=== PATIENT | female | born 1940 | race Caucasian/White ===

== ENCOUNTER 2018-08-28 11:13 | Outpatient (CLI) | payer MEDICARE, OTHER, SELFPAY ==
--- NOTE | 2018-08-28 12:55 | DI.RAD_ITS ---
SYMPTOM/DIAGNOSIS: SOB, R06.02 PA AND LATERAL CHEST: Heart size and pulmonary vasculature are within normal limits. The lungs show no evidence of congestive heart failure or pneumonia. No effusions or pneumothoraces are identified. Stable degenerative changes are seen in the spine. IMPRESSION: No acute pulmonary process.
== END 2018-08-28 11:33 ==
PROVIDERS: PCP Family Medicine; Visit Provider Physician Assistant Medical
DX: R05 Cough (principal); R06.02 Shortness of breath
CPT/HCPCS: 71046

== ENCOUNTER 2018-08-28 13:58 | Outpatient (REF) | payer MEDICARE, OTHER, SELFPAY ==
[2018-08-28 19:28] LABS: Absolute Basophil Count 0.01 k/cumm (0.0-0.2); Absolute Eosinophil Count 0.16 k/cumm (0.0-0.7); Absolute Lymphocyte Count 1.49 k/cumm (1.2-3.4); Absolute Monocyte Count 0.63 k/cumm (0.11-0.7); Absolute Neutrophil Count 3.44 k/cumm (1.2-6.7); Basophils % 0.2; Eosinophils % 2.8; HCT 35.8 % (36.0-46.0); HGB 11.4 g/dL (12.0-15.5); Mean Corp. HGB Concentration 31.8 g/dL (32.0-36.0); Mean Corpuscular Hemoglobin 30.3 pg (27.0-33.0); Mean Corpuscular Volume 95.2 fL (80-95); Mean Platelet Volume 10.3 fL (8.0-11.0); Platelet Count 285 x1000/uL (130-400); RBC 3.76 m/cumm (4.00-5.20); RBC Distribution Width 13.3 % (11.7-14.6); White Blood Cell Count 5.73 k/cumm (4.4-10.8)
[2018-08-28 19:35] LABS: INR 1.1 (1.0-3.5); Prothrombin Time 10.3 sec (9.3-10.8)
[2018-08-28 19:38] LABS: ALT 20 U/L (12-78); AST 28 U/L (15-37); Albumin 3.7 g/dL (3.4-5.0); Alkaline Phosphatase 97 U/L (46-116); Anion Gap 9.8 mmol/L (3-11); BUN 26 mg/dL (7-18); Bilirubin, Total 0.5 mg/dL (0.2-1.0); CO2 28.2 mmol/L (21.0-32.0); Chloride 102 mmol/L (98-107); Cholesterol 216 mg/dL (50-200); Estimated GFR 36.46 (mL/min/1.73m2); Glucose 92 mg/dL (70-100); HDL Cholesterol 67 mg/dL (40-60); LDL CHOLESTEROL 136 mg/dL (<100); Potassium 4.9 mmol/L (3.5-5.1); Sodium 140 mmol/L (136-145); Total Protein 6.7 g/dL (6.4-8.2); Triglyceride 117 mg/dL (30-150)
== END 2018-08-28 14:18 ==
LOC: NCHCN 13:58
PROVIDERS: PCP Family Medicine; Visit Provider Physician Assistant Medical
DX: I48.91 Unspecified atrial fibrillation (principal); R60.0 Localized edema; R06.02 Shortness of breath; E78.5 Hyperlipidemia, unspecified; I10 Essential (primary) hypertension
CPT/HCPCS: 80053; 80061; 83721; 85025; 85610

== ENCOUNTER 2018-08-30 07:38 | Outpatient (CLI) | payer MEDICARE, OTHER, SELFPAY ==
[2018-08-30 08:12] LABS: Prothrombin Time 9.9 sec (9.3-10.8)
== END 2018-08-30 07:58 ==
PROVIDERS: PCP Family Medicine; Visit Provider Physician Assistant Medical
DX: I48.91 Unspecified atrial fibrillation (principal); Z79.01 Long term (current) use of anticoagulants
CPT/HCPCS: 36415; 85610

== ENCOUNTER 2018-09-02 08:35 | Outpatient (CLI) | payer MEDICARE, OTHER, SELFPAY ==
[2018-09-02 09:28] LABS: INR 1.1 (1.0-3.5); Prothrombin Time 10.9 sec (9.3-10.8)
== END 2018-09-02 08:55 ==
PROVIDERS: PCP Family Medicine; Visit Provider Physician Assistant Medical
DX: I48.91 Unspecified atrial fibrillation (principal); Z79.01 Long term (current) use of anticoagulants
CPT/HCPCS: 36415; 85610

== ENCOUNTER 2018-10-01 10:42 | Outpatient (CLI) | payer MEDICARE, OTHER, SELFPAY ==
[2018-10-01 11:29] LABS: Abs Immature Grans 0.01 k/cumm (0.0-0.09); Absolute Basophil Count 0.01 k/cumm (0.0-0.2); Absolute Eosinophil Count 0.07 k/cumm (0.0-0.7); Absolute Lymphocyte Count 1.13 k/cumm (1.2-3.4); Absolute Monocyte Count 0.75 k/cumm (0.11-0.7); Absolute Neutrophil Count 5.19 k/cumm (1.2-6.7); Basophils % 0.1; HCT 33.3 % (36.0-46.0); HGB 10.5 g/dL (12.0-15.5); Immature Grans % 0.1; Lymphocytes % 15.8; Mean Corp. HGB Concentration 31.5 g/dL (32.0-36.0); Mean Corpuscular Hemoglobin 29.7 pg (27.0-33.0); Mean Corpuscular Volume 94.1 fL (80-95); Mean Platelet Volume 9.9 fL (8.0-11.0); Monocytes % 10.5; Neutrophils % 72.5; Platelet Count 228 x1000/uL (130-400); RBC 3.54 m/cumm (4.00-5.20); RBC Distribution Width 13.5 % (11.7-14.6); White Blood Cell Count 7.16 k/cumm (4.4-10.8)
[2018-10-01 12:56] LABS: ALT 24 U/L (12-78); AST 29 U/L (15-37); Albumin 3.5 g/dL (3.4-5.0); Alkaline Phosphatase 87 U/L (46-116); Anion Gap 10.4 mmol/L (3-11); BUN 21 mg/dL (7-18); Bilirubin, Total 0.9 mg/dL (0.2-1.0); CO2 28.6 mmol/L (21.0-32.0); CREATININE 1.14 mg/dL (0.55-1.02); Calcium 8.6 mg/dL (8.5-10.1); Chloride 101 mmol/L (98-107); Estimated GFR 46.22 (mL/min/1.73m2); Glucose 124 mg/dL (70-100); NT-proBNP 1918 pg/mL; Potassium 3.9 mmol/L (3.5-5.1); Sodium 140 mmol/L (136-145); Total Protein 6.6 g/dL (6.4-8.2)
== END 2018-10-01 11:02 ==
PROVIDERS: PCP Family Medicine; Visit Provider Specialist/Technologist Athletic Trainer
DX: I50.9 Heart failure, unspecified (principal); R06.02 Shortness of breath; I48.91 Unspecified atrial fibrillation
CPT/HCPCS: 36415; 80053; 83880; 85025

== ENCOUNTER 2018-10-19 19:37 | Outpatient (REF) | payer MEDICARE, OTHER, SELFPAY ==
[2018-10-19 22:17] LABS: HCT 37.5 % (36.0-46.0); HGB 12.1 g/dL (12.0-15.5)
[2018-10-19 22:30] LABS: ALT 27 U/L (12-78); AST 28 U/L (15-37); Albumin 3.5 g/dL (3.4-5.0); Alkaline Phosphatase 100 U/L (46-116); Anion Gap 8.3 mmol/L (3-11); BUN 37 mg/dL (7-18); Bilirubin, Total 0.3 mg/dL (0.2-1.0); CO2 30.7 mmol/L (21.0-32.0); CREATININE 1.81 mg/dL (0.55-1.02); Calcium 9.4 mg/dL (8.5-10.1); Chloride 100 mmol/L (98-107); Estimated GFR 27.11 (mL/min/1.73m2); Glucose 104 mg/dL (70-100); Magnesium 2.1 mg/dL (1.8-2.4); NT-proBNP 1969 pg/mL; Potassium 4.5 mmol/L (3.5-5.1); Sodium 139 mmol/L (136-145); Total Protein 6.8 g/dL (6.4-8.2)
== END 2018-10-19 19:57 ==
LOC: NCHCN 19:37
PROVIDERS: PCP Family Medicine; Visit Provider Specialist/Technologist Athletic Trainer
DX: R42 Dizziness and giddiness (principal); I50.9 Heart failure, unspecified; R27.9 Unspecified lack of coordination
CPT/HCPCS: 80053; 83735; 83880; 85014; 85018

== ENCOUNTER 2018-10-23 12:39 | Outpatient (REF) | payer MEDICARE, OTHER, SELFPAY ==
[2018-10-23 19:08] LABS: Anion Gap 5.5 mmol/L (3-11); BUN 29 mg/dL (7-18); CO2 32.5 mmol/L (21.0-32.0); CREATININE 1.52 mg/dL (0.55-1.02); Chloride 103 mmol/L (98-107); Estimated GFR 33.16 (mL/min/1.73m2); Glucose 97 mg/dL (70-100); Potassium 4.5 mmol/L (3.5-5.1); Sodium 141 mmol/L (136-145)
== END 2018-10-23 12:59 ==
LOC: NCHCN 12:39
PROVIDERS: PCP Family Medicine; Visit Provider Family Medicine
DX: I50.9 Heart failure, unspecified (principal)
CPT/HCPCS: 80048

== ENCOUNTER 2018-11-02 01:32 | Outpatient (CLI) | payer MEDICARE, OTHER, SELFPAY ==
--- NOTE | 2018-11-02 14:45 | DI.US_ITS ---
SYMPTOM/DIAGNOSIS: DIZZY SPELLS, R42 CAROTID ULTRASOUND: There is a mild amount of calcified and non calcified plaque in the proximal right internal carotid artery. The right common carotid artery is tortuous. There is mild systolic velocity of elevation in the distal right internal carotid artery consistent with a 50-60% stenosis. No significant plaque or velocity elevations are seen in the left internal carotid artery. Both vertebral arteries show antegrade flow. IMPRESSION: Mild amount of plaque in the proximal right internal carotid artery. Mild velocity elevation corresponding to 50-60% stenosis. No significant left internal carotid artery stenosis.
== END 2018-11-02 01:52 ==
PROVIDERS: PCP Family Medicine; Visit Provider Specialist/Technologist Athletic Trainer
DX: R42 Dizziness and giddiness (principal); I65.21 Occlusion and stenosis of right carotid artery
CPT/HCPCS: 93880

== ENCOUNTER 2018-12-01 03:03 | Outpatient (CLI) | payer MEDICARE, OTHER, SELFPAY ==
--- NOTE | 2018-12-01 | PFT_ITS ---
PULMONARY FUNCTION TEST REPORT Patient identification Lyubov Lopez DATE OF 1940 DATE OF SERVICE 12/01/18 REQUESTING PROVIDER - Lyubov Tee M.D. INTERPRETATION OF STUDY Spirometry shows no evidence of obstructive airways disease, but there is significant bronchodilator response. LUNG VOLUMES - Lung volumes show no evidence of restriction. DIFFUSION CAPACITY- Moderately reduced, which is normal when corrected to alveolar volume. AIRWAY RESISTANCE - Normal. IMPRESSION While there is no evidence of obstructive airways disease, there is significant bronchodilator response and this is associated with moderate diffusion defect. This may still go along with underlying hyper reactive airway, therefore if the diagnosis of asthma is in question, proceeding with methacholine challenge could prove to be useful. Maria De Jesus Reece M.D. PEACE/doreen T 12/02/18
[2018-12-01] MEDS: Inhaler, Assist Device 1 EACH MC (11:13)
[2018-12-01] MEDS: Albuterol HFA 18 GM 200 PUFF INH IH (11:13)
== END 2018-12-01 03:23 ==
PROVIDERS: PCP Family Medicine; Visit Provider Family Medicine
DX: R06.02 Shortness of breath (principal); Z87.891 Personal history of nicotine dependence
CPT/HCPCS: 94060; 94150; 94726; 94729

== ENCOUNTER 2018-12-11 18:27 | Outpatient (REF) | payer MEDICARE, OTHER, SELFPAY | END 2018-12-11 18:47 | LOC: NCHCN 18:27 | PROVIDERS: PCP Family Medicine; Visit Provider Family Medicine | DX: R30.0 Dysuria (principal) | CPT/HCPCS: 87077; 87086; 87186 ==

== ENCOUNTER 2018-12-25 14:33 | Outpatient (CLI) | payer MEDICARE, OTHER, SELFPAY ==
[2018-12-25 15:03] LABS: Creatine Kinase 146 U/L (26-192); Troponin I 0.02 ng/mL (0.00-0.06)
[2018-12-25 15:23] LABS: Cholesterol 274 mg/dL (50-200); HDL Cholesterol 70 mg/dL (40-60); LDL CHOLESTEROL 180 mg/dL (<100); Triglyceride 118 mg/dL (30-150)
== END 2018-12-25 14:53 ==
PROVIDERS: PCP Family Medicine; Visit Provider Family Medicine
DX: E78.5 Hyperlipidemia, unspecified (principal); I25.10 Atherosclerotic heart disease of native coronary artery without angina pectoris; K21.9 Gastro-esophageal reflux disease without esophagitis; I48.91 Unspecified atrial fibrillation
CPT/HCPCS: 36415; 80061; 82550; 83721; 84484

== ENCOUNTER 2019-01-15 03:01 | Outpatient (CLI) | payer MEDICARE, OTHER, SELFPAY ==
--- NOTE | 2019-01-15 09:43 | PFT_ITS ---
PULMONARY FUNCTION TEST REPORT DATE OF SERVICE: January 15, 2019 REQUESTING PROVIDER: Lyubov Tee M.D. Spirometry shows no evidence of obstructive airways disease, no bronchodilator response. IMPRESSION: Normal spirometry. Clinical correlation recommended. PEACE/patric D/
--- NOTE | 2019-01-15 09:52 | PFT_ITS ---
METHACHOLINE CHALLENGE TEST DATE OF SERVICE: January 15, 2019 Good patient effort. After normal spirometry, methacholine challenge testing was carried out up to a methacholine concentration of 1 mg/mL. At that point the patient had a 20% drop in FEV1. IMPRESSION: Strongly positive methacholine challenge test. Clinical correlation recommended. PEACE/patric D/
[2019-01-15] MEDS: Methacholine 100 MG VIAL IH (13:42)
[2019-01-15] MEDS: Albuterol HFA 18 GM 200 PUFF INH IH (13:43)
[2019-01-15] MEDS: Inhaler, Assist Device 1 EACH MC (13:43)
== END 2019-01-15 03:21 ==
PROVIDERS: PCP Family Medicine; Visit Provider Family Medicine
DX: R06.02 Shortness of breath (principal)
CPT/HCPCS: 94060; 95070; J7674

== ENCOUNTER 2019-05-17 12:22 | Emergency (ER) | payer MEDICARE, OTHER, SELFPAY ==
--- NOTE | 2019-05-17 12:29 | DI.CT_ITS ---
SYMPTOMS/DIAGNOSIS: FRONTAL TRAUMA, LOW NECK PAIN, ON COUMADIN CT BRAIN: Noncontrast examination was performed. Age-appropriate cerebral atrophy and small vessel ischemic disease is present. No acute intracranial hemorrhage, midline shift or mass effect is identified. The ventricles are intact. The basilar cisterns are patent. The visualize paranasal sinuses are clear, as are the mastoid air cells. The calvarium is intact. IMPRESSION: No acute intracranial process. CT SCAN OF THE CERVICAL SPINE: Multiple contiguous axial images of the cervical spine were obtained. Sagittal and coronal reformatted images were evaluated on the Siemens workstation. No acute fractures or subluxations in the cervical spine are obtained. Moderate degenerative changes are present throughout the cervical spine. The soft tissues are unremarkable. IMPRESSION: No acute fractures or subluxations in the cervical spine. The findings were discussed with the Emergency Department on the date of the examination.
[2019-05-17 12:30] VITALS: PULSE 80; RESP 18; TEMP 36.8; O2SAT 98
[2019-05-17 12:34] VITALS: BP 190/80
--- NOTE | 2019-05-17 12:39 | ED.GENADUL_ITS ---
Discharge Plan Disposition Patient Disposition: HOME Condition: Improving Discharge Details Chief Complaint: HeadInjury Clinical Impression: Contusion of face Primary Care Provider: Tony Tatum ED Provider: Josué Kidd Home Meds and New Rx's Prescriptions: Continued tramadol [Ultram] 50 MG tablet 50 mg PO BID RF: 0 amitriptyline 50 MG tablet 50 mg PO HS PRN PRNRF: 0 pantoprazole 40 MG tablet,delayed release (DR/EC) 40 mg PO DAILY RF: 0 hydroxychloroquine 200 MG tablet 200 mg PO DAILY RF: 0 Savella 50 MG tablet 50 mg PO BID RF: 0 furosemide 40 mg Tablet 40 mg DAILY RF: 0 hydralazine 10 mg Tablet 10 mg DAILY RF: 0 atorvastatin 20 mg Tablet 20 mg DAILY RF: 0 albuterol sulfate 2.5 mg /3 mL (0.083 %) Solution For Nebulization 2.5 mg PRNRF: 0 amiodarone 200 mg Tablet 200 mg DAILY RF: 0 amitriptyline 50 mg Tablet 50 mg DAILY RF: 0 warfarin 5 mg Tablet 5 - 25 mg DAILY RF: 0 metoprolol tartrate 50 mg Tablet 50 mg DAILY RF: 0 loratadine 10 mg Tablet 10 mg RF: 0 Discharge Instructions Instructions: Contusion in Adults (ED) Additional Instructions: Your INR was 1.[address] scan of the head, cervical spine, and x-rays of the chest and ribs did not show an acute finding. You have a contusion and bruising which will progress and you may develop bruising around both eyes and cheeks. May apply ice to the area to reduce discomfort. Warm compress will aid in healing. Continue your regular medications. Return for any acute concerns Medical Decision Making 78-year-old female was anticoagulated on warfarin. She was leaving her family's house last night when she tripped and stumbled down 2 stairs, striking the edge of a door with her forehead and was knocked to the ground. She did not have loss of consciousness. She slept well last night. Today she has mild left chest discomfort along the rib wall, and mild headache. Labs are unremarkable given her age. CT scan of the head and cervical spine without acute findings. Chest and rib x-rays without acute finding. Consistent with frontal contusion. Discussed with her anticipated course of resolution of the ecchymosis. She is stable for discharge to home with family Lab Data Lab results reviewed: Yes I reviewed the patient's lab results. Laboratory Results - last 24 hr 05/17/19 05/17/19 05/17/19 12:41 12:41 12:41 WBC 7.93 RBC 3.93 L Hgb 12.0 Hct 37.0 MCV 94.1 MCH 30.5 MCHC 32.4 RDW 13.6 Plt Count 268 MPV 10.0 PT 18.1 H INR 1.8 H Sodium 140 Potassium 4.1 Chloride 103 Carbon Dioxide 27.8 Anion Gap 9.2 BUN 28 H Creatinine 1.50 H Estimated GFR/1.73 m2 33.67 Glucose 104 H Calcium 9.1 HPI General Mode of arrival: ambulatory . Date/Time Provider Initiated Documentation: 05/17/19 12:29 . Limitations to Documentation: no limitations . Information obtained by: patient . History of Present Illness 78 year old F presents to the emergency department with the chief complaint of Frontal trauma last night after falling, described as moderate, Quality is described as dull, and is localized to the head. Patient reports no radiation. Patient started experiencing this hour(s) and it has been constant. No relieving factors improve symptom(s), No exacerbating factors reported . Patient notes other (Mild left chest discomfort); denies fever/chills, headaches, syncope and weakness. Patient did receive the following treatments prior to arrival, none Related Data Home Medications Medication Instructions Recorded Confirmed Savella 50 mg PO BID 11/24/17 05/17/19 amitriptyline 50 mg PO HS PRN PRN 11/24/17 05/17/19 hydroxychloroquine 200 mg PO DAILY 11/24/17 05/17/19 pantoprazole 40 mg PO DAILY 11/24/17 05/17/19 tramadol [Ultram] 50 mg PO BID 11/24/17 05/17/19 albuterol sulfate 2.5 mg PRN 05/17/19 amiodarone 200 mg DAILY 05/17/19 05/17/19 amitriptyline 50 mg DAILY 05/17/19 05/17/19 atorvastatin 20 mg DAILY 05/17/19 05/17/19 furosemide 40 mg DAILY 05/17/19 05/17/19 hydralazine 10 mg DAILY 05/17/19 05/17/19 loratadine 10 mg 05/17/19 metoprolol tartrate 50 mg DAILY 05/17/19 05/17/19 warfarin 5 - 25 mg DAILY 05/17/19 05/17/19 Allergies Allergy/AdvReac Type Severity Reaction Status Date / Time Sulfa (Sulfonamide Allergy Unverified 05/17/19 12:30 Antibiotics) cat scan dye AdvReac Uncoded 05/17/19 12:30 General Stated Complaint: HeadInjury COURT: 2 Review of Systems Review of Systems 6 systems reviewed and otherwise negative. No loss of consciousness. No weakness or tingling of the upper extremities. No shortness of breath. Mild left chest discomfort. Tetanus up to date [facility] Social History Smoking/Tobacco Use Status: Former Tobacco Use Alcohol Intake: current Alcohol Intake frequency: holidays/special occasions only Drug use: Never Substance use type: does not use Do you feel safe at home: Yes Do you feel safe in your relationship?: Yes Exam Narrative Exam Narrative: GEN: awake, alert, oriented 3. Pleasant, well groomed, interactive. HEAD: Frontal ecchymosis and swelling with bilateral periorbital bruising. Abrasion to forehead. The neck is nontender ENT: Mucous membranes moist, oropharynx unremarkable, External ear exam unremarkable EYES: PERRL, EOMI NECK: Full ROM, no REFUIGO, no menigismus. Nontender CHEST/RESP: Minimal left lateral chest wall tenderness, clear to auscultation bilateral, no wheeze/rhonchi/rales CARDIOVASCULAR: RRR, no murmur, rub froylan. 2+ Rad pulse bilateral ABDOMEN: Soft, nontender, no mass. +Bowel sounds EXT: Full ROM, no edema, no rash Neuro: Grossly normal neurologic exam, conversant, interactive. Psych: Speech fluent, thoughts congruent, affect normal Course Vital Signs Temperature 36.8 C 05/17/19 12:30 Pulse 80 05/17/19 12:30 Respiratory Rate 18 05/17/19 12:30 Pulse Oximetry 98 05/17/19 12:30 Temperature 36.8 C 05/17/19 12:30 Temperature Source Skin 05/17/19 12:30 Pulse 80 05/17/19 12:30 Respiratory Rate 18 05/17/19 12:30 Blood Pressure 190/80 H 05/17/19 12:34 Pulse Oximetry 98 05/17/19 12:30 Oxygen Delivery Method Room Air 05/17/19 12:30 Oxygen Flow Rate 0 05/17/19 12:30 Pain Level 5 05/17/19 12:30
--- NOTE | 2019-05-17 12:39 | DI.RAD_ITS ---
SYMPTOMS/DIAGNOSIS: S/P FALL LAST NIGHT RIGHT RIBS WITH PA AND LATERAL CHEST: Comparison is 08/28/18. The heart is upper limits of normal to mildly enlarged but stable. Pulmonary vasculature is within normal limits. No focal consolidating infiltrates or effusions are seen. No pneumothorax is identified. There is no evidence of a left rib fracture. Degenerative changes are seen in the spine. IMPRESSION: No acute abnormality. No evidence of a left rib fracture.
[2019-05-17 13:02] LABS: Mean Corp. HGB Concentration 32.4 g/dL (32.0-36.0); Mean Corpuscular Hemoglobin 30.5 pg (27.0-33.0); Mean Corpuscular Volume 94.1 fL (80-95); Platelet Count 268 x1000/uL (130-400); RBC 3.93 m/cumm (4.00-5.20); RBC Distribution Width 13.6 % (11.7-14.6); White Blood Cell Count 7.93 k/cumm (4.4-10.8)
[2019-05-17 13:23] LABS: Anion Gap 9.2 mmol/L (3-11); BUN 28 mg/dL (7-18); CO2 27.8 mmol/L (21.0-32.0); Calcium 9.1 mg/dL (8.5-10.1); Chloride 103 mmol/L (98-107); Estimated GFR 33.67 (mL/min/1.73m2); Glucose 104 mg/dL (70-100); Potassium 4.1 mmol/L (3.5-5.1); Sodium 140 mmol/L (136-145)
[2019-05-17 13:29] LABS: INR 1.8 (0.9-1.1); Prothrombin Time 18.1 sec (9.3-11.0)
[2019-05-17 13:40] VITALS: BP 110/56; PULSE 61; RESP 16; TEMP 37.4; O2SAT 100
[2019-05-17 14:41] VITALS: BP 185/85; PULSE 66; RESP 14; TEMP 36.6; O2SAT 100
== END 2019-05-17 14:47 | disposition home or self-care (01) ==
PROVIDERS: Emergency Provider Emergency Medicine; PCP Family Medicine
DX: S00.83XA Contusion of other part of head, initial encounter (principal); R07.81 Pleurodynia; W10.8XXA Fall (on) (from) other stairs and steps, initial encounter; W22.09XA Striking against other stationary object, initial encounter; Z79.01 Long term (current) use of anticoagulants
CPT/HCPCS: 36415; 80048; 85027; 99284; 70450; 71046; 71100; 72125; 85610

== ENCOUNTER 2019-07-27 12:20 | Outpatient (REF) | payer MEDICARE, OTHER, SELFPAY ==
[2019-07-27 21:27] LABS: ALT 23 U/L (14-59); AST 24 U/L (15-37); Albumin 3.4 g/dL (3.4-5.0); Alkaline Phosphatase 92 U/L (46-116); Anion Gap 4.2 mmol/L (3-11); BUN 23 mg/dL (7-18); Bilirubin, Total 0.5 mg/dL (0.2-1.0); CO2 31.8 mmol/L (21.0-32.0); CREATININE 1.65 mg/dL (0.55-1.02); Calcium 8.5 mg/dL (8.5-10.1); Calculated LDL 48 mg/dL; Chloride 104 mmol/L (98-107); Cholesterol 144 mg/dL (50-200); Estimated GFR 30.09 (mL/min/1.73m2); Glucose 111 mg/dL (70-100); HDL Cholesterol 62 mg/dL (40-60); Potassium 4.2 mmol/L (3.5-5.1); Sodium 140 mmol/L (136-145); TSH (W/Ref FT4) 1.88 uIU/mL (0.36-3.74); Total Protein 6.4 g/dL (6.4-8.2); Triglyceride 170 mg/dL (30-150)
[2019-07-27 21:39] LABS: HCT 34.2 % (36.0-46.0); HGB 10.7 g/dL (12.0-15.5); Mean Corp. HGB Concentration 31.3 g/dL (32.0-36.0); Mean Corpuscular Hemoglobin 30.1 pg (27.0-33.0); Mean Corpuscular Volume 96.1 fL (80-95); Mean Platelet Volume 10.1 fL (8.0-11.0); Platelet Count 310 x1000/uL (130-400); RBC 3.56 m/cumm (4.00-5.20); RBC Distribution Width 13.7 % (11.7-14.6); White Blood Cell Count 5.65 k/cumm (4.4-10.8)
== END 2019-07-27 12:40 ==
LOC: NCHCN 12:20
PROVIDERS: PCP Family Medicine; Visit Provider Family Medicine
DX: I10 Essential (primary) hypertension (principal); E78.5 Hyperlipidemia, unspecified; N18.9 Chronic kidney disease, unspecified; M32.9 Systemic lupus erythematosus, unspecified
CPT/HCPCS: 80053; 80061; 85027; 83735; 84443

== ENCOUNTER 2019-08-27 09:29 | Day surgery (SDC) | payer MEDICARE, OTHER, SELFPAY ==
[2019-08-27 10:01] VITALS: BP 144/56; PULSE 59; RESP 16; TEMP 36.4; O2SAT 96
[2019-08-27] MEDS: Lactated Ringers 1,000 ML 80 ML IV (10:48)
[2019-08-27] MEDS: ceFAZolin 1 GM/50 ML BAG IVPB (10:50)
[2019-08-27] MEDS: Dexamethasone 4 MG/ML VIAL (11:15)
[2019-08-27] MEDS: Bupivacaine 0.5% Pres-Free 30 ML VIAL (11:15)
--- NOTE | 2019-08-27 11:21 | PDOC.DSDIS_ITS ---
Discharge Plan Disposition Patient Disposition: HOME Condition: Good Discharge Details Reason For Visit: correction left 2nd hammertoe Attending Provider: Radames Trammell Primary Care Provider: Lyubov Tee V Home Meds and New Rx's Prescriptions: New hydrocodone-acetaminophen [[place]] 5-325 mg tablet 1 tab PO Q6H PRN (Reason: post op pain) Qty: 7 RF: 0 Continued tramadol [Ultram] 50 MG tablet 50 mg PO BID RF: 0 amitriptyline 50 MG tablet 50 mg PO HS PRN PRNRF: 0 pantoprazole [Protonix] 40 MG tablet,delayed release (DR/EC) 40 mg PO DAILY RF: 0 hydroxychloroquine 200 MG tablet 200 mg PO DAILY RF: 0 Savella 50 MG tablet 50 mg PO BID RF: 0 furosemide 40 mg Tablet 40 mg DAILY RF: 0 hydralazine 10 mg Tablet 10 mg DAILY RF: 0 atorvastatin [Lipitor] 20 mg Tablet 20 mg DAILY RF: 0 albuterol sulfate 2.5 mg /3 mL (0.083 %) Solution For Nebulization 2.5 mg PRNRF: 0 amiodarone [[place]] 200 mg Tablet 200 mg DAILY RF: 0 amitriptyline 50 mg Tablet 50 mg DAILY RF: 0 warfarin 5 mg Tablet 5 - 25 mg DAILY RF: 0 metoprolol tartrate 50 mg Tablet 50 mg DAILY RF: 0 loratadine 10 mg Tablet 10 mg RF: 0 cholecalciferol (vitamin D3) [Vitamin D3] 1,000 unit Capsule 1,000 unit PO DAILY RF: 0 polyethylene glycol 3350 [Miralax] 17 gram Powder In Packet 17 g PO DAILY RF: 0 esomeprazole magnesium 40 mg Capsule,Delayed Release(Dr/Ec) 40 mg PO DAILY RF: 0 multivitamin with minerals [Multiple Vitamin-Minerals] Tablet 1 tab PO DAILY RF: 0 albuterol sulfate 90 mcg/actuation Hfa Aerosol Inhaler INHALATION RF: 0 Discharge Instructions Activity:: Activity as Tolerated Shower/Bathe:: Cover Diet:: Normal Diet Discharge Orders Discharge Orders: Discharge Order (Routine); Ordered 08/27/19 Ordered By: Radames Trammell DS: Diagnosis Discharge Diagnosis (1) Hammertoe of second toe of left foot: Status: Acute
--- NOTE | 2019-08-27 11:39 | ROE_ITS ---
DATE OF PROCEDURE: August 27, 2019 PREOPERATIVE DIAGNOSIS: Dorsally dislocated, rigidly contracted left second hammertoe deformity. POSTOPERATIVE DIAGNOSIS: Same. PROCEDURE: Amputation of the left second toe at the MPJ level. SURGEON: Radames Trammell D.P.M. ANESTHESIA: Local anesthesia utilizing 10 cc's of a 50:50 mixture Lidocaine with epinephrine 1:200,0 00 and 0.5% Marcaine plain. OPERATIVE INDICATIONS: 79-year-old white female with chronic and increasing pain associated with a d orsally dislocated left second, rigidly contracted hammertoe interfering with shoe gear and ambulatio n. She understands the permanency of the procedure. She understands risks and complications pertain ing to pain, scarring, infection, wound dehiscence. She understands that the bunion deformity will e nlarge and the great toe will touch the third toe. Informed consent has been obtained. All question s answered. REPORT OF OPERATION: Lyubov was brought to the operative suite, placed in the supine position where t he left foot is prepped and draped in the usual sterile podiatric fashion. A time-out was performed. Anesthesia was obtained by a digital block just proximal to the second MPJ consisting of 10 cc's of a 50:50 mixture 1% Lidocaine with epinephrine 1:200,000 and 0.5% Marcaine plain. Attention was directed to the second toe where two converging semi-elliptical incisions were placed a t the base of the second toe. The skin wedges were brought up. The extensor tendon was severed. Di ssection was carried down with a #15 scalpel to the base of the proximal phalanx. The scalpel was th en advanced proximally to the metatarsophalangeal joint, where the joint capsule was released. The s kin incision was then completed plantar medially and plantar laterally. The wedge was raised; the fl exor tendon was severed; the scalpel was brought down to the base of the proximal phalanx; it was bro ught proximally and the joint capsule plantarly was released and the second digit was removed from th e surgical wound. Inspection of the base of the wound appeared healthy. No pathology was noted. He mostasis was well-controlled. The space was closed with simple interrupted suture #3-0 Vicryl a nd the skin was coapted with #4-0 nylon simple interrupted technique. Four milligrams of dexamethaso ne phosphate was infused. Xeroform, gauze fluff compression dressings were applied. Sharp and spong es counts were correct. Chandni left the OR with vital signs stable, vascular status intact. She will be followed by me in the office next week. cc: Lyubov Tee M.D.
== END 2019-08-27 12:10 | disposition home or self-care (01) ==
PROVIDERS: PCP Family Medicine; Visit Provider Podiatrist
PROC: (CPT 28820; principal; 2019-08-27 10:30)
DX: M20.42 Other hammer toe(s) (acquired), left foot (principal); I10 Essential (primary) hypertension
CPT/HCPCS: 28820; 96365; J0690; J1100

== ENCOUNTER 2019-09-14 11:07 | Outpatient (REF) | payer MEDICARE, OTHER, SELFPAY ==
[2019-09-14 19:26] LABS: HCT 36.3 % (36.0-46.0); HGB 11.2 g/dL (12.0-15.5); Mean Corp. HGB Concentration 30.9 g/dL (32.0-36.0); Mean Corpuscular Hemoglobin 29.7 pg (27.0-33.0); Mean Corpuscular Volume 96.3 fL (80-95); Mean Platelet Volume 10.1 fL (8.0-11.0); Platelet Count 310 x1000/uL (130-400); RBC 3.77 m/cumm (4.00-5.20); RBC Distribution Width 13.9 % (11.7-14.6); White Blood Cell Count 6.22 k/cumm (4.4-10.8)
[2019-09-14 20:16] LABS: Ferritin 66 ng/mL (8-252); Folate 14.6 ng/mL (8.6-20.0); Vitamin B12 844 pg/mL (193-986)
== END 2019-09-14 11:27 ==
LOC: NCHCN 11:07
PROVIDERS: PCP Family Medicine; Visit Provider Physician Assistant Medical
DX: D64.9 Anemia, unspecified (principal); R42 Dizziness and giddiness; M79.7 Fibromyalgia
CPT/HCPCS: 85027; 82607; 82728; 82746

== ENCOUNTER 2019-09-29 16:13 | Outpatient (CLI) | payer MEDICARE, OTHER, SELFPAY ==
[2019-10-01 15:43] LABS: Albumin 60.7 % (55.8-66.1); Comment (See Note); Total Protein 6.5 g/dL (6.3-8.2)
[2019-10-05 12:54] LABS: Immunotyping, Serum (See Note)
[2019-10-07 09:38] LABS: SS-A Antibody 1.2 Units (<20.0)
[2019-10-07 16:06] LABS: Sm (Smith) Ab, IgG 1.1 Units (<20.0)
[2019-10-07 16:16] LABS: RNP Ab, IgG 1.4 Units (<20.0); SS-B (La) Ab, IgG 9.1 Units (<20.0)
== END 2019-09-29 16:33 ==
PROVIDERS: PCP Family Medicine; Visit Provider Internal Medicine Rheumatology
DX: M32.9 Systemic lupus erythematosus, unspecified (principal)
CPT/HCPCS: 36415; 84165; 86235; 86320

== ENCOUNTER 2019-11-10 13:07 | Inpatient (IN) | payer MEDICARE, OTHER, SELFPAY ==
[2019-11-10] VITALS (102 sets, daily range): BP systolic 116–187; BP diastolic 56–134; PULSE 68–157; RESP 11–32; TEMP 36.4–36.8; O2SAT 86–97
[2019-11-10] MEDS: Normal Saline 250 ML IV (13:48)
[2019-11-10 14:00] LABS: Abs Immature Grans 0.01 k/cumm (0.0-0.09); Absolute Basophil Count 0.01 k/cumm (0.0-0.2); Absolute Eosinophil Count 0.03 k/cumm (0.0-0.7); Absolute Lymphocyte Count 0.93 k/cumm (1.2-3.4); Absolute Monocyte Count 0.87 k/cumm (0.11-0.7); Absolute Neutrophil Count 7.12 k/cumm (1.2-6.7); Basophils % 0.1; Eosinophils % 0.3; HCT 34.4 % (36.0-46.0); Immature Grans % 0.1 %; Lymphocytes % 10.4; Mean Corpuscular Hemoglobin 30.1 pg (27.0-33.0); Mean Platelet Volume 9.8 fL (8.0-11.0); Monocytes % 9.7; Neutrophils % 79.4; Platelet Count 268 x1000/uL (130-400); RBC 3.66 m/cumm (4.00-5.20); RBC Distribution Width 13.6 % (11.7-14.6); White Blood Cell Count 8.97 k/cumm (4.4-10.8)
[2019-11-10 14:08] LABS: Lactate 1.2 mmol/L (0.6-1.4)
[2019-11-10 14:15] LABS: ALT 24 U/L (14-59); AST 37 U/L (15-37); Albumin 3.4 g/dL (3.4-5.0); Alkaline Phosphatase 80 U/L (46-116); Anion Gap 9.5 mmol/L (3-11); BUN 23 mg/dL (7-18); Bilirubin, Total 1.5 mg/dL (0.2-1.0); CO2 26.5 mmol/L (21.0-32.0); CREATININE 1.25 mg/dL (0.55-1.02); Chloride 103 mmol/L (98-107); Estimated GFR 41.45 (mL/min/1.73m2); Glucose 98 mg/dL (74-106); Sodium 139 mmol/L (136-145)
[2019-11-10 14:17] LABS: Troponin I 0.61 ng/Ml (<0.06)
[2019-11-10 14:18] LABS: NT-proBNP 4428 pg/mL (<300)
--- NOTE | 2019-11-10 14:21 | ED.GENADUL_ITS ---
Discharge Plan Disposition Condition: Improving Discharge Details Chief Complaint: GenMedical Admit Date/Time: 11/10/19 18:07 Admit Provider: Matheus Melo Attending Provider: Heber Vaz Primary Care Provider: Lyubov Tee V ED Provider: Aretha East Discharge Instructions Activity:: Activity as Tolerated Equipment/Supplies:: No Equipment Needed Diet:: Low Sodium Discharge Orders Discharge Orders: Discharge Order (Routine); Ordered 11/14/19 Ordered By: Heber Vaz Discharge Data Discharge Date/Time-TO BE ENTERED AT DEPARTURE: 11/10/19 19:15 Medical Decision Making Chandni Lopez is a 79-year-old woman with a history of GERD, lupus, hyperlipidemia, A. fib on Coumadin who presented to the emergency department with 3 days of fatigue, dyspnea on exertion, also with vomiting yesterday. On exam patient is well and nontoxic appearing. Heart rate is borderline tachycardic and irregularly irregular. Lungs are clear to auscultation bilaterally. Abdominal exam is benign. +1 edema bilateral lower legs that patient reports is at baseline. Concern for CHF versus pneumonia versus ACS versus influenza versus other. Do not suspect pulmonary embolism at this time. Exam/history is not consistent with sepsis, acute aortic pathology. Plan for EKG, chest x-ray, screening labs, telemetry, IV. EKG with unclear rhythm, irregular wide complex tachycardia at 101 with 1 narrow complex present. No prior for comparison. Unclear accelerated idioventricular rhythm versus intermittent left bundle branch block. Patient is known to [facility] cardiology. I discussed patient presentation with cardiology team, who reviewed EKG which was faxed to them. They state the patient has known incomplete left bundle branch block, rhythm likely rate related incomplete left bundle/atrial fibrillation. Labs reviewed, troponin 0 0.61, BNP 4400, lactate 1.2, no leukocytosis. Plan for repeat troponin. Low suspicion for NSTEMI at this point given no acute ischemic EKG changes, no chest pain. Chest x-ray shows pulmonary edema, right-sided infiltrates of unclear etiology. Given patient is immunosuppressed, appearance of infiltrates, plan to treat for pneumonia with IV ceftriaxone, p.o. doxycycline.. 40 mg IV Lasix given. Repeat troponin decreased, 0.52. Plan for admission. Clinical impression: CHF, pulmonary infiltrate Disposition: [facility] inpatient Medical Records Medical records reviewed: Yes I reviewed the patient's medical records. Imaging Data Radiologic Study: Attestation: I personally reviewed and interpreted this imaging study as follows: Radiologist's impression: EXAM: XR PORTABLE CHEST AP INDICATION: SOB. COMPARISON: XR ribs LT w PA lat chest from 05/17/2019 TECHNIQUE: 2D digital imaging was performed. FINDINGS: The heart appears enlarged. There is prominence of the pulmonary vasculature. There is atherosclerosis of the thoracic aorta. Indistinct interstitial infiltrates are seen predominantly on the right. No focal consolidating infiltrate is present. No gross effusions or pneumothoraces are identified. IMPRESSION: 1. Mild cardiomegaly and indistinct pulmonary vasculature suspicious for pulmonary edema. 2. Ill-defined interstitial infiltrates predominantly on the right. Lab Data Lab results reviewed: Yes I reviewed the patient's lab results. Labs: 11/10/19 17:00 Blood Blood Culture - Pending 11/10/19 16:50 Blood Blood Culture - Pending 11/10/19 15:12 Urine - Reflex from Ua Urine Culture - Pending 11/10/19 13:30 Nasopharynx Influenza Types A,B Antigen - Final Laboratory Tests Range/Units 11/10/19 11/10/19 11/10/19 13:26 13:26 13:26 WBC (4.4-10.8) k/cumm 8.97 RBC (4.00-5.20) m/cumm 3.66 L Hgb (12.0-15.5) g/dL 11.0 L Hct (36.0-46.0) % 34.4 L MCV (80-95) fL 94.0 MCH (27.0-33.0) pg 30.1 MCHC (32.0-36.0) g/dL 32.0 RDW (11.7-14.6) % 13.6 Plt Count (130-400) x1000/uL 268 MPV (8.0-11.0) fL 9.8 Immature Gran % % 0.1 Neutrophils % 79.4 Lymphocytes % 10.4 Monocytes % 9.7 Eosinophils % 0.3 Basophils % 0.1 Absolute Neutrophils (1.2-6.7) k/cumm 7.12 H Absolute Lymphocytes (1.2-3.4) k/cumm 0.93 L Absolute Monocytes (0.11-0.7) k/cumm 0.87 H Absolute Eosinophils (0.0-0.7) k/cumm 0.03 Absolute Basophils (0.0-0.2) k/cumm 0.01 PT (9.3-11.0) sec INR (0.9-1.1) Sodium (136-145) mmol/L 139 Potassium (3.5-5.1) mmol/L 4.0 Chloride (98-107) mmol/L 103 Carbon Dioxide (21.0-32.0) mmol/L 26.5 Anion Gap (3-11) mmol/L 9.5 BUN (7-18) mg/dL 23 H Creatinine (0.55-1.02) mg/dL 1.25 H Estimated GFR/1.73 m2 (mL/min/1.73m2) 41.45 Glucose (74-106) mg/dL 98 Lactate (0.6-1.4) mmol/L Calcium (8.5-10.1) mg/dL 9.0 Total Bilirubin (0.2-1.0) mg/dL 1.5 H AST (15-37) U/L 37 ALT (14-59) U/L 24 Alkaline Phosphatase (46-116) U/L 80 Troponin I (<0.06) ng/Ml 0.61 H* NT-Pro-B Natriuret Pep (<300) pg/mL 4428 H Total Protein (6.4-8.2) g/dL 7.0 Albumin (3.4-5.0) g/dL 3.4 TSH (0.36-3.74) uIU/mL Urine Color (Yellow) Urine Clarity (Clear) Urine pH (5-8) Ur Specific [place] (1.005-1.025) Urine Protein (Negative) mg/dL Urine Ketones (Negative) mg/dL Urine Blood (Negative) Urine Nitrite (Negative) Urine Bilirubin (Negative) Urine Urobilinogen (Up TO 0.2) EU/dL Ur Leukocyte Esterase (Negative) Urine RBC (0-2) HPF Urine WBC (0-5) HPF Ur Epithelial Cells (Negative) HPF Urine Crystals (Negative) HPF Urine Bacteria (Negative) HPF Urine Casts (Negative) LPF Urine Mucus (Negative) Urine Other (Negative) Ur Culture Indicated? Urine Glucose (Negative) mg/dL Range/Units 11/10/19 11/10/19 11/10/19 13:26 13:26 13:54 WBC (4.4-10.8) k/cumm RBC (4.00-5.20) m/cumm Hgb (12.0-15.5) g/dL Hct (36.0-46.0) % MCV (80-95) fL MCH (27.0-33.0) pg MCHC (32.0-36.0) g/dL RDW (11.7-14.6) % Plt Count (130-400) x1000/uL MPV (8.0-11.0) fL Immature Gran % % Neutrophils % Lymphocytes % Monocytes % Eosinophils % Basophils % Absolute Neutrophils (1.2-6.7) k/cumm Absolute Lymphocytes (1.2-3.4) k/cumm Absolute Monocytes (0.11-0.7) k/cumm Absolute Eosinophils (0.0-0.7) k/cumm Absolute Basophils (0.0-0.2) k/cumm PT (9.3-11.0) sec 23.8 H INR (0.9-1.1) 2.4 H Sodium (136-145) mmol/L Potassium (3.5-5.1) mmol/L Chloride (98-107) mmol/L Carbon Dioxide (21.0-32.0) mmol/L Anion Gap (3-11) mmol/L BUN (7-18) mg/dL Creatinine (0.55-1.02) mg/dL Estimated GFR/1.73 m2 (mL/min/1.73m2) Glucose (74-106) mg/dL Lactate (0.6-1.4) mmol/L 1.2 Calcium (8.5-10.1) mg/dL Total Bilirubin (0.2-1.0) mg/dL AST (15-37) U/L ALT (14-59) U/L Alkaline Phosphatase (46-116) U/L Troponin I (<0.06) ng/Ml NT-Pro-B Natriuret Pep (<300) pg/mL Total Protein (6.4-8.2) g/dL Albumin (3.4-5.0) g/dL TSH (0.36-3.74) uIU/mL 1.07 Urine Color (Yellow) Urine Clarity (Clear) Urine pH (5-8) Ur Specific [place] (1.005-1.025) Urine Protein (Negative) mg/dL Urine Ketones (Negative) mg/dL Urine Blood (Negative) Urine Nitrite (Negative) Urine Bilirubin (Negative) Urine Urobilinogen (Up TO 0.2) EU/dL Ur Leukocyte Esterase (Negative) Urine RBC (0-2) HPF Urine WBC (0-5) HPF Ur Epithelial Cells (Negative) HPF Urine Crystals (Negative) HPF Urine Bacteria (Negative) HPF Urine Casts (Negative) LPF Urine Mucus (Negative) Urine Other (Negative) Ur Culture Indicated? Urine Glucose (Negative) mg/dL Range/Units 11/10/19 11/10/19 15:12 16:15 WBC (4.4-10.8) k/cumm RBC (4.00-5.20) m/cumm Hgb (12.0-15.5) g/dL Hct (36.0-46.0) % MCV (80-95) fL MCH (27.0-33.0) pg MCHC (32.0-36.0) g/dL RDW (11.7-14.6) % Plt Count (130-400) x1000/uL MPV (8.0-11.0) fL Immature Gran % % Neutrophils % Lymphocytes % Monocytes % Eosinophils % Basophils % Absolute Neutrophils (1.2-6.7) k/cumm Absolute Lymphocytes (1.2-3.4) k/cumm Absolute Monocytes (0.11-0.7) k/cumm Absolute Eosinophils (0.0-0.7) k/cumm Absolute Basophils (0.0-0.2) k/cumm PT (9.3-11.0) sec INR (0.9-1.1) Sodium (136-145) mmol/L Potassium (3.5-5.1) mmol/L Chloride (98-107) mmol/L Carbon Dioxide (21.0-32.0) mmol/L Anion Gap (3-11) mmol/L BUN (7-18) mg/dL Creatinine (0.55-1.02) mg/dL Estimated GFR/1.73 m2 (mL/min/1.73m2) Glucose (74-106) mg/dL Lactate (0.6-1.4) mmol/L Calcium (8.5-10.1) mg/dL Total Bilirubin (0.2-1.0) mg/dL AST (15-37) U/L ALT (14-59) U/L Alkaline Phosphatase (46-116) U/L Troponin I (<0.06) ng/Ml 0.52 H* NT-Pro-B Natriuret Pep (<300) pg/mL Total Protein (6.4-8.2) g/dL Albumin (3.4-5.0) g/dL TSH (0.36-3.74) uIU/mL Urine Color (Yellow) Yellow Urine Clarity (Clear) Clear Urine pH (5-8) 6.0 Ur Specific [place] (1.005-1.025) 1.015 Urine Protein (Negative) mg/dL Trace H Urine Ketones (Negative) mg/dL Negative Urine Blood (Negative) Trace-intact H Urine Nitrite (Negative) Negative Urine Bilirubin (Negative) Negative Urine Urobilinogen (Up TO 0.2) EU/dL 0.2 Ur Leukocyte Esterase (Negative) Trace H Urine RBC (0-2) HPF Negative Urine WBC (0-5) HPF 5-10 Ur Epithelial Cells (Negative) HPF Rare Urine Crystals (Negative) HPF Negative Urine Bacteria (Negative) HPF Negative Urine Casts (Negative) LPF Negative Urine Mucus (Negative) Negative Urine Other (Negative) Negative Ur Culture Indicated? Yes Urine Glucose (Negative) mg/dL Negative ECG Data Attestation: I personally reviewed and interpreted this ECG (s) as follows: Interpretation: EKG shows atrial fibrillation at 101, incomplete left bundle branch block, normal axis, no STEMI, nondiagnostic EKG HPI General Mode of arrival: ambulatory . Date/Time Provider Initiated Documentation: 11/10/19 13:20 . Limitations to Documentation: no limitations . Information obtained by: patient, RN notes reviewed and old records reviewed . HPI Narrative: Chandni Lopez is a 79-year-old woman with a history of GERD, lupus, atrial fibrillation on Coumadin, hyperlipidemia, hypertension presenting to the emergency department with fatigue, shortness of breath. Patient reports that 2 days ago she began feeling much more tired than usual. She also began feeling short of breath when walking in her home. Symptoms have persisted through today, patient also had several episodes of vomiting yesterday. No vomiting today. Patient reports that she has never had shortness of breath while at rest. She denies swelling of her lower extremities beyond baseline. Patient denies chest pain or any other pain, fevers, diarrhea, rash, numbness, weakness. She reports mild nonproductive cough upon review of systems. Has been eating and drinking as usual. No other recent illness, no recent travel. Related Data Home Medications Medication Instructions Recorded Confirmed Savella 50 mg PO BID 11/24/17 11/10/19 hydroxychloroquine 200 mg PO DAILY 11/24/17 11/10/19 pantoprazole [Protonix] 40 mg PO DAILY 11/24/17 11/10/19 tramadol [Ultram] 50 mg PO BID 11/24/17 11/10/19 atorvastatin [Lipitor] 20 mg DAILY 05/17/19 11/10/19 cholecalciferol (vitamin D3) 1,000 unit PO DAILY 08/26/19 11/10/19 [Vitamin D3] multivitamin with minerals 1 tab PO DAILY 08/26/19 08/27/19 [Multiple Vitamin-Minerals] polyethylene glycol 3350 [Miralax] 17 g PO DAILY 08/26/19 11/10/19 amiodarone [Pacerone] 200 mg PO DAILY #0 tab 11/14/19 11/10/19 amitriptyline 50 mg PO DAILY #0 tab 11/14/19 11/10/19 aspirin 81 mg PO DAILY #30 tab 11/14/19 furosemide 40 mg PO BID #0 tab 11/14/19 11/10/19 hydralazine 10 mg PO TID #0 tab 11/14/19 11/10/19 loratadine 10 mg PO DAILY PRN PRN #0 tab 11/14/19 metoprolol tartrate 50 mg PO DAILY #0 tab 11/14/19 11/10/19 nitroglycerin 0.4 mg SL Q5-15M PRN #20 tab 11/14/19 warfarin 5 - 25 mg PO DAILY #0 tab 11/14/19 11/10/19 Previous Rx's Medication Instructions Recorded amiodarone [Pacerone] 200 mg PO DAILY #0 tab 11/14/19 amitriptyline 50 mg PO DAILY #0 tab 11/14/19 aspirin 81 mg PO DAILY #30 tab 11/14/19 furosemide 40 mg PO BID #0 tab 11/14/19 hydralazine 10 mg PO TID #0 tab 11/14/19 loratadine 10 mg PO DAILY PRN PRN #0 tab 11/14/19 metoprolol tartrate 50 mg PO DAILY #0 tab 11/14/19 nitroglycerin 0.4 mg SL Q5-15M PRN #20 tab 11/14/19 warfarin 5 - 25 mg PO DAILY #0 tab 11/14/19 Allergies Allergy/AdvReac Type Severity Reaction Status Date / Time Sulfa (Sulfonamide Allergy Unverified 11/10/19 13:51 Antibiotics) cat scan dye AdvReac Uncoded 11/10/19 13:51 General Stated Complaint: GenMedical COURT: 3 Review of Systems Narrative: Constitutional: denies fevers Eyes: denies eye pain ENT: denies ear pain, dental pain, sore throat Cardiovascular: denies chest pain, reports lower extremity edema at baseline Respiratory: Reports dyspnea on exertion, mild cough GI: denies abdominal pain, diarrhea, reports vomiting yesterday : denies flank pain MSK: denies back pain, neck pain, arthralgias, myalgias Skin: denies rash Neuro: denies headaches, numbness, weakness PFSH Medical History Atrial fibrillation (Chronic) Depression (Chronic) Diverticulosis of colon (Acute) Fibromyalgia (Acute) Gastroesophageal reflux (Chronic) History of tobacco use (Acute) Hydronephrosis (Acute) Hyperlipidemia (Acute) Hypertension (Chronic) Intestinal adhesions (Acute) Respiratory infection (Acute) Systemic lupus erythematosus (Chronic) Surgical History History of hysterectomy (Chronic) History of partial colectomy (Acute) partial bowel resection-colectomy with colosotmy ad reversal, abdominal adhesions History of surgical removal of ganglion cyst (Acute) both wrists History of tonsillectomy and adenoidectomy (Acute) Hx of bilateral cataract extraction (Acute) Hx of section (Chronic) Hx of knee surgery (Acute) S/p bilateral carpal tunnel release (Acute) Social History Smoking/Tobacco Use Status: Former Tobacco Use Alcohol Intake: current Alcohol Intake frequency: holidays/special occasions only Drug use: Never Substance use type: does not use Details: quit smoking in 2006 for second time Do you feel safe at home: Yes Do you feel safe in your relationship?: Yes Exam Narrative Exam Narrative: Constitutional: well and [id number], pleasant, conversing normally HENT: head atraumatic/normocephalic/normal inspection, mucous membranes moist Eyes: conjunctiva normal, sclera normal, pupils 3mm b/l Neck: no stridor, normal ROM, trachea midline Chest: normal inspection Resp: normal work of breathing, LCTAB Cardio: Rate 90-105, irregularly irregular rhythm, no murmur appreciated GI: abdomen soft, non-tender, non-distended Back: normal inspection, no rash Skin: warm, dry, normal color, no rash Neuro: alert, not altered, grossly non-focal, normal tone Ext: +1 edema bilateral lower legs, no posterior calf tenderness to palpation Psych: normal mood, normal affect, normal behavior Course Vital Signs Vital signs: Vital Signs Temperature 36.4 C L 11/10/19 13:09 Pulse 84 11/10/19 13:09 Respiratory Rate 20 11/10/19 13:09 Blood Pressure 162/89 H 11/10/19 13:09 Pulse Oximetry 97 11/10/19 13:09 Temperature 36.4 C L 11/10/19 13:09 Temperature Source Skin 11/10/19 13:09 Pulse 109 H 11/10/19 14:05 Pulse 95 H 11/10/19 14:10 Respiratory Rate 24 11/10/19 14:10 Respiratory Effort 11/10/19 13:34 Blood Pressure 148/87 H 11/10/19 14:05 Blood Pressure Mean 100 11/10/19 14:05 Pulse Oximetry 96 11/10/19 14:10 Oxygen Delivery Method Room Air 11/10/19 13:09 Oxygen Flow Rate 0 11/10/19 13:09 Pain Level 0 11/10/19 13:09 Lab/Test Results Lab/Test Results: 11/10/19 13:30 Nasopharynx Influenza Types A,B Antigen - Final Laboratory Tests Range/Units 11/10/19 11/10/19 11/10/19 13:26 13:26 13:54 Sodium (136-145) mmol/L 139 Potassium (3.5-5.1) mmol/L 4.0 Chloride (98-107) mmol/L 103 Carbon Dioxide (21.0-32.0) mmol/L 26.5 Anion Gap (3-11) mmol/L 9.5 BUN (7-18) mg/dL 23 H Creatinine (0.55-1.02) mg/dL 1.25 H Estimated GFR/1.73 m2 (mL/min/1.73m2) 41.45 Glucose (74-106) mg/dL 98 Lactate (0.6-1.4) mmol/L 1.2 Calcium (8.5-10.1) mg/dL 9.0 Total Bilirubin (0.2-1.0) mg/dL 1.5 H AST (15-37) U/L 37 ALT (14-59) U/L 24 Alkaline Phosphatase (46-116) U/L 80 Troponin I (<0.06) ng/Ml 0.61 H* NT-Pro-B Natriuret Pep (<300) pg/mL 4428 H Total Protein (6.4-8.2) g/dL 7.0 Albumin (3.4-5.0) g/dL 3.4
--- NOTE | 2019-11-10 14:48 | DI.RAD_ITS ---
EXAM: XR PORTABLE CHEST AP INDICATION: SOB. COMPARISON: XR ribs LT w PA lat chest from 05/17/2019 TECHNIQUE: 2D digital imaging was performed. FINDINGS: The heart appears enlarged. There is prominence of the pulmonary vasculature. There is atherosclero sis of the thoracic aorta. Indistinct interstitial infiltrates are seen predominantly on the right. No focal consolidating infiltrate is present. No gross effusions or pneumothoraces are identified. IMPRESSION: 1. Mild cardiomegaly and indistinct pulmonary vasculature suspicious for pulmonary edema. 2. Ill-defined interstitial infiltrates predominantly on the right.
[2019-11-10 15:17] LABS: TSH (W/Ref FT4) 1.07 uIU/mL (0.36-3.74)
[2019-11-10] MEDS: Furosemide 40 MG/4 ML VIAL IVP (15:18)
[2019-11-10 15:27] LABS: Bilirubin Negative (Negative); Blood Trace-intact (Negative); Clarity Clear (Clear); Glucose Negative (Negative); Ketones Negative (Negative); Leukocyte Esterase Trace (Negative); Nitrite Negative (Negative); Specific Gravity 1.015 (1.005-1.025); Urobilinogen 0.2 EU/dL (Up TO 0.2)
[2019-11-10 15:36] LABS: Bacteria Negative HPF (Negative); C & S Indicated? Yes; Casts Negative LPF (Negative); Crystals Negative HPF (Negative); Epithelial Cells Rare HPF (Negative); Mucus Negative (Negative); Other Cells Negative (Negative); RBC Negative HPF (0-2)
[2019-11-10 16:38] LABS: Troponin I 0.52 ng/Ml (<0.06)
[2019-11-10] MEDS: cefTRIAXone 1 GM/50 ML BAG IVPB (17:09)
[2019-11-10] MEDS: Doxycycline Hyclate 100 MG CAP PO (17:09)
[2019-11-10 17:37] LABS: INR 2.4 (0.9-1.1); Prothrombin Time 23.8 sec (9.3-11.0)
--- NOTE | 2019-11-10 17:53 | HPE_ITS ---
Date of service: 11/10/19 Time of Service: 17:53 Assessment and Plan Assessment and plan (1) Shortness of breath: Status: Acute Assessment and plan: SOB. Based on film, increased BNP, slight elevation Troponin, and absence of fever or leukocytosis -- I think think this is more exacerbation of CHF, though could be an element of pneumonia. I wonder if the troponin might represent the tail end off ACS event few days ago? At any rate has received antibiotic coverage and Lasix. Will hold on further antibiotics for now and monitor respnse to diuresis. Will trend troponins and get ECHO. As to AF will resume beta shiv and Amiodarone. Otherwise resume usual meds as is. History of Present Illness History of Present Illness Chief Complaint: SOB Narrative: 79 female with h/o AF, CHF, reports 2-3 days of increasing SOB. No CP. Has baseline orthopnea which is unchanged. Has baseline slight non-specific cough, which is unchanged. In ER findings of note for CXR CHF vs pneumonia, BNP >4000 and troponin x 2 borderline 0.6 (with baseline negative). Given Roceephin, Doxy and Lasix, admitted for further management. Note that monitor lucila been frequently alarrming for V-tach. but this is AF with aberrancy. Note that she has not taken any of her meds for two days, which could certainly be playing a role in the elevated BP (and relatively increased pulse). Review of Systems All systems reviewed & are unremarkable except as noted in HPI and below PFSH Medical History Atrial fibrillation (Chronic) Depression (Chronic) Diverticulosis of colon (Acute) Fibromyalgia (Acute) Gastroesophageal reflux (Chronic) History of tobacco use (Acute) Hydronephrosis (Acute) Hyperlipidemia (Acute) Hypertension (Chronic) Intestinal adhesions (Acute) Respiratory infection (Acute) Systemic lupus erythematosus (Chronic) Surgical History History of hysterectomy (Chronic) History of partial colectomy (Acute) partial bowel resection-colectomy with colosotmy ad reversal, abdominal adhesions History of surgical removal of ganglion cyst (Acute) both wrists History of tonsillectomy and adenoidectomy (Acute) Hx of bilateral cataract extraction (Acute) Hx of section (Chronic) Hx of knee surgery (Acute) S/p bilateral carpal tunnel release (Acute) Social History Smoking/Tobacco Use Status: Former Tobacco Use Alcohol Intake: current Alcohol Intake frequency: holidays/special occasions only Drug use: Never Substance use type: does not use Details: quit smoking in 2006 for second time Do you feel safe at home: Yes Do you feel safe in your relationship?: Yes Meds Home Medications and Allergies Home Medications Medication Instructions Recorded Confirmed Type Savella 50 mg PO BID 11/24/17 11/10/19 History amitriptyline 50 mg PO HS PRN PRN 11/24/17 08/27/19 History hydroxychloroquine 200 mg PO DAILY 11/24/17 11/10/19 History pantoprazole [Protonix] 40 mg PO DAILY 11/24/17 11/10/19 History tramadol [Ultram] 50 mg PO BID 11/24/17 11/10/19 History albuterol sulfate 2.5 mg PRN 05/17/19 History amiodarone [Pacerone] 200 mg DAILY 05/17/19 11/10/19 History amitriptyline 50 mg DAILY 05/17/19 11/10/19 History atorvastatin [Lipitor] 20 mg DAILY 05/17/19 11/10/19 History furosemide 40 mg DAILY 05/17/19 11/10/19 History hydralazine 10 mg DAILY 05/17/19 11/10/19 History loratadine 10 mg 05/17/19 History metoprolol tartrate 50 mg DAILY 05/17/19 11/10/19 History warfarin 5 - 25 mg DAILY 05/17/19 11/10/19 History albuterol sulfate INHALATION 08/26/19 History cholecalciferol (vitamin D3) 1,000 unit PO DAILY 08/26/19 11/10/19 History [Vitamin D3] esomeprazole magnesium 40 mg PO DAILY 08/26/19 11/10/19 History multivitamin with minerals 1 tab PO DAILY 08/26/19 08/27/19 History [Multiple Vitamin-Minerals] polyethylene glycol 3350 [Miralax] 17 g PO DAILY 08/26/19 11/10/19 History Allergies Allergy/AdvReac Type Severity Reaction Status Date / Time Sulfa (Sulfonamide Allergy Unverified 11/10/19 13:51 Antibiotics) cat scan dye AdvReac Uncoded 11/10/19 13:51 Exam Narrative Exam Narrative: 167/112, 94, 19, 36.4, 95%. HEENT AT/NC; neck JVP approximately 10 cm; lungs diminished but clear; heart somewhat distant but irr/irr; abdomen soft and NT; extremities 1+ pedal edema; neuro Ox3, non-focal Results Labs Result diagrams: 11/10/19 13:26 11/10/19 13:26 Labs: Laboratory Results - last 24 hr 11/10/19 11/10/19 11/10/19 13:26 13:26 13:26 WBC 8.97 RBC 3.66 L Hgb 11.0 L Hct 34.4 L MCV 94.0 MCH 30.1 MCHC 32.0 RDW 13.6 Plt Count 268 MPV 9.8 Immature Gran % 0.1 Neutrophils % 79.4 Lymphocytes % 10.4 Monocytes % 9.7 Eosinophils % 0.3 Basophils % 0.1 Absolute Neutrophils 7.12 H Absolute Lymphocytes 0.93 L Absolute Monocytes 0.87 H Absolute Eosinophils 0.03 Absolute Basophils 0.01 PT INR Sodium 139 Potassium 4.0 Chloride 103 Carbon Dioxide 26.5 Anion Gap 9.5 BUN 23 H Creatinine 1.25 H Estimated GFR/1.73 m2 41.45 Glucose 98 Lactate Calcium 9.0 Total Bilirubin 1.5 H AST 37 ALT 24 Alkaline Phosphatase 80 Troponin I 0.61 H* NT-Pro-B Natriuret Pep 4428 H Total Protein 7.0 Albumin 3.4 TSH Urine Color Urine Clarity Urine pH Ur Specific [place] Urine Protein Urine Ketones Urine Blood Urine Nitrite Urine Bilirubin Urine Urobilinogen Ur Leukocyte Esterase Urine RBC Urine WBC Ur Epithelial Cells Urine Crystals Urine Bacteria Urine Casts Urine Mucus Urine Other Ur Culture Indicated? Urine Glucose 11/10/19 11/10/19 11/10/19 13:26 13:26 13:54 WBC RBC Hgb Hct MCV MCH MCHC RDW Plt Count MPV Immature Gran % Neutrophils % Lymphocytes % Monocytes % Eosinophils % Basophils % Absolute Neutrophils Absolute Lymphocytes Absolute Monocytes Absolute Eosinophils Absolute Basophils PT 23.8 H INR 2.4 H Sodium Potassium Chloride Carbon Dioxide Anion Gap BUN Creatinine Estimated GFR/1.73 m2 Glucose Lactate 1.2 Calcium Total Bilirubin AST ALT Alkaline Phosphatase Troponin I NT-Pro-B Natriuret Pep Total Protein Albumin TSH 1.07 Urine Color Urine Clarity Urine pH Ur Specific [place] Urine Protein Urine Ketones Urine Blood Urine Nitrite Urine Bilirubin Urine Urobilinogen Ur Leukocyte Esterase Urine RBC Urine WBC Ur Epithelial Cells Urine Crystals Urine Bacteria Urine Casts Urine Mucus Urine Other Ur Culture Indicated? Urine Glucose 11/10/19 11/10/19 15:12 16:15 WBC RBC Hgb Hct MCV MCH MCHC RDW Plt Count MPV Immature Gran % Neutrophils % Lymphocytes % Monocytes % Eosinophils % Basophils % Absolute Neutrophils Absolute Lymphocytes Absolute Monocytes Absolute Eosinophils Absolute Basophils PT INR Sodium Potassium Chloride Carbon Dioxide Anion Gap BUN Creatinine Estimated GFR/1.73 m2 Glucose Lactate Calcium Total Bilirubin AST ALT Alkaline Phosphatase Troponin I 0.52 H* NT-Pro-B Natriuret Pep Total Protein Albumin TSH Urine Color Yellow Urine Clarity Clear Urine pH 6.0 Ur Specific [place] 1.015 Urine Protein Trace H Urine Ketones Negative Urine Blood Trace-intact H Urine Nitrite Negative Urine Bilirubin Negative Urine Urobilinogen 0.2 Ur Leukocyte Esterase Trace H Urine RBC Negative Urine WBC 5-10 Ur Epithelial Cells Rare Urine Crystals Negative Urine Bacteria Negative Urine Casts Negative Urine Mucus Negative Urine Other Negative Ur Culture Indicated? Yes Urine Glucose Negative Last Vital Signs Temp 36.4 C L 11/10/19 13:09 Pulse 94 H 11/10/19 17:46 Resp 19 11/10/19 17:46 BP 167/112 H 11/10/19 17:46 Pulse Ox 95 11/10/19 15:46
[2019-11-10] MEDS: Metoprolol 25 MG TAB PO ×2 (18:23→20:19)
[2019-11-10] MEDS: traMADol 50 MG TAB PO (20:19)
[2019-11-10] MEDS: Amitriptyline 50 MG TAB PO (21:06)
[2019-11-10] MEDS: Atorvastatin 20 MG TAB PO (21:07)
[2019-11-10] MEDS: Melatonin 3 MG TAB PO (21:07)
[2019-11-10 22:34] LABS: Troponin I 0.37 ng/Ml (<0.06)
[2019-11-11] VITALS (44 sets, daily range): BP systolic 87–151; BP diastolic 36–97; PULSE 51–74; RESP 11–23; TEMP 36.2–37.1; O2SAT 89–99
[2019-11-11 06:50] LABS: INR 2.4 (0.9-1.1); Prothrombin Time 23.4 sec (9.3-11.0)
[2019-11-11] MEDS: Aspirin 325 MG TAB PO (06:51)
--- NOTE | 2019-11-11 08:42 | W.PM.PROGNOT ---
Date of Service Date of service: 11/11/19 Time of Service: 15:31 Assessment and Plan Assessment and plan (1) NSTEMI (non-ST elevated myocardial infarction): Status: Acute Assessment and plan: Likely the precipitant of heart failure rather than the other way around. Appreciate cardiology assistance. Will continue asa, statin, check lipids, diurese. Parodoxycal wall motion seen on echo - could be due to intermittent LBBB. Will need ischemic workup - anticipate that this would be a stress test as outpatient. Continue to monitor in ICU overnight. (2) Acute diastolic CHF (congestive heart failure): Status: Acute Assessment and plan: As above - diuresing gently. Monitor on tele to ensure that the reason that the patient went into CHF is not rapid Afib. Monitor I/O's and daily weights. (3) Paroxysmal atrial fibrillation: Status: Acute Assessment and plan: Presently in NSR. Continue amiodarone, coumadin. Monitor daily INR. Could be potential reason why the patient went into CHF - continue cardiac monitoring. (4) Hyperlipidemia: Status: Acute Assessment and plan: Continue statin. Check fasting lipid panel. (5) DVT prophylaxis: Status: Acute Assessment and plan: Thearpeutic on coumadin (6) Discharge planning issues: Status: Acute Assessment and plan: DNR/DNI. Anticipate being able to transfer out of ICU tomorrow Subjective Subjective Interval history since last seen: Feels dizzy when she tries to get up. Still feels very SANCHEZ. States she cannot lay flat - gets short of breath. Denies chest pain, nausea. Remains in sinus rhythm. RA - 93%. Afebrile. Seen by cardiology: it is felt that the patient likely had an NSTEMI that resulted in CHF rather than CHF causing type-II NSTEMI. The patient is recommended to undergo stress testing when euvolemic - the plan is to do this as outpatient. Exam Narrative Exam Narrative: General: Very pleasant elderly female, laying in bed at about 45 degree angle, no dyspnea observed HEENT: EOMI, MMM Heart: RRR, no m/r/g Lungs: coarse breath sounds B, but no obvious crackles Abdomen: soft, nontender, nondistended Extremities: +1 BLE edema Objective Objective Clinical Data: Abnormal lab results 11/10/19 11/10/19 11/10/19 Range/Units 13:26 13:26 13:26 RBC 3.66 L (4.00-5.20) m/cumm Hgb 11.0 L (12.0-15.5) g/dL Hct 34.4 L (36.0-46.0) % Absolute Neutrophils 7.12 H (1.2-6.7) k/cumm Absolute Lymphocytes 0.93 L (1.2-3.4) k/cumm Absolute Monocytes 0.87 H (0.11-0.7) k/cumm PT (9.3-11.0) sec INR (0.9-1.1) BUN 23 H (7-18) mg/dL Creatinine 1.25 H (0.55-1.02) mg/dL Total Bilirubin 1.5 H (0.2-1.0) mg/dL Troponin I 0.61 H* (<0.06) ng/Ml NT-Pro-B Natriuret Pep 4428 H (<300) pg/mL Urine Protein (Negative) mg/dL Urine Blood (Negative) Ur Leukocyte Esterase (Negative) 11/10/19 11/10/19 11/10/19 Range/Units 13:26 15:12 16:15 RBC (4.00-5.20) m/cumm Hgb (12.0-15.5) g/dL Hct (36.0-46.0) % Absolute Neutrophils (1.2-6.7) k/cumm Absolute Lymphocytes (1.2-3.4) k/cumm Absolute Monocytes (0.11-0.7) k/cumm PT 23.8 H (9.3-11.0) sec INR 2.4 H (0.9-1.1) BUN (7-18) mg/dL Creatinine (0.55-1.02) mg/dL Total Bilirubin (0.2-1.0) mg/dL Troponin I 0.52 H* (<0.06) ng/Ml NT-Pro-B Natriuret Pep (<300) pg/mL Urine Protein Trace H (Negative) mg/dL Urine Blood Trace-intact H (Negative) Ur Leukocyte Esterase Trace H (Negative) 11/10/19 11/11/19 11/11/19 Range/Units 22:10 06:20 06:20 RBC (4.00-5.20) m/cumm Hgb (12.0-15.5) g/dL Hct (36.0-46.0) % Absolute Neutrophils (1.2-6.7) k/cumm Absolute Lymphocytes (1.2-3.4) k/cumm Absolute Monocytes (0.11-0.7) k/cumm PT 23.4 H (9.3-11.0) sec INR 2.4 H (0.9-1.1) BUN (7-18) mg/dL Creatinine (0.55-1.02) mg/dL Total Bilirubin (0.2-1.0) mg/dL Troponin I 0.37 H* 0.20 H* (<0.06) ng/Ml NT-Pro-B Natriuret Pep (<300) pg/mL Urine Protein (Negative) mg/dL Urine Blood (Negative) Ur Leukocyte Esterase (Negative) Vital Signs Temperature 36.6 C 11/11/19 08:21 Temperature Source Temporal Artery Scan 11/11/19 08:21 Pulse 64 11/11/19 08:24 Pulse 55 L 11/11/19 06:01 Respiratory Rate 12 11/11/19 08:24 Respiratory Effort Non-Labored 11/11/19 03:05 Respiratory Depth Normal 11/11/19 03:05 Respiratory Pattern Normal 11/11/19 03:05 Blood Pressure 137/48 L 11/11/19 08:21 Blood Pressure Mean 71 11/11/19 06:01 Blood Pressure Position Supine 11/11/19 03:05 Pulse Oximetry 96 11/11/19 08:24 Oxygen Delivery Method Room Air 11/11/19 08:24 Oxygen Flow Rate 0 11/11/19 08:24 Pain Level 0 11/11/19 08:21 Intake & Output 11/10/19 11/10/19 11/11/19 11:59 23:59 11:59 Intake Total 520 / 520 Output Total 900 / 900 Balance -380 / -380 Weight 100.8 kg Intake: IV 320 / 320 Oral 200 / 200 Output: Urine 900 / 900 Other: Urine Color Pale Yellow Urine Appearance Clear Urine Odor Normal Voiding Methods Bedside Commode Laboratory Results WBC 8.97 k/cumm (4.4-10.8) 11/10/19 13:26 RBC 3.66 m/cumm (4.00-5.20) L 11/10/19 13:26 Hgb 11.0 g/dL (12.0-15.5) L 11/10/19 13:26 Hct 34.4 % (36.0-46.0) L 11/10/19 13:26 MCV 94.0 fL (80-95) 11/10/19 13:26 MCH 30.1 pg (27.0-33.0) 11/10/19 13:26 MCHC 32.0 g/dL (32.0-36.0) 11/10/19 13:26 RDW 13.6 % (11.7-14.6) 11/10/19 13:26 Plt Count 268 x1000/uL (130-400) 11/10/19 13:26 MPV 9.8 fL (8.0-11.0) 11/10/19 13:26 Immature Gran % 0.1 % 11/10/19 13:26 Neutrophils % 79.4 11/10/19 13:26 Lymphocytes % 10.4 11/10/19 13:26 Monocytes % 9.7 11/10/19 13:26 Eosinophils % 0.3 11/10/19 13:26 Basophils % 0.1 11/10/19 13:26 Absolute Neutrophils 7.12 k/cumm (1.2-6.7) H 11/10/19 13:26 Absolute Lymphocytes 0.93 k/cumm (1.2-3.4) L 11/10/19 13:26 Absolute Monocytes 0.87 k/cumm (0.11-0.7) H 11/10/19 13:26 Absolute Eosinophils 0.03 k/cumm (0.0-0.7) 11/10/19 13:26 Absolute Basophils 0.01 k/cumm (0.0-0.2) 11/10/19 13:26 PT 23.4 sec (9.3-11.0) H 11/11/19 06:20 INR 2.4 (0.9-1.1) H 11/11/19 06:20 Sodium 139 mmol/L (136-145) 11/10/19 13:26 Potassium 4.0 mmol/L (3.5-5.1) 11/10/19 13:26 Chloride 103 mmol/L (98-107) 11/10/19 13:26 Carbon Dioxide 26.5 mmol/L (21.0-32.0) 11/10/19 13:26 Anion Gap 9.5 mmol/L (3-11) 11/10/19 13:26 BUN 23 mg/dL (7-18) H 11/10/19 13:26 Creatinine 1.25 mg/dL (0.55-1.02) H 11/10/19 13:26 Estimated GFR/1.73 m2 41.45 (mL/min/1.73m2) 11/10/19 13:26 Glucose 98 mg/dL (74-106) 11/10/19 13:26 Lactate 1.2 mmol/L (0.6-1.4) 11/10/19 13:54 Calcium 9.0 mg/dL (8.5-10.1) 11/10/19 13:26 Total Bilirubin 1.5 mg/dL (0.2-1.0) H 11/10/19 13:26 AST 37 U/L (15-37) 11/10/19 13:26 ALT 24 U/L (14-59) 11/10/19 13:26 Alkaline Phosphatase 80 U/L (46-116) 11/10/19 13:26 Troponin I 0.20 ng/Ml (<0.06) H* 11/11/19 06:20 NT-Pro-B Natriuret Pep 4428 pg/mL (<300) H 11/10/19 13:26 Total Protein 7.0 g/dL (6.4-8.2) 11/10/19 13:26 Albumin 3.4 g/dL (3.4-5.0) 11/10/19 13:26 TSH 1.07 uIU/mL (0.36-3.74) 11/10/19 13:26 Urine Color Yellow (Yellow) 11/10/19 15:12 Urine Clarity Clear (Clear) 11/10/19 15:12 Urine pH 6.0 (5-8) 11/10/19 15:12 Ur Specific [place] 1.015 (1.005-1.025) 11/10/19 15:12 Urine Protein Trace mg/dL (Negative) H 11/10/19 15:12 Urine Ketones Negative mg/dL (Negative) 11/10/19 15:12 Urine Blood Trace-intact (Negative) H 11/10/19 15:12 Urine Nitrite Negative (Negative) 11/10/19 15:12 Urine Bilirubin Negative (Negative) 11/10/19 15:12 Urine Urobilinogen 0.2 EU/dL (Up TO 0.2) 11/10/19 15:12 Ur Leukocyte Esterase Trace (Negative) H 11/10/19 15:12 Urine RBC Negative HPF (0-2) 11/10/19 15:12 Urine WBC 5-10 HPF (0-5) 11/10/19 15:12 Ur Epithelial Cells Rare HPF (Negative) 11/10/19 15:12 Urine Crystals Negative HPF (Negative) 11/10/19 15:12 Urine Bacteria Negative HPF (Negative) 11/10/19 15:12 Urine Casts Negative LPF (Negative) 11/10/19 15:12 Urine Mucus Negative (Negative) 11/10/19 15:12 Urine Other Negative (Negative) 11/10/19 15:12 Ur Culture Indicated? Yes 11/10/19 15:12 Urine Glucose Negative mg/dL (Negative) 11/10/19 15:12 Echo: Left Ventricle : The left ventricle is normal size. The left ventricular ejection fraction is within the normal range. Mild left ventricular hypertrophy. There is normal LV segmental wall motion but there is paradoxical septal motion. Diastolic function is indeterminate but there is evidence of elevated filling pressures. LVEF is estimated to be 55-60%. Right Ventricle : Right ventricle is mildly dilated. The right ventricular systolic function appears normal. Atria : Left atrium is mild to moderately dilated. Right atrium is mildly dilated. Aortic Valve : Aortic valve is thickened but has adequate excursion. There is no hemodynamically significant aortic stenosis. Trace aortic regurgitation. Mitral Valve : The mitral valve is mildly thickened. Moderate mitral regurgitation. No evidence of mitral valve stenosis. Great Vessels : The IVC is dilated, but collapses >50% with inspiration. Estimated RVSP is 33-41 mmHg. Compared to echocardiogram dated 09/29/2018: There is no significant change.
[2019-11-11] MEDS: Amiodarone 200 MG TAB PO (08:55)
[2019-11-11] MEDS: Cholecalciferol (Vitamin D3) 1,000 UNIT TAB 1000 UNITS PO (08:55)
[2019-11-11] MEDS: Esomeprazole 40 MG CAPCR PO (08:55)
[2019-11-11] MEDS: Furosemide 40 MG TAB PO ×2 (08:55→16:16)
[2019-11-11] MEDS: hydrALAZINE 10 MG TAB PO ×3 (08:55→20:01)
[2019-11-11] MEDS: Metoprolol 25 MG TAB PO ×2 (08:56→20:01)
[2019-11-11] MEDS: Polyethylene Glycol 3350 17 GM PACKET PO (08:56)
[2019-11-11] MEDS: traMADol 50 MG TAB PO ×2 (08:56→20:01)
[2019-11-11] MEDS: Hydroxychloroquine 200 MG TAB PO (08:56)
[2019-11-11 09:46] LABS: Magnesium 2.1 mg/dL (1.8-2.4)
--- NOTE | 2019-11-11 10:21 | W.CARDCONSUL ---
Date of service: 11/11/19 Time of Service: 10:21 Assessment and Plan Assessment and plan (1) Shortness of breath: Status: Acute Assessment and plan: 1. Shortness of breath: The patient is clearly in a heart failure exacerbation but it is hard to determine whether or not this is secondary to an ACS event or her elevation in troponin is secondary to her heart failure. It certainly is possible that she had an event a few days ago and were just catching the tail end of her decreasing troponin. Her ACS event could have been what led her to have an exacerbation of heart failure. She could have also had an episode of atrial fibrillation with RVR that tipped her over into heart failure. It seems as though that her symptoms predated to her stopping her medication entirely which would favor this as a type I non-STEMI as opposed to a type II non-STEMI. She is likely fluid overloaded due to not taking her medications. In looking back at her records at [facility], her creatinine is often in the 1.3-1.5 range. A creatinine of 1.25 here today does not support that she has been in heart failure for a long period of time. The patient has also had 2 stress tests in the past few years. The most recent was in November 2018 which was a nuclear stress test. This did not show any ischemia. She states that she had a heart catheterization many years ago without intervention but unfortunately we do not have the records the go back that far at [facility]. Her last echocardiogram was done in 2018 which showed normal filling pressures and normal ejection fraction. ?Continue gentle diuresis. Patient thinks that her baseline weight is somewhere around 220 pounds and she is pretty close to that at this point. ?We discussed whether or not she would like to go down to [facility] to have a catheterization and she would prefer to stay up here at this point if possible. ?I think it is reasonable to watch her and treat her for her heart failure symptoms with a plan of an ischemic evaluation as outpatient in the next few weeks. ?If patient should develop chest pain or worsening of symptoms I would consider a more emergent transfer down to [facility] for catheterization. ?Echocardiogram during this admission ?At this point I would not load with aspirin and Plavix the patient should be on a baby aspirin unless there is a contraindication. ?Repeat lipid panel to determine whether or not she needs to increase her statin dose. 2. Paroxysmal atrial fibrillation, patient is in normal sinus rhythm currently. ?Continue amiodarone and warfarin. Please contact cardiology with any future questions or concerns. History of Present Illness History of Present Illness Chief Complaint: SOB Narrative: Ms. Lopez is a very pleasant 79-year-old female with past medical history significant for paroxysmal atrial fibrillation (on amiodarone and warfarin), combined systolic and diastolic heart failure as well as hypertension who was admitted for shortness of breath. The patient states that her late last week she went out shopping and came home very very tired from that. She said she then got into bed 3 days ago and did not leave bed except to go to the bathroom due to profound fatigue and shortness of breath. She says she did not take any of her medications at that time because it did not occur to her. She denies chest pain or any significant chest discomfort. She has baseline shortness of breath and her shortness of breath gradually worsened over this time. She said that even thinking back a few days ago she was noticing increased shortness of breath. She says despite not eating and just laying in bed she gained 5 or 6 pounds. She was evaluated in the emergency room where she was found to have an elevated troponin as well as an elevated BNP and signs of congestive heart failure. She was brought into the hospital where her troponins trended down and she began diuresis. She says she feels a little bit better since starting that but clearly still has a ways to go. She currently denies lightheadedness or dizziness. She still has shortness of breath which is getting closer to her baseline. She has a small amount of lower extremity edema which is baseline for her. She is followed by cardiology at [facility] by Dr. Suero. Review of Systems All systems reviewed & are unremarkable except as noted in HPI and below FOR[facility]LY [facility] Medical History Atrial fibrillation (Chronic) Depression (Chronic) Diverticulosis of colon (Acute) Fibromyalgia (Acute) Gastroesophageal reflux (Chronic) History of tobacco use (Acute) Hydronephrosis (Acute) Hyperlipidemia (Acute) Hypertension (Chronic) Intestinal adhesions (Acute) Respiratory infection (Acute) Systemic lupus erythematosus (Chronic) Surgical History History of hysterectomy (Chronic) History of partial colectomy (Acute) partial bowel resection-colectomy with colosotmy ad reversal, abdominal adhesions History of surgical removal of ganglion cyst (Acute) both wrists History of tonsillectomy and adenoidectomy (Acute) Hx of bilateral cataract extraction (Acute) Hx of section (Chronic) Hx of knee surgery (Acute) S/p bilateral carpal tunnel release (Acute) Social History Smoking/Tobacco Use Status: Former Tobacco Use Alcohol Intake: current Alcohol Intake frequency: holidays/special occasions only Drug use: Never Substance use type: does not use Details: quit smoking in 2006 for second time Do you feel safe at home: Yes Do you feel safe in your relationship?: Yes Results Last Vital Signs Temp 36.6 C 11/11/19 08:56 Pulse 64 11/11/19 08:24 Resp 12 11/11/19 08:24 BP 137/48 L 11/11/19 08:21 Pulse Ox 96 11/11/19 08:24 Labs Result diagrams: 11/10/19 13:26 11/10/19 13:26 Labs: Laboratory Results - last 24 hr 11/10/19 11/10/19 11/10/19 13:26 13:26 13:26 WBC 8.97 RBC 3.66 L Hgb 11.0 L Hct 34.4 L MCV 94.0 MCH 30.1 MCHC 32.0 RDW 13.6 Plt Count 268 MPV 9.8 Immature Gran % 0.1 Neutrophils % 79.4 Lymphocytes % 10.4 Monocytes % 9.7 Eosinophils % 0.3 Basophils % 0.1 Absolute Neutrophils 7.12 H Absolute Lymphocytes 0.93 L Absolute Monocytes 0.87 H Absolute Eosinophils 0.03 Absolute Basophils 0.01 PT INR Sodium 139 Potassium 4.0 Chloride 103 Carbon Dioxide 26.5 Anion Gap 9.5 BUN 23 H Creatinine 1.25 H Estimated GFR/1.73 m2 41.45 Glucose 98 Lactate Calcium 9.0 Magnesium Total Bilirubin 1.5 H AST 37 ALT 24 Alkaline Phosphatase 80 Troponin I 0.61 H* NT-Pro-B Natriuret Pep 4428 H Total Protein 7.0 Albumin 3.4 TSH Urine Color Urine Clarity Urine pH Ur Specific [place] Urine Protein Urine Ketones Urine Blood Urine Nitrite Urine Bilirubin Urine Urobilinogen Ur Leukocyte Esterase Urine RBC Urine WBC Ur Epithelial Cells Urine Crystals Urine Bacteria Urine Casts Urine Mucus Urine Other Ur Culture Indicated? Urine Glucose 11/10/19 11/10/19 11/10/19 13:26 13:26 13:54 WBC RBC Hgb Hct MCV MCH MCHC RDW Plt Count MPV Immature Gran % Neutrophils % Lymphocytes % Monocytes % Eosinophils % Basophils % Absolute Neutrophils Absolute Lymphocytes Absolute Monocytes Absolute Eosinophils Absolute Basophils PT 23.8 H INR 2.4 H Sodium Potassium Chloride Carbon Dioxide Anion Gap BUN Creatinine Estimated GFR/1.73 m2 Glucose Lactate 1.2 Calcium Magnesium Total Bilirubin AST ALT Alkaline Phosphatase Troponin I NT-Pro-B Natriuret Pep Total Protein Albumin TSH 1.07 Urine Color Urine Clarity Urine pH Ur Specific [place] Urine Protein Urine Ketones Urine Blood Urine Nitrite Urine Bilirubin Urine Urobilinogen Ur Leukocyte Esterase Urine RBC Urine WBC Ur Epithelial Cells Urine Crystals Urine Bacteria Urine Casts Urine Mucus Urine Other Ur Culture Indicated? Urine Glucose 11/10/19 11/10/19 11/10/19 15:12 16:15 22:10 WBC RBC Hgb Hct MCV MCH MCHC RDW Plt Count MPV Immature Gran % Neutrophils % Lymphocytes % Monocytes % Eosinophils % Basophils % Absolute Neutrophils Absolute Lymphocytes Absolute Monocytes Absolute Eosinophils Absolute Basophils PT INR Sodium Potassium Chloride Carbon Dioxide Anion Gap BUN Creatinine Estimated GFR/1.73 m2 Glucose Lactate Calcium Magnesium Total Bilirubin AST ALT Alkaline Phosphatase Troponin I 0.52 H* 0.37 H* NT-Pro-B Natriuret Pep Total Protein Albumin TSH Urine Color Yellow Urine Clarity Clear Urine pH 6.0 Ur Specific [place] 1.015 Urine Protein Trace H Urine Ketones Negative Urine Blood Trace-intact H Urine Nitrite Negative Urine Bilirubin Negative Urine Urobilinogen 0.2 Ur Leukocyte Esterase Trace H Urine RBC Negative Urine WBC 5-10 Ur Epithelial Cells Rare Urine Crystals Negative Urine Bacteria Negative Urine Casts Negative Urine Mucus Negative Urine Other Negative Ur Culture Indicated? Yes Urine Glucose Negative 11/11/19 11/11/19 06:20 06:20 WBC RBC Hgb Hct MCV MCH MCHC RDW Plt Count MPV Immature Gran % Neutrophils % Lymphocytes % Monocytes % Eosinophils % Basophils % Absolute Neutrophils Absolute Lymphocytes Absolute Monocytes Absolute Eosinophils Absolute Basophils PT 23.4 H INR 2.4 H Sodium Potassium Chloride Carbon Dioxide Anion Gap BUN Creatinine Estimated GFR/1.73 m2 Glucose Lactate Calcium Magnesium 2.1 Total Bilirubin AST ALT Alkaline Phosphatase Troponin I 0.20 H* NT-Pro-B Natriuret Pep Total Protein Albumin TSH Urine Color Urine Clarity Urine pH Ur Specific [place] Urine Protein Urine Ketones Urine Blood Urine Nitrite Urine Bilirubin Urine Urobilinogen Ur Leukocyte Esterase Urine RBC Urine WBC Ur Epithelial Cells Urine Crystals Urine Bacteria Urine Casts Urine Mucus Urine Other Ur Culture Indicated? Urine Glucose
[2019-11-11 10:27] LABS: Troponin I 0.19 ng/Ml (<0.06)
--- NOTE | 2019-11-11 10:35 | PHARADMIT ---
Admission Pharmacy Clinical Review CHF, ?? PNEUMONIA Code Status DNR/DNI Current Weight Wgt-100.8 kg Renally Cleared and Narrow Therapeutic Index Meds CrCl~ 34.7mL/min Meds-OK QTc Value / Action Taken QTc-468 (Elavil,Nexium, Cardarone,Plaquenil, Lasix) BP Control, Fever BP-106/60 Tmax- 36.9C Electrolytes reviewed Na-139 K+4.0 Mag-2.1 DVT Prophylaxis Warfarin Opiate Usage / Scheduled Bowel Regimen Ordered Yes (Tramadol) Yes Plt/SCr for Heparin / Enoxaparin Plts-268 SCr-1.25 INR for Warfarin INR-2.4 H/H stable, WBC/Bands H&H- 11.0/34.4 WBC-8.97 Antibiotic appropriateness Doxycycline/Rocephin x 1 in ER Cultures and Sensitivities Blood, Urine-pending Flu-neg Surgical ABX d/c within 24 hr na DM control / Insulin Dosing BG-98 Heart Failure (Check EF%) (NANDO's, B-Block, Diuretics) Amiodarone, Lasix, Hydralazine, Lopressor IV to PO Switch No Home Meds Reviewed Yes Home Meds Not Ordered Claritin, M-vites, Protonix Comments Samantha Shah (for Fibromyalgia)
--- NOTE | 2019-11-11 11:40 | PDOC.CMIN ---
- If Service Date Differs Date of service: 11/11/19 Time of Service: 11:40 Care Management Initial Assess REASON FOR HOSPITALIZATION:: Acute congestive heart failure PAST MEDICAL HISTORY/PAST SURGICAL HISTORY:: Atrial fib, depression, diverticulosis, fibromyalgia, hyperlipidemia, hypertension, intestinal adhesions, lupus. Surgical history includes hysterectomy, colectomy, ganglion cyst removal, tonsillectomy and adenoidectomy, bilateral cataract, , knee surgery, bilateral carpal tunnel release. PREVIOUS FUNCTIONAL STATUS/SOCIAL/FAMILY SUPPORTS:: Chandni is a x2 she lives in her own home in [place], [place] she has two children that live local. Chandni is planning on moving into a mother in law apartment with her son and his , and sell her home. She states she drives and is able to take care of herself indepedently. CURRENT FUNCTIONAL STATUS:: Chandni is alert and engaged with CM during visit she talks about her diet, and history of congestive heart failure, she also talked about daily weights. She states that the Lasix has not been working for her for a while and feels that her shortness of breath and her weakness has been increasing over time. Chandni would like more resources and information regarding her congestive heart failure and how to manage the chronic condition. ADVANCE DIRECTIVES:: On file Has patient been provided with information about the portal?: Yes Did the patient sign up for the portal?: No CODE STATUS:: DNR/DNI INSURANCE COVERAGE / FINANCIAL ISSUES:: [employer], Medicare, patient financial assistance CURRENT HOME/COMMUNITY SERVICES/EQUIPMENT:: None PRIMARY CARE PHYSICIAN:: Lyubov Burnett, [facility] POTENTIAL DISCHARGE NEEDS:: Follow-up appointment with primary care scheduled prior to discharge PATIENT/FAMILY EDUCATION NEEDS:: Discharge education, limitations, medications, follow-up plan of care, self-management and asked me 3. CM provided congestive heart failure resources and materials for weight monitoring, and activity tolerance. ANTICIPATED BARRIERS TO DISCHARGE:: None TRANSPORTATION:: Via private car with family at time of discharge PLAN:: Chandni will be discharged when medically ready. She will follow-up with her primary care as directed. No additional services at time of discharge. CM provided resources related to congestive heart failure and management. CM to continue to provide support discharge planning.
--- NOTE | 2019-11-11 12:30 | DI.US_ITS ---
APPROVED REPORT EXAM: Comprehensive 2D, Doppler, and color-flow Echocardiogram Patient Location: In-Patient ICU [employer] Material: Manuela Hyman RDCS (AE) Rhythm: Bradycardia Indications: CHF Conclusion Left Ventricle : The left ventricle is normal size. The left ventricular ejection fraction is within the normal range. Mild left ventricular hypertrophy. There is normal LV segmental wall motion but th ere is paradoxical septal motion. Diastolic function is indeterminate but there is evidence of eleva andrzej filling pressures. LVEF is estimated to be 55-60%. Right Ventricle : Right ventricle is mildly dilated. The right ventricular systolic function appears normal. Atria : Left atrium is mild to moderately dilated. Right atrium is mildly dilated. Aortic Valve : Aortic valve is thickened but has adequate excursion. There is no hemodynamically sign ificant aortic stenosis. Trace aortic regurgitation. Mitral Valve : The mitral valve is mildly thickened. Moderate mitral regurgitation. No evidence of mi tral valve stenosis. Great Vessels : The IVC is dilated, but collapses >50% with inspiration. Estimated RVSP is 33-41 mmH g. Compared to echocardiogram dated 09/29/2018: There is no significant change. Wall motion Left Ventricle The left ventricle is normal size. The left ventricular ejection fraction is within the normal range. Mild left ventricular hypertrophy. There is normal LV segmental wall motion but there is paradoxical septal motion. Diastolic function is indeterminate but there is evidence of elevated filling pressur es. LVEF is estimated to be 55-60%. Right Ventricle Right ventricle is mildly dilated. The right ventricular systolic function appears normal. Atria Left atrium is mild to moderately dilated. Right atrium is mildly dilated. Aortic Valve Aortic valve is thickened but has adequate excursion. There is no hemodynamically significant aortic stenosis Trace aortic regurgitation. Mitral Valve The mitral valve is mildly thickened. No evidence of mitral valve stenosis. Moderate mitral regurgita tion. Tricuspid Valve Tricuspid valve is not well visualized. Mild to moderate tricuspid regurgitation. Pulmonic Valve The pulmonary valve is normal in structure. Mild pulmonic regurgitation. Great Vessels The aortic root is normal in size. The ascending aorta is normal in size. The IVC is dilated, but col lapses >50% with inspiration. Estimated RVSP is 33-41 mmHg. Pericardium There is no pericardial effusion. 2D Dimensions IVSd 1.30 cm F: 0.6-1.0 LV EDV A2C 60.0 mL PWd 1.25 cm F: 0.6 - 1.0 LV EDV A4C 68.9 mL LVDd 4.75 cm F: 3.8 - 5.2 LA Volume Index Biplane 31.1 mL/m2 LVDs 3.30 cm F: 2.2 - 3.5 LA Area A4C 24.08 cm2 Aortic Root 2.80 cm F: 2.7 - 3.3 LA Area A2C 17.26 cm2 RVID Base (AP4) 4.30 cm (M/F) 2.5-4.1 EF AP4 62.1 % RA Area A4C 21.70 cm2 EF AP2 57.7 % LVOT 1.95 cm (M/F) 1.5-2.5 EF BP 59.3 % Ascending Aorta 3.08 cm F: 2.3 - 3.1 IVC 2.30 cm LVEF (Teich) 57.9 % TAPSE 1.76 cm (M/F) <1.7 LVEF (Welch's) 59.32 % F: 54 - 74 LV Volume 47.90 mL F: 46 - 106 LV Volume Index 22.91 mL/m2 F: 29 - 61 FS 30.50 % LV Diastology MV E' medial 0.070 (>0.07 m/s) E/A Ratio 3.5 LV E/e MED 14.95 (<14) PV S/D Ratio 0.60 MV E' lateral 0.090 (>0.1 m/s) TR Peak Velocity 2.90 m/s LV E/e LAT 11.50 (<14) Pulm Vein s 0.35 m/s Pulm Vein d 0.59 m/s LA vol/ BSA A2C s A-L 22.3 mL/m2 LA vol/ BSA A4C s A-L 41.1 mL/m2 Aortic Valve LVOT Area 3.09 cm2 AoV Area Vmax 2.03 cm2 LVOT Vmax 1.14 m/s AoV Area/ BSA (Vmax) 0.97 cm2/m2 LVOT Mean Toño. 0.79 m/s RADHA Mean Toño. 1.97 cm2 LVOT Peak Gr. 5.2 mmHg RADHA Mean Toño. Index 0.94 cm2/m2 LVOT Mean Gr. 2.9 mmHg LVOT VTI 0.248 m AoV Vmax 1.74 (0.5-1.3 m/s) AoV Mean Toño. 1.24 m/s AoV Peak Grad 12.0 mmHg LVOT SV 76.54 mL AoV Mean Grad 6.8 (<5 mmHg) AoV VTI 0.423 (0.18-0.25 m) AoV Area VTI 1.81 (2.5-4.5 cm2) AoV Area/ BSA (VTI) 0.87 cm/m2 Mitral Valve MV E Max Toño. 1.04 (0.4-1.3 m/s) MVA VTI 4.00 (4.0-6.0 cm2) MV A Velocity 0.30 (0.4-1.3 m/s) MV Regurg Volume 84.88 mL E/A Ratio 3.04 MV RF 52.58 % PV Peak Velocity 1.09 (0.5-1.5 m/s) RVOT Peak Gr. 3.86 mmHg RVOT Peak Toño. 0.98 m/s RVOT Mean Gr. 2.35 mmHg RVOT VTI 0.233 m Tricuspid Valve TR P. Gradient 33.6 mmHg TV Regurg Vmax 2.90 m/s RAP Estimate 8.00 mmHg RVSP 41.6 mmHg
--- NOTE | 2019-11-11 12:57 | NUR.NOTE ---
Echocardiogram is completed. Nursing Note:
--- NOTE | 2019-11-11 13:41 | CHAPLAIN ---
Chandni was reading in bed when I visited. She told me about being transported from her appointment at [facility] to [facility] ER when she went to the [facility] for an appointment after feeling tired and short of breath a few days. Chandni also told me about her previous stomach surgeries. She believes her son may be in to visit today or tomorrow. She seems to be comfortable being here, but is surprised how short of breath she still feels. I will continue to visit.
[2019-11-11] MEDS: Docusate Sodium 100 MG CAP PO (15:38)
[2019-11-11] MEDS: Atorvastatin 20 MG TAB PO (21:40)
[2019-11-11] MEDS: Amitriptyline 50 MG TAB PO (21:41)
[2019-11-12] VITALS (20 sets, daily range): BP systolic 115–168; BP diastolic 50–93; PULSE 49–70; RESP 4–20; TEMP 36.2–36.7; O2SAT 92–99
[2019-11-12 07:13] LABS: Anion Gap 8.8 mmol/L (3-11); BUN 30 mg/dL (7-18); CO2 27.2 mmol/L (21.0-32.0); CREATININE 1.56 mg/dL (0.55-1.02); Chloride 104 mmol/L (98-107); Glucose 109 mg/dL (74-106); Magnesium 1.9 mg/dL (1.8-2.4); Potassium 4.2 mmol/L (3.5-5.1); Sodium 140 mmol/L (136-145)
[2019-11-12 07:18] LABS: INR 1.9 (0.9-1.1)
--- NOTE | 2019-11-12 08:35 | PGE_ITS ---
Date of Service Date of service: 11/12/19 Time of Service: 16:21 Assessment and Plan Assessment and plan (1) NSTEMI (non-ST elevated myocardial infarction): Status: Acute Assessment and plan: Likely the precipitant of heart failure rather than the other way around. Transferred out of ICU. Continue asa, statin, check lipids, intensify diuresis. Parodoxycal wall motion seen on echo - could be due to intermittent LBBB. Will need ischemic workup - stress test as outpatient. (2) Acute diastolic CHF (congestive heart failure): Status: Acute Assessment and plan: As above - intensify diuresis. Monitor on tele to ensure that the reason that the patient went into CHF is not rapid Afib. Monitor I/O's and daily weights. (3) Bronchospasm: Status: Acute Assessment and plan: Could be cardiac wheezing - but will obtain procalcitonin as well. For now, no role for abx. Intensify diuresis. (4) Paroxysmal atrial fibrillation: Status: Acute Assessment and plan: Presently in NSR. Continue amiodarone, coumadin. Continue monitoring on tele. (5) Hyperlipidemia: Status: Acute Assessment and plan: Continue statin. Check fasting lipid panel. (6) DVT prophylaxis: Status: Acute Assessment and plan: on coumadin (7) Discharge planning issues: Status: Acute Assessment and plan: DNR/DNI. Transferred out of ICU. Continues to require hospitalization. Subjective Subjective Interval history since last seen: Complains of worsening leg swelling, wheezing, nonproductive cough. Endorses dizziness if she tries to get up. Denies chest pain/tightness/jaw pain. 96% on RA, afebrile. No CP, no arrhythmias. 1st degree AV block overnight, SR now. LBBB. Low of HR 49 overnight, 61 today. Heme -. Exam Narrative Exam Narrative: General: Very pleasant elderly female, sitting in a chair, audibly wheezing HEENT: EOMI, MMM Heart: RRR, no m/r/g Lungs: expiratory wheezing B Abdomen: soft, nontender, nondistended Extremities: +1 BLE edema, worse today Objective Objective Clinical Data: Abnormal lab results 11/11/19 11/12/19 11/12/19 Range/Units 09:55 06:45 06:45 PT 19.0 H (9.3-11.0) sec INR 1.9 H (0.9-1.1) BUN 30 H (7-18) mg/dL Creatinine 1.56 H (0.55-1.02) mg/dL Glucose 109 H (74-106) mg/dL Troponin I 0.19 H* (<0.06) ng/Ml Vital Signs Temperature 36.2 C L 11/11/19 15:02 Temperature Source Temporal Artery Scan 11/12/19 04:57 Pulse 60 11/12/19 04:57 Pulse 51 L 11/12/19 04:00 Respiratory Rate 14 11/12/19 04:57 Respiratory Effort 11/12/19 04:57 Respiratory Depth Normal 11/12/19 04:57 Respiratory Pattern Normal 11/12/19 04:57 Blood Pressure 167/50 H 11/12/19 04:57 Blood Pressure Mean 89 11/12/19 04:57 Blood Pressure Position Supine 11/12/19 04:57 Pulse Oximetry 95 11/12/19 04:57 Oxygen Delivery Method Room Air 11/11/19 18:07 Oxygen Flow Rate 0 11/11/19 18:07 Pain Level 0 11/12/19 04:57 Intake & Output 11/11/19 11/11/19 11/12/19 11:59 23:59 11:59 Intake Total 240 / 1200 960 / 1200 10 Output Total 250 / 800 550 / 800 700 / 700 Balance -10 / 400 410 / 400 -690 / -690 Intake: IV Oral 240 / 1200 960 / 1200 Output: Urine 250 / 600 350 / 600 700 / 700 Stool 200 / 200 Other: Urine Color Light Baylee Yellow Yellow Urine Appearance Clear Clear Clear Urine Odor Normal Normal None Stool Occult Blood Negative Stool Size Moderate Stool Characteristics Soft Formed Voiding Methods Bedside Commode Bedside Commode Bedside Commode Laboratory Results WBC 8.97 k/cumm (4.4-10.8) 11/10/19 13:26 RBC 3.66 m/cumm (4.00-5.20) L 11/10/19 13:26 Hgb 11.0 g/dL (12.0-15.5) L 11/10/19 13:26 Hct 34.4 % (36.0-46.0) L 11/10/19 13:26 MCV 94.0 fL (80-95) 11/10/19 13:26 MCH 30.1 pg (27.0-33.0) 11/10/19 13:26 MCHC 32.0 g/dL (32.0-36.0) 11/10/19 13:26 RDW 13.6 % (11.7-14.6) 11/10/19 13:26 Plt Count 268 x1000/uL (130-400) 11/10/19 13:26 MPV 9.8 fL (8.0-11.0) 11/10/19 13:26 Immature Gran % 0.1 % 11/10/19 13: Neutrophils % 79.4 11/10/19 13:26 Lymphocytes % 10.4 11/10/19 13: Monocytes % 9.7 11/10/19 13: Eosinophils % 0.3 11/10/19 13: Basophils % 0.1 11/10/19 13: Absolute Neutrophils 7.12 k/cumm (1.2-6.7) H 11/10/19 13:26 Absolute Lymphocytes 0.93 k/cumm (1.2-3.4) L 11/10/19 13: Absolute Monocytes 0.87 k/cumm (0.11-0.7) H 11/10/19 13: Absolute Eosinophils 0.03 k/cumm (0.0-0.7) 11/10/19 13: Absolute Basophils 0.01 k/cumm (0.0-0.2) 11/10/19 13:26 PT 19.0 sec (9.3-11.0) H 11/12/19 06:45 INR 1.9 (0.9-1.1) H 11/12/19 06:45 Sodium 140 mmol/L (136-145) 11/12/19 06:45 Potassium 4.2 mmol/L (3.5-5.1) 11/12/19 06:45 Chloride 104 mmol/L (98-107) 11/12/19 06:45 Carbon Dioxide 27.2 mmol/L (21.0-32.0) 11/12/19 06:45 Anion Gap 8.8 mmol/L (3-11) 11/12/19 06:45 BUN 30 mg/dL (7-18) H 11/12/19 06:45 Creatinine 1.56 mg/dL (0.55-1.02) H 11/12/19 06:45 Estimated GFR/1.73 m2 32.10 (mL/min/1.73m2) 11/12/19 06:45 Glucose 109 mg/dL (74-106) H 11/12/19 06:45 Lactate 1.2 mmol/L (0.6-1.4) 11/10/19 13:54 Calcium 9.0 mg/dL (8.5-10.1) 11/12/19 06:45 Magnesium 1.9 mg/dL (1.8-2.4) 11/12/19 06:45 Total Bilirubin 1.5 mg/dL (0.2-1.0) H 11/10/19 13:26 AST 37 U/L (15-37) 11/10/19 13:26 ALT 24 U/L (14-59) 11/10/19 13:26 Alkaline Phosphatase 80 U/L (46-116) 11/10/19 13:26 Troponin I 0.19 ng/Ml (<0.06) H* 11/11/19 09:55 NT-Pro-B Natriuret Pep 4428 pg/mL (<300) H 11/10/19 13:26 Total Protein 7.0 g/dL (6.4-8.2) 11/10/19 13:26 Albumin 3.4 g/dL (3.4-5.0) 11/10/19 13:26 TSH 1.07 uIU/mL (0.36-3.74) 11/10/19 13:26 Urine Color Yellow (Yellow) 11/10/19 15:12 Urine Clarity Clear (Clear) 11/10/19 15:12 Urine pH 6.0 (5-8) 11/10/19 15:12 Ur Specific [place] 1.015 (1.005-1.025) 11/10/19 15:12 Urine Protein Trace mg/dL (Negative) H 11/10/19 15:12 Urine Ketones Negative mg/dL (Negative) 11/10/19 15:12 Urine Blood Trace-intact (Negative) H 11/10/19 15:12 Urine Nitrite Negative (Negative) 11/10/19 15:12 Urine Bilirubin Negative (Negative) 11/10/19 15:12 Urine Urobilinogen 0.2 EU/dL (Up TO 0.2) 11/10/19 15:12 Ur Leukocyte Esterase Trace (Negative) H 11/10/19 15:12 Urine RBC Negative HPF (0-2) 11/10/19 15:12 Urine WBC 5-10 HPF (0-5) 11/10/19 15:12 Ur Epithelial Cells Rare HPF (Negative) 11/10/19 15:12 Urine Crystals Negative HPF (Negative) 11/10/19 15:12 Urine Bacteria Negative HPF (Negative) 11/10/19 15:12 Urine Casts Negative LPF (Negative) 11/10/19 15:12 Urine Mucus Negative (Negative) 11/10/19 15:12 Urine Other Negative (Negative) 11/10/19 15:12 Ur Culture Indicated? Yes 11/10/19 15:12 Urine Glucose Negative mg/dL (Negative) 11/10/19 15:12
[2019-11-12] MEDS: Cholecalciferol (Vitamin D3) 1,000 UNIT TAB 1000 UNITS PO (08:58)
[2019-11-12] MEDS: hydrALAZINE 10 MG TAB PO ×3 (08:58→20:28)
[2019-11-12] MEDS: Esomeprazole 40 MG CAPCR PO (08:58)
[2019-11-12] MEDS: Amiodarone 200 MG TAB PO (08:58)
[2019-11-12] MEDS: Aspirin E.C. 81 MG TABEC PO (08:58)
[2019-11-12] MEDS: Furosemide 40 MG TAB PO ×2 (08:58→15:50)
[2019-11-12] MEDS: Hydroxychloroquine 200 MG TAB PO (08:58)
[2019-11-12] MEDS: traMADol 50 MG TAB PO ×2 (08:58→20:28)
[2019-11-12] MEDS: Metoprolol 25 MG TAB PO ×2 (08:58→20:28)
[2019-11-12] MEDS: Polyethylene Glycol 3350 17 GM PACKET PO (08:59)
--- NOTE | 2019-11-12 13:28 | W.NUTCONSULT ---
Date of service: 11/12/19 Time of Service: 13:28 Nutritional Consult ASSESSMENT: 79 year old female admitted with CHF exacerbation. BMI indicates class 2 obesity. Following Low Sodium Diet with excellent intake. Met with Chandni today to review principles of Low Sodium Diet in relation to her CHF. Chandni reports she eats out 7-10 times per week, reviewed need to order low salt items/speak to chef de cuisine/cook. Provided education material. Reviewed weight management principles as well. Chandni seems aggreeable to this. Provided her with my contact information if needs out patient counseling. NUTRITIONAL DIAGNOSIS: obesity INTERVENTION: educated on low sodium, weight management diet for discharge, provided outpatient contact information MONITORING AND EVALUATION: weight, po intake, labs Time Spent in Nutritional Counseling and Treatment: 15 min spent face to face
--- NOTE | 2019-11-12 13:29 | PDOC.CMPRO ---
- If Service Date Differs Date of service: 11/12/19 Time of Service: 13:29 Care Management Progress Note S/O: Chandni status was changed to acute from ICU level of care today. She received CHF educational material and the ICU nurse was going to review the information with her. No other changes at this time, CM to continue to provide support, discharge planning. A:Chandni is a 79 year old female admitted with acute CHF P:Chandni will be discharged home when medically ready. She will need to follow up with primary care and cardiology as directed. Family will transport her home at time of discharge.
[2019-11-12] MEDS: Albuterol/Ipratropium 3 ML UPD VIAL UPD (16:39)
[2019-11-12] MEDS: Furosemide 40 MG/4 ML VIAL IVP (16:39)
[2019-11-12 17:26] LABS: Procalcitonin < 0.1 ng/mL
[2019-11-12] MEDS: Warfarin 5 MG TAB PO (20:28)
[2019-11-12] MEDS: Amitriptyline 50 MG TAB PO (22:09)
[2019-11-12] MEDS: Atorvastatin 20 MG TAB PO (22:09)
[2019-11-13] VITALS (9 sets, daily range): BP systolic 120–175; BP diastolic 50–89; PULSE 50–65; RESP 17–18; TEMP 36.5–37.1; O2SAT 94–96
[2019-11-13 07:35] LABS: Abs Immature Grans 0.02 k/cumm (0.0-0.09); Absolute Basophil Count 0.01 k/cumm (0.0-0.2); Absolute Eosinophil Count 0.18 k/cumm (0.0-0.7); Absolute Lymphocyte Count 1.07 k/cumm (1.2-3.4); Absolute Monocyte Count 0.82 k/cumm (0.11-0.7); Absolute Neutrophil Count 4.17 k/cumm (1.2-6.7); Basophils % 0.2; Eosinophils % 2.9; HCT 31.5 % (36.0-46.0); Immature Grans % 0.3 %; Lymphocytes % 17.1; Mean Corp. HGB Concentration 31.7 g/dL (32.0-36.0); Mean Corpuscular Hemoglobin 29.9 pg (27.0-33.0); Mean Corpuscular Volume 94.3 fL (80-95); Mean Platelet Volume 9.8 fL (8.0-11.0); Monocytes % 13.1; Neutrophils % 66.4; Platelet Count 322 x1000/uL (130-400); RBC 3.34 m/cumm (4.00-5.20); RBC Distribution Width 13.5 % (11.7-14.6); White Blood Cell Count 6.27 k/cumm (4.4-10.8)
[2019-11-13 07:39] LABS: Anion Gap 5.4 mmol/L (3-11); BUN 31 mg/dL (7-18); CO2 31.6 mmol/L (21.0-32.0); Calcium 8.7 mg/dL (8.5-10.1); Chloride 102 mmol/L (98-107); Estimated GFR 29.07 (mL/min/1.73m2); Glucose 110 mg/dL (74-106); Potassium 4.1 mmol/L (3.5-5.1); Sodium 139 mmol/L (136-145)
[2019-11-13 07:44] LABS: Calculated LDL 68 mg/dL; Cholesterol 138 mg/dL (<200); HDL Cholesterol 56 mg/dL (40-60); Magnesium 1.9 mg/dL (1.8-2.4); Triglyceride 71 mg/dL (<150)
[2019-11-13 07:50] LABS: INR 1.7 (0.9-1.1); Prothrombin Time 16.8 sec (9.3-11.0)
[2019-11-13] MEDS: Furosemide 40 MG/4 ML VIAL IVP (09:18)
[2019-11-13] MEDS: Hydroxychloroquine 200 MG TAB PO (09:18)
[2019-11-13] MEDS: traMADol 50 MG TAB PO ×2 (09:19→20:30)
[2019-11-13] MEDS: Cholecalciferol (Vitamin D3) 1,000 UNIT TAB 1000 UNITS PO (09:19)
[2019-11-13] MEDS: Amiodarone 200 MG TAB PO (09:19)
[2019-11-13] MEDS: Aspirin E.C. 81 MG TABEC PO (09:19)
[2019-11-13] MEDS: Multivitamin w/Minerals TAB 1 TAB PO (09:19)
[2019-11-13] MEDS: Esomeprazole 40 MG CAPCR PO (09:19)
[2019-11-13] MEDS: Metoprolol 25 MG TAB PO ×2 (09:19→20:30)
[2019-11-13] MEDS: hydrALAZINE 10 MG TAB PO ×3 (09:19→20:29)
[2019-11-13 10:46] LABS: NT-proBNP 498 pg/mL (<300)
[2019-11-13] MEDS: Furosemide 40 MG TAB PO (15:03)
--- NOTE | 2019-11-13 17:01 | PGE_ITS ---
Date of Service Date of service: 11/13/19 Time of Service: 17:02 Assessment and Plan Assessment and plan (1) NSTEMI (non-ST elevated myocardial infarction): Status: Acute Assessment and plan: Patient has had no further episodes of chest pain. 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 I am thinking she actually had acute on chronic diastolic heart failure the cause of troponin leak. She only went up to a troponin of 0.19 and quickly came back down to 0.01 with resolution of her CHF. Her echocardiogram showed normal left ventricular ejection fraction of 55 to 60% she does have paradoxical septal wall motion but this is related to her bundle branch block. She has a dilated RV but normal RV systolic function. Plan is for her to have an outpatient stress MPI on Friday. This will have to be Lexiscan. (2) Paroxysmal atrial fibrillation: Status: Acute Assessment and plan: I am not convinced that her atrial fibrillation is paroxysmal I think this is more of a persistent chronic atrial fibrillation with well-controlled rate. She very well may have had some runs of rapid ventricular rate that put her in a CHF as her heart rate was not well controlled when she first presented to the hospital. She was having heart rates in the high 90s and low 100s upwards of 157 bpm. INR is subtherapeutic at 1.7 this is continued to decline from her admission INR 2.4. I have increased her warfarin dose from 5 mg nightly to 10 mg nightly. We will recheck her INR tomorrow and I will discuss with her close follow-up as an outpatient. (3) Acute diastolic CHF (congestive heart failure): Status: Acute Assessment and plan: She has shown significant improvement in her CHF with a market drop in her proBNP from a peak of 4400 on admission down to current level 498. Goal here is to keep her euvolemic and keep her blood pressure controlled and keep her atrial fibrillation under rate control. I will discuss with her further about use of NANDO inhibitors and angiotensin receptor blockers to try to find out whether she had been on this before and was intolerant she has chronic renal insufficiency and it may be a case that her renal function worsened on ANNDO inhibitor's or ARB medications. Subjective Subjective Interval history since last seen: No further chest pain. Dyspnea has improved. Weight has declined nearly 3 kg since admission. She has been receiving IV Lasix which I have switched over to oral Lasix today. Her BUN and creatinine have climbed slightly with her creatinine now 1.7 it was 1.25 on admission but her baseline level seems to vary between 1.5 and 1.8. Her BUN appears to be close to her baseline which varies between 23 and 30. Overall she is feeling better and is looking forward to discharge. I explained her that I just changed over to oral Lasix 40 mg twice a day would like to repeat her BMP in the morning. It is encouraging that her weight is gone down and her proBNP has declined to 498 from a peak level 4400. I think now that she is reached euvolemia she should be started on a low-dose NANDO inhibitor or angiotensin receptor shiv. And amiodarone although her rhythm remains atrial fibrill ation at a controlled ventricular rate. Her INR is subtherapeutic at 1.7 and therefore increased her warfarin dose to 10 mg nightly. She was getting 5 mg nightly. We will recheck her [facility]R in the [facility] and adjust her home-going discharge dose accordingly. She apparently was on hydralazine at home and Dr. Melo increased to 10 mg 3 times daily. I have to discuss with her as to why she is not taking an NANDO inhibitor nor an ARB. Exam Narrative Exam Narrative: Elderly female who sitting up talking with her family in no respiratory distress. She is talking in full sentences not wearing any oxygen. Neck is without JVD. Lungs are clear to auscultation without wheezes rales or rhonchi. Heart is irregularly irregular at a controlled rate. No thrill or heave. Lower extremities show trace of edema Objective Objective Clinical Data: Abnormal lab results 11/13/19 11/13/19 11/13/19 Range/Units 07:10 07:10 07:10 RBC (4.00-5.20) m/cumm Hgb (12.0-15.5) g/dL Hct (36.0-46.0) % MCHC (32.0-36.0) g/dL Absolute Lymphocytes (1.2-3.4) k/cumm Absolute Monocytes (0.11-0.7) k/cumm PT 16.8 H (9.3-11.0) sec INR 1.7 H (0.9-1.1) BUN 31 H (7-18) mg/dL Creatinine 1.70 H (0.55-1.02) mg/dL Glucose 110 H (74-106) mg/dL NT-Pro-B Natriuret Pep 498 H (<300) pg/mL 11/13/19 Range/Units 07:10 RBC 3.34 L (4.00-5.20) m/cumm Hgb 10.0 L (12.0-15.5) g/dL Hct 31.5 L (36.0-46.0) % MCHC 31.7 L (32.0-36.0) g/dL Absolute Lymphocytes 1.07 L (1.2-3.4) k/cumm Absolute Monocytes 0.82 H (0.11-0.7) k/cumm PT (9.3-11.0) sec INR (0.9-1.1) BUN (7-18) mg/dL Creatinine (0.55-1.02) mg/dL Glucose (74-106) mg/dL NT-Pro-B Natriuret Pep (<300) pg/mL Vital Signs Temperature 36.6 C 11/13/19 15:05 Temperature Source Tympanic 11/13/19 15:05 Pulse 51 L 11/13/19 15:05 Pulse Rhythm Regular 11/13/19 15:59 Pulse 61 11/12/19 08:21 Respiratory Rate 18 11/13/19 15:05 Respiratory Effort Non-Labored 11/13/19 15:59 Respiratory Depth Normal 11/13/19 15:59 Respiratory Pattern Normal 11/13/19 15:59 Blood Pressure 120/53 L 11/13/19 15:05 Blood Pressure Mean 78 11/12/19 08:21 Blood Pressure Position Sitting 11/12/19 08:20 Pulse Oximetry 96 11/13/19 15:05 Oxygen Delivery Method Room Air 11/13/19 15:05 Oxygen Flow Rate 0 11/13/19 15:05 Pain Level 0 11/13/19 11:50 Intake & Output 11/12/19 11/13/19 11/13/19 23:59 11:59 23:59 Intake Total 120 / 120 Balance 120 / 120 Weight 100.2 kg Intake: Oral 120 / 120 Other: Urine Color Yellow Urine Appearance Clear Clear Clear Urine Odor Normal Comment unmeasured Stool Size Moderate Stool Characteristics Soft Liquid Brown Voiding Methods Toilet Toilet Laboratory Results WBC 6.27 k/cumm (4.4-10.8) 11/13/19 07:10 RBC 3.34 m/cumm (4.00-5.20) L 11/13/19 07:10 Hgb 10.0 g/dL (12.0-15.5) L 11/13/19 07:10 Hct 31.5 % (36.0-46.0) L 11/13/19 07:10 MCV 94.3 fL (80-95) 11/13/19 07:10 MCH 29.9 pg (27.0-33.0) 11/13/19 07:10 MCHC 31.7 g/dL (32.0-36.0) L 11/13/19 07:10 RDW 13.5 % (11.7-14.6) 11/13/19 07:10 Plt Count 322 x1000/uL (130-400) 11/13/19 07:10 MPV 9.8 fL (8.0-11.0) 11/13/19 07:10 Immature Gran % 0.3 % 11/13/19 07:10 Neutrophils % 66.4 11/13/19 07:10 Lymphocytes % 17.1 11/13/19 07:10 Monocytes % 13.1 11/13/19 07:10 Eosinophils % 2.9 11/13/19 07:10 Basophils % 0.2 11/13/19 07:10 Absolute Neutrophils 4.17 k/cumm (1.2-6.7) 11/13/19 07:10 Absolute Lymphocytes 1.07 k/cumm (1.2-3.4) L 11/13/19 07:10 Absolute Monocytes 0.82 k/cumm (0.11-0.7) H 11/13/19 07:10 Absolute Eosinophils 0.18 k/cumm (0.0-0.7) 11/13/19 07:10 Absolute Basophils 0.01 k/cumm (0.0-0.2) 11/13/19 07:10 PT 16.8 sec (9.3-11.0) H 11/13/19 07:10 INR 1.7 (0.9-1.1) H 11/13/19 07:10 Sodium 139 mmol/L (136-145) 11/13/19 07:10 Potassium 4.1 mmol/L (3.5-5.1) 11/13/19 07:10 Chloride 102 mmol/L (98-107) 11/13/19 07:10 Carbon Dioxide 31.6 mmol/L (21.0-32.0) 11/13/19 07:10 Anion Gap 5.4 mmol/L (3-11) 11/13/19 07:10 BUN 31 mg/dL (7-18) H 11/13/19 07:10 Creatinine 1.70 mg/dL (0.55-1.02) H 11/13/19 07:10 Estimated GFR/1.73 m2 29.07 (mL/min/1.73m2) 11/13/19 07:10 Glucose 110 mg/dL (74-106) H 11/13/19 07:10 Lactate 1.2 mmol/L (0.6-1.4) 11/10/19 13:54 Calcium 8.7 mg/dL (8.5-10.1) 11/13/19 07:10 Magnesium 1.9 mg/dL (1.8-2.4) 11/13/19 07:10 Total Bilirubin 1.5 mg/dL (0.2-1.0) H 11/10/19 13:26 AST 37 U/L (15-37) 11/10/19 13:26 ALT 24 U/L (14-59) 11/10/19 13:26 Alkaline Phosphatase 80 U/L (46-116) 11/10/19 13:26 Troponin I 0.19 ng/Ml (<0.06) H* 11/11/19 09:55 Total Protein 7.0 g/dL (6.4-8.2) 11/10/19 13:26 Albumin 3.4 g/dL (3.4-5.0) 11/10/19 13:26 NT-Pro-B Natriuret Pep 498 pg/mL (<300) H 11/13/19 07:10 Triglycerides 71 mg/dL (<150) 11/13/19 07:10 Total Cholesterol 138 mg/dL (<200) 11/13/19 07:10 LDL Cholesterol, Calc 68 mg/dL 11/13/19 07:10 HDL Cholesterol 56 mg/dL (40-60) 11/13/19 07:10 TSH 1.07 uIU/mL (0.36-3.74) 11/10/19 13:26 Procalcitonin < 0.1 ng/mL 11/12/19 16:50 Urine Color Yellow (Yellow) 11/10/19 15:12 Urine Clarity Clear (Clear) 11/10/19 15:12 Urine pH 6.0 (5-8) 11/10/19 15:12 Ur Specific [place] 1.015 (1.005-1.025) 11/10/19 15:12 Urine Protein Trace mg/dL (Negative) H 11/10/19 15:12 Urine Ketones Negative mg/dL (Negative) 11/10/19 15:12 Urine Blood Trace-intact (Negative) H 11/10/19 15:12 Urine Nitrite Negative (Negative) 11/10/19 15:12 Urine Bilirubin Negative (Negative) 11/10/19 15:12 Urine Urobilinogen 0.2 EU/dL (Up TO 0.2) 11/10/19 15:12 Ur Leukocyte Esterase Trace (Negative) H 11/10/19 15:12 Urine RBC Negative HPF (0-2) 11/10/19 15:12 Urine WBC 5-10 HPF (0-5) 11/10/19 15:12 Ur Epithelial Cells Rare HPF (Negative) 11/10/19 15:12 Urine Crystals Negative HPF (Negative) 11/10/19 15:12 Urine Bacteria Negative HPF (Negative) 11/10/19 15:12 Urine Casts Negative LPF (Negative) 11/10/19 15:12 Urine Mucus Negative (Negative) 11/10/19 15:12 Urine Other Negative (Negative) 11/10/19 15:12 Ur Culture Indicated? Yes 11/10/19 15:12 Urine Glucose Negative mg/dL (Negative) 11/10/19 15:12
--- NOTE | 2019-11-13 18:52 | PDOC.CMPRO ---
- If Service Date Differs Date of service: 11/13/19 Time of Service: 18:52 Care Management Progress Note S/O: Chandni was sitting up in a chair when CM met with her. She was very pleasant and engaged readily in conversation. Chandni talked at length about her current residence which has 12 rooms and the challenges it's upkeep poses. She states that her son and his have invited her to move into an in-law apartment in their home. She feels that the time is coming where she should not be totally alone anymore and plans to move soon. She also talked about her who in 2012 and the course of his illness. Chandni states that she is feeling better and hopes to go home soon. Her INR has not stabilized yet and her warfarin dosing is being adjusted. A:Chandni is a 79 year old female admitted with acute CHF P:Chandni will be discharged home when medically ready. She will need to follow up with primary care and cardiology as directed. Family will transport her home at time of discharge. CM will continue to support patient, family and discharge planning needs.
[2019-11-13] MEDS: Amitriptyline 50 MG TAB PO (20:30)
[2019-11-13] MEDS: Warfarin 5 MG TAB 10 MG PO (20:31)
[2019-11-13] MEDS: Atorvastatin 20 MG TAB PO (20:31)
[2019-11-14] VITALS (7 sets, daily range): BP systolic 121–134; BP diastolic 58–77; PULSE 49–61; RESP 17–18; TEMP 36.5–36.7; O2SAT 95–96
[2019-11-14 07:28] LABS: INR 1.5 (0.9-1.1); Prothrombin Time 15.1 sec (9.3-11.0)
[2019-11-14] MEDS: Esomeprazole 40 MG CAPCR PO (09:17)
[2019-11-14] MEDS: Multivitamin w/Minerals TAB 1 TAB PO (09:17)
[2019-11-14] MEDS: Polyethylene Glycol 3350 17 GM PACKET PO (09:17)
[2019-11-14] MEDS: Furosemide 40 MG TAB PO ×2 (09:18→15:19)
[2019-11-14] MEDS: Amiodarone 200 MG TAB PO (09:18)
[2019-11-14] MEDS: hydrALAZINE 10 MG TAB PO ×2 (09:18→15:19)
[2019-11-14] MEDS: Metoprolol 25 MG TAB PO (09:18)
[2019-11-14] MEDS: Hydroxychloroquine 200 MG TAB PO (09:18)
[2019-11-14] MEDS: traMADol 50 MG TAB PO (09:18)
[2019-11-14] MEDS: Aspirin E.C. 81 MG TABEC PO (09:18)
[2019-11-14] MEDS: Cholecalciferol (Vitamin D3) 1,000 UNIT TAB 1000 UNITS PO (09:18)
--- NOTE | 2019-11-14 09:19 | W.PM.PROGNOT ---
Date of Service Date of service: 11/14/19 Time of Service: 09:19 Assessment and Plan Assessment and plan (1) NSTEMI (non-ST elevated myocardial infarction): Status: Acute Assessment and plan: Plan is for discharge today with a follow-up outpatient stress MPI tomorrow using Lexiscan. (2) Paroxysmal atrial fibrillation: Status: Acute Assessment and plan: Per her rhythm strip she is in sinus bradycardia with first-degree AV block this morning. She remains on amiodarone 200 mg daily. She says at home her last prescription had indicated she was to take 2 tablets of 200 mg daily. This is a rather high dose for maintenance. Her rate is very well controlled on her current regimen of metoprolol and amiodarone. She is currently under anticoagulated. INR is only 1.5 today despite the increased dose of her warfarin. (3) Acute diastolic CHF (congestive heart failure): Status: Acute Assessment and plan: She has shown significant improvement in her CHF with a market drop in her proBNP from a peak of 4400 on admission down to current level 345. Goal here is to keep her euvolemic and keep her blood pressure controlled and keep her atrial fibrillation under rate control. She does not recall ever being tried on any NANDO inhibitors nor any ARB. I specifically metioned several names none of which she recognized. Furthermore, I accessed her [facility] records and per Dr. Suero, her carbide die maker, she is suppose to be on hydralazine 20 mg tid; not 10 mg once a day. He did not note in his records as to why she is not taking an NANDO inhibitor nor an ARB. We have her on hydralazine 10 mg TID. I will keep her on this dose and have her follow up w/ her carbide die maker. Subjective Subjective Interval history since last seen: No further chest pain or chest pressure. No dyspnea. Rhythm is sinus bradycardia in the 50s to 60s with first-degree AV block. INR dropped down to 1.5 this morning despite my raising her warfarin dose to 10 mg nightly. Her BMP did not get done this morning. I like to recheck that before I discharge her today as I may need to adjust her Lasix dose. Otherwise I plan to discharge her with further monitoring of her INR as an outpatient. She will follow-up with Dr. Tee Exam Narrative Exam Narrative: Elderly female who sitting up talking with her family in no respiratory distress. She is talking in full sentences not wearing any oxygen. Neck is without JVD. Lungs are clear to auscultation without wheezes rales or rhonchi. Heart is irregularly irregular at a controlled rate. No thrill or heave. Lower extremities show trace of edema Objective Objective Clinical Data: Abnormal lab results 11/13/19 11/14/19 Range/Units 07:10 06:59 PT 15.1 H (9.3-11.0) sec INR 1.5 H (0.9-1.1) NT-Pro-B Natriuret Pep 498 H (<300) pg/mL Vital Signs Temperature 36.5 C 11/14/19 07:20 Temperature Source Tympanic 11/14/19 07:20 Pulse 53 L 11/14/19 07:20 Pulse Rhythm Regular 11/14/19 01:27 Pulse 61 11/12/19 08:21 Respiratory Rate 18 11/14/19 07:20 Respiratory Effort Non-Labored 11/14/19 01:27 Respiratory Depth Normal 11/14/19 01:27 Respiratory Pattern Normal 11/14/19 01:27 Blood Pressure 121/77 11/14/19 07:20 Blood Pressure Mean 78 11/12/19 08:21 Blood Pressure Position Sitting 11/12/19 08:20 Pulse Oximetry 96 11/14/19 07:20 Oxygen Delivery Method Room Air 11/14/19 07:20 Oxygen Flow Rate 0 11/14/19 07:20 Pain Level 0 11/14/19 07:20 Intake & Output 11/13/19 11/13/19 11/14/19 11:59 23:59 11:59 Intake Total 360 / 360 Balance 360 / 360 Weight 100.2 kg 100.2 kg Intake: Oral 360 / 360 Other: Urine Color Yellow Urine Appearance Clear Clear Clear Urine Odor Normal Voiding Methods Toilet Laboratory Results WBC 6.27 k/cumm (4.4-10.8) 11/13/19 07:10 RBC 3.34 m/cumm (4.00-5.20) L 11/13/19 07:10 Hgb 10.0 g/dL (12.0-15.5) L 11/13/19 07:10 Hct 31.5 % (36.0-46.0) L 11/13/19 07:10 MCV 94.3 fL (80-95) 11/13/19 07:10 MCH 29.9 pg (27.0-33.0) 11/13/19 07:10 MCHC 31.7 g/dL (32.0-36.0) L 11/13/19 07:10 RDW 13.5 % (11.7-14.6) 11/13/19 07:10 Plt Count 322 x1000/uL (130-400) 11/13/19 07:10 MPV 9.8 fL (8.0-11.0) 11/13/19 07:10 Immature Gran % 0.3 % 11/13/19 07:10 Neutrophils % 66.4 11/13/19 07:10 Lymphocytes % 17.1 11/13/19 07:10 Monocytes % 13.1 11/13/19 07:10 Eosinophils % 2.9 11/13/19 07:10 Basophils % 0.2 11/13/19 07:10 Absolute Neutrophils 4.17 k/cumm (1.2-6.7) 11/13/19 07:10 Absolute Lymphocytes 1.07 k/cumm (1.2-3.4) L 11/13/19 07:10 Absolute Monocytes 0.82 k/cumm (0.11-0.7) H 11/13/19 07:10 Absolute Eosinophils 0.18 k/cumm (0.0-0.7) 11/13/19 07:10 Absolute Basophils 0.01 k/cumm (0.0-0.2) 11/13/19 07:10 PT 15.1 sec (9.3-11.0) H 11/14/19 06:59 INR 1.5 (0.9-1.1) H 11/14/19 06:59 Sodium 139 mmol/L (136-145) 11/13/19 07:10 Potassium 4.1 mmol/L (3.5-5.1) 11/13/19 07:10 Chloride 102 mmol/L (98-107) 11/13/19 07:10 Carbon Dioxide 31.6 mmol/L (21.0-32.0) 11/13/19 07:10 Anion Gap 5.4 mmol/L (3-11) 11/13/19 07:10 BUN 31 mg/dL (7-18) H 11/13/19 07:10 Creatinine 1.70 mg/dL (0.55-1.02) H 11/13/19 07:10 Estimated GFR/1.73 m2 29.07 (mL/min/1.73m2) 11/13/19 07:10 Glucose 110 mg/dL (74-106) H 11/13/19 07:10 Lactate 1.2 mmol/L (0.6-1.4) 11/10/19 13:54 Calcium 8.7 mg/dL (8.5-10.1) 11/13/19 07:10 Magnesium 1.9 mg/dL (1.8-2.4) 11/13/19 07:10 Total Bilirubin 1.5 mg/dL (0.2-1.0) H 11/10/19 13:26 AST 37 U/L (15-37) 11/10/19 13:26 ALT 24 U/L (14-59) 11/10/19 13:26 Alkaline Phosphatase 80 U/L (46-116) 11/10/19 13:26 Troponin I 0.19 ng/Ml (<0.06) H* 11/11/19 09:55 Total Protein 7.0 g/dL (6.4-8.2) 11/10/19 13:26 Albumin 3.4 g/dL (3.4-5.0) 11/10/19 13:26 NT-Pro-B Natriuret Pep 498 pg/mL (<300) H 11/13/19 07:10 Triglycerides 71 mg/dL (<150) 11/13/19 07:10 Total Cholesterol 138 mg/dL (<200) 11/13/19 07:10 LDL Cholesterol, Calc 68 mg/dL 11/13/19 07:10 HDL Cholesterol 56 mg/dL (40-60) 11/13/19 07:10 TSH 1.07 uIU/mL (0.36-3.74) 11/10/19 13:26 Procalcitonin < 0.1 ng/mL 11/12/19 16:50 Urine Color Yellow (Yellow) 11/10/19 15:12 Urine Clarity Clear (Clear) 11/10/19 15:12 Urine pH 6.0 (5-8) 11/10/19 15:12 Ur Specific [place] 1.015 (1.005-1.025) 11/10/19 15:12 Urine Protein Trace mg/dL (Negative) H 11/10/19 15:12 Urine Ketones Negative mg/dL (Negative) 11/10/19 15:12 Urine Blood Trace-intact (Negative) H 11/10/19 15:12 Urine Nitrite Negative (Negative) 11/10/19 15:12 Urine Bilirubin Negative (Negative) 11/10/19 15:12 Urine Urobilinogen 0.2 EU/dL (Up TO 0.2) 11/10/19 15:12 Ur Leukocyte Esterase Trace (Negative) H 11/10/19 15:12 Urine RBC Negative HPF (0-2) 11/10/19 15:12 Urine WBC 5-10 HPF (0-5) 11/10/19 15:12 Ur Epithelial Cells Rare HPF (Negative) 11/10/19 15:12 Urine Crystals Negative HPF (Negative) 11/10/19 15:12 Urine Bacteria Negative HPF (Negative) 11/10/19 15:12 Urine Casts Negative LPF (Negative) 11/10/19 15:12 Urine Mucus Negative (Negative) 11/10/19 15:12 Urine Other Negative (Negative) 11/10/19 15:12 Ur Culture Indicated? Yes 11/10/19 15:12 Urine Glucose Negative mg/dL (Negative) 11/10/19 15:12
[2019-11-14 09:38] LABS: Anion Gap 7.2 mmol/L (3-11); BUN 30 mg/dL (7-18); CO2 32.8 mmol/L (21.0-32.0); CREATININE 1.67 mg/dL (0.55-1.02); Calcium 8.6 mg/dL (8.5-10.1); Chloride 103 mmol/L (98-107); Estimated GFR 29.67 (mL/min/1.73m2); Glucose 103 mg/dL (74-106); Potassium 4.3 mmol/L (3.5-5.1); Sodium 143 mmol/L (136-145)
[2019-11-14 10:32] LABS: NT-proBNP 345 pg/mL (<300)
--- NOTE | 2019-11-14 14:18 | W.PM.DS.N ---
Date of service: 11/14/19 Time of Service: 14:19 DS: Diagnosis Discharge Diagnosis (1) NSTEMI (non-ST elevated myocardial infarction): Status: Acute Asessment and Plan: Patient will remain on aspirin 81 mg daily along with her warfarin. We will schedule her for an outpatient Lexiscan stress MPI in the next 1 to 2 weeks. She is to follow-up with her decorating machine operator. She will continue on her Toprol-XL as previously prescribed (2) Paroxysmal atrial fibrillation: Status: Acute Asessment and Plan: Patient will be discharged on 10 mg of warfarin tonight then 5 mg nightly thereafter. She is instructed to check her INR daily. Apparently she has her own pro time meter at home. She is to call Dr. Tee with her readings to have her warfarin dose adjusted. (3) Acute diastolic CHF (congestive heart failure): Status: Acute Asessment and Plan: Patient is to have a follow-up stress MPI study to rule out ischemic cause for her CHF. She is to remain on the increased dose of hydralazine 10 mg 3 times a day along with the furosemide 40 mg twice a day. She should weigh herself daily and report any significant weight gain. She should get a follow-up BMP next week and see her primary care provider. Further discussion should be held between the patient and her PCP and her decorating machine operator about whether or not she should be on an NANDO inhibitor or angiotensin receptor shiv rather than hydralazine Discharge Plan Disposition Patient Disposition: HOME Condition: Improving Discharge Details Chief Complaint: GenMedical Reason For Visit: CHF Admit Date/Time: 11/10/19 18:07 Admit Provider: Matheus Melo Attending Provider: Matheus Melo Primary Care Provider: Lyubov Tee [facility] Course: , 79-year-old female with past medical history of paroxysmal atrial fibrillation, combined systolic and diastolic heart failure, essential hypertension, fibromyalgia chronic renal insufficiency, hyperlipidemia, GLADYS, who presented to the emergency department with 2 to 3 days of increasing dyspnea. She said the week prior to admission she had gone out shopping came home very fatigued and went to bed for 3 days and did not get up except to go the bathroom. She abruptly stopped taking her medications. She had no chest pain or pressure at the time. She has baseline dyspnea with prolonged physical activity but that her dyspnea had worsened since her shopping trip last week is progressed over the last 2 or 3 days to the point where she could just not catch her breath. She has had no fever or chills and no sputum production. She thinks she gained 5 or 6 pounds. Evaluation on admission included routine labs including CBC, coagulation studies, chemistries, serial troponins. Her admission CBC showed a stable chronic anemia with a hemoglobin of 11 g. Normal white cell count of 8900. Normal platelet count 268,000. Her INR on admission was therapeutic at 2.4. Her CMP on admission showed demonstrated BUN of 23 and a creatinine 1.25 with normal electrolytes. Blood lactate was normal at 1.2. Her troponin I level was elevated at 0.61 on admission and dropped overnight to 0.19. Her proBNP was elevated at 4400. Chest x-ray on admission demonstrated mild cardiomegaly and prominent pulmonary vasculature with indistinct interstitial infiltrates predominantly on the right with no effusions. This was read as being suspicious for pulmonary edema. Her EKG on admission showed a wide-complex tachycardia at a rate of 101 bpm but was reviewed by [facility] cardiology. Patient has a known incomplete left bundle branch block and was felt that the patient had paroxysmal rapid atrial fibrillation with aberrancy. Patient was initially treated with ceftriaxone and doxycycline and given 40 mg of IV Lasix in the emergency room for presumptive treatment of pneumonia and CHF. Subsequent CBCs failed to show a leukocytosis and her procalcitonin was less than 0.1. Her antibiotics were not continued upon admission as it was felt that she did not have an acute infectious process as there was an absence of fever and a normal procalcitonin level and no leukocytosis. Because of the elevated troponin levels cardiology was consulted and the patient was seen on November 11, [address] Matheus Mckeon. See his consult note for details. In summary he felt that her symptoms predated her discontinuing her medications and therefore he favored a type I non-STEMI infarct as opposed to a type II non-STEMI infarct. He felt she was fluid overloaded due to not taking her medications. He noted that the patient has had 2 stress tests in the past few years. Her last one performed at [facility] was from November 26, 2018 and was a nuclear MPI study that actually showed a small inferoapical perfusion defect suggestive of a small area of ischemia. At that time her left ventricular ejection fraction was 64%. Dr. Mckeon recommended that we continue to diurese her and get her back on her medications for her atrial fibrillation rate control. He did recommend a follow-up outpatient stress test once she is out of acute congestive heart failure. He recommended repeating her lipid panel and getting an echocardiogram during this admission. Echocardiogram was performed on November 11, 2019 and demonstrated preserved left ventricular function. She has mild LVH with normal LV segmental motion except for paradoxical septal motion which is probably from her bundle branch block. She had evidence of elevated filling pressures of her LV but her left ventricular ejection fraction was normal at 55 to 60%. RV is mildly dilated but appears to have normal RV systolic function. She has moderate mitral regurgitation and has thickened aortic valves but no significant aortic stenosis. She has biatrial enlargement. Treatment the hospital included resumption of her amiodarone and her metoprolol. There is some question about how she was taking her amiodarone. She indicated to me that she was taking 2 amiodarone tablets daily but her dose is supposed to be 200 mg once a day not 400 mg daily. We resume amiodarone at 200 mg daily. Her home dose of metoprolol tartrate is listed as 50 mg daily when in fact according to her decorating machine operator notes which is Dr. Raul Suero she supposed to be taking metoprolol succinate 50 mg daily. There is also some confusion about what her actual dose of warfarin is. According to Dr. Suero's note she is on warfarin 5 mg every other day alternating with warfarin 2.5 mg every other day. According the patient this changes from week to week and she was last on 5 mg 3 days a week and 2.5 mg 4 days a week. Serial INRs were performed throughout her hospital stay and she came in therapeutic at 2.4 but the time of discharge it dropped to as low as 1.5. During hospital stay she apparently was eating salads every day. Furthermore if she was taking higher dose of amiodarone then prescribed this also could have affected her INRs since we now have her on 200 mg daily. Throughout her hospital stay her rate has been well controlled since her first hospital day. When she first presented her heart rate was less than optimally controlled with a ventricular rate in the low 100s and up to as high as 157. Since resumption of amiodarone and Toprol-XL her heart rates have been in the 50s and 60s and her rhythm has been sinus with first-degree AV block and a bundle branch block. With respect to her heart failure she responded to the IV Lasix and then was switched back to her prescribed dose of furosemide 40 mg daily but had a setback in which she became more dyspneic and was exhibiting wheezes. She was put back on IV Lasix at 40 mg twice a day and has since diuresed. Her admission weight was 102.9 kg and she is dropped down to 100.2 kg. Her proBNP that was elevated at 4400 on admission dropped down to 345 on the day of discharge. She did demonstrate a slight rise in her chronic renal insufficiency. Her admission creatinine was 1.25 and patt to as high as 1.7 but on the day of discharge was 1.67. From looking at her prior creatinine levels as an outpatient her creatinine is varied between 1.2 and 1.8 with most of her readings being around 1.4-1.5. Her BUN as an outpatient is varied from the low 20s to the high 30s. At the time of discharge her BUN was 30. The night prior to discharge she was given warfarin 10 mg. I will have the patient take another 10 mg tonight but then check her INR tomorrow and call her PCP for further dosage adjustments. As far as rate control she will be discharged on amiodarone 200 mg daily. Here in the hospital she is been getting Lopressor 25 mg p.o. twice daily. I will resume her previous dose of Toprol-XL 50 mg once a day. Patient will be set up for an outpatient Lexiscan MPI study in the next 1 to 2 weeks. Home Meds and New Rx's Prescriptions: New nitroglycerin 0.4 mg tablet, sublingual 0.4 mg SL Q5-15M PRN (Reason: chest pain) Qty: 20 RF: 0 aspirin 81 mg tablet,delayed release (DR/EC) 81 mg PO DAILY Qty: 30 RF: 0 Continued tramadol [Ultram] 50 MG tablet 50 mg PO BID RF: 0 pantoprazole [Protonix] 40 MG tablet,delayed release (DR/EC) 40 mg PO DAILY RF: 0 hydroxychloroquine 200 MG tablet 200 mg PO DAILY RF: 0 Savella 50 MG tablet 50 mg PO BID RF: 0 atorvastatin [Lipitor] 20 mg Tablet 20 mg DAILY RF: 0 cholecalciferol (vitamin D3) [Vitamin D3] 1,000 unit Capsule 1,000 unit PO DAILY RF: 0 polyethylene glycol 3350 [Miralax] 17 gram Powder In Packet 17 g PO DAILY RF: 0 multivitamin with minerals [Multiple Vitamin-Minerals] Tablet 1 tab PO DAILY RF: 0 Changed furosemide 40 mg Tablet 40 mg PO BID Qty: 0 RF: 0 hydralazine 10 mg Tablet 10 mg PO TID Qty: 0 RF: 0 amiodarone [Pacerone] 200 mg Tablet 200 mg PO DAILY Qty: 0 RF: 0 amitriptyline 50 mg Tablet 50 mg PO DAILY Qty: 0 RF: 0 warfarin 5 mg Tablet 5 - 25 mg PO DAILY Qty: 0 RF: 0 metoprolol tartrate 50 mg Tablet 50 mg PO DAILY Qty: 0 RF: 0 loratadine 10 mg Tablet 10 mg PO DAILY PRN PRNQty: 0 RF: 0 Discontinued amitriptyline 50 MG tablet 50 mg PO HS PRN PRNRF: 0 albuterol sulfate 2.5 mg /3 mL (0.083 %) Solution For Nebulization 2.5 mg PRNRF: 0 esomeprazole magnesium 40 mg Capsule,Delayed Release(Dr/Ec) 40 mg PO DAILY RF: 0 albuterol sulfate 90 mcg/actuation Hfa Aerosol Inhaler INHALATION RF: 0 Discharge Instructions Additional Instructions: Call [facility] diagnostic imaging to obtain date and time of appointed stress test. Check your INR/prothrombin time daily for the next week. Call your primary care provider with the results for further instructions on adjustment of your warfarin dose. For tonight take 10 mg of warfarin then beginning tomorrow take 5 mg nightly with further adjustments based on your INR and your primary care provider's recommendations. Stand Alone Forms: Nursing Discharge Form Referrals: Lyubov Tee MD [Primary Care Provider] - (Please call Friday to make a follow up appointment. ) Activity:: Activity as Tolerated Equipment/Supplies:: No Equipment Needed Diet:: Low Sodium Discharge Orders Discharge Orders: Discharge Order (Routine); Ordered 11/14/19 Ordered By: Heber Vaz Other Ambulatory Orders: NM MPI rest & stress grp (Routine) Timeframe: 2 Weeks Facility: [facility] - Location: DIAGNOSTIC IMAGING Ordered By: Heber Vaz Discharge Data Discharge Date/Time-TO BE ENTERED AT DEPARTURE: 11/14/19 15:41 DS: Summary Status at Discharge Functional status at discharge: independent ambulation Overall status at discharge: patient is back to baseline Mental Status: mental status grossly normal Speech and Movement: speech and movement normal Mood: congruent mood Affect: normal affect Exam Narrative Exam Narrative: Elderly female who sitting up talking with her family in no respiratory distress. She is talking in full sentences not wearing any oxygen. Neck is without JVD. Lungs are clear to auscultation without wheezes rales or rhonchi. Heart is irregularly irregular at a controlled rate. No thrill or heave. Lower extremities show trace of edema Psych Mental Status: mental status grossly normal Speech and Movement: speech and movement normal Mood: congruent mood Affect: normal affect DS: Data Vitals/I&O Vitals and I&O: Vital Signs Temperature 36.5 C 11/14/19 07:20 Temperature Source Tympanic 11/14/19 07:20 Pulse 51 L 11/14/19 07:25 Pulse Rhythm Regular 11/14/19 09:05 Pulse 61 11/12/19 08:21 Respiratory Rate 18 11/14/19 07:20 Respiratory Effort Non-Labored 11/14/19 09:05 Respiratory Depth Normal 11/14/19 09:05 Respiratory Pattern Normal 11/14/19 09:05 Blood Pressure 121/77 11/14/19 07:20 Blood Pressure Mean 78 11/12/19 08:21 Blood Pressure Position Sitting 11/12/19 08:20 Pulse Oximetry 96 11/14/19 07:20 Oxygen Delivery Method Room Air 11/14/19 07:20 Oxygen Flow Rate 0 11/14/19 07:20 Pain Level 0 11/14/19 09:18 Intake & Output 11/13/19 11/14/19 11/14/19 23:59 11:59 23:59 Intake Total 360 / 360 Balance 360 / 360 Weight 100.2 kg Intake: Oral 360 / 360 Other: Urine Appearance Clear Clear Comment per patient Data Completed and Pending Labs on day of discharge: Labs from last 24 hours 11/14/19 11/14/19 09:24 06:59 PT 15.1 H INR 1.5 H Sodium 143 Potassium 4.3 Chloride 103 Carbon Dioxide 32.8 H Anion Gap 7.2 BUN 30 H Creatinine 1.67 H Estimated GFR/1.73 m2 29.67 Glucose 103 Calcium 8.6 NT-Pro-B Natriuret Pep 345 H Preliminary micro results at discharge 11/10/19 17:00 Blood Culture - Preliminary Blood NO GROWTH 72 HOURS 11/10/19 16:50 Blood Culture - Preliminary Blood NO GROWTH 72 HOURS [facility] Medical History Atrial fibrillation (Chronic) Depression (Chronic) Diverticulosis of colon (Acute) Fibromyalgia (Acute) Gastroesophageal reflux (Chronic) History of tobacco use (Acute) Hydronephrosis (Acute) Hyperlipidemia (Acute) Hypertension (Chronic) Intestinal adhesions (Acute) Respiratory infection (Acute) Systemic lupus erythematosus (Chronic) Surgical History History of hysterectomy (Chronic) History of partial colectomy (Acute) partial bowel resection-colectomy with colosotmy ad reversal, abdominal adhesions History of surgical removal of ganglion cyst (Acute) both wrists History of tonsillectomy and adenoidectomy (Acute) Hx of bilateral cataract extraction (Acute) Hx of section (Chronic) Hx of knee surgery (Acute) S/p bilateral carpal tunnel release (Acute) Social History Smoking/Tobacco Use Status: Former Tobacco Use Alcohol Intake: current Alcohol Intake frequency: holidays/special occasions only Drug use: Never Substance use type: does not use Details: quit smoking in 2006 for second time Do you feel safe at home: Yes Do you feel safe in your relationship?: Yes
--- NOTE | 2019-11-14 16:50 | PDOC.CMDIS ---
- If Service Date Differs Date of service: 11/14/19 Time of Service: 16:51 LACE Index Scoring Tool - Questions: Length of Stay (in days): 4 - 6 Acuity (Admit via E.D.?): Yes Comorbidities: Congestive Heart Failure, Connective Tissue Disease E.D. Visits: 2 - Answers: Total Score: 14 Risk of Readmission: High Risk Care Management Discharge Reason for Hospitalization: Acute congestive heart failure Discharge Plan: Chandni will be discharged home with no new services. She will follow-up with her PCP and discharge plan of care. She will transport via private vehicle with her son. Patient/Family Education Needs: Discharge education, limitations, medications, follow-up plan of care, self-management and asked me 3.
== END 2019-11-14 15:41 | disposition home or self-care (01) | DRG 280 ==
LOC: ER 18:28 → ICU 19:18 → MS 11-12 09:31 → ICU 11-17 11:16
PROVIDERS: Internal Medicine; Admitting Provider General Practice; Emergency Provider Student in an Organized Health Care Education/Training Program; PCP Family Medicine; Visit Provider Internal Medicine
DX: I21.4 Non-ST elevation (NSTEMI) myocardial infarction (principal); I50.33 Acute on chronic diastolic (congestive) heart failure; I13.0 Hypertensive heart and chronic kidney disease with heart failure and stage 1 through stage 4 chronic kidney disease, or unspecified chronic kidney disease; I50.22 Chronic systolic (congestive) heart failure; I44.7 Left bundle-branch block, unspecified; I44.0 Atrioventricular block, first degree; I48.0 Paroxysmal atrial fibrillation; E87.70 Fluid overload, unspecified; Z91.128 Patient's intentional underdosing of medication regimen for other reason; J98.01 Acute bronchospasm; N18.9 Chronic kidney disease, unspecified; E78.5 Hyperlipidemia, unspecified; G47.33 Obstructive sleep apnea (adult) (pediatric); D53.9 Nutritional anemia, unspecified; I34.0 Nonrheumatic mitral (valve) insufficiency; Z66 Do not resuscitate; K21.9 Gastro-esophageal reflux disease without esophagitis; L93.0 Discoid lupus erythematosus
CPT/HCPCS: 36415; 80048; 80053; 80061; 84145; 87040; 87449; 93005; 93306; 96361; 96365; 96375; 99222; 99232; 99233; 99239; 99254; 99285; 71045; 81003; 81015; 83605; 83735; 83880; 84443; 84484; 85025; 85610; 87086; 93010; 94640; J0696; J1940; J7620

== ENCOUNTER → 2019-11-11 07:55 | Outpatient (BNVA) | payer MEDICARE, OTHER, SELFPAY | PROVIDERS: PCP Family Medicine; Referring Provider Family Medicine; Visit Provider Internal Medicine Cardiovascular Disease | DX: R69 Illness, unspecified (principal) ==

== ENCOUNTER 2019-11-30 12:58 | Outpatient (REF) | payer MEDICARE, OTHER, SELFPAY ==
[2019-11-30 21:38] LABS: HCT 34.5 % (36.0-46.0); HGB 10.5 g/dL (12.0-15.5)
[2019-11-30 21:43] LABS: Anion Gap 8.2 mmol/L (3-11); BUN 22 mg/dL (7-18); CO2 31.8 mmol/L (21.0-32.0); CREATININE 1.62 mg/dL (0.55-1.02); Calcium 8.9 mg/dL (8.5-10.1); Chloride 104 mmol/L (98-107); Estimated GFR 30.73 (mL/min/1.73m2); Glucose 94 mg/dL (74-106); NT-proBNP 373 pg/mL (<300); Potassium 4.3 mmol/L (3.5-5.1); Sodium 144 mmol/L (136-145)
== END 2019-11-30 13:18 ==
LOC: NCHCN 12:58
PROVIDERS: PCP Family Medicine; Visit Provider Family Medicine
DX: D64.9 Anemia, unspecified (principal); I50.9 Heart failure, unspecified; R09.02 Hypoxemia
CPT/HCPCS: 80048; 83880; 85014; 85018

== ENCOUNTER 2019-12-06 01:15 | Outpatient (CLI) | payer MEDICARE, OTHER, SELFPAY ==
--- NOTE | 2019-12-06 06:30 | DI.NM_ITS ---
APPROVED REPORT Exam: Pharmacologic Patient Location: Out-Patient Room/Bed: Stress Nurse: Janell Francis RN BMI: 36.95 Baseline Rhythm: LBBB. 1st degree AVB. Medical History Medical History: Angina, Atrial Fibrillation, CAD s/p PA, CHF, COPD, HTN, Hyperlipidemia, Obstructive sleep apnea Cardiac Medications: Warfarin. Nitroglycerin. Metoprolol tartrate. Hydralzine. Furosemide. Aspirin. A torvastatin. Amiodarone. Allergies: Sulfa Cardiac Risk Factors: HTN, Hyperlipidemia, COPD Pretest Chest Pain Characteristics: Non-exertional Chest pain Exercise History: physical therapy 2 times a week Lung Sounds: Clear to auscultation Heart Sounds: Murmur Stress Test Details Test: Pharmacologic stress testing performed using 0.4 mg of regadenoson per 5 mL given IV over 10 s econds. Nuclear Acquisition: Rest Tc-99m/Stress Tc-99m 1 day Rest Isotope: Tc-99m Sestamibi. Dose: 11.0 Date: 12/06/2019 Injection Time: 0845 Stress Isotope: Tc-99m Sestamibi. Dose: 36.0 Date: 12/06/2019 Injection Time: 0950 HR Resting HR Supine: 55 bpm Max Heart Rate (APMHR): 142 bpm Target HR (85% APMHR): 120 bpm Max HR Achieved: 66 bpm % of APMHR: 46 Recovery HR: 63 bpm HR response to stress: Normal HR response to stress BP Resting BP Supine: 180/72 mmHg Max BP: 180/72 mmHg Recovery BP: 150/70 mmHg BP response to stress: Normal blood pressure response to stress. ECG Resting ECG: LBBB, 1st degree AV block Stress ECG: LBBB, 1st degree AV block ST Change: Nondiagnostic - LBBB Recovery ECG: LBBB, 1st degree AV block Recovery ST Change: Nondiagnostic - LBBB Clinical Stress Symptoms: Chest heaviness 1 minute post lexiscan injection. Stress ECG Conclusion 1. Electrocardiographically nondiagnostic due to resting EKG abnormalities (LBBB) and an adequate hea rt rate achieved Protocol Used: Regadenoson Stress Test Summary STAGE Time (mins) Speed (mph) Grade (%) HR BP SYMPTOMS METS Supine 55 180/72 1 min post Lexiscan injection 66 156/68 chest heaviness 3 min post Lexiscan injection 64 156/68 6 min post Lexiscan injection 63 150/70 chest heaviness subsided MPI Conclusion Myocardial perfusion is negative for significant ischemia. There is apical thinning
[2019-12-06] MEDS: Regadenoson 0.4 MG/5 ML SYR IVP (10:28)
== END 2019-12-06 01:35 ==
PROVIDERS: PCP Family Medicine; Visit Provider Family Medicine
DX: I25.10 Atherosclerotic heart disease of native coronary artery without angina pectoris (principal); I44.7 Left bundle-branch block, unspecified; I25.2 Old myocardial infarction; I48.91 Unspecified atrial fibrillation; R06.02 Shortness of breath; I50.9 Heart failure, unspecified; I10 Essential (primary) hypertension; E78.5 Hyperlipidemia, unspecified; J44.9 Chronic obstructive pulmonary disease, unspecified
CPT/HCPCS: 78452; 93016; 93018; 93017; J2785

== ENCOUNTER 2020-02-13 06:27 | Inpatient (IN) | payer MEDICARE, OTHER, SELFPAY ==
[2020-02-13] VITALS (21 sets, daily range): BP systolic 83–157; BP diastolic 36–72; PULSE 77–103; RESP 11–25; TEMP 37.2–37.7; O2SAT 88–100
--- NOTE | 2020-02-13 06:51 | ED.GENADUL_ITS ---
Discharge Plan Disposition Patient Disposition: [facility] INPATIENT Condition: Stable Discharge Details Chief Complaint: SOB Clinical Impression: Acute diastolic CHF (congestive heart failure), Shortness of breath Primary Care Provider: Lyubov Tee V ED Provider: Mirza Yanes Home Meds and New Rx's Prescriptions: No Action tramadol [Ultram] 50 MG tablet 50 mg PO BID RF: 0 pantoprazole [Protonix] 40 MG tablet,delayed release (DR/EC) 40 mg PO DAILY RF: 0 hydroxychloroquine 200 MG tablet 200 mg PO DAILY RF: 0 Savella 50 MG tablet 50 mg PO BID RF: 0 atorvastatin [Lipitor] 20 mg Tablet 20 mg DAILY RF: 0 nitroglycerin 0.4 mg tablet, sublingual 0.4 mg SL Q5-15M PRN (Reason: chest pain) Qty: 20 RF: 0 aspirin 81 mg tablet,delayed release (DR/EC) 81 mg PO DAILY Qty: 30 RF: 0 furosemide 40 mg Tablet 40 mg PO BID Qty: 0 RF: 0 hydralazine 10 mg Tablet 10 mg PO TID Qty: 0 RF: 0 amiodarone [Pacerone] 200 mg Tablet 200 mg PO DAILY Qty: 0 RF: 0 amitriptyline 50 mg Tablet 50 mg PO DAILY Qty: 0 RF: 0 warfarin 5 mg Tablet 5 - 25 mg PO DAILY Qty: 0 RF: 0 metoprolol tartrate 50 mg Tablet 50 mg PO DAILY Qty: 0 RF: 0 loratadine 10 mg Tablet 10 mg PO DAILY PRN PRNQty: 0 RF: 0 cholecalciferol (vitamin D3) [Vitamin D3] 1,000 unit Capsule 1,000 unit PO DAILY RF: 0 polyethylene glycol 3350 [Miralax] 17 gram Powder In Packet 17 g PO DAILY RF: 0 multivitamin with minerals [Multiple Vitamin-Minerals] Tablet 1 tab PO DAILY RF: 0 Medical Decision Making 79-year-old female with past medical history of paroxysmal atrial fibrillation, combined systolic and diastolic heart failure, essential hypertension, fibromyalgia chronic renal insufficiency, hyperlipidemia, GLADYS, who comes in with chief complaints of shortness of breath for a few days. Denies any chest pain, pressure, no known fevers at home but does have a temp here to 99.8. She denies any cough as well. She is in no distress HD stable on exam and has diminished breath sounds at the bases bilaterally with pitting edema of both legs to the mid tibia. Suspect part of her symptoms are due to chf and will give a dose of lasix. Her low grade temp is concerning for possible pna vs influenza vs covid 19 and on room air is in the mid 80's. Will obtain lab work and cxr and monitor. labs show elevated probnp and troponin 0.08 which is down from when she was here in October. She remains stable and xray shows continued right lung base airspace disease and given this finding and her temperature will treat as CAP and also test for influenza and covid19 and given her age, need for o2 admit to the hospitlist Differential Diagnosis Differential Diagnosis: chf, pna, influenza, covid 19 Medical Records Medical records reviewed: Yes I reviewed the patient's medical records. Imaging Data Radiologic Study: Attestation: I personally reviewed and interpreted this imaging study as follows: Imaging: X-Ray My impression: chf, right lower lobe infiltrate Lab Data Lab results reviewed: Yes I reviewed the patient's lab results. ECG Data Attestation: I personally reviewed and interpreted this ECG (s) as follows: Prior ECG tracings: not available for review Interpretation: sinus rhythm, rate of 84, qtc [address] t wave ischemic findings HPI General Mode of arrival: EMS . Date/Time Provider Initiated Documentation: 02/13/20 06:30 . Limitations to Documentation: no limitations . Information obtained by: patient . History of Present Illness 79 year old F presents to the emergency department with the chief complaint of shortness of breath, described as moderate, and it has been constant. No relieving factors improve symptom(s), No exacerbating factors reported . Patient did receive the following treatments prior to arrival, none Related Data Home Medications Medication Instructions Recorded Confirmed Savella 50 mg PO BID 11/24/17 11/10/19 hydroxychloroquine 200 mg PO DAILY 11/24/17 11/10/19 pantoprazole [Protonix] 40 mg PO DAILY 11/24/17 11/10/19 tramadol [Ultram] 50 mg PO BID 11/24/17 11/10/19 atorvastatin [Lipitor] 20 mg DAILY 05/17/19 11/10/19 cholecalciferol (vitamin D3) 1,000 unit PO DAILY 08/26/19 11/10/19 [Vitamin D3] multivitamin with minerals 1 tab PO DAILY 08/26/19 08/27/19 [Multiple Vitamin-Minerals] polyethylene glycol 3350 [Miralax] 17 g PO DAILY 08/26/19 11/10/19 amiodarone [Pacerone] 200 mg PO DAILY #0 tab 11/14/19 11/10/19 amitriptyline 50 mg PO DAILY #0 tab 11/14/19 11/10/19 aspirin 81 mg PO DAILY #30 tab 11/14/19 furosemide 40 mg PO BID #0 tab 11/14/19 11/10/19 hydralazine 10 mg PO TID #0 tab 11/14/19 11/10/19 loratadine 10 mg PO DAILY PRN PRN #0 tab 11/14/19 metoprolol tartrate 50 mg PO DAILY #0 tab 11/14/19 11/10/19 nitroglycerin 0.4 mg SL Q5-15M PRN #20 tab 11/14/19 warfarin 5 - 25 mg PO DAILY #0 tab 11/14/19 11/10/19 Previous Rx's Medication Instructions Recorded amiodarone [Pacerone] 200 mg PO DAILY #0 tab 11/14/19 amitriptyline 50 mg PO DAILY #0 tab 11/14/19 aspirin 81 mg PO DAILY #30 tab 11/14/19 furosemide 40 mg PO BID #0 tab 11/14/19 hydralazine 10 mg PO TID #0 tab 11/14/19 loratadine 10 mg PO DAILY PRN PRN #0 tab 11/14/19 metoprolol tartrate 50 mg PO DAILY #0 tab 11/14/19 nitroglycerin 0.4 mg SL Q5-15M PRN #20 tab 11/14/19 warfarin 5 - 25 mg PO DAILY #0 tab 11/14/19 Allergies Allergy/AdvReac Type Severity Reaction Status Date / Time Sulfa (Sulfonamide Allergy Unverified 02/13/20 07:10 Antibiotics) cat scan dye AdvReac Uncoded 02/13/20 07:[address]: 3 Review of Systems All systems reviewed & are unremarkable except as noted in HPI and below Constitutional Constitutional: Denies chills and Denies fever(s) Cardiovascular Cardiovascular: Denies chest pain Respiratory Respiratory: Denies cough Gastrointestinal Gastrointestinal: Denies abdominal pain, Denies nausea and Denies vomiting Musculoskeletal Musculoskeletal: Denies joint swelling PFSH Social History Smoking/Tobacco Use Status: Former Tobacco Use Alcohol Intake: current Alcohol Intake frequency: holidays/special occasions only Drug use: Never Substance use type: does not use Details: quit smoking in 2006 for second time Do you feel safe at home: Yes Do you feel safe in your relationship?: Yes Exam Const General: no acute distress Orientation: alert HENMT Head: normal to inspection Ears: external ears normal General nose exam: external nose normal Mouth: moist mucous membranes Eyes General: appearance normal, both eyes and all related structures Neck Neck: normal visual inspection Resp Effort & Inspection: normal respiratory effort and able to speak in complete sentences Cardio Rate: regular rate Skin General skin exam: no rashes or lesions noted Neuro General: patient alert and patient oriented x3 Extrem General: normal to inspection Psych Mental Status: mental status grossly normal Course Lab/Test Results Lab/Test Results: 02/13/20 06:25 Blood Blood Culture - Pending 02/13/20 06:25 Blood Blood Culture - Pending
[2020-02-13 06:58] LABS: Abs Immature Grans 0.02 k/cumm (0.0-0.09); Absolute Basophil Count 0.01 k/cumm (0.0-0.2); Absolute Eosinophil Count 0.01 k/cumm (0.0-0.7); Absolute Lymphocyte Count 0.61 k/cumm (1.2-3.4); Absolute Monocyte Count 1.12 k/cumm (0.11-0.7); Absolute Neutrophil Count 8.27 k/cumm (1.2-6.7); BE (Venous) 4.6 mmol/L (-3-3); Basophils % 0.1; Eosinophils % 0.1; HCO3 (Venous) 29 mmol/L (22-28); HCT 31.8 % (36.0-46.0); HGB 10.1 g/dL (12.0-15.5); Immature Grans % 0.2 %; Lymphocytes % 6.1; Mean Corp. HGB Concentration 31.8 g/dL (32.0-36.0); Mean Corpuscular Hemoglobin 30.1 pg (27.0-33.0); Mean Corpuscular Volume 94.6 fL (80-95); Mean Platelet Volume 9.6 fL (8.0-11.0); Monocytes % 11.2; Neutrophils % 82.3; O2 Sat (Venous) 82 % (70-80); Platelet Count 225 x1000/uL (130-400); RBC 3.36 m/cumm (4.00-5.20); RBC Distribution Width 14.1 % (11.7-14.6); TCO2 (Venous) 27 mmol/L (22-29); White Blood Cell Count 10.04 k/cumm (4.4-10.8); pCO2 (Venous) 43 mm/Hg (34-47); pH (Venous) 7.43 (7.35-7.45); pO2 (Venous) 43 mm/Hg (28-44)
--- NOTE | 2020-02-13 07:10 | DI.RAD_ITS ---
EXAM: XR PORTABLE CHEST AP CLINICAL HISTORY: shortness of breath TECHNIQUE: 2D digital imaging was performed. COMPARISON: XR PORTABLE CHEST AP from 11/10/2019 FINDINGS: MEDIASTINUM: Normal. HEART: Normal. PULMONARY VASCULATURE: Normal. LUNGS: Increased lung markings in the right base. No focal consolidating infiltrate. PLEURAL SPACE: No pleural effusion or pneumothorax. BONE:Degenerative changes. OTHER FINDINGS:Normal. IMPRESSION: Increased lung markings in the right base. This may represent atelectasis, scarring or pneumonia. DATA REPOSITORY: RADIATION DOSE DELIVERED:
[2020-02-13 07:14] LABS: PTT Activated 45.9 sec (21.0-31.4); Prothrombin Time 40.7 sec (9.3-11.0)
[2020-02-13 07:17] LABS: INR 4.2 (0.9-1.1)
[2020-02-13 07:21] LABS: ALT 39 U/L (14-59); AST 27 U/L (15-37); Albumin 3.3 g/dL (3.4-5.0); Alkaline Phosphatase 84 U/L (46-116); BUN 27 mg/dL (7-18); Bilirubin, Total 0.8 mg/dL (0.2-1.0); CREATININE 1.46 mg/dL (0.55-1.02); Calcium 8.5 mg/dL (8.5-10.1); Chloride 103 mmol/L (98-107); Estimated GFR 34.65 (mL/min/1.73m2); Glucose 134 mg/dL (74-106); NT-proBNP 1270 pg/mL (<300); Potassium 4.1 mmol/L (3.5-5.1); Sodium 137 mmol/L (136-145); Total Protein 6.6 g/dL (6.4-8.2)
[2020-02-13 07:23] LABS: Troponin I 0.08 ng/Ml (<0.06)
[2020-02-13] MEDS: Furosemide 40 MG/4 ML VIAL 80 MG IVP (07:30)
--- NOTE | 2020-02-13 07:35 | DI.VRAD_ITS ---
PROCEDURE INFORMATION: Exam: XR Chest, 1 View Exam date and time: 02/13/2020 7:05 AM Age: 79 years old Clinical indication: Shortness of breath; Patient HX: SOB, pui for covid-19. TECHNIQUE: Imaging protocol: XR of the chest Views: 1 view. COMPARISON: CR XR PORTABLE CHEST AP 11/10/2019 2:44 PM FINDINGS: Lungs: . No consolidation. Subtle residual airspace disease right lung base Pleural space: Unremarkable. No pleural effusion. No pneumothorax. Heart/Mediastinum: Unremarkable. No cardiomegaly. Bones/joints: Unremarkable. IMPRESSION: Improved aeration within the right lower lobe versus middle lobe. Dictated and Authenticated by: Topher Degroot MD. Ordering:SINTIA Blue MD
[2020-02-13] MEDS: Aspirin 81 MG CHEW 324 MG CH (07:49)
[2020-02-13] MEDS: cefTRIAXone 2 GM/50 ML BAG IVPB (07:50)
[2020-02-13 08:09] LABS: C-Reactive Protein 10.84 mg/dL (0.0-0.3)
[2020-02-13] MEDS: DOXYCYCLINE 100 MG in Normal Saline 100 ML IVPB ×2 (08:11→21:23)
--- NOTE | 2020-02-13 08:16 | NUR.NOTE ---
patient's son, Bin notified that mother is being admitted.
[2020-02-13 08:31] LABS: D-Dimer 1191 ng/mlFEU (<500)
[2020-02-13 08:49] LABS: Procalcitonin < 0.1 ng/mL
[2020-02-13] MEDS: Ipratropium/Albuterol 4 GM 120 PUFF INH IH ×3 (12:09→21:39)
--- NOTE | 2020-02-13 14:55 | W.PM.HP.N ---
Date of service: 02/13/20 Time of Service: 14:55 Assessment and Plan Assessment and plan (1) Acute on chronic diastolic CHF (congestive heart failure), NYHA class 1: Status: Acute Assessment and plan: My impression is that Ms Lopez is not very compliant with her dietary restrictions, admitting to both having fish rangel recently as well as a pepperoni sandwich and drinking lots of water. Consult nutrition. Meanwhile, continue to diurese - writing for lasix 60 mg IV BID. (2) CAP (community acquired pneumonia): Status: Suspected Assessment and plan: Looking at patient's CXR, R lung infiltrate was previously present. The patient likely does not truly have PNA. However, will treat her with abx x 48 hrs for now - tx may be extended if spikes a fever/clinically worsens. Continue empiric doxycycline/ceftriaxone started in ED. (3) Elevated troponin: Status: Acute Assessment and plan: I do not think this represents a true ACS and likely has to do with fluid status. (4) Suspected COVID-19 virus infection: Status: Acute Assessment and plan: The patient is a PUI given possible exposure, but clinically does not appear to be behavior as COVID-19. Await COVID-19 testing (5) Paroxysmal atrial fibrillation: Status: Chronic Assessment and plan: Monitor on tele. Hold coumadin given supratherapeutic INR. Continue amiodarone. (6) Chronic respiratory failure with hypoxia: Status: Acute Assessment and plan: It sounds like the patient does not wear oxygen 24/7 - only using it as needed. We will have to reevaluate this prior to discharge as I have a suspicion that the patient might also have nocturnal hypoxia and may not be aware of hypoxia. (7) Pulmonary hypertension: Status: Acute Assessment and plan: Diurese. If has not had a sleep study as outpatient, this is advised. (8) Normocytic anemia: Status: Inactive Assessment and plan: Stable. Check hemoccult, iron studies given that ferritin was previously on the lower side and she is on anticoagulation (9) Supratherapeutic INR: Status: Acute Assessment and plan: hold coumadin and recheck in am. No active bleeding, but will monitor for signs. (10) Fall: Status: Acute Assessment and plan: Especially concerning given the fact that the patient states this happens to her quite a bit - and that she is on anticoagulation. Will need PT eval. (11) Ambulatory dysfunction: Status: Acute Assessment and plan: As above - consult PT (12) Discharge planning issues: Status: Acute Assessment and plan: Patient changed her code status to DNI and is interested in having chest compressions. Will also consult palliative care. (13) DVT prophylaxis: Status: Acute Assessment and plan: On coumadin - INR supratherapeutic History of Present Illness History of Present Illness Chief Complaint: shortness of breath Narrative: Ms Lopez is a 79 year old female with PMHx of chronic diastolic CHF, paroxysmal Afib on coumadin, chronic hypoxic respiratory failure on 2 L of O2 prn, pulmonary hypertension, SLE, who was brought in to [facility] ED by ambulance this morning for shortness of breath. The patient states that she felt kind of dizzy all day yesterday. She states she has felt that her mouth was dry from wearing oxygen and so she had been drinking lots of water, also admitting to recently indulging in a pepperoni sandwich, which was salty. Last night she started to feel short of breath, especially so when she tried to go back to bed, noting that she felt more short of breath than normal sleeping on her usual one pillow, now requiring 2 pillows and a wedge. She called an ambulance once, received a nebulizer treatment, felt better, and did not proceed to the hospital. Later, she felt dizzy and fell to the ground, landing on her buttocks on a carpeted surface, but not hitting her head or losing consciousness, which was followed by an episode of nausea and nonbloody vomiting, without abdominal pain or diarrhea. EMS were called again and took the patient to the ED. She states that she measures here oxygen saturations at home - she does note that it sometimes drops to mid 80's, not clearly associated with whether or not she is on the oxygen at the time. She states her heart rates at home have not been higher than 100. Denies fevers, chills, states her nose is always runny because of home oxygen, denies sore throat, loss of sense of smell or taste, endorses a feeling of squeezing around the bottom of her chest - mostly when she sits in her recliner, not now; denies nausea currently, ever having abdominal pain, blood in emesis or stool. She did not take her coumadin last night. In the ED, she was found to be in CHF, requiring IV lasix 80 mg, with significant clinical improvement. There was an infiltrate reported at [facility], for which the patient was initiated on doxycycline and ceftriaxone. We were asked to admit the patient for further care. 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 Her son, who visited her yesterday, is the father of her granddaughter, whose groupmate in daycare has a COVID positive parent. Review of Systems Narrative: 12 systems reviewed. Pertinet positives and negatives are as per HPI. Additionally, she reports that her RLE gets more swollen than the left, which is chronic for her. [facility] Medical History Atrial fibrillation (Chronic) Depression (Chronic) Diverticulosis of colon (Acute) Fibromyalgia (Acute) Gastroesophageal reflux (Chronic) History of tobacco use (Acute) Hydronephrosis (Acute) Hyperlipidemia (Acute) Hypertension (Chronic) Intestinal adhesions (Acute) Respiratory infection (Acute) Systemic lupus erythematosus (Chronic) Surgical History History of hysterectomy (Chronic) History of partial colectomy (Acute) partial bowel resection-colectomy with colosotmy ad reversal, abdominal adhesions History of surgical removal of ganglion cyst (Acute) both wrists History of tonsillectomy and adenoidectomy (Acute) Hx of bilateral cataract extraction (Acute) Hx of section (Chronic) Hx of knee surgery (Acute) S/p bilateral carpal tunnel release (Acute) Family History Father Heart disease Diabetes Mother Heart disease Hypertension Social History Smoking/Tobacco Use Status: Former Tobacco Use Alcohol Intake: current Alcohol Intake frequency: holidays/special occasions only Drug use: Never Substance use type: does not use Details: quit smoking in 2006 for second time Do you feel safe at home: Yes Do you feel safe in your relationship?: Yes Meds Home Medications and Allergies Home Medications Medication Instructions Recorded Confirmed Type Savella 50 mg PO BID 11/24/17 02/13/20 History hydroxychloroquine 200 mg PO DAILY 11/24/17 02/13/20 History pantoprazole [Protonix] 40 mg PO DAILY 11/24/17 02/13/20 History tramadol [Ultram] 50 mg PO BID 11/24/17 02/13/20 History atorvastatin [Lipitor] 20 mg DAILY 05/17/19 02/13/20 History cholecalciferol (vitamin D3) 1,000 unit PO DAILY 08/26/19 02/13/20 History [Vitamin D3] multivitamin with minerals 1 tab PO DAILY 08/26/19 02/13/20 History [Multiple Vitamin-Minerals] polyethylene glycol 3350 [Miralax] 17 g PO DAILY 08/26/19 02/13/20 History amiodarone [Pacerone] 200 mg PO DAILY #0 tab 11/14/19 02/13/20 Rx aspirin 81 mg PO DAILY #30 tab 11/14/19 02/13/20 Rx hydralazine 10 mg PO TID #0 tab 11/14/19 02/13/20 Rx loratadine 10 mg PO DAILY PRN PRN #0 tab 11/14/19 02/13/20 Rx metoprolol tartrate 50 mg PO DAILY #0 tab 11/14/19 02/13/20 Rx nitroglycerin 0.4 mg SL Q5-15M PRN #20 tab 11/14/19 02/13/20 Rx warfarin 5 - 25 mg PO DAILY #0 tab 11/14/19 02/13/20 Rx albuterol sulfate 2.5 mg CONTINUOUS NEBULIZATION 02/13/20 History albuterol sulfate [ProAir HFA] 90 mcg INHALATION 02/13/20 History amitriptyline 50 mg PO HS 02/13/20 02/13/20 History docusate calcium 240 mg PO BID 02/13/20 02/13/20 History furosemide 80 mg PO BID 02/13/20 02/13/20 History meclizine 12.5 mg PO BID PRN 02/13/20 02/13/20 History pramipexole [Mirapex] 0.125 mg PO DAILY 02/13/20 02/13/20 History vitamin [id number] acid 1,000 laine SUBLINGUAL DAILY 02/13/20 02/13/20 History Allergies Allergy/AdvReac Type Severity Reaction Status Date / Time Sulfa (Sulfonamide Allergy Unverified 02/13/20 07:10 Antibiotics) cat scan dye AdvReac Uncoded 02/13/20 07:10 Exam Narrative Exam Narrative: General: Pleasant, talkative elderly female, who appears to have no difficulty talking in multiple lenghty sentences in a row while wearing a mask and laying nearly flat in bed, A&OX3, Atraumatic Neurological: A&Ox3, no focal deficits Psychiatric: appropriate speech pattern/content Skin: visible skin intact, no bruising noted HEENT: Atraumatic, normocephalic, EOMI, patient is wearing a mask - cannot examine mucuous membranes, coughs occasionally/clears throat, +goiter, no JVD/sumbandibular/cervical lymphadenopathy Cardiovascular: irregularly irregular rhythm, no m/r/g Lungs: crackles/coarse breath sounds at B bases Gastrointestinal: soft, nontender, nondistended Genitourinary: dferred Extremities: +1 BLE edema, appears symmetric, no c/c. 1+ pedal pulses B; L TKR incision is well healed. Results Imaging Additional studies: EKG: NSR, HR 84, no acute ischemia, nonspecific ST-T changes especially in inferiorlateral leads Labs Result diagrams: 02/13/20 06:45 02/13/20 06:45 Labs: Laboratory Results - last 24 hr 02/13/20 02/13/20 02/13/20 06:25 06:25 06:45 WBC RBC Hgb Hct MCV MCH MCHC RDW Plt Count MPV Immature Gran % Neutrophils % Lymphocytes % Monocytes % Eosinophils % Basophils % Absolute Neutrophils Absolute Lymphocytes Absolute Monocytes Absolute Eosinophils Absolute Basophils PT INR APTT D-Dimer 1191 H VBG pH VBG pCO2 VBG pO2 VBG HCO3 VBG Total CO2 VBG O2 Saturation VBG Base Excess Sodium 137 Potassium 4.1 Chloride 103 Carbon Dioxide 28.0 Anion Gap 6.0 BUN 27 H Creatinine 1.46 H Estimated GFR/1.73 m2 34.65 Glucose 134 H Calcium 8.5 Magnesium 2.0 Total Bilirubin 0.8 AST 27 ALT 39 Alkaline Phosphatase 84 Troponin I 0.08 H* C-Reactive Protein 10.84 H NT-Pro-B Natriuret Pep 1270 H Total Protein 6.6 Albumin 3.3 L Procalcitonin 04/26/20 04/26/20 04/26/20 06:45 06:45 06:45 WBC 10.04 RBC 3.36 L Hgb 10.1 L Hct 31.8 L MCV 94.6 MCH 30.1 MCHC 31.8 L RDW 14.1 Plt Count 225 MPV 9.6 Immature Gran % 0.2 Neutrophils % 82.3 Lymphocytes % 6.1 Monocytes % 11.2 Eosinophils % 0.1 Basophils % 0.1 Absolute Neutrophils 8.27 H Absolute Lymphocytes 0.61 L Absolute Monocytes 1.12 H Absolute Eosinophils 0.01 Absolute Basophils 0.01 PT 40.7 H INR 4.2 H* APTT 45.9 H D-Dimer VBG pH 7.43 VBG pCO2 43 VBG pO2 43 VBG HCO3 29 H VBG Total CO2 27 VBG O2 Saturation 82 H VBG Base Excess 4.6 H Sodium Potassium Chloride Carbon Dioxide Anion Gap BUN Creatinine Estimated GFR/1.73 m2 Glucose Calcium Magnesium Total Bilirubin AST ALT Alkaline Phosphatase Troponin I C-Reactive Protein NT-Pro-B Natriuret Pep Total Protein Albumin Procalcitonin 02/13/20 02/13/20 02/13/20 07:48 07:50 09:40 WBC RBC Hgb Hct MCV MCH MCHC RDW Plt Count MPV Immature Gran % Neutrophils % Lymphocytes % Monocytes % Eosinophils % Basophils % Absolute Neutrophils Absolute Lymphocytes Absolute Monocytes Absolute Eosinophils Absolute Basophils PT INR APTT D-Dimer VBG pH VBG pCO2 VBG pO2 VBG HCO3 VBG Total CO2 VBG O2 Saturation VBG Base Excess Sodium Potassium Chloride Carbon Dioxide Anion Gap BUN Creatinine Estimated GFR/1.73 m2 Glucose Calcium Magnesium Total Bilirubin AST ALT Alkaline Phosphatase Troponin I Cancelled 0.10 H* C-Reactive Protein NT-Pro-B Natriuret Pep Total Protein Albumin Procalcitonin < 0.1 Last Vital Signs Temp 37.2 C 02/13/20 09:30 Pulse 78 02/13/20 09:30 Resp 22 02/13/20 09:30 BP 134/63 02/13/20 09:30 Pulse Ox 98 02/13/20 12:15 COVID-19 Screening Traveled to [place] from one of the affected countries or regions?: NO Recent travel in the [place] within the last 14 days?: No Recent out of the country travel within the last 14 days?: No Exposure or possible exposure to illness during travel?: No Had IN PERSON contact w/suspected or confirmed C-19 person: No Have you had the following symptoms in the past few days?: Yes Symptoms noted since travel?: Fever Medical treatment received for symptoms/illness related to travel?: pt admits to going to the pet and grocery store.
[2020-02-13] MEDS: Furosemide 100 MG/10 ML VIAL 60 MG IVP (16:34)
[2020-02-13] MEDS: Normal Saline Flush 10 ML SYR IVP ×2 (16:36→23:13)
[2020-02-13 17:36] LABS: Troponin I 0.07 ng/Ml (<0.06)
[2020-02-13] MEDS: Amiodarone 200 MG TAB PO (17:50)
[2020-02-13] MEDS: hydrALAZINE 10 MG TAB PO (21:20)
[2020-02-13] MEDS: Pramipexole 0.25 MG TAB 0.125 MG PO (21:20)
[2020-02-13] MEDS: Amitriptyline 50 MG TAB PO (21:20)
[2020-02-13] MEDS: traMADol 50 MG TAB PO (21:20)
[2020-02-13] MEDS: Docusate Sodium 100 MG CAP PO (21:20)
[2020-02-14] VITALS (10 sets, daily range): BP systolic 113–145; BP diastolic 52–77; PULSE 61–96; RESP 17–20; TEMP 36.6–37.3; O2SAT 91–100
[2020-02-14 06:42] LABS: Abs Immature Grans 0.01 k/cumm (0.0-0.09); Absolute Basophil Count 0.01 k/cumm (0.0-0.2); Absolute Monocyte Count 0.83 k/cumm (0.11-0.7); Basophils % 0.2; Eosinophils % 1.6; HCT 31.7 % (36.0-46.0); Immature Grans % 0.2 %; Mean Corp. HGB Concentration 31.5 g/dL (32.0-36.0); Mean Corpuscular Volume 95.2 fL (80-95); Monocytes % 13.6; Neutrophils % 66.4; Platelet Count 215 x1000/uL (130-400); RBC 3.33 m/cumm (4.00-5.20); RBC Distribution Width 14.3 % (11.7-14.6); White Blood Cell Count 6.12 k/cumm (4.4-10.8)
[2020-02-14 06:46] LABS: Absolute Neutrophil Count 4.06 k/cumm (1.2-6.7)
[2020-02-14 06:48] LABS: Prothrombin Time 29.6 sec (9.3-11.0)
[2020-02-14 06:58] LABS: ALT 21 U/L (14-59); AST 28 U/L (15-37); Alkaline Phosphatase 72 U/L (46-116); Anion Gap 5.8 mmol/L (3-11); BUN 26 mg/dL (7-18); Bilirubin, Direct 0.24 mg/dL (0.00-0.20); Bilirubin, Total 1.1 mg/dL (0.2-1.0); C-Reactive Protein 9.67 mg/dL (0.0-0.3); CO2 32.2 mmol/L (21.0-32.0); CREATININE 1.71 mg/dL (0.55-1.02); Calcium 8.4 mg/dL (8.5-10.1); Chloride 101 mmol/L (98-107); Estimated GFR 28.87 (mL/min/1.73m2); Glucose 96 mg/dL (74-106); Potassium 3.8 mmol/L (3.5-5.1); Sodium 139 mmol/L (136-145); Total Protein 6.3 g/dL (6.4-8.2)
[2020-02-14 07:15] LABS: Iron 46 ug/dL (50-170); Total Iron Binding Capacity 212 ug/dL (250-450); Transferrin Sat 22 % (15-50)
[2020-02-14 07:33] LABS: Ferritin 126 ng/mL (8-252)
[2020-02-14 09:06] LABS: COVID-19 RT-PCR UVMMC Result Negative (Negative)
[2020-02-14] MEDS: Multivitamin w/Minerals TAB 1 TAB PO (09:50)
[2020-02-14] MEDS: Docusate Sodium 100 MG CAP PO ×2 (09:50→21:24)
[2020-02-14] MEDS: traMADol 50 MG TAB PO ×2 (09:50→21:24)
[2020-02-14] MEDS: Cyanocobalamin 500 MCG TAB 1000 MCG PO (09:50)
[2020-02-14] MEDS: Cholecalciferol (Vitamin D3) 1,000 UNIT TAB 1000 UNITS PO (09:51)
[2020-02-14] MEDS: Atorvastatin 20 MG TAB PO (09:51)
[2020-02-14] MEDS: Metoprolol 50 MG TAB PO (09:51)
[2020-02-14] MEDS: hydrALAZINE 10 MG TAB PO ×3 (09:51→21:24)
[2020-02-14] MEDS: Aspirin E.C. 81 MG TABEC PO (09:51)
[2020-02-14] MEDS: Normal Saline Flush 10 ML SYR IVP ×2 (09:51→15:29)
[2020-02-14] MEDS: Hydroxychloroquine 200 MG TAB PO (09:51)
[2020-02-14] MEDS: Amiodarone 200 MG TAB PO (09:51)
[2020-02-14] MEDS: Furosemide 100 MG/10 ML VIAL 60 MG IVP ×2 (10:07→15:27)
[2020-02-14] MEDS: cefTRIAXone 1 GM/50 ML BAG IVPB (10:08)
[2020-02-14] MEDS: DOXYCYCLINE 100 MG in Normal Saline 100 ML IVPB (10:08)
[2020-02-14] MEDS: Ipratropium/Albuterol 4 GM 120 PUFF INH IH ×4 (10:16→21:25)
[2020-02-14] MEDS: Polyethylene Glycol 3350 17 GM PACKET PO (10:25)
[2020-02-14] MEDS: Pantoprazole 40 MG TABCR PO ×2 (10:25→21:24)
--- NOTE | 2020-02-14 10:49 | PDOC.CMIN ---
- If Service Date Differs Date of service: 02/14/20 Time of Service: 10:49 Care Management Initial Assess REASON FOR HOSPITALIZATION:: CAP, Acute Exacerbation of combined CHF PAST MEDICAL HISTORY/PAST SURGICAL HISTORY:: Medical History. Atrial fibrillation (Chronic). Depression (Chronic). Diverticulosis of colon (Acute). Fibromyalgia (Acute). Gastroesophageal reflux (Chronic). History of tobacco use (Acute). Hydronephrosis (Acute). Hyperlipidemia (Acute). Hypertension (Chronic). Intestinal adhesions (Acute). Respiratory infection (Acute). Systemic lupus erythematosus (Chronic). Surgical History. History of hysterectomy (Chronic). History of partial colectomy (Acute). partial bowel resection-colectomy with colosotmy ad reversal, abdominal adhesions. History of surgical removal of ganglion cyst (Acute). both wrists. History of tonsillectomy and adenoidectomy (Acute). Hx of bilateral cataract extraction (Acute). Hx of section (Chronic). Hx of knee surgery (Acute). S/p bilateral carpal tunnel release (Acute) PREVIOUS FUNCTIONAL STATUS/SOCIAL/FAMILY SUPPORTS:: Chandni is a x2 she lives in her own home in [place], [place] she has two children that live local. Chandni is planning on moving into a mother in law apartment with her son and his , and sell her home. She states she drives and is able to take care of herself indepedently. CURRENT FUNCTIONAL STATUS:: Chandni was sitting up in her chair when CM met with her. She reported that she was feeling much better today than she had been the last two days. She stated that she doesn't have her hearing aids with her, which makes it difficult to hear when people are giving her instructions. CM asked if she received resources on CHF during her last admission, which she stated that she did. She reported to CM that she is hoping to move into her son's in law apartment soon, but she may not be able to sell her house given the current market and also due to a legal concern from her late 's estate. The provider entered the room to evaluate the pt. CM offered additional support/resources if needed, and let Chandni know that she can page/call a CM at any time. CM assisted Chandni with admission paperwork and faxed it to [facility]. CM will continue to follow. ADVANCE DIRECTIVES:: On file, Ton Cardona listed as agent. Has patient been provided with information about the portal?: Yes Did the patient sign up for the portal?: No CODE STATUS:: DNI INSURANCE COVERAGE / FINANCIAL ISSUES:: [employer], Medicare, patient financial assistance CURRENT HOME/COMMUNITY SERVICES/EQUIPMENT:: No community services or equipment at this time. PRIMARY CARE PHYSICIAN:: Lyubov Burnett, [facility] POTENTIAL DISCHARGE NEEDS:: Evaluations for further needs, follow-up appointment with primary care scheduled prior to discharge PATIENT/FAMILY EDUCATION NEEDS:: Discharge education, limitations, medications, follow-up plan of care, self-management and asked me 3. CM provided congestive heart failure resources and materials for weight monitoring, and activity tolerance. ANTICIPATED BARRIERS TO DISCHARGE:: None identified at this time. TRANSPORTATION:: Chandni will transport via private vehicle by family. PLAN:: Chandni will be discharged when medically ready. She will follow-up with her primary care as directed. No anticipated additional services at time of discharge. Her family will transport her via private vehicle when ready. CM to continue to provide support with discharge planning.
--- NOTE | 2020-02-14 11:20 | IN_ITS ---
Date of service: 02/14/20 Time of Service: 11:20 PT Notes Visit Reasons: CAP, ACUTE EXACERBATION OF COMBINED CHF, ?COVID-19 Physical Therapy Inpatient Initial Evaluation Date: 02/14/2020 Referring Doctor: Kathryn Bledsoe MD PT Orders: PT CONSULT: Limited ability Precautions: Fall. Standard. On 2 L/min continuous per RT. Activity as tolerated. Patient Profile/Admitting Diagnosis: Patient is a 79-year-old female who presented to the ED with progressive shortness of breath and pitting edema to bilateral legs. Patient tested negative to COVID-19 as of 02/14/2020. She is diagnosed with acute on chronic congestive heart failure, suspected community-acquired pneumonia, increased troponin, chronic respiratory failure with hypoxia, pulmonary hypertension, supratherapeutic INR, fall, and ambulatory dysfunction. PMHX: Medical History Atrial fibrillation (Chronic) Depression (Chronic) Diverticulosis of colon (Acute) Fibromyalgia (Acute) Gastroesophageal reflux (Chronic) History of tobacco use (Acute) Hydronephrosis (Acute) Hyperlipidemia (Acute) Hypertension (Chronic) Intestinal adhesions (Acute) Respiratory infection (Acute) Systemic lupus erythematosus (Chronic) Surgical History History of hysterectomy (Chronic) History of partial colectomy (Acute) partial bowel resection-colectomy with colosotmy ad reversal, abdominal adhesions History of surgical removal of ganglion cyst (Acute) both wrists History of tonsillectomy and adenoidectomy (Acute) Hx of bilateral cataract extraction (Acute) Hx of section (Chronic) Hx of knee surgery (Acute) S/p bilateral carpal tunnel release (Acute) Social History/Home Situation: Patient lives alone in a 12 room house with 1 step to enter in [place], [place]. She has another 13 steps to the downstairs with bilateral rails which she reports she has been recently using as she has been preparing to sell this house. She is independent with everything without the need for assistive ambulatory device nor adaptive equipment. She loves gardening. She states that she is planning on eventually living with her son and her son's family in an in-law apartment that her son has prepared for her. Equipment Owned/DME: None Subjective: Patient is pleasant and cooperative. She voices discomfort on her throat area as well as her left armpit. She reports some discomfort on her IV site. She states that these can be a manifestation of her congestive heart failure as she has had same symptoms previously. She reports numbness on her bilateral hands and legs that she states she has had for quite a while now. She further reports that her oxygen levels fluctuate specially if she participates in exercises. She states that she used to go to the [facility] physical therapy for strengthening and balance progression. She claims that she can no longer maintain her big house alone. Objective: General Observation: Patient appears mildly anxious and a bit fidgety. Oxygen supplementation via NC seen. IV in the left brachium. Mental Status: Alert and oriented x4. Pain: Some discomfort on her IV site, her left armpit area and her throat Vital Signs: Oxygen saturation ranged from 83% through 98% on 2 L via NC throughout ambulation activity ROM: Right Upper Extremity: Shoulder Flexion WFL. Shoulder abduction WFL. Elbow flexion WFL. Wrist flexion WFL. Opening and closing of hand WFL. Left Upper Extremity: Shoulder Flexion WFL. Shoulder abduction WFL. Elbow flexion WFL. Wrist flexion WFL. Opening and closing of hand WFL. Right Lower Extremity: Hip flexion WFL. Hip abduction WFL. Knee flexion WFL. Ankle dorsiflexion WFL. Ankle plantarflexion WFL. Left Lower Extremity: Hip flexion WFL. Hip abduction WFL. Knee flexion WFL. Ankl e dorsiflexion WFL. Ankle plantarflexion WFL. Strength: Right Upper Extremity: Shoulder flexors 5/5. Shoulder abductors 5/5. Elbow flexors 5/5. Elbow extensors 5/5. 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 Left Upper Extremity: NT as patient was anxious about providing resistance to her left upper extremity. Grossly 3-/5. Right Lower Extremity: Hip flexors 4-/5. Hip abductors 4-/5. Knee flexors 4-/5. Knee extensors 4-/5. Ankle dorsiflexors 4/5. Ankle plantarflexors 4/5. Left Lower Extremity: Hip flexors 4-/5. Hip abductors 4-/5. Knee flexors 4-/5. Knee extensors 4-/5. Ankle dorsiflexors 4/5. Ankle plantarflexors 4/5. Sensation: Decreased as to pain and pressure on bilateral lower extremities. Bed Mobility/Transfers: Sit to stand SBA without assistive device Stand to sit SBA without assistive device Bed to chair SBA without assistive device Chair to bed SBA without assistive device Gait: Patient was able to tolerate 140 feet x 2 without an assistive device but with wheelchair follow and IV pole management of this PT. Oxygens saturation was significantly fluctuating between 83% to 90% on 2 L of oxygen. Patient required 2 seated rests due to poor oxygen saturation control. Reciprocal gait pattern. Kelin decreased. Balance: Static Sitting: Normal Dynamic Sitting: Normal Static Standing: Normal Dynamic Standing: Good Special Tests: Mobility Limitations Standardized Measure [facility] AM-PAC 6 clicks Basic Mobility Inpatient Short Form: Raw Score: 20 CMS Score: 36% deficit 4 stage balance test: Patient was able to maintain feet together and semi-tandem on the right and left side for 10 seconds but was unable to maintain full tandem stance as well as 1 legged stance indicating a risk for falls. Informed Consent/Education: Patient instructed in purpose of PT consult and plan of care. Assessment: Decreased activity tolerance, functional mobility decline, balance impairment, and generalized weakness resulting from current diagnoses. Patient is a 79-year-old female who presented to the ED with progressive shortness of breath and pitting edema to bilateral legs. Patient tested negative to COVID-19 as of 02/14/2020. She is diagnosed with acute on chronic congestive heart failure, suspected community-acquired pneumonia, increased troponin, chronic respiratory failure with hypoxia, pulmonary hypertension, supratherapeutic INR, fall, and ambulatory dysfunction. Patient presents with clinical signs and symptoms consistent with current/admitting diagnoses that have resulted to mobility limitations, gait instability, generalized weakness, and impairment of motor control as demonstrated by the following impairment level findings: 1. Decreased strength to B UE/LE major muscle groups 2. Impaired sitting/standing balance 3. Impaired activity tolerance Impairments are contributing to the following functional limitations: 1. Inability to safely ambulate without assistive device and physical assistance 2. Increase completion time for mobility ADL performance 3. Increased fall risk 4. Inability to negotiate steps alone safely Patient is assessed as a 76327 moderate complexity based on the following: History: Patient is a 79-year-old female with impairment level findings, functional limitations, and past medical history as indicated above Examination: Demonstrable impairment in strength, balance, and activity tolerance with underlying impairments and functional limitations as documented above Presentation: Evolving Decision Makin moderate complexity Goals: Goals X1 week 1. Supine-Sit independent 2. Sit-Supine independent 3. Sit-Stand independent 4. Stand-Sit independent 5. Bed-Chair independent 6. Chair-Bed independent 7. Independent gait on level surface without an assistive device for at least 300 feet at above 90% on 2 L of oxygen supplementation per minute without report of pain nor dyspnea 8. Independent stair negotiation while holding onto bilateral rails for at least 10 steps at above 90% on 2 L of oxygen supplementation per minute without report of pain nor dyspnea 9. Independent with home exercise program 10. Good static and dynamic standing balance/tolerance Plan of Care/Treatment Plan: 1-2x/day, 7 days/week x 1 week. Initiate Physical Therapy intervention for strengthening, bed mobility, transfers, gait, stairs, balance training, use of assistive device. DISCHARGE RECOMMENDATIONS: Patient will benefit from home health PT services in order to progress mobility level using no assistive ambulatory device, assess home safety, identify additional equipment needs, and establish a functional maintenance program that will increase ability of patient to remain at home. No equipment needs at this time. TREATMENT CODE/TIME: 86752 x 30 minutes, 26576 x 39 minutes beginning at 11:20 AM. Thank you very much for this referral. Milana Byrd PT, DPT, CLT [facility] [place], [place]
--- NOTE | 2020-02-14 13:39 | PHA.REVIEW ---
Pharmacy Admission Review - Admission Clinical Review (Last Updated 02/13/20 @ 15:40 by Kathryn Bledsoe MD) Suspected COVID-19 virus infection (Acute) Ambulatory dysfunction (Acute) Fall (Acute) Supratherapeutic INR (Acute) Pulmonary hypertension (Acute) Chronic respiratory failure with hypoxia (Acute) Elevated troponin (Acute) Acute on chronic diastolic CHF (congestive heart failure), NYHA class 1 (Acute) Discharge planning issues (Acute) DVT prophylaxis (Acute) Shortness of breath (Acute) Sulfa (Sulfonamide Antibiotics) Allergy (Unverified 02/13/20 07:10) cat scan dye Adverse Reaction (Uncoded 02/13/20 07:10) Height 5 ft 4 in Weight 104.4 kg - Renal Dosing Renal Dosing: BUN 26 mg/dL (7-18) H 02/14/20 06:15 Creatinine 1.71 mg/dL (0.55-1.02) H 02/14/20 06:15 Medications needing adjustments: Reviewed (Crcl ~31.9 mL/min using adjusted body weight. Amitriptyline, hydroxychloroquine, meclizine, use with caution. Other med orders okay right now.) - Anticoagulation Anticoagulation: Hgb 10.0 g/dL (12.0-15.5) L 02/14/20 06:15 Hct 31.7 % (36.0-46.0) L 02/14/20 06:15 Plt Count 215 x1000/uL (130-400) 02/14/20 06:15 INR 3.0 (0.9-1.1) H D 02/14/20 06:15 Creatinine 1.71 mg/dL (0.55-1.02) H 02/14/20 06:15 DVT Prohphylaxis: N/A Therapeutic Anticoagulation: Reviewed Medications: Warfarin (on hold due to supratherapeutic INR yesterday) - Opiate Usage Evaluate Pain Scale/Pains Meds: Reviewed Scheduled Bowel Reg ordered if on Opiates?: Yes - Relevant Labs Sodium 139 mmol/L (136-145) 02/14/20 06:15 Potassium 3.8 mmol/L (3.5-5.1) 02/14/20 06:15 Chloride 101 mmol/L (98-107) 02/14/20 06:15 Magnesium 2.0 mg/dL (1.8-2.4) 02/14/20 06:15 C-Reactive Protein 9.67 mg/dL (0.0-0.3) H 02/14/20 06:15 - DM Control DM Control: Glucose 96 mg/dL (74-106) 02/14/20 06:15 Insulin Dosing: N/A - Heart Failure/FL Heart Failure/FL: Troponin I 0.07 ng/Ml (<0.06) 02/13/20 16:50 NT-Pro-B Natriuret Pep 1270 pg/mL (<300) H 02/13/20 06:45 EF%, NANDO's, B-Blockers, Diuretics: Reviewed (furosemide, metoprolol) - BP Control BP Control: Blood Pressure 145/74 Blood Pressure 128/57 Blood Pressure 126/52 If elevated: Reviewed - Qtc Review If Elevated: Intervened List meds needing interventions: QTc 498 has amiodarone, amitriptyline, hydroxychloroquine and albuterol ordered. Discussed with MD. Baseline meds for this patient. Loratadine to be held due to interaction with amiodarone. 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 Multiple QT prolonging meds: amiodarone, albuterol, hydroxychloroquine, amitriptyline. Amiodarone may enahance the anticoagant effect of warfarin, monitor for increased effects when dosing changes made. Aspirin may enhance the anticoagulant effect of warfarin; avoid high doses of aspirin, low doses okay with increased monitoring. Concurrent use of amiodarone and loratadine may increase the risk of QT prolongation and torsade de pointes.) Relevent Home Meds Not ordered & why?: loratadine (order d/c'd due to interaction with amiodarone/increased QTc); warfarin (supratherapeutic INR) - Current meds Current Medication Order Review: Intervened (Discontinued duplicate orders. Fixed timing of pantoprazole. Talked to MD about 2 docusate orders.) - Comments Comments/Follow Ups: Watch INR and for restart of warfarin. Pt's own milnacipran ordered, nursing checking to see if pt can get own med brought in. Watch for the addition of any QT prolonging meds. Antibiotic Activity - Pharmacy Antibiotic Review Pharmacy Antibiotic Activity: D/C antibiotic (abx discontinued)
--- NOTE | 2020-02-14 14:39 | W.NUTCONSULT ---
Date of service: 02/14/20 Time of Service: 14:40 Nutritional Consult ASSESSMENT: 79 year old female admitted with CAP, chronic repiratory failure with hypoxia and CHF. Diet recall indicates heavy reliance on take out/restaurant foods, chips, dips and other salty snack items. Chandni also reports drinking > 10 cups water daily. Educated pt on importance of following a low salt diet, and to hydrate with only 6-8 cups daily. Provided Low Sodium education material from Nutrition Care Manual. Reviewed optimal meal choices if does go out or get take out and encouraged more home cooking using non salt seasoning. Following Low Salt/HH diet with adequate intake. Weight indicates class 2 obesity, bordering on morbid obesity. Encouraged increased exercise when discharge and follow up with PCP Reviewed reliance of weighing herself daily to assess fluid shifts. Very receptive to education provided. NUTRITIONAL DIAGNOSIS: Excessive intake of sodium as evidenced by reliance on takeout/restaurant foods daily INTERVENTION: Low Sodium Diet Education MONITORING AND EVALUATION: weight, po intake, labs Time Spent in Nutritional Counseling and Treatment: 15 min spent face to face
--- NOTE | 2020-02-14 15:29 | W.PM.PROGNOT ---
Date of Service Date of service: 02/14/20 Time of Service: 15:29 Assessment and Plan Assessment and plan (1) Acute on chronic diastolic CHF (congestive heart failure), NYHA class 1: Start date: 02/14/20 Start time: 15:39 Status: Acute Assessment and plan: Symptoms improving, continue diuresis. (2) CAP (community acquired pneumonia): Start date: 02/14/20 Start time: 15:39 Status: Ruled-out Assessment and plan: Procalcitonin undetectable, no signs of PNA, d/c antibotics (3) Elevated troponin: Start date: 02/14/20 Start time: 15:40 Status: Acute Assessment and plan: likely has to do with fluid status. No CP, see above (4) Suspected COVID-19 virus infection: Start date: 02/14/20 Start time: 15:41 Status: Ruled-out Assessment and plan: COVID-19 test negative. Patient moved out of negative pressure room (5) Paroxysmal atrial fibrillation: Start date: 02/14/20 Start time: 15:43 Status: Chronic Assessment and plan: Monitor on tele. INR 3.0 give 2.5 mg. Continue amiodarone. (6) Chronic respiratory failure with hypoxia: Start date: 02/14/20 Start time: 15:49 Status: Acute Assessment and plan: It sounds like the patient does not wear oxygen 12/05 - only using it as needed. We will have to reevaluate this prior to discharge At this time she is also requiring 1-2 L oxygen when ambulating, likely she will need to follow these recommendations on discharge as well. (7) Pulmonary hypertension: Start date: 02/14/20 Start time: 15:50 Status: Acute Assessment and plan: Diurese. Sleep study advised. (8) Normocytic anemia: Start date: 02/14/20 Start time: 15:50 Status: Inactive Assessment and plan: Stable. (9) Supratherapeutic INR: Start date: 02/14/20 Start time: 15:52 Status: Acute Assessment and plan: INR 3.0 will give 2.5 mg dose and continue to monitor while in hospital, she does use a protime meter at home. (10) Fall: Start date: 02/14/20 Start time: 15:52 Status: Acute Assessment and plan: Especially concerning given the fact that the patient states this happens to her quite a bit - and that she is on anticoagulation. PT to work with patient. (11) Ambulatory dysfunction: Start date: 02/14/20 Start time: 15:53 Status: Acute Assessment and plan: As above - consult PT (12) Discharge planning issues: Start date: 02/14/20 Start time: 15:53 Status: Acute Assessment and plan: Patient changed her code status to DNI and is interested in having chest compressions. Will also consult palliative care. (13) DVT prophylaxis: Start date: 02/14/20 Start time: 15:53 Status: Acute Assessment and plan: On coumadin Above case discussed with Dr. Bledsoe who is in agreement. Subjective Subjective Patient reports: feels better Interval history since last seen: Denies SOB, swelling improved. She is not having any difficulty breathing, coughing or mucus production. Recommend oxygen at night, she likely has Sleep apnea, she states unless they make a machine that doesn't make you feel clausterphobic she will not wear a cpap. She is sitting up in chair on side of bed, no acute distress. Exam Narrative Exam Narrative: General: Pleasant, talkative elderly female, who appears to have no difficulty talking in multiple lenghty sentences in a row while sitting up in a chair, A&OX3, Atraumatic Neurological: A&Ox3, no focal deficits Psychiatric: appropriate speech pattern/content Skin: visible skin intact, no bruising noted HEENT: Atraumatic, normocephalic, EOMI, patient is wearing a mask - mmm, no cough at this time, +goiter, no JVD/sumbandibular/cervical lymphadenopathy Cardiovascular: irregularly irregular rhythm, no m/r/g Lungs: fine crackles RLL otherwise both lobes diminished Gastrointestinal: soft, nontender, nondistended Extremities: +2 LE edema to right pitting and +1 to LLE pitting, appears symmetric, no c/c. 1+ pedal pulses B; Objective Objective Clinical Data: Abnormal lab results 02/14/20 02/14/20 02/14/20 Range/Units 06:15 06:15 06:15 RBC 3.33 L (4.00-5.20) m/cumm Hgb 10.0 L (12.0-15.5) g/dL Hct 31.7 L (36.0-46.0) % MCV 95.2 H (80-95) fL MCHC 31.5 L (32.0-36.0) g/dL Absolute Lymphocytes 1.10 L (1.2-3.4) k/cumm Absolute Monocytes 0.83 H (0.11-0.7) k/cumm PT 29.6 H (9.3-11.0) sec INR 3.0 H D (0.9-1.1) Carbon Dioxide 32.2 H (21.0-32.0) mmol/L BUN 26 H (7-18) mg/dL Creatinine 1.71 H (0.55-1.02) mg/dL Calcium 8.4 L (8.5-10.1) mg/dL Iron (50-170) ug/dL TIBC (250-450) ug/dL Total Bilirubin 1.1 H (0.2-1.0) mg/dL Conjugated Bilirubin 0.24 H (0.00-0.20) mg/dL C-Reactive Protein 9.67 H (0.0-0.3) mg/dL Total Protein 6.3 L (6.4-8.2) g/dL Albumin 3.0 L (3.4-5.0) g/dL 02/14/20 Range/Units 06:15 RBC (4.00-5.20) m/cumm Hgb (12.0-15.5) g/dL Hct (36.0-46.0) % MCV (80-95) fL MCHC (32.0-36.0) g/dL Absolute Lymphocytes (1.2-3.4) k/cumm Absolute Monocytes (0.11-0.7) k/cumm PT (9.3-11.0) sec INR (0.9-1.1) Carbon Dioxide (21.0-32.0) mmol/L BUN (7-18) mg/dL Creatinine (0.55-1.02) mg/dL Calcium (8.5-10.1) mg/dL Iron 46 L (50-170) ug/dL TIBC 212 L (250-450) ug/dL Total Bilirubin (0.2-1.0) mg/dL Conjugated Bilirubin (0.00-0.20) mg/dL C-Reactive Protein (0.0-0.3) mg/dL Total Protein (6.4-8.2) g/dL Albumin (3.4-5.0) g/dL Vital Signs Temperature 36.6 C 02/14/20 11:25 Temperature Source Tympanic 02/14/20 11:25 Pulse 65 02/14/20 11:25 Pulse Rhythm Irregular 02/14/20 13:38 Pulse 78 02/13/20 07:53 Respiratory Rate 18 02/14/20 11:25 Respiratory Effort Non-Labored 02/14/20 13:38 Respiratory Depth Normal 02/14/20 13:38 Respiratory Pattern Normal 02/14/20 13:38 Blood Pressure 145/74 H 02/14/20 11:25 Blood Pressure Mean 68 02/13/20 07:53 Pulse Oximetry 100 02/14/20 11:25 Oxygen Delivery Method Cpap 02/14/20 11:25 Oxygen Flow Rate 2 02/14/20 11:25 Pain Level 0 02/14/20 11:25 Comment 02/14/20 01:35 Intake & Output 02/13/20 02/14/20 02/14/20 23:59 11:59 23:59 Intake Total 210 / 260 100 / 340 240 / 340 Output Total 2400 / 2825 500 / 500 Balance -2190 / -2565 -400 / -160 240 / -160 Intake: IV 110 / 160 100 / 100 Oral 100 / 100 240 / 240 Output: Urine 2400 / 2825 500 / 500 Other: Urine Color Yellow Urine Appearance Clear Clear Clear Urine Odor None Comment frequency due to lasix Voiding Methods Toilet Toilet Laboratory Results WBC 6.12 k/cumm (4.4-10.8) D 02/14/20 06:15 RBC 3.33 m/cumm (4.00-5.20) L 02/14/20 06:15 Hgb 10.0 g/dL (12.0-15.5) L 02/14/20 06:15 Hct 31.7 % (36.0-46.0) L 02/14/20 06:15 MCV 95.2 fL (80-95) H 02/14/20 06:15 MCH 30.0 pg (27.0-33.0) 02/14/20 06:15 MCHC 31.5 g/dL (32.0-36.0) L 02/14/20 06:15 RDW 14.3 % (11.7-14.6) 02/14/20 06:15 Plt Count 215 x1000/uL (130-400) 02/14/20 06:15 MPV 10.0 fL (8.0-11.0) 02/14/20 06:15 Immature Gran % 0.2 % 02/14/20 06:15 Neutrophils % 66.4 02/14/20 06:15 Lymphocytes % 18.0 02/14/20 06:15 Monocytes % 13.6 02/14/20 06:15 Eosinophils % 1.6 02/14/20 06:15 Basophils % 0.2 02/14/20 06:15 Absolute Neutrophils 4.06 k/cumm (1.2-6.7) 02/14/20 06:15 Absolute Lymphocytes 1.10 k/cumm (1.2-3.4) L 02/14/20 06:15 Absolute Monocytes 0.83 k/cumm (0.11-0.7) H 02/14/20 06:15 Absolute Eosinophils 0.10 k/cumm (0.0-0.7) 02/14/20 06:15 Absolute Basophils 0.01 k/cumm (0.0-0.2) 02/14/20 06:15 PT 29.6 sec (9.3-11.0) H 02/14/20 06:15 INR 3.0 (0.9-1.1) H D 02/14/20 06:15 APTT 45.9 sec (21.0-31.4) H 02/13/20 06:45 D-Dimer 1191 ng/mlFEU (<500) H 02/13/20 06:25 VBG pH 7.43 (7.35-7.45) 02/13/20 06:45 VBG pCO2 43 mm/Hg (34-47) 02/13/20 06:45 VBG pO2 43 mm/Hg (28-44) 02/13/20 06:45 VBG HCO3 29 mmol/L (22-28) H 02/13/20 06:45 VBG Total CO2 27 mmol/L (22-29) 02/13/20 06:45 VBG O2 Saturation 82 % (70-80) H 02/13/20 06:45 VBG Base Excess 4.6 mmol/L (-3-3) H 02/13/20 06:45 Sodium 139 mmol/L (136-145) 02/14/20 06:15 Potassium 3.8 mmol/L (3.5-5.1) 02/14/20 06:15 Chloride 101 mmol/L (98-107) 02/14/20 06:15 Carbon Dioxide 32.2 mmol/L (21.0-32.0) H 02/14/20 06:15 Anion Gap 5.8 mmol/L (3-11) 02/14/20 06:15 BUN 26 mg/dL (7-18) H 02/14/20 06:15 Creatinine 1.71 mg/dL (0.55-1.02) H 02/14/20 06:15 Estimated GFR/1.73 m2 28.87 (mL/min/1.73m2) 02/14/20 06:15 Glucose 96 mg/dL (74-106) 02/14/20 06:15 Calcium 8.4 mg/dL (8.5-10.1) L 02/14/20 06:15 Magnesium 2.0 mg/dL (1.8-2.4) 02/14/20 06:15 Iron 46 ug/dL (50-170) L 02/14/20 06:15 TIBC 212 ug/dL (250-450) L 02/14/20 06:15 Transferrin % Sat 22 % (15-50) 02/14/20 06:15 Ferritin 126 ng/mL (8-252) 02/14/20 06:15 Total Bilirubin 1.1 mg/dL (0.2-1.0) H 02/14/20 06:15 Conjugated Bilirubin 0.24 mg/dL (0.00-0.20) H 02/14/20 06:15 AST 28 U/L (15-37) 02/14/20 06:15 ALT 21 U/L (14-59) 02/14/20 06:15 Alkaline Phosphatase 72 U/L (46-116) 02/14/20 06:15 Troponin I 0.07 ng/Ml (<0.06) 02/13/20 16:50 C-Reactive Protein 9.67 mg/dL (0.0-0.3) H 02/14/20 06:15 NT-Pro-B Natriuret Pep 1270 pg/mL (<300) H 02/13/20 06:45 Total Protein 6.3 g/dL (6.4-8.2) L 02/14/20 06:15 Albumin 3.0 g/dL (3.4-5.0) L 02/14/20 06:15 Procalcitonin < 0.1 ng/mL 02/13/20 07:50 COVID-19 PCR Negative (Negative) 02/13/20 08:00 Nasopharyn COVID-19 PCR Not Applicable 02/13/20 08:00 Ref Test Perform Site [facility] hospital lab 02/13/20 08:00
--- NOTE | 2020-02-14 16:04 | CHAPLAIN ---
Chandni was sitting up in bed when I visited. She said she doesn't have her hearing aids with her, so understanding everyone has been difficult. She was making an effort to keep her arm straight and the IV needle in place, as there was some trouble with it earlier. I explained my role and offered support. Chandni said her son dropped off some things she asked for but not her phone. She was waiting for staff to find a hospital phone for her room so she could call her son.
--- NOTE | 2020-02-14 16:05 | PTTR_ITS ---
Date of service: 02/14/20 Time of Service: 16:05 PT Notes Visit Reasons: CAP, ACUTE EXACERBATION OF COMBINED CHF, ?COVID-19 Inpatient Physical Therapy Treatment Note [facility] Date: 02/14/2020 PRECAUTIONS: Fall. Standard. Activity as tolerated. On 2 L of oxygen per minute during physical therapy sessions. SUBJECTIVE: Denies headache, chest pain, and dizziness throughout session. OBJECTIVE: On telemetry. Patient performing toileting task upon arrival of PT. IV on left brachium unhooked. PAIN: None reported. BED MOBILITY/TRANSFERS Sit-stand: Supervision, no AD needed Stand-sit: Supervision, no AD needed Bed-Chair: Supervision, no AD needed Chair-bed: Supervision, no AD needed GAIT Assistive Device: No AD Weight bearing: Full weight bearing Assist: SBA Distance: 165 feet x 2 Deviation: Slowed araceli. VITALS: Desaturated to 83% on 2 L/min requiring 2 standing rests with re- saturation back within 1 minute to above 90% on 2 L THEREX: Patient tolerated standing level exercises consisting of bilateral heel raises x10, partial knee bends x10, alternate hip extension exercises x10 with education and training on pursed lip breathing x 3 reps after each exercise with good response. Oxygen saturation remained above 95% during exercise activity on 2 L/min. Assessment: Patient demonstrates decreased activity tolerance, functional mobility decline, balance impairment, and generalized weakness resulting from current diagnoses. Patient is a 79-year-old female who presented to the ED with progressive shortness of breath and pitting edema to bilateral legs. Patient tested negative to COVID-19 as of 02/14/2020. She is diagnosed with acute on chronic congestive heart failure, suspected community-acquired pneumonia, increased troponin, chronic respiratory failure with hypoxia, pulmonary hypertension, supratherapeutic INR, fall, and ambulatory dysfunction. Plan of Care/Treatment Plan: 1-2x/day, 7 days/week x 1 week. Initiate Physical Therapy intervention for strengthening, bed mobility, transfers, gait, stairs, balance training, use of assistive device. DISCHARGE RECOMMENDATIONS: Patient will benefit from home health PT services in order to progress mobility level using no assistive ambulatory device, assess home safety, identify additional equipment needs, and establish a functional maintenance program that will increase ability of patient to remain at home. No equipment needs at this time. TREATMENT CODE/TIME: 28897 x 16 minutes, 00239 x 15 minutes beginning at 16:05 PM.
[2020-02-14] MEDS: Pramipexole 0.25 MG TAB 0.125 MG PO (21:23)
[2020-02-14] MEDS: Amitriptyline 50 MG TAB PO (21:25)
[2020-02-15] VITALS (8 sets, daily range): BP systolic 110–167; BP diastolic 58–88; PULSE 62–68; RESP 12–20; TEMP 36.5–37; O2SAT 91–99
[2020-02-15 06:49] LABS: Abs Immature Grans 0.01 k/cumm (0.0-0.09); Absolute Basophil Count 0.01 k/cumm (0.0-0.2); Absolute Eosinophil Count 0.17 k/cumm (0.0-0.7); Absolute Lymphocyte Count 1.09 k/cumm (1.2-3.4); Absolute Monocyte Count 0.79 k/cumm (0.11-0.7); Absolute Neutrophil Count 4.21 k/cumm (1.2-6.7); Basophils % 0.2; Eosinophils % 2.7; HCT 30.6 % (36.0-46.0); HGB 9.4 g/dL (12.0-15.5); Immature Grans % 0.2 %; Lymphocytes % 17.4; Mean Corp. HGB Concentration 30.7 g/dL (32.0-36.0); Mean Corpuscular Hemoglobin 29.3 pg (27.0-33.0); Mean Corpuscular Volume 95.3 fL (80-95); Mean Platelet Volume 10.1 fL (8.0-11.0); Monocytes % 12.6; Neutrophils % 66.9; Platelet Count 221 x1000/uL (130-400); RBC 3.21 m/cumm (4.00-5.20); RBC Distribution Width 14.4 % (11.7-14.6); White Blood Cell Count 6.28 k/cumm (4.4-10.8)
[2020-02-15 07:08] LABS: BUN 37 mg/dL (7-18); Calcium 8.8 mg/dL (8.5-10.1); Chloride 101 mmol/L (98-107); Glucose 102 mg/dL (74-106); Potassium 3.7 mmol/L (3.5-5.1); Sodium 138 mmol/L (136-145)
[2020-02-15 07:16] LABS: INR 1.9 (0.9-1.1); Prothrombin Time 18.7 sec (9.3-11.0)
[2020-02-15] MEDS: Polyethylene Glycol 3350 17 GM PACKET PO (08:40)
[2020-02-15] MEDS: Furosemide 100 MG/10 ML VIAL 60 MG IVP (08:40)
[2020-02-15] MEDS: Hydroxychloroquine 200 MG TAB PO (08:41)
[2020-02-15] MEDS: Atorvastatin 20 MG TAB PO (08:41)
[2020-02-15] MEDS: Multivitamin w/Minerals TAB 1 TAB PO (08:41)
[2020-02-15] MEDS: Metoprolol 50 MG TAB PO (08:41)
[2020-02-15] MEDS: Docusate Sodium 100 MG CAP PO (08:41)
[2020-02-15] MEDS: traMADol 50 MG TAB PO ×2 (08:42→20:05)
[2020-02-15] MEDS: Cholecalciferol (Vitamin D3) 1,000 UNIT TAB 1000 UNITS PO (08:42)
[2020-02-15] MEDS: Pantoprazole 40 MG TABCR PO ×2 (08:42→20:05)
[2020-02-15] MEDS: hydrALAZINE 10 MG TAB PO ×3 (08:42→20:05)
[2020-02-15] MEDS: Aspirin E.C. 81 MG TABEC PO (08:42)
[2020-02-15] MEDS: Cyanocobalamin 500 MCG TAB 1000 MCG PO (08:42)
[2020-02-15] MEDS: Amiodarone 200 MG TAB PO (08:42)
[2020-02-15] MEDS: Normal Saline Flush 10 ML SYR IVP (08:43)
[2020-02-15] MEDS: Ipratropium/Albuterol 4 GM 120 PUFF INH IH (10:08)
[2020-02-15] MEDS: Furosemide 80 MG TAB PO ×2 (11:43→16:09)
--- NOTE | 2020-02-15 12:10 | PT.INTREAT ---
Date of service: 02/15/20 Time of Service: 12:10 PT Notes Visit Reasons: CAP, ACUTE EXACERBATION OF COMBINED CHF, ?COVID-19 Inpatient Physical Therapy Treatment Note [facility] Date: 02/15/2020 PRECAUTIONS: Fall. Standard. Activity as tolerated. On 1-2 L of oxygen per minute during physical therapy sessions. SUBJECTIVE: Denies chest pain, however notes that she has a small headache and mild dizziness after taking her inhaler and questions if this could be caused by this. OBJECTIVE: On telemetry. Patient up in room washing herself up upon arrival of PT. Patient notes that she has been up and about her room all morning. PAIN: None reported. BED MOBILITY/TRANSFERS Sit-stand: Supervision, no AD needed, Independent Stand-sit: Supervision, no AD needed, Independent Bed-Chair: Supervision, no AD needed, Independent Chair-bed: Supervision, no AD needed, Independent GAIT Assistive Device: No AD Weight bearing: Full weight bearing Assist: S Distance: 200 feet in AM, 300 feet session 2 Deviation: Slowed araceli. Wore her slippers which cause her to scuff her feet. Required cueing to pick her feet up for ground clearance adis upon fatigue VITALS: Desaturated to 83% on 1 L/min requiring increase to 2 L along with 2 standing rests with re-saturation back within 1 minute to above 90% on 2 L. O2 stauration on 2L ranged from 93-99%. Session 2 started on room air desaturated to 85% utilized 1L/min with saturations ranging from 91-97%. THEREX: Patient tolerated standing level exercises consisting of bilateral heel raises x10, partial knee bends x10, alternate hip extension exercises x10 with education and training on pursed lip breathing x 3 reps after each exercise with good response. Oxygen saturation on room air desaturated down to 80%. Utilized 2L/min to recover. In session 2 on room air was able to stay above 90% with seated LAQ, seated hip flexion, and seated hip abduction. Assessment: Patient continues to demonstrate impairment with activity tolerance and will probably require O2 at home with ADL's. She is currently independent with all her functional transfers. Plan: Continue with skilled PT to promote functional endurance for patient to be able to return home once medically cleared. TREATMENT CODE/TIME: Session 1 [id number] 30 minutes 9:20 AM, Session 2 [id number], [id number] 30 minutes 11:35 AM MENA [place]
--- NOTE | 2020-02-15 13:33 | PDOC.CMPRO ---
- If Service Date Differs Date of service: 02/15/20 Time of Service: 13:33 Care Management Progress Note S/O: CM met with Chandni in her room she will be discharged home when she is medically ready. She does have a palliative consult will meet with her today to discuss goals of care. PT recommends home health PT, she will also have new nursing related to medications and management of CHF. CM will continue to assess for discharge needs and coordination of services as identified. Jairon Tariq is a 79 year old female admitted with, CAP, Acute Exacerbation of CHF, with a history of chronic CHF. P: Discharge home when medically ready, new home health nursing and PT, CM faxed referral. She will transport home with family at time of discharge. CM to continue to assess for ongoing discharge needs.
[2020-02-15 14:03] LABS: HCT 31.4 % (36.0-46.0); HGB 9.8 g/dL (12.0-15.5)
--- NOTE | 2020-02-15 14:43 | RESPIRATORY ---
RT was told by patient she uses 2L of O2 throughout the day as needed and the O2 provider is Edward. Most of the day she's on RA uses oxygen more when she's up and moving around.
--- NOTE | 2020-02-15 16:08 | W.PM.PROGNOT ---
Date of Service Date of service: 02/15/20 Time of Service: 16:08 Assessment and Plan Assessment and plan (1) Acute on chronic diastolic CHF (congestive heart failure), NYHA class 1: Status: Acute Assessment and plan: Near euvolemic for her. Resume outpatient dose of lasix. Plan to discharge home tomorrow. (2) CAP (community acquired pneumonia): Status: Ruled-out Assessment and plan: No further antibiotics. (3) Elevated troponin: Status: Acute Assessment and plan: Represents mild demand ischemia in setting of acute CHF exacerbation and hypoxia. Follow up as outpatient - but for now, no further workup. Continue to monitor on tele. (4) Suspected COVID-19 virus infection: Status: Ruled-out Assessment and plan: Precautions d/c'ed. (5) Paroxysmal atrial fibrillation: Status: Chronic Assessment and plan: Monitor on tele. Continue coumadin Continue amiodarone. (6) Chronic respiratory failure with hypoxia: Status: Acute Assessment and plan: Will need to wear O2 with any activity and at night on discharge. (7) Pulmonary hypertension: Status: Acute Assessment and plan: Will need sleep study. Diuresis switched to PO. (8) Normocytic anemia: Status: Chronic Assessment and plan: Stable. Check hemoccult, iron studies given that ferritin was previously on the lower side and she is on anticoagulation (9) Supratherapeutic INR: Status: Acute Assessment and plan: Heme +, but H/H stable despite being on anticoagulation. Would continue anticoagulation and follow up with general surgery/GI as outpatient for GI workup. (10) Fall: Status: Acute Assessment and plan: Evaluated by PT - will need home health PT. (11) Ambulatory dysfunction: Status: Acute Assessment and plan: As above (12) Discharge planning issues: Status: Acute Assessment and plan: palliative care consulted. DNI at this time. Anticipate discharge home tomorrow (13) DVT prophylaxis: Status: Acute Assessment and plan: On coumadin Subjective Subjective Interval history since last seen: Feels much better now. Denies dizziness, chest pain, shortness of breath, nausea, vomiting. Needed 3L on ambulation with PT; on room air at rest saturating 94-95%. She feels she will be ready to go home tomorrow. Exam Narrative Exam Narrative: General: Talkative obese female, A&Ox3, looks comfortable, mildly tachypneic after talking HEENT: EOMI, MMM Heart: RRR Lungs: quiet crackles at B bases Abdomen: soft, nontender, nondistended Extremities: trace edema BLE's, no c/c Objective Objective Clinical Data: Abnormal lab results 02/15/20 02/15/20 02/15/20 Range/Units 06:15 06:15 06:15 RBC 3.21 L (4.00-5.20) m/cumm Hgb 9.4 L (12.0-15.5) g/dL Hct 30.6 L (36.0-46.0) % MCV 95.3 H (80-95) fL MCHC 30.7 L (32.0-36.0) g/dL Absolute Lymphocytes 1.09 L (1.2-3.4) k/cumm Absolute Monocytes 0.79 H (0.11-0.7) k/cumm PT 18.7 H D (9.3-11.0) sec INR 1.9 H D (0.9-1.1) BUN 37 H D (7-18) mg/dL Creatinine 2.00 H (0.55-1.02) mg/dL 02/15/20 Range/Units 13:50 RBC (4.00-5.20) m/cumm Hgb 9.8 L (12.0-15.5) g/dL Hct 31.4 L (36.0-46.0) % MCV (80-95) fL MCHC (32.0-36.0) g/dL Absolute Lymphocytes (1.2-3.4) k/cumm Absolute Monocytes (0.11-0.7) k/cumm PT (9.3-11.0) sec INR (0.9-1.1) BUN (7-18) mg/dL Creatinine (0.55-1.02) mg/dL Vital Signs Temperature 36.8 C 02/15/20 15:59 Temperature Source Tympanic 02/15/20 15:59 Pulse 62 02/15/20 15:59 Pulse Rhythm Regular 02/15/20 08:45 Pulse 78 02/13/20 07:53 Respiratory Rate 18 02/15/20 15:59 Respiratory Effort 02/15/20 10:26 Respiratory Depth Normal 02/15/20 10:26 Respiratory Pattern Normal 02/15/20 10:26 Blood Pressure 120/58 L 02/15/20 15:59 Blood Pressure Mean 68 02/13/20 07:53 Pulse Oximetry 94 L 02/15/20 15:59 Oxygen Delivery Method Room Air 02/15/20 15:59 Oxygen Flow Rate 0 02/15/20 15:59 Pain Level 0 02/15/20 11:46 Comment 02/14/20 01:35 Intake & Output 02/14/20 02/15/20 02/15/20 23:59 11:59 23:59 Intake Total 240 / 340 370 / 610 240 / 610 Output Total 300 / 800 Balance -60 / -460 370 / 610 240 / 610 Weight 101.3 kg Intake: Oral 240 / 240 370 / 610 240 / 610 Output: Urine 300 / 800 Other: Urine Color Yellow Yellow Urine Appearance Clear Clear Urine Odor None Comment patient voids independently in the bathroom Stool Occult Blood Positive Stool Size Small Stool Characteristics Formed Brown Black Voiding Methods Toilet Laboratory Results WBC 6.28 k/cumm (4.4-10.8) 02/15/20 06:15 RBC 3.21 m/cumm (4.00-5.20) L 02/15/20 06:15 Hgb 9.8 g/dL (12.0-15.5) L 02/15/20 13:50 Hct 31.4 % (36.0-46.0) L 02/15/20 13:50 MCV 95.3 fL (80-95) H 02/15/20 06:15 MCH 29.3 pg (27.0-33.0) 02/15/20 06:15 MCHC 30.7 g/dL (32.0-36.0) L 02/15/20 06:15 RDW 14.4 % (11.7-14.6) 02/15/20 06:15 Plt Count 221 x1000/uL (130-400) 02/15/20 06:15 MPV 10.1 fL (8.0-11.0) 02/15/20 06:15 Immature Gran % 0.2 % 02/15/20 06:15 Neutrophils % 66.9 02/15/20 06:15 Lymphocytes % 17.4 02/15/20 06:15 Monocytes % 12.6 02/15/20 06:15 Eosinophils % 2.7 02/15/20 06:15 Basophils % 0.2 02/15/20 06:15 Absolute Neutrophils 4.21 k/cumm (1.2-6.7) 02/15/20 06:15 Absolute Lymphocytes 1.09 k/cumm (1.2-3.4) L 02/15/20 06:15 Absolute Monocytes 0.79 k/cumm (0.11-0.7) H 02/15/20 06:15 Absolute Eosinophils 0.17 k/cumm (0.0-0.7) 02/15/20 06:15 Absolute Basophils 0.01 k/cumm (0.0-0.2) 02/15/20 06:15 PT 18.7 sec (9.3-11.0) H D 02/15/20 06:15 INR 1.9 (0.9-1.1) H D 02/15/20 06:15 APTT 45.9 sec (21.0-31.4) H 02/13/20 06:45 D-Dimer 1191 ng/mlFEU (<500) H 02/13/20 06:25 VBG pH 7.43 (7.35-7.45) 02/13/20 06:45 VBG pCO2 43 mm/Hg (34-47) 02/13/20 06:45 VBG pO2 43 mm/Hg (28-44) 02/13/20 06:45 VBG HCO3 29 mmol/L (22-28) H 02/13/20 06:45 VBG Total CO2 27 mmol/L (22-29) 02/13/20 06:45 VBG O2 Saturation 82 % (70-80) H 02/13/20 06:45 VBG Base Excess 4.6 mmol/L (-3-3) H 02/13/20 06:45 Sodium 138 mmol/L (136-145) 02/15/20 06:15 Potassium 3.7 mmol/L (3.5-5.1) 02/15/20 06:15 Chloride 101 mmol/L (98-107) 02/15/20 06:15 Carbon Dioxide 32.0 mmol/L (21.0-32.0) 02/15/20 06:15 Anion Gap 5.0 mmol/L (3-11) 02/15/20 06:15 BUN 37 mg/dL (7-18) H D 02/15/20 06:15 Creatinine 2.00 mg/dL (0.55-1.02) H 02/15/20 06:15 Estimated GFR/1.73 m2 24.10 (mL/min/1.73m2) 02/15/20 06:15 Glucose 102 mg/dL (74-106) 02/15/20 06:15 Calcium 8.8 mg/dL (8.5-10.1) 02/15/20 06:15 Magnesium 2.0 mg/dL (1.8-2.4) 02/15/20 06:15 Iron 46 ug/dL (50-170) L 02/14/20 06:15 TIBC 212 ug/dL (250-450) L 02/14/20 06:15 Transferrin % Sat 22 % (15-50) 02/14/20 06:15 Ferritin 126 ng/mL (8-252) 02/14/20 06:15 Total Bilirubin 1.1 mg/dL (0.2-1.0) H 02/14/20 06:15 Conjugated Bilirubin 0.24 mg/dL (0.00-0.20) H 02/14/20 06:15 AST 28 U/L (15-37) 02/14/20 06:15 ALT 21 U/L (14-59) 02/14/20 06:15 Alkaline Phosphatase 72 U/L (46-116) 02/14/20 06:15 Troponin I 0.07 ng/Ml (<0.06) 02/13/20 16:50 C-Reactive Protein 9.67 mg/dL (0.0-0.3) H 02/14/20 06:15 NT-Pro-B Natriuret Pep 1270 pg/mL (<300) H 02/13/20 06:45 Total Protein 6.3 g/dL (6.4-8.2) L 02/14/20 06:15 Albumin 3.0 g/dL (3.4-5.0) L 02/14/20 06:15 Procalcitonin < 0.1 ng/mL 02/13/20 07:50 COVID-19 PCR Negative (Negative) 02/13/20 08:00 Nasopharyn COVID-19 PCR Not Applicable 02/13/20 08:00 Ref Test Perform Site [facility] lab 02/13/20 08:00
[2020-02-15] MEDS: Warfarin 5 MG TAB PO (20:04)
--- NOTE | 2020-02-15 20:44 | W.PALLCONSUL ---
Date of service: 02/15/20 Time of Service: 14:50 History of Present Illness History of Present Illness Chief Complaint: goals of care; CHF Narrative: I was asked to see Mrs Lopez due to confusion about her goals of care. She filled out Advance Directives 3 years ago that indicated a minimalist approach to health care interventions. She paperwork indicated that she did not want CPR or intubation. She doesn't want a feeding tube or transfer to a tertiary care center. She is interested in going home as soon as she can; she is planning on moving in with her son and daughter in law and granddaughter shortly. They have a [id number] apartment at their home. She recognizes that she is not doing well living on her own. When I asked if she had discussed her wishes for medical interventions, she said she had. She said she did not want CPR and did not want to be on a breathing machine. She seemed to understand what CPR entailed. I don't want someone pushing on my chest or putting a tube down my throat. She said she had discussed with with her PCP and felt at peace wit her decisions. She wants them to be in place and for her medical team to follow them. Consults Consult date: 02/15/20 Requesting physician: Kathryn Bledsoe Assessment and Plan Assessment and plan (1) Goals of care, counseling/discussion: Status: Acute Assessment and plan: She is looking forward to moving into her son's apartment, but worries about downsizing from a 12 room house to a 3 room apartment. Seems overwhelming to decide what to give away, what to keep, etc. Son and daughter in law will help her. (2) POLST (Physician Orders for Life-Sustaining Treatment): Status: Acute Assessment and plan: She has Advance Directives, but no COLST. Explained the shorter form might be easier for doctors and brand marketing intern to follow. To be sent home with COLST tomorrow. (3) Chronic respiratory failure with hypoxia: Status: Acute Assessment and plan: Encouraged her to wear her oxygen at home. Once she can, she would benefit from cardiac/pulmonary rehab. Review of Systems Constitutional Constitutional: Reports daytime sleepiness, Reports fatigue, Reports lethargy, Reports snoring and Reports weakness Eyes Eyes: Reports dry eyes and Reports requires corrective lenses ENT Ears, Nose, Mouth, and Throat: Reports dizziness Cardiovascular Cardiovascular: Reports lightheadedness, Reports dyspnea on exertion and Reports orthopnea (always sleeps propped up) Respiratory Respiratory: Reports dyspnea on exertion and Reports snoring Gastrointestinal Gastrointestinal: Reports constipation Genitourinary Genitourinary: Reports urinary incontinence Musculoskeletal Musculoskeletal: Reports muscle weakness Integumentary/Breasts Skin/Breast: Reports dry skin Neurologic Neurologic: Reports dizziness and Reports weakness Psychiatric Psychiatric: Reports difficulty concentrating Endocrine Endocrine: Reports fatigue [facility] Medical History (Updated 02/15/20 @ 21:00 by Keshia Calderon MD) Atrial fibrillation (Chronic) Chronic diastolic CHF (congestive heart failure) (Acute) CKD (chronic kidney disease), stage III (Acute) Depression (Chronic) Diverticulosis of colon (Acute) DNI (do not intubate) (Acute) DNR (do not resuscitate) (Acute) Fibromyalgia (Acute) Gastroesophageal reflux (Chronic) Goals of care, counseling/discussion (Acute) History of tobacco use (Acute) Hydronephrosis (Acute) Hyperlipidemia (Acute) Hypertension (Chronic) Intestinal adhesions (Acute) Normocytic anemia (Chronic) NSTEMI (non-ST elevated myocardial infarction) (Inactive) Palliative care patient (Acute) POLST (Physician Orders for Life-Sustaining Treatment) (Acute) done 02/16/20 Pulmonary hypertension (Acute) Respiratory infection (Acute) Systemic lupus erythematosus (Chronic) Surgical History History of hysterectomy (Chronic) History of partial colectomy (Acute) partial bowel resection-colectomy with colosotmy ad reversal, abdominal adhesions History of surgical removal of ganglion cyst (Acute) both wrists History of tonsillectomy and adenoidectomy (Acute) Hx of bilateral cataract extraction (Acute) Hx of section (Chronic) Hx of knee surgery (Acute) S/p bilateral carpal tunnel release (Acute) Family History (Updated 02/15/20 @ 21:01 by Keshia Calderon MD) Father Heart disease Diabetes Mother Heart disease Hypertension Son Diabetes Granddaughter No problems noted. Granddaughter No problems noted. Social History (Updated 02/15/20 @ 21:04 by Keshia Calderon MD) Smoking/Tobacco Use Status: Former Tobacco Use Alcohol Intake: current Alcohol Intake frequency: holidays/special occasions only Drug use: Never Substance use type: does not use Details: quit smoking in 2006 for second time Caregiver/Support person: No Household members: none Housing: house Communication Needs: Hard of Hearing and Corrective Lenses Education Level: high school Do you need help understanding health information?: Always How often do you talk on the phone with friends or family?: three or more times per week How often do you get together with friends or relatives?: three or more times per week Panel score (0-1 are the most socially isolated patients): 1 What type of physical activity do you participate in: walking and sedentary lifestyle Duration: < 15 minutes/day Special marci needs: No Seatbelt use: always Do you feel safe at home: Yes Do you feel safe in your relationship?: Yes Additional Social history: Planning on moving into attached apartment to her son's home. He lives there with his second and their 8 yo daughter. She also has grandchild from his first marriage; that granddaughter has children of her own. Family very important to her. Realizing she is needing more help. Feels fortunate to have it available to her. Exam Narrative Exam Narrative: General: Obese elderly female, A&Ox3, looks comfortable, mildly tachypneic after talking HEENT: EOMI, MMM, no rhinnorhea Eyes: anicteric, non injected Heart: RRR, borderline tachy, no obvious murmur Lungs: quiet crackles at B bases,no increased WOB Abdomen: soft, nontender, nondistended, obese Extremities: trace edema BLE's, no c/c Neuro: A and O x 3, able to give a decent history, no evidence of any cognitive impairment Psych: a bit anxious; eager to be discharged, planned for tomorrow skin: flushed cheeks, no rashes Results Last Vital Signs Temp 98.1 F 02/15/20 18:50 Pulse 66 02/15/20 18:50 Resp 20 02/15/20 18:50 BP 146/88 H 02/15/20 18:50 Pulse Ox 96 02/15/20 18:50 Labs Result diagrams: 02/15/20 13:50 02/15/20 06:15 Labs: Laboratory Results - last 24 hr 02/15/20 02/15/20 02/15/20 06:15 06:15 06:15 WBC 6.28 RBC 3.21 L Hgb 9.4 L Hct 30.6 L MCV 95.3 H MCH 29.3 MCHC 30.7 L RDW 14.4 Plt Count 221 MPV 10.1 Immature Gran % 0.2 Neutrophils % 66.9 Lymphocytes % 17.4 Monocytes % 12.6 Eosinophils % 2.7 Basophils % 0.2 Absolute Neutrophils 4.21 Absolute Lymphocytes 1.09 L Absolute Monocytes 0.79 H Absolute Eosinophils 0.17 Absolute Basophils 0.01 PT 18.7 H D INR 1.9 H D Sodium 138 Potassium 3.7 Chloride 101 Carbon Dioxide 32.0 Anion Gap 5.0 BUN 37 H D Creatinine 2.00 H Estimated GFR/1.73 m2 24.10 Glucose 102 Calcium 8.8 Magnesium 2.0 02/15/20 13:50 WBC RBC Hgb 9.8 L Hct 31.4 L MCV MCH MCHC RDW Plt Count MPV Immature Gran % Neutrophils % Lymphocytes % Monocytes % Eosinophils % Basophils % Absolute Neutrophils Absolute Lymphocytes Absolute Monocytes Absolute Eosinophils Absolute Basophils PT INR Sodium Potassium Chloride Carbon Dioxide Anion Gap BUN Creatinine Estimated GFR/1.73 m2 Glucose Calcium Magnesium
[2020-02-15] MEDS: Pramipexole 0.25 MG TAB 0.125 MG PO (21:57)
[2020-02-15] MEDS: Amitriptyline 50 MG TAB PO (21:58)
[2020-02-16 02:54] VITALS: BP 118/61; PULSE 61; RESP 18; TEMP 37; O2SAT 98
[2020-02-16 07:07] LABS: Anion Gap 6.8 mmol/L (3-11); BUN 34 mg/dL (7-18); C-Reactive Protein 6.15 mg/dL (0.0-0.3); CO2 32.2 mmol/L (21.0-32.0); CREATININE 1.81 mg/dL (0.55-1.02); Calcium 8.9 mg/dL (8.5-10.1); Chloride 100 mmol/L (98-107); Estimated GFR 27.04 (mL/min/1.73m2); Glucose 98 mg/dL (74-106); Magnesium 1.9 mg/dL (1.8-2.4); Potassium 3.3 mmol/L (3.5-5.1); Sodium 139 mmol/L (136-145)
[2020-02-16 07:11] LABS: INR 1.5 (0.9-1.1); Prothrombin Time 14.9 sec (9.3-11.0)
[2020-02-16 08:12] VITALS: BP 138/62; PULSE 65; RESP 17; TEMP 36.6; O2SAT 95
[2020-02-16] MEDS: Aspirin E.C. 81 MG TABEC PO (08:13)
[2020-02-16] MEDS: Amiodarone 200 MG TAB PO (08:13)
[2020-02-16] MEDS: Multivitamin w/Minerals TAB 1 TAB PO (08:13)
[2020-02-16] MEDS: Atorvastatin 20 MG TAB PO (08:14)
[2020-02-16] MEDS: Metoprolol 50 MG TAB PO (08:14)
[2020-02-16] MEDS: Cholecalciferol (Vitamin D3) 1,000 UNIT TAB 1000 UNITS PO (08:14)
[2020-02-16] MEDS: hydrALAZINE 10 MG TAB PO ×2 (08:14→14:51)
[2020-02-16] MEDS: Cyanocobalamin 500 MCG TAB 1000 MCG PO (08:14)
[2020-02-16] MEDS: Hydroxychloroquine 200 MG TAB PO (08:14)
[2020-02-16] MEDS: Pantoprazole 40 MG TABCR PO (08:14)
[2020-02-16] MEDS: Furosemide 80 MG TAB PO ×2 (08:14→16:48)
[2020-02-16] MEDS: traMADol 50 MG TAB PO (08:14)
[2020-02-16 09:24] LABS: Procalcitonin < 0.1 ng/mL
--- NOTE | 2020-02-16 10:40 | PT.INDS ---
Date of service: 02/16/20 Time of Service: 08:45 PT Notes Visit Reasons: CAP, ACUTE EXACERBATION OF COMBINED CHF, ?COVID-19 Inpatient Physical Therapy Discharge Summary Dates: February 16, 2020 Dates of Service: 02/14/2020-02/16/2020 SUBJECTIVE: Chandni notes that she is feeling well. She reports that she will be going home today. She has been up with diarrhea due to the miralax that she utilized yesterday. OBJECTIVE: General Observation:Patient up getting her self washed up preparing to go home upon entering room Mental Status: Alert and oriented x4. Pain: Declines any pain Vital Signs: Oxygen saturation ranged from 90% through 94% on room air throughout ambulation activity ROM: Right Upper Extremity: Shoulder Flexion WFL. Shoulder abduction WFL. Elbow flexion WFL. Wrist flexion WFL. Opening and closing of hand WFL. Left Upper Extremity: Shoulder Flexion WFL. Shoulder abduction WFL. Elbow flexion WFL. Wrist flexion WFL. Opening and closing of hand WFL. Right Lower Extremity: Hip flexion WFL. Hip abduction WFL. Knee flexion WFL. Ankle dorsiflexion WFL. Ankle plantarflexion WFL. Left Lower Extremity: Hip flexion WFL. Hip abduction WFL. Knee flexion WFL. Ankle dorsiflexion WFL. Ankle plantarflexion WFL. Strength: Right Upper Extremity: Shoulder flexors 5/5. Shoulder abductors 5/5. Elbow flexors 5/5. Elbow extensors 5/5. [employer]der strong. Left Upper Extremity: Shoulder flexion 4/5, abductors 4/5, elbow flexors 4/5, elbow extensors 4/5. Arc [employer]der strong Right Lower Extremity: Hip flexors 4/5. Hip abductors 4/5. Knee flexors 4/5. Knee extensors 4/5. Ankle dorsiflexors 4/5. Ankle plantarflexors 4/5. Left Lower Extremity: Hip flexors 4/5. Hip abductors 4/5. Knee flexors 4/5. Knee extensors 4/5. Ankle dorsiflexors 4/5. Ankle plantarflexors 4/5. Sensation: N/A Bed Mobility/Transfers: Sit to stand Independent Stand to sit Independent Bed to chair Independent Chair to bed Independent Gait: Patient was able to tolerate 300 feet without an assistive device with supervision. Oxygens saturation fluctuating between 90% to 94% on room air. Demonstrated good araceli with good reciprocal arm swing. Balance: Static Sitting: Normal Dynamic Sitting: Normal Static Standing: Normal Dynamic Standing: Good Therex: Patient completed LAQ 10x R/L, seated hip flexion and abduction 10x R/L, standing hip flexion, abduction and extension 10x R/L followed by SS for 10x R/L and standing heel raise x15. Patient then sat for brief rest completing shoulder flexion, elbow flexion 10x R/L. Assessment: Patient demonstrated I with all functional transfers and mobility. Improved endurance tolerating ambulation on room air with good saturation levels. Emphasized continued pacing techniques at home. Goals: Goals X1 week 1. Supine-Sit independent (MET) 2. Sit-Supine independent (MET) 3. Sit-Stand independent (MET) 4. Stand-Sit independent (MET) 5. Bed-Chair independent (MET) 6. Chair-Bed independent (MET) 7. Independent gait on level surface without an assistive device for at least 300 feet at above 90% on 2 L of oxygen supplementation per minute without report of pain nor dyspnea (MET) 8. Independent stair negotiation while holding onto bilateral rails for at least 10 steps at above 90% on 2 L of oxygen supplementation per minute without report of pain nor dyspnea (MET) 9. Independent with home exercise program (MET) 10. Good static and dynamic standing balance/tolerance (MET) Plan of Care/Treatment Plan: Patient to be discharged from skilled PT at this time. DISCHARGE RECOMMENDATIONS: Patient will benefit from home health PT services in order to progress mobility level using no assistive ambulatory device, assess home safety, identify additional equipment needs, and establish a functional maintenance program that will increase ability of patient to remain at home. No equipment needs at this time. TREATMENT CODE/TIME: [id number] 30 minutes 8:45 AM MENA Ashton
[2020-02-16] MEDS: Potassium Chloride 10 MEQ CAPCR 40 MEQ PO (11:13)
[2020-02-16 11:46] VITALS: PULSE 69; PULSE 82; PULSE 86; RESP 16; RESP 18; RESP 25; O2SAT 90; O2SAT 97
[2020-02-16 11:47] VITALS: BP 154/70; PULSE 73; RESP 18; TEMP 36.5; O2SAT 95
--- NOTE | 2020-02-16 14:35 | DSE_ITS ---
Date of service: 02/16/20 Time of Service: 14:35 DS: Diagnosis Discharge Diagnosis (1) Acute on chronic diastolic CHF (congestive heart failure), NYHA class 1: Status: Acute (2) Elevated troponin: Status: Acute (3) Chronic respiratory failure with hypoxia: Status: Chronic (4) Paroxysmal atrial fibrillation: Status: Chronic (5) Pulmonary hypertension: Status: Acute (6) Normocytic anemia: Status: Chronic (7) Supratherapeutic INR: Status: Resolved (8) Fall: Status: Acute (9) Ambulatory dysfunction: Status: Chronic (10) CAP (community acquired pneumonia): Status: Ruled-out (11) COVID-19 ruled out: Status: Acute Discharge Plan Disposition Patient Disposition: HOME W/HOME HEALTH SERVICE Condition: Stable Discharge Details Chief Complaint: SOB Clinical Impression: Acute diastolic CHF (congestive heart failure), Shortness of breath Reason For Visit: CAP, ACUTE EXACERBATION OF COMBINED CHF, ?COVID-19 Admit Date/Time: 02/13/20 07:49 Admit Provider: Kathryn Bledsoe Attending Provider: Kathryn Bledsoe Primary Care Provider: Lyubov Tee V ED Provider: Mirza Yanes [facility] Course Hospital Course: Ms Lopez is a 79 year old female with PMHx of chronic hypoxic respiratory failure on 2L of O2 at home prn, as well as chronic diastolic CHF, paroxysmal Afib, pulmonary hypertension, who was admitted to [facility] hospitalist service on 02/13/2020 with acute on chronic hypoxic respiratory failure. Infectious etiology, including COVID-19 and bacterial pneumonia, was ruled out. She had a very mildly elevated troponin, which was actually lower than on her prior visit and is felt to represent mild cardiac strain rather than an ACS. The patient improved markedly with diuresis, was switched to PO lasix, which she is tolerating, and is stable for discharge home today. She was educated by our leach tank tender on salt-restriction, with which there was noncompliance. The patient requires O2 only as needed and at night; her ambulatory pulse ox was >90% on room air on discharge. The patient is on anticoagulation and has heme+ stools. Her hemoglobins have remained stable, but she will need outpatient GI workup. She is maintained on anticoagulation on discharge. INR is 1.5 on discharge, next INR is due on 02/18/2020 - to be done by home health nursing. The patient met with palliative care and firmly decided on DNR/DNI. She should have a sleep study as outpatient. Patient is asked to weigh herself daily and record her weights. She is asked to contact her PCP with any weight changes of >3 Lbs in 3 days. She is getting discharge home with home health nursing and PT. Care for patient as well as completion of her discharge summary took 45 minutes. Home Meds and New Rx's Prescriptions: Continued tramadol [Ultram] 50 MG tablet 50 mg PO BID RF: 0 pantoprazole [Protonix] 40 MG tablet,delayed release (DR/EC) 40 mg PO DAILY RF: 0 hydroxychloroquine 200 MG tablet 200 mg PO DAILY RF: 0 Savella 50 MG tablet 50 mg PO BID RF: 0 atorvastatin [Lipitor] 20 mg Tablet 20 mg DAILY RF: 0 nitroglycerin 0.4 mg tablet, sublingual 0.4 mg SL Q5-15M PRN (Reason: chest pain) Qty: 20 RF: 0 aspirin 81 mg tablet,delayed release (DR/EC) 81 mg PO DAILY Qty: 30 RF: 0 hydralazine 10 mg Tablet 10 mg PO TID Qty: 0 RF: 0 amiodarone [Pacerone] 200 mg Tablet 200 mg PO DAILY Qty: 0 RF: 0 metoprolol tartrate 50 mg Tablet 50 mg PO DAILY Qty: 0 RF: 0 loratadine 10 mg Tablet 10 mg PO DAILY PRN PRNQty: 0 RF: 0 cholecalciferol (vitamin D3) [Vitamin D3] 1,000 unit Capsule 1,000 unit PO DAILY RF: 0 polyethylene glycol 3350 [Miralax] 17 gram Powder In Packet 17 g PO DAILY RF: 0 multivitamin with minerals [Multiple Vitamin-Minerals] Tablet 1 tab PO DAILY RF: 0 albuterol sulfate 2.5 mg /3 mL (0.083 %) Solution For Nebulization 2.5 mg continuous nebulization RF: 0 docusate calcium 240 mg Capsule 240 mg PO BID RF: 0 meclizine 12.5 mg Tablet 12.5 mg PO BID PRNRF: 0 pramipexole [Mirapex] 0.125 mg Tablet 0.125 mg PO DAILY RF: 0 albuterol sulfate [ProAir HFA] 90 mcg/actuation Hfa Aerosol Inhaler 90 mcg INHALATION RF: 0 vitamin [id number] acid 1,000-400 mcg Lozenge 1,000 laine SUBLINGUAL DAILY RF: 0 furosemide 40 mg tablet 80 mg PO BID RF: 0 amitriptyline 50 mg tablet 50 mg PO HS RF: 0 warfarin 5 mg Tablet 5 - 25 mg PO DAILY Qty: 0 RF: 0 Discharge Instructions Instructions: Heart Failure (DC), DASH Eating Plan (DC), Low-Sodium Diet (ED) Additional Instructions: Wear a mask when going outside and in vicinity of other people inside or outside. Return to the hospital with any fever, bleeding, chest pain, or shortness of breath. Weigh yourself daily - call PCP if gaining >3 lbs in 3 days. Take your time when changing positions - give your body 1-2 minutes to adjust when going from laying to sitting or sitting to standing; you will feel less dizzy. Do not wear slippers at home - they increase your risk of falls. Care Plan Goals: Home with home health nursing and PT. INR 02/18/2020. Stand Alone Forms: Nursing Discharge Form Referrals: [facility] [OTHER] - Lyubov Tee MD [Primary Care Provider] - Keshia Calderon MD [ [facility] STAFF PHYSICIAN] - (1-2 month follow up) Activity:: Activity as Tolerated Equipment/Supplies:: No Equipment Needed Diet:: Low Sodium Discharge Orders Discharge Orders: Discharge Order (Routine); Ordered 02/16/20 Ordered By: Kathryn Bledsoe DS: Summary Status at Discharge Functional status at discharge: independent ambulation Overall status at discharge: patient is back to baseline Mental Status: mental status grossly normal Speech and Movement: speech and movement normal Mood: congruent mood Affect: normal affect Exam Narrative Exam Narrative: General: Talkative obese female, A&Ox3, looks mildly anxious, but well HEENT: EOMI, MMM Heart: RRR Lungs: CTAB Abdomen: soft, nontender, nondistended Extremities: no edema BLE's, no c/c Psych Mental Status: mental status grossly normal Speech and Movement: speech and movement normal Mood: congruent mood Affect: normal affect DS: Data Vitals/I&O Vitals and I&O: Vital Signs Temperature 36.5 C 02/16/20 11:47 Temperature Source Temporal Artery Scan 02/16/20 11:47 Pulse 73 02/16/20 11:47 Pulse Rhythm Regular 02/16/20 08:15 Pulse 78 02/13/20 07:53 Respiratory Rate 18 02/16/20 11:47 Respiratory Effort 02/16/20 08:15 Respiratory Depth Normal 02/16/20 08:15 Respiratory Pattern Normal 02/16/20 08:15 Blood Pressure 154/70 H 02/16/20 11:47 Blood Pressure Mean 68 02/13/20 07:53 Pulse Oximetry 95 02/16/20 11:47 Oxygen Delivery Method Room Air 02/16/20 11:47 Oxygen Flow Rate 0 02/16/20 11:47 Pain Level 0 02/16/20 11:47 Comment 02/14/20 01:35 Intake & Output 02/15/20 02/16/20 02/16/20 23:59 11:59 23:59 Intake Total 240 / 610 360 / 850 490 / 850 Balance 240 / 610 360 / 850 490 / 850 Weight 98.9 kg Intake: Oral 240 / 610 360 / 850 490 / 850 Other: Urine Color Yellow Urine Appearance Clear Clear Comment voiding in toilet pt voids independently. Stool Occult Blood Positive Stool Size Moderate Stool Characteristics Liquid Voiding Methods Toilet Toilet Data Completed and Pending Completed studies during hospitalization [Text1]: CXR 02/13/2020: Increased lung markings in the right base. This may represent atelectasis, scarring or pneumonia. Labs on day of discharge: Labs from last 24 hours 02/16/20 02/16/20 02/16/20 06:17 06:17 06:17 PT 14.9 H INR 1.5 H Sodium 139 Potassium 3.3 L Chloride 100 Carbon Dioxide 32.2 H Anion Gap 6.8 BUN 34 H Creatinine 1.81 H Estimated GFR/1.73 m2 27.04 Glucose 98 Calcium 8.9 Magnesium 1.9 C-Reactive Protein 6.15 H Procalcitonin < 0.1 Preliminary micro results at discharge 02/13/20 06:25 Blood Culture - Preliminary Blood NO GROWTH 72 HOURS 02/13/20 07:50 Blood Culture - Preliminary Blood NO GROWTH 72 HOURS [facility] Medical History (Updated 02/16/20 @ 15:29 by Kathryn Bledsoe MD) Atrial fibrillation (Chronic) Chronic diastolic CHF (congestive heart failure) (Acute) CKD (chronic kidney disease), stage III (Acute) Depression (Chronic) Diverticulosis of colon (Acute) DNI (do not intubate) (Acute) DNR (do not resuscitate) (Acute) Fibromyalgia (Acute) Gastroesophageal reflux (Chronic) Goals of care, counseling/discussion (Acute) History of tobacco use (Acute) Hydronephrosis (Acute) Hyperlipidemia (Acute) Hypertension (Chronic) Intestinal adhesions (Acute) Normocytic anemia (Chronic) NSTEMI (non-ST elevated myocardial infarction) (Inactive) Palliative care patient (Acute) POLST (Physician Orders for Life-Sustaining Treatment) (Acute) done 02/16/20 Pulmonary hypertension (Acute) Respiratory infection (Acute) Systemic lupus erythematosus (Chronic) Surgical History History of hysterectomy (Chronic) History of partial colectomy (Acute) partial bowel resection-colectomy with colosotmy ad reversal, abdominal adhesions History of surgical removal of ganglion cyst (Acute) both wrists History of tonsillectomy and adenoidectomy (Acute) Hx of bilateral cataract extraction (Acute) Hx of section (Chronic) Hx of knee surgery (Acute) S/p bilateral carpal tunnel release (Acute) Family History (Updated 02/15/20 @ 21:01 by Keshia Calderon MD) Father Heart disease Diabetes Mother Heart disease Hypertension Son Diabetes Granddaughter No problems noted. Granddaughter No problems noted. Social History (Updated 02/15/20 @ 21:04 by Keshia Calderon MD) Smoking/Tobacco Use Status: Former Tobacco Use Alcohol Intake: current Alcohol Intake frequency: holidays/special occasions only Drug use: Never Substance use type: does not use Details: quit smoking in 2006 for second time Caregiver/Support person: No Household members: none Housing: house Communication Needs: Hard of Hearing and Corrective Lenses Education Level: high school Do you need help understanding health information?: Always How often do you talk on the phone with friends or family?: three or more times per week How often do you get together with friends or relatives?: three or more times per week Panel score (0-1 are the most socially isolated patients): 1 What type of physical activity do you participate in: walking and sedentary lifestyle Duration: < 15 minutes/day Special marci needs: No Seatbelt use: always Do you feel safe at home: Yes Do you feel safe in your relationship?: Yes Additional Social history: Planning on moving into attached apartment to her son's home. He lives there with his second and their 8 yo daughter. She also has grandchild from his first marriage; that granddaughter has children of her own. Family very important to her. Realizing she is needing more help. Feels fortunate to have it available to her.
--- NOTE | 2020-02-16 15:30 | PDOC.CMDIS ---
- If Service Date Differs Date of service: 02/16/20 Time of Service: 15:30 LACE Index Scoring Tool - Questions: Length of Stay (in days): 4 - 6 Acuity (Admit via E.D.?): Yes Comorbidities: Congestive Heart Failure E.D. Visits: 3 - Answers: Total Score: 12 Risk of Readmission: High Risk Care Management Discharge Reason for Hospitalization: CAP, Acute Exacerbation of combined CHF Discharge Plan: Chandni will return home with new RN, PT. CM contacted regarding the referral. She has current home O2, which she will resume, as needed with ambulation. Her daughter in law will drive her home via private vehicle. She will follow up with her PCP and discharge plan of care. She states that she is happy to be going home. Patient/Family Education Needs: Review discharge instructions regarding activity levels and medications, discussion of self care needs including ask me three and goals of care.
--- NOTE | 2020-02-16 15:51 | PDOC.HHF2F_ITS ---
Home Health Certification Home Health Certification: 1. Encounter Date and Reason I certify that NICOLE ATKINS was seen by Kathryn Bledsoe on 02/16/20 and that I had a [id number] encounter with this patient that meets the physician face to face encounter requirements. 2. Clinical Findings Supporting Skilled Need and Homebound Status I certify that home health services are medically necessary, include either intermittent [place] [facility] and/or physical/speech therapy, and that this patient is homebound in that absences from the home require considerable and taxing effort and are infrequent or of short duration, or are attributable to the need to receive medical care. [X] (a) Attached documentation from encounter provides clinical findings supporting skilled need and homebound status (including what assistance patient requires to leave the home). The encounter with the patient was in whole, or in part, for the following medical condition, which is the primary reason for home health care: CAP, ACUTE EXACERBATION OF COMBINED CHF, ?COVID-19 Jail: CHF, subtherapeutic INR. Needs medication teaching, assessment of weights, vitals. INR to be drawn on 02/18/2020 - results to PCP Physical Therapy: eval and treat Homebound: unable to leave home without assistance 3. Certification and Authentication I certify that I composed the above information based on my clinical judgement relating to this patient's medical condition and, if applicable, clinical findings communicated to me by the NPP or inpatient physician who performed the Home Health Referral. All further orders will be obtained through __Dr Tee (Community Based Physician - PCP)
== END 2020-02-16 16:57 | disposition home health service (06) | DRG 291 ==
LOC: ER 08:25 → MS 09:19
PROVIDERS: Admitting Provider Internal Medicine; Emergency Provider Emergency Medicine; PCP Family Medicine; Visit Provider Internal Medicine
DX: I50.33 Acute on chronic diastolic (congestive) heart failure (principal); J96.21 Acute and chronic respiratory failure with hypoxia; I24.8 Other forms of acute ischemic heart disease; I11.0 Hypertensive heart disease with heart failure; I48.0 Paroxysmal atrial fibrillation; I27.20 Pulmonary hypertension, unspecified; R19.5 Other fecal abnormalities; D64.9 Anemia, unspecified; Z03.818 Encounter for observation for suspected exposure to other biological agents ruled out; R79.1 Abnormal coagulation profile; Z79.01 Long term (current) use of anticoagulants; T45.515A Adverse effect of anticoagulants, initial encounter; R29.6 Repeated falls; Z99.81 Dependence on supplemental oxygen; Z91.11 Patient's noncompliance with dietary regimen; Z51.5 Encounter for palliative care; Z66 Do not resuscitate; E78.5 Hyperlipidemia, unspecified; K21.9 Gastro-esophageal reflux disease without esophagitis; Z71.89 Other specified counseling
CPT/HCPCS: 36415; 80048; 80053; 80076; 82805; 84145; 87040; 87449; 93005; 94640; 96374; 97110; 97162; 97530; 99223; 99232; 99233; 99239; 99254; 99285; U0003; 71045; 82728; 83540; 83550; 83735; 83880; 84484; 85014; 85018; 85025; 85379; 85610; 85730; 86140; 93010; J0696; J1940; J3490

== ENCOUNTER 2020-02-28 02:17 | Outpatient (CLI) | payer MEDICARE, OTHER, SELFPAY ==
[2020-02-28 14:27] LABS: Prothrombin Time 38.8 sec (9.3-11.0)
[2020-02-28 15:06] LABS: Anion Gap 5.9 mmol/L (3-11); BUN 36 mg/dL (7-18); CO2 33.1 mmol/L (21.0-32.0); CREATININE 2.37 mg/dL (0.55-1.02); Calcium 8.7 mg/dL (8.5-10.1); Chloride 100 mmol/L (98-107); Estimated GFR 19.81 (mL/min/1.73m2); Glucose 118 mg/dL (74-106); NT-proBNP 453 pg/mL (<300); Potassium 3.8 mmol/L (3.5-5.1); Sodium 139 mmol/L (136-145)
== END 2020-02-28 02:37 ==
PROVIDERS: PCP Family Medicine; Visit Provider Family Medicine
DX: I50.9 Heart failure, unspecified (principal); Z79.01 Long term (current) use of anticoagulants
CPT/HCPCS: 80048; 83735; 83880; 85610

== ENCOUNTER 2020-03-14 16:40 | Outpatient (REF) | payer MEDICARE, OTHER, SELFPAY ==
[2020-03-14 19:53] LABS: Anion Gap 4.3 mmol/L (3-11); CO2 34.7 mmol/L (21.0-32.0); Chloride 100 mmol/L (98-107); Potassium 3.6 mmol/L (3.5-5.1); Sodium 139 mmol/L (136-145)
[2020-03-14 20:15] LABS: ALT 32 U/L (14-59); AST 35 U/L (15-37); Albumin 3.8 g/dL (3.4-5.0); Alkaline Phosphatase 92 U/L (46-116); BUN 28 mg/dL (7-18); Bilirubin, Total 0.5 mg/dL (0.2-1.0); C-Reactive Protein 0.26 mg/dL (0.0-0.3); CREATININE 2.13 mg/dL (0.55-1.02); Calcium 8.6 mg/dL (8.5-10.1); Estimated GFR 22.41 (mL/min/1.73m2); Glucose 85 mg/dL (74-106); Magnesium 2.1 mg/dL (1.8-2.4); Total Protein 6.9 g/dL (6.4-8.2)
== END 2020-03-14 17:00 ==
LOC: NCHCN 16:40
PROVIDERS: PCP Family Medicine; Visit Provider Family Medicine
DX: I48.91 Unspecified atrial fibrillation (principal); I50.9 Heart failure, unspecified; R60.0 Localized edema; N18.9 Chronic kidney disease, unspecified
CPT/HCPCS: 80053; 83735; 86140

== ENCOUNTER 2020-05-12 02:30 | Outpatient (CLI) | payer MEDICARE, OTHER, SELFPAY ==
[2020-05-12 12:54] LABS: Abs Immature Grans 0.01 k/cumm (0.0-0.09); Absolute Basophil Count 0.01 k/cumm (0.0-0.2); Absolute Eosinophil Count 0.14 k/cumm (0.0-0.7); Absolute Lymphocyte Count 1.43 k/cumm (1.2-3.4); Absolute Monocyte Count 0.67 k/cumm (0.11-0.7); Absolute Neutrophil Count 4.71 k/cumm (1.2-6.7); Basophils % 0.1; HCT 33.8 % (36.0-46.0); HGB 10.7 g/dL (12.0-15.5); Immature Grans % 0.1 %; Lymphocytes % 20.5; Mean Corp. HGB Concentration 31.7 g/dL (32.0-36.0); Mean Corpuscular Hemoglobin 30.5 pg (27.0-33.0); Mean Corpuscular Volume 96.3 fL (80-95); Mean Platelet Volume 9.5 fL (8.0-11.0); Monocytes % 9.6; Neutrophils % 67.7; Platelet Count 274 x1000/uL (130-400); RBC 3.51 m/cumm (4.00-5.20); RBC Distribution Width 13.9 % (11.7-14.6); White Blood Cell Count 6.97 k/cumm (4.4-10.8)
[2020-05-12 13:12] LABS: INR 1.5 (0.9-1.1); Prothrombin Time 14.8 sec (9.3-11.0)
[2020-05-12 13:51] LABS: Anion Gap 9.4 mmol/L (3-11); BUN 39 mg/dL (7-18); CO2 30.6 mmol/L (21.0-32.0); CREATININE 2.29 mg/dL (0.55-1.02); Chloride 99 mmol/L (98-107); Estimated GFR 20.61 (mL/min/1.73m2); Glucose 113 mg/dL (74-106); NT-proBNP 485 pg/mL (<300); Sodium 139 mmol/L (136-145)
== END 2020-05-12 02:50 ==
PROVIDERS: PCP Family Medicine; Visit Provider Internal Medicine Cardiovascular Disease
DX: R06.00 Dyspnea, unspecified (principal); R07.9 Chest pain, unspecified; I50.9 Heart failure, unspecified; I48.0 Paroxysmal atrial fibrillation; Z79.01 Long term (current) use of anticoagulants
CPT/HCPCS: 36415; 80048; 83880; 85025; 85610

== ENCOUNTER 2020-05-30 04:39 | Outpatient (CLI) | payer MEDICARE, OTHER, SELFPAY ==
[2020-05-30 12:42] LABS: Anion Gap 6.7 mmol/L (3-11); BUN 29 mg/dL (7-18); CO2 33.3 mmol/L (21.0-32.0); CREATININE 2.07 mg/dL (0.55-1.02); Calcium 8.8 mg/dL (8.5-10.1); Chloride 103 mmol/L (98-107); Estimated GFR 23.16 (mL/min/1.73m2); Glucose 113 mg/dL (74-106); Sodium 143 mmol/L (136-145)
== END 2020-05-30 04:59 ==
PROVIDERS: PCP Family Medicine; Visit Provider Internal Medicine Cardiovascular Disease
DX: I48.0 Paroxysmal atrial fibrillation (principal); E78.5 Hyperlipidemia, unspecified
CPT/HCPCS: 36415; 80048

== ENCOUNTER 2020-07-18 11:49 | Outpatient (REF) | payer MEDICARE, OTHER, SELFPAY ==
[2020-07-18 12:53] LABS: Anion Gap 8.2 mmol/L (3-11); BUN 29 mg/dL (7-18); C-Reactive Protein 0.64 mg/dL (0.0-0.3); CO2 30.8 mmol/L (21.0-32.0); CREATININE 2.19 mg/dL (0.55-1.02); Calcium 8.8 mg/dL (8.5-10.1); Chloride 103 mmol/L (98-107); Estimated GFR 21.64 (mL/min/1.73m2); Glucose 106 mg/dL (74-106); Potassium 4.1 mmol/L (3.5-5.1); Sodium 142 mmol/L (136-145)
[2020-07-18 13:06] LABS: Abs Immature Grans 0.02 10^3/uL (0.0-0.06); Absolute Basophil Count 0.02 10^3/uL (0.0-0.2); Absolute Eosinophil Count 0.15 10^3/uL (0.0-0.7); Absolute Lymphocyte Count 0.93 10^3/uL (1.2-3.4); Absolute Monocyte Count 0.68 10^3/uL (0.1-0.8); Absolute Neutrophil Count 4.76 10^3/uL (1.2-6.7); Basophils % 0.3; Eosinophils % 2.3; HCT 32.4 % (36.0-46.0); HGB 10.3 g/dL (11.2-15.7); Immature Grans % 0.3; Lymphocytes % 14.2; MCH 30.8 pg (27.0-33.0); MCHC 31.8 % (32.0-36.0); MPV 10.5 fL (8.0-11.0); Monocytes % 10.4; Neutrophils % 72.5; Nucleated RBC 0 %; Platelet Count 288 10^3/uL (130-400); RBC 3.34 10^6/uL (3.93-5.22); RDW 12.9 % (11.7-14.6); RDW-SD 46.3 fL; WBC 6.56 10^3/uL (4.4-10.8)
[2020-07-18 14:20] LABS: ESR 52 mm/hr (0-30)
== END 2020-07-18 12:09 ==
LOC: NCHCN 11:49
PROVIDERS: PCP Family Medicine; Visit Provider Nurse Practitioner Family
DX: M25.562 Pain in left knee (principal)
CPT/HCPCS: 80048; 85652; 84550; 85025; 86140

== ENCOUNTER 2020-07-18 14:43 | Outpatient (CLI) | payer MEDICARE, OTHER, SELFPAY ==
--- NOTE | 2020-07-18 11:32 | DI.RAD_ITS ---
EXAM: XR KNEE LT 3V AP,LAT,ROBERTH CLINICAL HISTORY: LT KNEE PAIN, M25.562 TECHNIQUE: 2D digital imaging was performed. COMPARISON: No exams were available for comparison FINDINGS: No fracture or joint effusion is seen. A total knee prosthesis is seen. IMPRESSION: No acute abnormality.
== END 2020-07-18 15:03 ==
PROVIDERS: PCP Family Medicine; Visit Provider Nurse Practitioner Family
DX: M25.562 Pain in left knee (principal); Z96.652 Presence of left artificial knee joint
CPT/HCPCS: 73562

== ENCOUNTER 2020-07-20 09:49 | Outpatient (CLI) | payer MEDICARE, OTHER, SELFPAY | END 2020-07-20 10:09 | PROVIDERS: PCP Family Medicine; Visit Provider Orthopaedic Surgery | DX: M25.562 Pain in left knee (principal); Z96.652 Presence of left artificial knee joint; I13.0 Hypertensive heart and chronic kidney disease with heart failure and stage 1 through stage 4 chronic kidney disease, or unspecified chronic kidney disease; N18.30 Chronic kidney disease, stage 3 unspecified; I50.32 Chronic diastolic (congestive) heart failure; W19.XXXA Unspecified fall, initial encounter | CPT/HCPCS: 20610; 99214; J1040 ==

== ENCOUNTER 2020-07-25 14:44 | Outpatient (REF) | payer MEDICARE, OTHER, SELFPAY | END 2020-07-25 15:04 | LOC: NCHCN 14:44 | PROVIDERS: PCP Family Medicine; Visit Provider Nurse Practitioner Family | DX: N39.0 Urinary tract infection, site not specified (principal) | CPT/HCPCS: 87077; 87086; 87186 ==

== ENCOUNTER 2020-08-17 11:54 | Outpatient (REF) | payer MEDICARE, OTHER, SELFPAY ==
[2020-08-17 18:58] LABS: HGB 11.2 g/dL (11.2-15.7)
[2020-08-17 19:15] LABS: Anion Gap 7.8 mmol/L (3-11); BUN 41 mg/dL (7-18); CO2 31.2 mmol/L (21.0-32.0); CREATININE 2.67 mg/dL (0.55-1.02); Calcium 8.9 mg/dL (8.5-10.1); Chloride 101 mmol/L (98-107); Estimated GFR 17.22 (mL/min/1.73m2); Glucose 100 mg/dL (74-106); Potassium 3.8 mmol/L (3.5-5.1); Sodium 140 mmol/L (136-145)
== END 2020-08-17 12:14 ==
LOC: NCHCN 11:54
PROVIDERS: PCP Family Medicine; Visit Provider Family Medicine
DX: I48.91 Unspecified atrial fibrillation (principal); I50.9 Heart failure, unspecified; D64.9 Anemia, unspecified; N18.9 Chronic kidney disease, unspecified; R10.9 Unspecified abdominal pain
CPT/HCPCS: 80048; 85014; 85018

== ENCOUNTER → 2020-08-31 09:57 | Outpatient (BNVA) | payer MEDICARE, OTHER, SELFPAY | PROVIDERS: PCP Family Medicine; Referring Provider Family Medicine; Visit Provider Student in an Organized Health Care Education/Training Program | DX: M25.562 Pain in left knee (principal); R20.8 Other disturbances of skin sensation; Z98.890 Other specified postprocedural states; Z96.653 Presence of artificial knee joint, bilateral; I12.9 Hypertensive chronic kidney disease with stage 1 through stage 4 chronic kidney disease, or unspecified chronic kidney disease; N18.9 Chronic kidney disease, unspecified | CPT/HCPCS: 99212; 99213 ==

== ENCOUNTER 2020-09-20 04:07 | Outpatient (CLI) | payer MEDICARE, OTHER, SELFPAY ==
[2020-09-20 13:21] LABS: HCT 31.6 % (36.0-46.0); MCH 30.5 pg (27.0-33.0); MCHC 31.6 % (32.0-36.0); MCV 96.3 fL (80-95); MPV 9.7 fL (8.0-11.0); Platelet Count 289 10^3/uL (130-400); RBC 3.28 10^6/uL (3.93-5.22); RDW-SD 46.5 fL
[2020-09-20 13:48] LABS: Hemoglobin A1C 5.6 % (<5.7)
[2020-09-20 14:10] LABS: ESR 86 mm/hr (0-30)
[2020-09-20 14:14] LABS: Anion Gap 7.3 mmol/L (3-11); BUN 33 mg/dL (7-18); CO2 31.7 mmol/L (21.0-32.0); CREATININE 1.86 mg/dL (0.55-1.02); Calcium 8.7 mg/dL (8.5-10.1); Chloride 104 mmol/L (98-107); Estimated GFR 26.13 (mL/min/1.73m2); Glucose 95 mg/dL (74-106); Potassium 3.4 mmol/L (3.5-5.1); Sodium 143 mmol/L (136-145); TSH 1.11 uIU/mL (0.36-3.74); Vitamin B12 653 pg/mL (193-986)
[2020-09-20 15:55] LABS: FREE T4 1.43 ng/dL (0.76-1.46)
== END 2020-09-20 04:27 ==
PROVIDERS: PCP Family Medicine; Visit Provider Family Medicine
DX: D64.9 Anemia, unspecified (principal); I12.9 Hypertensive chronic kidney disease with stage 1 through stage 4 chronic kidney disease, or unspecified chronic kidney disease; M25.562 Pain in left knee; Z79.899 Other long term (current) drug therapy
CPT/HCPCS: 36415; 80048; 85027; 85652; 82607; 83036; 84439; 84443

== ENCOUNTER 2021-01-02 17:01 | Emergency (ER) | payer MEDICARE, OTHER, SELFPAY ==
[2021-01-02 17:10] VITALS: BP 213/72; PULSE 86; RESP 22; TEMP 36.5; O2SAT 99
--- NOTE | 2021-01-02 17:15 | RT.EKG_ITS ---
APPROVED REPORT Exam: Resting ECG Patient Location: E HR:74 bpm ECG Measurements Heart Rate 74 AXIS MS 238 P 10 QRSd 127 QRS -26 QT 451 T 69 QTc 502 Conclusion Sinus rhythm...normal P axis, V-rate 60- 99 Prolonged MS interval...MS >220, V-rate 50- 90 Left bundle branch block...QRSd>120, broad/notched R Physician: No STEMI, negative SCARBOSSA
[2021-01-02 17:31] LABS: Abs Immature Grans 0.02 10^3/uL (0.0-0.06); Absolute Basophil Count 0.03 10^3/uL (0.0-0.2); Absolute Eosinophil Count 0.18 10^3/uL (0.0-0.7); Absolute Lymphocyte Count 1.74 10^3/uL (1.2-3.4); Absolute Monocyte Count 0.83 10^3/uL (0.1-0.8); Absolute Neutrophil Count 4.67 10^3/uL (1.2-6.7); Basophils % 0.4; Eosinophils % 2.4; HCT 39.3 % (36.0-46.0); HGB 12.9 g/dL (11.2-15.7); Immature Grans % 0.3; Lymphocytes % 23.3; MCHC 32.8 % (32.0-36.0); MCV 94.5 fL (80-95); Monocytes % 11.1; Neutrophils % 62.5; Nucleated RBC 0 %; Platelet Count 300 10^3/uL (130-400); RBC 4.16 10^6/uL (3.93-5.22); RDW 12.8 % (11.7-14.6); RDW-SD 44.5 fL; WBC 7.47 10^3/uL (4.4-10.8)
[2021-01-02] MEDS: Normal Saline 1,000 ML 150 ML IV (17:32)
[2021-01-02 17:46] LABS: INR 1.8 (0.9-1.1); PTT Activated 29.6 sec (21.0-27.5); Prothrombin Time 17.8 sec (9.3-11.0)
[2021-01-02 17:49] LABS: ALT 29 U/L (14-59); AST 33 U/L (15-37); Alkaline Phosphatase 104 U/L (46-116); Anion Gap 9.8 mmol/L (3-11); BUN 24 mg/dL (7-18); Bilirubin, Total 0.6 mg/dL (0.2-1.0); CO2 30.2 mmol/L (21.0-32.0); CREATININE 2.3 mg/dL (0.55-1.02); Calcium 9.9 mg/dL (8.5-10.1); Chloride 101 mmol/L (98-107); Estimated GFR 20.45 (mL/min/1.73m2); Glucose 145 mg/dL (74-106); Magnesium 2.6 mg/dL (1.8-2.4); Potassium 3.7 mmol/L (3.5-5.1); Sodium 141 mmol/L (136-145); Total Protein 7.8 g/dL (6.4-8.2); Troponin I 0.06 ng/mL (<0.06)
--- NOTE | 2021-01-02 17:57 | W.ED.GENAD ---
Discharge Plan Disposition Patient Disposition: HOME Condition: Stable Discharge Details Clinical Impression: UTI (urinary tract infection), Hernia, Cyst of left kidney Primary Care Provider: Lyubov Tee V ED Provider: Kerline Garcia Home Meds and New Rx's Prescriptions: New cephalexin 250 mg capsule 250 mg PO TID 5 Days Qty: 15 RF: 0 Continued furosemide 40 mg tablet See Rx Instructions PO BID RF: 0 warfarin 5 mg tablet 5 mg PO DAILY Qty: 0 RF: 0 ferrous gluconate 324 mg (37.5 mg iron) tablet 324 mg PO DAILY RF: 0 tramadol [Ultram] 50 MG tablet 50 mg PO BID RF: 0 pantoprazole [Protonix] 40 MG tablet,delayed release (DR/EC) 40 mg PO DAILY RF: 0 hydroxychloroquine 200 MG tablet 200 mg PO DAILY RF: 0 Savella 50 MG tablet 50 mg PO BID RF: 0 atorvastatin [Lipitor] 20 mg Tablet 20 mg DAILY RF: 0 nitroglycerin 0.4 mg tablet, sublingual 0.4 mg SL Q5-15M PRN (Reason: chest pain) Qty: 20 RF: 0 hydralazine 10 mg Tablet 10 mg PO TID Qty: 0 RF: 0 amiodarone [Pacerone] 200 mg Tablet 200 mg PO DAILY Qty: 0 RF: 0 metoprolol tartrate 50 mg Tablet 50 mg PO DAILY Qty: 0 RF: 0 polyethylene glycol 3350 [Miralax] 17 gram Powder In Packet 17 g PO DAILY RF: 0 albuterol sulfate 2.5 mg /3 mL (0.083 %) Solution For Nebulization 2.5 mg continuous nebulization RF: 0 meclizine 12.5 mg Tablet 12.5 mg PO BID PRNRF: 0 albuterol sulfate [ProAir HFA] 90 mcg/actuation Hfa Aerosol Inhaler 90 mcg INHALATION RF: 0 amitriptyline 50 mg tablet 50 mg PO HS RF: 0 Discharge Instructions Instructions: Cephalexin (By mouth), Urinary Tract Infection in Women (ED) Additional Instructions: Encourage water intake. Please take the antibiotics as prescribed. Even if symptoms improve, please take the entire course. As we discussed, there is a hernia that is noted on your imaging as well as a cyst on your kidney. Please discuss this further with your primary care. Your blood pressure was also noted to be elevated here today and should be reevaluated by primary care. Please try to relax and reduce your stress with this also is likely contributing to some of your symptoms. If you develop fever/chills, inability stay hydrated, abdominal pain or other new/worsening symptom please seek care urgently once again. Referrals: Lyubov Tee MD [Primary Care Provider] - Discharge Data Discharge Date/Time-TO BE ENTERED AT DEPARTURE: 01/02/21 21:00 Medical Decision Making Patient is a pleasant 80-year-old female presented with chief complaint of nausea, dry heaving and 30 pound weight loss. She reports this began approximately 1 month ago. States that she is often having new onset headache and she is been having a frontal headache nearly daily. States this began with this point time she began having the nausea. Reports the weight loss was unintentional. Denies any visual changes. No neck pain. No recent travel. No cough. No fever/chills. She denies any chest pain or shortness of breath. Past medical history is pertinent for normocytic anemia, ambulatory dysfunction, hypertension, CHF, hyperlipidemia, paroxysmal atrial fibrillation. Patient is anticoagulated on warfarin. On exam, patient appears nontoxic. She does appear anxious. Lungs are clear. Normal cardiac exam. Abdomen is benign. She does have a palpable hernia that is nontender for the patient. She reports that she has known hernia this is unchanged. No CVA tenderness. No abnormality in the lower extremities. 2+ distal pulses. Patient's initial blood pressure was 213/72. However, after talking to patient her systolic and in the 160s which appears more consistent with her baseline. With the patient significant weight loss she reports is unintentional, and primarily concern for neoplastic source. She does report that she is been having new onset headaches, I did consider intracranial abnormality. She also reports that she has been having nausea and dry heaves and can occasionally get some midline discomfort with this. Patient does have known history of kidney dysfunction. Plan to obtain CT head and abdomen noncontrast. Her history and exam is not consistent with ACS, PE, acute surgical abdomen, ICH. Labs reviewed. No leukocytosis. Stable H&H. Creatinine is elevated 2.48, this is baseline for patient. Urine is concerning for a full infection. Elevated specific gravity, trace blood, small leukocyte esterase, over 50 WBCs and many bacteria. I discussed the findings with the patient, she is now reporting that she has been experiencing some dysuria. FINDINGS: Brain: There is mild age related parenchymal atrophy with prominence of the cortical sulci similar to prior. Periventricular and deep white matter hypodensities are consistent with sequela of chronic microvascular ischemic disease. No midline shift or herniation. No acute intracranial hemorrhage. Cerebral ventricles: Mild ex vacuo dilation of the ventricles similar to prior, likely secondary to age related volume loss. Bones/joints: Unremarkable. No acute osseous finding. Paranasal sinuses: Visualized sinuses are unremarkable. No fluid levels. Mastoid air cells: No mastoid effusion. Orbital cavity: Status post bilateral lens replacement. Soft tissues: No focal soft tissue abnormality. IMPRESSION: No acute intracranial finding. FINDINGS: Heart: There is diminished attenuation of the cardiac chambers in comparison to the myocardium which can be seen with anemia. Correlate clinically. Mediastinal space: Hiatal hernia. Liver: Normal. No mass. Gallbladder and bile ducts: Normal. No calcified stones. No ductal dilation. Pancreas: Normal. No ductal dilation. Spleen: Normal. No splenomegaly. Adrenal glands: Normal. No mass. Kidneys and ureters: 1.2 cm hyperattenuating lesion extends exophytically from upper pole of left kidney. No hydronephrosis. Stomach and bowel: No dilated loops of small bowel or colonic dilatation. Administered oral contrast is seen to have passed to transverse colon at the time of scan. Prior distal colonic surgery. Appendix: Normal appendix. Intraperitoneal space: Unremarkable. No free air. No significant fluid collection. Vasculature: Infrarenal aorta top normal in caliber. Atherosclerotic calcifications. Lymph nodes: Unremarkable. No enlarged lymph nodes. Urinary bladder: Unremarkable as visualized. Reproductive: Prior hysterectomy. Bones/joints: The spine demonstrates moderate degenerative changes at multiple levels. Soft tissues: Right lower quadrant ventral hernia containing fat and nondilated contrast-enhanced segment of small bowel. Bowel appears compressed passing through the hernia defect. There is an uncomplicated fat-containing umbilical hernia. IMPRESSION: 1. Incarcerated small bowel in right lower quadrant ventral hernia 2. Hiatal hernia. 3. Anemia suspected. 4. Complex cyst suspected left kidney. Correlate with renal ultrasound. I discussed the findings with the patient. She was aware of the hernia as well as renal cyst. She reports that she is followed by nephrology for her chronic kidney dysfunction. She will discuss the cyst and recommendation of ultrasound further with him. We will begin treating the patient for UTI with Keflex. Encourage hydration. Strict return precautions were discussed. Advise follow-up with primary care to discuss her elevated blood pressure and persistent symptoms. Patient also tells me having a lot of stress and anxiety. She and I discussed this at length and she will try including anxiety lytic techniques and stress reduction. All of her questions and concerns were addressed and she is agreement this plan. HPI General Mode of arrival: ambulatory. Date/Time Provider Initiated Documentation: 01/02/21 17:20. Limitations to Documentation: no limitations. Information obtained by: patient and RN notes reviewed. History of Present Illness 80 year old F presents to the emergency department with the chief complaint of nausea and 30lb weight loss, described as moderate, Quality is described as other (denies any pain), and is localized to the abdomen. Patient reports no radiation. Patient started experiencing this month(s) (1+) and it has been intermittent. No relieving factors improve symptom(s), No exacerbating factors reported . Patient notes no other symptoms., loss of appetite and nausea/vomiting (nausea and dry heaves); denies chest pain, cough, diaphoresis, fever/chills and shortness of breath. Patient did receive the following treatments prior to arrival, none Related Data Home Medications Medication Instructions Recorded Confirmed Savella 50 mg PO BID 11/24/17 01/02/21 hydroxychloroquine 200 mg PO DAILY 11/24/17 01/02/21 pantoprazole [Protonix] 40 mg PO DAILY 11/24/17 01/02/21 tramadol [Ultram] 50 mg PO BID 11/24/17 01/02/21 atorvastatin [Lipitor] 20 mg DAILY 05/17/19 01/02/21 polyethylene glycol 3350 [Miralax] 17 g PO DAILY 08/26/19 01/02/21 amiodarone [Pacerone] 200 mg PO DAILY #0 tab 11/14/19 01/02/21 hydralazine 10 mg PO TID #0 tab 11/14/19 01/02/21 metoprolol tartrate 50 mg PO DAILY #0 tab 11/14/19 01/02/21 nitroglycerin 0.4 mg SL Q5-15M PRN #20 tab 11/14/19 01/02/21 albuterol sulfate 2.5 mg CONTINUOUS NEBULIZATION 02/13/20 08/31/20 albuterol sulfate [ProAir HFA] 90 mcg INHALATION 02/13/20 08/31/20 amitriptyline 50 mg PO HS 02/13/20 01/02/21 meclizine 12.5 mg PO BID PRN 02/13/20 01/02/21 ferrous gluconate 324 mg (37.5 mg 324 mg PO DAILY 07/20/20 01/02/21 iron) tablet warfarin 5 mg tablet 5 mg PO DAILY #0 tab 07/20/20 01/02/21 furosemide 40 mg tablet See Rx Instructions PO BID tab 08/31/20 01/02/21 cephalexin 250 mg PO TID 5 Days #15 cap 01/02/21 Previous Rx's Medication Instructions Recorded amiodarone [Pacerone] 200 mg PO DAILY #0 tab 11/14/19 hydralazine 10 mg PO TID #0 tab 11/14/19 metoprolol tartrate 50 mg PO DAILY #0 tab 11/14/19 nitroglycerin 0.4 mg SL Q5-15M PRN #20 tab 11/14/19 warfarin 5 mg tablet 5 mg PO DAILY #0 tab 07/20/20 cephalexin 250 mg PO TID 5 Days #15 cap 01/02/21 Allergies Allergy/AdvReac Type Severity Reaction Status Date / Time Sulfa (Sulfonamide Allergy Unverified 01/02/21 17:15 Antibiotics) cat scan dye AdvReac Uncoded 01/02/21 17:15 General Stated Complaint: GenMedical COURT: 3 Review of Systems Constitutional Constitutional: Reports as per HPI, Denies chills, Denies fatigue, Denies fever(s), Reports headache(s) and Reports weight loss ENT Ears, Nose, Mouth, and Throat: Reports headache(s) Cardiovascular Cardiovascular: Reports as per HPI, Denies chest pain and Denies dyspnea Respiratory Respiratory: Reports as per HPI, Denies cough and Denies dyspnea Gastrointestinal Gastrointestinal: Reports as per HPI Musculoskeletal Musculoskeletal: Reports as per HPI and Denies back pain Integumentary/Breasts Skin/Breast: Reports as per HPI and Denies rash Neurologic Neurologic: Reports as per HPI and Reports headache(s) Endocrine Endocrine: Denies fatigue [facility] Medical History (Updated 01/02/21 @ 20:59 by KANCHAN Xiao) Atrial fibrillation Chronic diastolic CHF (congestive heart failure) CKD (chronic kidney disease), stage III Depression Diverticulosis of colon DNI (do not intubate) DNR (do not resuscitate) Fibromyalgia Gastroesophageal reflux Goals of care, counseling/discussion History of tobacco use Hydronephrosis Hyperlipidemia Hypertension Intestinal adhesions Normocytic anemia NSTEMI (non-ST elevated myocardial infarction) Palliative care patient POLST (Physician Orders for Life-Sustaining Treatment) done 02/16/20 Pulmonary hypertension Respiratory infection Systemic lupus erythematosus Surgical History History of hysterectomy History of partial colectomy partial bowel resection-colectomy with colosotmy ad reversal, abdominal adhesions History of surgical removal of ganglion cyst both wrists History of tonsillectomy and adenoidectomy Hx of bilateral cataract extraction Hx of section Hx of knee surgery S/p bilateral carpal tunnel release Status post total left knee replacement (~1999) Family History (Updated 02/15/20 @ 21:01 by Keshia Calderon MD) Father Heart disease Diabetes Mother Heart disease Hypertension Son Diabetes Granddaughter No problems noted. Granddaughter No problems noted. Social History Smoking/Tobacco Use Status: Former Tobacco Use Smoking risk assessment performed?: Yes Alcohol Intake: current Alcohol Intake frequency: holidays/special occasions only Drug use: Never Substance use type: does not use Details: quit smoking in 2006 for second time Caregiver/Support person: No Household members: none Housing: house Communication Needs: Hard of Hearing and Corrective Lenses Education Level: high school Do you need help understanding health information?: Always How often do you talk on the phone with friends or family?: three or more times per week How often do you get together with friends or relatives?: three or more times per week Panel score (0-1 are the most socially isolated patients): 1 What type of physical activity do you participate in: walking and sedentary lifestyle Duration: < 15 minutes/day Special marci needs: No Seatbelt use: always Do you feel safe at home: Yes Do you feel safe in your relationship?: Yes Additional Social history: Planning on moving into attached apartment to her son's home. He lives there with his second and their 8 yo daughter. She also has grandchild from his first marriage; that granddaughter has children of her own. Family very important to her. Realizing she is needing more help. Feels fortunate to have it available to her. Exam Const General: cooperative, healthy appearing, comfortable, no acute distress, well developed and anxious Nutritional Appearance: well nourished and overweight Orientation: alert and awake [facility] Head: normal to inspection Mouth: moist mucous membranes Resp Effort & Inspection: normal respiratory effort, able to speak in complete sentences and no respiratory distress Auscultation: clear to auscultation bilaterally, no rales, no rhonchi and no wheezes Cardio Rate: regular rate Rhythm: regular rhythm Heart Sounds: S1 normal and S2 normal GI Inspection: normal to inspection, no edema, non-distended, no visible herniation and no visible pulsation Palpation: soft, no hepatosplenomegaly, no guarding, hernia, no pulsatile masses, not rigid and nontender Percussion: normal to percussion Auscultation: normal bowel sounds Back/Spine/Pelvis Back: no CVA tenderness Skin General skin exam: no rashes or lesions noted Trauma: no lacerations or abrasions Neuro General: patient alert and patient awake Cognition: normal cognition Speech: speech normal Gait: normal gait Extrem General: normal to inspection, no pedal edema, no calf tenderness and normal gait Psych Appearance: grossly normal and well kempt Mental Status: mental status grossly normal Speech and Movement: speech and movement normal Course Vital Signs Vital signs: Vital Signs Temperature 36.5 C 01/02/21 17:10 Pulse 86 01/02/21 17:10 Respiratory Rate 22 01/02/21 17:10 Blood Pressure 213/72 H 01/02/21 17:10 Pulse Oximetry 99 01/02/21 17:10 Temperature 36.5 C 01/02/21 17:10 Temperature Source Temporal Artery Scan 01/02/21 17:10 Pulse 86 01/02/21 17:10 Respiratory Rate 22 01/02/21 17:10 Respiratory Effort Non-Labored 01/02/21 17:14 Blood Pressure 213/72 H 01/02/21 17:10 Blood Pressure Position Supine 01/02/21 17:10 Pulse Oximetry 99 01/02/21 17:10 Oxygen Delivery Method Room Air 01/02/21 17:10 Oxygen Flow Rate 0 01/02/21 17:10 Pain Level 0 01/02/21 17:10 Lab/Test Results Lab/Test Results: Laboratory Tests Range/Units 01/02/21 01/02/21 01/02/21 17:20 17:20 17:20 WBC (4.4-10.8) 10^3/uL 7.47 RBC (3.93-5.22) 10^6/uL 4.16 Hgb (11.2-15.7) g/dL 12.9 Hct (36.0-46.0) % 39.3 MCV (80-95) fL 94.5 MCH (27.0-33.0) pg 31.0 MCHC (32.0-36.0) % 32.8 RDW (11.7-14.6) % 12.8 Plt Count (130-400) 10^3/uL 300 MPV (8.0-11.0) fL 10.0 Immature Gran % 0.3 Neutrophils % 62.5 Lymphocytes % 23.3 Monocytes % 11.1 Eosinophils % 2.4 Basophils % 0.4 Nucleated RBC % % 0 Absolute Neutrophils (1.2-6.7) 10^3/uL 4.67 Absolute Lymphocytes (1.2-3.4) 10^3/uL 1.74 Absolute Monocytes (0.1-0.8) 10^3/uL 0.83 H Absolute Eosinophils (0.0-0.7) 10^3/uL 0.18 Absolute Basophils (0.0-0.2) 10^3/uL 0.03 PT (9.3-11.0) sec 17.8 H INR (0.9-1.1) 1.8 H APTT (21.0-27.5) sec 29.6 H Sodium (136-145) mmol/L 141 Potassium (3.5-5.1) mmol/L 3.7 Chloride (98-107) mmol/L 101 Carbon Dioxide (21.0-32.0) mmol/L 30.2 Anion Gap (3-11) mmol/L 9.8 BUN (7-18) mg/dL 24 H Creatinine (0.55-1.02) mg/dL 2.3 H Estimated GFR/1.73 m2 (mL/min/1.73m2) 20.45 Glucose (74-106) mg/dL 145 H Calcium (8.5-10.1) mg/dL 9.9 Magnesium (1.8-2.4) mg/dL 2.6 H Total Bilirubin (0.2-1.0) mg/dL 0.6 AST (15-37) U/L 33 ALT (14-59) U/L 29 Alkaline Phosphatase (46-116) U/L 104 Troponin I (<0.06) ng/mL 0.06 Total Protein (6.4-8.2) g/dL 7.8 Albumin (3.4-5.0) g/dL 4.0
--- NOTE | 2021-01-02 18:00 | DI.CT_ITS ---
EXAM: CT ABDOMEN PELVIS WO CLINICAL HISTORY: new onset nausea, midline abd pain, 30lb wt loss. TECHNIQUE: Imaging Protocol: Axial computed tomography images with coronal and sagittal reformatted images were created and reviewed CONTRAST MATERIAL: Intravenous: none Oral: Yes COMPARISON: No exams were available for comparison FINDINGS: VISUALIZED LUNG BASES: No nodules nor pleural effusions evident. ABDOMEN: There is no ascites. There is a right anterior abdominal wall hernia located approximately 6 centime katherin lateral to the umbilicus. This contains a loop of small bowel which does not appear obviously o bstructed given that bowel loops proximal to this level are not diet related and there is oral contra st distal to this level within the colon. LIVER: There are no obvious focal hepatic lesions evident of this noninfused study. GALLBLADDER/BILIARY: No obvious gallbladder pathology. CBD is not dilated. PANCREAS: No evidence of pancreatic mass nor dilatation of the pancreatic duct. SPLEEN: Spleen is not enlarged. No obvious intrasplenic lesions. ADRENALS: There are no significant adrenal masses. KIDNEYS:There is a 1.3 by 1.0 centimeter exophytic nodule off the superior pole of the left kidney wh ich is too dense to be a simple cyst. Requires ultrasound to determine hemorrhagic cyst versus solid nodule. No other focal findings in the left kidney. There is a subtle hypodense area in the medial aspect the opposite-right kidney measuring 12 x 10 millimeters which is also difficult to qualify wi thout IV contrast may be a cyst. Ultrasound recommended. There are no calculi in the kidneys. No h ydronephrosis nor hydroureter nor obvious abnormality in the nondistended urinary bladder.. ABDOMINAL AORTA: Infrarenal abdominal aorta is upper normal diameter for this advanced age group. LYMPH NODES: There is no retroperitoneal nor paraaortic adenopathy. ABDOMINAL WALL/GI: There has been partial sigmoid resection. No abnormality nor obstruction at this level. PELVIS: LYMPH NODES: There is no intrapelvic nor inguinal adenopathy. GI: No evidence of appendicitis.No evidence of sigmoid diverticulitis. URINARY BLADDER: No calculi nor obvious masses evident REPRODUCTIVE: Uterus is surgically absent. No abnormal adnexal masses. OSSEOUS: No significant osseous lesions. IMPRESSION: 1. There is a right anterior abdominal wall hernia which contains a somewhat incarcerated small bowel loop although there does not appear to be an obvious bowel obstruction. Surgical consultation recom mended. 2. There is a 13 x 10 millimeter exophytic nodule off the superior pole of the left kidney which is t oo dense to be a simple cyst and difficult to assess without IV contrast. Recommend follow-up ultras ound. In addition, there is a probable cyst also evident in the opposite-right kidney measuring 12 x 10 millimeters. Should also be studied with ultrasound. No renal calculi nor hydronephrosis. 3. The uterus is surgically absent. There are no abnormal adnexal masses nor free fluid in the pelvi s. RADIATION DOSE DELIVERED: 934.68mGy.cm Total DLP DATA REPOSITORY: All CT scans at this facility are submitted to the National Radiology Data Registry (NRDR) Dose Index Registry (DIR) with the [employer] (A[employer]). RADIATION OPTIMIZATION: All CT scans at this facility use at least one of these dose optimization te chniques: automated exposure control; mA and/or kV adjustment per patient size (includes targeted exa ms where dose is matched to clinical indication); or iterative reconstruction.
--- NOTE | 2021-01-02 18:00 | DI.CT_ITS ---
EXAM: CT HEAD WO CLINICAL HISTORY: new onset frontal COOK, weight loss. TECHNIQUE: Imaging Protocol: Axial computed tomography images with coronal and sagittal reformatted images were created and reviewed COMPARISON: CT CT HEAD CERVICAL SPINE WO from 05/17/2019 FINDINGS: There are no skull fractures nor fluid in the visualized paranasal sinuses. There is no evidence of intracranial hemorrhage, mass effect, or shift of midline structures. There are no extra-axial fluid collections. The ventricles are not enlarged or shifted and there is no blo od within the ventricular system nor within the basal cisterns. There is periventricular hypodensity consistent with chronic small vessel disease. No obvious acute infarcts. Some calcification is noted in the left vertebral artery at the skull base as well as with in the internal carotid arteries. Amount of involutional changes consistent with this patient's age IMPRESSION: No acute intracranial findings on this noninfused CT scan of the brain. Chronic small vie matter ischemic changes but no obvious acute infarct. If clinically indicated foll ow-up MRI can be performed. RADIATION DOSE DELIVERED: 797.54mGy.cm Total DLP DATA REPOSITORY: All CT scans at this facility are submitted to the National Radiology Data Registry (NRDR) Dose Index Registry (DIR) with the [employer] [place] [employer] ([employer]). RADIATION OPTIMIZATION: All CT scans at this facility use at least one of these dose optimization te chniques: automated exposure control; mA and/or kV adjustment per patient size (includes targeted exa ms where dose is matched to clinical indication); or iterative reconstruction.
[2021-01-02 18:43] LABS: Bilirubin Negative (Negative); Blood Trace-intact (Negative); Clarity Cloudy (Clear); Glucose Negative (Negative); Ketones Negative (Negative); Leukocyte Esterase Small (Negative); Nitrite Negative (Negative); Specific Gravity >= 1.030 (1.005-1.025); Urobilinogen 0.2 EU/dL (Up TO 0.2); pH 5.5 (5-8)
[2021-01-02 18:49] LABS: Bacteria Many HPF (Negative); C & S Indicated? Yes; WBC >50 HPF (0-5)
[2021-01-02] MEDS: Omnipaque 350 MG/ML 50 ML BTL PO (19:19)
--- NOTE | 2021-01-02 20:15 | DI.VRAD_ITS ---
PROCEDURE INFORMATION: Exam: CT Head Without Contrast Exam date and time: 01/02/2021 8:01 PM Age: 80 years old Clinical indication: Pain; Headache not specified; Patient HX: New onset frontal COOK, weight loss TECHNIQUE: Imaging protocol: Computed tomography of the head without contrast. Radiation optimization: All CT scans at this facility use at least one of these dose optimization techniques: automated exposure control; mA and/or kV adjustment per patient size (includes targeted exams where dose is matched to clinical indication); or iterative reconstruction. COMPARISON: CT HEAD CERVICAL SPINE WO 05/17/2019 1:00 PM FINDINGS: Brain: There is mild age related parenchymal atrophy with prominence of the cortical sulci similar to prior. Periventricular and deep white matter hypodensities are consistent with sequela of chronic microvascular ischemic disease. No midline shift or herniation. No acute intracranial hemorrhage. Cerebral ventricles: Mild ex vacuo dilation of the ventricles similar to prior, likely secondary to age related volume loss. Bones/joints: Unremarkable. No acute osseous finding. Paranasal sinuses: Visualized sinuses are unremarkable. No fluid levels. Mastoid air cells: No mastoid effusion. Orbital cavity: Status post bilateral lens replacement. Soft tissues: No focal soft tissue abnormality. IMPRESSION: No acute intracranial finding. Dictated and Authenticated by: Candido Salmeron MD. Ordering:YISSEL Churchill MD
--- NOTE | 2021-01-02 20:33 | DI.VRAD_ITS ---
PROCEDURE INFORMATION: Exam: CT Abdomen And Pelvis Without Contrast Exam date and time: 01/02/2021 8:06 PM Age: 80 years old Clinical indication: Abdominal pain; Localized; Prior surgery; Surgery date: 6+ months; Surgery type: Hysterectomy, partial colectomy, ; Patient HX: New onset nausea, midline abd pain, 30lb wt loss TECHNIQUE: Imaging protocol: Computed tomography of the abdomen and pelvis without contrast. Radiation optimization: All CT scans at this facility use at least one of these dose optimization techniques: automated exposure control; mA and/or kV adjustment per patient size (includes targeted exams where dose is matched to clinical indication); or iterative reconstruction. Other contrast: Oral, omnipaque 350, 50; COMPARISON: No relevant prior studies available. FINDINGS: Heart: There is diminished attenuation of the cardiac chambers in comparison to the myocardium which can be seen with anemia. Correlate clinically. Mediastinal space: Hiatal hernia. Liver: Normal. No mass. Gallbladder and bile ducts: Normal. No calcified stones. No ductal dilation. Pancreas: Normal. No ductal dilation. Spleen: Normal. No splenomegaly. Adrenal glands: Normal. No mass. Kidneys and ureters: 1.2 cm hyperattenuating lesion extends exophytically from upper pole of left kidney. No hydronephrosis. Stomach and bowel: No dilated loops of small bowel or colonic dilatation. Administered oral contrast is seen to have passed to transverse colon at the time of scan. Prior distal colonic surgery. Appendix: Normal appendix. Intraperitoneal space: Unremarkable. No free air. No significant fluid collection. Vasculature: Infrarenal aorta top normal in caliber. Atherosclerotic calcifications. Lymph nodes: Unremarkable. No enlarged lymph nodes. Urinary bladder: Unremarkable as visualized. Reproductive: Prior hysterectomy. Bones/joints: The spine demonstrates moderate degenerative changes at multiple levels. Soft tissues: Right lower quadrant ventral hernia containing fat and nondilated contrast-enhanced segment of small bowel. Bowel appears compressed passing through the hernia defect. There is an uncomplicated fat-containing umbilical hernia. IMPRESSION: 1. Incarcerated small bowel in right lower quadrant ventral hernia 2. Hiatal hernia. 3. Anemia suspected. 4. Complex cyst suspected left kidney. Correlate with renal ultrasound. Dictated and Authenticated by: Jesus Barker MD. Ordering:YISSEL Churchill MD
[2021-01-02] MEDS: Cephalexin 250 MG CAP 500 MG PO (21:04)
== END 2021-01-02 21:00 | disposition home or self-care (01) ==
PROVIDERS: Emergency Provider Physician Assistant; PCP Family Medicine
DX: N39.0 Urinary tract infection, site not specified (principal); B96.20 Unspecified Escherichia coli [E. coli] as the cause of diseases classified elsewhere; R63.4 Abnormal weight loss; K43.6 Other and unspecified ventral hernia with obstruction, without gangrene; N28.1 Cyst of kidney, acquired; F43.0 Acute stress reaction
CPT/HCPCS: 36415; 80053; 87077; 93005; 96360; 96361; 99285; 70450; 74176; 81003; 81015; 83735; 84484; 85025; 85610; 85730; 87086; 87186; 93010; Q9967

== ENCOUNTER 2021-01-03 02:29 | Outpatient (CLI) | payer MEDICARE, OTHER, SELFPAY ==
[2021-01-03 13:48] LABS: Ferritin 132 ng/mL (8-252)
== END 2021-01-03 02:30 | disposition home or self-care (01) ==
LOC: LBO 02:29
PROVIDERS: PCP Family Medicine; Visit Provider Nurse Practitioner
DX: M25.561 Pain in right knee (principal)
CPT/HCPCS: 36415; 82728

== ENCOUNTER 2021-01-11 22:37 | Outpatient (REF) | payer MEDICARE, OTHER, SELFPAY ==
[2021-01-11 16:10] LABS: ALT 27 U/L (14-59); AST 29 U/L (15-37); Albumin 3.8 g/dL (3.4-5.0); Alkaline Phosphatase 83 U/L (46-116); Anion Gap 9.4 mmol/L (3-11); BUN 26 mg/dL (7-18); Bilirubin, Total 0.5 mg/dL (0.2-1.0); CO2 29.6 mmol/L (21.0-32.0); CREATININE 1.8 mg/dL (0.55-1.02); Calcium 9.4 mg/dL (8.5-10.1); Chloride 103 mmol/L (98-107); Estimated GFR 27.14 (mL/min/1.73m2); Glucose 100 mg/dL (74-106); Potassium 4.8 mmol/L (3.5-5.1); Sodium 142 mmol/L (136-145); Total Protein 6.8 g/dL (6.4-8.2)
== END 2021-01-11 22:38 | disposition home or self-care (01) ==
LOC: NCHCN 22:37
PROVIDERS: PCP Family Medicine; Visit Provider Nurse Practitioner Family
DX: R10.9 Unspecified abdominal pain (principal); R11.2 Nausea with vomiting, unspecified
CPT/HCPCS: 80053; 87086

== ENCOUNTER 2021-01-26 17:11 | Outpatient (REF) | payer MEDICARE, OTHER, SELFPAY ==
[2021-01-26 15:06] LABS: Bilirubin Negative (Negative); Blood Negative (Negative); Clarity Clear (Clear); Glucose Negative (Negative); Ketones Negative (Negative); Leukocyte Esterase Negative (Negative); Nitrite Negative (Negative); Specific Gravity 1.025 (1.005-1.025); Urobilinogen 0.2 EU/dL (Up TO 0.2); pH 5.5 (5-8)
== END 2021-01-26 17:12 | disposition home or self-care (01) ==
LOC: NCHCN 17:11
PROVIDERS: PCP Family Medicine; Visit Provider Family Medicine
DX: R39.15 Urgency of urination (principal)
CPT/HCPCS: 81003

== ENCOUNTER 2021-04-10 14:14 | Outpatient (REF) | payer MEDICARE, OTHER, SELFPAY ==
[2021-04-18 09:24] LABS: O-desmethyltramadol 22902 ng/mL (Cutoff:25); Tramadol 20436 ng/mL (Cutoff:25)
== END 2021-04-10 14:15 | disposition home or self-care (01) ==
LOC: NCHCN 14:14
PROVIDERS: PCP Family Medicine; Visit Provider Family Medicine
DX: Z51.81 Encounter for therapeutic drug level monitoring (principal)
CPT/HCPCS: 80373

== ENCOUNTER 2021-05-18 11:14 | Outpatient (CLI) | payer MEDICARE, OTHER, SELFPAY ==
--- NOTE | 2021-05-18 10:45 | DI.RAD_ITS ---
Exam(s) XR KNEE RT 3V AP,LAT,ROBERTH EXAM: XR KNEE RT 3V AP,LAT,ROBERTH CLINICAL HISTORY: eval R TKA pain. TECHNIQUE: 2D digital imaging was performed. COMPARISON: CR XR KNEE LT 3V AP,LAT,ROBERTH from 07/18/2020 FINDINGS: BONES: There are stable post operative changes present. No fracture or dislocation. JOINTS: The joint spaces are well maintained. Small joint effusion. SOFT TISSUE: Atherosclerosis. IMPRESSION: Stable postoperative changes. DATA REPOSITORY: RADIATION DOSE DELIVERED:
== END 2021-05-18 11:15 | disposition home or self-care (01) ==
LOC: DIORS 11:14
PROVIDERS: PCP Family Medicine; Referring Provider Family Medicine; Visit Provider Student in an Organized Health Care Education/Training Program
DX: Z96.651 Presence of right artificial knee joint (principal); M25.561 Pain in right knee; M25.562 Pain in left knee; Z96.652 Presence of left artificial knee joint; I50.30 Unspecified diastolic (congestive) heart failure; T84.84XA Pain due to internal orthopedic prosthetic devices, implants and grafts, initial encounter
CPT/HCPCS: 73562; 99214

== ENCOUNTER 2021-05-25 04:07 | Outpatient (CLI) | payer MEDICARE, OTHER, SELFPAY ==
--- NOTE | 2021-05-25 07:43 | DI.NM_ITS ---
Exam(s) NM BONE SCAN 3 PHASE EXAM: NM BONE SCAN 3 PHASE CLINICAL HISTORY: ?LOOSENING OF KNEE REPLACEMENT, LT KNEE PAIN, T84.84XA,Z96.652. TECHNIQUE: Injected Dose: 24.5 mCi Tc-99m MDP COMPARISON: CT CT ABDOMEN PELVIS WO from 01/02/[address] ABDOMEN PELVIS WO from 01/02/2021 CR XR KNEE RT 3V AP,LAT,ROBERTH from 05/18/2021 CR XR KNEE RT 3V AP,LAT,ROBERTH from 05/18/2021 FINDINGS: Perfusion and blood pool images as well as delayed images were performed of the knees. Whole body de layed images were also performed. Perfusion: Symmetric. Blood Pool: Slightly increased activity in the soft tissues around the left knee. Delayed: Bilateral photopenic areas in the knees related to bilateral total knee prostheses. Minimal ly increased activity beneath the area of the left tibial tray, compared to the right. Increased act ivity in in the left heel. Increased activity in both wrists and feet, likely indicating degenerativ e changes.. No focal area of intense suspicious uptake is seen. IMPRESSION: 1. Minimally increased activity in the proximal left tibia beneath the tibial tray. DATA REPOSITORY:
== END 2021-05-25 04:27 ==
PROVIDERS: PCP Family Medicine; Visit Provider Student in an Organized Health Care Education/Training Program
DX: M25.562 Pain in left knee (principal); T84.84XA Pain due to internal orthopedic prosthetic devices, implants and grafts, initial encounter; Z96.653 Presence of artificial knee joint, bilateral
CPT/HCPCS: 78315

== ENCOUNTER 2021-06-28 18:25 | Outpatient (REF) | payer MEDICARE, OTHER, SELFPAY ==
[2021-06-28 19:46] LABS: HGB 11.6 g/dL (11.2-15.7); MCH 30.6 pg (27.0-33.0); MCHC 32.2 % (32.0-36.0); MPV 10.6 fL (8.0-11.0); Platelet Count 283 10^3/uL (130-400); RBC 3.79 10^6/uL (3.93-5.22); RDW 12.6 % (11.7-14.6); RDW-SD 43.5 fL; WBC 6.81 10^3/uL (4.4-10.8)
[2021-06-28 20:49] LABS: Anion Gap 8.1 mmol/L (3-11); BUN 26 mg/dL (7-18); CO2 30.9 mmol/L (21.0-32.0); Calculated LDL 90 mg/dL (<100); Chloride 103 mmol/L (98-107); Cholesterol 197 mg/dL (<200); Estimated GFR 24.03 (mL/min/1.73m2); Glucose 89 mg/dL (74-106); HDL Cholesterol 80 mg/dL (40-60); Potassium 4.2 mmol/L (3.5-5.1); Sodium 142 mmol/L (136-145); Triglyceride 138 mg/dL (<150)
== END 2021-06-28 18:26 | disposition home or self-care (01) ==
LOC: NCHCN 18:25
PROVIDERS: PCP Family Medicine; Visit Provider Nurse Practitioner Family
DX: E78.5 Hyperlipidemia, unspecified (principal); Z00.00 Encounter for general adult medical examination without abnormal findings
CPT/HCPCS: 80048; 80061; 85027

== ENCOUNTER → 2021-06-29 09:22 | Outpatient (BNVA) | payer MEDICARE, OTHER, SELFPAY | PROVIDERS: PCP Family Medicine; Referring Provider Family Medicine | DX: Z01.818 Encounter for other preprocedural examination (principal); T84.84XA Pain due to internal orthopedic prosthetic devices, implants and grafts, initial encounter; Z96.652 Presence of left artificial knee joint; J44.9 Chronic obstructive pulmonary disease, unspecified ==

== ENCOUNTER 2021-07-02 03:41 | Outpatient (CLI) | payer MEDICARE, OTHER, SELFPAY ==
[2021-07-02 12:26] LABS: Source Nasal/Nares
[2021-07-02 15:51] LABS: COVID-19 PCR Negative (Negative)
== END 2021-07-02 03:42 | disposition home or self-care (01) ==
LOC: LBO 03:42
PROVIDERS: PCP Family Medicine; Visit Provider Student in an Organized Health Care Education/Training Program
DX: Z20.822 Contact with and (suspected) exposure to COVID-19 (principal); Z01.818 Encounter for other preprocedural examination
CPT/HCPCS: 87635

== ENCOUNTER 2021-07-04 08:23 | Inpatient (IN) | payer MEDICARE, OTHER, SELFPAY ==
[2021-07-04] VITALS (11 sets, daily range): BP systolic 90–155; BP diastolic 41–68; PULSE 53–65; RESP 12–25; TEMP 35.8–37.2; O2SAT 93–97; BMI 34.3
[2021-07-04 08:58] LABS: INR 1.1 (0.9-1.1); Prothrombin Time 10.7 sec (9.3-11.0)
--- NOTE | 2021-07-04 09:20 | W.ANESPRE ---
General Info Date of Service Date Performed: 07/04/21 Height: 5 ft 6 in Weight: 96.5 kg Body Mass Index (BMI): 34.3 Surgical Procedure: Operation Date: 07/04/21 11:25 Proposed Procedures Side Surgeon p Knee Total Revision Attune Left Cordell Gipson MD Meds Allergies and Home Medications Allergies Allergy/AdvReac Type Severity Reaction Status Date / Time Sulfa (Sulfonamide Allergy Verified 07/04/21 08:58 Antibiotics) cat scan dye AdvReac Uncoded 07/04/21 08:58 Home Medication Medication Instructions Recorded Savella 50 mg PO BID 11/24/17 atorvastatin [Lipitor] 20 mg PO DAILY 05/17/19 polyethylene glycol 3350 [Miralax] 17 g PO DAILY 08/26/19 amiodarone [Pacerone] 200 mg PO DAILY #0 tab 11/14/19 hydralazine 10 mg PO TID #0 tab 11/14/19 nitroglycerin 0.4 mg SL Q5-15M PRN #20 tab 11/14/19 albuterol sulfate [ProAir HFA] 90 mcg INHALATION DAILY 02/13/20 warfarin 5 mg tablet 5 mg PO DAILY #0 tab 07/20/20 hydroxychloroquine 200 mg tablet 400 mg PO DAILY tab 05/31/21 metoprolol succinate 50 mg 50 mg PO DAILY 05/31/21 tablet,extended release 24 hr famotidine 20 mg tablet 20 mg PO .COMPLEX 06/29/21 furosemide 20 mg tablet 80 mg PO DAILY AM 06/29/21 pramipexole 0.25 mg tablet 0.5 mg PO QHS tab 06/29/21 tramadol 50 mg tablet 50 mg PO HS tab 06/29/21 acetaminophen [Tylenol Extra 500 mg PO Q6H PRN #90 tab 07/04/21 Strength] celecoxib [Celebrex] 200 mg PO BID #60 cap 07/04/21 enoxaparin 100 SUBCUT 07/04/21 furosemide 40 mg PO HS 07/04/21 gabapentin 300 mg PO QHS #14 cap 07/04/21 oxycodone 5 mg PO Q4H PRN #18 tab 07/04/21 pantoprazole [Protonix] 40 mg PO DAILY #30 tab 07/04/21 Current Visit Medications: Current Medications Generic Name Dose Route Start Last Admin Trade Name Freq PRN Reason Stop Dose Admin Acetaminophen 1,000 mg 07/04/21 06:00 Acetaminophen 500 Mg Tab PO 07/04/21 16:00 PREOP [facility] Celecoxib 400 mg 07/04/21 06:00 Celecoxib 200 Mg Cap PO 07/04/21 16:00 PREOP [facility] Ephedrine Sulfate 0 mg 07/04/21 08:30 Ephedrine 50 Mg/Ml Vial IVP DIRECTED PRN Fentanyl 0 mcg 07/04/21 08:30 Fentanyl 100 Mcg/2 Ml Vial IVP DIRECTED PRN Gabapentin 300 mg 07/04/21 06:00 Gabapentin 300 Mg Cap PO 07/04/21 16:00 PREOP [facility] Hydromorphone HCl 0 mg 07/04/21 08:30 Hydromorphone 2 Mg/Ml Vial IVP DIRECTED PRN Tranexamic Acid 1,000 mg/ 60 mls @ 360 mls/hr 07/04/21 06:00 Sodium Chloride IVPB 07/04/21 16:00 PREOP [facility] Tranexamic Acid 1,000 mg/ 60 mls @ 360 mls/hr 07/04/21 06:00 Sodium Chloride IVPB 07/04/21 16:00 DIRECTED [facility] Ringer's Solution 1,000 mls @ 80 mls/hr 07/04/21 06:00 IV 08/02/21 23:59 INFUSION [facility] IV Miscellaneous Supplies 1 each 07/04/21 06:00 Iv Access IV 08/02/21 23:59 DIRECTED [facility] Naloxone HCl 0 mg 07/04/21 08:30 Naloxone 0.4 Mg/Ml Vial IVP PRN PRN Sodium Chloride 0 ml 07/04/21 06:00 Normal Saline Flush 10 Ml Syr IV 08/02/21 23:59 PRN PRN Sodium Chloride 0 ml 07/04/21 06:00 Normal Saline 10 Ml Vial IJ 08/02/21 23:59 DIRECTED PRN Sterile Water 0 ml 07/04/21 06:00 Water,Injection,Sterile 10 Ml Vial IJ 08/02/21 23:59 DIRECTED PRN PFSH Active Problems Active Problems: Problem Status Onset Code Hammertoe of second toe of left foot M20.42 Shortness of breath R06.02 Paroxysmal atrial fibrillation I48.0 Hyperlipidemia E78.5 DVT prophylaxis Z29.9 Discharge planning issues Z02.9 Acute on chronic diastolic CHF (congestive heart failure), NYHA class 1 I50.33 Elevated troponin R79.89 Chronic respiratory failure with hypoxia J96.11 Supratherapeutic INR R79.1 Fall W19.XXXA Ambulatory dysfunction R26.2 COVID-19 ruled out Z03.818 Acute and chronic respiratory failure with hypoxia J96.21 Status post total right knee replacement ~1997 Z96.651 UTI (urinary tract infection) N39.0 Hernia K46.9 Cyst of left kidney N28.1 Painful total knee replacement, left T84.84XA, Z96.652 Sensorineural hearing loss, bilateral H90.3 Status post total left knee replacement ~1999 Z96.652 Goals of care, counseling/discussion Z71.89 DNI (do not intubate) Z78.9 DNR (do not resuscitate) Z66 POLST (Physician Orders for Life-Sustaining Treatment) Z78.9 Palliative care patient Z51.5 Normocytic anemia D64.9 Pulmonary hypertension I27.20 Medical History Medical History Atrial fibrillation Chronic diastolic CHF (congestive heart failure) CKD (chronic kidney disease), stage III Depression Diverticulosis of colon DNI (do not intubate) DNR (do not resuscitate) Fibromyalgia Gastroesophageal reflux Goals of care, counseling/discussion History of tobacco use Hydronephrosis Hyperlipidemia Hypertension Intestinal adhesions Normocytic anemia NSTEMI (non-ST elevated myocardial infarction) pt. 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 POLST (Physician Orders for Life-Sustaining Treatment) done 02/16/20 Pulmonary hypertension Respiratory infection Systemic lupus erythematosus F/U with / Ramona @ [facility] – [place] Surgical History Surgical History (Updated 07/04/21 @ 10:00 by Gregor Mclean) History of hysterectomy History of partial colectomy partial bowel resection-colectomy with colosotmy ad reversal, abdominal adhesions History of surgical removal of ganglion cyst both wrists History of tonsillectomy and adenoidectomy History of total right knee replacement (TKR) Hx of bilateral cataract extraction Hx of section Hx of knee surgery S/p bilateral carpal tunnel release Status post total left knee replacement (~1999) Tobacco Smoking/Tobacco Use Status: Former Tobacco Use Alcohol Alcohol Intake: current Alcohol intake frequency: holidays/special occasions only Substance Use Substance use: Never Substance use type: does not use Vital Signs and Lab Results Vital Signs Most Recent Vital Signs in EMR: Most Recent Vital Signs Temp Pulse Resp BP Pulse Ox 37.2 C 53 L 16 155/60 H 97 07/04/21 08:29 07/04/21 08:29 07/04/21 08:29 07/04/21 08:29 07/04/21 08:29 Lab Results Blood Type / Crossmatch: No Data to Display Complete Blood Count: White Blood Count 6.81 10^3/uL (4.4-10.8) 06/28/21 13:50 06/28/21 Red Blood Count 3.79 10^6/uL (3.93-5.22) L 06/28/21 13:50 06/28/21 Hemoglobin 11.6 g/dL (11.2-15.7) 06/28/21 13:50 06/28/21 Hematocrit 36.0 % (36.0-46.0) 06/28/21 13:50 06/28/21 Platelet Count 283 10^3/uL (130-400) 06/28/21 13:50 06/28/21 Complete Metabolic Panel: Sodium Level 142 mmol/L (136-145) 06/28/21 13:50 06/28/21 Potassium Level 4.2 mmol/L (3.5-5.1) 06/28/21 13:50 06/28/21 Chloride Level 103 mmol/L (98-107) 06/28/21 13:50 06/28/21 Carbon Dioxide Level 30.9 mmol/L (21.0-32.0) 06/28/21 13:50 06/28/21 Blood Urea Nitrogen 26 mg/dL (7-18) H 06/28/21 13:50 06/28/21 Creatinine 2.0 mg/dL (0.55-1.02) H 06/28/21 13:50 06/28/21 Estimated GFR/1.73 m2 24.03 (mL/min/1.73m2) 06/28/21 13:50 06/28/21 Calcium Level 9.0 mg/dL (8.5-10.1) 06/28/21 13:50 06/28/21 Glucose Level 89 mg/dL (74-106) 06/28/21 13:50 06/28/21 Liver Function Panel: No Data to Display Coagulation Panel: INR International Normalized Ratio 1.1 (0.9-1.1) 07/04/21 08:35 07/04/21 Prothrombin Time 10.7 sec (9.3-11.0) 07/04/21 08:35 07/04/21 Cardiac Panel: No Data to Display Arterial Blood Gas: No Data to Display Venous Blood Gas: No Data to Display Pancreas Panel: No Data to Display Thyroid Panel: No Data to Display Infectious Disease: Coronavirus (COVID-19)(PCR) Negative (Negative) 07/02/21 10:34 07/02/21 Coronavirus 2019 Source Nasal/Nares 07/02/21 10:34 07/02/21 Blood Cultures: No Data to Display Toxicology Panel: No Data to Display Imaging and Studies Imaging and Studies EKG Summary: 01/02/2021 Conclusion Sinus rhythm...normal P axis, V-rate 60- 99 Prolonged TX interval...TX >220, V-rate 50- 90 Left bundle branch block...QRSd>120, broad/notched R Stress Test Summary: 12/06/2019 Stress ECG Conclusion 1. Electrocardiographically nondiagnostic due to resting EKG abnormalities (LBBB) and an adequate heart rate achieved Echocardiogram Summary: 11/11/2019 Indications: CHF Conclusion Left Ventricle : The left ventricle is normal size. The left ventricular ejection fraction is within the normal range. Mild left ventricular hypertrophy. There is normal LV segmental wall motion but there is paradoxical septal motion. Diastolic function is indeterminate but there is evidence of elevated filling pressures. LVEF is estimated to be 55-60%. Right Ventricle : Right ventricle is mildly dilated. The right ventricular systolic function appears normal. Atria : Left atrium is mild to moderately dilated. Right atrium is mildly dilated. Aortic Valve : Aortic valve is thickened but has adequate excursion. There is no hemodynamically significant aortic stenosis. Trace aortic regurgitation. Mitral Valve : The mitral valve is mildly thickened. Moderate mitral regurgitation. No evidence of mitral valve stenosis. Great Vessels : The IVC is dilated, but collapses >50% with inspiration. Estimated RVSP is 33-41 mmHg. Compared to echocardiogram dated 09/29/2018: There is no significant change. Carotid Artery Summary:: 11/02/2018 IMPRESSION: Mild amount of plaque in the proximal right internal carotid artery. Mild velocity elevation corresponding to 50-60% stenosis. No significant left internal carotid artery stenosis. 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 Clinical correlation recommended. Anesthesia Assessment and Plan Anesthesia History Personal History: No History of Anesthesia Complications Family History: No Family History of Anesthesia Complications Exercise Tolerance Exercise Tolerance: Metabolic Equivalents>4 Pertinent Negatives Pertinent Negatives: No Symptoms of GERD, No Major Cardiovascular Symptoms or Complaints, No Major Pulmonary Symptoms or Complaints and No History of CVA/TIA Cardiac & Pulmonary Exam Cardiac Exam: Normal S1/S2 Heart Sounds Pulmonary Exam: Clear Bilateral Breath Sounds Airway Exam Known Difficult Airway: No Mallampati Class: 2 Mouth Opening: Normal (> 3cm) Thyromental Distance: Greater than 3 cm Neck Range of Motion: Full ROM Neck Circumference: Normal Teeth Condition: Normal Dentition, Removable Dentures/Plates Upper and Removable Dentures/Plates Lower ASA Classification ASA Score: ASA 3 Emergency Case?: No NPO Status NPO Status: NPO Clears >2 hours, Solids >8 hours (Sips woth ) Anesthesia Plan Resuscitation Status: DNR/DNI Suspended During Perioperative Period Anesthesia Technique: Spinal Anesthesia Airway Planned: Natural Airway Pain Management: Surgeon and patient request nerve block Monitors Used: Standard Monitors
[2021-07-04] MEDS: Celecoxib 200 MG CAP 400 MG PO (09:31)
[2021-07-04] MEDS: Lactated Ringers 1,000 ML 80 ML IV ×3 (09:31→23:43)
[2021-07-04] MEDS: Acetaminophen 500 MG TAB 1000 MG PO ×2 (09:31→20:24)
[2021-07-04] MEDS: Gabapentin 300 MG CAP PO ×2 (09:31→23:01)
--- NOTE | 2021-07-04 09:45 | W.PM.DSUDISC ---
Discharge Plan Disposition Patient Disposition: HOME Condition: Stable Discharge Details Reason For Visit: REVISION Admit Date/Time: 07/04/21 08:23 Admit Provider: Cordell Gipson Attending Provider: Cordell Gipson Primary Care Provider: Lyubov Tee V Home Meds and New Rx's Prescriptions: New celecoxib [Celebrex] 200 mg capsule 200 mg PO BID Qty: 60 RF: 0 acetaminophen [Tylenol Extra Strength] 500 mg tablet 500 mg PO Q6H PRNQty: 90 RF: 0 pantoprazole [Protonix] 40 mg tablet,delayed release (DR/EC) 40 mg PO DAILY Qty: 30 RF: 0 gabapentin 300 mg capsule 300 mg PO QHS Qty: 14 RF: 0 oxycodone 5 mg tablet 5 mg PO Q4H PRNQty: 18 RF: 0 Continued hydroxychloroquine 200 mg tablet 400 mg PO DAILY RF: 0 metoprolol succinate 50 mg tablet extended release 24 hr 50 mg PO DAILY RF: 0 furosemide 20 mg tablet 80 mg PO DAILY AM RF: 0 pramipexole 0.25 mg tablet 0.5 mg PO QHS RF: 0 famotidine 20 mg tablet 20 mg PO .COMPLEX RF: 0 warfarin 5 mg tablet 5 mg PO DAILY Qty: 0 RF: 0 Savella 50 MG tablet 50 mg PO BID RF: 0 tramadol [Ultram] 50 mg tablet 50 mg PO HS RF: 0 atorvastatin [Lipitor] 20 mg Tablet 20 mg PO DAILY RF: 0 nitroglycerin 0.4 mg tablet, sublingual 0.4 mg SL Q5-15M PRN (Reason: chest pain) Qty: 20 RF: 0 hydralazine 10 mg Tablet 10 mg PO TID Qty: 0 RF: 0 amiodarone [Pacerone] 200 mg Tablet 200 mg PO DAILY Qty: 0 RF: 0 polyethylene glycol 3350 [Miralax] 17 gram Powder In Packet 17 g PO DAILY RF: 0 albuterol sulfate [ProAir HFA] 90 mcg/actuation Hfa Aerosol Inhaler 90 mcg INHALATION DAILY RF: 0 furosemide 40 mg Tablet 40 mg PO HS RF: 0 enoxaparin 100 mg/mL syringe 100 subcut RF: 0 DS: Diagnosis Discharge Diagnosis (1) Painful total knee replacement, left: Status: Acute (2) Status post total left knee replacement: Status: Acute
[2021-07-04] MEDS: ceFAZolin 2,000 MG in Normal Saline 100 ML 200 MG IVPB (10:26)
[2021-07-04] MEDS: Bupivacaine 0.25% Pres-Free 30 ML VIAL (10:59)
[2021-07-04] MEDS: Normal Saline 20 ML VIAL (11:00)
[2021-07-04] MEDS: Ketorolac 30 MG/ML VIAL (11:00)
--- NOTE | 2021-07-04 12:32 | W.ANESNERVE ---
Nerve Block Single Injection Procedure Date and Time Date Performed: 07/04/21 Procedure Start: 10:10 Location Where Procedure Performed Procedure Location: PACU Reason Performed: Postoperative Analgesia Requesting Provider: Cordell Gipson Timeout Performed Timeout Performed: Yes Monitoring Used ECG, Blood Pressure and SpO2 Sterility Sterility: Hand Hygiene, Surgical Cap, Surgical Mask, Sterile Gloves and Chlorhexidine Sedation Given During Procedure Sedation Given (Indicate Dose Given): Versed IV Dose:: 2 mg Patient Mental Status Patient Mental Status: Sedate with meaningful communication Nerve Block 1st Nerve Block: Laterality: Left Block Type: Adductor Canal Needle / Catheter Used: 100mm SonoPlex II Local Anesthetic Bolus (Indicate Dose Given): Lidocaine used for local infiltration of skin, Injected in 3-5ml increments after negative blood aspiration and Bupivacaine 0.25% Dose:: 15 ml Additives (Indicate Dose Given): None Ultrasound: Sterile probe cover and gel used Ultrasound Image Saved?: No Nerve Stimulator: Not Used Paresthesia: None Procedure Tolerated: No Complications and Patient tolerated well Procedure Outcome: Successful Performed By: Davide Mcgill Supervised By: Anaya Wyatt
--- NOTE | 2021-07-04 14:45 | DI.RAD_ITS ---
Exam(s) XR KNEE LT 2V AP,LAT EXAM: XR KNEE LT 2V AP,LAT CLINICAL HISTORY: s/p revision LTK. TECHNIQUE: 2D digital imaging was performed. COMPARISON: CR XR KNEE LT 3V AP,LAT,ROBERTH from 07/18/2020 FINDINGS: BONES: Since the prior examination the patient has undergone a revision of the left total knee replac [facility]. The orthopedic hardware appears in good position. No evidence of hardware failure. No acute fracture is identified. JOINTS: The joint spaces are well maintained. No joint effusion is present. No dislocation. SOFT TISSUE: Normal. IMPRESSION: Left total knee replacement. DATA REPOSITORY: RADIATION DOSE DELIVERED:
--- NOTE | 2021-07-04 14:49 | W.ANESPOSTOP ---
Postoperative Evaluation Date, Time and Location Date Performed: 07/04/21 Time Performed: 14:40 Patient Location: PACU Vital Signs Most Recent Imported Vital Signs: Most Recent Vital Signs Temp Pulse Resp BP Pulse Ox 36 C L 61 12 135/68 97 07/04/21 14:36 07/04/21 14:36 07/04/21 14:36 07/04/21 14:36 07/04/21 14:36 Pain Score Most Recent Pain Score: Most Recent Pain Score Pain Level 0 07/04/21 08:29 Assessment Mental Status: Awake (Alert & Oriented to Patient Baseline) Airway and Respiratory Function: Patent airway with normal (patient baseline) respiratory exam Cardiovascular Function: Hemodynamically Stable Hydration Status: Adequately Hydrated Nausea & Vomiting: No Nausea or Vomiting Pain: Pt. Denies Any Pain Peripheral Nerve Block: Regional nerve block not resolved at time of post operative discharge
[2021-07-04] MEDS: oxyCODONE 5 MG TAB PO ×2 (15:11→23:44)
--- NOTE | 2021-07-04 16:41 | PT.INIE ---
Date of service: 07/04/21 Time of Service: 16:41 PT Notes Visit Reasons: REVISION Physical Therapy Inpatient Initial Evaluation Date: 07/04/2021 Referring Doctor: KANCHAN Shi PT Orders: PT CONSULT: Status post Ortho surgery Precautions: Fall. Standard. WBAT on the left LE with AD. Patient Profile/Admitting Diagnosis: Lyubov is a 80-year-old female with left total knee arthroplasty prosthesis loosening status post left total knee arthroplasty revision on postoperative day 0. PMHX: Medical History Atrial fibrillation Chronic diastolic CHF (congestive heart failure) CKD (chronic kidney disease), stage III Depression Diverticulosis of colon DNI (do not intubate) DNR (do not resuscitate) Fibromyalgia Gastroesophageal reflux Goals of care, counseling/discussion History of tobacco use Hydronephrosis Hyperlipidemia Hypertension Intestinal adhesions Normocytic anemia NSTEMI (non-ST elevated myocardial infarction) Palliative care patient POLST (Physician Orders for Life-Sustaining Treatment) done 02/16/20 Pulmonary hypertension Respiratory infection Systemic lupus erythematosus Surgical History History of hysterectomy History of partial colectomy partial bowel resection-colectomy with colosotmy ad reversal, abdominal adhesions History of surgical removal of ganglion cyst both wrists History of tonsillectomy and adenoidectomy Hx of bilateral cataract extraction Hx of section Hx of knee surgery S/p bilateral carpal tunnel release Status post total left knee replacement (~1999) Social History/Home Situation: Lives with son and [id number]-zhy in a private home with 2 steps to enter with 1 rail. Independent with all mobility ADL performance without AD prior to surgery although she states that she had increasing difficulty with ambulation performance leading up to surgery. 8 falls in the past year, with patient having tendency to fall forward. Equipment Owned/DME: None Subjective: Agreeable to PT consult. Reports 4/10 pain in the left knee with weight bearing. Objective: General Observation: Supine in bed. NANDO wraps to left LE. Cryocuff on the right knee. IV in the right LE. Mental Status: Alert and oriented as to person, place, time, and purpose. Able to pay attention, focus, and respond appropriately. Pain: 4/10 in right knee ROM: Right Lower Extremity: Hip flexion WFL. Hip abduction WFL. Knee flexion 10 degrees to 100 degrees. Knee extension -10 degrees ankle dorsiflexion WFL. Ankle plantarflexion WFL. Left Lower Extremity: Hip flexion WFL. Hip abduction WFL. Knee flexion WFL. Ankle dorsiflexion WFL. Ankle plantarflexion WFL. Strength: Right Lower Extremity: Hip flexors 5/5. Hip abductors 5/5. Knee flexors 3-/5. Knee extensors 3-/5. Ankle dorsiflexors 5/5. Ankle plantarflexors 5/5. Left Lower Extremity: Hip flexors 5/5. Hip abductors 5/5. Knee flexors 4-/5. Knee extensors 4-/5. Ankle dorsiflexors 5/5. Ankle plantarflexors 5/5. Bed Mobility/Transfers: Supine to sit supervision with HOB at 30 degrees Sit to stand contact-guard assist Stand to sit contact-guard assist Bed to reclining chair contact-guard assist Gait: Instructed patient with level surface ambulation of about 30 feet requiring contact-guard assist. Kelin decreased. Step height on the left decreased. Step length on the left decreased. Denies headache, chest pain, and dizziness. Step to gait pattern. Balance: Static Sitting: Normal Dynamic Sitting: Normal Static Standing: Fair Dynamic Standing: Fair Special Tests: Mobility Limitations Standardized Measure [facility] AM-PAC 6 clicks Basic Mobility Inpatient Short Form: Raw Score: 18 CMS Score: 47% deficit Informed Consent/Education: Patient was instructed in purpose of PT consult and plan of care. Agreeable to proceed with established PT POC to achieve personal goals. Assessment: Lyubov is a 80-year-old female with left total knee arthroplasty prosthesis loosening status post left total knee arthroplasty revision on postoperative day 0. Requires contact-guard assist and the use of a walker to reduce fall risk for transfer and ambulation task performance. Patient presents with clinical signs and symptoms consistent with current/admitting diagnoses that have resulted to mobility limitations, gait instability, generalized weakness, and overall ADL decline as demonstrated by the following impairment level findings: 1. Decreased strength to left knee major muscle groups 2. Impaired sitting/standing balance 3. Impaired activity tolerance 4. Limitation of joint range of motion in left knee Impairments are contributing to the following functional limitations: 1. Decline in bed mobility skills 2. Decline in transfer skills 3. Difficulty with ambulation without assistive device and physical assistance 4. Increased completion time for mobility ADL performance 5. Increased risk for falls 6. Difficulty with managing steps alone safely Patient is assessed as a [id number] complexity based on the following: History: 80-year-old female with past medical history as indicated above Examination: Demonstrable impairment in strength, balance, and mobility level with underlying impairments and functional limitations as exhibited above as well as deficit score of a fall 1947 % utilizing the [facility] Mobility Inpatient Short Form Presentation: Evolving Decision Makin moderate complexity Goals: Goals X1 week 1. Supine-Sit independent 2. Sit-Supine independent 3. Sit-Stand independent 4. Stand-Sit independent with FWW 5. Bed-Chair independent with FWW 6. Chair-Bed independent with FWW 7. Independent gait on level surface with use of FWW for at least 100 feet without report of pain nor dyspnea 8. Independent stair negotiation while holding onto 1 rail for at least 2 steps without report of pain nor dyspnea 9. Independent with home exercise program 10. Good static and dynamic standing balance/tolerance Plan of Care/Treatment Plan: 1-2x/day, 7 days/week x 1 week. Plan of care has been reviewed with the [employer] providing the service under Physical Therapy direction. Initiate Physical Therapy intervention for pain management as needed, strengthening, bed mobility, transfers, gait, stairs, balance training, and use of assistive device. DISCHARGE RECOMMENDATIONS: Home when medically cleared by her surgeon. Outpatient PT services to facilitate return to independent community ambulation without an assistive device. TREATMENT CODE/TIME: 80712 x 20 minutes, 9753 0 x 24 minutes at 16:41 PM. Thank you for the opportunity to participate in the care of this patient. Milana Byrd PT, DPT, CLT [facility] [place], [place]
[2021-07-04 17:52] LABS: HCT 30.1 % (36.0-46.0); HGB 9.8 g/dL (11.2-15.7); MCH 31.4 pg (27.0-33.0); MCHC 32.6 % (32.0-36.0); MCV 96.5 fL (80-95); MPV 9.8 fL (8.0-11.0); Platelet Count 229 10^3/uL (130-400); RBC 3.12 10^6/uL (3.93-5.22); RDW 12.6 % (11.7-14.6); RDW-SD 44.9 fL; WBC 11.46 10^3/uL (4.4-10.8)
[2021-07-04] MEDS: ceFAZolin 1 GM/50 ML BAG IVPB (18:22)
[2021-07-04] MEDS: Enoxaparin 100 MG/ML SYR SC (20:20)
[2021-07-04] MEDS: Warfarin 5 MG TAB PO (20:21)
[2021-07-04] MEDS: Celecoxib 100 MG CAP PO (20:21)
[2021-07-04] MEDS: hydrALAZINE 10 MG TAB PO (20:22)
[2021-07-04] MEDS: HYDROmorphone 2 MG/ML VIAL 0.5 MG IVP (22:59)
[2021-07-04] MEDS: Pramipexole 0.25 MG TAB 0.5 MG PO (23:01)
[2021-07-04] MEDS: Normal Saline Flush 10 ML SYR IV (23:02)
[2021-07-05] MEDS: ceFAZolin 1 GM/50 ML BAG IVPB ×2 (01:30→09:58)
[2021-07-05 03:36] VITALS: BP 114/60; PULSE 56; RESP 17; TEMP 37; O2SAT 96
[2021-07-05] MEDS: Furosemide 20 MG TAB 80 MG PO (06:01)
--- NOTE | 2021-07-05 07:02 | ROE_ITS ---
Date of service: 07/04/21 Time of Service: 14:02 Operative Note Operative Note DATE OF PROCEDURE: 07/05/21 PRE-OP DIAGNOSIS: Loose Left Knee Arthroplasty POST-OP DIAGNOSIS: same PROCEDURE: Revision Left Total Knee Replacement with patellar resurfacing SURGEON: Cordell Gipson [employer] CREWMEMBER: Lyubov Fonseca Refer to Anesthesia Record ESTIMATED BLOOD LOSS: 250 PATHOLOGY: none sent TOURNIQUET TIME: 0 COMPLICATIONS: None Patient was transported to: PACU Patient's condition: stable Implants: TIBIA: 1. Depuy Sigma Rotating Platform Revision Tibial Component, Size 3 2. Depuy Sigma [id number] Cementless stem 3. Depuy Sigma 29mm Cementless Sleeve FEMUR: 1. Depuy Sigma TC3 Revision Femoral Component, Size 4 2. Depuy Sigma Augments: - 4mm Posterior-Medial - 4mm Posterior-Lateral - 8mm Distal-Medial - 12mm Distal-Lateral 3. Depuy Sigma [id number] Cementless Stem 4. Depuy Sigma 40mm Cementless Sleeve 5. Depuy 4x15mm TC3 Rotating Platform Poly PATELLA 1. Depuy Attune Patellar Component, Size 35 Indications: I have seen Chandni in clinic for symptoms of LEFT knee pain from a loose left knee arthroplasty, confirmed with radiographic findings. Chandni has exhausted nonoperative methods and was having significant limitations in daily function and desired better function and less pain. I discussed the technical details of a revision knee replacement. I explained the risks of the procedure to include, but not limited to, bleeding, infection, pain, stiffness, fracture, damage to nerves and vessels, damage to muscles and tendons, loosening, need for repeat procedure, blood clot and cardiopulmonary demise. Despite these risks, Chandni elected to proceed. Findings: There was gross loosening of both femoral and tibial components. Areas of osteolysis were prevalent throughout but worst over the distal and posterior femur. Procedure Description: Chandni was greeted in the preoperative holding area where the correct side was identified and marked. The consent was reviewed with the patient and signed. The history and physical was updated. All questions were answered. Preoperative mediacations were administered: Acetaminophen 1000mg, Celebrex 400mg, and Gabapentin 300mg. An adductor canal block was then administered by the anesthesia team in the PACU. Chandni was taken back to the operating room. A spinal anesthestic was then administered. The patient was placed into the supine position on the operating room table. A nonsterile tourniquet was placed high onto the leg but only used for cementing. Posts were placed for positioning during the procedure. All bony prominences were well padded. Prophylactic antibiotics in the form of Cefazolin were administered. 1g of Tranxemic Acid was given intravenously within 30 minutes of incision. The left leg was then prepped with Chloraprep and draped in a standard fashion with impervious stockinette. A second prep with Chloraprep was performed prior to application of Iodine impregnated skin protection. A timeout to confirm correct identity, side and site, procedure, allergies, anesthesia, and medical concerns was performed. With the knee in some flexion, a midline incision was made overlying the knee utilizing a portion of the old incision. Full thickness skin flaps were raised once the extensor mechanism was encountered. These were raised medially and laterally. Any bleeding was controlled with electrocautery. Once the extensor mechanism was fully exposed, a medial parapatellar arthrotomy was performed in a flexed position. All bleeding from the arthrotomy and the geniculate arteries was coagulated. A medial subperiosteal peel was performed with electrocautery to the midcoronal plane so that the entire periphery of the tibial component to be visualized. The entire medial tibial plateau was exposed. The fat pad was removed while keeping the patellar tendon protected. The previous patella was then resurfaced and showed signs of chondromalacia throughout the central and lateral aspects. A synovectomy was performed focused within the gutters and in the anterior synovium. Remnants of the PCL were resected. The knee was then flexed with the patella everted. There is significant synovitis seen throughout the knee. In flexing the knee is apparent that the tibial component was loose as there was fluid seen extravasating from under the implant itself. There is also notable osteolysis seen on the femoral component. Using a thin flexible osteotome I was able to easily slide this underneath the implant of the femur. It was noticeably loose due to the osteolysis and its appearance and therefore we continue with a complete knee revision. Using the stem flexible osteotomes I worked around both medial lateral aspects of the femoral component to make sure I would free of any adherent cement to minimize bone loss. Once was completed a few gentle taps with a bone tamp release the femoral component. The majority of the cement was still on the implant. There is no notable bone loss from removing the implant. However, there was significant soft tissue seen on the bone surface. This was cleaned and removed with a curette and a rongeur. Unfortunately, there was notable osteolysis in this area. There were central defects seen within the distal and the posterior aspect of the femur. The majority these were contained with a rim of cortical bone. Most of these defects did not involve more than 50% of that surface area. These were cleaned and all soft tissue was removed. Any excess cement from the femur was also. Attention was then turned to the tibia. In a similar fashion I used thin flexible osteotomes to free up any remaining interface between the cement and the implant. With a few light taps against the tibial component I was able to remove this without difficulty. The majority the cement this time was on the tibia itself. Using osteotomes I created cruciate lopez within the cement to freed up from its underlying bone. This was fully removed. Once all the cement was removed the tibia was inspected and while there is some areas of osteolysis seen around the central keel and posteriorly, there is no significant bone loss appreciated except some possible subsidence posteriorly as the anterior tibia was much higher than the posterior tibia. The wounds and thoroughly irrigated for better visualization. Once again the entire tibial plateau was able to be visualized and any soft tissue and cement was removed. Likewise, the entire femur was visualized and inspected. Any scar tissue posteriorly and synovitis was recessed off of the posterior femur for better visualization. The tibia was then prepared. This was first done by sounding the tibial canal. Afterwards I reamed the tibial canal by hand until there is good cortical contact, size 16 mm. This was plan for 75 mm stem. Given her age and bone quality I did prefer to proceed with a sleeve for better fixation. The path of the sleeve was first prepared with a reamer and then prepared with the broach. A 29 mm sleeve broach obtained excellent rotational control. The broach was seated to the proposed tibial cut surface. This primarily removed bone anteriorly with really no resection posteriorly. With the soft tissues protected and using a small oscillating saw I removed bone in plane with the top of the broach. Once again, this primarily moved bone anteriorly and just barely cut bone posteriorly removing as little as possible. Then the trial component was placed into the tibia with a 29 mm sleeve and a 16 x 75 mm stem.. Rotation was set and the flange was punched. This tibial component remained intact for later trialing. Attention was now turned to the femur. The canal of the femur was then sounded. I began prepping the femur using reamers on hand. The plan was to resect very little bone of the distal femur and use this as our joint line reference. The reamer was taken down to his appropriate depth and a size 20 mm stem provided cortical contact. Once again, given the osteolysis and her soft bone quality I proceeded with a sleeve. I broached up to a size 34 mm broach. This was inserted at the appropriate depth to match up to the proposed joint line surface. I then prepared the distal femur taking a 1 mm cut off of the medial side. This was using a 5 degree valgus angle. There was no bone of the lateral side so therefore I cut for a 4 mm augment over the distal lateral aspect of the femur. The 4-in-1 cutting guide was then placed and rotation was set using a gap balancing technique with a flexion gap block sitting on the tibial tray at 90 degrees of flexion. All 4 cuts were prepared. There is still some bone posteriorly although there was cavitary lesions within the posterior condyles it was contained with at least 50% bone remaining so therefore I did not perform any augments posteriorly. After this cuts were made the notch cutter was placed for the TC 3 component. Using a reciprocating saw the notch cut was prepared. After this preparation a trial component was placed. A size 20 mm polyethylene trial was placed and the knee was taken through range of motion. It had excellent extension with good balance between varus and valgus stress without significant gapping. Likewise in flexion the knee had good stability to varus valgus stress. However, it was noticed that the patella was quite low. In assessment it seemed that the inferior edge of the patella was at best at the level of the joint line. At this point I realized that the initial surgeon had likely raise the joint line more than I appreciated based on the preoperative x-rays and I did not take this into account with initial preparation of the femur. Given the low position of the patella I was concerned about her ability to flex and potential patellar wear and therefore I went back to the femur for repreparation. My goal was to distalize the femur so I went back to the beginning inserting the reamer to his appropriate depth with the plan of distalizing 8 mm on the medial side which correspond to 12 mm in the lateral side. I repeated the broach steps and now was able to fit a 40 mm broach into the distal femur with good control. I went up in size of the femur to a size 4 and also posterior rise to 2 mm to make up for the difference would be losing in the flexion gap by distalizing the femur. There is just about 4 mm of gap in the posterior condyles so I selected 4 mm augments posteriorly. I did not want resect any more posterior bone. The trial component was then prepared with 8 mm augment medially and 12 mm augments laterally distal and 4 mm bilateral posterior augments. This was then inserted along with a 15 mm polyethylene which had excellent stability in both extension and flexion. It now appeared that the patella was about 1 fingerbreadths above the joint line, while not perfect, was much better than before and the patella was tracking within the trochlear groove. The trial components were then removed making sure not to disrupt their orientation for reference on preparation of the back table. The necessary components were opened on the back table while the knee was fully prepared with aggressive irrigation and soft tissue resection. Any remnant soft tissue seen around the femur the tibia was removed. Any remnant synovitis was also removed. The patella was prepared using a patellar clamp. It measured 22 mm in its thickness and was resected down to 13 mm. A size 35 mm patella was the correct size. Lug holes for this patella were then drilled. On the back table the tibial and femoral components were assembled based on the trial implants with appropriate rotation and offset. The periosteal and capsular tissues, especially posteriorly, around the knee were then systematically injected with a periarticular cocktail consisting of 50cc 0.25% Marcaine, 30mg Ketorolac, 20cc of Exparal and 50cc of injectable saline. The knee was thoroughly irrigated with a pulse lavage and dried. Once the components were assembled we then proceeded with mixing cement. Two batches of medium viscosity cement were prepared with vacuum assistance. After the cement was ready a small amount was placed on to the back side of the tibial component at the keel making sure no cement was on the stem or sleeve. A small amount was placed onto the posterior flange of the femur. Cement was manual pressurized and impregnated into the cut surface of the tibia only ensuring that no cement made it down the canal. The tibial component was then inserted into the cut surface and impacted into position. Excess cement was removed and the component was reimpacted. Again, excess cement was removed and our attention was then turned to the femur. The femoral cut surface was once again dried and cement was manually impacted into the cut surface. This was especially true at the defects to make sure that the cement filled in the irregularities of the femoral surface. The femoral component was then impacted. Excess cement was removed by cutting it away from the implant to make sure the cement was not removed from underneath the flange of the femur. It was ensured to be down against the cut surface distally. The trial polyethylene was then inserted and the leg was brought out into full extension for the duration of the cement curing process, approximately 18min. Cement was lastly manually impacted into the cut surface of the patella and the patellar button was clamped into position and held. During this process attention was turned to the gutters of the knee and for all interfaces for any excess cement. While the cement was hardening, the knee was irrigated with Irrisept chlorhexadine solution. This was allowed to sit in the knee for 3 minutes. After the cement had finally cured, approximately 18min, the clamp was removed from the patella and the knee was taken through range of motion. A size 15 mm polyethylene component provided the best range of motion and stability with less than 2mm gapping with medial and lateral stress and full extension without significant hyperextension. The patella was wanting to track slightly lateral with no medial retinacular closure. I therefore performed a lengthening of the lateral retinaculum by partially incising the retinaculum from its deep surface as well as the superficial service in different locations creating a Z- lengthening such that I was able to move the lateral border of the patella slightly medial to the trochlea. Tracking improved at this point. The trial poly was removed and once again the knee was checked for any loose, excess, or errant cement. The poly component was then inserted after cleaning and drying the tibial tray. The capsule was then reapproximated with a No. 1 Vicryl at multiple locations. The capsule was finally closed with a No. 2 Stratafix, barbed suture. The second dose of 1g TXA was started. Deep tissues were then reapproximated with 0 Vicryl and 2-0 Vicryl. The skin was closed with a running 3-0 Monocryl in a subcuticular fashion. This was reinforced with skin glue. A Mepilex silver dressing was applied along with a [id number] NANDO wrap. A CryoCuff was applied. Chandni was transferred to the hospital bed without difficulty an suffering no apparent complication. Chandni has a good prognosis. Physical therapy will start today and without restrictions, weight-bearing as tolerated. She will return to her usual Coumadin dose for DVT prophylaxis.
[2021-07-05 07:59] VITALS: BP 130/66; PULSE 60; RESP 16; TEMP 37; O2SAT 97
[2021-07-05] MEDS: Atorvastatin 20 MG TAB PO (08:11)
[2021-07-05] MEDS: Polyethylene Glycol 3350 17 GM PACKET PO (08:11)
[2021-07-05] MEDS: Celecoxib 100 MG CAP PO (08:11)
[2021-07-05] MEDS: Enoxaparin 100 MG/ML SYR SC (08:11)
[2021-07-05] MEDS: Pantoprazole 40 MG TABCR PO (08:12)
[2021-07-05] MEDS: Amiodarone 200 MG TAB PO (08:12)
[2021-07-05] MEDS: Famotidine 20 MG TAB PO (08:12)
[2021-07-05] MEDS: Metoprolol CR 50 MG TABCR PO (08:12)
[2021-07-05] MEDS: oxyCODONE 5 MG TAB PO (08:13)
[2021-07-05] MEDS: Acetaminophen 500 MG TAB 1000 MG PO (08:14)
--- NOTE | 2021-07-05 08:15 | W.PM.DS.N ---
Documented by User: KANCHAN Shi 07/04/21 09:54 Date of service: 07/04/21 DS: Diagnosis Discharge Diagnosis (1) Painful total knee replacement, left: Status: Acute (2) Status post total left knee replacement: Status: Acute Discharge Plan Disposition Patient Disposition: HOME W/HOME HEALTH SERVICE Condition: Stable Discharge Details Reason For Visit: REVISION LEFT KNEE REPLACEMENT Admit Date/Time: 07/04/21 08:23 Admit Provider: Cordell Gipson Attending Provider: Cordell Gipson Primary Care Provider: Lyubov Tee V Hospital Course Hospital Course: Patient was admitted to the medical/surgical floor following the procedure. The surgery was tolerated well without any notable medical, surgical, or anesthetic complications. Mobilization began postoperatively. She was voiding spontaneously. Vitals were stable. Physical therapy worked with the patient and was cleared for discharge home. No acute medical issues. Pain was controlled on oral regimen. Home Meds and New Rx's Prescriptions: New celecoxib [Celebrex] 200 mg capsule 200 mg PO BID Qty: 60 RF: 0 acetaminophen [Tylenol Extra Strength] 500 mg tablet 500 mg PO Q6H PRNQty: 90 RF: 0 pantoprazole [Protonix] 40 mg tablet,delayed release (DR/EC) 40 mg PO DAILY Qty: 30 RF: 0 gabapentin 300 mg capsule 300 mg PO QHS Qty: 14 RF: 0 oxycodone 5 mg tablet 5 mg PO Q4H PRNQty: 18 RF: 0 Continued hydroxychloroquine 200 mg tablet 400 mg PO DAILY RF: 0 metoprolol succinate 50 mg tablet extended release 24 hr 50 mg PO DAILY RF: 0 furosemide 20 mg tablet 80 mg PO DAILY AM RF: 0 pramipexole 0.25 mg tablet 0.5 mg PO QHS RF: 0 famotidine 20 mg tablet 20 mg PO .COMPLEX RF: 0 warfarin 5 mg tablet 5 mg PO DAILY Qty: 0 RF: 0 Savella 50 MG tablet 50 mg PO BID RF: 0 tramadol [Ultram] 50 mg tablet 50 mg PO HS RF: 0 atorvastatin [Lipitor] 20 mg Tablet 20 mg PO DAILY RF: 0 nitroglycerin 0.4 mg tablet, sublingual 0.4 mg SL Q5-15M PRN (Reason: chest pain) Qty: 20 RF: 0 hydralazine 10 mg Tablet 10 mg PO TID Qty: 0 RF: 0 amiodarone [Pacerone] 200 mg Tablet 200 mg PO DAILY Qty: 0 RF: 0 polyethylene glycol 3350 [Miralax] 17 gram Powder In Packet 17 g PO DAILY RF: 0 albuterol sulfate [ProAir HFA] 90 mcg/actuation Hfa Aerosol Inhaler 90 mcg INHALATION DAILY RF: 0 furosemide 40 mg Tablet 40 mg PO HS RF: 0 Changed enoxaparin 100 mg/mL syringe 100 mg subcut Q12H Qty: 6 RF: 0 Discharge Instructions Additional Instructions: Total Knee Discharge Instructions Activity: The most important activity is to walk. You should try to take short walks a few times a day. It is important that when resting you work on keeping the knee straight. Avoid putting a pillow behind the knee as this will encourage flexion. Work on range of motion exercises as provided by Physical Therapy. If you have the [employer] bike coming, this will be your primary tool for exercise after the knee replacement. You should use it and follow the directions for the knee. Utilize the other exercises sparingly based on your symptoms. - Start outpatient physical therapy within 2 weeks. - You should wear the YESI hose on both legs for 2 weeks. You may remove these at night. You may also use any compression sock in place of the YESI hose. - Utilize [employer] to review exercises, see videos on exercises and obtain basic information pertaining to your surgery and your recovery. Dressing: Keep the surgical dressing (underneath the NANDO wrap) in place for at least one week. After the first week it may be removed and replaced with light gauze and tape or nothing. The wound and dressing may get wet after 3 days but avoid soaking the dressing or otherwise it will need to be changed. Many people prefer covering the dressing with cling wrap (saran wrap) to minimize it from getting soaked. If it gets wet, just pat dry. If it starts to peel off then it will need to be changed. Medications: - You should take Tylenol and anti-inflammatory Celebrex as your primary pain control medications. If the Celebrex is too expensive or not covered, please call the office for another alternative (Advil/Ibuprofen or Naproxen/Aleve) - You have been prescribed a stronger pain medication Oxycodone for breakthrough pain, take as needed as prescribed. - You have also been prescribed a stomach acid reduction agent Pantoprozole to help reduce stomach acid and reflux. - You have been prescribed Gabapentin to take at night for restlessness and nerve pain. - You will be resuming your Warfarin for DVT prevention unless instructed otherwise. You will take Lovenox for 3 days (100mg twice a day). - If you have constipation you should take Colace or Miralax (both [id number]). It takes most people 3-4 days to have a bowel movement. Follow-up: 2 weeks If you have any acute concerns or questions, please do not hesitate to contact the office at [phone]. You may contact Dr. Gipson with any questions after hours through the hospital at [phone] or on his cell phone at [phone]. 1. Encounter Date and Reason I certify that Chandni Lopez was seen by Cordell Gipson MD on 07/05/21 and that I had a [id number] encounter with this patient that meets the physician face to face encounter requirements. 2. Clinical Findings Supporting Skilled Need and Homebound Status I certify that home health services are medically necessary, include either intermittent snf and/or physical/speech therapy, and that this patient is homebound in that absences from the home require considerable and taxing effort and are infrequent or of short duration, or are attributable to the need to receive medical care. [X] (a) Attached documentation from encounter provides clinical findings supporting skilled need and homebound status (including what assistance patient requires to leave the home). The encounter with the patient was in whole, or in part, for the following medical condition, which is the primary reason for home health care: REVISION Intermediate: senior living is requested to assist with multiple medications and the checking of INR with resumption of Coumadin. Lovenox will be administered for the next 3 days and INR should be checked until stable. Physical Therapy: Physical therapy can be utilized to assist with returning function, strength, and motion. Chandni will have a home bike to help guide her recovery. She is WBAT without restriction. Speech Therapy: Homebound: Chandni isunable to leave her home unassisted due to weakness and ambulatory dysfunction. 3. Certification and Authentication I certify that I composed the above information based on my clinical judgment relating to this patient's medical condition and, if applicable, clinical findings communicated to me by the NPP or inpatient physician who performed the Home Health Referral. All further orders will be obtained through Dr. Gipson and Dr. Tee Referrals: Cordell Gipson MD [ [facility]] - Activity:: Activity as Tolerated Equipment/Supplies:: Walker Diet:: As Tolerated Discharge Orders Discharge Orders: Discharge Order (Routine); Ordered 07/05/21 Ordered By: Cordell Gipson DS: Data Vitals/I&O Vitals and I&O: Vital Signs Temperature 99.0 F 07/04/21 08:29 Pulse 53 L 07/04/21 08:29 Pulse Rhythm Regular 07/04/21 08:29 Respiratory Rate 16 07/04/21 08:29 Respiratory Effort 07/04/21 08:29 Respiratory Depth Normal 07/04/21 08:29 Respiratory Pattern Normal 07/04/21 08:29 Blood Pressure 155/60 H 07/04/21 08:29 Pulse Oximetry 97 07/04/21 08:29 Oxygen Delivery Method Room Air 07/04/21 08:29 Oxygen Flow Rate 0 07/04/21 08:29 Pain Level 0 07/04/21 08:29 Intake & Output 07/03/21 07/03/21 07/04/21 11:59 23:59 11:59 Weight 209 lb 15.986 oz 212 lb 11.937 oz Data Completed and Pending Labs on day of discharge: Labs from last 24 hours 07/04/21 08:35 PT 10.7 INR 1.1 [facility] Medical History Atrial fibrillation Chronic diastolic CHF (congestive heart failure) CKD (chronic kidney disease), stage III Depression Diverticulosis of colon DNI (do not intubate) DNR (do not resuscitate) Fibromyalgia Gastroesophageal reflux Goals of care, counseling/discussion History of tobacco use Hydronephrosis Hyperlipidemia Hypertension Intestinal adhesions Normocytic anemia NSTEMI (non-ST elevated myocardial infarction) pt. 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 POLST (Physician Orders for Life-Sustaining Treatment) done 02/16/20 Pulmonary hypertension Respiratory infection Systemic lupus erythematosus F/U with / Ramona [place] [facility] [place] Surgical History History of hysterectomy History of partial colectomy partial bowel resection-colectomy with colosotmy ad reversal, abdominal adhesions History of surgical removal of ganglion cyst both wrists History of tonsillectomy and adenoidectomy History of total right knee replacement (TKR) Hx of bilateral cataract extraction Hx of section Hx of knee surgery S/p bilateral carpal tunnel release Status post total left knee replacement (~1999) Family History Father Heart disease Diabetes Mother Heart disease Hypertension Son Diabetes Granddaughter No problems noted. Granddaughter No problems noted. Daughter Hemochromatosis Social History Smoking/Tobacco Use Status: Former Tobacco Use Quit Date: 10/20/89 Smoking risk assessment performed?: Yes Alcohol Intake: current Alcohol Intake frequency: holidays/special occasions only Drug use: Never Substance use type: does not use Caregiver/Support person: No Household members: none Housing: house Communication Needs: Hard of Hearing and Corrective Lenses Education Level: high school Do you need help understanding health information?: Always How often do you talk on the phone with friends or family?: three or more times per week How often do you get together with friends or relatives?: three or more times per week Panel score (0-1 are the most socially isolated patients): 1 What type of physical activity do you participate in: walking and sedentary lifestyle Duration: < 15 minutes/day Special marci needs: No Seatbelt use: always Do you feel safe at home: Yes Do you feel safe in your relationship?: Yes Documented by User: Cordell Gipson MD 07/05/21 08:16 Date of service: 07/05/21 Time of Service: 08:07 Discharge Plan Disposition Patient Disposition: HOME W/HOME HEALTH SERVICE Condition: Stable Discharge Details Reason For Visit: REVISION LEFT KNEE REPLACEMENT Admit Date/Time: 07/04/21 08:23 Admit Provider: Cordell Gipson Attending Provider: Cordell Gpison Primary Care Provider: Lyubov Tee V Hospital Course Hospital Course: Patient was admitted to the medical/surgical floor following the procedure. The surgery was tolerated well without any notable medical, surgical, or anesthetic complications. Mobilization began postoperatively. She was voiding spontaneously. Vitals were stable. Physical therapy worked with the patient and was cleared for discharge home. No acute medical issues. Pain was controlled on oral regimen. Home Meds and New Rx's Prescriptions: New celecoxib [Celebrex] 200 mg capsule 200 mg PO BID Qty: 60 RF: 0 acetaminophen [Tylenol Extra Strength] 500 mg tablet 500 mg PO Q6H PRNQty: 90 RF: 0 pantoprazole [Protonix] 40 mg tablet,delayed release (DR/EC) 40 mg PO DAILY Qty: 30 RF: 0 gabapentin 300 mg capsule 300 mg PO QHS Qty: 14 RF: 0 oxycodone 5 mg tablet 5 mg PO Q4H PRNQty: 18 RF: 0 Continued hydroxychloroquine 200 mg tablet 400 mg PO DAILY RF: 0 metoprolol succinate 50 mg tablet extended release 24 hr 50 mg PO DAILY RF: 0 furosemide 20 mg tablet 80 mg PO DAILY AM RF: 0 pramipexole 0.25 mg tablet 0.5 mg PO QHS RF: 0 famotidine 20 mg tablet 20 mg PO .COMPLEX RF: 0 warfarin 5 mg tablet 5 mg PO DAILY Qty: 0 RF: 0 Savella 50 MG tablet 50 mg PO BID RF: 0 tramadol [Ultram] 50 mg tablet 50 mg PO HS RF: 0 atorvastatin [Lipitor] 20 mg Tablet 20 mg PO DAILY RF: 0 nitroglycerin 0.4 mg tablet, sublingual 0.4 mg SL Q5-15M PRN (Reason: chest pain) Qty: 20 RF: 0 hydralazine 10 mg Tablet 10 mg PO TID Qty: 0 RF: 0 amiodarone [Pacerone] 200 mg Tablet 200 mg PO DAILY Qty: 0 RF: 0 polyethylene glycol 3350 [Miralax] 17 gram Powder In Packet 17 g PO DAILY RF: 0 albuterol sulfate [ProAir HFA] 90 mcg/actuation Hfa Aerosol Inhaler 90 mcg INHALATION DAILY RF: 0 furosemide 40 mg Tablet 40 mg PO HS RF: 0 Changed enoxaparin 100 mg/mL syringe 100 mg subcut Q12H Qty: 6 RF: 0 Discharge Instructions Additional Instructions: Total Knee Discharge Instructions Activity: The most important activity is to walk. You should try to take short walks a few times a day. It is important that when resting you work on keeping the knee straight. Avoid putting a pillow behind the knee as this will encourage flexion. Work on range of motion exercises as provided by Physical Therapy. If you have the [employer] bike coming, this will be your primary tool for exercise after the knee replacement. You should use it and follow the directions for the knee. Utilize the other exercises sparingly based on your symptoms. - Start outpatient physical therapy within 2 weeks. - You should wear the YESI hose on both legs for 2 weeks. You may remove these at night. You may also use any compression sock in place of the YESI hose. - Utilize [employer] to review exercises, see videos on exercises and obtain basic information pertaining to your surgery and your recovery. Dressing: Keep the surgical dressing (underneath the NANDO wrap) in place for at least one week. After the first week it may be removed and replaced with light gauze and tape or nothing. The wound and dressing may get wet after 3 days but avoid soaking the dressing or otherwise it will need to be changed. Many people prefer covering the dressing with cling wrap (saran wrap) to minimize it from getting soaked. If it gets wet, just pat dry. If it starts to peel off then it will need to be changed. Medications: - You should take Tylenol and anti-inflammatory Celebrex as your primary pain control medications. If the Celebrex is too expensive or not covered, please call the office for another alternative (Advil/Ibuprofen or Naproxen/Aleve) - You have been prescribed a stronger pain medication Oxycodone for breakthrough pain, take as needed as prescribed. - You have also been prescribed a stomach acid reduction agent Pantoprozole to help reduce stomach acid and reflux. - You have been prescribed Gabapentin to take at night for restlessness and nerve pain. - You will be resuming your Warfarin for DVT prevention unless instructed otherwise. You will take Lovenox for 3 days (100mg twice a day). - If you have constipation you should take Colace or Miralax (both nkvu-[id number]). It takes most people 3-4 days to have a bowel movement. Follow-up: 2 weeks If you have any acute concerns or questions, please do not hesitate to contact the office at [phone]. You may contact Dr. Gipson with any questions after hours through the hospital at [phone] or on his cell phone at [phone]. 1. Encounter Date and Reason I certify that Chandni Lopez was seen by Cordell Gipson MD on 07/05/21 and that I had a [id number] encounter with this patient that meets the physician face to face encounter requirements. 2. Clinical Findings Supporting Skilled Need and Homebound Status I certify that home health services are medically necessary, include either intermittent snf and/or physical/speech therapy, and that this patient is homebound in that absences from the home require considerable and taxing effort and are infrequent or of short duration, or are attributable to the need to receive medical care. [X] (a) Attached documentation from encounter provides clinical findings supporting skilled need and homebound status (including what assistance patient requires to leave the home). The encounter with the patient was in whole, or in part, for the following medical condition, which is the primary reason for home health care: REVISION Intermediate: senior living is requested to assist with multiple medications and the checking of INR with resumption of Coumadin. Lovenox will be administered for the next 3 days and INR should be checked until stable. Physical Therapy: Physical therapy can be utilized to assist with returning function, strength, and motion. Chandni will have a home bike to help guide her recovery. She is WBAT without restriction. Speech Therapy: Homebound: Chandni isunable to leave her home unassisted due to weakness and ambulatory dysfunction. 3. Certification and Authentication I certify that I composed the above information based on my clinical judgment relating to this patient's medical condition and, if applicable, clinical findings communicated to me by the NPP or inpatient physician who performed the Home Health Referral. All further orders will be obtained through Dr. Gipson and Dr. Tee Referrals: Cordell Gipson MD [ [facility]] - Activity:: Activity as Tolerated Equipment/Supplies:: Walker Diet:: As Tolerated Discharge Orders Discharge Orders: Discharge Order (Routine); Ordered 07/05/21 Ordered By: Cordell Gipson DS: Summary Time Spent with Patient providing and/or coordinating discharge services: Less than 30 minutes Status at Discharge Functional status at discharge: uses cane/walker Overall status at discharge: patient is progressing back to baseline Mental Status: mental status grossly normal Speech and Movement: speech and movement normal Mood: congruent mood Affect: normal affect Exam Narrative Exam Narrative: Sitting comfortable in a chair. LLE dressing c/d/i. ROM 0-90. Able to actively extend the knee. Psych Mental Status: mental status grossly normal Speech and Movement: speech and movement normal Mood: congruent mood Affect: normal affect [facility] Medical History Atrial fibrillation Chronic diastolic CHF (congestive heart failure) CKD (chronic kidney disease), stage III Depression Diverticulosis of colon DNI (do not intubate) DNR (do not resuscitate) Fibromyalgia Gastroesophageal reflux Goals of care, counseling/discussion History of tobacco use Hydronephrosis Hyperlipidemia Hypertension Intestinal adhesions Normocytic anemia NSTEMI (non-ST elevated myocardial infarction) pt. 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 POLST (Physician Orders for Life-Sustaining Treatment) done 02/16/20 Pulmonary hypertension Respiratory infection Systemic lupus erythematosus F/U with / Ramona [place] [facility] [place] Surgical History History of hysterectomy History of partial colectomy partial bowel resection-colectomy with colosotmy ad reversal, abdominal adhesions History of surgical removal of ganglion cyst both wrists History of tonsillectomy and adenoidectomy History of total right knee replacement (TKR) Hx of bilateral cataract extraction Hx of section Hx of knee surgery S/p bilateral carpal tunnel release Status post total left knee replacement (~1999) Family History Father Heart disease Diabetes Mother Heart disease Hypertension Son Diabetes Granddaughter No problems noted. Granddaughter No problems noted. Daughter Hemochromatosis Social History Smoking/Tobacco Use Status: Former Tobacco Use Quit Date: 10/20/89 Smoking risk assessment performed?: Yes Alcohol Intake: current Alcohol Intake frequency: holidays/special occasions only Drug use: Never Substance use type: does not use Caregiver/Support person: No Household members: none Housing: house Communication Needs: Hard of Hearing and Corrective Lenses Education Level: high school Do you need help understanding health information?: Always How often do you talk on the phone with friends or family?: three or more times per week How often do you get together with friends or relatives?: three or more times per week Panel score (0-1 are the most socially isolated patients): 1 What type of physical activity do you participate in: walking and sedentary lifestyle Duration: < 15 minutes/day Special marci needs: No Seatbelt use: always Do you feel safe at home: Yes Do you feel safe in your relationship?: Yes
[2021-07-05 08:22] LABS: INR 1.1 (0.9-1.1); Prothrombin Time 10.6 sec (9.3-11.0)
[2021-07-05 08:59] LABS: Anion Gap 7.1 mmol/L (3-11); BUN 35 mg/dL (7-18); CO2 29.9 mmol/L (21.0-32.0); CREATININE 2.2 mg/dL (0.55-1.02); Calcium 8.5 mg/dL (8.5-10.1); Chloride 105 mmol/L (98-107); Estimated GFR 21.53 (mL/min/1.73m2); Glucose 108 mg/dL (74-106); Potassium 4.3 mmol/L (3.5-5.1); Sodium 142 mmol/L (136-145)
--- NOTE | 2021-07-05 09:53 | PT.INDS ---
Date of service: 07/05/21 Time of Service: 09:53 PT Notes Visit Reasons: Left TKA Revision Physical Therapy Inpatient Discharge Summary Date: 07/05/2021 Dates of service: 07/04/2021 through 07/05/2021 This is a clinical summary of care provided for the duration of dates listed above. No charge was made in the completion of this documentation. Referring Doctor: KANCHAN Shi PT Orders: PT CONSULT: Status post Ortho surgery Precautions: Fall. Standard. WBAT on the left LE with AD. Patient Profile/Admitting Diagnosis: Lyubov is a 80-year-old female with left total knee arthroplasty prosthesis loosening status post left total knee arthroplasty revision on postoperative day 0. PMHX: Medical History Atrial fibrillation Chronic diastolic CHF (congestive heart failure) CKD (chronic kidney disease), stage III Depression Diverticulosis of colon DNI (do not intubate) DNR (do not resuscitate) Fibromyalgia Gastroesophageal reflux Goals of care, counseling/discussion History of tobacco use Hydronephrosis Hyperlipidemia Hypertension Intestinal adhesions Normocytic anemia NSTEMI (non-ST elevated myocardial infarction) Palliative care patient POLST (Physician Orders for Life-Sustaining Treatment) done 02/16/20 Pulmonary hypertension Respiratory infection Systemic lupus erythematosus Surgical History History of hysterectomy History of partial colectomy partial bowel resection-colectomy with colosotmy ad reversal, abdominal adhesions History of surgical removal of ganglion cyst both wrists History of tonsillectomy and adenoidectomy Hx of bilateral cataract extraction Hx of section Hx of knee surgery S/p bilateral carpal tunnel release Status post total left knee replacement (~1999) Social History/Home Situation: Lives with son and [id number] in a private home with 2 steps to enter with 1 rail. Independent with all mobility ADL performance without AD prior to surgery although she states that she had increasing difficulty with ambulation performance leading up to surgery. 8 falls in the past year, with patient having tendency to fall forward. Equipment Owned/DME: None Subjective: Agreeable to PT consult. Reports 3/10 pain in the left knee with weight bearing. Objective: General Observation: Supine in bed. NANDO wraps to left LE. Cryocuff on the right knee. IV in the right LE. Mental Status: Alert and oriented as to person, place, time, and purpose. Able to pay attention, focus, and respond appropriately. Pain: 3/10 in right knee ROM: Right Lower Extremity: Hip flexion WFL. Hip abduction WFL. Knee flexion 10 degrees to 100 degrees. Knee extension -10 degrees ankle dorsiflexion WFL. Ankle plantarflexion WFL. Left Lower Extremity: Hip flexion WFL. Hip abduction WFL. Knee flexion WFL. Ankle dorsiflexion WFL. Ankle plantarflexion WFL. Strength: Right Lower Extremity: Hip flexors 5/5. Hip abductors 5/5. Knee flexors 3-/5. Knee extensors 3-/5. Ankle dorsiflexors 5/5. Ankle plantarflexors 5/5. Left Lower Extremity: Hip flexors 5/5. Hip abductors 5/5. Knee flexors 4-/5. Knee extensors 4-/5. Ankle dorsiflexors 5/5. Ankle plantarflexors 5/5. Bed Mobility/Transfers: Supine to sit independent Sit to stand supervision Stand to sit supervision Bed to reclining chair supervision Gait: Instructed patient with level surface ambulation of about 100 feet +200 feet requiring supervision assist with step through gait pattern reporting 3/10 pain on the left knee. Kelin decreased. Step height on the left decreased. Step length on the left decreased. Denies headache, chest pain, and dizziness. Balance: Static Sitting: Normal Dynamic Sitting: Normal Static Standing: Fair Dynamic Standing: Fair Assessment: Lyubov is a 80-year-old female with left total knee arthroplasty prosthesis loosening status post left total knee arthroplasty revision on postoperative day 1. Requires supervision assist and the use of a walker to reduce fall risk for transfer and ambulation task performance. Patient presents with clinical signs and symptoms consistent with current/admitting diagnoses that have resulted to mobility limitations, gait instability, generalized weakness, and overall ADL decline as demonstrated by the following impairment level findings: 1. Decreased strength to left knee major muscle groups 2. Impaired sitting/standing balance 3. Impaired activity tolerance 4. Limitation of joint range of motion in left knee Impairments are contributing to the following functional limitations: 1. Decline in bed mobility skills 2. Decline in transfer skills 3. Difficulty with ambulation without assistive device 4. Increased completion time for mobility ADL performance 5. Increased risk for falls Goals: Goals X1 week 1. Supine-Sit independent MET 2. Sit-Supine independent MET 3. Sit-Stand independent NOT MET 4. Stand-Sit independent with FWW NOT MET 5. Bed-Chair independent with FWWNOT MET 6. Chair-Bed independent with FWW NOT MET 7. Independent gait on level surface with use of FWW for at least 100 feet without report of pain nor dyspnea NOT MET 8. Independent stair negotiation while holding onto 1 rail for at least 2 steps without report of pain nor dyspnea NOT MET 9. Independent with home exercise program NOT MET 10. Good static and dynamic standing balance/tolerance NOT MET DISCHARGE RECOMMENDATIONS: Home when medically cleared by her surgeon. Outpatient PT services to facilitate return to independent community ambulation without an assistive device. TREATMENT CODE/TIME: 67383 x 25 minutes, 28220 x 19 minutes beginning at 9:53 AM. Thank you for the opportunity to participate in the care of this patient. Milana Byrd PT, DPT, CLT [facility] [place], [place]
[2021-07-05] MEDS: Hydroxychloroquine 200 MG TAB 400 MG PO (09:57)
[2021-07-05] MEDS: hydrALAZINE 10 MG TAB PO (09:58)
[2021-07-05 12:24] VITALS: BP 130/70; PULSE 60; RESP 15; TEMP 36; O2SAT 98
[2021-07-05] MEDS: Ondansetron O.D.T. 4 MG TABEF PO (13:47)
== END 2021-07-05 14:17 | disposition home health service (06) | DRG 467 ==
LOC: PDS 09:47 → MS 16:36
PROVIDERS: Student in an Organized Health Care Education/Training Program; Admitting Provider Student in an Organized Health Care Education/Training Program; PCP Family Medicine; Visit Provider Student in an Organized Health Care Education/Training Program
PROC: (CPT 27487; principal; 2021-07-04 11:15)
DX: T84.84XA Pain due to internal orthopedic prosthetic devices, implants and grafts, initial encounter (principal); I50.32 Chronic diastolic (congestive) heart failure; J96.11 Chronic respiratory failure with hypoxia; I13.0 Hypertensive heart and chronic kidney disease with heart failure and stage 1 through stage 4 chronic kidney disease, or unspecified chronic kidney disease; T84.023A Instability of internal left knee prosthesis, initial encounter; Z96.652 Presence of left artificial knee joint; M89.552 Osteolysis, left thigh; T84.053A Periprosthetic osteolysis of internal prosthetic left knee joint, initial encounter; Y83.8 Other surgical procedures as the cause of abnormal reaction of the patient, or of later complication, without mention of misadventure at the time of the procedure; M32.9 Systemic lupus erythematosus, unspecified; I48.0 Paroxysmal atrial fibrillation; E78.5 Hyperlipidemia, unspecified; Z66 Do not resuscitate; I27.20 Pulmonary hypertension, unspecified; D64.9 Anemia, unspecified; N18.30 Chronic kidney disease, stage 3 unspecified; F32.9 Major depressive disorder, single episode, unspecified; M79.7 Fibromyalgia; K21.9 Gastro-esophageal reflux disease without esophagitis; Z87.891 Personal history of nicotine dependence; I25.2 Old myocardial infarction
CPT/HCPCS: 27487; 80048; 85027; 97110; 97162; 97530; 73560; 85610; J0690; J1100; J1650; J1885; J2001; J2250; J2370; J2405

== ENCOUNTER 2021-07-13 15:38 | Emergency (ER) | payer MEDICARE, OTHER, SELFPAY ==
[2021-07-13 15:40] VITALS: BP 145/53; PULSE 70; TEMP 36.7; O2SAT 96
--- NOTE | 2021-07-13 16:05 | W.ED.GENAD ---
Discharge Plan Disposition Patient Disposition: HOME Condition: Improving Discharge Details Clinical Impression: Anemia Primary Care Provider: Lyubov Tee V ED Provider: Josué Kidd Home Meds and New Rx's Prescriptions: New ferrous sulfate [iron] 325 mg (65 mg iron) tablet 325 mg PO BID Qty: 20 RF: 0 Continued hydroxychloroquine 200 mg tablet 400 mg PO DAILY RF: 0 metoprolol succinate 50 mg tablet extended release 24 hr 50 mg PO DAILY RF: 0 furosemide 20 mg tablet 80 mg PO DAILY AM RF: 0 pramipexole 0.25 mg tablet 0.5 mg PO QHS RF: 0 famotidine 20 mg tablet 20 mg PO .COMPLEX RF: 0 warfarin 5 mg tablet 5 mg PO DAILY Qty: 0 RF: 0 Savella 50 MG tablet 50 mg PO BID RF: 0 tramadol [Ultram] 50 mg tablet 50 mg PO HS RF: 0 atorvastatin [Lipitor] 20 mg Tablet 20 mg PO DAILY RF: 0 nitroglycerin 0.4 mg tablet, sublingual 0.4 mg SL Q5-15M PRN (Reason: chest pain) Qty: 20 RF: 0 hydralazine 10 mg Tablet 10 mg PO TID Qty: 0 RF: 0 amiodarone [Pacerone] 200 mg Tablet 200 mg PO DAILY Qty: 0 RF: 0 polyethylene glycol 3350 [Miralax] 17 gram Powder In Packet 17 g PO DAILY RF: 0 albuterol sulfate [ProAir HFA] 90 mcg/actuation Hfa Aerosol Inhaler 90 mcg INHALATION DAILY RF: 0 furosemide 40 mg Tablet 40 mg PO HS RF: 0 celecoxib [Celebrex] 200 mg capsule 200 mg PO BID Qty: 60 RF: 0 acetaminophen [Tylenol Extra Strength] 500 mg tablet 500 mg PO Q6H PRNQty: 90 RF: 0 pantoprazole [Protonix] 40 mg tablet,delayed release (DR/EC) 40 mg PO DAILY Qty: 30 RF: 0 gabapentin 300 mg capsule 300 mg PO QHS Qty: 14 RF: 0 oxycodone 5 mg tablet 5 mg PO Q4H PRNQty: 18 RF: 0 enoxaparin 100 mg/mL syringe 100 mg subcut Q12H Qty: 6 RF: 0 ondansetron 4 mg tablet,disintegrating 4 mg PO Q6H PRNQty: 12 RF: 0 Discharge Instructions Instructions: Anemia (ED) Additional Instructions: Hold your warfarin dose x2 doses. We will ask technical healthcare consultant to arrange home health rechecks of your INR. Please begin iron 2x daily. Follow-up with Dr. Gipson in clinic as discussed with him. Return if you develop abdominal pain, vomiting, or any other acute concerns. Medical Decision Making This is an 81-year-old female who presents status post left total knee revision on July 04. Knee was noted to be warm and swollen today, home INR was drawn which is elevated at 5.3 and patient was referred to the ED. She states she earlier had some right lower quadrant abdominal pain at the site of former colostomy. Patient arrives to the ER alert, interactive, no acute distress. Blood pressure 145/53, pulse of 70. Patient evaluated at the bedside by the Dr. Gipson without concern for postoperative complication. Patient underwent repeat blood work with a white count 8, hematocrit of 22 with hemoglobin 6.9. Platelets 326. INR 4.5. BUN 49, creatinine 2.6. CT images obtained without evidence for free fluid. There is note of known right lower quadrant anterior abdominal hernia there is surrounding inflammatory changes. Patient reexamined, no overlying tenderness. Case discussed with on-call surgery, Dr. Jim, who feels this likely represents inflammatory changes from subcutaneous Lovenox administered during recent hospitalization. Also discussed patient's anemia with Dr. Gipson. He favors a conservative approach with iron supplementation at home and recheck. Patient given 5 mg of vitamin K given concern for persistent bleeding in the knee and I will have her hold the warfarin for 2 days. We will ask care management to arrange outpatient lab draw to home health for recheck of INR. HPI General Mode of arrival: ambulatory. Date/Time Provider Initiated Documentation: 07/13/21 15:48. Limitations to Documentation: no limitations. Information obtained by: patient. History of Present Illness 81 year old F presents to the emergency department with the chief complaint of Elevated INR, mild left knee pain, described as moderate, Quality is described as dull, and is localized to the left and lower extremity. Patient reports no radiation. Patient started experiencing this hour(s) and it has been constant. No relieving factors improve symptom(s), No exacerbating factors reported . Patient notes denies headaches and syncope. Patient did receive the following treatments prior to arrival, none Related Data Home Medications Medication Instructions Recorded Confirmed Savella 50 mg PO BID 11/24/17 07/04/21 atorvastatin [Lipitor] 20 mg PO DAILY 05/17/19 07/13/21 polyethylene glycol 3350 [Miralax] 17 g PO DAILY 08/26/19 07/04/21 amiodarone [Pacerone] 200 mg PO DAILY #0 tab 11/14/19 07/04/21 hydralazine 10 mg PO TID #0 tab 11/14/19 07/13/21 nitroglycerin 0.4 mg SL Q5-15M PRN #20 tab 11/14/19 07/03/21 albuterol sulfate [ProAir HFA] 90 mcg INHALATION DAILY 02/13/20 07/03/21 warfarin 5 mg tablet 5 mg PO DAILY #0 tab 07/20/20 07/13/21 hydroxychloroquine 200 mg tablet 400 mg PO DAILY tab 05/31/21 07/13/21 metoprolol succinate 50 mg 50 mg PO DAILY 05/31/21 07/13/21 tablet,extended release 24 hr famotidine 20 mg tablet 20 mg PO .COMPLEX 06/29/21 07/13/21 furosemide 20 mg tablet 80 mg PO DAILY AM 06/29/21 07/13/21 pramipexole 0.25 mg tablet 0.5 mg PO QHS tab 06/29/21 07/13/21 tramadol 50 mg tablet 50 mg PO HS tab 06/29/21 07/13/21 acetaminophen [Tylenol Extra 500 mg PO Q6H PRN #90 tab 07/04/21 Strength] celecoxib [Celebrex] 200 mg PO BID #60 cap 07/04/21 07/13/21 furosemide 40 mg PO HS 07/04/21 07/04/21 gabapentin 300 mg PO QHS #14 cap 07/04/21 07/13/21 oxycodone 5 mg PO Q4H PRN #18 tab 07/04/21 pantoprazole [Protonix] 40 mg PO DAILY #30 tab 07/04/21 07/13/21 enoxaparin 100 mg SUBCUT Q12H #6 syrg 07/05/21 07/13/21 ondansetron 4 mg PO Q6H PRN #12 tab 09/16/21 ferrous sulfate [iron] 325 mg PO BID #20 tab 07/13/21 Previous Rx's Medication Instructions Recorded amiodarone [Pacerone] 200 mg PO DAILY #0 tab 11/14/19 hydralazine 10 mg PO TID #0 tab 11/14/19 nitroglycerin 0.4 mg SL Q5-15M PRN #20 tab 11/14/19 warfarin 5 mg tablet 5 mg PO DAILY #0 tab 07/20/20 acetaminophen [Tylenol Extra 500 mg PO Q6H PRN #90 tab 07/04/21 Strength] celecoxib [Celebrex] 200 mg PO BID #60 cap 07/04/21 gabapentin 300 mg PO QHS #14 cap 07/04/21 oxycodone 5 mg PO Q4H PRN #18 tab 07/04/21 pantoprazole [Protonix] 40 mg PO DAILY #30 tab 07/04/21 enoxaparin 100 mg SUBCUT Q12H #6 syrg 07/05/21 ondansetron 4 mg PO Q6H PRN #12 tab 07/05/21 ferrous sulfate [iron] 325 mg PO BID #20 tab 07/13/21 Allergies Allergy/AdvReac Type Severity Reaction Status Date / Time Sulfa (Sulfonamide Allergy Verified 07/13/21 15:58 Antibiotics) cat scan dye AdvReac Uncoded 07/13/21 15:58 General Stated Complaint: GenMedical COURT: 2 Review of Systems Narrative: inr 5.3 today no headache, back or neck pain. Mild right lower quadrant abdominal pain. Mild constipation. No blood in the stool. No fever PFSH Medical History Atrial fibrillation Chronic diastolic CHF (congestive heart failure) CKD (chronic kidney disease), stage III Depression Diverticulosis of colon DNI (do not intubate) DNR (do not resuscitate) Fibromyalgia Gastroesophageal reflux Goals of care, counseling/discussion History of tobacco use Hydronephrosis Hyperlipidemia Hypertension Intestinal adhesions Normocytic anemia NSTEMI (non-ST elevated myocardial infarction) pt. 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 POLST (Physician Orders for Life-Sustaining Treatment) done 02/16/20 Pulmonary hypertension Respiratory infection Systemic lupus erythematosus [place] [facility] [place] History History of hysterectomy History of partial colectomy partial bowel resection-colectomy with colosotmy ad reversal, abdominal adhesions History of surgical removal of ganglion cyst both wrists History of tonsillectomy and adenoidectomy History of total right knee replacement (TKR) Hx of bilateral cataract extraction Hx of section Hx of knee surgery S/p bilateral carpal tunnel release Status post total left knee replacement (~1999) Family History Father Heart disease Diabetes Mother Heart disease Hypertension Son Diabetes Granddaughter No problems noted. Granddaughter No problems noted. Daughter Hemochromatosis Social History Smoking/Tobacco Use Status: Former Tobacco Use Quit Date: 10/20/89 Smoking risk assessment performed?: Yes Alcohol Intake: current Alcohol Intake frequency: holidays/special occasions only Drug use: Never Substance use type: does not use Caregiver/Support person: No Household members: none Housing: house Communication Needs: Hard of Hearing and Corrective Lenses Education Level: high school Do you need help understanding health information?: Always How often do you talk on the phone with friends or family?: three or more times per week How often do you get together with friends or relatives?: three or more times per week Panel score (0-1 are the most socially isolated patients): 1 What type of physical activity do you participate in: walking and sedentary lifestyle Duration: < 15 minutes/day Special marci needs: No Seatbelt use: always Do you feel safe at home: Yes Do you feel safe in your relationship?: Yes Exam Narrative Exam Narrative: GEN: awake, alert, oriented 3. Pleasant, well groomed, interactive. HEAD: Normocephalic, atraumatic ENT: Mucous membranes moist, oropharynx unremarkable, External ear exam unremarkable EYES: PERRL, EOMI NECK: Full ROM, no REFUGIO, no menigismus CHEST/RESP: Nontender, clear to auscultation bilateral, no wheeze/rhonchi/rales CARDIOVASCULAR: RRR, no murmur, rub froylan. 2+ Rad pulse bilateral ABDOMEN: Soft, discrete tenderness left lower quadrant, no mass. +Bowel sounds EXT: Full ROM,, left knee vertical incision with scant amount of blood expressed from the middle. Left knee edematous Neuro: Grossly normal neurologic exam, conversant, interactive. Psych: Speech fluent, thoughts congruent, affect normal Course Vital Signs Vital signs: Vital Signs Temperature 36.7 C 07/13/21 15:40 Pulse 70 07/13/21 15:40 Blood Pressure 145/53 H 07/13/21 15:40 Pulse Oximetry 96 07/13/21 15:40 Temperature 36.7 C 07/13/21 15:40 Temperature Source Tympanic 07/13/21 15:40 Pulse 70 07/13/21 15:40 Respiratory Effort 07/13/21 15:54 Blood Pressure 145/53 H 07/13/21 15:40 Blood Pressure Position Supine 07/13/21 15:40 Pulse Oximetry 96 07/13/21 15:40 Oxygen Delivery Method Room Air 07/13/21 15:40 Oxygen Flow Rate 0 07/13/21 15:40 Pain Level 6 07/13/21 15:40
--- NOTE | 2021-07-13 16:20 | W.ORTHOCONSU ---
Date of service: 07/13/21 Time of Service: 16:20 History of Present Illness History of Present Illness Chief Complaint: Left Knee Swelling and Bleeding Narrative: Chandni is an 81-year-old who is approximate 9 days status post revision left knee arthroplasty. She went home on postop day #1. Unfortunately, she did have a fall at home on that night but since then has not. She did have some bruising about the left knee after this happened but no significant other issues identified. She has been able to work with physical therapy. She has had some swelling about the left leg and there is concerned about continued bruising and bleeding about the left knee as well as some new bruising seen around the abdomen. Her home health nurse juan INR today which was reported at 5.3. She called her primary care provider who recommended she go to the emergency department. She was brought in by EMS. She denies significant pain left knee beyond what it has been. She does have swelling. She has had a slight bleeding from the knee enough to fill up the dressing throughout the day. She has been on the bike and has been ambulating without any significant increase in pain. No shortness of breath. No numbness or tingling. No giving way with the knee. No more recent falls except for the first night home. Consults Consult date: 07/13/21 Requesting physician: Josué Kidd Consult Reason Pain after revision left knee replacement Assessment and Plan Assessment and plan (1) Painful total knee replacement, left: Status: Acute Assessment and plan: Chandni is an 81-year-old who is status post revision left knee replacement. Unfortunately, her INR level is significantly high. She has had some bleeding and bruising which is to be expected given the level that it sat. However, I do not see any significant issues with the left knee. She did have a fall early on in the recovery but is otherwise progressing appropriately for revision knee replacement. I recommend that she keep the current pressure dressing, which I applied, on for 2 full days. After that she may remove it and she may start shower regularly. She may apply Mepilex dressing back on top of the wound after this. She may use the bike and ambulate as tolerated. She has an increase in bleeding or drainage she is to let me know. However, I see no signs of complications and no concerning features. Qualifiers: Encounter type: sequela Qualified Code(s): T84.84XS - Pain due to internal orthopedic prosthetic devices, implants and grafts, sequela; Z96.652 - Presence of left artificial knee joint Review of Systems All systems reviewed & are unremarkable except as noted in HPI and below PFSH Medical History Atrial fibrillation Chronic diastolic CHF (congestive heart failure) CKD (chronic kidney disease), stage III Depression Diverticulosis of colon DNI (do not intubate) DNR (do not resuscitate) Fibromyalgia Gastroesophageal reflux Goals of care, counseling/discussion History of tobacco use Hydronephrosis Hyperlipidemia Hypertension Intestinal adhesions Normocytic anemia NSTEMI (non-ST elevated myocardial infarction) pt. 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 POLST (Physician Orders for Life-Sustaining Treatment) done 02/16/20 Pulmonary hypertension Respiratory infection Systemic lupus erythematosus [place] with / Ram[place] [facility] [place] History History of hysterectomy History of partial colectomy partial bowel resection-colectomy with colosotmy ad reversal, abdominal adhesions History of surgical removal of ganglion cyst both wrists History of tonsillectomy and adenoidectomy History of total right knee replacement (TKR) Hx of bilateral cataract extraction Hx of section Hx of knee surgery S/p bilateral carpal tunnel release Status post total left knee replacement (~1999) Family History Father Heart disease Diabetes Mother Heart disease Hypertension Son Diabetes Granddaughter No problems noted. Granddaughter No problems noted. Daughter Hemochromatosis Social History Smoking/Tobacco Use Status: Former Tobacco Use Quit Date: 10/20/89 Smoking risk assessment performed?: Yes Alcohol Intake: current Alcohol Intake frequency: holidays/special occasions only Drug use: Never Substance use type: does not use Caregiver/Support person: No Household members: none Housing: house Communication Needs: Hard of Hearing and Corrective Lenses Education Level: high school Do you need help understanding health information?: Always How often do you talk on the phone with friends or family?: three or more times per week How often do you get together with friends or relatives?: three or more times per week Panel score (0-1 are the most socially isolated patients): 1 What type of physical activity do you participate in: walking and sedentary lifestyle Duration: < 15 minutes/day Special marci needs: No Seatbelt use: always Do you feel safe at home: Yes Do you feel safe in your relationship?: Yes Exam Narrative Exam Narrative: Sitting in the hospital stretcher. Evaluation left knee shows some global swelling from the thigh down towards the foot. There is some mild and resolving ecchymosis seen around the posterior medial posterior lateral aspect of the leg in the knee. A Mepilex dressings in place with some saturation over the very distal aspect. She is able straight leg raise with minimal lag and holding it some resistance. The knee is stable to varus and valgus stress. The dressing is removed and there are 2 areas where there is some mild diastases of the wound. There is no active exsanguination but there is a very mild ooze from 1 of these areas. I am unable to express any further bleeding. There is no significant area of fluctuance. The wound was then dressed with a new Xeroform with gauze followed by Mepilex and an Beni wrap. Results Last Vital Signs Temp 36.7 C 07/13/21 15:40 Pulse 70 07/13/21 15:40 BP 145/53 H 07/13/21 15:40 Pulse Ox 96 07/13/21 15:40 Labs Result diagrams: 07/13/21 15:44 07/13/21 15:44
--- NOTE | 2021-07-13 16:30 | DI.CT_ITS ---
Exam(s) CT CHEST/ABD/PEL WO EXAM: CT CHEST/ABD/PEL WO CLINICAL HISTORY: anticoaguated, elev inr, lo hgb, RLQ pain. TECHNIQUE: Imaging Protocol: Axial computed tomography images with coronal and sagittal reformatted images were created and reviewed CONTRAST MATERIAL: Intravenous: none Oral: None COMPARISON: CT CT ABDOMEN PELVIS WO from 01/02/2021 FINDINGS: CHEST: LUNGS: No infiltrates nor pleural effusions. No ominous pulmonary nodules. No focal findings in the trachea and mainstem bronchi.. MEDIASTINUM: No obvious hilar nor mediastinal adenopathy. Visualized thyroid unremarkable. CARDIAC: Heart size upper normal. No pericardial effusion.Caliber of the thoracic aorta is within no rmal limits. OSSEOUS: No significant osseous lesions.. ABDOMEN: There is no ascites. LIVER: There are no obvious focal hepatic lesions evident of this noninfused study. GALLBLADDER/BILIARY: No obvious gallbladder pathology. CBD is not dilated. PANCREAS: No evidence of obvious pancreatic mass nor dilatation of the pancreatic duct. SPLEEN: Spleen is not enlarged. No obvious intrasplenic lesions. ADRENALS: There are no significant adrenal masses. KIDNEYS: Exophytic hemorrhagic cyst off the posterior aspect superior pole left kidney again noted. Right kidney cyst measuring 1.2 x 1.2 cm in the superior pole. No hydronephrosis.. ABDOMINAL AORTA: Abdominal aorta is not enlarged. LYMPH NODES: There is no retroperitoneal nor para-aortic adenopathy. ABDOMINAL WALL/GI: There is anterior abdominal wall right of center hernia which contains bowel loops , similar to previous. This appears somewhat incarcerated although there does not appear to be an ob vious small bowel obstruction. No distinct transition point. PELVIS: LYMPH NODES: There is no intrapelvic nor inguinal adenopathy. GI: No evidence of appendicitis.Partial sigmoid resection with no evidence of abnormality at this lev el. Also partial right colectomy URINARY BLADDER: No calculi nor obvious masses evident REPRODUCTIVE: Uterus is again noted to be surgically absent.. There are no abnormal adnexal masses n or free fluid in the pelvis. OSSEOUS: No significant osseous lesions. IMPRESSION: 1. No significant intrathoracic findings. 2. Right-sided anterior abdominal wall hernia which is probably at this site of prior ostomy are port site in this patient who has had prior surgeries including partial colon resection and partial sigmo id resection. This right of center ventral hernia contains a bowel loop which appears to be incarcer ated. Surgical consultation is recommended. 3. There is a hyperdense nodule off the posterior left kidney which is probably a hemorrhagic cyst gi klaus its uniform appearance. This study was 1st read by [facility]. RADIATION DOSE DELIVERED: 1,400.08mGy.cm Total DLP DATA REPOSITORY: All CT scans at this facility are submitted to the National Radiology Data Registry (NRDR) Dose Index Registry (DIR) with the [employer] (ACR). RADIATION OPTIMIZATION: All CT scans at this facility use at least one of these dose optimization te chniques: automated exposure control; mA and/or kV adjustment per patient size (includes targeted exa ms where dose is matched to clinical indication); or iterative reconstruction.
[2021-07-13 16:31] LABS: Abs Immature Grans 0.14 10^3/uL (0.0-0.06); Absolute Eosinophil Count 0.12 10^3/uL (0.0-0.7); Absolute Lymphocyte Count 1.02 10^3/uL (1.2-3.4); Absolute Monocyte Count 0.98 10^3/uL (0.1-0.8); Absolute Neutrophil Count 6.22 10^3/uL (1.2-6.7); Eosinophils % 1.4; HCT 22.3 % (36.0-46.0); Immature Grans % 1.7; MCH 31.8 pg (27.0-33.0); MCHC 30.9 % (32.0-36.0); MCV 102.8 fL (80-95); MPV 9.5 fL (8.0-11.0); Monocytes % 11.6; Neutrophils % 73.3; Nucleated RBC 1 %; Platelet Count 326 10^3/uL (130-400); RBC 2.17 10^6/uL (3.93-5.22); RDW 15.1 % (11.7-14.6); RDW-SD 55.7 fL; WBC 8.48 10^3/uL (4.4-10.8)
[2021-07-13 16:34] LABS: HGB 6.9 g/dL (11.2-15.7)
[2021-07-13 16:42] LABS: ALT 24 U/L (14-59); AST 26 U/L (15-37); Albumin 2.8 g/dL (3.4-5.0); Alkaline Phosphatase 80 U/L (46-116); Anion Gap 6.1 mmol/L (3-11); BUN 49 mg/dL (7-18); Bilirubin, Total 0.5 mg/dL (0.2-1.0); CO2 28.9 mmol/L (21.0-32.0); CREATININE 2.6 mg/dL (0.55-1.02); Calcium 8.3 mg/dL (8.5-10.1); Chloride 107 mmol/L (98-107); Estimated GFR 17.71 (mL/min/1.73m2); Glucose 157 mg/dL (74-106); Potassium 4.7 mmol/L (3.5-5.1); Sodium 142 mmol/L (136-145); Total Protein 6.2 g/dL (6.4-8.2)
[2021-07-13 16:53] LABS: Bilirubin Negative (Negative); Blood Negative (Negative); Clarity Clear (Clear); Glucose Negative (Negative); Ketones Negative (Negative); Leukocyte Esterase Negative (Negative); Nitrite Negative (Negative); Specific Gravity 1.015 (1.005-1.025); Urobilinogen 0.2 EU/dL (Up TO 0.2)
[2021-07-13 16:57] LABS: Prothrombin Time 43.4 sec (9.3-11.0)
[2021-07-13 17:01] LABS: INR 4.5 (0.9-1.1)
--- NOTE | 2021-07-13 17:30 | DI.VRAD_ITS ---
PROCEDURE INFORMATION: Exam: CT Chest Without Contrast; Diagnostic Exam date and time: 07/13/2021 4:42 PM Age: 81 years old Clinical indication: Abdominal pain; Localized; Right lower quadrant (rlq); Other: Anticoagulated, rlq pain; Patient HX: Anticoaguated, elev inr, lo hgb, rlq pain TECHNIQUE: Imaging protocol: Diagnostic computed tomography of the chest without contrast. COMPARISON: CR XR PORTABLE CHEST AP 02/13/2020 7:00 AM FINDINGS: Lungs: Unremarkable. No consolidation. No masses. Pleural spaces: Unremarkable. No pneumothorax. No pleural effusion. Heart: Unremarkable. No cardiomegaly. No pericardial effusion. Aorta: Unremarkable. No aortic aneurysm. Lymph nodes: Unremarkable. No enlarged lymph nodes. Bones/joints: Unremarkable. No acute fracture. Soft tissues: Unremarkable. IMPRESSION: No acute findings. PROCEDURE INFORMATION: Exam: CT Abdomen And Pelvis Without Contrast Exam date and time: 07/13/2021 4:42 PM Age: 81 years old Clinical indication: Abdominal pain; Localized; Right lower quadrant (rlq); Other: Anticoagulated, rlq pain; Patient HX: Anticoaguated, elev inr, lo hgb, rlq pain TECHNIQUE: Imaging protocol: Computed tomography of the abdomen and pelvis without contrast. COMPARISON: CR XR PORTABLE CHEST AP 02/13/2020 7:00 AM FINDINGS: Liver: Normal. No mass. Gallbladder and bile ducts: Normal. No calcified stones. No ductal dilation. Pancreas: Normal. No ductal dilation. Spleen: Normal. No splenomegaly. Adrenal glands: Normal. No mass. Kidneys and ureters: 14 mm hyperdense nodule posterior left kidney 45 Hounsfield units.. 14 mm cystic structure posterior left kidney. . No follow-up imaging recommended . Stomach and bowel: Ventral hernia contains a loop of bowel. Series 3, image 92. This may be at the location of prior ostomy. There are surrounding inflammatory changes. It may be incarcerated. . Sutures in the distal rectosigmoid Appendix: Normal appendix Intraperitoneal space: Unremarkable. No free air. No significant fluid collection. Vasculature: Unremarkable. No abdominal aortic aneurysm. Lymph nodes: Unremarkable. No enlarged lymph nodes. Urinary bladder: Unremarkable as visualized. Reproductive: Surgical resection of the uterus Bones/joints: Unremarkable. No acute fracture. Soft tissues: Phlegm a gerardo changes in the fat anterior to the hernia IMPRESSION: 1. Ventral hernia contains a loop of bowel. Series 3, image 92. This may be at the location of prior ostomy. There are surrounding inflammatory changes. It may be incarcerated. 2. 14 mm hyperdense nodule posterior left kidney 45 Hounsfield units.. Dictated and Authenticated by: John Paul Davis MD. Ordering:FRANKY Moses MD
--- NOTE | 2021-07-13 18:33 | NUR.NOTE ---
Nursing Note: REFEERAL SENT TO [facility] TO GET INR FOR PATIENT WITHIN 24 HOURS AND AGIAN [facility]IA HOME [facility] WITHIN 48 HOURS FOR ANEMIA AND SUPRA THERAPUTIC INR 07/13/21
[2021-07-13] MEDS: Phytonadione 5 MG TABLET 2.5 MG PO (18:34)
== END 2021-07-13 18:45 | disposition home or self-care (01) ==
PROVIDERS: Emergency Provider Emergency Medicine; PCP Family Medicine
DX: D64.9 Anemia, unspecified (principal); R10.31 Right lower quadrant pain; M25.562 Pain in left knee; Z96.652 Presence of left artificial knee joint; R79.1 Abnormal coagulation profile
CPT/HCPCS: 36415; 71250; 80053; 86850; 86900; 86901; 99284; 74176; 81003; 85025; 85610

== ENCOUNTER 2021-07-16 15:22 | Inpatient (IN) | payer MEDICARE, OTHER, SELFPAY ==
[2021-07-16] VITALS (22 sets, daily range): BP systolic 115–155; BP diastolic 50–88; PULSE 49–74; RESP 14–18; TEMP 36.5–36.8; O2SAT 78–99
--- NOTE | 2021-07-16 15:45 | RT.EKG_ITS ---
APPROVED REPORT Exam: Resting ECG Reason for Exam: SOB Patient Location: E HR:51 bpm ECG Measurements Heart Rate 51 AXIS IN 247 P 39 QRSd 119 QRS -11 QT 503 T 28 QTc 462 Conclusion Sinus bradycardia...rate< 60 Prolonged IN interval...IN >220, V-rate 50- 90 Incomplete left bundle branch block...QRSd>110mS, terminal axis(-90,-1) Low voltage, precordial leads...precordial leads <1.0mV
--- NOTE | 2021-07-16 15:49 | ED.GENADUL_ITS ---
Discharge Plan Discharge Details Chief Complaint: GenMedical Primary Care Provider: Lyubov Tee V ED Provider: Kerline Garcia Home Meds and New Rx's Prescriptions: No Action hydroxychloroquine 200 mg tablet 200 mg PO DAILY RF: 0 metoprolol succinate 50 mg tablet extended release 24 hr 50 mg PO DAILY RF: 0 furosemide 20 mg tablet 80 mg PO DAILY AM RF: 0 pramipexole 0.25 mg tablet 0.125 - 0.5 mg PO QHS RF: 0 famotidine 20 mg tablet 20 mg PO .COMPLEX RF: 0 warfarin 5 mg tablet 5 mg PO DAILY Qty: 0 RF: 0 Savella 50 MG tablet 50 mg PO BID RF: 0 tramadol [Ultram] 50 mg tablet 50 mg PO HS PRNRF: 0 atorvastatin [Lipitor] 20 mg Tablet 20 mg PO HS RF: 0 nitroglycerin 0.4 mg tablet, sublingual 0.4 mg SL Q5-15M PRN (Reason: chest pain) Qty: 20 RF: 0 amiodarone [Pacerone] 200 mg Tablet 200 mg PO DAILY Qty: 0 RF: 0 polyethylene glycol 3350 [Miralax] 17 gram Powder In Packet 17 g PO DAILY RF: 0 albuterol sulfate [ProAir HFA] 90 mcg/actuation Hfa Aerosol Inhaler 90 mcg INHALATION DAILY RF: 0 furosemide 40 mg Tablet 40 - 80 mg PO DIRECTED RF: 0 celecoxib [Celebrex] 200 mg capsule 200 mg PO BID Qty: 60 RF: 0 acetaminophen [Tylenol Extra Strength] 500 mg tablet 500 mg PO Q6H PRNQty: 90 RF: 0 pantoprazole [Protonix] 40 mg tablet,delayed release (DR/EC) 40 mg PO DAILY Qty: 30 RF: 0 gabapentin 300 mg capsule 300 mg PO QHS Qty: 14 RF: 0 oxycodone 5 mg tablet 5 mg PO Q4H PRNQty: 18 RF: 0 enoxaparin 100 mg/mL syringe 100 mg subcut Q12H Qty: 6 RF: 0 ondansetron 4 mg tablet,disintegrating 4 mg PO Q6H PRNQty: 12 RF: 0 docusate calcium 240 mg Capsule 240 mg PO BID RF: 0 cephalexin 500 mg capsule 500 mg PO TID PRNRF: 0 meclizine 12.5 mg tablet 12.5 mg PO BID PRNRF: 0 hydralazine 10 mg tablet 10 mg PO BID RF: 0 albuterol sulfate 2.5 mg /3 mL (0.083 %) Solution For Nebulization 2.5 mg inhalation Q4H PRNRF: 0 ferrous sulfate [iron] 325 mg (65 mg iron) tablet 324 mg PO DAILY RF: 0 Medical Decision Making Patient is a pleasant 81-year-old female presenting today with chief complaint of lower abdominal pain. Patient reports that she has had this pain for of her mind but that it increases last night. States that last night she had approximately 10 watery bowel movements which were black. Patient is anticoagulated. She also began recent increased iron supplementation. She denies any chest pain. Patient is chronically short of breath. Uses oxygen at home. Has had increased lower extremity edema today. She denies any fevers or chills. No change in urinary habit. Patient was seen here 3 days ago with a multitude of symptoms. At that time, a CT of the patient's chest, abdomen and pelvis was obtained. CT at that time showed a ventral hernia containing bowel loops which appear to be incarcerated and surgical consultation recommended. Surgery was consulted and they believe this is associated with inflammation from the subcu Lovenox recent hospitalization. Hemorrhagic cyst is also noted in the left kidney. Patient did not have anyCVA pain.. The time patient was evaluated here, she was noted to be anemic with a hemoglobin 0.9. However, patient did present 2 weeks status post left total knee replacement. The anemia was attributed to the surgery. Patient was noted to have an INR of 4.5. Patient was given 5 mg of vitamin K as well as hold her warfarin x2 days. On exam, patient appears nontoxic. Vital signs are stable. Her pulse is low at 55 the patient is stable off. Her lungs are clear. However, she does have notable lower extremity edema which she states has increased recently. States her oxygen demand last time slightly higher than typical, will obtain a BNP to evaluate further. Patient does have a history of CHF. Exam the abdomen is concerning for tenderness over the right lower quadrant near previous surgical incision. Secondary to bed availability, unable to have the patient supine for this evaluation and palpation of the hernia was difficult secondary to body habitus. Will obtain repeat labs including CBC for further evaluation of the anemia, INR, BNP, CMP. As her pain has been increasing, will also consult with general surgery regarding the questionable incarcerated hernia. Consulted with Dr. Peace. As her pain has been increasing, she recommends repeat imaing. She reviewed the previous CT, feels that the inflammation is chronic scaring and likely not indicitive of incarceration. Dr. Peace evaluated the patient. Was able to manipulate hernia and reduce, immediate resolution of pain. Given the patient recent significant anemia and elevated INR, will repeat lab. She is also had increasing bilateral lower extremity edema with history of CHF. She has been taking 80 mg Lasix in the morning and 40 in the evening. States that her shortness of breath has been progressively increasing. EKG was obtained and reviewed by Dr. East. Patient had a first-degree block with a LA interval of 247. Patient has had prolonged LA historically but this did increase compared to baseline.Patient is b-blocked, on amiodarone. Labs reviewed, no leukocytosis. Hemoglobin is up slightly to 7.1 from 0.93 days ago. Her INR is now 1.9, down from 4.5. Her potassium is slightly elevated at 5.2. Creatinine is elevated at 3.2, baseline is typically around 2.5. BNP is elevated at 6500. I discussed these findings with the patient. Rectal exam heme negative. Consulted with Dr. Melo regarding admission for RHONDA, CHF exacerbation, and medication adjustment if needed. He will evaluate the patient. Patient agreeable to admission. HPI General Mode of arrival: ambulatory (with walker) . Date/Time Provider Initiated Documentation: 07/16/21 15:49 . Limitations to Documentation: no limitations . Information obtained by: patient, RN notes reviewed and old records reviewed . History of Present Illness 81 year old F presents to the emergency department with the chief complaint of RLQ pain, described as moderate and similar to prior episodes, with intensity rated at 5. Quality is described as aching, and is localized to the abdomen. Patient reports no radiation. Patient started experiencing this month(s) (increased over recent days) and it has been constant. No relieving factors improve symptom(s), No exacerbating factors reported . Patient notes loss of appetite, nausea/vomiting (nausea, no vomiting) and shortness of breath (acute on chronic); denies cough, diaphoresis, fever/chills, rash and weakness. Patient did receive the following treatments prior to arrival, none Related Data Home Medications Medication Instructions Recorded Confirmed Savella 50 mg PO BID 11/24/17 07/16/21 atorvastatin [Lipitor] 20 mg PO HS 05/17/19 07/16/21 polyethylene glycol 3350 [Miralax] 17 g PO DAILY 08/26/19 07/16/21 amiodarone [Pacerone] 200 mg PO DAILY #0 tab 11/14/19 07/16/21 nitroglycerin 0.4 mg SL Q5-15M PRN #20 tab 11/14/19 07/16/21 albuterol sulfate [ProAir HFA] 90 mcg INHALATION DAILY 02/13/20 07/16/21 warfarin 5 mg tablet 5 mg PO DAILY #0 tab 07/20/20 07/16/21 hydroxychloroquine 200 mg tablet 200 mg PO DAILY tab 05/31/21 07/16/21 metoprolol succinate 50 mg 50 mg PO DAILY 05/31/21 07/16/21 tablet,extended release 24 hr famotidine 20 mg tablet 20 mg PO .COMPLEX 06/29/21 07/16/21 furosemide 20 mg tablet 80 mg PO DAILY AM 06/29/21 07/13/21 pramipexole 0.25 mg tablet 0.125 - 0.5 mg PO QHS tab 06/29/21 07/16/21 tramadol 50 mg tablet 50 mg PO HS PRN tab 06/29/21 07/16/21 acetaminophen [Tylenol Extra 500 mg PO Q6H PRN #90 tab 07/04/21 Strength] celecoxib [Celebrex] 200 mg PO BID #60 cap 07/04/21 07/13/21 furosemide 40 - 80 mg PO DIRECTED 07/04/21 07/16/21 gabapentin 300 mg PO QHS #14 cap 07/04/21 07/13/21 oxycodone 5 mg PO Q4H PRN #18 tab 07/04/21 pantoprazole [Protonix] 40 mg PO DAILY #30 tab 07/04/21 07/13/21 enoxaparin 100 mg SUBCUT Q12H #6 syrg 07/05/21 07/13/21 ondansetron 4 mg PO Q6H PRN #12 tab 07/05/21 albuterol sulfate 2.5 mg INHALATION Q4H PRN 07/16/21 07/16/21 cephalexin 500 mg PO TID PRN 07/16/21 07/16/21 docusate calcium 240 mg PO BID 07/16/21 07/16/21 ferrous sulfate [iron] 324 mg PO DAILY 07/16/21 07/16/21 hydralazine 10 mg PO BID 07/16/21 07/16/21 meclizine 12.5 mg PO BID PRN 07/16/21 07/16/21 Previous Rx's Medication Instructions Recorded amiodarone [Pacerone] 200 mg PO DAILY #0 tab 11/14/19 nitroglycerin 0.4 mg SL Q5-15M PRN #20 tab 11/14/19 warfarin 5 mg tablet 5 mg PO DAILY #0 tab 07/20/20 acetaminophen [Tylenol Extra 500 mg PO Q6H PRN #90 tab 07/04/21 Strength] celecoxib [Celebrex] 200 mg PO BID #60 cap 07/04/21 gabapentin 300 mg PO QHS #14 cap 07/04/21 oxycodone 5 mg PO Q4H PRN #18 tab 07/04/21 pantoprazole [Protonix] 40 mg PO DAILY #30 tab 07/04/21 enoxaparin 100 mg SUBCUT Q12H #6 syrg 07/05/21 ondansetron 4 mg PO Q6H PRN #12 tab 07/05/21 Allergies Allergy/AdvReac Type Severity Reaction Status Date / Time Sulfa (Sulfonamide Allergy Verified 07/16/21 15:40 Antibiotics) cat scan dye AdvReac Uncoded 07/16/21 15:40 General Stated Complaint: GenMedical COURT: 3 Review of Systems Constitutional Constitutional: Reports as per HPI, Denies chills, Denies fatigue, Denies fever(s) and Denies headache(s) ENT Ears, Nose, Mouth, and Throat: Denies headache(s) Cardiovascular Cardiovascular: Reports as per HPI, Denies chest pain, Denies chest pain with activity, Denies syncope, Denies radiating jaw, neck or arm pain, Reports dyspnea and Reports dyspnea on exertion (chronic) Respiratory Respiratory: Reports as per HPI, Denies cough, Reports dyspnea and Reports dyspnea on exertion (chronic) Gastrointestinal Gastrointestinal: Reports as per HPI Musculoskeletal Musculoskeletal: Reports as per HPI and Denies back pain Integumentary/Breasts Skin/Breast: Reports as per HPI and Denies rash Neurologic Neurologic: Reports as per HPI, Denies syncope and Denies headache(s) Endocrine Endocrine: Denies fatigue [facility] Medical History Atrial fibrillation Chronic diastolic CHF (congestive heart failure) CKD (chronic kidney disease), stage III Depression Diverticulosis of colon DNI (do not intubate) DNR (do not resuscitate) Fibromyalgia Gastroesophageal reflux Goals of care, counseling/discussion History of tobacco use Hydronephrosis Hyperlipidemia Hypertension Intestinal adhesions Normocytic anemia NSTEMI (non-ST elevated myocardial infarction) pt. 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 POLST (Physician Orders for Life-Sustaining Treatment) done 02/16/20 Pulmonary hypertension Respiratory infection Systemic lupus erythematosus F/U with / Ramona @ [facility] Surgical History History of hysterectomy History of partial colectomy partial bowel resection-colectomy with colosotmy ad reversal, abdominal adhesions History of surgical removal of ganglion cyst both wrists History of tonsillectomy and adenoidectomy History of total right knee replacement (TKR) Hx of bilateral cataract extraction Hx of section Hx of knee surgery S/p bilateral carpal tunnel release Status post total left knee replacement (~1999) Family History Father Heart disease Diabetes Mother Heart disease Hypertension Son Diabetes Granddaughter No problems noted. Granddaughter No problems noted. Daughter Hemochromatosis Social History Smoking/Tobacco Use Status: Former Tobacco Use Quit Date: 10/20/89 Smoking risk assessment performed?: Yes Alcohol Intake: current Alcohol Intake frequency: holidays/special occasions only Drug use: Never Substance use type: does not use Caregiver/Support person: No Household members: none Housing: house Communication Needs: Hard of Hearing and Corrective Lenses Education Level: high school Do you need help understanding health information?: Always How often do you talk on the phone with friends or family?: three or more times per week How often do you get together with friends or relatives?: three or more times per week Panel score (0-1 are the most socially isolated patients): 1 What type of physical activity do you participate in: walking and sedentary lifestyle Duration: < 15 minutes/day Special marci needs: No Seatbelt use: always Do you feel safe at home: Yes Do you feel safe in your relationship?: Yes Exam Const General: cooperative, healthy appearing, comfortable, no acute distress and well developed Nutritional Appearance: well nourished and overweight Orientation: alert and awake Resp Effort & Inspection: normal respiratory effort, able to speak in complete sentences and no respiratory distress Auscultation: clear to auscultation bilaterally, no rales, no rhonchi and no wheezes Cardio Rate: bradycardic Rhythm: regular rhythm Heart Sounds: S1 normal and S2 normal GI Inspection: normal to inspection and other (ecchymosis, associates with Lovenox when admitted) Palpation: soft, not firm, no guarding, hernia ventral, no pulsatile masses, not rigid, tender in the RLQ and No ascites Percussion: normal to percussion Auscultation: normal bowel sounds Rectal Exam - female: visual inspection normal and heme negative stool Back/Spine/Pelvis Back: no CVA tenderness Skin General skin exam: no rashes or lesions noted Trauma: no lacerations or abrasions Neuro General: patient alert and patient awake Cognition: normal cognition Speech: speech normal Gait: normal gait Extrem General: capillary refill normal, no calf tenderness, normal gait (ambulates with walker) and edema Laterality: bilateral Psych Appearance: grossly normal and well kempt Mental Status: mental status grossly normal Speech and Movement: speech and movement normal Course Vital Signs Vital signs: Vital Signs Temperature 36.8 C 07/16/21 15:29 Pulse 55 L 07/16/21 15:29 Respiratory Rate 18 07/16/21 15:29 Blood Pressure 138/60 07/16/21 15:29 Pulse Oximetry 95 07/16/21 15:29 Temperature 36.8 C 07/16/21 15:29 Temperature Source Skin 07/16/21 15:29 Pulse 55 L 07/16/21 15:29 Respiratory Rate 18 07/16/21 15:29 Respiratory Effort 07/16/21 15:41 Blood Pressure 138/60 07/16/21 15:29 Blood Pressure Position Sitting 07/16/21 15:29 Pulse Oximetry 95 07/16/21 15:29 Oxygen Delivery Method Room Air 07/16/21 15:29 Oxygen Flow Rate 0 09/27/21 15:29 Pain Level 5 07/16/21 15:29 Comment 07/16/21 15:29
--- NOTE | 2021-07-16 17:05 | NUR.NOTE ---
med list from [facility] Nursing Note:
[2021-07-16 18:51] LABS: Absolute Basophil Count 0.02 10^3/uL (0.0-0.2); Absolute Eosinophil Count 0.18 10^3/uL (0.0-0.7); Absolute Lymphocyte Count 1.22 10^3/uL (1.2-3.4); Absolute Monocyte Count 0.86 10^3/uL (0.1-0.8); Absolute Neutrophil Count 8.37 10^3/uL (1.2-6.7); Basophils % 0.2; Eosinophils % 1.7; HCT 23.5 % (36.0-46.0); HGB 7.1 g/dL (11.2-15.7); Immature Grans % 0.9; Lymphocytes % 11.3; MCH 31.1 pg (27.0-33.0); MCHC 30.2 % (32.0-36.0); MCV 103.1 fL (80-95); MPV 9.5 fL (8.0-11.0); Neutrophils % 77.9; Nucleated RBC 0 %; Platelet Count 384 10^3/uL (130-400); RBC 2.28 10^6/uL (3.93-5.22); RDW 15.2 % (11.7-14.6); RDW-SD 55.7 fL; WBC 10.75 10^3/uL (4.4-10.8)
[2021-07-16 19:05] LABS: PTT Activated 35.7 sec (21.0-27.5); Prothrombin Time 19.3 sec (9.3-11.0)
[2021-07-16 19:12] LABS: ALT 24 U/L (14-59); AST 27 U/L (15-37); Alkaline Phosphatase 91 U/L (46-116); Anion Gap 4.4 mmol/L (3-11); BUN 49 mg/dL (7-18); Bilirubin, Total 0.7 mg/dL (0.2-1.0); CO2 30.6 mmol/L (21.0-32.0); CREATININE 3.2 mg/dL (0.55-1.02); Calcium 8.6 mg/dL (8.5-10.1); Chloride 104 mmol/L (98-107); Estimated GFR 13.94 (mL/min/1.73m2); Glucose 118 mg/dL (74-106); Magnesium 2.7 mg/dL (1.8-2.4); Potassium 5.2 mmol/L (3.5-5.1); Sodium 139 mmol/L (136-145); Total Protein 6.5 g/dL (6.4-8.2); Troponin I 0.06 ng/mL (<0.06)
[2021-07-16 19:15] LABS: NT-proBNP 6521 pg/mL (<300)
[2021-07-16 19:23] LABS: INR 1.9 (0.9-1.1)
--- NOTE | 2021-07-16 20:15 | DI.RAD_ITS ---
Exam(s) XR CHEST 2V PA LATERAL EXAM: XR CHEST 2V PA LATERAL CLINICAL HISTORY: increased SOB, hx CHF TECHNIQUE: 2D digital imaging was performed of the chest. To images were obtained. PA and lateral views were obtained. COMPARISON: CR XR CHEST 2V PA LATERAL from 08/28/2018 FINDINGS: MEDIASTINUM: Normal. HEART: Normal. PULMONARY VASCULATURE: Atherosclerosis of the thoracic aorta. Question of mild prominence of the pul monary vasculature. LUNGS: Mild bilateral interstitial prominence is seen. PLEURAL SPACE: No pleural effusion or pneumothorax. BONE:Within normal limits for the patient's age. OTHER FINDINGS:Normal. IMPRESSION: Mild bilateral interstitial prominence and prominence of the pulmonary vasculature which may represen t pulmonary edema. A nonspecific pneumonitis cannot be excluded. Please correlate clinically. DATA REPOSITORY: RADIATION DOSE DELIVERED:
--- NOTE | 2021-07-16 20:18 | W.PM.HP.N ---
Date of service: 07/16/21 Time of Service: 20:18 Assessment and Plan Assessment and plan (1) SOB (shortness of breath): Status: Acute Assessment and plan: SOB. At this point likely some combination of anemia and worsening CHF, though it must be noted that anemia may work to mitigate the effects of volume overload insofar as it may be due to bleeding. In this regard there is no documentation of GI bleeding and the only known source would be the surgical wound -- which does not appear to be an active issue at present. Patient is oxygenating well at present but I have asked for CXR to further characterize situation. All occurring in setting of decline in renal function, unclear if this is drug effect (viz, diuretic), progression of underlying disease or drug toxicity. Will be a delicate balance to address competing issues of volume overload, renal function and anemia. Will avoid transfusion and allow natural recovery of hematocrit as long as continues to progress. Will trial dose of IV Lasix but monitor renal function closely. 1. Anemia: track hematocrit, stool guiacs 2. CHF: await CXR, trial Lasix, 3. Azotemia: monitor BUN/Cr 4. AF: rate control, may resume Coumadin if no further bleeding identified. History of Present Illness History of Present Illness Chief Complaint: SOB Narrative: 81 female with multiple problems, including AF, CHF -- she is 10 days s/p left TKR, seen here 3 days [employer] with some bleeding from wound and elevated INR. Hct down to 22 at time, from priscilla-op level of 30. Coumadin held, started on iron. Returns today due to RLQ pain, found to have incarcerated hernia which was reduced in ER, pain now resolved. However, has ongoing issues with worsening SOB and LE swelling. In ER findings of note for hem neg stool, INR 1.9, HCT 23, BNP>6000, worsening azotemia, neg trop and no ischemic changes on EKG. I was asked to evaluate for admission. Patient denies CP. Not SOB at the moment but does endorse SANCHEZ and orthopnea. Stools are black, but only since starting the iron the other day. Review of Systems All systems reviewed & are unremarkable except as noted in HPI and below PFSH Medical History Atrial fibrillation Chronic diastolic CHF (congestive heart failure) CKD (chronic kidney disease), stage III Depression Diverticulosis of colon DNI (do not intubate) DNR (do not resuscitate) Fibromyalgia Gastroesophageal reflux Goals of care, counseling/discussion History of tobacco use Hydronephrosis Hyperlipidemia Hypertension Intestinal adhesions Normocytic anemia NSTEMI (non-ST elevated myocardial infarction) pt. 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 POLST (Physician Orders for Life-Sustaining Treatment) done 02/16/20 Pulmonary hypertension Respiratory infection Systemic lupus erythematosus F/U with / Ramona @ [facility] [place] Surgical History History of hysterectomy History of partial colectomy partial bowel resection-colectomy with colosotmy ad reversal, abdominal adhesions History of surgical removal of ganglion cyst both wrists History of tonsillectomy and adenoidectomy History of total right knee replacement (TKR) Hx of bilateral cataract extraction Hx of section Hx of knee surgery S/p bilateral carpal tunnel release Status post total left knee replacement (~1999) Family History Father Heart disease Diabetes Mother Heart disease Hypertension Son Diabetes Granddaughter No problems noted. Granddaughter No problems noted. Daughter Hemochromatosis Social History Smoking/Tobacco Use Status: Former Tobacco Use Quit Date: 10/20/89 Smoking risk assessment performed?: Yes Alcohol Intake: current Alcohol Intake frequency: holidays/special occasions only Drug use: Never Substance use type: does not use Caregiver/Support person: No Household members: none Housing: house Communication Needs: Hard of Hearing and Corrective Lenses Education Level: high school Do you need help understanding health information?: Always How often do you talk on the phone with friends or family?: three or more times per week How often do you get together with friends or relatives?: three or more times per week Panel score (0-1 are the most socially isolated patients): 1 What type of physical activity do you participate in: walking and sedentary lifestyle Duration: < 15 minutes/day Special marci needs: No Seatbelt use: always Do you feel safe at home: Yes Do you feel safe in your relationship?: Yes Meds Allergies and Home Medications Allergies Allergy/AdvReac Type Severity Reaction Status Date / Time Sulfa (Sulfonamide Allergy Verified 07/16/21 15:40 Antibiotics) cat scan dye AdvReac Uncoded 07/16/21 15:40 Home Medications Medication Instructions Recorded Confirmed Type Savella 50 mg PO BID 11/24/17 07/16/21 History atorvastatin [Lipitor] 20 mg PO HS 05/17/19 07/16/21 History polyethylene glycol 3350 [Miralax] 17 g PO DAILY 08/26/19 07/16/21 History amiodarone [Pacerone] 200 mg PO DAILY #0 tab 11/14/19 07/16/21 Rx nitroglycerin 0.4 mg SL Q5-15M PRN #20 tab 11/14/19 07/16/21 Rx albuterol sulfate [ProAir HFA] 90 mcg INHALATION DAILY 02/13/20 07/16/21 History warfarin 5 mg tablet 5 mg PO DAILY #0 tab 07/20/20 07/16/21 Rx hydroxychloroquine 200 mg tablet 200 mg PO DAILY tab 05/31/21 07/16/21 History metoprolol succinate 50 mg 50 mg PO DAILY 05/31/21 07/16/21 History tablet,extended release 24 hr famotidine 20 mg tablet 20 mg PO .COMPLEX 06/29/21 07/16/21 History furosemide 20 mg tablet 80 mg PO DAILY AM 06/29/21 07/13/21 History pramipexole 0.25 mg tablet 0.125 - 0.5 mg PO QHS tab 06/29/21 07/16/21 History tramadol 50 mg tablet 50 mg PO HS PRN tab 06/29/21 07/16/21 History acetaminophen [Tylenol Extra 500 mg PO Q6H PRN #90 tab 07/04/21 Rx Strength] celecoxib [Celebrex] 200 mg PO BID #60 cap 07/04/21 07/13/21 Rx furosemide 40 - 80 mg PO DIRECTED 07/04/21 07/16/21 History gabapentin 300 mg PO QHS #14 cap 07/04/21 07/13/21 Rx oxycodone 5 mg PO Q4H PRN #18 tab 07/04/21 Rx pantoprazole [Protonix] 40 mg PO DAILY #30 tab 07/04/21 07/13/21 Rx enoxaparin 100 mg SUBCUT Q12H #6 syrg 07/05/21 07/13/21 Rx ondansetron 4 mg PO Q6H PRN #12 tab 07/05/21 Rx albuterol sulfate 2.5 mg INHALATION Q4H PRN 07/16/21 07/16/21 History cephalexin 500 mg PO TID PRN 07/16/21 07/16/21 History docusate calcium 240 mg PO BID 07/16/21 07/16/21 History ferrous sulfate [iron] 324 mg PO DAILY 07/16/21 07/16/21 History hydralazine 10 mg PO BID 07/16/21 07/16/21 History meclizine 12.5 mg PO BID PRN 07/16/21 07/16/21 History Exam Narrative Exam Narrative: 155/50, 53, 36.8, 18, 96% RA. HEENT atraumatic; neck supple, unable to read JVP; lungs grossly clear but sounds obscured by ambient sound; heart irr/irr; abdomen soft and NT; rectal (per ER) heme neg; extremities 2+ pedal edema, left knee dressing appears dry; neuro Ox3, lucid, moves all 4s Results Labs Result diagrams: 07/16/21 18:20 07/16/21 18:20 Labs: Laboratory Results - last 24 hr 07/16/21 07/16/21 07/16/21 18:20 18:20 18:20 WBC 10.75 RBC 2.28 L Hgb 7.1 L Hct 23.5 L MCV 103.1 H MCH 31.1 MCHC 30.2 L RDW 15.2 H Plt Count 384 MPV 9.5 Immature Gran % 0.9 Neutrophils % 77.9 Lymphocytes % 11.3 Monocytes % 8.0 Eosinophils % 1.7 Basophils % 0.2 Nucleated RBC % 0 Absolute Neutrophils 8.37 H Absolute Lymphocytes 1.22 Absolute Monocytes 0.86 H Absolute Eosinophils 0.18 Absolute Basophils 0.02 PT 19.3 H INR 1.9 H APTT 35.7 H Sodium 139 Potassium 5.2 H Chloride 104 Carbon Dioxide 30.6 Anion Gap 4.4 BUN 49 H Creatinine 3.2 H Estimated GFR/1.73 m2 13.94 Glucose 118 H Calcium 8.6 Magnesium 2.7 H Total Bilirubin 0.7 AST 27 ALT 24 Alkaline Phosphatase 91 Troponin I 0.06 NT-Pro-B Natriuret Pep Total Protein 6.5 Albumin 3.0 L 07/16/21 18:20 WBC RBC Hgb Hct MCV MCH MCHC RDW Plt Count MPV Immature Gran % Neutrophils % Lymphocytes % Monocytes % Eosinophils % Basophils % Nucleated RBC % Absolute Neutrophils Absolute Lymphocytes Absolute Monocytes Absolute Eosinophils Absolute Basophils PT INR APTT Sodium Potassium Chloride Carbon Dioxide Anion Gap BUN Creatinine Estimated GFR/1.73 m2 Glucose Calcium Magnesium Total Bilirubin AST ALT Alkaline Phosphatase Troponin I NT-Pro-B Natriuret Pep 6521 H Total Protein Albumin Last Vital Signs Temp 36.8 C 07/16/21 15:29 Pulse 53 L 07/16/21 20:02 Resp 18 07/16/21 15:29 BP 155/50 H 07/16/21 20:02 Pulse Ox 96 07/16/21 20:11
[2021-07-16 21:23] LABS: Source Nasal/Nares
[2021-07-16 21:55] LABS: Troponin I 0.06 ng/mL (<0.06)
--- NOTE | 2021-07-16 22:03 | DI.VRAD_ITS ---
PROCEDURE INFORMATION: Exam: XR Chest Exam date and time: 07/16/2021 8:22 PM Age: 81 years old Clinical indication: Other: Increased SOB, HX chf TECHNIQUE: Imaging protocol: XR of the chest. Views: 2 views. COMPARISON: CT CHEST/ABD/PEL WO 07/13/2021 4:54 PM FINDINGS: Lungs: There is perihilar interstitial coarsening and mild cephalization of the pulmonary vasculature. Pleural spaces: No pleural effusion. No pneumothorax. Heart/Mediastinum: Normal in size. Bones/joints: No acute fracture is identified. IMPRESSION: Findings suggest mild cardiopulmonary congestion without pulmonary edema. The differential diagnosis is nonspecific pneumonitis. Clinical correlation is suggested. Dictated and Authenticated by: Charanjit Mendenhall MD. Ordering:YISSEL Churchill MD
[2021-07-17] MEDS: Furosemide 100 MG/10 ML VIAL 80 MG IVP (00:28)
[2021-07-17] MEDS: Normal Saline Flush 10 ML SYR IVP ×3 (00:28→16:55)
[2021-07-17] MEDS: Atorvastatin 20 MG TAB PO ×2 (00:28→21:34)
[2021-07-17 00:55] LABS: COVID-19 PCR Negative (Negative)
[2021-07-17] MEDS: Acetaminophen 325 MG TAB 650 MG PO ×2 (02:23→20:29)
--- NOTE | 2021-07-17 06:32 | W.SURGCON ---
Assessment and Plan Assessment and plan (1) Incisional hernia: Status: Acute Assessment and plan: Mrs Lopez is a pleasant 81-year-old female with multiple medical issues who has an incisional hernia at her old ostomy site. It has been tender on and off for a while but seemed more tender today which is why she came back to the emergency department. Her CT scan from the was reviewed. There is a small loop of bowel within the hernia defect but it is not abnormally dilated and there is no fluid around the bowel. There is some stranding noted but after doing an examination on the patient I feel that this is old scar tissue and not inflammation. With gentle pressure I was able to get the hernia to reduce without difficulty. The patient stated her pain got better once that was done. The patient also endorses that the hernia does get bigger and smaller throughout the day so I do not feel that it is at this time incarcerated. As she does seem to be having some issues with it I do recommend that she have this repaired. She does have a general surgeon that she is familiar will [facility] at [facility] so I have encouraged her to reach out to them to discuss repair. She has been asked to return to the emergency department if she develops worsening pain, nausea vomiting or stops passing flatus. Qualifiers: Obstruction and gangrene presence: without obstruction or gangrene Qualified Code(s): K43.2 - Incisional hernia without obstruction or gangrene History of Present Illness History of Present Illness Chief Complaint: Abdominal pain Narrative: Mrs Lopez is a pleasant 81-year-old female with a past medical history significant for a bowel resection requiring an ostomy. She was seen in the emergency department on Friday the for some abdominal pain. CT scan was done at that time which showed a hernia at the old ostomy site. There was question of inflammation and question of incarceration. The case was discussed with the on-call surgeon who did not feel that this was incarcerated. The patient felt better and went home. She came back again today because of abdominal pain, nausea and vomiting x1. She is passing gas and having bowel movements. The patient tells me that she feels quite bloated usually by late afternoon every day and has nausea. Her hernia seems to get larger at times and then shrink again. She does have some chronic pain in this area. She tells me that her prior surgery was quite difficult due to adhesions. She denies any fevers or chills at this time. Past medical history is otherwise significant for acute on chronic diastolic CHF shortness of breath, paroxysmal atrial fibrillation and pulmonary hypertension. She did just undergo a knee revision by Dr. Gipson. She has been anemic since that time. She was started on iron on Friday the . I reviewed the CT scan from 07/13. There is a bowel loop within the hernia defect. There is no fluid and no abnormal dilatation. There is scar tissue throughout the area. Consults Consult date: 07/16/21 Requesting physician: Kerline Garcia Review of Systems Constitutional Constitutional: Reports fatigue, Denies fever(s), Denies headache(s) and Denies weight loss Eyes Eyes: Denies change in vision ENT Ears, Nose, Mouth, and Throat: Denies dysphagia, Denies headache(s) and Denies hoarseness Cardiovascular Cardiovascular: Denies chest pain, Reports irregular heart rhythm, Denies dyspnea and Reports dyspnea on exertion Respiratory Respiratory: Denies cough, Denies dyspnea and Reports dyspnea on exertion Gastrointestinal Gastrointestinal: Reports as per HPI, Denies dysphagia, Denies dyspepsia and Denies heartburn Genitourinary Genitourinary: Reports system reviewed and no additional complaints, except as documented Musculoskeletal Musculoskeletal: Reports system reviewed and no additional complaints, except as documented Integumentary/Breasts Skin/Breast: Reports system reviewed and no additional complaints, except as documented Neurologic Neurologic: Reports system reviewed and no additional complaints, except as documented and Denies headache(s) Psychiatric Psychiatric: Reports system reviewed and no additional complaints, except as documented Endocrine Endocrine: Reports system reviewed and no additional complaints, except as documented and Reports fatigue Hematologic/Lymphatic Hematologic/Lymphatic: Reports system reviewed and no additional complaints, except as documented [facility] Medical History Atrial fibrillation Chronic diastolic CHF (congestive heart failure) CKD (chronic kidney disease), stage III Depression Diverticulosis of colon DNI (do not intubate) DNR (do not resuscitate) Fibromyalgia Gastroesophageal reflux Goals of care, counseling/discussion History of tobacco use Hydronephrosis Hyperlipidemia Hypertension Intestinal adhesions Normocytic anemia NSTEMI (non-ST elevated myocardial infarction) pt. 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 POLST (Physician Orders for Life-Sustaining Treatment) done 02/16/20 Pulmonary hypertension Respiratory infection Systemic lupus erythematosus [place] [facility] [place] History History of hysterectomy History of partial colectomy partial bowel resection-colectomy with colosotmy ad reversal, abdominal adhesions History of surgical removal of ganglion cyst both wrists History of tonsillectomy and adenoidectomy History of total right knee replacement (TKR) Hx of bilateral cataract extraction Hx of section Hx of knee surgery S/p bilateral carpal tunnel release Status post total left knee replacement (~1999) Family History Father Heart disease Diabetes Mother Heart disease Hypertension Son Diabetes Granddaughter No problems noted. Granddaughter No problems noted. Daughter Hemochromatosis Social History Smoking/Tobacco Use Status: Former Tobacco Use Quit Date: 10/20/89 Smoking risk assessment performed?: Yes Alcohol Intake: current Alcohol Intake frequency: holidays/special occasions only Drug use: Never Substance use type: does not use Caregiver/Support person: No Household members: none Housing: house Communication Needs: Hard of Hearing and Corrective Lenses Education Level: high school Do you need help understanding health information?: Always How often do you talk on the phone with friends or family?: three or more times per week How often do you get together with friends or relatives?: three or more times per week Panel score (0-1 are the most socially isolated patients): 1 What type of physical activity do you participate in: walking and sedentary lifestyle Duration: < 15 minutes/day Special marci needs: No Seatbelt use: always Do you feel safe at home: Yes Do you feel safe in your relationship?: Yes Exam Const General: cooperative, comfortable and no acute distress Orientation: alert and oriented x3 HENMT Head: normocephalic and atraumatic Resp Effort & Inspection: normal respiratory effort Auscultation: clear to auscultation bilaterally Cardio Rate: regular rate Rhythm: abnormal rhythm Heart Sounds: no gallops, no murmurs and no rubs GI Inspection: normal to inspection and scar (multiple scars noted. All are well healed) Palpation: soft, no hepatosplenomegaly and tender (over the old ostomy site) Other: Hernia is palpated at the old ostomy site. There is a lot of scar tissue palpated as well. With gentle pressure the hernia was reduced and the patients pain improved Results Last Vital Signs Temp 97.7 F 07/16/21 22:51 Pulse 74 07/16/21 22:51 Resp 16 07/16/21 22:51 BP 147/87 H 07/16/21 22:51 Pulse Ox 98 07/16/21 22:51 Labs Result diagrams: 07/16/21 18:20 07/16/21 18:20 Labs: Laboratory Results - last 24 hr 07/16/21 07/16/21 07/16/21 18:20 18:20 18:20 WBC 10.75 RBC 2.28 L Hgb 7.1 L Hct 23.5 L MCV 103.1 H MCH 31.1 MCHC 30.2 L RDW 15.2 H Plt Count 384 MPV 9.5 Immature Gran % 0.9 Neutrophils % 77.9 Lymphocytes % 11.3 Monocytes % 8.0 Eosinophils % 1.7 Basophils % 0.2 Nucleated RBC % 0 Absolute Neutrophils 8.37 H Absolute Lymphocytes 1.22 Absolute Monocytes 0.86 H Absolute Eosinophils 0.18 Absolute Basophils 0.02 PT 19.3 H INR 1.9 H APTT 35.7 H Sodium 139 Potassium 5.2 H Chloride 104 Carbon Dioxide 30.6 Anion Gap 4.4 BUN 49 H Creatinine 3.2 H Estimated GFR/1.73 m2 13.94 Glucose 118 H Calcium 8.6 Magnesium 2.7 H Total Bilirubin 0.7 AST 27 ALT 24 Alkaline Phosphatase 91 Troponin I 0.06 NT-Pro-B Natriuret Pep Total Protein 6.5 Albumin 3.0 L COVID-19 Source SARS-CoV-2 (PCR) 07/16/21 07/16/21 07/16/21 18:20 20:50 21:30 WBC RBC Hgb Hct MCV MCH MCHC RDW Plt Count MPV Immature Gran % Neutrophils % Lymphocytes % Monocytes % Eosinophils % Basophils % Nucleated RBC % Absolute Neutrophils Absolute Lymphocytes Absolute Monocytes Absolute Eosinophils Absolute Basophils PT INR APTT Sodium Potassium Chloride Carbon Dioxide Anion Gap BUN Creatinine Estimated GFR/1.73 m2 Glucose Calcium Magnesium Total Bilirubin AST ALT Alkaline Phosphatase Troponin I 0.06 NT-Pro-B Natriuret Pep 6521 H Total Protein Albumin COVID-19 Source Nasal/Nares SARS-CoV-2 (PCR) Negative
[2021-07-17 07:14] LABS: HCT 25.5 % (36.0-46.0)
[2021-07-17 07:22] LABS: Prothrombin Time 19.3 sec (9.3-11.0)
[2021-07-17 07:24] LABS: INR 1.9 (0.9-1.1)
[2021-07-17 07:26] LABS: Anion Gap 6.4 mmol/L (3-11); BUN 49 mg/dL (7-18); CO2 30.6 mmol/L (21.0-32.0); Calcium 8.8 mg/dL (8.5-10.1); Chloride 105 mmol/L (98-107); Estimated GFR 15.01 (mL/min/1.73m2); Glucose 106 mg/dL (74-106); Potassium 4.4 mmol/L (3.5-5.1); Sodium 142 mmol/L (136-145)
[2021-07-17 07:53] VITALS: BP 171/63; PULSE 68; RESP 18; TEMP 36.7; O2SAT 96
[2021-07-17] MEDS: Ferrous Sulfate 325 MG TAB PO (08:24)
[2021-07-17] MEDS: Amiodarone 200 MG TAB PO (08:25)
[2021-07-17] MEDS: Metoprolol CR 50 MG TABCR PO (08:25)
[2021-07-17] MEDS: Hydroxychloroquine 200 MG TAB PO (08:25)
[2021-07-17] MEDS: hydrALAZINE 10 MG TAB PO ×2 (08:39→20:29)
--- NOTE | 2021-07-17 14:12 | PGE_ITS ---
Date of Service Date of service: 07/17/21 Time of Service: 14:12 Assessment and Plan Assessment and plan (1) Chronic diastolic CHF (congestive heart failure): Status: Acute Assessment and plan: Presented with SOA. Likely exacerbation secondary to anemia. Given Lasix 80mg IV in the ED. Diuresing well. Lasix 20mg this afternoon and in the AM. Monitoring creatinine which has gone from 3.2 to 3.0 since admission. (2) Anemia: Status: Chronic Assessment and plan: Hgb 6.9 >7.1>8.0 Stool was heme neg in ED Cont to hold coumadin that has been held since prior to R knee revision. Monitor. (3) Paroxysmal atrial fibrillation: Status: Chronic Assessment and plan: Holding coumadin Cont amiodarone and metoprolol. Rate controlled. (4) Incisional hernia: Status: Acute Assessment and plan: Reduced in the ED by Dr Peace / gen surg. Qualifiers: Obstruction and gangrene presence: without obstruction or gangrene Qualified Code(s): K43.2 - Incisional hernia without obstruction or gangrene (5) History of arthroplasty of left knee: Status: Acute Assessment and plan: Likely some bleeding into the surgical site causing the anemia. Consult PT. Subjective Subjective Patient reports: tolerating a regular diet, shortness of breath (Improved) and a febrile; denies nausea and vomiting Exam Narrative Exam Narrative: 155/50, 53, 36.8, 18, 96% RA. HEENT atraumatic; neck supple, unable to read JVP; lungs grossly clear but sounds obscured by ambient sound; heart irr/irr; abdomen soft and NT; rectal (per ER) heme neg; extremities 2+ pedal edema, left knee dressing appears dry; neuro Ox3, lucid, moves all 4s Const General: cooperative and no acute distress Nutritional Appearance: obese Orientation: alert and oriented x3 Resp Effort & Inspection: normal respiratory effort Auscultation: clear to auscultation bilaterally Cardio Rate: regular rate Rhythm: regular rhythm Heart Sounds: S1 normal and S2 normal GI Inspection: other (Hernia at previous ostomy site; not incarcerated) Palpation: soft and nontender Skin General skin exam: ecchymosis Rashes: no rashes Extrem General: no calf tenderness and pedal edema bilaterally 2+ Knee images: 1. swelling and ecchymosis. Incision with 2 small areas of diastases. Objective Last Vital Signs Temp 36.7 C 07/17/21 07:53 Pulse 68 07/17/21 07:53 Resp 18 07/17/21 07:53 BP 171/63 H 07/17/21 07:53 Pulse Ox 96 07/17/21 07:53 Laboratory Results - last 24 hr 07/16/21 07/16/21 07/16/21 18:20 18:20 18:20 WBC 10.75 RBC 2.28 L Hgb 7.1 L Hct 23.5 L MCV 103.1 H MCH 31.1 MCHC 30.2 L RDW 15.2 H Plt Count 384 MPV 9.5 Immature Gran % 0.9 Neutrophils % 77.9 Lymphocytes % 11.3 Monocytes % 8.0 Eosinophils % 1.7 Basophils % 0.2 Nucleated RBC % 0 Absolute Neutrophils 8.37 H Absolute Lymphocytes 1.22 Absolute Monocytes 0.86 H Absolute Eosinophils 0.18 Absolute Basophils 0.02 PT 19.3 H INR 1.9 H APTT 35.7 H Sodium 139 Potassium 5.2 H Chloride 104 Carbon Dioxide 30.6 Anion Gap 4.4 BUN 49 H Creatinine 3.2 H Estimated GFR/1.73 m2 13.94 Glucose 118 H Calcium 8.6 Magnesium 2.7 H Total Bilirubin 0.7 AST 27 ALT 24 Alkaline Phosphatase 91 Troponin I 0.06 NT-Pro-B Natriuret Pep Total Protein 6.5 Albumin 3.0 L COVID-19 Source SARS-CoV-2 (PCR) 07/16/21 07/16/21 07/16/21 18:20 20:50 21:30 WBC RBC Hgb Hct MCV MCH MCHC RDW Plt Count MPV Immature Gran % Neutrophils % Lymphocytes % Monocytes % Eosinophils % Basophils % Nucleated RBC % Absolute Neutrophils Absolute Lymphocytes Absolute Monocytes Absolute Eosinophils Absolute Basophils PT INR APTT Sodium Potassium Chloride Carbon Dioxide Anion Gap BUN Creatinine Estimated GFR/1.73 m2 Glucose Calcium Magnesium Total Bilirubin AST ALT Alkaline Phosphatase Troponin I 0.06 NT-Pro-B Natriuret Pep 6521 H Total Protein Albumin COVID-19 Source Nasal/Nares SARS-CoV-2 (PCR) Negative 07/17/21 07/17/21 07/17/21 06:40 06:40 06:40 WBC RBC Hgb 8.0 L Hct 25.5 L MCV MCH MCHC RDW Plt Count MPV Immature Gran % Neutrophils % Lymphocytes % Monocytes % Eosinophils % Basophils % Nucleated RBC % Absolute Neutrophils Absolute Lymphocytes Absolute Monocytes Absolute Eosinophils Absolute Basophils PT 19.3 H INR 1.9 H APTT Sodium 142 Potassium 4.4 Chloride 105 Carbon Dioxide 30.6 Anion Gap 6.4 BUN 49 H Creatinine 3.0 H Estimated GFR/1.73 m2 15.01 Glucose 106 Calcium 8.8 Magnesium Total Bilirubin AST ALT Alkaline Phosphatase Troponin I NT-Pro-B Natriuret Pep Total Protein Albumin COVID-19 Source SARS-CoV-2 (PCR)
[2021-07-17 15:41] VITALS: BP 163/75; PULSE 70; RESP 18; TEMP 36.6; O2SAT 97
[2021-07-17] MEDS: Furosemide 20 MG/2 ML VIAL IVP (16:55)
--- NOTE | 2021-07-17 17:00 | CHAPLAIN ---
Chandni was in bed when I visited. She told me about the stomach pain, vomiting and dry heaving that brought her here. She said that earlier in the day the doctor pressed down on her stomach, it was very painful, I thought she was killing me, and was able to resituate a hernia and Chandni felt much better. Her son works long hours a automatic wheel line operator, but her daughter in law will be bringing some personal items in for Chandni, as she didn't expect to be admitted, and she will likely be going home tomorrow.
--- NOTE | 2021-07-17 19:39 | PDOC.CMIN ---
- If Service Date Differs Date of service: 07/17/21 Time of Service: 19:39 Care Management Initial Assess REASON FOR HOSPITALIZATION:: CHF, anemia PAST MEDICAL HISTORY/PAST SURGICAL HISTORY:: Medical History. Atrial fibrillation. Chronic diastolic CHF (congestive heart failure). CKD (chronic kidney disease), stage III. Depression. Diverticulosis of colon. DNI (do not intubate). DNR (do not resuscitate). Fibromyalgia. Gastroesophageal reflux. Goals of care, counseling/discussion. History of tobacco use. Hydronephrosis. Hyperlipidemia. Hypertension. Intestinal adhesions. Normocytic anemia. NSTEMI (non-ST elevated myocardial infarction). pt. denies this. Palliative care patient. POLST (Physician Orders for Life-Sustaining Treatment). done 02/16/20. Pulmonary hypertension. Respiratory infection. Systemic lupus erythematosus. [place] [facility] [place]. History of hysterectomy. History of partial colectomy. partial bowel resection-colectomy with colosotmy ad reversal, abdominal adhesions. History of surgical removal of ganglion cyst. both wrists. History of tonsillectomy and adenoidectomy. History of total right knee replacement (TKR). Hx of bilateral cataract extraction. Hx of section. Hx of knee surgery. S/p bilateral carpal tunnel release. Status post total left knee replacement (~1999) PREVIOUS FUNCTIONAL STATUS/SOCIAL/FAMILY SUPPORTS:: Chandni lives in [place] in an in law apartment at her son and daughter in law's home. She recently sold her large home, and is getting used to her new, much smaller home. She has two children, but has not had contact with her daughter for four years. Her son and daughter in law provide her with any support she is willing to ask for. She is very independent at baseline, and still drives. CURRENT FUNCTIONAL STATUS:: Chandni was walking about her room when CM met with her. She stated that she wants to be sure that she is moving/walking around, as she knows how important it is to remain active, even when in the hospital. She asked to work with PT, and CM confirmed that a consult has been placed. Chandni reported that she sometimes doesn't ask for help when she should, stating that she fell twice after a recent knee revision, and didn't call her son for help until she had been on the ground for a while after the second fall. She plans to have her second knee revised soon, and expressed the need to stay overnight after the surgery. Per report, she is receiving lasix and is diuresing well. Her BUN and creatnine remain elevated, and continue to be monitored. CM will continue to follow. ADVANCE DIRECTIVES:: COLST and AD on file, Ton Cardona listed as agent. Has patient been provided with info about the portal/API?: Yes Did the patient sign up for the portal?: No CODE STATUS:: DNR/DNI INSURANCE COVERAGE / FINANCIAL ISSUES:: [employer] CURRENT HOME/COMMUNITY SERVICES/EQUIPMENT:: Chandni has HH RN, PT, and MOW currently. She uses a FWW for ambulation. She is interested in light housekeeping, which CM informed HH of, but they are unable to fill new orders for moderate needs at this time due to staffing shortages. PRIMARY CARE PHYSICIAN:: Lyubov Tee POTENTIAL DISCHARGE NEEDS:: Resumption of HH, follow up appointments. PATIENT/FAMILY EDUCATION NEEDS:: Review discharge instructions regarding activity levels and medications, discussion of self care needs including ask me three. ANTICIPATED BARRIERS TO DISCHARGE:: None identified. TRANSPORTATION:: Via private vehicle by family. PLAN:: Anticipate Chandni will return home once medically cleared by MD. She will resume HH services, which CM will coordinate. Her family will drive her home via private vehicle when ready. She will follow up with her PCP and discharge plan of care. CM will continue to follow.
[2021-07-17 20:19] VITALS: BP 146/74; PULSE 67; RESP 18; TEMP 37.1; O2SAT 98
--- NOTE | 2021-07-17 21:02 | W.ORTHOCONSU ---
Date of service: 07/17/21 History of Present Illness History of Present Illness Chief Complaint: S/P L TKA Narrative: Chandni was admitted to the hospital with anemia and RHONDA, and she is also approximately 1 week status post a left revision total knee replacement (DOS: 07/05/2021). She states that the revision knee replacement actually feels quite good. She states that prior to her admission to the hospital she has been using her bike at home and felt good while using it. She is somewhat discouraged that she is not able to use a stationary bike while she is admitted to the hospital. She states that the pain is minimal and overall she feels as though she is doing well. She does ambulate with some help at this point. Assessment and Plan Assessment and plan (1) History of revision of total replacement of left knee joint: Status: Acute Assessment and plan: Chandni appears to be doing well only 1 week status post a revision left total knee replacement. Again she admits some frustration about not being able to work on her range of motion exercises with her bike at home. PT consultation is recommended at this time to work on range of motion exercises while she is here in the hospital. She does have a follow-up appointment planned for this week and orthopedics, and if she is discharged from the hospital at that time we will see her then. Routine PT consultation has been ordered today. [facility] Medical History (Updated 07/17/21 @ 21:08 by KANCHAN Wang) Atrial fibrillation Chronic diastolic CHF (congestive heart failure) CKD (chronic kidney disease), stage III Depression Diverticulosis of colon DNI (do not intubate) DNR (do not resuscitate) Fibromyalgia Gastroesophageal reflux Goals of care, counseling/discussion 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 POLST (Physician Orders for Life-Sustaining Treatment) done 02/16/20 Pulmonary hypertension Respiratory infection Systemic lupus erythematosus [place] [facility] [place] History (Updated 07/17/21 @ 14:36 by Darin Collins MD) History of hysterectomy History of partial colectomy partial bowel resection-colectomy with colosotmy ad reversal, abdominal adhesions History of surgical removal of ganglion cyst both wrists History of tonsillectomy and adenoidectomy History of total right knee replacement (TKR) Hx of bilateral cataract extraction Hx of section Hx of knee surgery S/p bilateral carpal tunnel release Status post total left knee replacement (~1999) Family History Father Heart disease Diabetes Mother Heart disease Hypertension Son Diabetes Granddaughter No problems noted. Granddaughter No problems noted. Daughter Hemochromatosis Social History Smoking/Tobacco Use Status: Former Tobacco Use Quit Date: 10/20/89 Smoking risk assessment performed?: Yes Alcohol Intake: current Alcohol Intake frequency: holidays/special occasions only Drug use: Never Substance use type: does not use Caregiver/Support person: No Household members: none Housing: house Communication Needs: Hard of Hearing and Corrective Lenses Education Level: high school Do you need help understanding health information?: Always How often do you talk on the phone with friends or family?: three or more times per week How often do you get together with friends or relatives?: three or more times per week Panel score (0-1 are the most socially isolated patients): 1 What type of physical activity do you participate in: walking and sedentary lifestyle Duration: < 15 minutes/day Special marci needs: No Seatbelt use: always Do you feel safe at home: Yes Do you feel safe in your relationship?: Yes Exam Extrem Other: Exam Left Knee: Inspection: Incision is well approximated with only 2 areas of mild diastases of the incision as previously described by Dr. Gipson. No active bleeding is noted. Mepilex dressing is discolored but not saturated with blood. This was removed/ ROM: 5-80 Varus stress: stable Valgus stress: stalbe Results Last Vital Signs Temp 98.8 F 07/17/21 20:19 Pulse 67 07/17/21 20:19 Resp 18 07/17/21 20:19 BP 146/74 H 07/17/21 20:19 Pulse Ox 98 07/17/21 20:19 Labs Result diagrams: 07/17/21 06:40 07/17/21 06:40 Labs: Laboratory Results - last 24 hr 07/16/21 07/16/21 07/17/21 20:50 21:30 06:40 Hgb Hct PT INR Sodium 142 Potassium 4.4 Chloride 105 Carbon Dioxide 30.6 Anion Gap 6.4 BUN 49 H Creatinine 3.0 H Estimated GFR/1.73 m2 15.01 Glucose 106 Calcium 8.8 Troponin I 0.06 COVID-19 Source Nasal/Nares SARS-CoV-2 (PCR) Negative 07/17/21 07/17/21 06:40 06:40 Hgb 8.0 L Hct 25.5 L PT 19.3 H INR 1.9 H Sodium Potassium Chloride Carbon Dioxide Anion Gap BUN Creatinine Estimated GFR/1.73 m2 Glucose Calcium Troponin I COVID-19 Source SARS-CoV-2 (PCR)
[2021-07-17] MEDS: traMADol 50 MG TAB PO (21:33)
[2021-07-18] VITALS (14 sets, daily range): BP systolic 118–146; BP diastolic 46–75; PULSE 59–68; RESP 17–20; TEMP 36.6–38.5; O2SAT 94–98
--- NOTE | 2021-07-18 | DI.US_ITS ---
Exam(s) US SOFT TISSUE EXTREMITY EXAM: US SOFT TISSUE EXTREMITY CLINICAL HISTORY: swelling / bleeding from incision.. TECHNIQUE: Ultrasound was performed using standard protocol. COMPARISON: US US ECHOCARDIOGRAM from 11/11/2019 FINDINGS: Images are submitted for interpretation from ultrasound examination of the anterior aspect of the kne e. Submitted images reveal an abnormal area measuring approximately 14 x 7 x 15 millimeters which appear s partially solid-partially cystic there is surrounding soft tissue edema IMPRESSION: As above. Nonspecific finding. Possibly abscess versus hematoma versus neoplastic pathology. Recom mend MRI study. DATA REPOSITORY:
[2021-07-18 06:43] LABS: Abs Immature Grans 0.13 10^3/uL (0.0-0.06); Absolute Basophil Count 0.02 10^3/uL (0.0-0.2); Absolute Monocyte Count 1.43 10^3/uL (0.1-0.8); Basophils % 0.1; Eosinophils % 0.6; HCT 23.8 % (36.0-46.0); HGB 7.4 g/dL (11.2-15.7); Immature Grans % 0.7; Lymphocytes % 5.7; MCH 30.8 pg (27.0-33.0); MCHC 31.1 % (32.0-36.0); MCV 99.2 fL (80-95); MPV 9.6 fL (8.0-11.0); Monocytes % 7.4; Neutrophils % 85.5; Nucleated RBC 0 %; Platelet Count 362 10^3/uL (130-400); RDW 15.5 % (11.7-14.6); RDW-SD 55.1 fL; WBC 19.36 10^3/uL (4.4-10.8)
[2021-07-18 06:50] LABS: Absolute Eosinophil Count 0.12 10^3/uL (0.0-0.7); Absolute Neutrophil Count 16.55 10^3/uL (1.2-6.7)
[2021-07-18 06:52] LABS: Anion Gap 5.9 mmol/L (3-11); BUN 40 mg/dL (7-18); CO2 30.1 mmol/L (21.0-32.0); CREATININE 2.6 mg/dL (0.55-1.02); Calcium 8.6 mg/dL (8.5-10.1); Chloride 105 mmol/L (98-107); Estimated GFR 17.71 (mL/min/1.73m2); Glucose 97 mg/dL (74-106); Potassium 4.5 mmol/L (3.5-5.1); Sodium 141 mmol/L (136-145)
[2021-07-18] MEDS: Polyethylene Glycol 3350 17 GM PACKET PO (08:24)
[2021-07-18] MEDS: Normal Saline Flush 10 ML SYR IVP ×2 (08:25→16:14)
[2021-07-18] MEDS: Furosemide 20 MG/2 ML VIAL IVP ×2 (08:25→16:14)
[2021-07-18] MEDS: Ferrous Sulfate 325 MG TAB PO (08:25)
[2021-07-18] MEDS: Hydroxychloroquine 200 MG TAB PO (08:25)
[2021-07-18] MEDS: Amiodarone 200 MG TAB PO (08:26)
[2021-07-18] MEDS: hydrALAZINE 10 MG TAB PO ×2 (08:26→21:01)
[2021-07-18] MEDS: Metoprolol CR 50 MG TABCR PO (08:26)
[2021-07-18 10:42] LABS: Procalcitonin 0.1 ng/mL
[2021-07-18 11:31] LABS: Bilirubin Negative (Negative); Blood Negative (Negative); Clarity Clear (Clear); Glucose Negative (Negative); Ketones Negative (Negative); Leukocyte Esterase Trace (Negative); Nitrite Negative (Negative); Specific Gravity 1.015 (1.005-1.025); Urobilinogen 0.2 EU/dL (Up TO 0.2)
[2021-07-18 11:45] LABS: Bacteria Many HPF (Negative); C & S Indicated? Yes; Casts Negative LPF (Negative); Crystals Negative HPF (Negative); Epithelial Cells Rare HPF (Negative); Mucus Negative (Negative); Other Cells Few Transitional (Negative); RBC 0-2 HPF (0-2); WBC 20-50 HPF (0-5)
[2021-07-18] MEDS: cefTRIAXone 2 GM/50 ML BAG IVPB (12:11)
--- NOTE | 2021-07-18 12:51 | PGE_ITS ---
Date of Service Date of service: 07/18/21 Time of Service: 12:00 Assessment and Plan Assessment and plan (1) History of revision of total replacement of left knee joint: Status: Acute Assessment and plan: Chandni continues to have very little pain in her left knee almost 2 weeks status post a revision left total knee replacement. Since her Mepilex dressings continue to become saturated within 24 hours, a bulky dressing with 4 x 4's, ABDs and an Beni wrap was applied today. If she continues to have seepage from the wound, john dressing may be considered at some point. Physical therapy has been asked to consult with her and work on gentle range of motion exercises if possible. Subjective Subjective Patient reports: no new complaints Interval history since last seen: Chandni continues to have some bloody seen from her incision, but it does not appear to have worsened overnight. The Mepilex dressing is somewhat saturated today, but not overwhelmingly so. She states that the knee still feels good and she is very happy she does not have pain in her left knee. She is somewhat frustrated that she is unable to perform some of her exercises because she feels as though she is falling behind. Exam Extrem Other: Exam Left Knee: Inspection: Incision is well approximated with only 2 areas of mild diastases of the incision as previously described by Dr. Gipson which are unchaged overnight. No active bleeding is noted. Mepilex dressing is discolored but not fully saturated with blood. This was removed ROM: 5-80 Varus stress: stable Valgus stress: stalbe Objective Last Vital Signs Temp 98.4 F 07/18/21 08:17 Pulse 68 07/18/21 08:17 Resp 17 07/18/21 08:17 BP 144/70 H 07/18/21 08:17 Pulse Ox 95 07/18/21 08:17 Laboratory Results - last 24 hr 07/18/21 07/18/21 07/18/21 06:12 06:12 06:12 WBC 19.36 H RBC 2.40 L Hgb 7.4 L Hct 23.8 L MCV 99.2 H MCH 30.8 MCHC 31.1 L RDW 15.5 H Plt Count 362 MPV 9.6 Immature Gran % 0.7 Neutrophils % 85.5 Lymphocytes % 5.7 Monocytes % 7.4 Eosinophils % 0.6 Basophils % 0.1 Nucleated RBC % 0 Absolute Neutrophils 16.55 H Absolute Lymphocytes 1.10 L Absolute Monocytes 1.43 H Absolute Eosinophils 0.12 Absolute Basophils 0.02 Sodium 141 Potassium 4.5 Chloride 105 Carbon Dioxide 30.1 Anion Gap 5.9 BUN 40 H D Creatinine 2.6 H Estimated GFR/1.73 m2 17.71 Glucose 97 Calcium 8.6 Procalcitonin 0.1 Urine Color Urine Clarity Urine pH Ur Specific [place] Urine Protein Urine Ketones Urine Blood Urine Nitrite Urine Bilirubin Urine Urobilinogen Ur Leukocyte Esterase Urine RBC Urine WBC Ur Epithelial Cells Urine Crystals Urine Bacteria Urine Casts Urine Mucus Urine Other Ur Culture Indicated? Urine Glucose Patient ABO/Rh Antibody Screen Crossmatch 07/18/21 07/18/21 10:43 11:05 WBC RBC Hgb Hct MCV MCH MCHC RDW Plt Count MPV Immature Gran % Neutrophils % Lymphocytes % Monocytes % Eosinophils % Basophils % Nucleated RBC % Absolute Neutrophils Absolute Lymphocytes Absolute Monocytes Absolute Eosinophils Absolute Basophils Sodium Potassium Chloride Carbon Dioxide Anion Gap BUN Creatinine Estimated GFR/1.73 m2 Glucose Calcium Procalcitonin Urine Color Yellow Urine Clarity Clear Urine pH 7.0 Ur Specific [place] 1.015 Urine Protein Negative Urine Ketones Negative Urine Blood Negative Urine Nitrite Negative Urine Bilirubin Negative Urine Urobilinogen 0.2 Ur Leukocyte Esterase Trace H Urine RBC 0-2 Urine WBC 20-50 H Ur Epithelial Cells Rare Urine Crystals Negative Urine Bacteria Many Urine Casts Negative Urine Mucus Negative Urine Other Few Transitional Ur Culture Indicated? Yes Urine Glucose Negative Patient ABO/Rh O Positive Antibody Screen NEGATIVE Crossmatch See Detail
--- NOTE | 2021-07-18 13:41 | PDOC.CMPRO ---
- If Service Date Differs Date of service: 07/18/21 Time of Service: 13:41 Care Management Progress Note S/O: Chandni was lying in bed when CM met with her. She was receiving a blood transfusion, which she hopes will resolve her anemia. She expressed frustration with not being able to walk around, as she is concerned about this being a set back with the progress she has made with her knee post surgically. Per report, she worked with PT today, who recommend out patient PT upon discharge. Chandni stated that she has updated her family, but that her son, Ton, may call her RN later for an update. CM will continue to follow. A: Chandni is an 81 year old female admitted to [facility] on 07/16/21 with CHF, anemia. P: Anticipate Chandni will return home once medically cleared by . She will resume services, which CM will coordinate. Her family will drive her home via private vehicle when ready. She will follow up with her PCP and discharge plan of care. CM will continue to follow.
[2021-07-18] MEDS: Acetaminophen 325 MG TAB 650 MG PO ×2 (13:45→21:03)
--- NOTE | 2021-07-18 15:40 | IN_ITS ---
Date of service: 07/18/21 Time of Service: 15:40 PT Notes Visit Reasons: CHF,Anemia Physical Therapy Inpatient Initial Evaluation Date: 07/18/2021 Referring Doctor: Darin Collins MD; KANCHAN Wang PT Orders: PT CONSULT: Eval/Treat Precautions: Fall. Standard. WBAT on the left LE with AD. Patient Profile/Admitting Diagnosis: Lyubov is a 81-year-old female with total knee arthroplasty prosthesis loosening status post left total knee arthroplasty revision on postoperative week 2 who presented to the ED on 07/16/20201921 lower abdominal pain, loose stools, and increased lower extremity edema. Patient is diagnosed with chronic diastolic congestive heart failure, anemia, paroxysmal atrial fibrillation, and incisional hernia. PMHX: Medical History Atrial fibrillation Chronic diastolic CHF (congestive heart failure) CKD (chronic kidney disease), stage III Depression Diverticulosis of colon DNI (do not intubate) DNR (do not resuscitate) Fibromyalgia Gastroesophageal reflux Goals of care, counseling/discussion History of tobacco use Hydronephrosis Hyperlipidemia Hypertension Intestinal adhesions Normocytic anemia NSTEMI (non-ST elevated myocardial infarction) pt. 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 POLST (Physician Orders for Life-Sustaining Treatment) done 02/16/20 Pulmonary hypertension Respiratory infection Systemic lupus erythematosus [place] [facility] [place] History History of hysterectomy History of partial colectomy partial bowel resection-colectomy with colosotmy ad reversal, abdominal adhesions History of surgical removal of ganglion cyst both wrists History of tonsillectomy and adenoidectomy History of total right knee replacement (TKR) Hx of bilateral cataract extraction Hx of section Hx of knee surgery S/p bilateral carpal tunnel release Status post total left knee replacement (~1999) Social History/Home Situation: Lives with son and [id number] in a private home with 2 steps to enter with 1 rail. Independent with all mobility ADL performance without AD prior to surgery although she states that she had increasing difficulty with ambulation performance leading up to surgery. 8 falls in the past year, with patient having tendency to fall forward. Equipment Owned/DME: FWW Subjective: Agreeable to PT consult. Feels a lot better. Denies headache, chest pain, and dizziness throughout session. Does report of no bowel movement for 2 days now. States that she has fallen twice since her discharge from this hospital on 07/04/2021. Objective: General Observation: Supine in bed. ABD pads with NANDO wraps to left LE. IV in the right UE. Mental Status: Alert and oriented as to person, place, time, and purpose. Able to pay attention, focus, and respond appropriately. Pain: Denies ROM: Right Lower Extremity: Hip flexion WFL. Hip abduction WFL. Knee flexion 20 degrees to 90 degrees. Knee extension - 20 degrees. Ankle dorsiflexion WFL. Ankle plantarflexion WFL. Left Lower Extremity: Hip flexion WFL. Hip abduction WFL. Knee flexion WFL. Ankle dorsiflexion WFL. Ankle plantarflexion WFL. Strength: Right Lower Extremity: Hip flexors 5/5. Hip abductors 5/5. Knee flexors 3-/5. Knee extensors 3-/5. Ankle dorsiflexors 5/5. Ankle plantarflexors 5/5. Left Lower Extremity: Hip flexors 5/5. Hip abductors 5/5. Knee flexors 4-/5. Knee extensors 4-/5. Ankle dorsiflexors 5/5. Ankle plantarflexors 5/5. Bed Mobility/Transfers: Supine to sit supervision with HOB at 30 degrees Sit to stand standby assist Stand to sit standby assist Bed to reclining chair standby assist Gait: Instructed patient with level surface ambulation of about 120 feet requiring standby assist with wheelchair follow. Kelin decreased. Step height on the left decreased. Step length on the left decreased. Denies headache, chest pain, and dizziness. Step through gait pattern. Denies headache, chest pain, and dizziness throughout ambulation activity. Denies pain in the left knee. Feels stable on the left knee. Denies abdominal pain. Verbalizes that she has gone back due to what has been happening. Hopes to go back home as soon as it is safe to do so. Balance: Static Sitting: Normal Dynamic Sitting: Normal Static Standing: Fair Dynamic Standing: Fair Special Tests: Mobility Limitations Standardized Measure [facility]-PAC 6 clicks Basic Mobility Inpatient Short Form: Raw Score: 23 CMS Score: 11% deficit Informed Consent/Education: Patient was instructed in purpose of PT consult and plan of care. Agreeable to proceed with established PT POC to achieve personal goals. Assessment: Repeated falls seems to be worrisome and may be contributory to increased bleeding in L knee. Will defer to orthopedic surgeon and hospitalist for further examination and testing. L knee active range of motion decreased since last seen. Lyubov is a 81-year-old female with total knee arthroplasty prosthesis loosening status post left total knee arthroplasty revision on postoperative week 2 who presented to the ED on 07/16/2020 1922 lower abdominal pain, loose stools, and increased lower extremity edema. Patient is diagnosed with chronic diastolic congestive heart failure, anemia, paroxysmal atrial fibrillation, and incisional hernia. Patient presents with clinical signs and symptoms consistent with current/admitting diagnoses that have resulted to mobility limitations, gait instability, generalized weakness, and overall ADL decline as demonstrated by the following impairment level findings: 1. Decreased strength to left knee major muscle groups 2. Impaired standing balance 3. Impaired activity tolerance 4. Limitation of joint range of motion in left knee Impairments are contributing to the following functional limitations: 1. Difficulty with ambulation without assistive device and physical assistance 2. Increased completion time for mobility ADL performance 3. Increased risk for falls 4. Difficulty with managing steps alone safely Patient is assessed as a 34795 complexity based on the following: History: 80-year-old female with past medical history as indicated above Examination: Demonstrable impairment in strength, balance, and mobility level with underlying impairments and functional limitations as exhibited above as well as deficit score of a fall 1947 % utilizing the [facility] Mobility Inpatient Short Form Presentation: Evolving Decision Makin moderate complexity Goals: Goals X1 week 1. Supine-Sit independent 2. Sit-Supine independent 3. Sit-Stand independent 4. Stand-Sit independent with FWW 5. Bed-Chair independent with FWW 6. Chair-Bed independent with FWW 7. Independent gait on level surface with use of FWW for at least 100 feet without report of pain nor dyspnea 8. Independent stair negotiation while holding onto 1 rail for at least 2 steps without report of pain nor dyspnea 9. Independent with home exercise program 10. Good static and dynamic standing balance/tolerance Plan of Care/Treatment Plan: 1-2x/day, 7 days/week x 1 week. Plan of care has been reviewed with the [employer] SAL[employer] MANAGER providing the service under Physical Therapy direction. Initiate Physical Therapy intervention for pain management as needed, strengthening, bed mobility, transfers, gait, stairs, balance training, and use of assistive device. DISCHARGE RECOMMENDATIONS: Home when medically cleared by her surgeon. Outpatient PT services to facilitate return to independent community ambulation without an assistive device. TREATMENT CODE/TIME: 16255 x 25 minutes beginning at 15:40 PM. Thank you for the opportunity to participate in the care of this patient. Milana Byrd PT, DPT, CLT [facility] [place], [place]
--- NOTE | 2021-07-18 18:30 | NUR.NOTE ---
Nursing Note: Prior to the start of the blood transfusion patient was noted to have a temp of 38.4. T max was 38.5 1 hour after the start of the infusion tylenol was given. temp was noted to be down 90 minutes later at 37.6
--- NOTE | 2021-07-18 18:32 | NUR.NOTE ---
Nursing Note: addendum to previous note .blood cultures ordered
--- NOTE | 2021-07-18 19:21 | W.PM.PROGNOT ---
Date of Service Date of service: 07/18/21 Time of Service: 12:11 Assessment and Plan Assessment and plan (1) Chronic diastolic CHF (congestive heart failure): Status: Acute Assessment and plan: Presented with SOA. Likely exacerbation secondary to anemia. Given Lasix 80mg IV in the ED. Diuresing well. Lasix 20mg given yesterday. Monitoring creatinine which has gone from 3.2 to 3.0 and now down to 2.6. (2) Anemia: Status: Chronic Assessment and plan: Hgb 6.9 >7.1>8.0>7.4 Stool was heme neg in ED Cont to hold coumadin that has been held since prior to R knee revision. Transfuse 1 unit RBCs. Monitor. Ortho following. Blood loss likely into the knee. (3) Paroxysmal atrial fibrillation: Status: Chronic Assessment and plan: Holding coumadin Cont amiodarone and metoprolol. Rate controlled. (4) Incisional hernia: Status: Acute Assessment and plan: Reduced in the ED by Dr Peace / gen surg. Qualifiers: Obstruction and gangrene presence: without obstruction or gangrene Qualified Code(s): K43.2 - Incisional hernia without obstruction or gangrene (5) History of arthroplasty of left knee: Status: Acute Assessment and plan: Ortho following. PT. (6) UTI (urinary tract infection): Status: Acute Assessment and plan: Fever and Procal of 0.1. W/u included UA that is positive. Blood cultures and urine cx obtained. Rocephin initiated. If urine culture is negative, infection of the knee joint would need to be considered further. Subjective Subjective Patient reports: tolerating a regular diet and fever (T of 38.5.); denies nausea, vomiting and shortness of breath Interval history since last seen: Ongoing swelling of left knee with increased bleeding from the surgical site. Exam Const General: cooperative and no acute distress Nutritional Appearance: obese Orientation: alert and oriented x3 Resp Effort & Inspection: normal respiratory effort Auscultation: clear to auscultation bilaterally Cardio Rate: regular rate Rhythm: regular rhythm Heart Sounds: S1 normal and S2 normal GI Inspection: other (Hernia at previous ostomy site; not incarcerated) Palpation: soft and nontender Skin General skin exam: ecchymosis Rashes: no rashes Extrem General: no calf tenderness and pedal edema bilaterally Knee images: 1. Swelling. Bandage in place. Objective Last Vital Signs Temp 37.6 C H 07/18/21 15:29 Pulse 60 07/18/21 15:29 Resp 18 07/18/21 15:29 BP 125/46 L 07/18/21 15:29 Pulse Ox 96 07/18/21 15:29 Laboratory Results - last 24 hr 07/18/21 07/18/21 07/18/21 06:12 06:12 06:12 WBC 19.36 H RBC 2.40 L Hgb 7.4 L Hct 23.8 L MCV 99.2 H MCH 30.8 MCHC 31.1 L RDW 15.5 H Plt Count 362 MPV 9.6 Immature Gran % 0.7 Neutrophils % 85.5 Lymphocytes % 5.7 Monocytes % 7.4 Eosinophils % 0.6 Basophils % 0.1 Nucleated RBC % 0 Absolute Neutrophils 16.55 H Absolute Lymphocytes 1.10 L Absolute Monocytes 1.43 H Absolute Eosinophils 0.12 Absolute Basophils 0.02 Sodium 141 Potassium 4.5 Chloride 105 Carbon Dioxide 30.1 Anion Gap 5.9 BUN 40 H D Creatinine 2.6 H Estimated GFR/1.73 m2 17.71 Glucose 97 Calcium 8.6 Procalcitonin 0.1 Urine Color Urine Clarity Urine pH Ur Specific Lequire Urine Protein Urine Ketones Urine Blood Urine Nitrite Urine Bilirubin Urine Urobilinogen Ur Leukocyte Esterase Urine RBC Urine WBC Ur Epithelial Cells Urine Crystals Urine Bacteria Urine Casts Urine Mucus Urine Other Ur Culture Indicated? Urine Glucose Patient ABO/Rh Antibody Screen Crossmatch 07/18/21 07/18/21 10:43 11:05 WBC RBC Hgb Hct MCV MCH MCHC RDW Plt Count MPV Immature Gran % Neutrophils % Lymphocytes % Monocytes % Eosinophils % Basophils % Nucleated RBC % Absolute Neutrophils Absolute Lymphocytes Absolute Monocytes Absolute Eosinophils Absolute Basophils Sodium Potassium Chloride Carbon Dioxide Anion Gap BUN Creatinine Estimated GFR/1.73 m2 Glucose Calcium Procalcitonin Urine Color Yellow Urine Clarity Clear Urine pH 7.0 Ur Specific Lequire 1.015 Urine Protein Negative Urine Ketones Negative Urine Blood Negative Urine Nitrite Negative Urine Bilirubin Negative Urine Urobilinogen 0.2 Ur Leukocyte Esterase Trace H Urine RBC 0-2 Urine WBC 20-50 H Ur Epithelial Cells Rare Urine Crystals Negative Urine Bacteria Many Urine Casts Negative Urine Mucus Negative Urine Other Few Transitional Ur Culture Indicated? Yes Urine Glucose Negative Patient ABO/Rh O Positive Antibody Screen NEGATIVE Crossmatch See Detail
[2021-07-18] MEDS: Atorvastatin 20 MG TAB PO (21:01)
[2021-07-18] MEDS: traMADol 50 MG TAB PO (21:04)
[2021-07-19 03:38] VITALS: BP 136/70; PULSE 63; RESP 19; TEMP 36.3; O2SAT 96
[2021-07-19 07:22] LABS: Abs Immature Grans 0.09 10^3/uL (0.0-0.06); Absolute Basophil Count 0.02 10^3/uL (0.0-0.2); Absolute Neutrophil Count 13.98 10^3/uL (1.2-6.7); Basophils % 0.1; Eosinophils % 1.4; HCT 24.4 % (36.0-46.0); HGB 7.7 g/dL (11.2-15.7); Immature Grans % 0.5; Lymphocytes % 7.4; MCH 31.4 pg (27.0-33.0); MCHC 31.6 % (32.0-36.0); MCV 99.6 fL (80-95); MPV 9.5 fL (8.0-11.0); Monocytes % 7.7; Neutrophils % 82.9; Nucleated RBC 0 %; Platelet Count 343 10^3/uL (130-400); RBC 2.45 10^6/uL (3.93-5.22); RDW 15.7 % (11.7-14.6); RDW-SD 56.7 fL; WBC 16.86 10^3/uL (4.4-10.8)
[2021-07-19 07:31] LABS: Anion Gap 9.2 mmol/L (3-11); BUN 34 mg/dL (7-18); CO2 27.8 mmol/L (21.0-32.0); CREATININE 2.2 mg/dL (0.55-1.02); Calcium 8.3 mg/dL (8.5-10.1); Chloride 104 mmol/L (98-107); Estimated GFR 21.48 (mL/min/1.73m2); Glucose 105 mg/dL (74-106); Potassium 4.2 mmol/L (3.5-5.1); Sodium 141 mmol/L (136-145)
[2021-07-19 07:39] LABS: Absolute Eosinophil Count 0.24 10^3/uL (0.0-0.7); Absolute Lymphocyte Count 1.25 10^3/uL (1.2-3.4)
[2021-07-19 07:52] VITALS: BP 151/72; PULSE 60; RESP 18; TEMP 37; O2SAT 94
[2021-07-19 08:05] LABS: Diff Comment Diff Reviewed; Polychromasia Present
[2021-07-19] MEDS: Polyethylene Glycol 3350 17 GM PACKET PO (08:45)
[2021-07-19] MEDS: Furosemide 20 MG/2 ML VIAL IVP (08:46)
[2021-07-19] MEDS: Amiodarone 200 MG TAB PO (08:46)
[2021-07-19] MEDS: Normal Saline Flush 10 ML SYR IVP (08:46)
[2021-07-19] MEDS: Ferrous Sulfate 325 MG TAB PO (08:47)
[2021-07-19] MEDS: hydrALAZINE 10 MG TAB PO (08:47)
[2021-07-19] MEDS: Metoprolol CR 50 MG TABCR PO (08:47)
[2021-07-19] MEDS: Hydroxychloroquine 200 MG TAB PO (08:47)
[2021-07-19] MEDS: Docusate Sodium 100 MG CAP 200 MG PO (10:34)
[2021-07-19] MEDS: cefTRIAXone 2 GM/50 ML BAG IVPB (12:15)
--- NOTE | 2021-07-19 14:20 | PT.INTREAT ---
Date of service: 07/19/21 Time of Service: 10:02 PT Notes Visit Reasons: CHF,Anemia Inpatient Physical Therapy Treatment Note [facility] Date: 07/19/2021 PRECAUTIONS: WBAT L, monitor Hgb SUBJECTIVE: Chandni is pleasant and agreeable to participating in PT. She states that she feels swollen today, and is hopeful that she can discharge to home soon. OBJECTIVE: PAIN: No c/o pain BED MOBILITY/TRANSFERS Sit-stand: I Stand-sit: I Bed-Chair: I Chair-bed: I GAIT Assistive Device: FWW Weight bearing: WBAT L Assist: S Distance: 250' THEREX: Patient was instructed in a LE strengthening and stabilization program, completed in both long-sitting and seated positions, as per flow sheet. STAIRS: Up/down 3x4 and 2x6 using B rails and a step-to pattern independently. ASSESSMENT: Patient tolerated session well without complaint. She demonstrates independence with transfers, short-distance ambulation with FWW, as well as with stair negotiation at this time. Following discussion with nursing, patient cleared to be independent with bed mobility, transfers, and short-distance ambulation in room at this time. PLAN: Continue with gait training and LE strengthening for improved mobility post TKA. TREATMENT CODE/TIME: 29 minutes; [id number], [id number] (10:02)
--- NOTE | 2021-07-19 14:40 | W.PM.DS.N ---
Date of service: 07/19/21 Time of Service: 14:40 DS: Diagnosis Discharge Diagnosis (1) Chronic diastolic CHF (congestive heart failure): Status: Acute (2) Anemia: Status: Chronic (3) Paroxysmal atrial fibrillation: Status: Chronic (4) Incisional hernia: Status: Acute (5) History of arthroplasty of left knee: Status: Acute (6) UTI (urinary tract infection): Status: Acute Discharge Plan Disposition Patient Disposition: HOME W/HOME HEALTH SERVICE Condition: Good Discharge Details Reason For Visit: CHF,Anemia, UTI Admit Date/Time: 07/16/21 20:44 Admit Provider: Matheus Melo Attending Provider: Matheus Melo Primary Care Provider: Lyubov Tee V Hospital Course Hospital Course: This is an 81 female with multiple problems, including AF, CHF -- she is 10 days s/p left TKR, seen here [address] MAG[address] with some bleeding from wound and elevated INR. Hct down to 22 at time, from priscilla-op level of 30. Coumadin held, started on iron. She returned to the ED due to RLQ pain, found to have incarcerated hernia which was reduced in ER, pain resolved. However, has ongoing issues with worsening SOB and LE swelling. In ER findings of note for hem neg stool, INR 1.9, HCT 23, Hgb 6.9. BNP>6000, worsening azotemia, neg trop and no ischemic changes on EKG. Patient denied CP. Not SOB at the moment but does endorse SANCHEZ and orthopnea. Stools were black, but only since starting the iron the other day. Her Hgb improved to 8 after diureses, then decreased to 7.1. She was transfused 1 unit RBCs and Hgb on day of discharge was 7.7. Dr. Gipson who performed her knee surgery evaluated the patient on the day of discharge and plans to f/u the following week in the office. She walked in the hallway with PT; unassisted. She was stable and had no significant pain with ambulation. Her urine was positive and growing E.Coli; final sensitivities pending. Her WBC count was improving on ceftriaxone. She will complete a 5 day course of Keflex 500mg TID as an outpt. Home Meds and New Rx's Prescriptions: New cephalexin 500 mg capsule 500 mg PO TID Qty: 15 RF: 0 Continued hydroxychloroquine 200 mg tablet 200 mg PO DAILY RF: 0 metoprolol succinate 50 mg tablet extended release 24 hr 50 mg PO DAILY RF: 0 pramipexole 0.25 mg tablet 0.125 - 0.5 mg PO QHS RF: 0 famotidine 20 mg tablet 20 mg PO .COMPLEX RF: 0 warfarin 5 mg tablet 5 mg PO DAILY Qty: 0 RF: 0 Savella 50 MG tablet 50 mg PO BID RF: 0 tramadol [Ultram] 50 mg tablet 50 mg PO HS PRNRF: 0 atorvastatin [Lipitor] 20 mg Tablet 20 mg PO HS RF: 0 amiodarone [Pacerone] 200 mg Tablet 200 mg PO DAILY Qty: 0 RF: 0 polyethylene glycol 3350 [Miralax] 17 gram Powder In Packet 17 g PO DAILY RF: 0 albuterol sulfate [ProAir HFA] 90 mcg/actuation Hfa Aerosol Inhaler 90 mcg INHALATION DAILY RF: 0 furosemide 40 mg Tablet 40 - 80 mg PO DIRECTED RF: 0 celecoxib [Celebrex] 200 mg capsule 200 mg PO BID Qty: 60 RF: 0 acetaminophen [Tylenol Extra Strength] 500 mg tablet 500 mg PO Q6H PRNQty: 90 RF: 0 pantoprazole [Protonix] 40 mg tablet,delayed release (DR/EC) 40 mg PO DAILY Qty: 30 RF: 0 gabapentin 300 mg capsule 300 mg PO QHS Qty: 14 RF: 0 docusate calcium 240 mg Capsule 240 mg PO BID RF: 0 meclizine 12.5 mg tablet 12.5 mg PO BID PRNRF: 0 hydralazine 10 mg tablet 10 mg PO BID RF: 0 albuterol sulfate 2.5 mg /3 mL (0.083 %) Solution For Nebulization 2.5 mg inhalation Q4H PRNRF: 0 ferrous sulfate [iron] 325 mg (65 mg iron) tablet 324 mg PO DAILY RF: 0 Discontinued cephalexin 500 mg capsule 500 mg PO TID PRNRF: 0 Discharge Instructions Instructions: Urinary Tract Infection in Women (DC) Additional Instructions: Resume home health services. Activity:: Activity as Tolerated Equipment/Supplies:: No Equipment Needed Diet:: Resume usual diet Discharge Orders Discharge Orders: Discharge Order (Routine); Ordered 07/19/21 Ordered By: Darin Collins DS: Summary Time Spent with Patient providing and/or coordinating discharge services: Greater than 30 minutes Status at Discharge Functional status at discharge: independent ambulation Overall status at discharge: patient is progressing back to baseline Mental Status: mental status grossly normal Speech and Movement: speech and movement normal Mood: congruent mood Affect: normal affect Exam Psych Mental Status: mental status grossly normal Speech and Movement: speech and movement normal Mood: congruent mood Affect: normal affect DS: Data Vitals/I&O Vitals and I&O: Vital Signs Temperature 37.0 C 07/19/21 07:52 Temperature Source Tympanic 07/19/21 07:52 Pulse 60 07/19/21 07:52 Pulse Rhythm Regular 07/19/21 11:07 Pulse 74 07/16/21 20:31 Respiratory Rate 18 07/19/21 07:52 Respiratory Effort Non-Labored 07/19/21 11:07 Respiratory Depth Normal 07/19/21 11:07 Respiratory Pattern Normal 07/19/21 11:07 Blood Pressure 151/72 H 07/19/21 07:52 Blood Pressure Mean 93 07/16/21 20:31 Blood Pressure Position Sitting 07/16/21 15:29 Pulse Oximetry 94 07/19/21 07:52 Oxygen Delivery Method Room Air 07/19/21 07:52 Oxygen Flow Rate 0 07/19/21 07:52 Pain Level 0 07/19/21 07:52 Comment 07/17/21 16:55 Intake & Output 07/18/21 07/19/21 07/19/21 23:59 11:59 23:59 Intake Total 1425 / 1425 Output Total 400 / 1250 1750 / 1750 Balance 1025 / 175 -1750 / -1750 Weight 100.7 kg Intake: IV 50 / 50 Oral 840 / 840 Blood Product 500 / 500 Rbc Leuko Reduced Unit 500 / 500 [id number] Other 35 / 35 Rbc Leuko Reduced Unit 35 / 35 [id number] Output: Urine 400 / 1250 1750 / 1750 Other: Urine Color Yellow Straw Urine Appearance Clear Clear Urine Odor Normal Voiding Methods Bedside Commode Toilet Data Completed and Pending Labs on day of discharge: Labs from last 24 hours 07/19/21 07/19/21 07/18/21 06:50 06:50 10:43 WBC 16.86 H RBC 2.45 L Hgb 7.7 L Hct 24.4 L MCV 99.6 H MCH 31.4 MCHC 31.6 L RDW 15.7 H Plt Count 343 MPV 9.5 Immature Gran % 0.5 Neutrophils % 82.9 Lymphocytes % 7.4 Monocytes % 7.7 Eosinophils % 1.4 Basophils % 0.1 Nucleated RBC % 0 Absolute Neutrophils 13.98 H Absolute Lymphocytes 1.25 Absolute Monocytes 1.30 H Absolute Eosinophils 0.24 Absolute Basophils 0.02 RBC Morphology See Below Polychromasia Present Sodium 141 Potassium 4.2 Chloride 104 Carbon Dioxide 27.8 Anion Gap 9.2 BUN 34 H Creatinine 2.2 H Estimated GFR/1.73 m2 21.48 Glucose 105 Calcium 8.3 L Crossmatch See Detail 07/18/21 22:20 Blood Blood Culture - Pending 07/18/21 18:15 Blood Blood Culture - Pending Preliminary micro results at discharge 07/18/21 11:05 Urine Culture - Preliminary Urine - Reflex from Ua Escherichia coli 07/18/21 22:20 Blood Culture - Pending Blood 07/18/21 18:15 Blood Culture - Pending Blood [facility] Medical History Atrial fibrillation Chronic diastolic CHF (congestive heart failure) CKD (chronic kidney disease), stage III Depression Diverticulosis of colon DNI (do not intubate) DNR (do not resuscitate) Fibromyalgia Gastroesophageal reflux Goals of care, counseling/discussion 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 POLST (Physician Orders for Life-Sustaining Treatment) done 02/16/20 Pulmonary hypertension Respiratory infection Systemic lupus erythematosus F/U with / Ramona @ [facility] Surgical History History of hysterectomy History of partial colectomy partial bowel resection-colectomy with colosotmy ad reversal, abdominal adhesions History of surgical removal of ganglion cyst both wrists History of tonsillectomy and adenoidectomy History of total right knee replacement (TKR) Hx of bilateral cataract extraction Hx of section Hx of knee surgery S/p bilateral carpal tunnel release Status post total left knee replacement (~1999) Family History Father Heart disease Diabetes Mother Heart disease Hypertension Son Diabetes Granddaughter No problems noted. Granddaughter No problems noted. Daughter Hemochromatosis Social History Smoking/Tobacco Use Status: Former Tobacco Use Quit Date: 10/20/89 Smoking risk assessment performed?: Yes Alcohol Intake: current Alcohol Intake frequency: holidays/special occasions only Drug use: Never Substance use type: does not use Caregiver/Support person: No Household members: none Housing: house Communication Needs: Hard of Hearing and Corrective Lenses Education Level: high school Do you need help understanding health information?: Always How often do you talk on the phone with friends or family?: three or more times per week How often do you get together with friends or relatives?: three or more times per week Panel score (0-1 are the most socially isolated patients): 1 What type of physical activity do you participate in: walking and sedentary lifestyle Duration: < 15 minutes/day Special marci needs: No Seatbelt use: always Do you feel safe at home: Yes Do you feel safe in your relationship?: Yes
[2021-07-19] MEDS: traMADol 50 MG TAB PO (15:00)
--- NOTE | 2021-07-19 16:42 | PDOC.CMDIS ---
- If Service Date Differs Date of service: 07/19/21 Time of Service: 16:42 LACE Index Scoring Tool - Questions: Length of Stay (in days): 3 Acuity (Admit via E.D.?): Yes Comorbidities: Congestive Heart Failure E.D. Visits: 3 - Answers: Total Score: 11 Risk of Readmission: High Risk Care Management Discharge Reason for Hospitalization: CHF, anemia Discharge Plan: Chandni will return home today with a resumption of [facility] RN, PT. She will be driven home via private vehicle by family. She will follow up with her PCP and discharge plan of care. She is happy to be going home. Patient/Family Education Needs: Review discharge instructions regarding activity levels and medications, discussion of self care needs including ask me three. Services Needed at Discharge: Home Health Care Services (resume HH RN, PT)
--- NOTE | 2021-07-19 19:00 | INDS_ITS ---
Date of service: 07/19/21 PT Notes Visit Reasons: CHF,Anemia, UTI Physical Therapy Inpatient Discharge Summary Date: 07/19/2021 Dates of service: 07/18/2021 through 07/19/2021 This is a clinical summary of care provided for the duration of dates listed above. No charge was made in the completion of this documentation. Referring Doctor: Darin Collins MD; KANCHAN Wang PT Orders: PT CONSULT: Eval/Treat Precautions: Fall. Standard. WBAT on the left LE with AD. Patient Profile/Admitting Diagnosis: Lyubov is a 81-year-old female with total knee arthroplasty prosthesis loosening status post left total knee arthroplasty revision on postoperative week 2 who presented to the ED on 07/16/20201921 lower abdominal pain, loose stools, and increased lower extremity edema. Patient is diagnosed with chronic diastolic congestive heart failure, anemia, paroxysmal atrial fibrillation, and incisional hernia. PMHX: Medical History Atrial fibrillation Chronic diastolic CHF (congestive heart failure) CKD (chronic kidney disease), stage III Depression Diverticulosis of colon DNI (do not intubate) DNR (do not resuscitate) Fibromyalgia Gastroesophageal reflux Goals of care, counseling/discussion History of tobacco use Hydronephrosis Hyperlipidemia Hypertension Intestinal adhesions Normocytic anemia NSTEMI (non-ST elevated myocardial infarction) pt. 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 POLST (Physician Orders for Life-Sustaining Treatment) done 02/16/20 Pulmonary hypertension Respiratory infection Systemic lupus erythematosus F/U with / Ramona @ [facility] [place] Surgical History History of hysterectomy History of partial colectomy partial bowel resection-colectomy with colosotmy ad reversal, abdominal adhesions History of surgical removal of ganglion cyst both wrists History of tonsillectomy and adenoidectomy History of total right knee replacement (TKR) Hx of bilateral cataract extraction Hx of section Hx of knee surgery S/p bilateral carpal tunnel release Status post total left knee replacement (~1999) Social History/Home Situation: Lives with son and [id number] in a private home with 2 steps to enter with 1 rail. Independent with all mobility ADL performance without AD prior to surgery although she states that she had increasing difficulty with ambulation performance leading up to surgery. 8 falls in the past year, with patient having tendency to fall forward. Equipment Owned/DME: FWW Subjective: NT. See most recent [employer] [employer] notes. Objective: General Observation: NT. See most recent [employer] [employer] notes. Mental Status: NT. See most recent [employer] [employer] notes. Pain: NT. See most recent [employer] [employer] notes. ROM: Right Lower Extremity: Hip flexion WFL. Hip abduction WFL. Knee flexion 20 degrees to 90 degrees. Knee extension - 20 degrees. Ankle dorsiflexion WFL. Ankle plantarflexion WFL. Left Lower Extremity: Hip flexion WFL. Hip abduction WFL. Knee flexion WFL. Ankle dorsiflexion WFL. Ankle plantarflexion WFL. Strength: Right Lower Extremity: Hip flexors 5/5. Hip abductors 5/5. Knee flexors 3-/5. Knee extensors 3-/5. Ankle dorsiflexors 5/5. Ankle plantarflexors 5/5. Left Lower Extremity: Hip flexors 5/5. Hip abductors 5/5. Knee flexors 4-/5. Knee extensors 4-/5. Ankle dorsiflexors 5/5. Ankle plantarflexors 5/5. Bed Mobility/Transfers: Supine to sit independent Sit to stand independent Stand to sit independent Bed to reclining chair independent Gait: 250 feet with supervision using the FWW. Balance: Static Sitting: Normal Dynamic Sitting: Normal Static Standing: Fair Dynamic Standing: Fair Assessment: Will defer to orthopedic surgeon and hospitalist for further examination and testing. L knee active range of motion decreased since last seen. Lyubov is a 81-year-old female with total knee arthroplasty prosthesis loosening status post left total knee arthroplasty revision on postoperative week 2 who presented to the ED on 07/16/20201921 lower abdominal pain, loose stools, and increased lower extremity edema. Patient is diagnosed with chronic diastolic congestive heart failure, anemia, paroxysmal atrial fibrillation, and incisional hernia. Patient presents with clinical signs and symptoms consistent with current/admitting diagnoses that have resulted to mobility limitations, gait instability, generalized weakness, and overall ADL decline as demonstrated by the following impairment level findings: 1. Decreased strength to left knee major muscle groups 2. Impaired standing balance 3. Impaired activity tolerance 4. Limitation of joint range of motion in left knee Impairments are contributing to the following functional limitations: 1. Difficulty with ambulation without assistive device 2. Increased risk for falls Goals: Goals X1 week 1. Supine-Sit independent MET 2. Sit-Supine independent MET 3. Sit-Stand independent MET 4. Stand-Sit independent with FWW MET 5. Bed-Chair independent with FWW MET 6. Chair-Bed independent with FWW MET 7. Independent gait on level surface with use of FWW for at least 100 feet w ithout report of pain nor dyspnea NOT MET 8. Independent stair negotiation while holding onto 1 rail for at least 2 steps without report of pain nor dyspnea NOT MET 9. Independent with home exercise program NOT MET 10. Good static and dynamic standing balance/tolerance NOT MET DISCHARGE RECOMMENDATIONS: Home when medically cleared by her surgeon. Outpatient PT services to facilitate return to independent community ambulation without an assistive device. TREATMENT CODE/TIME: NV Thank you for the opportunity to participate in the care of this patient. Milana Byrd PT, DPT, CLT [facility] [place], [place]
== END 2021-07-19 15:52 | disposition home health service (06) | DRG 291 ==
LOC: ER 20:52 → MS 22:25
PROVIDERS: Family Medicine; Student in an Organized Health Care Education/Training Program; Admitting Provider General Practice; Emergency Provider Physician Assistant; PCP Family Medicine; Visit Provider General Practice
DX: I13.0 Hypertensive heart and chronic kidney disease with heart failure and stage 1 through stage 4 chronic kidney disease, or unspecified chronic kidney disease (principal); I50.33 Acute on chronic diastolic (congestive) heart failure; N17.9 Acute kidney failure, unspecified; N39.0 Urinary tract infection, site not specified; D64.9 Anemia, unspecified; N18.30 Chronic kidney disease, stage 3 unspecified; F32.9 Major depressive disorder, single episode, unspecified; K57.30 Diverticulosis of large intestine without perforation or abscess without bleeding; Z66 Do not resuscitate; K21.9 Gastro-esophageal reflux disease without esophagitis; M79.7 Fibromyalgia; Z87.891 Personal history of nicotine dependence; E78.5 Hyperlipidemia, unspecified; I25.2 Old myocardial infarction; I27.20 Pulmonary hypertension, unspecified; M32.9 Systemic lupus erythematosus, unspecified; Z96.653 Presence of artificial knee joint, bilateral; K43.2 Incisional hernia without obstruction or gangrene; I48.0 Paroxysmal atrial fibrillation; Z20.822 Contact with and (suspected) exposure to COVID-19; B96.20 Unspecified Escherichia coli [E. coli] as the cause of diseases classified elsewhere
CPT/HCPCS: 36415; 76881; 80048; 80053; 84145; 86850; 86900; 86901; 86920; 87040; 87077; 87635; 90662; 93005; 97110; 97162; 97530; 99221; 99222; 99232; 99285; 71046; 81003; 81015; 83735; 83880; 84484; 85014; 85018; 85025; 85610; 85730; 87086; 87186; 93010; 99233; 99239; J1940; J1941; P9016

== ENCOUNTER → 2021-07-23 13:28 | Outpatient (BNVA) | payer MEDICARE, OTHER, SELFPAY | PROVIDERS: PCP Family Medicine; Referring Provider Family Medicine | DX: Z47.1 Aftercare following joint replacement surgery (principal); Z96.652 Presence of left artificial knee joint ==

== ENCOUNTER → 2021-07-26 13:19 | Outpatient (BNVA) | payer MEDICARE, OTHER, SELFPAY | PROVIDERS: PCP Family Medicine; Referring Provider Family Medicine | DX: Z47.1 Aftercare following joint replacement surgery (principal); Z96.652 Presence of left artificial knee joint ==

== ENCOUNTER → 2021-07-30 09:54 | Outpatient (BNVA) | payer MEDICARE, OTHER, SELFPAY | PROVIDERS: PCP Family Medicine; Referring Provider Family Medicine; Visit Provider Student in an Organized Health Care Education/Training Program | DX: Z47.1 Aftercare following joint replacement surgery (principal); Z96.652 Presence of left artificial knee joint; T81.89XD Other complications of procedures, not elsewhere classified, subsequent encounter ==

== ENCOUNTER 2021-07-30 11:13 | Outpatient (CLI) | payer MEDICARE, OTHER, SELFPAY ==
[2021-07-30 12:30] LABS: Source Nasal/Nares
[2021-07-30 18:07] LABS: COVID-19 PCR Negative (Negative)
== END 2021-07-30 11:14 | disposition home or self-care (01) ==
PROVIDERS: PCP Family Medicine; Visit Provider Student in an Organized Health Care Education/Training Program
DX: Z20.822 Contact with and (suspected) exposure to COVID-19 (principal); Z01.818 Encounter for other preprocedural examination
CPT/HCPCS: 87635

== ENCOUNTER 2021-08-01 12:56 | Day surgery (SDC) | payer MEDICARE, OTHER, SELFPAY ==
[2021-08-01] VITALS (7 sets, daily range): BP systolic 142–167; BP diastolic 51–61; PULSE 52–57; RESP 14–20; TEMP 36–36.4; O2SAT 94–97; BMI 35.8
--- NOTE | 2021-08-01 11:32 | ANES.PREOP_ITS ---
General Info Date of Service Date Performed: 08/01/21 Height: 5 ft 6 in Weight: 100.7 kg Body Mass Index (BMI): 35.8 Surgical Procedure: Operation Date: 08/01/21 15:10 Proposed Procedures Side Surgeon p KNEE WOUND I AND D WITH SECONDARY CLOSURE Left Cordell Gipson MD Meds Allergies and Home Medications Allergies Allergy/AdvReac Type Severity Reaction Status Date / Time Sulfa (Sulfonamide Allergy Verified 08/01/21 13:28 Antibiotics) cat scan dye AdvReac Uncoded 08/01/21 13:28 Home Medication Medication Instructions Recorded Savella 50 mg PO BID 11/24/17 atorvastatin [Lipitor] 20 mg PO HS 05/17/19 polyethylene glycol 3350 [Miralax] 17 g PO DAILY 08/26/19 amiodarone [Pacerone] 200 mg PO DAILY #0 tab 11/14/19 albuterol sulfate [ProAir HFA] 90 mcg INHALATION DAILY 02/13/20 warfarin 5 mg tablet 5 mg PO DAILY #0 tab 07/20/20 hydroxychloroquine 200 mg tablet 200 mg PO DAILY tab 05/31/21 metoprolol succinate 50 mg 50 mg PO DAILY 05/31/21 tablet,extended release 24 hr famotidine 20 mg tablet 20 mg PO .COMPLEX 06/29/21 pramipexole 0.25 mg tablet 0.125 - 0.5 mg PO QHS tab 06/29/21 tramadol 50 mg tablet 50 mg PO HS PRN tab 06/29/21 acetaminophen [Tylenol Extra 500 mg PO Q6H PRN #90 tab 07/04/21 Strength] celecoxib [Celebrex] 200 mg PO BID #60 cap 07/04/21 furosemide 40 - 80 mg PO DIRECTED 07/04/21 gabapentin 300 mg PO QHS #14 cap 07/04/21 pantoprazole [Protonix] 40 mg PO DAILY #30 tab 07/04/21 albuterol sulfate 2.5 mg INHALATION Q4H PRN 07/16/21 docusate calcium 240 mg PO BID 07/16/21 ferrous sulfate [iron] 324 mg PO DAILY 07/16/21 hydralazine 10 mg PO BID 07/16/21 meclizine 12.5 mg PO BID PRN 07/16/21 cephalexin 500 mg PO TID #15 cap 07/19/21 Current Visit Medications: Current Medications Generic Name Dose Route Start Last Admin Trade Name Anthony PRN Reason Stop Dose Admin Ringer's Solution 1,000 mls @ 80 mls/hr 08/01/21 06:00 IV 08/19/21 23:59 [facility] Cefazolin Sodium/Dextrose 2 gm in 50 mls @ 100 mls/hr 08/01/21 06:00 Ancef Duplex IVPB 08/01/21 23:59 PREOP TYE IV Miscellaneous Supplies 1 each 08/01/21 06:00 Iv Access IV 08/19/21 23:59 DIRECTED TYE Sodium Chloride 0 ml 08/01/21 06:00 Normal Saline Flush 10 Ml Syr IV 08/19/21 23:59 PRN PRN Sodium Chloride 0 ml 08/01/21 06:00 Normal Saline 10 Ml Vial IJ 08/19/21 23:59 DIRECTED PRN Sterile Water 0 ml 08/01/21 06:00 Water,Injection,Sterile 10 Ml Vial IJ 08/19/21 23:59 DIRECTED PRN PFSH Active Problems Active Problems: Problem Status Onset Code Draining postoperative wound T81.89XA History of revision of total replacement of left knee joint 07/05/21 Z96.652 History of arthroplasty of left knee Z96.652 Chronic diastolic CHF (congestive heart failure) I50.32 Incisional hernia K43.2 SOB (shortness of breath) R06.02 Anemia D64.9 Hammertoe of second toe of left foot M20.42 Shortness of breath R06.02 Paroxysmal atrial fibrillation I48.0 Hyperlipidemia E78.5 DVT prophylaxis Z29.9 Discharge planning issues Z02.9 Acute on chronic diastolic CHF (congestive heart failure), NYHA class 1 I50.33 Elevated troponin R79.89 Chronic respiratory failure with hypoxia J96.11 Supratherapeutic INR R79.1 Fall W19.XXXA Ambulatory dysfunction R26.2 COVID-19 ruled out Z03.818 Acute and chronic respiratory failure with hypoxia J96.21 Status post total right knee replacement ~1997 Z96.651 UTI (urinary tract infection) N39.0 Hernia K46.9 Cyst of left kidney N28.1 Painful total knee replacement, left T84.84XA, Z96.652 Sensorineural hearing loss, bilateral H90.3 Status post total left knee replacement ~1999 Z96.652 Goals of care, counseling/discussion Z71.89 DNI (do not intubate) Z78.9 DNR (do not resuscitate) Z66 POLST (Physician Orders for Life-Sustaining Treatment) Z78.9 Palliative care patient Z51.5 Normocytic anemia D64.9 Pulmonary hypertension I27.20 Medical History Medical History Atrial fibrillation Chronic diastolic CHF (congestive heart failure) CKD (chronic kidney disease), stage III Depression Diverticulosis of colon DNI (do not intubate) DNR (do not resuscitate) Fibromyalgia Gastroesophageal reflux Goals of care, counseling/discussion 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 POLST (Physician Orders for Life-Sustaining Treatment) done 02/16/20 Pulmonary hypertension Respiratory infection Systemic lupus erythematosus [place] / [place] [facility] [place] History Surgical History (Updated 08/01/21 @ 13:29 by KANCHAN Wang) Draining postoperative wound S/P I& History of hysterectomy History of partial colectomy partial bowel resection-colectomy with colosotmy ad reversal, abdominal adhesions History of surgical removal of ganglion cyst both wrists History of tonsillectomy and adenoidectomy History of total right knee replacement (TKR) Hx of bilateral cataract extraction Hx of section Hx of knee surgery S/p bilateral carpal tunnel release Status post total left knee replacement (~1999) Tobacco Smoking/Tobacco Use Status: Former Tobacco Use Alcohol Alcohol Intake: current Alcohol intake frequency: holidays/special occasions only Substance Use Substance use: Never Substance use type: does not use Vital Signs and Lab Results Lab Results Blood Type / Crossmatch: Patient ABO/Rh O Positive 07/18/21 10:43 07/18/21 Antibody Screen NEGATIVE 07/18/21 10:43 07/18/21 Crossmatch See Detail 07/18/21 10:43 07/18/21 Complete Blood Count: White Blood Count 16.86 10^3/uL (4.4-10.8) H 07/19/21 06:07/19/21 Red Blood Count 2.45 10^6/uL (3.93-5.22) L 07/19/21 06:07/19/21 Hemoglobin 7.7 g/dL (11.2-15.7) L 07/19/21 06:07/19/21 Hematocrit 24.4 % (36.0-46.0) L 07/19/21 06:07/19/21 Platelet Count 343 10^3/uL (130-400) 07/19/21 06:07/19/21 Complete Metabolic Panel: Sodium Level 141 mmol/L (136-145) 07/19/21 06:07/19/21 Potassium Level 4.2 mmol/L (3.5-5.1) 07/19/21 06:07/19/21 Chloride Level 104 mmol/L (98-107) 07/19/21 06:07/19/21 Carbon Dioxide Level 27.8 mmol/L (21.0-32.0) 07/19/21 06:07/19/21 Blood Urea Nitrogen 34 mg/dL (7-18) H 07/19/21 06:07/19/21 Creatinine 2.2 mg/dL (0.55-1.02) H 07/19/21 06:07/19/21 Estimated GFR/1.73 m2 21.48 (mL/min/1.73m2) 07/19/21 06:07/19/21 Magnesium Level 2.7 mg/dL (1.8-2.4) H 07/16/21 18:07/16/21 Calcium Level 8.3 mg/dL (8.5-10.1) L 07/19/21 06:07/19/21 Albumin 3.0 g/dL (3.4-5.0) L 07/16/21 18:07/16/21 Glucose Level 105 mg/dL (74-106) 07/19/21 06:50 07/19/21 Liver Function Panel: Alanine Aminotransferase (ALT/SGPT) 24 U/L (14-59) 07/16/21 18:20 07/16/21 Aspartate Amino Transf (AST/SGOT) 27 U/L (15-37) 07/16/21 18:20 07/16/21 Coagulation Panel: INR International Normalized Ratio 1.9 (0.9-1.1) H 07/17/21 06:40 07/17/21 Prothrombin Time 19.3 sec (9.3-11.0) H 07/17/21 06:40 07/17/21 Activated Partial Thromboplast Time 35.7 sec (21.0-27.5) H 07/16/21 18:20 07/16/21 Cardiac Panel: Troponin I 0.06 ng/mL (<0.06) 07/16/21 21:30 07/16/21 JE-Had-K-Type Natriuretic Peptide 6521 pg/mL (<300) H 07/16/21 18:20 07/16/21 Arterial Blood Gas: No Data to Display Venous Blood Gas: No Data to Display Pancreas Panel: No Data to Display Thyroid Panel: No Data to Display Infectious Disease: Coronavirus (COVID-19)(PCR) Negative (Negative) 07/30/21 12:14 07/30/21 Coronavirus 2019 Source Nasal/Nares 07/30/21 12:14 07/30/21 Blood Cultures: No Data to Display Toxicology Panel: No Data to Display Imaging and Studies Imaging and Studies EKG Summary: 01/02/2021 Conclusion Sinus rhythm...normal P axis, V-rate 60- 99 Prolonged KY interval...KY >220, V-rate 50- 90 Left bundle branch block...QRSd>120, broad/notched R Stress Test Summary: 12/06/2019 Stress ECG Conclusion 1. Electrocardiographically nondiagnostic due to resting EKG abnormalities (LBBB) and an adequate heart rate achieved Echocardiogram Summary: 11/11/2019 Indications: CHF Conclusion Left Ventricle : The left ventricle is normal size. The left ventricular ejection fraction is within the normal range. Mild left ventricular hypertrophy. There is normal LV segmental wall motion but there is paradoxical septal motion. Diastolic function is indeterminate but there is evidence of elevated filling pressures. LVEF is estimated to be 55-60%. Right Ventricle : Right ventricle is mildly dilated. The right ventricular systolic function appears normal. Atria : Left atrium is mild to moderately dilated. Right atrium is mildly dilated. Aortic Valve : Aortic valve is thickened but has adequate excursion. There is no hemodynamically significant aortic stenosis. Trace aortic regurgitation. Mitral Valve : The mitral valve is mildly thickened. Moderate mitral regurgitation. No evidence of mitral valve stenosis. Great Vessels : The IVC is dilated, but collapses >50% with inspiration. Estimated RVSP is 33-41 mmHg. Compared to echocardiogram dated 09/29/2018: There is no significant change. Carotid Artery Summary:: 11/02/2018 IMPRESSION: Mild amount of plaque in the proximal right internal carotid artery. Mild velocity elevation corresponding to 50-60% stenosis. No significant left internal carotid artery stenosis. 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 Clinical correlation recommended. Anesthesia Assessment and Plan Anesthesia History Personal History: No History of Anesthesia Complications Family History: No Family History of Anesthesia Complications Exercise Tolerance Exercise Tolerance: Metabolic Equivalents<4 Pertinent Negatives Pertinent Negatives: No Symptoms of GERD Cardiac & Pulmonary Exam Cardiac Exam: Heart Murmur Present Pulmonary Exam: Clear Bilateral Breath Sounds Airway Exam Known Difficult Airway: No Mallampati Class: 2 Mouth Opening: Normal (> 3cm) Thyromental Distance: Greater than 3 cm Neck Range of Motion: Full ROM Neck Circumference: Normal Teeth Condition: Normal Dentition, Removable Dentures/Plates Upper and Removable Dentures/Plates Lower ASA Classification ASA Score: ASA 3 Emergency Case?: No NPO Status NPO Status: NPO Clears >2 hours, Solids >8 hours Anesthesia Plan Resuscitation Status: DNR/DNI Suspended During Perioperative Period Anesthesia Technique: General Anesthesia Airway Planned: LMA Monitors Used: Standard Monitors
--- NOTE | 2021-08-01 13:28 | PDOC.DSDIS_ITS ---
Documented by User: KANCHAN Wang 08/01/21 13:51 Discharge Plan Disposition Patient Disposition: HOME Condition: Good Discharge Details Reason For Visit: I&D surgical wound left knee Attending Provider: Cordell Gipson Primary Care Provider: Lyubov Tee V Home Meds and New Rx's Prescriptions: New hydrocodone-acetaminophen 5-325 mg tablet 1 tab PO Q6H PRN (Reason: pain) Qty: 12 RF: 0 cefadroxil 500 mg capsule 500 mg PO BID Qty: 14 RF: 0 Continued hydroxychloroquine 200 mg tablet 200 mg PO DAILY RF: 0 metoprolol succinate 50 mg tablet extended release 24 hr 50 mg PO DAILY RF: 0 pramipexole 0.25 mg tablet 0.125 - 0.5 mg PO QHS RF: 0 famotidine 20 mg tablet 20 mg PO .COMPLEX RF: 0 warfarin 5 mg tablet 5 mg PO DAILY Qty: 0 RF: 0 Savella 50 MG tablet 50 mg PO BID RF: 0 tramadol [Ultram] 50 mg tablet 50 mg PO HS PRNRF: 0 atorvastatin [Lipitor] 20 mg Tablet 20 mg PO HS RF: 0 amiodarone [Pacerone] 200 mg Tablet 200 mg PO DAILY Qty: 0 RF: 0 polyethylene glycol 3350 [Miralax] 17 gram Powder In Packet 17 g PO DAILY RF: 0 albuterol sulfate [ProAir HFA] 90 mcg/actuation Hfa Aerosol Inhaler 90 mcg INHALATION DAILY RF: 0 furosemide 40 mg Tablet 40 - 80 mg PO DIRECTED RF: 0 celecoxib [Celebrex] 200 mg capsule 200 mg PO BID Qty: 60 RF: 0 acetaminophen [Tylenol Extra Strength] 500 mg tablet 500 mg PO Q6H PRNQty: 90 RF: 0 pantoprazole [Protonix] 40 mg tablet,delayed release (DR/EC) 40 mg PO DAILY Qty: 30 RF: 0 gabapentin 300 mg capsule 300 mg PO QHS Qty: 14 RF: 0 docusate calcium 240 mg Capsule 240 mg PO BID RF: 0 meclizine 12.5 mg tablet 12.5 mg PO BID PRNRF: 0 hydralazine 10 mg tablet 10 mg PO BID RF: 0 albuterol sulfate 2.5 mg /3 mL (0.083 %) Solution For Nebulization 2.5 mg inhalation Q4H PRNRF: 0 ferrous sulfate [iron] 325 mg (65 mg iron) tablet 324 mg PO DAILY RF: 0 cephalexin 500 mg capsule 500 mg PO TID Qty: 15 RF: 0 Discharge Instructions Additional Instructions: I&D Surgical Incision Discharge Instructions Activity: You may bear weight as tolerated on the leg as long as you wear the knee immobilizer and you are using crutches or your walker for support. You should keep the knee immobilizer on until your follow-up. You may remove it for short breaks. when not mobilizing. You should use walker to support the knee. You may discontinue crutches/walker as tolerated. You may move your ankle and toes as needed. Dressing: You should keep the knee dressing in place until your follow-up appointment. If it becomes soiled or it unravels, you should call and notify the office. You may rewrap or overwrap until the follow-up. There is a NATHALIE dressing under the NANDO wrap. If the indicator light turns red or orange please call the office to discuss next steps. Medications: - You should continue to take medications as directed at the time of your previous revision total knee replacement as you have been. Continue with Tylenol and Celebrex. Some Hydrocodone was also called in for breakthrough pain. If you need a refill, please call the office at [phone]. - You should take the antibiotic for the next week until your follow-up. Referrals: Cordell Gipson MD [ [facility] STAFF PHYSICIAN] - Equipment/Supplies: Walker Activity:: Elevate Remove Dressings/Wound Care:: Do Not Remove Diet:: As Tolerated Discharge Orders Discharge Orders: Discharge Order (Routine); Ordered 08/01/21 Ordered By: Ciro Holley DS: Diagnosis Discharge Diagnosis (1) Draining postoperative wound: Status: Acute Documented by User: Cordell Gipson MD 08/01/21 16:25 Discharge Plan Disposition Patient Disposition: HOME Condition: Good Discharge Details Reason For Visit: I&D surgical wound left knee Attending Provider: Cordell Gipson Primary Care Provider: Lyubov Tee V Home Meds and New Rx's Prescriptions: New hydrocodone-acetaminophen 5-325 mg tablet 1 tab PO Q6H PRN (Reason: pain) Qty: 12 RF: 0 cefadroxil 500 mg capsule 500 mg PO BID Qty: 14 RF: 0 Continued hydroxychloroquine 200 mg tablet 200 mg PO DAILY RF: 0 metoprolol succinate 50 mg tablet extended release 24 hr 50 mg PO DAILY RF: 0 pramipexole 0.25 mg tablet 0.125 - 0.5 mg PO QHS RF: 0 famotidine 20 mg tablet 20 mg PO .COMPLEX RF: 0 warfarin 5 mg tablet 5 mg PO DAILY Qty: 0 RF: 0 Savella 50 MG tablet 50 mg PO BID RF: 0 tramadol [Ultram] 50 mg tablet 50 mg PO HS PRNRF: 0 atorvastatin [Lipitor] 20 mg Tablet 20 mg PO HS RF: 0 amiodarone [Pacerone] 200 mg Tablet 200 mg PO DAILY Qty: 0 RF: 0 polyethylene glycol 3350 [Miralax] 17 gram Powder In Packet 17 g PO DAILY RF: 0 albuterol sulfate [ProAir HFA] 90 mcg/actuation Hfa Aerosol Inhaler 90 mcg INHALATION DAILY RF: 0 furosemide 40 mg Tablet 40 - 80 mg PO DIRECTED RF: 0 celecoxib [Celebrex] 200 mg capsule 200 mg PO BID Qty: 60 RF: 0 acetaminophen [Tylenol Extra Strength] 500 mg tablet 500 mg PO Q6H PRNQty: 90 RF: 0 pantoprazole [Protonix] 40 mg tablet,delayed release (DR/EC) 40 mg PO DAILY Qty: 30 RF: 0 gabapentin 300 mg capsule 300 mg PO QHS Qty: 14 RF: 0 docusate calcium 240 mg Capsule 240 mg PO BID RF: 0 meclizine 12.5 mg tablet 12.5 mg PO BID PRNRF: 0 hydralazine 10 mg tablet 10 mg PO BID RF: 0 albuterol sulfate 2.5 mg /3 mL (0.083 %) Solution For Nebulization 2.5 mg inhalation Q4H PRNRF: 0 ferrous sulfate [iron] 325 mg (65 mg iron) tablet 324 mg PO DAILY RF: 0 cephalexin 500 mg capsule 500 mg PO TID Qty: 15 RF: 0 Discharge Instructions Additional Instructions: I&D Surgical Incision Discharge Instructions Activity: You may bear weight as tolerated on the leg as long as you wear the knee immobilizer and you are using crutches or your walker for support. You sh ould keep the knee immobilizer on until your follow-up. You may remove it for short breaks. when not mobilizing. You should use walker to support the knee. You may discontinue crutches/walker as tolerated. You may move your ankle and toes as needed. Dressing: You should keep the knee dressing in place until your follow-up appointment. If it becomes soiled or it unravels, you should call and notify the office. You may rewrap or overwrap until the follow-up. There is a NATHALIE dressing under the NANDO wrap. If the indicator light turns red or orange please call the office to discuss next steps. Medications: - You should continue to take medications as directed at the time of your previous revision total knee replacement as you have been. Continue with Tylenol and Celebrex. Some Hydrocodone was also called in for breakthrough pain. If you need a refill, please call the office at [phone]. - You should take the antibiotic for the next week until your follow-up. Referrals: Cordell Gipson MD [ [facility] STAFF PHYSICIAN] - Equipment/Supplies: Walker Activity:: Elevate Remove Dressings/Wound Care:: Do Not Remove Diet:: As Tolerated Discharge Orders Discharge Orders: Discharge Order (Routine); Ordered 08/01/21 Ordered By: Ciro Holley
[2021-08-01] MEDS: Lactated Ringers 1,000 ML 80 ML IV (14:11)
[2021-08-01] MEDS: ceFAZolin 2 GM/50 ML BAG IVPB (14:37)
[2021-08-01] MEDS: Bupivacaine 0.25% Pres-Free 30 ML VIAL (15:27)
[2021-08-01] MEDS: fentaNYL 100 MCG/2 ML VIAL IVP ×2 (16:31→16:35)
--- NOTE | 2021-08-01 16:53 | W.ANESPOSTOP ---
Postoperative Evaluation Date, Time and Location Date Performed: 08/01/21 Time Performed: 16:53 Patient Location: Day Surgery Unit Vital Signs Most Recent Imported Vital Signs: Most Recent Vital Signs Temp Pulse Resp BP Pulse Ox 36.4 C L 53 L 14 154/59 H 95 08/01/21 16:45 08/01/21 16:45 08/01/21 16:45 08/01/21 16:45 08/01/21 16:45 Pain Score Most Recent Pain Score: Most Recent Pain Score Pain Level 5 08/01/21 16:45 Assessment Mental Status: Awake (Alert & Oriented to Patient Baseline) Airway and Respiratory Function: Patent airway with normal (patient baseline) respiratory exam Cardiovascular Function: Hemodynamically Stable Hydration Status: Adequately Hydrated Nausea & Vomiting: No Nausea or Vomiting Pain: Pain is tolerable per patient Peripheral Nerve Block: Patient did not receive a nerve block Teaching Patient Teaching: Discussed Safe Use of Pain Medication Given Likely or Known GLADYS
[2021-08-01] MEDS: Acetaminophen 325 MG TAB 650 MG PO (17:12)
--- NOTE | 2021-08-02 08:03 | W.PM.OP ---
Date of service: 08/01/21 Time of Service: 15:49 Operative Note Operative Note DATE OF PROCEDURE: 08/02/21 PRE-OP DIAGNOSIS: Draining Surgical Wound - Left Knee POST-OP DIAGNOSIS: same Ruptured Arthrotomy and Quadriceps Repair PROCEDURE: Irrigation and Debridement of Left Surgical Knee Wound with Arthrotomy and Quadriceps Repair, application of john vacuum assisted surgical dressing SURGEON: Cordell Gipson OCCUPATIONAL HEALTH AND SAFETY OFFICER: Virgie Berg ANESTHESIA TYPE: General LMA/ETT Refer to Anesthesia Record ESTIMATED BLOOD LOSS: 50 PATHOLOGY: other (3 aerobic and 1 anaerobic cultures were taken) TOURNIQUET TIME: 0 COMPLICATIONS: None Patient was transported to: PACU Patient's condition: stable Indications: Chandni is an 81-year-old who is status post left knee revision for a loose knee replacement. She did well initially in her recovery. I was feeling good about her knee. Unfortunately, somehow her INR jumped to 5.7 and she had some spontaneous bruising seen around her abdomen and also along the left knee. This led to some anemia which eventually also led to acute kidney injury and fluid overload with exacerbation of her CHF. She continue to do well in mobility about the left knee but had a chronic serous drainage to it. This initially was bloody and the became serous but continued to drain. She went through multiple dressing attempts with john dressing as well as pressure dressings were continue to drain. Her fluid improved and her kidney function improved but she still had a draining wound. It did not show any signs of infection as she was still able to move the knee and walk on it with minimal discomfort. She did have a fall early in the recovery period but none since. Given the persistence of the drainage from the wound greater than 3 weeks out from surgery and the risk this in part to the knee replacement, I recommended proceeding with irrigation debridement of the surgical wound. I discussed the technical features of the case. I discussed the potential risk to include bleeding, infection, pain, stiffness, failure of repair, continued skin healing difficulties and drainage, blood clot, need for repeat procedures. Despite these risk, she elected to proceed. Findings: The incision was opened up excising the old skin edges. There is notable necrotic fat and hemosiderin laden tissue in the space anterior and lateral to the knee retinaculum. The arthrotomy was noted to be open. However, there is no gross purulence. There is no obvious sign of infection. 3 aerobic and 1 anaerobic culture were taken from the knee and sent to the lab. Aggressive debridement of all necrotic. Tissue and remnant hematoma was removed. Skin edges were also freshened. 6 L normal saline as well as 900 cc of Irrisept solution were used in irrigation. The arthrotomy was closed along with the quadriceps using an antibiotic laden #1 PDS. The deeper tissues were closed with PDS and the skin was closed with a running subicular Monocryl. This was watertight without significant drainage at the end of the case. Procedure Description: Lyubov was greeted in the preoperative holding area. Her identity was confirmed the correct site was identified and marked. The consent was reviewed the patient and signed. History and physical was updated. She was taken to the operating room placed in the supine position. All bony prominences well-padded. The left leg was prepped with ChloraPrep and draped in a standard fashion. Prophylactic antibiotics in the form of cefazolin were administered. A timeout was performed for safe surgery. The inferior two thirds of the wound had 3 spots that had some chronic serous drainage. This portion of the incision was then excised, removing the old incision tissue and going around any draining areas to get the fresh skin. This skin was removed sharply. The deeper tissue was then incised and immediately we encountered hemosiderin laden fat and tissue which appeared to be unhealthy and either remnant clot or necrotic fat. Multiple cultures were then taken and sent. 3 aerobic and 1 anaerobic culture were taken. These are sent to the lab. A rongeur was utilized to remove all this tissue which was quite copious. This seemed to elevate the flap laterally over the knee as well as anteriorly. This was removed sharply. Further investigation showed that the arthrotomy was ruptured from the midpoint of patella through the majority of the quadriceps tendon. The medial soft tissues were relatively intact and so I did not elevate these tissues up much more than just to evaluate the arthrotomy. With this fully investigated I utilized a rongeur to remove and debride any of this tissue. I then irrigated the knee with approximately 3 L of normal saline using cystoscopy tubing. Further evaluation was then performed, removing any other tissue with a rongeur and sharp dissection. The incision was opened up more proximally for further evaluation of the arthrotomy and to make sure that all necrotic appearing tissue had been debrided. I then irrigated the wound with 450 cc of irrisept chlorhexidine solution and let it sit for 3 minutes. After this, an additional 3 L of normal saline were irrigated through the wound. At this point, it was deemed fully irrigate debrided for closure. Using a #1 antibiotic laden PDS I then began closing the arthrotomy and the quadriceps. The tissue was quite healthy and was able to be close with little tension and difficulty. This was closed with multiple interrupted [id number] sutures. Once this was completed I then irrigated the remainder of the soft tissues with irrisept chlorhexidine solution and allowed to sit for additional 3 minutes. A small amount of normal saline was used to rinse after this was completed. With the knee in 90 degrees of flexion the remainder of the knee was closed with 0 and 2-0 PDS. The skin was closed with a running 3-0 Monocryl suture. There is very minimal drainage at this time once the skin had been closed. However, to allow to drain some I applied a john dressing as a surgical dressing. This was allowed to sit for a few minutes to evaluate whether it would be competent to handle the drainage and there was very minimal drainage seen on the dressing and therefore was kept in place. The leg was wrapped from foot to thigh with an Beni wrap and a knee immobilizer was applied. She may weight-bear as tolerated with the knee immobilizer. The knee immobilizer simply an adjunct to minimize knee flexion in the first week. Should be evaluated in 1 week to evaluate the wound.
== END 2021-08-01 18:00 | disposition home or self-care (01) ==
PROVIDERS: PCP Family Medicine; Visit Provider Student in an Organized Health Care Education/Training Program
PROC: (CPT 13160; principal; 2021-08-01 15:00)
DX: T81.32XA Disruption of internal operation (surgical) wound, not elsewhere classified, initial encounter (principal); T81.89XA Other complications of procedures, not elsewhere classified, initial encounter
CPT/HCPCS: 13160; 87077; 87070; 87075; 87186; 87205; J0690; J2001; J2405; J3010

== ENCOUNTER → 2021-08-09 10:51 | Outpatient (BNVA) | payer MEDICARE, OTHER, SELFPAY | PROVIDERS: PCP Family Medicine; Referring Provider Family Medicine | DX: Z47.1 Aftercare following joint replacement surgery (principal); Z96.652 Presence of left artificial knee joint ==

== ENCOUNTER 2021-08-15 13:19 | Observation (INO) | payer MEDICARE, OTHER, SELFPAY ==
[2021-08-15] VITALS (27 sets, daily range): BP systolic 104–157; BP diastolic 42–98; PULSE 44–57; RESP 11–22; TEMP 36.1–37; O2SAT 93–100
--- NOTE | 2021-08-15 13:00 | RT.EKG_ITS ---
APPROVED REPORT Exam: Resting ECG Reason for Exam: bradycardia Patient Location: E HR:46 bpm ECG Measurements Heart Rate 46 AXIS VA 254 P -54 QRSd 127 QRS -25 QT 530 T 15 QTc 466 Conclusion Sinus or ectopic atrial bradycardia...P axis (-45,135), rate< 60 Prolonged VA interval...VA >230, V-rate 30- 49 Left bundle branch block...QRSd>120, broad/notched R. Sinus. No STEMI. I have reviewed and interpreted ECG and agree with software generated interpretation.
--- NOTE | 2021-08-15 13:25 | ED.GENADUL_ITS ---
Discharge Plan Disposition Patient Disposition: HOME Condition: Stable Discharge Details Clinical Impression: Bradycardia, Dizziness Primary Care Provider: Lyubov Tee V ED Provider: Monserrat Dash Home Meds and New Rx's Prescriptions: No Action hydroxychloroquine 200 mg tablet 200 mg PO DAILY RF: 0 metoprolol succinate 50 mg tablet extended release 24 hr 50 mg PO DAILY RF: 0 pramipexole 0.25 mg tablet 0.125 - 0.5 mg PO QHS RF: 0 famotidine 20 mg tablet 20 mg PO .COMPLEX RF: 0 hydrocodone-acetaminophen 5-325 mg tablet 1 tab PO Q4H MDD 30mg PRN (Reason: pain) Qty: 20 RF: 0 cefadroxil 500 mg capsule 500 mg PO BID Qty: 70 RF: 0 Savella 50 MG tablet 50 mg PO BID RF: 0 tramadol [Ultram] 50 mg tablet 50 mg PO HS PRNRF: 0 atorvastatin [Lipitor] 20 mg Tablet 20 mg PO HS RF: 0 amiodarone [Pacerone] 200 mg Tablet 200 mg PO DAILY Qty: 0 RF: 0 polyethylene glycol 3350 [Miralax] 17 gram Powder In Packet 17 g PO DAILY RF: 0 albuterol sulfate [ProAir HFA] 90 mcg/actuation Hfa Aerosol Inhaler 90 mcg INHALATION DAILY RF: 0 furosemide 40 mg Tablet 40 - 80 mg PO DIRECTED RF: 0 acetaminophen [Tylenol Extra Strength] 500 mg tablet 500 mg PO Q6H PRNQty: 90 RF: 0 gabapentin 300 mg capsule 300 mg PO QHS Qty: 14 RF: 0 docusate calcium 240 mg Capsule 240 mg PO BID RF: 0 meclizine 12.5 mg tablet 12.5 mg PO BID PRNRF: 0 hydralazine 10 mg tablet 10 mg PO BID RF: 0 albuterol sulfate 2.5 mg /3 mL (0.083 %) Solution For Nebulization 2.5 mg inhalation Q4H PRNRF: 0 nitroglycerin 0.4 mg Tablet, Sublingual 0.4 mg SUBLINGUAL Q5-15M PRNRF: 0 polyethylene glycol 3350 [Miralax] 17 gram/dose Powder 17 g PO DAILY PRNRF: 0 ferrous gluconate 324 mg (38 mg iron) Tablet 324 mg PO BID RF: 0 melatonin 5 mg Tablet 5 mg PO HS RF: 0 warfarin 5 mg tablet 2.5 mg PO DAILY RF: 0 Medical Decision Making 81-year-old female with a history of atrial fibrillation on Coumadin, CHF, CKD, fibromyalgia, GERD, lupus, pulmonary hypertension who is DNR/DNI presents for evaluation after noted to have a heart rate in the 40s for home health. Per EMS, patient is asymptomatic. Patient endorsed to me that she has intermittent dizziness for several weeks. Review of records note that patient's heart rate has been in the 50s in the past couple years. EKG notes a rate of 46, sinus, prolonged WI and left bundle branch block. Left bundle branch block noted in previous EKG. heart rate 40s to 50s on the monitor. Patient is on metoprolol and amiodarone. Will obtain screening labs, chest x- ray, give fluids and continue to monitor. Heart rate has remained in the low to mid 50s. Labs reviewed. White blood cell count normal at 8. Hemoglobin actually up trending to 8.3 from as low as 6.9 last month postop. Creatinine at baseline at 2. Troponin negative. Chest x- ray unchanged from baseline. Will admit patient for observation overnight with telemetry monitoring. Case discussed with hospitalist who accepts patient for admission. Medical Records Medical records reviewed: Yes I reviewed the patient's medical records. Imaging Data Radiologic Study: Radiologist's impression: XR PORTABLE CHEST AP CLINICAL HISTORY: bradycardia, r/o acute disease. TECHNIQUE: 2D digital imaging was performed. COMPARISON: CR,XR XR CHEST 2V PA LATERAL from 07/16/2021 FINDINGS: Heart size is again noted be prominent. The mediastinum is not widened.. The mediastinum is not widened. Mild pulmonary venous hypertension pattern but there is no airspace pulmonary edema. No pleural effusions. No pneumothorax. IMPRESSION: As above. No significant change compared to 07/16/2021. Lab Data Lab results reviewed: Yes I reviewed the patient's lab results. Labs: Laboratory Tests Range/Units 08/15/21 08/15/21 08/15/21 13:50 13:50 14:54 WBC (4.4-10.8) 10^3/uL 8.60 RBC (3.93-5.22) 10^6/uL 2.77 L Hgb (11.2-15.7) g/dL 8.3 L Hct (36.0-46.0) % 27.3 L MCV (80-95) fL 98.6 H MCH (27.0-33.0) pg 30.0 MCHC (32.0-36.0) % 30.4 L RDW (11.7-14.6) % 14.4 Plt Count (130-400) 10^3/uL 325 MPV (8.0-11.0) fL 9.1 Immature Gran % 0.5 Neutrophils % 76.9 Lymphocytes % 13.6 Monocytes % 6.7 Eosinophils % 2.0 Basophils % 0.3 Nucleated RBC % % 0 Absolute Neutrophils (1.2-6.7) 10^3/uL 6.61 Absolute Lymphocytes (1.2-3.4) 10^3/uL 1.17 L Absolute Monocytes (0.1-0.8) 10^3/uL 0.58 Absolute Eosinophils (0.0-0.7) 10^3/uL 0.17 Absolute Basophils (0.0-0.2) 10^3/uL 0.03 Sodium (136-145) mmol/L 144 Potassium (3.5-5.1) mmol/L 3.5 Chloride (98-107) mmol/L 103 Carbon Dioxide (21.0-32.0) mmol/L 32.9 H Anion Gap (3-11) mmol/L 8.1 BUN (7-18) mg/dL 23 H Creatinine (0.55-1.02) mg/dL 2.0 H Estimated GFR/1.73 m2 (mL/min/1.73m2) 23.97 Glucose (74-106) mg/dL 107 H Calcium (8.5-10.1) mg/dL 8.7 Magnesium (1.8-2.4) mg/dL 2.3 Total Bilirubin (0.2-1.0) mg/dL 0.5 AST (15-37) U/L 20 ALT (14-59) U/L 17 Alkaline Phosphatase (46-116) U/L 98 Troponin I (<0.06) ng/mL < 0.05 Total Protein (6.4-8.2) g/dL 6.8 Albumin (3.4-5.0) g/dL 3.2 L COVID-19 Source Nasal/Nares ECG Data Attestation: I personally reviewed and interpreted this ECG (s) as follows: Interpretation: Rate of 46, sinus, prolonged WI 254. Left bundle branch block. Left bundle branch block seen in previous EKGs HPI General Mode of arrival: EMS . Date/Time Provider Initiated Documentation: 08/15/21 13:25 . Limitations to Documentation: no limitations . Information obtained by: patient . HPI Narrative: Patient is an 81-year-old female with a history of atrial fibrillation on Coumadin, chronic CHF, CKD, fibromyalgia, GERD, lupus, pulmonary hypertension, who is almost 2 weeks status post left knee revision surgery presents for evaluation of bradycardia noted by home health today. Patient takes metoprolol but states her heart rate is usually in the 50s to 60s and states they noted in the 40s. Patient initially denied any complaints of chest pain, shortness of breath, dizziness, fever, recent illness, nausea, vomiting or diarrhea but then endorses that she has had intermittent dizziness over the past several weeks. Related Data Home Medications Medication Instructions Recorded Confirmed Savella 50 mg PO BID 11/24/17 08/15/21 atorvastatin [Lipitor] 20 mg PO HS 05/17/19 08/15/21 polyethylene glycol 3350 [Miralax] 17 g PO DAILY 08/26/19 08/15/21 amiodarone [Pacerone] 200 mg PO DAILY #0 tab 11/14/19 08/15/21 albuterol sulfate [ProAir HFA] 90 mcg INHALATION DAILY 02/13/20 08/15/21 hydroxychloroquine 200 mg tablet 200 mg PO DAILY tab 05/31/21 08/15/21 metoprolol succinate 50 mg 50 mg PO DAILY 05/31/21 08/15/21 tablet,extended release 24 hr famotidine 20 mg tablet 20 mg PO .COMPLEX 06/29/21 08/15/21 pramipexole 0.25 mg tablet 0.125 - 0.5 mg PO QHS tab 06/29/21 08/15/21 tramadol 50 mg tablet 50 mg PO HS PRN tab 06/29/21 08/15/21 acetaminophen [Tylenol Extra 500 mg PO Q6H PRN #90 tab 07/04/21 08/15/21 Strength] furosemide 40 - 80 mg PO DIRECTED 07/04/21 08/15/21 gabapentin 300 mg PO QHS #14 cap 07/04/21 08/15/21 albuterol sulfate 2.5 mg INHALATION Q4H PRN 07/16/21 08/15/21 docusate calcium 240 mg PO BID 07/16/21 08/15/21 hydralazine 10 mg PO BID 07/16/21 08/15/21 meclizine 12.5 mg PO BID PRN 07/16/21 08/15/21 hydrocodone 5 mg-acetaminophen 325 1 tab PO Q4H PRN #20 tab MDD 30mg 08/06/21 08/15/21 mg tablet cefadroxil 500 mg capsule 500 mg PO BID #70 cap 08/09/21 08/15/21 ferrous gluconate 324 mg PO BID 08/15/21 08/15/21 melatonin 5 mg PO HS 08/15/21 08/15/21 nitroglycerin 0.4 mg SUBLINGUAL Q5-15M PRN 08/15/21 08/15/21 polyethylene glycol 3350 [Miralax] 17 g PO DAILY PRN 08/15/21 08/15/21 warfarin 2.5 mg PO DAILY 08/15/21 08/15/21 Previous Rx's Medication Instructions Recorded amiodarone [Pacerone] 200 mg PO DAILY #0 tab 11/14/19 acetaminophen [Tylenol Extra 500 mg PO Q6H PRN #90 tab 07/04/21 Strength] gabapentin 300 mg PO QHS #14 cap 07/04/21 hydrocodone 5 mg-acetaminophen 325 1 tab PO Q4H PRN #20 tab MDD 30mg 08/06/21 mg tablet cefadroxil 500 mg capsule 500 mg PO BID #70 cap 08/09/21 Allergies Allergy/AdvReac Type Severity Reaction Status Date / Time Sulfa (Sulfonamide Allergy Verified 08/15/21 14:57 Antibiotics) cat scan dye AdvReac Uncoded 08/15/21 14:[address]: 3 Review of Systems All systems reviewed & are unremarkable except as noted in HPI and below Constitutional Constitutional: Reports as per HPI, Denies chills and Denies fever(s) Eyes Eyes: Denies blurry vision ENT Ears, Nose, Mouth, and Throat: Reports dizziness, Denies sore throat and Denies throat swelling Cardiovascular Cardiovascular: Denies chest pain and Denies dyspnea Respiratory Respiratory: Denies cough and Denies dyspnea Gastrointestinal Gastrointestinal: Denies abdominal pain, Denies diarrhea and Denies vomiting Genitourinary Genitourinary: Denies hematuria and Denies dysuria Musculoskeletal Musculoskeletal: Denies back pain and Denies numbness Integumentary/Breasts Skin/Breast: Denies lesions and Denies rash Neurologic Neurologic: Reports dizziness, Denies localized weakness and Denies numbness Allergic/Immunologic Allergic/Immunologic: Denies throat swelling [facility] Medical History (Updated 08/15/21 @ 15:12 by Monserrat Dash DO) Atrial fibrillation Chronic diastolic CHF (congestive heart failure) CKD (chronic kidney disease), stage III Depression Diverticulosis of colon DNI (do not intubate) DNR (do not resuscitate) Fibromyalgia Gastroesophageal reflux Goals of care, counseling/discussion 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 POLST (Physician Orders for Life-Sustaining Treatment) done 02/16/20 Pulmonary hypertension Respiratory infection Systemic lupus erythematosus F/U with / Ramona @ [facility] [place] Surgical History Draining postoperative wound S/P I& History of hysterectomy History of partial colectomy partial bowel resection-colectomy with colosotmy ad reversal, abdominal adhesions History of surgical removal of ganglion cyst both wrists History of tonsillectomy and adenoidectomy History of total right knee replacement (TKR) Hx of bilateral cataract extraction Hx of section Hx of knee surgery S/p bilateral carpal tunnel release Status post total left knee replacement (~1999) Family History Father Heart disease Diabetes Mother Heart disease Hypertension Son Diabetes Granddaughter No problems noted. Granddaughter No problems noted. Daughter Hemochromatosis Social History Smoking/Tobacco Use Status: Former Tobacco Use Quit Date: 10/20/89 Smoking risk assessment performed?: Yes Alcohol Intake: current Alcohol Intake frequency: a few times a month Drug use: Never Substance use type: does not use Caregiver/Support person: No Household members: none Housing: house Communication Needs: Hard of Hearing and Corrective Lenses Education Level: high school Do you need help understanding health information?: Always How often do you talk on the phone with friends or family?: three or more times per week How often do you get together with friends or relatives?: three or more times per week Panel score (0-1 are the most socially isolated patients): 1 What type of physical activity do you participate in: walking and sedentary lifestyle Duration: < 15 minutes/day Special marci needs: No Seatbelt use: always Do you feel safe at home: Yes Do you feel safe in your relationship?: Yes Exam Const General: cooperative and no acute distress HENMT Head: normal to inspection Face and sinus: normal facial exam Eyes General: appearance normal, both eyes and all related structures Pupils: PERRL EOM: EOM intact bilaterally Neck Neck: normal visual inspection and No submandibular swelling Lymphatic: no lymphadenopathy noted Chest Chest: normal inspection of the chest and no tenderness Resp Effort & Inspection: normal respiratory effort and able to speak in complete sentences Auscultation: clear to auscultation bilaterally Cardio Rate: bradycardic Rhythm: regular rhythm GI Inspection: normal to inspection Palpation: soft, not firm, not rigid and nontender Auscultation: normal bowel sounds Skin General skin exam: no rashes or lesions noted Neuro General: patient alert, patient awake and patient oriented x3 Cognition: normal cognition Speech: speech normal Motor: muscle tone normal throughout Sensory Exam: no sensory deficits noted Extrem General: normal to inspection, full ROM, capillary refill normal, no calf tenderness bilaterally and no edema Other: L knee immobilizer noted. Psych Appearance: grossly normal Mental Status: mental status grossly normal Speech and Movement: speech and movement normal Affect: normal affect
--- NOTE | 2021-08-15 13:45 | DI.RAD_ITS ---
Exam(s) XR PORTABLE CHEST AP EXAM: XR PORTABLE CHEST AP CLINICAL HISTORY: bradycardia, r/o acute disease. TECHNIQUE: 2D digital imaging was performed. COMPARISON: CR,XR XR CHEST 2V PA LATERAL from 07/16/2021 FINDINGS: Heart size is again noted be prominent. The mediastinum is not widened.. The mediastinum is not widened. Mild pulmonary venous hypertension pattern but there is no airspace pulmonary edema. No pleural effu sions. No pneumothorax. IMPRESSION: As above. No significant change compared to 07/16/2021. DATA REPOSITORY: RADIATION DOSE DELIVERED: All CT scans at this facility use at least one of these dose optimization techniques: automated exposure control; mA and/or kV adjustment per patient size (includes targeted e xams where dose is matched to clinical indication); or iterative reconstruction.
[2021-08-15 13:58] LABS: Abs Immature Grans 0.04 10^3/uL (0.0-0.06); Absolute Basophil Count 0.03 10^3/uL (0.0-0.2); Absolute Eosinophil Count 0.17 10^3/uL (0.0-0.7); Absolute Lymphocyte Count 1.17 10^3/uL (1.2-3.4); Absolute Monocyte Count 0.58 10^3/uL (0.1-0.8); Absolute Neutrophil Count 6.61 10^3/uL (1.2-6.7); Basophils % 0.3; HCT 27.3 % (36.0-46.0); HGB 8.3 g/dL (11.2-15.7); Immature Grans % 0.5; Lymphocytes % 13.6; MCHC 30.4 % (32.0-36.0); MCV 98.6 fL (80-95); MPV 9.1 fL (8.0-11.0); Monocytes % 6.7; Neutrophils % 76.9; Nucleated RBC 0 %; Platelet Count 325 10^3/uL (130-400); RBC 2.77 10^6/uL (3.93-5.22); RDW 14.4 % (11.7-14.6); RDW-SD 51.8 fL
[2021-08-15] MEDS: Normal Saline 500 ML IV (14:00)
[2021-08-15 14:16] LABS: ALT 17 U/L (14-59); AST 20 U/L (15-37); Albumin 3.2 g/dL (3.4-5.0); Alkaline Phosphatase 98 U/L (46-116); Anion Gap 8.1 mmol/L (3-11); BUN 23 mg/dL (7-18); Bilirubin, Total 0.5 mg/dL (0.2-1.0); CO2 32.9 mmol/L (21.0-32.0); Calcium 8.7 mg/dL (8.5-10.1); Chloride 103 mmol/L (98-107); Estimated GFR 23.97 (mL/min/1.73m2); Glucose 107 mg/dL (74-106); Magnesium 2.3 mg/dL (1.8-2.4); Potassium 3.5 mmol/L (3.5-5.1); Sodium 144 mmol/L (136-145); Total Protein 6.8 g/dL (6.4-8.2); Troponin I < 0.05 ng/mL (<0.06)
--- NOTE | 2021-08-15 14:46 | W.PM.HP.N ---
Date of service: 08/15/21 Time of Service: 14:46 Assessment and Plan Assessment and plan (1) Bradycardia: Status: Acute Assessment and plan: referred to observation on telemetry. will hold metoprolol. cycle troponins, echo (2) History of revision of total replacement of left knee joint: Status: Acute Assessment and plan: continue routine post operative care PT/OT (3) Paroxysmal atrial fibrillation: Status: Chronic Assessment and plan: rate in the 40's, continue amiodarone, stop lopressor anticoagulated on coumadin, follow INR (4) Chronic diastolic CHF (congestive heart failure): Status: Acute Assessment and plan: last echo in Oct 2019 Conclusion Left Ventricle : The left ventricle is normal size. The left ventricular ejection fraction is within the normal range. Mild left ventricular hypertrophy. There is normal LV segmental wall motion but there is paradoxical septal motion. Diastolic function is indeterminate but there is evidence of elevated filling pressures. LVEF is estimated to be 55-60%. Right Ventricle : Right ventricle is mildly dilated. The right ventricular systolic function appears normal. Atria : Left atrium is mild to moderately dilated. Right atrium is mildly dilated. Aortic Valve : Aortic valve is thickened but has adequate excursion. There is no hemodynamically significant aortic stenosis. Trace aortic regurgitation. Mitral Valve : The mitral valve is mildly thickened. Moderate mitral regurgitation. No evidence of mitral valve stenosis. Great Vessels : The IVC is dilated, but collapses >50% with inspiration. Estimated RVSP is 33-41 mmHg. Compared to echocardiogram dated 09/29/2018: There is no significant change. echo pending. discussed with Dr Bledsoe History of Present Illness History of Present Illness Chief Complaint: bradycardia Narrative: patient referred to ED by home health services for pulse in the 40's, patient denies chest pain, states she has felt dizzy for weeks intermittently. work up in the ED shows improved H&H, improved renal function and EKG with no acute changes. Her case is discussed with hospitalist services and she is accepted in obs on telemetry, will hold BB. otherwise has been doing well and in her usual state of health Review of Systems All systems reviewed & are unremarkable except as noted in HPI and below Constitutional Constitutional: Denies chills and Denies fever(s) Eyes Eyes: Denies blurry vision ENT Ears, Nose, Mouth, and Throat: Reports dizziness, Denies sore throat and Denies throat swelling Cardiovascular Cardiovascular: Denies chest pain and Denies dyspnea Respiratory Respiratory: Denies cough and Denies dyspnea Gastrointestinal Gastrointestinal: Denies abdominal pain, Denies diarrhea and Denies vomiting Genitourinary Genitourinary: Denies hematuria and Denies dysuria Musculoskeletal Musculoskeletal: Denies back pain and Denies numbness Integumentary/Breasts Skin/Breast: Denies lesions and Denies rash Neurologic Neurologic: Reports dizziness, Denies localized weakness and Denies numbness Allergic/Immunologic Allergic/Immunologic: Denies throat swelling [facility] Medical History (Updated 08/15/21 @ 15:12 by Monserrat aDsh DO) Atrial fibrillation Chronic diastolic CHF (congestive heart failure) CKD (chronic kidney disease), stage III Depression Diverticulosis of colon DNI (do not intubate) DNR (do not resuscitate) Fibromyalgia Gastroesophageal reflux Goals of care, counseling/discussion 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 POLST (Physician Orders for Life-Sustaining Treatment) done 02/16/20 Pulmonary hypertension Respiratory infection Systemic lupus erythematosus [place] [facility] [place] Draining postoperative wound S/P I& History of hysterectomy History of partial colectomy partial bowel resection-colectomy with colosotmy ad reversal, abdominal adhesions History of surgical removal of ganglion cyst both wrists History of tonsillectomy and adenoidectomy History of total right knee replacement (TKR) Hx of bilateral cataract extraction Hx of section Hx of knee surgery S/p bilateral carpal tunnel release Status post total left knee replacement (~1999) Family History Father Heart disease Diabetes Mother Heart disease Hypertension Son Diabetes Granddaughter No problems noted. Granddaughter No problems noted. Daughter Hemochromatosis Social History Smoking/Tobacco Use Status: Former Tobacco Use Quit Date: 10/20/89 Smoking risk assessment performed?: Yes Alcohol Intake: current Alcohol Intake frequency: a few times a month Drug use: Never Substance use type: does not use Caregiver/Support person: No Household members: none Housing: house Communication Needs: Hard of Hearing and Corrective Lenses Education Level: high school Do you need help understanding health information?: Always How often do you talk on the phone with friends or family?: three or more times per week How often do you get together with friends or relatives?: three or more times per week Panel score (0-1 are the most socially isolated patients): 1 What type of physical activity do you participate in: walking and sedentary lifestyle Duration: < 15 minutes/day Special marci needs: No Seatbelt use: always Do you feel safe at home: Yes Do you feel safe in your relationship?: Yes Meds Allergies and Home Medications Allergies Allergy/AdvReac Type Severity Reaction Status Date / Time Sulfa (Sulfonamide Allergy Verified 08/15/21 14:57 Antibiotics) cat scan dye AdvReac Uncoded 08/15/21 14:57 Home Medications Medication Instructions Recorded Confirmed Type Savella 50 mg PO BID 11/24/17 08/15/21 History atorvastatin [Lipitor] 20 mg PO HS 05/17/19 08/15/21 History polyethylene glycol 3350 [Miralax] 17 g PO DAILY 08/26/19 08/15/21 History amiodarone [Pacerone] 200 mg PO DAILY #0 tab 11/14/19 08/15/21 Rx albuterol sulfate [ProAir HFA] 90 mcg INHALATION DAILY 02/13/20 08/15/21 History hydroxychloroquine 200 mg tablet 200 mg PO DAILY tab 05/31/21 08/15/21 History metoprolol succinate 50 mg 50 mg PO DAILY 05/31/21 08/15/21 History tablet,extended release 24 hr famotidine 20 mg tablet 20 mg PO .COMPLEX 06/29/21 08/15/21 History pramipexole 0.25 mg tablet 0.125 - 0.5 mg PO QHS tab 06/29/21 08/15/21 History tramadol 50 mg tablet 50 mg PO HS PRN tab 06/29/21 08/15/21 History acetaminophen [Tylenol Extra 500 mg PO Q6H PRN #90 tab 07/04/21 08/15/21 Rx Strength] furosemide 40 - 80 mg PO DIRECTED 07/04/21 08/15/21 History gabapentin 300 mg PO QHS #14 cap 07/04/21 08/15/21 Rx albuterol sulfate 2.5 mg INHALATION Q4H PRN 07/16/21 08/15/21 History docusate calcium 240 mg PO BID 07/16/21 08/15/21 History hydralazine 10 mg PO BID 07/16/21 08/15/21 History meclizine 12.5 mg PO BID PRN 07/16/21 08/15/21 History hydrocodone 5 mg-acetaminophen 325 1 tab PO Q4H PRN #20 tab MDD 30mg 08/06/21 08/15/21 Rx mg tablet cefadroxil 500 mg capsule 500 mg PO BID #70 cap 08/09/21 08/15/21 Rx ferrous gluconate 324 mg PO BID 08/15/21 08/15/21 History melatonin 5 mg PO HS 08/15/21 08/15/21 History nitroglycerin 0.4 mg SUBLINGUAL Q5-15M PRN 08/15/21 08/15/21 History polyethylene glycol 3350 [Miralax] 17 g PO DAILY PRN 08/15/21 08/15/21 History warfarin 2.5 mg PO DAILY 08/15/21 08/15/21 History Exam Const General: cooperative and no acute distress [facility] Head: normal to inspection Face and sinus: normal facial exam Eyes General: appearance normal, both eyes and all related structures Pupils: PERRL EOM: EOM intact bilaterally Neck Neck: normal visual inspection and No submandibular swelling Lymphatic: no lymphadenopathy noted Chest Chest: normal inspection of the chest and no tenderness Resp Effort & Inspection: normal respiratory effort and able to speak in complete sentences Auscultation: clear to auscultation bilaterally Cardio Rate: bradycardic Rhythm: regular rhythm GI Inspection: normal to inspection Palpation: soft, not firm, not rigid and nontender Auscultation: normal bowel sounds Skin General skin exam: no rashes or lesions noted Neuro General: patient alert, patient awake and patient oriented x3 Cognition: normal cognition Speech: speech normal Motor: muscle tone normal throughout Sensory Exam: no sensory deficits noted Extrem General: normal to inspection, full ROM, no calf tenderness bilaterally and no edema Psych Appearance: grossly normal Mental Status: mental status grossly normal Speech and Movement: speech and movement normal Affect: normal affect Results Labs Result diagrams: 08/16/21 07:00 08/16/21 07:00 Labs: Laboratory Results - last 24 hr 08/15/21 08/15/21 13:50 13:50 WBC 8.60 RBC 2.77 L Hgb 8.3 L Hct 27.3 L MCV 98.6 H MCH 30.0 MCHC 30.4 L RDW 14.4 Plt Count 325 MPV 9.1 Immature Gran % 0.5 Neutrophils % 76.9 Lymphocytes % 13.6 Monocytes % 6.7 Eosinophils % 2.0 Basophils % 0.3 Nucleated RBC % 0 Absolute Neutrophils 6.61 Absolute Lymphocytes 1.17 L Absolute Monocytes 0.58 Absolute Eosinophils 0.17 Absolute Basophils 0.03 Sodium 144 Potassium 3.5 Chloride 103 Carbon Dioxide 32.9 H Anion Gap 8.1 BUN 23 H Creatinine 2.0 H Estimated GFR/1.73 m2 23.97 Glucose 107 H Calcium 8.7 Magnesium 2.3 Total Bilirubin 0.5 AST 20 ALT 17 Alkaline Phosphatase 98 Troponin I < 0.05 Total Protein 6.8 Albumin 3.2 L Last Vital Signs Temp 36.6 C 08/15/21 13:20 Pulse 46 L 08/15/21 14:00 Resp 19 08/15/21 14:01 BP 127/42 L 08/15/21 14:00 Pulse Ox 98 08/15/21 14:01 PAWSS Have you Been Recently Intoxicated or Drunk Within the Last 30 days?: No Have you Ever Experienced Previous Episodes of Alcohol Withdrawal?: No Have you ever Experienced Withdrawal Seizures?: No Have you ever Experienced Delirium Tremens(DT)s?: No Have you ever undergone Alcohol Rehabilitation Treatment (i.e, inpt ot outpatient treatment programs)?: No Have you ever Experienced Blackouts?: No Have you ever Combined Alcohol with other Downers within the last 90 days?: No Have you ever Combined Alcohol with any other Substance of Abuse during the last 90 days?: No Positive Blood Alcohol level on Presentation? [PCS.BAL]: No Evidence of Increased Autonomic Activity (i.e. HR>120, tremor, sweating, agitation, nausea)?: No Result: 0
[2021-08-15 15:07] LABS: Source Nasal/Nares
[2021-08-15 18:38] LABS: COVID-19 PCR Negative (Negative)
[2021-08-15 18:49] LABS: INR 2.4 (0.9-1.1); Prothrombin Time 23.6 sec (9.3-11.0)
[2021-08-15] MEDS: Atorvastatin 20 MG TAB PO (20:31)
[2021-08-15] MEDS: Gabapentin 300 MG CAP PO (20:31)
[2021-08-15] MEDS: traMADol 50 MG TAB PO (20:31)
[2021-08-15] MEDS: Pramipexole 0.25 MG TAB 0.125 MG PO (21:22)
[2021-08-15] MEDS: Melatonin 3 MG TAB 6 MG PO (21:23)
[2021-08-15 21:42] LABS: Troponin I < 0.05 ng/mL (<0.06)
[2021-08-16] VITALS (8 sets, daily range): BP systolic 123–157; BP diastolic 57–73; PULSE 57–65; RESP 16–18; TEMP 36.4–37.3; O2SAT 95–99
[2021-08-16 07:31] LABS: Abs Immature Grans 0.02 10^3/uL (0.0-0.06); Absolute Basophil Count 0.02 10^3/uL (0.0-0.2); Absolute Eosinophil Count 0.15 10^3/uL (0.0-0.7); Absolute Lymphocyte Count 1.45 10^3/uL (1.2-3.4); Absolute Monocyte Count 0.52 10^3/uL (0.1-0.8); Absolute Neutrophil Count 3.19 10^3/uL (1.2-6.7); Basophils % 0.4; Eosinophils % 2.8; HCT 25.4 % (36.0-46.0); HGB 7.8 g/dL (11.2-15.7); Immature Grans % 0.4; Lymphocytes % 27.1; MCH 29.7 pg (27.0-33.0); MCHC 30.7 % (32.0-36.0); MCV 96.6 fL (80-95); MPV 9.4 fL (8.0-11.0); Monocytes % 9.7; Neutrophils % 59.6; Nucleated RBC 0 %; Platelet Count 289 10^3/uL (130-400); RBC 2.63 10^6/uL (3.93-5.22); RDW 14.4 % (11.7-14.6); RDW-SD 50.2 fL; WBC 5.35 10^3/uL (4.4-10.8)
[2021-08-16 07:40] LABS: Anion Gap 4.2 mmol/L (3-11); BUN 23 mg/dL (7-18); CO2 34.8 mmol/L (21.0-32.0); CREATININE 1.8 mg/dL (0.55-1.02); Calcium 8.5 mg/dL (8.5-10.1); Chloride 105 mmol/L (98-107); Estimated GFR 27.07 (mL/min/1.73m2); Glucose 88 mg/dL (74-106); Potassium 3.9 mmol/L (3.5-5.1); Sodium 144 mmol/L (136-145)
[2021-08-16 07:44] LABS: Prothrombin Time 21.2 sec (9.3-11.0)
[2021-08-16 07:47] LABS: INR 2.1 (0.9-1.1)
--- NOTE | 2021-08-16 09:11 | INITIAL_ITS ---
- If Service Date Differs Date of service: 08/16/21 Time of Service: 09:12 Care Management Initial Assess REASON FOR HOSPITALIZATION:: Bradycardia PAST MEDICAL HISTORY/PAST SURGICAL HISTORY:: Medical History. Atrial fibrillation. Chronic diastolic CHF (congestive heart failure). CKD (chronic kidney disease), stage III. Depression. Diverticulosis of colon. DNI (do not intubate). DNR (do not resuscitate). Fibromyalgia. Gastroesophageal reflux. Goals of care, counseling/discussion. History of tobacco use. Hydronephrosis. Hyperlipidemia. Hypertension. Intestinal adhesions. Normocytic anemia. NSTEMI (non-ST elevated myocardial infarction). pt. denies this. Palliative care patient. POLST (Physician Orders for Life-Sustaining Treatment). done 02/16/20. Pulmonary hypertension. Respiratory infection. Systemic lupus erythematosus. F/U with / Ramona @ [facility] [place]. Surgical History. History of hysterectomy. History of partial colectomy. partial bowel resection-colectomy with colosotmy ad reversal, abdominal adhesions. History of surgical removal of ganglion cyst. both wrists. History of tonsillectomy and adenoidectomy. History of total right knee replacement (TKR). Hx of bilateral cataract extraction. Hx of section. Hx of knee surgery. S/p bilateral carpal tunnel release. Status post total left knee replacement (~1999) PREVIOUS FUNCTIONAL STATUS/SOCIAL/FAMILY SUPPORTS:: Chandni lives in [place] in an in law apartment at her son and daughter in law's home. She recently sold her large home, and is getting used to her new, much smaller home. She has two children, but has not had contact with her daughter for four years. Her son and daughter in law provide her with any support she is willing to ask for. She is very independent at baseline, and still drives. ADVANCE DIRECTIVES:: [employer] and AD on file, Ton Cardona listed as agent. Has patient been provided with info about the portal/API?: Yes Did the patient sign up for the portal?: No INSURANCE COVERAGE / FINANCIAL ISSUES:: [employer] CURRENT HOME/COMMUNITY SERVICES/EQUIPMENT:: Chandni has HH RN, PT, and MOW currently. She uses a FWW for ambulation. She is interested in light housekeeping, which CM informed HH of, but they are unable to fill new orders for moderate needs at this time due to staffing shortages. PRIMARY CARE PHYSICIAN:: Lyubov Tee POTENTIAL DISCHARGE NEEDS:: Resumption of HH, follow up appointments. PATIENT/FAMILY EDUCATION NEEDS:: Review discharge instructions regarding activity levels and medications, discussion of self care needs including ask me three. ANTICIPATED BARRIERS TO DISCHARGE:: None identified. TRANSPORTATION:: Via private vehicle with family. PLAN:: Chandni will have an ECHO completed today, she continues to be closely monitored and treated. She will return home with a resumption of HH services, which CM will coordinate. Her family will drive her home via private vehicle when ready. She will follow up with her PCP and discharge plan of care. CM will continue to follow.
[2021-08-16] MEDS: Ferrous Gluconate 324 MG TAB PO ×2 (09:54→19:55)
[2021-08-16] MEDS: Furosemide 80 MG TAB PO (09:55)
[2021-08-16] MEDS: Hydroxychloroquine 200 MG TAB PO (09:55)
[2021-08-16] MEDS: hydrALAZINE 10 MG TAB PO ×2 (09:55→19:56)
[2021-08-16] MEDS: Amiodarone 200 MG TAB PO (09:55)
[2021-08-16] MEDS: Famotidine 20 MG TAB PO (10:01)
--- NOTE | 2021-08-16 12:46 | PGE_ITS ---
Date of Service Date of service: 08/16/21 Time of Service: 12:46 Assessment and Plan Assessment and plan (1) Bradycardia: Status: Acute Assessment and plan: referred to observation on telemetry. will hold metoprolol. cycle troponins, echo (2) History of revision of total replacement of left knee joint: Status: Acute Assessment and plan: continue routine post operative care PT/OT (3) Paroxysmal atrial fibrillation: Status: Chronic Assessment and plan: rate in the 40's, continue amiodarone, stop lopressor anticoagulated on coumadin, follow INR (4) Chronic diastolic CHF (congestive heart failure): Status: Acute Assessment and plan: last echo in Oct 2019 Conclusion Left Ventricle : The left ventricle is normal size. The left ventricular ejection fraction is within the normal range. Mild left ventricular hypertrophy. There is normal LV segmental wall motion but there is paradoxical septal motion. Diastolic function is indeterminate but there is evidence of elevated filling pressures. LVEF is estimated to be 55-60%. Right Ventricle : Right ventricle is mildly dilated. The right ventricular systolic function appears normal. Atria : Left atrium is mild to moderately dilated. Right atrium is mildly dilated. Aortic Valve : Aortic valve is thickened but has adequate excursion. There is no hemodynamically significant aortic stenosis. Trace aortic regurgitation. Mitral Valve : The mitral valve is mildly thickened. Moderate mitral reg urgitation. No evidence of mitral valve stenosis. Great Vessels : The IVC is dilated, but collapses >50% with inspiration. Estimated RVSP is 33-41 mmHg. Compared to echocardiogram dated 09/29/2018: There is no significant change. echo pending. discussed with Dr Bledsoe Subjective Subjective Patient reports: no new complaints, feels better, tolerating liquids well, tolerating a regular diet and afebrile; denies shortness of breath Interval history since last seen: patient reports feeling better overnight. HR 50- low 60's now. Exam Const General: cooperative and no acute distress HENMT Head: normal to inspection Face and sinus: normal facial exam Eyes General: appearance normal, both eyes and all related structures Pupils: PERRL EOM: EOM intact bilaterally Neck Neck: normal visual inspection and No submandibular swelling Lymphatic: no lymphadenopathy noted Chest Chest: normal inspection of the chest and no tenderness Resp Effort & Inspection: normal respiratory effort and able to speak in complete sentences Auscultation: clear to auscultation bilaterally Cardio Rate: bradycardic Rhythm: regular rhythm GI Inspection: normal to inspection Palpation: soft, not firm, not rigid and nontender Auscultation: normal bowel sounds Skin General skin exam: no rashes or lesions noted Neuro General: patient alert, patient awake and patient oriented x3 Cognition: normal cognition Speech: speech normal Motor: muscle tone normal throughout Sensory Exam: no sensory deficits noted Extrem General: normal to inspection, full ROM, no calf tenderness bilaterally and no edema Psych Appearance: grossly normal Mental Status: mental status grossly normal Speech and Movement: speech and movement normal Affect: normal affect Objective Last Vital Signs Temp 36.7 C 08/16/21 07:45 Pulse 64 08/16/21 07:45 Resp 18 08/16/21 07:45 BP 146/69 H 08/16/21 07:45 Pulse Ox 95 08/16/21 07:45 Laboratory Results - last 24 hr 08/15/21 08/15/21 08/15/21 13:50 13:50 14:54 WBC 8.60 RBC 2.77 L Hgb 8.3 L Hct 27.3 L MCV 98.6 H MCH 30.0 MCHC 30.4 L RDW 14.4 Plt Count 325 MPV 9.1 Immature Gran % 0.5 Neutrophils % 76.9 Lymphocytes % 13.6 Monocytes % 6.7 Eosinophils % 2.0 Basophils % 0.3 Nucleated RBC % 0 Absolute Neutrophils 6.61 Absolute Lymphocytes 1.17 L Absolute Monocytes 0.58 Absolute Eosinophils 0.17 Absolute Basophils 0.03 PT INR Sodium 144 Potassium 3.5 Chloride 103 Carbon Dioxide 32.9 H Anion Gap 8.1 BUN 23 H Creatinine 2.0 H Estimated GFR/1.73 m2 23.97 Glucose 107 H Calcium 8.7 Magnesium 2.3 Total Bilirubin 0.5 AST 20 ALT 17 Alkaline Phosphatase 98 Troponin I < 0.05 Total Protein 6.8 Albumin 3.2 L COVID-19 Source Nasal/Nares SARS-CoV-2 (PCR) Negative 08/15/21 08/15/21 08/15/21 16:00 18:30 21:15 WBC RBC Hgb Hct MCV MCH MCHC RDW Plt Count MPV Immature Gran % Neutrophils % Lymphocytes % Monocytes % Eosinophils % Basophils % Nucleated RBC % Absolute Neutrophils Absolute Lymphocytes Absolute Monocytes Absolute Eosinophils Absolute Basophils PT 23.6 H INR 2.4 H Sodium Potassium Chloride Carbon Dioxide Anion Gap BUN Creatinine Estimated GFR/1.73 m2 Glucose Calcium Magnesium Total Bilirubin AST ALT Alkaline Phosphatase Troponin I Cancelled < 0.05 Total Protein Albumin COVID-19 Source SARS-CoV-2 (PCR) 08/16/21 08/16/21 08/16/21 07:00 07:00 07:00 WBC 5.35 D RBC 2.63 L Hgb 7.8 L Hct 25.4 L MCV 96.6 H MCH 29.7 MCHC 30.7 L RDW 14.4 Plt Count 289 MPV 9.4 Immature Gran % 0.4 Neutrophils % 59.6 Lymphocytes % 27.1 Monocytes % 9.7 Eosinophils % 2.8 Basophils % 0.4 Nucleated RBC % 0 Absolute Neutrophils 3.19 Absolute Lymphocytes 1.45 Absolute Monocytes 0.52 Absolute Eosinophils 0.15 Absolute Basophils 0.02 PT 21.2 H INR 2.1 H Sodium 144 Potassium 3.9 Chloride 105 Carbon Dioxide 34.8 H Anion Gap 4.2 BUN 23 H Creatinine 1.8 H Estimated GFR/1.73 m2 27.07 Glucose 88 Calcium 8.5 Magnesium Total Bilirubin AST ALT Alkaline Phosphatase Troponin I Total Protein Albumin COVID-19 Source SARS-CoV-2 (PCR) PAWSS Have you Been Recently Intoxicated or Drunk Within the Last 30 days?: No Have you Ever Experienced Previous Episodes of Alcohol Withdrawal?: No Have you ever Experienced Withdrawal Seizures?: No Have you ever Experienced Delirium Tremens(DT)s?: No Have you ever undergone Alcohol Rehabilitation Treatment (i.e, inpt ot outpatient treatment programs)?: No Have you ever Experienced Blackouts?: No Have you ever Combined Alcohol with other Downers within the last 90 days?: No Have you ever Combined Alcohol with any other Substance of Abuse during the last 90 days?: No Positive Blood Alcohol level on Presentation? [PCS.BAL]: No Evidence of Increased Autonomic Activity (i.e. HR>120, tremor, sweating, agitation, nausea)?: No Result: 0
--- NOTE | 2021-08-16 15:04 | CHAPLAIN ---
Chandni was here not too long ago and was readmitted yesterday when the home health nurse said her blood pressure and heart rate were low, although she said she doesn't feel different, she said. She is working to get in touch with her daughter in law to bring in some of Chandni's things, including her toothpaste, because said ours is really bad. Chandni hopes to be going home soon.
[2021-08-16] MEDS: Furosemide 40 MG TAB PO (16:40)
[2021-08-16] MEDS: Atorvastatin 20 MG TAB PO (19:56)
[2021-08-16] MEDS: Docusate Sodium 100 MG CAP PO (19:56)
[2021-08-16] MEDS: Warfarin 5 MG TAB PO (19:56)
[2021-08-16] MEDS: Normal Saline Flush 10 ML SYR IVP (19:58)
[2021-08-16] MEDS: Melatonin 3 MG TAB 6 MG PO (21:31)
[2021-08-16] MEDS: Pramipexole 0.25 MG TAB 0.125 MG PO (21:31)
[2021-08-17 03:26] VITALS: BP 150/62; PULSE 65; RESP 18; TEMP 36.8; O2SAT 96
[2021-08-17 07:00] VITALS: PULSE 110
[2021-08-17 07:09] LABS: Abs Immature Grans 0.03 10^3/uL (0.0-0.06); Absolute Basophil Count 0.02 10^3/uL (0.0-0.2); Absolute Eosinophil Count 0.16 10^3/uL (0.0-0.7); Absolute Lymphocyte Count 1.34 10^3/uL (1.2-3.4); Absolute Monocyte Count 0.66 10^3/uL (0.1-0.8); Absolute Neutrophil Count 4.36 10^3/uL (1.2-6.7); Basophils % 0.3; Eosinophils % 2.4; HCT 28.7 % (36.0-46.0); HGB 9.1 g/dL (11.2-15.7); Immature Grans % 0.5; Lymphocytes % 20.4; MCH 30.3 pg (27.0-33.0); MCHC 31.7 % (32.0-36.0); MCV 95.7 fL (80-95); MPV 9.4 fL (8.0-11.0); Neutrophils % 66.4; Nucleated RBC 0 %; Platelet Count 317 10^3/uL (130-400); RDW 14.1 % (11.7-14.6); WBC 6.57 10^3/uL (4.4-10.8)
[2021-08-17 07:18] LABS: Anion Gap 5.9 mmol/L (3-11); BUN 21 mg/dL (7-18); CO2 34.1 mmol/L (21.0-32.0); CREATININE 1.7 mg/dL (0.55-1.02); Calcium 8.6 mg/dL (8.5-10.1); Chloride 105 mmol/L (98-107); Estimated GFR 28.92 (mL/min/1.73m2); Glucose 110 mg/dL (74-106); Potassium 3.7 mmol/L (3.5-5.1); Sodium 145 mmol/L (136-145)
[2021-08-17 07:21] LABS: INR 1.8 (0.9-1.1); Prothrombin Time 17.4 sec (9.3-11.0)
[2021-08-17 08:58] VITALS: BP 163/60; PULSE 68; RESP 18; TEMP 36.5; O2SAT 97
--- NOTE | 2021-08-17 09:23 | PDOC.CMDIS ---
LACE Index Scoring Tool - Questions: Length of Stay (in days): 2 Acuity (Admit via E.D.?): Yes Comorbidities: Congestive Heart Failure, Liver or Renal Disease E.D. Visits: 4 - Answers: Total Score: 14 Risk of Readmission: High Risk Care Management Discharge Reason for Hospitalization: Bradycardia Discharge Plan: Chandni will return home with a resumption of services, CM notified [facility]. Her family will drive her home via private vehicle when ready. She will follow up with her PCP and discharge plan of care. Patient/Family Education Needs: Review discharge instructions, discuss Ask Me Three. Services Needed at Discharge: Home Health Care Services (Resumption)
[2021-08-17] MEDS: hydrALAZINE 10 MG TAB PO (09:38)
[2021-08-17] MEDS: Furosemide 80 MG TAB PO (09:39)
[2021-08-17] MEDS: Docusate Sodium 100 MG CAP PO (09:39)
[2021-08-17] MEDS: Hydroxychloroquine 200 MG TAB PO (09:40)
[2021-08-17] MEDS: Metoprolol CR 25 MG TABCR PO (09:40)
[2021-08-17] MEDS: Ferrous Gluconate 324 MG TAB PO (09:41)
[2021-08-17] MEDS: Amiodarone 200 MG TAB PO (09:43)
[2021-08-17] MEDS: Normal Saline Flush 10 ML SYR IVP (09:44)
--- NOTE | 2021-08-17 10:41 | DSE_ITS ---
Date of service: 08/17/21 Time of Service: 10:42 DS: Diagnosis Discharge Diagnosis (1) Bradycardia: Status: Acute (2) History of revision of total replacement of left knee joint: Status: Acute (3) Paroxysmal atrial fibrillation: Status: Chronic (4) Chronic diastolic CHF (congestive heart failure): Status: Acute Discharge Plan Disposition Patient Disposition: HOME W/HOME HEALTH SERVICE Condition: Stable Discharge Details Reason For Visit: Bradycardia Admit Date/Time: 08/15/21 14:42 Admit Provider: Kathryn Bledsoe Attending Provider: Kathryn Bledsoe Primary Care Provider: Lyubov Tee V Hospital Course Hospital Course: Patient referred to ED by home health services for pulse in the 40's, patient denies chest pain, states she has felt dizzy for weeks intermittently. She recently underwent recent knee surgery. Work up in the ED shows improved H&H, improved renal function and EKG with no acute changes. Her case is discussed with hospitalist services and she is accepted in obs on telemetry, will hold BB. otherwise has been doing well and in her usual state of health. Overnight she rested comfortable with improved heart rate with some burst of UCAF in the 110's, she was restarted on lopressor at 25 mg daily. she is asymptomatic with stable heart rate and blood pressure. she is discharged to home with resumption of home health services. she will f/u outpatient with cardiology. A cardiac event recorder was placed at discharge. discharge discussed with DR Bledsoe Home Meds and New Rx's Prescriptions: Continued hydroxychloroquine 200 mg tablet 200 mg PO DAILY RF: 0 pramipexole 0.25 mg tablet 0.125 - 0.5 mg PO QHS RF: 0 famotidine 20 mg tablet 20 mg PO .COMPLEX RF: 0 hydrocodone-acetaminophen 5-325 mg tablet 1 tab PO Q4H MDD 30mg PRN (Reason: pain) Qty: 20 RF: 0 cefadroxil 500 mg capsule 500 mg PO BID Qty: 70 RF: 0 Savella 50 MG tablet 50 mg PO BID RF: 0 tramadol [Ultram] 50 mg tablet 50 mg PO HS PRNRF: 0 atorvastatin [Lipitor] 20 mg Tablet 20 mg PO HS RF: 0 amiodarone [Pacerone] 200 mg Tablet 200 mg PO DAILY Qty: 0 RF: 0 polyethylene glycol 3350 [Miralax] 17 gram Powder In Packet 17 g PO DAILY RF: 0 albuterol sulfate [ProAir HFA] 90 mcg/actuation Hfa Aerosol Inhaler 90 mcg INHALATION DAILY RF: 0 furosemide 40 mg Tablet 40 - 80 mg PO DIRECTED RF: 0 acetaminophen [Tylenol Extra Strength] 500 mg tablet 500 mg PO Q6H PRNQty: 90 RF: 0 gabapentin 300 mg capsule 300 mg PO QHS Qty: 14 RF: 0 docusate calcium 240 mg Capsule 240 mg PO BID RF: 0 meclizine 12.5 mg tablet 12.5 mg PO BID PRNRF: 0 hydralazine 10 mg tablet 10 mg PO BID RF: 0 albuterol sulfate 2.5 mg /3 mL (0.083 %) Solution For Nebulization 2.5 mg inhalation Q4H PRNRF: 0 nitroglycerin 0.4 mg Tablet, Sublingual 0.4 mg SUBLINGUAL Q5-15M PRNRF: 0 polyethylene glycol 3350 [Miralax] 17 gram/dose Powder 17 g PO DAILY PRNRF: 0 ferrous gluconate 324 mg (38 mg iron) Tablet 324 mg PO BID RF: 0 melatonin 5 mg Tablet 5 mg PO HS RF: 0 warfarin 5 mg tablet 2.5 mg PO DAILY RF: 0 Changed metoprolol succinate 50 mg tablet extended release 24 hr 25 mg PO DAILY Qty: 0 RF: 0 Discharge Instructions Instructions: Bradycardia (DC) Additional Instructions: wear heart monitor as directed. check heart rate and blood pressure daily and with symptoms. continue routine post operative care per orthopedics. Stand Alone Forms: Nursing Discharge Form Referrals: Lyubov Tee MD [Primary Care Provider] - 08/28/21 10:30 am Keshia Martin MD [ [facility] STAFF PHYSICIAN] - Activity:: Activity as Tolerated Equipment/Supplies:: No Equipment Needed Diet:: As Tolerated Discharge Orders Discharge Orders: Discharge Order (Routine); Ordered 08/17/21 Ordered By: Bebe Cline Other Ambulatory Orders: Cardiac Event Recorder (Routine) Timeframe: [id number] Facility: [facility] - Location: Respiratory Therapy Ordered By: Bebe Cline Discharge Data Discharge Date/Time-TO BE ENTERED AT DEPARTURE: 08/17/21 14:50 DS: Summary Time Spent with Patient providing and/or coordinating discharge services: Less than 30 minutes Status at Discharge Functional status at discharge: uses cane/walker Overall status at discharge: patient is progressing back to baseline Mental Status: mental status grossly normal Speech and Movement: speech and movement normal Mood: congruent mood Affect: normal affect Exam Const General: cooperative and no acute distress HENMT Head: normal to inspection Face and sinus: normal facial exam Eyes General: appearance normal, both eyes and all related structures Pupils: PERRL EOM: EOM intact bilaterally Neck Neck: normal visual inspection and No submandibular swelling Lymphatic: no lymphadenopathy noted Chest Chest: normal inspection of the chest and no tenderness Resp Effort & Inspection: normal respiratory effort and able to speak in complete sentences Auscultation: clear to auscultation bilaterally Cardio Rate: bradycardic Rhythm: regular rhythm GI Inspection: normal to inspection Palpation: soft, not firm, not rigid and nontender Auscultation: normal bowel sounds Skin General skin exam: no rashes or lesions noted Neuro General: patient alert, patient awake and patient oriented x3 Cognition: normal cognition Speech: speech normal Motor: muscle tone normal throughout Sensory Exam: no sensory deficits noted Extrem General: normal to inspection, full ROM, no calf tenderness bilaterally and no edema Psych Appearance: grossly normal Mental Status: mental status grossly normal Speech and Movement: speech and movement normal Mood: congruent mood Affect: normal affect DS: Data Vitals/I&O Vitals and I&O: Vital Signs Temperature 36.5 C 08/17/21 08:58 Temperature Source Tympanic 08/17/21 08:58 Pulse 68 08/17/21 08:58 Pulse Rhythm Regular 08/17/21 00:00 Pulse 46 L 08/15/21 15:20 Respiratory Rate 18 08/17/21 08:58 Respiratory Effort Non-Labored 08/17/21 10:02 Respiratory Depth Normal 08/17/21 10:02 Respiratory Pattern Normal 08/17/21 10:02 Blood Pressure 163/60 H 08/17/21 08:58 Blood Pressure Mean 69 08/15/21 15:15 Blood Pressure Position Sitting 08/15/21 13:20 Pulse Oximetry 97 08/17/21 08:58 Oxygen Delivery Method Room Air 08/17/21 08:58 Oxygen Flow Rate 0 08/17/21 08:58 Pain Level 0 08/17/21 08:58 Comment 08/16/21 23:13 Intake & Output 08/16/21 08/16/21 08/17/21 11:59 23:59 11:59 Intake Total 370 / 380 Balance 370 / 380 Intake: IV Oral 370 / 370 Other: Urine Appearance Clear Clear Clear Comment per patient voided in toilet pt voids independenty. amount not measured. pt denies issues Per patient voiding all morning Voiding Methods Toilet Toilet Data Completed and Pending Labs on day of discharge: Labs from last 24 hours 08/17/21 08/17/21 08/17/21 06:40 06:40 06:40 WBC 6.57 RBC 3.00 L Hgb 9.1 L Hct 28.7 L MCV 95.7 H MCH 30.3 MCHC 31.7 L RDW 14.1 Plt Count 317 MPV 9.4 Immature Gran % 0.5 Neutrophils % 66.4 Lymphocytes % 20.4 Monocytes % 10.0 Eosinophils % 2.4 Basophils % 0.3 Nucleated RBC % 0 Absolute Neutrophils 4.36 Absolute Lymphocytes 1.34 Absolute Monocytes 0.66 Absolute Eosinophils 0.16 Absolute Basophils 0.02 PT 17.4 H INR 1.8 H Sodium 145 Potassium 3.7 Chloride 105 Carbon Dioxide 34.1 H Anion Gap 5.9 BUN 21 H Creatinine 1.7 H Estimated GFR/1.73 m2 28.92 Glucose 110 H Calcium 8.6 PFSH Medical History (Updated 08/15/21 @ 15:12 by Monserrat Dash DO) Atrial fibrillation Chronic diastolic CHF (congestive heart failure) CKD (chronic kidney disease), stage III Depression Diverticulosis of colon DNI (do not intubate) DNR (do not resuscitate) Fibromyalgia Gastroesophageal reflux Goals of care, counseling/discussion 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 POLST (Physician Orders for Life-Sustaining Treatment) done 02/16/20 Pulmonary hypertension Respiratory infection Systemic lupus erythematosus [place] [facility] [place] History Draining postoperative wound S/P I& History of hysterectomy History of partial colectomy partial bowel resection-colectomy with colosotmy ad reversal, abdominal adhesions History of surgical removal of ganglion cyst both wrists History of tonsillectomy and adenoidectomy History of total right knee replacement (TKR) Hx of bilateral cataract extraction Hx of section Hx of knee surgery S/p bilateral carpal tunnel release Status post total left knee replacement (~1999) Family History Father Heart disease Diabetes Mother Heart disease Hypertension Son Diabetes Granddaughter No problems noted. Granddaughter No problems noted. Daughter Hemochromatosis Social History Smoking/Tobacco Use Status: Former Tobacco Use Quit Date: 10/20/89 Smoking risk assessment performed?: Yes Alcohol Intake: current Alcohol Intake frequency: a few times a month Drug use: Never Substance use type: does not use Caregiver/Support person: No Household members: none Housing: house Communication Needs: Hard of Hearing and Corrective Lenses Education Level: high school Do you need help understanding health information?: Always How often do you talk on the phone with friends or family?: three or more times per week How often do you get together with friends or relatives?: three or more times per week Panel score (0-1 are the most socially isolated patients): 1 What type of physical activity do you participate in: walking and sedentary lifestyle Duration: < 15 minutes/day Special marci needs: No Seatbelt use: always Do you feel safe at home: Yes Do you feel safe in your relationship?: Yes
[2021-08-17 11:47] VITALS: BP 166/76; PULSE 57; RESP 18; TEMP 36.5; O2SAT 99
--- NOTE | 2021-08-17 13:03 | W.ORTHOCONSU ---
Date of service: 08/17/21 History of Present Illness History of Present Illness Chief Complaint: Status post revision left total knee replacement Narrative: Chandni is approximately 1 month status post a revision left total knee replacement performed on 07/05/2021 complicated by wound dehiscence which was debrided and revised approximately 2 weeks ago (08/01/2021). She had an appointment with orthopedics today, however she was unable to attend because she was an inpatient. She was examined in the hospital for a wound check in lieu of her outpatient visit today. She states that she is doing very well with the knee, but is frustrated with the knee immobilizer. She has changed her Mepilex dressing, but relates that there has been no drainage from the wound for the last few days. She denies fever or chills. Assessment and Plan Assessment and plan (1) History of revision of total replacement of left knee joint: Status: Acute (2) Draining postoperative wound: Status: Acute Assessment and plan: Chandni is doing well approximately 1 month status post a left revision total knee replacement with I&D and revision of her incision approximately 2 weeks ago. The incision appears to be well-healed without any drainage at this time. A Mepilex dressing was placed over the incision today, and she was instructed that she may take off the Mepilex dressing after 72 hours. She may also discontinue the use of her knee immobilizer and gently start to work on range of motion of her knee. We will give her a call on Friday to check on her status over the weekend and also to schedule a follow-up appointment with orthopedic. Qualifiers: Encounter type: sequela Qualified Code(s): T81.89XS - Other complications of procedures, not elsewhere classified, sequela [facility] Medical History (Updated 08/15/21 @ 15:12 by Monserrat Dash DO) Atrial fibrillation Chronic diastolic CHF (congestive heart failure) CKD (chronic kidney disease), stage III Depression Diverticulosis of colon DNI (do not intubate) DNR (do not resuscitate) Fibromyalgia Gastroesophageal reflux Goals of care, counseling/discussion 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 POLST (Physician Orders for Life-Sustaining Treatment) done 4/29/20 Pulmonary hypertension Respiratory infection Systemic lupus erythematosus [place] Ramona [place] [facility] [place] History Draining postoperative wound S/P I& History of hysterectomy History of partial colectomy partial bowel resection-colectomy with colosotmy ad reversal, abdominal adhesions History of surgical removal of ganglion cyst both wrists History of tonsillectomy and adenoidectomy History of total right knee replacement (TKR) Hx of bilateral cataract extraction Hx of section Hx of knee surgery S/p bilateral carpal tunnel release Status post total left knee replacement (~1999) Family History Father Heart disease Diabetes Mother Heart disease Hypertension Son Diabetes Granddaughter No problems noted. Granddaughter No problems noted. Daughter Hemochromatosis Social History Smoking/Tobacco Use Status: Former Tobacco Use Quit Date: 10/20/89 Smoking risk assessment performed?: Yes Alcohol Intake: current Alcohol Intake frequency: a few times a month Drug use: Never Substance use type: does not use Caregiver/Support person: No Household members: none Housing: house Communication Needs: Hard of Hearing and Corrective Lenses Education Level: high school Do you need help understanding health information?: Always How often do you talk on the phone with friends or family?: three or more times per week How often do you get together with friends or relatives?: three or more times per week Panel score (0-1 are the most socially isolated patients): 1 What type of physical activity do you participate in: walking and sedentary lifestyle Duration: < 15 minutes/day Special marci needs: No Seatbelt use: always Do you feel safe at home: Yes Do you feel safe in your relationship?: Yes Exam Const General: cooperative, healthy appearing and no acute distress Resp Effort & Inspection: normal respiratory effort and able to speak in complete sentences Neuro General: patient alert and patient awake Speech: speech normal Extrem Other: Exam of the left knee today shows that the Mepilex dressing was removed, and the incision appears to be clean, dry and intact with no open areas or drainage. It actually appears to be fairly well-healed at this time. There is scant evidence of clear drainage on the Mepilex itself. She is able to bend her knee to approximately 45 degrees to assist with reapplication of Mepilex dressing. No erythema around the incision or streaking of the leg. Psych Appearance: grossly normal Speech and Movement: speech and movement normal Affect: normal affect Attitude: cooperative Results Last Vital Signs Temp 97.7 F 08/17/21 11:47 Pulse 57 L 08/17/21 11:47 Resp 18 08/17/21 11:47 BP 166/76 H 08/17/21 11:47 Pulse Ox 99 08/17/21 11:47 Labs Result diagrams: 08/17/21 06:40 08/17/21 06:40 Labs: Laboratory Results - last 24 hr 08/17/21 08/17/21 08/17/21 06:40 06:40 06:40 WBC 6.57 RBC 3.00 L Hgb 9.1 L Hct 28.7 L MCV 95.7 H MCH 30.3 MCHC 31.7 L RDW 14.1 Plt Count 317 MPV 9.4 Immature Gran % 0.5 Neutrophils % 66.4 Lymphocytes % 20.4 Monocytes % 10.0 Eosinophils % 2.4 Basophils % 0.3 Nucleated RBC % 0 Absolute Neutrophils 4.36 Absolute Lymphocytes 1.34 Absolute Monocytes 0.66 Absolute Eosinophils 0.16 Absolute Basophils 0.02 PT 17.4 H INR 1.8 H Sodium 145 Potassium 3.7 Chloride 105 Carbon Dioxide 34.1 H Anion Gap 5.9 BUN 21 H Creatinine 1.7 H Estimated GFR/1.73 m2 28.92 Glucose 110 H Calcium 8.6
--- NOTE | 2021-09-20 08:48 | W.CARDEVENT ---
Date of service: 09/20/21 Time of Service: 08:48 Cardiac Event Recorder Referring Provider:: Kathryn Bledsoe Indications:: Bradycardia Cardiac Event Note: This is a 30-day event monitor reportedly ordered for bradycardia Predominant rhythm was sinus. Average heart rate was 66. Minimum was 44, maximum was 141 There were no significant ventricular dysrhythmias Atrial premature beats were noted. There were runs of atrial premature beats as well as what appeared to be self-limited atrial fibrillation (interpretation confounded by artifact). There was no high-grade AV block, no pauses greater than 3 seconds Rates in atrial fibrillation ranged from the 80s to a maximum of 144 No patient symptoms were reported
== END 2021-08-17 14:50 | disposition home health service (06) ==
LOC: ER 15:12 → MS 15:57
PROVIDERS: Nurse Practitioner Acute Care; Admitting Provider Internal Medicine; Emergency Provider Physician Assistant; PCP Family Medicine; Visit Provider Internal Medicine
DX: R00.1 Bradycardia, unspecified (principal); I48.0 Paroxysmal atrial fibrillation; I50.32 Chronic diastolic (congestive) heart failure; R42 Dizziness and giddiness; N18.30 Chronic kidney disease, stage 3 unspecified; F32.A Depression, unspecified; M79.7 Fibromyalgia; K21.9 Gastro-esophageal reflux disease without esophagitis; Z87.891 Personal history of nicotine dependence; E78.5 Hyperlipidemia, unspecified; I13.0 Hypertensive heart and chronic kidney disease with heart failure and stage 1 through stage 4 chronic kidney disease, or unspecified chronic kidney disease; I25.2 Old myocardial infarction; I27.20 Pulmonary hypertension, unspecified; M32.9 Systemic lupus erythematosus, unspecified; Z96.652 Presence of left artificial knee joint; Z79.01 Long term (current) use of anticoagulants; Z20.822 Contact with and (suspected) exposure to COVID-19
CPT/HCPCS: 36415; 80048; 80053; 87635; 93005; 96360; 96361; 99285; 71045; 83735; 84484; 85025; 85610; 93010; 99217; 99233; G0378

== ENCOUNTER → 2021-08-24 09:25 | Outpatient (BNVA) | payer MEDICARE, OTHER, SELFPAY | PROVIDERS: PCP Family Medicine; Referring Provider Family Medicine | DX: Z47.1 Aftercare following joint replacement surgery (principal); Z96.652 Presence of left artificial knee joint; T81.89XD Other complications of procedures, not elsewhere classified, subsequent encounter; R29.898 Other symptoms and signs involving the musculoskeletal system ==

== ENCOUNTER 2021-08-28 14:03 | Outpatient (REF) | payer MEDICARE, OTHER, SELFPAY | END 2021-08-28 14:04 | disposition home or self-care (01) | LOC: NCHCN 14:03 | PROVIDERS: PCP Family Medicine; Visit Provider Family Medicine | DX: N39.0 Urinary tract infection, site not specified (principal) | CPT/HCPCS: 87086 ==

== ENCOUNTER 2021-09-20 08:48 | Outpatient (CLI) | payer MEDICARE, OTHER, SELFPAY | END 2021-09-20 08:49 | LOC: CARDO 09-21 09:42 | PROVIDERS: PCP Family Medicine; Referring Provider Internal Medicine; Visit Provider Internal Medicine Cardiovascular Disease | DX: R00.1 Bradycardia, unspecified (principal); I49.1 Atrial premature depolarization; I48.91 Unspecified atrial fibrillation | CPT/HCPCS: 93272 ==

== ENCOUNTER → 2021-09-20 11:27 | Outpatient (BNVA) | payer MEDICARE, OTHER, SELFPAY | PROVIDERS: PCP Family Medicine; Referring Provider Family Medicine; Visit Provider Student in an Organized Health Care Education/Training Program | DX: Z47.1 Aftercare following joint replacement surgery (principal); Z96.652 Presence of left artificial knee joint ==

== ENCOUNTER 2021-10-08 16:08 | Outpatient (CLI) | payer MEDICARE, OTHER, SELFPAY | END 2021-10-08 16:09 | disposition home or self-care (01) | LOC: DIORS 16:08 | PROVIDERS: PCP Family Medicine; Referring Provider Family Medicine; Visit Provider Student in an Organized Health Care Education/Training Program | DX: Z47.1 Aftercare following joint replacement surgery (principal); Z96.652 Presence of left artificial knee joint ==

== ENCOUNTER 2021-11-19 15:45 | Outpatient (REF) | payer MEDICARE, SELFPAY ==
[2021-11-19 21:24] LABS: Abs Immature Grans 0.02 10^3/uL (0.0-0.06); Absolute Basophil Count 0.02 10^3/uL (0.0-0.2); Absolute Monocyte Count 0.64 10^3/uL (0.1-0.8); Absolute Neutrophil Count 4.24 10^3/uL (1.2-6.7); Basophils % 0.3; Eosinophils % 3.1; HCT 35.6 % (36.0-46.0); HGB 11.1 g/dL (11.2-15.7); Immature Grans % 0.3; Lymphocytes % 20.2; MCH 29.9 pg (27.0-33.0); MCHC 31.2 % (32.0-36.0); MPV 10.6 fL (8.0-11.0); Neutrophils % 66.1; Nucleated RBC 0 %; Platelet Count 316 10^3/uL (130-400); RBC 3.71 10^6/uL (3.93-5.22); RDW 13.8 % (11.7-14.6); RDW-SD 49.1 fL; WBC 6.42 10^3/uL (4.4-10.8)
[2021-11-19 21:40] LABS: ALT 23 U/L (14-59); AST 27 U/L (15-37); Albumin 3.9 g/dL (3.4-5.0); Alkaline Phosphatase 123 U/L (46-116); Anion Gap 9.1 mmol/L (3-11); BUN 44 mg/dL (7-18); Bilirubin, Total 0.4 mg/dL (0.2-1.0); CO2 28.9 mmol/L (21.0-32.0); CREATININE 2.6 mg/dL (0.55-1.02); Chloride 101 mmol/L (98-107); Estimated GFR 17.71 (mL/min/1.73m2); Glucose 130 mg/dL (74-106); Potassium 3.7 mmol/L (3.5-5.1); Sodium 139 mmol/L (136-145)
[2021-11-19 21:43] LABS: Bilirubin Negative (Negative); Blood Negative (Negative); Clarity Clear (Clear); Glucose Negative (Negative); Ketones Negative (Negative); Leukocyte Esterase Negative (Negative); Nitrite Negative (Negative); Specific Gravity 1.025 (1.005-1.025); Urobilinogen 0.2 EU/dL (Up TO 0.2); pH 5.5 (5-8)
== END 2021-11-19 15:46 | disposition home or self-care (01) ==
LOC: NCHCN 15:45
PROVIDERS: PCP Family Medicine; Visit Provider Family Medicine
DX: L02.214 Cutaneous abscess of groin (principal); N39.0 Urinary tract infection, site not specified
CPT/HCPCS: 80053; 81003; 85025

== ENCOUNTER 2021-11-30 13:41 | Outpatient (REF) | payer MEDICARE, SELFPAY ==
[2021-11-30 20:13] LABS: HCT 34.5 % (36.0-46.0); HGB 10.5 g/dL (11.2-15.7)
[2021-11-30 20:25] LABS: BUN 33 mg/dL (7-18); Chloride 105 mmol/L (98-107); Estimated GFR 23.97 (mL/min/1.73m2); Glucose 91 mg/dL (74-106); Magnesium 2.7 mg/dL (1.8-2.4); NT-proBNP 483 pg/mL (<300); Potassium 4.6 mmol/L (3.5-5.1); Sodium 144 mmol/L (136-145); TSH (W/Ref FT4) 1.33 uIU/mL (0.36-3.74)
[2021-11-30 20:27] LABS: Hemoglobin A1C 5.9 % (<5.7)
== END 2021-11-30 13:42 | disposition home or self-care (01) ==
LOC: NCHCN 13:41
PROVIDERS: PCP Family Medicine; Visit Provider Family Medicine
DX: R60.0 Localized edema (principal); R06.09 Other forms of dyspnea; I48.91 Unspecified atrial fibrillation; N18.9 Chronic kidney disease, unspecified; R79.89 Other specified abnormal findings of blood chemistry
CPT/HCPCS: 80048; 83036; 83735; 83880; 84443; 85014; 85018

== ENCOUNTER → 2022-01-14 14:14 | Outpatient (BNVA) | payer MEDICARE, SELFPAY | PROVIDERS: PCP Family Medicine; Visit Provider Student in an Organized Health Care Education/Training Program | DX: M65.9 Synovitis and tenosynovitis, unspecified (principal); Z96.652 Presence of left artificial knee joint ==

== ENCOUNTER 2022-02-12 16:19 | Outpatient (REF) | payer MEDICARE, SELFPAY ==
[2022-02-12 17:05] LABS: HCT 37.6 % (36.0-46.0); HGB 11.6 g/dL (11.2-15.7)
[2022-02-12 17:09] LABS: Anion Gap 5.7 mmol/L (3-11); BUN 25 mg/dL (7-18); CO2 29.3 mmol/L (21.0-32.0); CREATININE 1.8 mg/dL (0.55-1.02); Calculated LDL 127 mg/dL (<100); Chloride 106 mmol/L (98-107); Cholesterol 216 mg/dL (<200); Estimated GFR 27.07 (mL/min/1.73m2); Glucose 126 mg/dL (74-106); HDL Cholesterol 64 mg/dL (40-60); Potassium 4.5 mmol/L (3.5-5.1); Sodium 141 mmol/L (136-145); Triglyceride 125 mg/dL (<150)
[2022-02-19 10:28] LABS: O-desmethyltramadol 6345 ng/mL (Cutoff:25); Tramadol 4645 ng/mL (Cutoff:25)
== END 2022-02-12 16:20 | disposition home or self-care (01) ==
LOC: NCHCN 16:19
PROVIDERS: PCP Family Medicine; Visit Provider Family Medicine
DX: I10 Essential (primary) hypertension (principal); E78.5 Hyperlipidemia, unspecified; D64.9 Anemia, unspecified; R60.0 Localized edema; N18.9 Chronic kidney disease, unspecified; Z51.81 Encounter for therapeutic drug level monitoring
CPT/HCPCS: 80048; 80061; 80373; 85014; 85018

== ENCOUNTER 2022-03-06 11:08 | Outpatient (REF) | payer MEDICARE, SELFPAY ==
[2022-03-06 16:07] LABS: Anion Gap 11.1 mmol/L (3-11); BUN 30 mg/dL (7-18); CO2 28.9 mmol/L (21.0-32.0); CREATININE 1.9 mg/dL (0.55-1.02); Calculated LDL 108 mg/dL (<100); Chloride 104 mmol/L (98-107); Cholesterol 203 mg/dL (<200); Estimated GFR 25.44 (mL/min/1.73m2); Glucose 111 mg/dL (74-106); HDL Cholesterol 70 mg/dL (40-60); Potassium 4.3 mmol/L (3.5-5.1); Sodium 144 mmol/L (136-145); Triglyceride 127 mg/dL (<150)
[2022-03-06 16:19] LABS: Creatine Kinase 103 U/L (26-192)
== END 2022-03-06 11:09 | disposition home or self-care (01) ==
LOC: NCHCN 11:08
PROVIDERS: PCP Family Medicine; Visit Provider Family Medicine
DX: I10 Essential (primary) hypertension (principal); E78.5 Hyperlipidemia, unspecified; N18.9 Chronic kidney disease, unspecified; I50.9 Heart failure, unspecified; I25.2 Old myocardial infarction
CPT/HCPCS: 80048; 80061; 82550

== ENCOUNTER → 2022-03-22 09:27 | Outpatient (BNVA) | payer MEDICARE, SELFPAY | PROVIDERS: PCP Family Medicine; Referring Provider Family Medicine; Visit Provider Physician Assistant Surgical | DX: Z01.818 Encounter for other preprocedural examination (principal); Z96.652 Presence of left artificial knee joint; T84.82XA Fibrosis due to internal orthopedic prosthetic devices, implants and grafts, initial encounter ==

== ENCOUNTER 2022-03-27 03:44 | Outpatient (CLI) | payer MEDICARE, SELFPAY ==
[2022-03-27 12:22] LABS: C-Reactive Protein 0.16 mg/dL (0.0-0.3)
== END 2022-03-27 03:45 | disposition home or self-care (01) ==
LOC: LBO 03:44
PROVIDERS: PCP Family Medicine; Visit Provider Student in an Organized Health Care Education/Training Program
DX: T84.82XA Fibrosis due to internal orthopedic prosthetic devices, implants and grafts, initial encounter (principal); Z01.818 Encounter for other preprocedural examination; Z96.652 Presence of left artificial knee joint
CPT/HCPCS: 36415; 86140

== ENCOUNTER 2022-04-01 03:53 | Outpatient (CLI) | payer MEDICARE, SELFPAY ==
[2022-04-01 11:58] LABS: Source Nasal/Nares
[2022-04-01 16:19] LABS: COVID-19 PCR Negative (Negative)
== END 2022-04-01 03:54 | disposition home or self-care (01) ==
PROVIDERS: PCP Family Medicine; Visit Provider Student in an Organized Health Care Education/Training Program
DX: Z20.822 Contact with and (suspected) exposure to COVID-19 (principal); Z01.818 Encounter for other preprocedural examination
CPT/HCPCS: 87635; U0005

== ENCOUNTER 2022-04-03 12:33 | Day surgery (SDC) | payer MEDICARE, SELFPAY ==
[2022-04-03] VITALS (8 sets, daily range): BP systolic 117–185; BP diastolic 39–77; PULSE 53–63; RESP 10–18; TEMP 36.2–36.4; O2SAT 93–99; BMI 33.9
--- NOTE | 2022-04-03 12:26 | ANES.PREOP_ITS ---
General Info Date of Service Date Performed: 04/03/22 Height: 5 ft 6 in Weight: 95.254 kg Body Mass Index (BMI): 33.9 Surgical Procedure: Operation Date: 04/03/22 14:40 Proposed Procedure Side Surgeon p Knee Arthroscopy Synovectomy Left Cordell Gipson MD Meds Allergies and Home Medications Allergies Allergy/AdvReac Type Severity Reaction Status Date / Time Sulfa (Sulfonamide AdvReac vomiting Verified 04/02/22 10:45 Antibiotics) cat scan dye AdvReac Hives Uncoded 04/02/22 10:45 Home Medication Medication Instructions Recorded milnacipran 50 mg tablet (Savella) 50 mg PO BID 11/24/17 amiodarone 200 mg tablet (Pacerone) 200 mg PO DAILY #0 tabs 11/14/19 albuterol sulfate 90 mcg/actuation 90 mcg inhalation DAILY 02/13/20 aerosol inhaler (ProAir HFA) hydroxychloroquine 200 mg tablet 200 mg PO DAILY 05/31/21 famotidine 20 mg tablet 20 mg PO .COMPLEX 06/29/21 pramipexole 0.25 mg tablet 0.125 - 0.5 mg PO QHS 06/29/21 tramadol 50 mg tablet (Ultram) 50 mg PO HS PRN 06/29/21 acetaminophen 500 mg tablet 500 mg PO Q6H PRN #90 tabs 07/04/21 (Tylenol Extra Strength) albuterol sulfate 2.5 mg/3 mL 2.5 mg inhalation Q4H PRN 07/16/21 (0.083 %) solution for nebulization melatonin 5 mg tablet 5 mg PO HS 08/15/21 nitroglycerin 0.4 mg sublingual 0.4 mg sublingual Q5-15M PRN 08/15/21 tablet polyethylene glycol 3350 17 17 g PO DAILY PRN 08/15/21 gram/dose oral powder (Miralax) metoprolol succinate 50 mg 25 mg PO DAILY #0 tabs 08/17/21 tablet,extended release 24 hr apixaban 2.5 mg tablet (Eliquis) 2.5 mg PO BID 10/08/21 atorvastatin 20 mg tablet (Lipitor) 10 mg PO HS 03/22/22 buspirone 7.5 mg tablet 7.5 mg PO BID 03/22/22 ferrous sulfate 27 mg iron tablet 27 mg PO DAILY 03/22/22 furosemide 40 mg tablet 40 mg PO BID 03/22/22 losartan 25 mg tablet 25 mg PO DAILY 03/22/22 tramadol 50 mg tablet 50 mg PO Q6H PRN #5 tabs 04/03/22 Current Visit Medications: Current Medications Generic Name Dose Route Start Last Admin Trade Name Anthony PRN Reason Stop Dose Admin Ringer's Solution 1,000 mls @ 80 mls/hr 04/03/22 06:00 IV 05/02/22 23:59 INFUSION TYE Cefazolin Sodium/Dextrose 2 gm in 50 mls @ 100 mls/hr 04/03/22 06:00 Ancef Duplex IVPB 05/02/22 23:59 PREOP TYE Ringer's Solution 1,000 mls @ 30 mls/hr 04/03/22 06:00 IV INFUSION TYE IV Miscellaneous Supplies 1 each 04/03/22 06:00 Iv Access IV 05/02/22 23:59 DIRECTED TYE Sodium Chloride 0 ml 04/03/22 06:00 Normal Saline Flush 10 Ml Syr IV 05/02/22 23:59 PRN PRN Sodium Chloride 0 ml 04/03/22 06:00 Normal Saline 10 Ml Vial IJ 05/02/22 23:59 DIRECTED PRN Sterile Water 0 ml 04/03/22 06:00 Water,Injection,Sterile 10 Ml Vial IJ 05/02/22 23:59 DIRECTED PRN PFSH Active Problems Active Problems: Problem Status Onset Code Hammertoe of second toe of left foot M20.42 Shortness of breath R06.02 Paroxysmal atrial fibrillation I48.0 Hyperlipidemia E78.5 DVT prophylaxis Z29.9 Discharge planning issues Z02.9 Acute on chronic diastolic CHF (congestive heart failure), NYHA class 1 I50.33 Elevated troponin R79.89 Chronic diastolic CHF (congestive heart failure) I50.32 Chronic respiratory failure with hypoxia J96.11 Pulmonary hypertension I27.20 Normocytic anemia D64.9 Supratherapeutic INR R79.1 Fall W19.XXXA Ambulatory dysfunction R26.2 POLST (Physician Orders for Life-Sustaining Treatment) Z78.9 DNR (do not resuscitate) Z66 DNI (do not intubate) Z78.9 Goals of care, counseling/discussion Z71.89 COVID-19 ruled out Z03.818 Acute and chronic respiratory failure with hypoxia J96.21 Status post total left knee replacement ~1999 Z96.652 Status post total right knee replacement ~1997 Z96.651 UTI (urinary tract infection) N39.0 Hernia K46.9 Cyst of left kidney N28.1 Painful total knee replacement, left T84.84XA, Z96.652 Sensorineural hearing loss, bilateral H90.3 Anemia D64.9 SOB (shortness of breath) R06.02 Incisional hernia K43.2 History of arthroplasty of left knee Z96.652 History of revision of total replacement of left knee joint 07/05/21 Z96.652 Draining postoperative wound T81.89XA Bradycardia R00.1 Bradycardia R00.1 Dizziness R42 Furuncle of groin L02.224 Synovitis M65.9 Arthrofibrosis of total knee arthroplasty 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 denies this Diverticulosis of colon Fibromyalgia Gastroesophageal reflux History of tobacco use Hydronephrosis Hyperlipidemia Hypertension Intestinal adhesions NSTEMI (non-ST elevated myocardial infarction) pt. 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 Respiratory infection Systemic lupus erythematosus [place] [facility] [place] History Surgical History History of hysterectomy History of partial colectomy partial bowel resection-colectomy with colosotmy ad reversal, abdominal adhesions History of surgical removal of ganglion cyst both wrists History of tonsillectomy and adenoidectomy History of total right knee replacement (TKR) Hx of bilateral cataract extraction Hx of section Hx of knee surgery S/p bilateral carpal tunnel release Tobacco Smoking/Tobacco Use Status: Former Tobacco Use Alcohol Alcohol Intake: current Alcohol intake frequency: a few times a month Substance Use Substance use: Never Substance use type: does not use Vital Signs and Lab Results Lab Results Blood Type / Crossmatch: No Data to Display Complete Blood Count: No Data to Display Complete Metabolic Panel: Sodium Level 144 mmol/L (136-145) 03/06/22 10:45 Potassium Level 4.3 mmol/L (3.5-5.1) 03/06/22 10:45 Chloride Level 104 mmol/L (98-107) 03/06/22 10:45 Carbon Dioxide Level 28.9 mmol/L (21.0-32.0) 03/06/22 10:45 Blood Urea Nitrogen 30 mg/dL (7-18) H 03/06/22 10:45 Creatinine 1.9 mg/dL (0.55-1.02) H 03/06/22 10:45 Estimated GFR/1.73 m2 25.44 (mL/min/1.73m2) 03/06/22 10:45 Calcium Level 9.0 mg/dL (8.5-10.1) 03/06/22 10:45 Glucose Level 111 mg/dL (74-106) H 03/06/22 10:45 C-Reactive Protein 0.16 mg/dL (0.0-0.3) 03/27/22 11:45 Liver Function Panel: No Data to Display Coagulation Panel: No Data to Display Cardiac Panel: Creatine Kinase 103 U/L (26-192) 03/06/22 Arterial Blood Gas: No Data to Display Venous Blood Gas: No Data to Display Pancreas Panel: No Data to Display Thyroid Panel: No Data to Display Infectious Disease: Coronavirus (COVID-19)(PCR) Negative (Negative) 04/01/22 09:35 Coronavirus 2019 Source Nasal/Nares 04/01/22 09:35 Blood Cultures: No Data to Display Toxicology Panel: No Data to Display Imaging and Studies Imaging and Studies Study information below may be from another EMR and interpreted by another provider. Please see original notes in EMR for more complete details. EKG Summary: 01/02/2021 Conclusion Sinus rhythm...normal P axis, V-rate 60- 99 Prolonged LA interval...LA >220, V-rate 50- 90 Left bundle branch block...QRSd>120, broad/notched R Stress Test Summary: 12/06/2019 Stress ECG Conclusion 1. Electrocardiographically nondiagnostic due to resting EKG abnormalities (LBBB) and an adequate heart rate achieved Echocardiogram Summary: 11/11/2019 Indications: CHF Conclusion Left Ventricle : The left ventricle is normal size. The left ventricular ejection fraction is within the normal range. Mild left ventricular hypertrophy. There is normal LV segmental wall motion but there is paradoxical septal motion. Diastolic function is indeterminate but there is evidence of elevated filling pressures. LVEF is estimated to be 55-60%. Right Ventricle : Right ventricle is mildly dilated. The right ventricular systolic function appears normal. Atria : Left atrium is mild to moderately dilated. Right atrium is mildly dilated. Aortic Valve : Aortic valve is thickened but has adequate excursion. There is no hemodynamically significant aortic stenosis. Trace aortic regurgitation. Mitral Valve : The mitral valve is mildly thickened. Moderate mitral regurgitation. No evidence of mitral valve stenosis. Great Vessels : The IVC is dilated, but collapses >50% with inspiration. Estimated RVSP is 33-41 mmHg. Compared to echocardiogram dated 09/29/2018: There is no significant change. Carotid Artery Summary:: 11/02/2018 IMPRESSION: Mild amount of plaque in the proximal right internal carotid artery. Mild velocity elevation corresponding to 50-60% stenosis. No significant left internal carotid artery stenosis. 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 Clinical correlation recommended. Anesthesia Assessment and Plan Anesthesia History Personal History: No History of Anesthesia Complications Family History: No Family History of Anesthesia Complications Exercise Tolerance Exercise Tolerance: Metabolic Equivalents<4 Pertinent Negatives Pertinent Negatives: No Symptoms of GERD, No Major Cardiovascular Symptoms or Complaints, No Major Pulmonary Symptoms or Complaints and No History of CVA/TIA Cardiac & Pulmonary Exam Cardiac Exam: Normal S1/S2 Heart Sounds Pulmonary Exam: Clear Bilateral Breath Sounds Implantable Cardiac Device Does patient have a Pacemaker or an ICD?: No Airway Exam Known Difficult Airway: No Mallampati Class: 2 Mouth Opening: Normal (> 3cm) Thyromental Distance: Greater than 3 cm Neck Range of Motion: Full ROM Neck Circumference: Normal Teeth Condition: Normal Dentition, Removable Dentures/Plates Upper and Removable Dentures/Plates Lower ASA Classification ASA Score: ASA 2 Emergency Case?: No NPO Status NPO Status: NPO Clears >2 hours, Solids >8 hours Anesthesia Plan Resuscitation Status: Full Code Anesthesia Technique: General Anesthesia Airway Planned: LMA Monitors Used: Standard Monitors
--- NOTE | 2022-04-03 12:40 | W.PM.DSUDISC ---
Discharge Plan Disposition Patient Disposition: HOME Condition: Stable Discharge Details Reason For Visit: Arthroscopic synovectomy Attending Provider: Cordell Gipson Primary Care Provider: Lyubov Tee V Home Meds and New Rx's Prescriptions: Continued hydroxychloroquine 200 mg tablet 200 mg PO DAILY pramipexole 0.25 mg tablet 0.125 - 0.5 mg PO QHS famotidine 20 mg tablet 20 mg PO .COMPLEX Rx Instructions: 20 mg PO twice per week; tuesdays and . Eliquis 2.5 mg tablet 2.5 mg PO BID atorvastatin [Lipitor] 20 mg tablet 10 mg PO HS ferrous sulfate 27 mg iron tablet 27 mg PO DAILY furosemide 40 mg tablet 40 mg PO BID losartan 25 mg tablet 25 mg PO DAILY buspirone 7.5 mg tablet 7.5 mg PO BID Savella 50 MG tablet 50 mg PO BID tramadol [Ultram] 50 mg tablet 50 mg PO HS PRN amiodarone [Pacerone] 200 mg Tablet 200 mg PO DAILY Qty: 0 0RF albuterol sulfate [ProAir HFA] 90 mcg/actuation Hfa Aerosol Inhaler 90 mcg INHALATION DAILY acetaminophen [Tylenol Extra Strength] 500 mg tablet 500 mg PO Q6H PRNQty: 90 0RF albuterol sulfate 2.5 mg /3 mL (0.083 %) Solution For Nebulization 2.5 mg inhalation Q4H PRN nitroglycerin 0.4 mg Tablet, Sublingual 0.4 mg SUBLINGUAL Q5-15M PRN polyethylene glycol 3350 [Miralax] 17 gram/dose Powder 17 g PO DAILY PRN melatonin 5 mg Tablet 5 mg PO HS metoprolol succinate 50 mg tablet extended release 24 hr 25 mg PO DAILY Qty: 0 0RF Discharge Instructions Stand Alone Forms: Brandan Knee Arthroscopy Equipment/Supplies: Partial Weight Bearing Crutches Activity:: Activity as Tolerated Remove Dressings/Wound Care:: 72 hours Shower/Bathe:: 72 hours Diet:: As Tolerated Discharge Orders Discharge Orders: Discharge Order (Routine); Ordered 04/03/22 Ordered By: Lyubov Fonseca DS: Diagnosis Discharge Diagnosis (1) History of revision of total replacement of left knee joint: Status: Acute
--- NOTE | 2022-04-03 13:23 | ANES.PREOP_ITS ---
General Info Date of Service Date Performed: 04/03/22 Height: 5 ft 6 in Weight: 95.254 kg Body Mass Index (BMI): 33.9 Surgical Procedure: Operation Date: 04/03/22 14:40 Proposed Procedure Side Surgeon p Knee Arthroscopy Synovectomy Left Cordell Gipson MD Meds Allergies and Home Medications Allergies Allergy/AdvReac Type Severity Reaction Status Date / Time Sulfa (Sulfonamide AdvReac vomiting Verified 04/02/22 10:45 Antibiotics) cat scan dye AdvReac Hives Uncoded 04/02/22 10:45 Home Medication Medication Instructions Recorded milnacipran 50 mg tablet (Savella) 50 mg PO BID 11/24/17 amiodarone 200 mg tablet (Pacerone) 200 mg PO DAILY #0 tabs 11/14/19 albuterol sulfate 90 mcg/actuation 90 mcg inhalation DAILY 02/13/20 aerosol inhaler (ProAir HFA) hydroxychloroquine 200 mg tablet 200 mg PO DAILY 05/31/21 famotidine 20 mg tablet 20 mg PO .COMPLEX 06/29/21 pramipexole 0.25 mg tablet 0.125 - 0.5 mg PO QHS 06/29/21 tramadol 50 mg tablet (Ultram) 50 mg PO HS PRN 06/29/21 acetaminophen 500 mg tablet 500 mg PO Q6H PRN #90 tabs 07/04/21 (Tylenol Extra Strength) albuterol sulfate 2.5 mg/3 mL 2.5 mg inhalation Q4H PRN 07/16/21 (0.083 %) solution for nebulization melatonin 5 mg tablet 5 mg PO HS 08/15/21 nitroglycerin 0.4 mg sublingual 0.4 mg sublingual Q5-15M PRN 08/15/21 tablet polyethylene glycol 3350 17 17 g PO DAILY PRN 08/15/21 gram/dose oral powder (Miralax) metoprolol succinate 50 mg 25 mg PO DAILY #0 tabs 08/17/21 tablet,extended release 24 hr apixaban 2.5 mg tablet (Eliquis) 2.5 mg PO BID 10/08/21 atorvastatin 20 mg tablet (Lipitor) 10 mg PO HS 03/22/22 buspirone 7.5 mg tablet 7.5 mg PO BID 03/22/22 ferrous sulfate 27 mg iron tablet 27 mg PO DAILY 03/22/22 furosemide 40 mg tablet 40 mg PO BID 03/22/22 losartan 25 mg tablet 25 mg PO DAILY 03/22/22 tramadol 50 mg tablet 50 mg PO Q6H PRN #5 tabs 04/03/22 Current Visit Medications: Current Medications Generic Name Dose Route Start Last Admin Trade Name Lewisq PRN Reason Stop Dose Admin Acetaminophen 650 mg 04/03/22 12:38 Acetaminophen 325 Mg Tab PO Q4H PRN PRN Ringer's Solution 1,000 mls @ 80 mls/hr 04/03/22 06:00 IV 05/02/22 23:59 INFUSION TYE Cefazolin Sodium/Dextrose 2 gm in 50 mls @ 100 mls/hr 04/03/22 06:00 Ancef Duplex IVPB 05/02/22 23:59 PREOP TYE Ringer's Solution 1,000 mls @ 30 mls/hr 04/03/22 06:00 IV INFUSION TYE Ondansetron HCl 4 mg/ Sodium 52 mls @ 200 mls/hr 04/03/22 12:38 Chloride IVPB Q6H PRN PRN IV Miscellaneous Supplies 1 each 04/03/22 06:00 Iv Access IV 05/02/22 23:59 DIRECTED TYE Oxycodone HCl 5 mg 04/03/22 12:38 Oxycodone 5 Mg Tab PO Q3H PRN PRN Pain Sodium Chloride 0 ml 04/03/22 06:00 Normal Saline Flush 10 Ml Syr IV 05/02/22 23:59 PRN PRN Sodium Chloride 0 ml 04/03/22 06:00 Normal Saline 10 Ml Vial IJ 05/02/22 23:59 DIRECTED PRN Sterile Water 0 ml 04/03/22 06:00 Water,Injection,Sterile 10 Ml Vial IJ 05/02/22 23:59 DIRECTED PRN PFSH Active Problems Active Problems: Problem Status Onset Code Hammertoe of second toe of left foot M20.42 Shortness of breath R06.02 Paroxysmal atrial fibrillation I48.0 Hyperlipidemia E78.5 DVT prophylaxis Z29.9 Discharge planning issues Z02.9 Acute on chronic diastolic CHF (congestive heart failure), NYHA class 1 I50.33 Elevated troponin R79.89 Chronic diastolic CHF (congestive heart failure) I50.32 Chronic respiratory failure with hypoxia J96.11 Pulmonary hypertension I27.20 Normocytic anemia D64.9 Supratherapeutic INR R79.1 Fall W19.XXXA Ambulatory dysfunction R26.2 POLST (Physician Orders for Life-Sustaining Treatment) Z78.9 DNR (do not resuscitate) Z66 DNI (do not intubate) Z78.9 Goals of care, counseling/discussion Z71.89 COVID-19 ruled out Z03.818 Acute and chronic respiratory failure with hypoxia J96.21 Status post total left knee replacement ~1999 Z96.652 Status post total right knee replacement ~1997 Z96.651 UTI (urinary tract infection) N39.0 Hernia K46.9 Cyst of left kidney N28.1 Painful total knee replacement, left T84.84XA, Z96.652 Sensorineural hearing loss, bilateral H90.3 Anemia D64.9 SOB (shortness of breath) R06.02 Incisional hernia K43.2 History of arthroplasty of left knee Z96.652 History of revision of total replacement of left knee joint 07/05/21 Z96.652 Draining postoperative wound T81.89XA Bradycardia R00.1 Bradycardia R00.1 Dizziness R42 Furuncle of groin L02.224 Synovitis M65.9 Arthrofibrosis of total knee arthroplasty 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 denies this Diverticulosis of colon Fibromyalgia Gastroesophageal reflux History of tobacco use Hydronephrosis Hyperlipidemia Hypertension Intestinal adhesions NSTEMI (non-ST elevated myocardial infarction) pt. 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 Respiratory infection Systemic lupus erythematosus F/U with / Ramona @ [facility] [place] Surgical History Surgical History History of hysterectomy History of partial colectomy partial bowel resection-colectomy with colosotmy ad reversal, abdominal adhesions History of surgical removal of ganglion cyst both wrists History of tonsillectomy and adenoidectomy History of total right knee replacement (TKR) Hx of bilateral cataract extraction Hx of section Hx of knee surgery S/p bilateral carpal tunnel release Tobacco Smoking/Tobacco Use Status: Former Tobacco Use Alcohol Alcohol Intake: current Alcohol intake frequency: a few times a month Substance Use Substance use: Never Substance use type: does not use Vital Signs and Lab Results Lab Results Blood Type / Crossmatch: No Data to Display Complete Blood Count: No Data to Display Complete Metabolic Panel: Sodium Level 144 mmol/L (136-145) 03/06/22 10:45 Potassium Level 4.3 mmol/L (3.5-5.1) 03/06/22 10:45 Chloride Level 104 mmol/L (98-107) 03/06/22 10:45 Carbon Dioxide Level 28.9 mmol/L (21.0-32.0) 03/06/22 10:45 Blood Urea Nitrogen 30 mg/dL (7-18) H 03/06/22 10:45 Creatinine 1.9 mg/dL (0.55-1.02) H 03/06/22 10:45 Estimated GFR/1.73 m2 25.44 (mL/min/1.73m2) 03/06/22 10:45 Calcium Level 9.0 mg/dL (8.5-10.1) 03/06/22 10:45 Glucose Level 111 mg/dL (74-106) H 03/06/22 10:45 C-Reactive Protein 0.16 mg/dL (0.0-0.3) 03/27/22 11:45 Liver Function Panel: No Data to Display Coagulation Panel: No Data to Display Cardiac Panel: Creatine Kinase 103 U/L (26-192) 03/06/22 Arterial Blood Gas: No Data to Display Venous Blood Gas: No Data to Display Pancreas Panel: No Data to Display Thyroid Panel: No Data to Display Infectious Disease: Coronavirus (COVID-19)(PCR) Negative (Negative) 04/01/22 09:35 Coronavirus 2019 Source Nasal/Nares 04/01/22 09:35 Blood Cultures: No Data to Display Toxicology Panel: No Data to Display Imaging and Studies Imaging and Studies Study information below may be from another EMR and interpreted by another provider. Please see original notes in EMR for more complete details. EKG Summary: 01/02/2021 Conclusion Sinus rhythm...normal P axis, V-rate 60- 99 Prolonged MA interval...MA >220, V-rate 50- 90 Left bundle branch block...QRSd>120, broad/notched R Stress Test Summary: 12/06/2019 Stress ECG Conclusion 1. Electrocardiographically nondiagnostic due to resting EKG abnormalities (LBBB) and an adequate heart rate achieved Echocardiogram Summary: 11/11/2019 Indications: CHF Conclusion Left Ventricle : The left ventricle is normal size. The left ventricular ejection fraction is within the normal range. Mild left ventricular hypertrophy. There is normal LV segmental wall motion but there is paradoxical septal motion. Diastolic function is indeterminate but there is evidence of elevated filling pressures. LVEF is estimated to be 55-60%. Right Ventricle : Right ventricle is mildly dilated. The right ventricular systolic function appears normal. Atria : Left atrium is mild to moderately dilated. Right atrium is mildly dilated. Aortic Valve : Aortic valve is thickened but has adequate excursion. There is no hemodynamically significant aortic stenosis. Trace aortic regurgitation. Mitral Valve : The mitral valve is mildly thickened. Moderate mitral regurgitation. No evidence of mitral valve stenosis. Great Vessels : The IVC is dilated, but collapses >50% with inspiration. Estimated RVSP is 33-41 mmHg. Compared to echocardiogram dated 09/29/2018: There is no significant change. Carotid Artery Summary:: 11/02/2018 IMPRESSION: Mild amount of plaque in the proximal right internal carotid artery. Mild velocity elevation corresponding to 50-60% stenosis. No significant left internal carotid artery stenosis. 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 Clinical steffen elation recommended. Anesthesia Assessment and Plan Anesthesia History Personal History: No History of Anesthesia Complications Family History: No Family History of Anesthesia Complications Exercise Tolerance Exercise Tolerance: Metabolic Equivalents<4 Cardiac & Pulmonary Exam Cardiac Exam: Normal S1/S2 Heart Sounds Pulmonary Exam: Clear Bilateral Breath Sounds Implantable Cardiac Device Does patient have a Pacemaker or an ICD?: No Airway Exam Known Difficult Airway: No Mallampati Class: 2 Mouth Opening: Normal (> 3cm) Thyromental Distance: Greater than 3 cm Neck Range of Motion: Full ROM Neck Circumference: Normal Teeth Condition: Normal Dentition, Removable Dentures/Plates Upper and Removable Dentures/Plates Lower ASA Classification ASA Score: ASA 3 Emergency Case?: No NPO Status NPO Status: NPO Clears >2 hours, Solids >8 hours Anesthesia Plan Resuscitation Status: Full Code Anesthesia Technique: General Anesthesia Airway Planned: LMA Monitors Used: Standard Monitors
[2022-04-03] MEDS: Lactated Ringers 1,000 ML 30 ML IV (13:31)
[2022-04-03] MEDS: ceFAZolin 2 GM/50 ML BAG IVPB (13:49)
[2022-04-03] MEDS: Bupivacaine 0.5% Pres-Free 30 ML VIAL (14:22)
--- NOTE | 2022-04-03 14:52 | ROE_ITS ---
Date of service: 04/03/22 Time of Service: 14:52 Operative Note Operative Note DATE OF PROCEDURE: 04/03/22 PRE-OP DIAGNOSIS: Arthrofibrosis of Left Knee Replacement, Patella Clunk - POST-OP DIAGNOSIS: same PROCEDURE: Arthroscopic Synovectomy of 3 Compartments with Manipulation - Left Knee SURGEON: Cordell Gipson ANESTHESIA TYPE: General LMA/ETT Refer to Anesthesia Record ESTIMATED BLOOD LOSS: 0 PATHOLOGY: none sent TOURNIQUET TIME: 0 COMPLICATIONS: None Patient was transported to: PACU Patient's condition: stable Indications: I have seen Chandni in clinic for symptoms of arthrofibrosis of the knee following knee replacement surgery. Nonoperative measures were exhausted but disability due to lack of motion persisted. I discussed knee arthroscopy with synovectomy with maniuplation with the patient. I reviewed the risks of the procedure to include, but not limited to, bleeding, infection, pain, continued stiffness, recurrence, blood clot. Despite these risks, the patient elected to proceed. Findings: There is noted synovitis seen around the patella. Additionally, within the notch there is a large spherical synovitis impinging against the post of the polyethylene. Procedure Description: Chandni was greeted in the preoperative holding area where the correct side was identified and marked. The consent was reviewed with the patient and signed. The history and physical was updated. All questions were answered. She was taken back to the operating room. The patient was placed into the supine position on the operating room table. All bony prominences were well padded. Prophylactic antibiotics in the form of Cefazolin were administered. The left leg was then prepped with Chloraprep and draped in a standard fashion with stockinette and extremity drape. A timeout to confirm correct identity, si de and site, procedure, allergies, anesthesia, and medical concerns was performed. The leg was placed into a pneumatic leg barry, [id number]. A standard lateral portal was made at the lateral border of the patella tendon in line with the inferior pole of the patella, soft spot. The skin and deep tissue was incised sharply and the blunt trochar was inserted atraumatically. At this point had visualization of the femoral component. A superolateral portal was then established with spinal needle localization just superior and lateral to the patella. A knife was taken down through the skin and soft tissue to enter the knee joint. There is notable synovitis seen around the patella with large pedunculated piece of tissue surrounding the patella, mostly lateral and distal. There is also some scarring of the suprapatellar pouch and notable loose scar tissue seen in the lateral compartment. Starting in the superior compartment above the femoral component and anterior to the femur I released all scarring between the anterior femoral synovium and the overlying extensor mechanism. This was taken through all of any noticeable scar tissue until the superior patellar pouch was fully released and mobile. This resection was carried out mostly with electrocautery as well as shaver. Once this was released fully from lateral to medial superiorly I then continue working down the lateral gutter. All scar tissue in the lateral gutter was released so there is normal space and movement between the capsular tissues and the edge of the femoral component and femur. This was taken down through the lateral gutter such that I was able to identify the polyethylene to its posterior corner. Once again, all scar tissue in this area was resected so the polyethylene was easily visible and there is no interposed tissue in the back or the polyethylene was identified. I continued to work anteriorly. To continue the synovectomy from the lateral compartment to the anterior compartment into the medial compartment, I placed a medial portal under spinal needle localization. Once this was in place it became another working portal and I continued the synovectomy through the anterior compartment to the medial compartment. The notch was inspected and there was a large spherical, pedunculated mass of tissue which was impinging on the notch itself. This was resected. Once again, I freed up the medial gutter so I was able to visualize the polyethylene from the anterior posterior margins. There is no interposed tissue after full synovectomy was performed. Adhesions between the capsule and the femur were released. This was continued up the medial gutter until it met up with the releases performed previously in the superior compartment. Any remnant scar tissue from around the patella was then removed with a shaver and electrocautery. The arthroscope was brought back into the suprapatellar pouch and the leg was in full extension. The knee was thoroughly irrigated with the arthroscopic fluid on high flow and pressure. Inflow was stopped and excess fluid was removed. The leg was removed from the spider leg barry and manipulation was performed. The wounds were closed with 4-0 Nylon. 0.25% ropivacaine was injected around the portal sites and into the knee. The wounds were dressed with Xeroform, 4x4 gauze, ABD pad, Kerlix and an NANDO wrap. A cryo-cuff was applied. The patient tolerated the procedure well and was returned to the Same Day Surgery area in a stable condition suffering no known complication..
--- NOTE | 2022-04-03 16:07 | W.ANESPOSTOP ---
Postoperative Evaluation Date, Time and Location Date Performed: 04/03/22 Time Performed: 16:07 Patient Location: Day Surgery Unit Vital Signs Most Recent Imported Vital Signs: Most Recent Vital Signs Temp Pulse Resp BP Pulse Ox 36.3 C L 61 17 143/68 H 93 04/03/22 15:30 04/03/22 15:30 04/03/22 15:30 04/03/22 15:30 04/03/22 15:30 Pain Score Most Recent Pain Score: Most Recent Pain Score Pain Level 0 04/03/22 15:30 Assessment Mental Status: Awake (Alert & Oriented to Patient Baseline) Airway and Respiratory Function: Patent airway with normal (patient baseline) respiratory exam Cardiovascular Function: Hemodynamically Stable Hydration Status: Adequately Hydrated Nausea & Vomiting: No Nausea or Vomiting Pain: Pain is tolerable per patient Peripheral Nerve Block: Patient did not receive a nerve block
== END 2022-04-03 16:29 | disposition home or self-care (01) ==
PROVIDERS: PCP Family Medicine; Visit Provider Student in an Organized Health Care Education/Training Program
PROC: (CPT 29870; principal; 2022-04-03 14:30)
DX: M24.662 Ankylosis, left knee (principal); Z96.652 Presence of left artificial knee joint; I50.32 Chronic diastolic (congestive) heart failure; Z66 Do not resuscitate; I48.0 Paroxysmal atrial fibrillation; I13.0 Hypertensive heart and chronic kidney disease with heart failure and stage 1 through stage 4 chronic kidney disease, or unspecified chronic kidney disease; N18.30 Chronic kidney disease, stage 3 unspecified
CPT/HCPCS: 29876; J0690; J2370; J3010

== ENCOUNTER → 2022-04-15 10:50 | Outpatient (BNVA) | payer MEDICARE, SELFPAY | PROVIDERS: PCP Family Medicine; Referring Provider Family Medicine; Visit Provider Physician Assistant | DX: Z47.1 Aftercare following joint replacement surgery (principal); Z96.652 Presence of left artificial knee joint; T84.82XA Fibrosis due to internal orthopedic prosthetic devices, implants and grafts, initial encounter ==

== ENCOUNTER 2022-04-25 20:58 | Outpatient (REF) | payer MEDICARE, SELFPAY ==
[2022-04-25 20:58] LABS: Abs Immature Grans 0.03 10^3/uL (0.0-0.06); Absolute Basophil Count 0.02 10^3/uL (0.0-0.2); Absolute Eosinophil Count 0.17 10^3/uL (0.0-0.7); Absolute Lymphocyte Count 1.38 10^3/uL (1.2-3.4); Absolute Monocyte Count 0.66 10^3/uL (0.1-0.8); Absolute Neutrophil Count 5.66 10^3/uL (1.2-6.7); Basophils % 0.3; Eosinophils % 2.1; HGB 11.7 g/dL (11.2-15.7); Immature Grans % 0.4; Lymphocytes % 17.4; MCH 31.8 pg (27.0-33.0); MCHC 32.5 % (32.0-36.0); MCV 98 fL (80-95); Monocytes % 8.3; Neutrophils % 71.5; Platelet Count 346 10^3/uL (130-400); RBC 3.68 10^6/uL (3.93-5.22); RDW 12.3 % (11.7-14.6); RDW-SD 44.2 fL; WBC 7.92 10^3/uL (4.4-10.8)
[2022-04-25 21:16] LABS: ALT 23 U/L (14-59); AST 23 U/L (15-37); Albumin 4.2 g/dL (3.4-5.0); Alkaline Phosphatase 117 U/L (46-116); Anion Gap 10.2 mmol/L (3-11); BUN 29 mg/dL (7-18); Bilirubin, Total 0.5 mg/dL (0.2-1.0); CO2 27.8 mmol/L (21.0-32.0); Calcium 9.4 mg/dL (8.5-10.1); Chloride 100 mmol/L (98-107); Estimated GFR 23.97 (mL/min/1.73m2); Glucose 128 mg/dL (74-106); Lipase 149 U/L (73-393); Sodium 138 mmol/L (136-145); Total Protein 7.3 g/dL (6.4-8.2)
== END 2022-04-25 20:59 | disposition home or self-care (01) ==
LOC: LBN 20:58
PROVIDERS: PCP Family Medicine; Visit Provider Physician Assistant Medical
DX: R10.9 Unspecified abdominal pain (principal); R11.2 Nausea with vomiting, unspecified
CPT/HCPCS: 80053; 83690; 85025

== ENCOUNTER → 2022-04-26 00:21 | Outpatient (CLI) | payer MEDICARE, SELFPAY ==
--- NOTE | 2022-04-26 | DI.US_ITS ---
Exam(s) US ABDOMEN LIMITED EXAM: US ABDOMEN LIMITED CLINICAL HISTORY: ABD PAIN, R10.9,NAUSEA, VOMITING, R11.2,BILAT UOQ,? BILIARY INVOLVEMENT TECHNIQUE: Ultrasound abdomen performed using standard protocol. COMPARISON: CT UPPER ABD WITHOUT CONTRAST from 08/14/[address] CHEST/ABD/PEL WO from 07/13/2021 FINDINGS: LIVER: Normal size and echogenicity. No focal liver lesions are seen.. GALLBLADDER: No evidence of cholelithiasis. No evidence of wall thickening. No pericholecystic fluid identified. WHITTAKER'S SIGN: Negative. BILIARY SYSTEM: No intrahepatic or extrahepatic biliary ductal dilation. RIGHT KIDNEY: Normal size. No evidence of renal calculi. No evidence of hydronephrosis. No suspicious renal mass. Cyst upper pole 1.4 cm. PANCREAS: Normal where visualized. ABDOMINAL AORTA AND IVC: Visualized portions normal caliber. ASCITES: None seen. PANCREAS: Normal where visualized. Partially obscured by bowel gas. IMPRESSION: No evidence gallbladder disease. No biliary dilatation or liver abnormality identified. DATA REPOSITORY:
== END ==
PROVIDERS: PCP Family Medicine; Visit Provider Physician Assistant Medical
DX: R10.84 Generalized abdominal pain (principal); R11.2 Nausea with vomiting, unspecified
CPT/HCPCS: 76705

== ENCOUNTER 2022-07-31 19:08 | Outpatient (REF) | payer MEDICARE, SELFPAY ==
[2022-07-31 14:53] LABS: Abs Immature Grans 0.02 10^3/uL (0.0-0.06); Absolute Basophil Count 0.03 10^3/uL (0.0-0.2); Absolute Eosinophil Count 0.15 10^3/uL (0.0-0.7); Absolute Lymphocyte Count 1.05 10^3/uL (1.2-3.4); Absolute Monocyte Count 0.67 10^3/uL (0.1-0.8); Absolute Neutrophil Count 4.48 10^3/uL (1.2-6.7); Basophils % 0.5; Eosinophils % 2.3; HCT 37.9 % (36.0-46.0); HGB 12.4 g/dL (11.2-15.7); Immature Grans % 0.3; Lymphocytes % 16.4; MCHC 32.7 % (32.0-36.0); MCV 98 fL (80-95); MPV 10.3 fL (8.0-11.0); Monocytes % 10.5; Platelet Count 297 10^3/uL (130-400); RBC 3.87 10^6/uL (3.93-5.22); RDW 12.3 % (11.7-14.6); RDW-SD 44.1 fL
[2022-07-31 15:05] LABS: ALT 25 U/L (14-59); AST 27 U/L (15-37); Alkaline Phosphatase 90 U/L (46-116); Anion Gap 9.8 mmol/L (3-11); BUN 25 mg/dL (7-18); Bilirubin, Total 0.5 mg/dL (0.2-1.0); CO2 30.2 mmol/L (21.0-32.0); CREATININE 2.5 mg/dL (0.55-1.02); Calcium 9.5 mg/dL (8.5-10.1); Calculated LDL 157 mg/dL (<100); Chloride 101 mmol/L (98-107); Cholesterol 250 mg/dL (<200); Estimated GFR 18.85 (mL/min/1.73m2); Glucose 107 mg/dL (74-106); HDL Cholesterol 61 mg/dL (40-60); Sodium 141 mmol/L (136-145); Total Protein 7.5 g/dL (6.4-8.2); Triglyceride 162 mg/dL (<150)
== END 2022-07-31 19:09 | disposition home or self-care (01) ==
LOC: NCHCN 19:08
PROVIDERS: PCP Family Medicine; Visit Provider Physician Assistant Medical
DX: E78.5 Hyperlipidemia, unspecified (principal); R11.2 Nausea with vomiting, unspecified
CPT/HCPCS: 80053; 80061; 85025

== ENCOUNTER 2022-08-08 13:30 | Emergency (ER) | payer MEDICARE, SELFPAY ==
[2022-08-08 13:35] VITALS: BP 183/72; PULSE 72; RESP 20; TEMP 36.6; O2SAT 98
--- NOTE | 2022-08-08 14:45 | ED.GENADUL_ITS ---
Discharge Plan Disposition Patient Disposition: STILL A PATIENT Condition: Stable Discharge Details Clinical Impression: Constipation Primary Care Provider: Lyubov Tee V ED Provider: Heber Rogers Home Meds and New Rx's Prescriptions: No Action hydroxychloroquine 200 mg tablet 200 mg PO DAILY famotidine 20 mg tablet 20 mg PO .COMPLEX Rx Instructions: 20 mg PO twice per week; tuesdays and . Eliquis 2.5 mg tablet 2.5 mg PO BID furosemide 40 mg tablet 40 mg PO BID losartan 25 mg tablet 25 mg PO DAILY buspirone 7.5 mg tablet 7.5 mg PO BID Savella 50 MG tablet 50 mg PO BID tramadol [Ultram] 50 mg tablet 50 mg PO HS PRN amiodarone [Pacerone] 200 mg Tablet 200 mg PO DAILY Qty: 0 0RF albuterol sulfate [ProAir HFA] 90 mcg/actuation Hfa Aerosol Inhaler 90 mcg INHALATION DAILY acetaminophen [Tylenol Extra Strength] 500 mg tablet 500 mg PO Q6H PRNQty: 90 0RF albuterol sulfate 2.5 mg /3 mL (0.083 %) Solution For Nebulization 2.5 mg inhalation Q4H PRN nitroglycerin 0.4 mg Tablet, Sublingual 0.4 mg SUBLINGUAL Q5-15M PRN polyethylene glycol 3350 [Miralax] 17 gram/dose Powder 17 g PO DAILY PRN melatonin 5 mg Tablet 5 mg PO HS metoprolol succinate 50 mg tablet extended release 24 hr 25 mg PO DAILY Qty: 0 0RF Medical Decision Making This is an 82-year-old female with a past medical history of A. fib, anticoagulated, CKD, depression, fibromyalgia, hypertension, presented to the ER reporting that she had flulike symptoms a couple weeks ago when she had diarrhea, this resolved and she has felt well for approximately 1 week. Last bowel movement was roughly 4 days ago, now reporting rectal pain. Patient reports that she typically takes a stool softener but has not been taking it because of her recent episode of diarrhea. Clinically she appears well, nontoxic. Abdomen is soft, nontender, normal bowel sounds. Plan to obtain routine screening laboratory values. Laboratory values reveal no evidence of leukocytosis. Urinalysis is nitrate positive with 20-50 white cells. She denies any dysuria. Given her benign abdominal examination, lack of elevated white count, less suspi cious for small bowel obstruction. Given her rectal examination, stool felt, certainly stool in the rectal vault. At this time we discussed options such as manual disimpaction versus therapeutics. Patient would prefer mag citrate a soapsuds enema and reassess. Medications have been ordered. Awaiting her CMP It was brought to my attention that there was a recall on mag citrate, will give Dulcolax instead. Medical Records Medical records reviewed: Yes I reviewed the patient's medical records. Lab Data Lab results reviewed: Yes I reviewed the patient's lab results. Labs: 08/08/22 14:37 Urine - Reflex from Ua Urine Culture - Pending Laboratory Tests Range/Units 08/08/22 08/08/22 08/08/22 14:37 14:37 14:37 WBC (4.4-10.8) 10^3/uL 9.71 RBC (3.93-5.22) 10^6/uL 3.87 L Hgb (11.2-15.7) g/dL 12.3 Hct (36.0-46.0) % 37.4 MCV (80-95) fL 97 H MCH (27.0-33.0) pg 31.8 MCHC (32.0-36.0) % 32.9 RDW (11.7-14.6) % 11.9 Plt Count (130-400) 10^3/uL 306 MPV (8.0-11.0) fL 10.0 Immature Gran % 0.2 Neutrophils % 80.7 Lymphocytes % 12.7 Monocytes % 5.9 Eosinophils % 0.3 Basophils % 0.2 Nucleated RBC % (0.0-0.3) % 0.0 Absolute Neutrophils (1.2-6.7) 10^3/uL 7.84 H Absolute Lymphocytes (1.2-3.4) 10^3/uL 1.23 Absolute Monocytes (0.1-0.8) 10^3/uL 0.57 Absolute Eosinophils (0.0-0.7) 10^3/uL 0.03 Absolute Basophils (0.0-0.2) 10^3/uL 0.02 PT (9.3-11.0) sec 10.0 INR (0.9-1.1) 1.0 APTT (21.0-27.5) sec 24.6 Sodium (136-145) mmol/L 143 Potassium (3.5-5.1) mmol/L 4.1 Chloride (98-107) mmol/L 103 Carbon Dioxide (21.0-32.0) mmol/L 29.7 Anion Gap (3-11) mmol/L 10.3 BUN (7-18) mg/dL 35 H Creatinine (0.55-1.02) mg/dL 2.1 H Est GFR (CKD-EPI 2020) (mL/min/1.73m2) 23.23 Glucose (74-106) mg/dL 119 H Calcium (8.5-10.1) mg/dL 9.5 Total Bilirubin (0.2-1.0) mg/dL 0.7 AST (15-37) U/L 25 ALT (14-59) U/L 23 Alkaline Phosphatase (46-116) U/L 92 Total Protein (6.4-8.2) g/dL 7.8 Albumin (3.4-5.0) g/dL 4.2 Lipase (73-393) U/L 236 Urine Color (Yellow) Urine Clarity (Clear) Urine pH (5-8) Ur Specific [place] (1.005-1.025) Urine Protein (Negative) mg/dL Urine Ketones (Negative) mg/dL Urine Blood (Negative) Urine Nitrite (Negative) Urine Bilirubin (Negative) Urine Urobilinogen (Up TO 0.2) EU/dL Ur Leukocyte Esterase (Negative) Urine RBC (0-2) HPF Urine WBC (0-5) HPF Ur Epithelial Cells (Negative) HPF Urine Crystals (Negative) HPF Urine Bacteria (Negative) HPF Urine Casts (Negative) LPF Urine Mucus (Negative) Urine Other (Negative) Ur Culture Indicated? Urine Glucose (Negative) mg/dL Range/Units 08/08/22 14:37 WBC (4.4-10.8) 10^3/uL RBC (3.93-5.22) 10^6/uL Hgb (11.2-15.7) g/dL Hct (36.0-46.0) % MCV (80-95) fL MCH (27.0-33.0) pg MCHC (32.0-36.0) % RDW (11.7-14.6) % Plt Count (130-400) 10^3/uL MPV (8.0-11.0) fL Immature Gran % Neutrophils % Lymphocytes % Monocytes % Eosinophils % Basophils % Nucleated RBC % (0.0-0.3) % Absolute Neutrophils (1.2-6.7) 10^3/uL Absolute Lymphocytes (1.2-3.4) 10^3/uL Absolute Monocytes (0.1-0.8) 10^3/uL Absolute Eosinophils (0.0-0.7) 10^3/uL Absolute Basophils (0.0-0.2) 10^3/uL PT (9.3-11.0) sec INR (0.9-1.1) APTT (21.0-27.5) sec Sodium (136-145) mmol/L Potassium (3.5-5.1) mmol/L Chloride (98-107) mmol/L Carbon Dioxide (21.0-32.0) mmol/L Anion Gap (3-11) mmol/L BUN (7-18) mg/dL Creatinine (0.55-1.02) mg/dL Est GFR (CKD-EPI 2020) (mL/min/1.73m2) Glucose (74-106) mg/dL Calcium (8.5-10.1) mg/dL Total Bilirubin (0.2-1.0) mg/dL AST (15-37) U/L ALT (14-59) U/L Alkaline Phosphatase (46-116) U/L Total Protein (6.4-8.2) g/dL Albumin (3.4-5.0) g/dL Lipase (73-393) U/L Urine Color (Yellow) Yellow Urine Clarity (Clear) Cloudy Urine pH (5-8) 7.0 Ur Specific [place] (1.005-1.025) 1.020 Urine Protein (Negative) mg/dL Negative Urine Ketones (Negative) mg/dL Negative Urine Blood (Negative) Trace-intact H Urine Nitrite (Negative) Positive H Urine Bilirubin (Negative) Negative Urine Urobilinogen (Up TO 0.2) EU/dL 0.2 Ur Leukocyte Esterase (Negative) Small H Urine RBC (0-2) HPF 3-5 H Urine WBC (0-5) HPF 20-50 H Ur Epithelial Cells (Negative) HPF Rare Urine Crystals (Negative) HPF Negative Urine Bacteria (Negative) HPF Many Urine Casts (Negative) LPF Negative Urine Mucus (Negative) Negative Urine Other (Negative) Few Renal Ur Culture Indicated? Yes Urine Glucose (Negative) mg/dL Negative HPI General Mode of arrival: EMS . Date/Time Provider Initiated Documentation: 08/08/22 13:36 . Limitations to Documentation: no limitations . Information obtained by: patient and EMS . History of Present Illness 82 year old F presents to the emergency department with the chief complaint of contipation, described as moderate, with intensity rated at 6. Quality is described as sharp, and is localized to the buttocks. Patient reports no radiation. Patient started experiencing this day(s) (4) and it has been constant. No relieving factors improve symptom(s), No exacerbating factors reported . Patient notes no other symptoms.. Patient did receive the following treatments prior to arrival, none Related Data Home Medications Medication Instructions Recorded Confirmed milnacipran 50 mg tablet (Savella) 50 mg PO BID 11/24/17 08/08/22 amiodarone 200 mg tablet (Pacerone) 200 mg PO DAILY #0 tabs 11/14/19 08/08/22 albuterol sulfate 90 mcg/actuation 90 mcg inhalation DAILY 02/13/20 08/08/22 aerosol inhaler (ProAir HFA) hydroxychloroquine 200 mg tablet 200 mg PO DAILY 05/31/21 08/08/22 famotidine 20 mg tablet 20 mg PO .COMPLEX 06/29/21 08/08/22 tramadol 50 mg tablet (Ultram) 50 mg PO HS PRN 06/29/21 08/08/22 acetaminophen 500 mg tablet 500 mg PO Q6H PRN #90 tabs 07/04/21 08/08/22 (Tylenol Extra Strength) albuterol sulfate 2.5 mg/3 mL 2.5 mg inhalation Q4H PRN 07/16/21 08/08/22 (0.083 %) solution for nebulization melatonin 5 mg tablet 5 mg PO HS 08/15/21 08/08/22 nitroglycerin 0.4 mg sublingual 0.4 mg sublingual Q5-15M PRN 08/15/21 08/08/22 tablet polyethylene glycol 3350 17 17 g PO DAILY PRN 08/15/21 08/08/22 gram/dose oral powder (Miralax) metoprolol succinate 50 mg 25 mg PO DAILY #0 tabs 08/17/21 08/08/22 tablet,extended release 24 hr apixaban 2.5 mg tablet (Eliquis) 2.5 mg PO BID 10/08/21 08/08/22 buspirone 7.5 mg tablet 7.5 mg PO BID 03/22/22 08/08/22 furosemide 40 mg tablet 40 mg PO BID 03/22/22 08/08/22 losartan 25 mg tablet 25 mg PO DAILY 03/22/22 08/08/22 Previous Rx's Medication Instructions Recorded amiodarone 200 mg tablet (Pacerone) 200 mg PO DAILY #0 tabs 11/14/19 acetaminophen 500 mg tablet 500 mg PO Q6H PRN #90 tabs 07/04/21 (Tylenol Extra Strength) metoprolol succinate 50 mg 25 mg PO DAILY #0 tabs 08/17/21 tablet,extended release 24 hr Allergies Allergy/AdvReac Type Severity Reaction Status Date / Time Sulfa (Sulfonamide AdvReac vomiting Verified 06/27/22 13:54 Antibiotics) cat scan dye AdvReac Hives Uncoded 06/27/22 13:54 General Stated Complaint: Abd Prob COURT: 3 Review of Systems Constitutional Constitutional: Denies fever(s) and Denies weakness Cardiovascular Cardiovascular: Denies chest pain and Denies dyspnea Respiratory Respiratory: Denies cough and Denies dyspnea Gastrointestinal Gastrointestinal: Reports abdominal pain, Denies melena, Denies hematochezia, Reports constipation, Denies diarrhea, Denies nausea and Denies vomiting Genitourinary Genitourinary: Denies dysuria Musculoskeletal Musculoskeletal: Denies back pain Integumentary/Breasts Skin/Breast: Denies rash Neurologic Neurologic: Denies weakness Hematologic/Lymphatic Hematologic/Lymphatic: Reports easy bleeding and Reports easy bruising PFSH All Active Problems (Updated 08/08/22 @ 15:27 by KANCHAN Hernandez) Constipation (Acute) Hammertoe of second toe of left foot (Acute) Shortness of breath (Acute) Paroxysmal atrial fibrillation (Chronic) Hyperlipidemia (Acute) DVT prophylaxis (Acute) Discharge planning issues (Acute) Acute on chronic diastolic CHF (congestive heart failure), NYHA class 1 (Acute) Elevated troponin (Acute) Chronic diastolic CHF (congestive heart failure) (Acute) Chronic respiratory failure with hypoxia (Chronic) Pulmonary hypertension (Acute) Normocytic anemia (Chronic) Fall (Acute) Ambulatory dysfunction (Chronic) POLST (Physician Orders for Life-Sustaining Treatment) (Acute) done 02/16/20 DNR (do not resuscitate) (Acute) DNI (do not intubate) (Acute) Goals of care, counseling/discussion (Acute) COVID-19 ruled out (Acute) Status post total left knee replacement (Acute ~1999) Status post total right knee replacement (Acute ~1997) UTI (urinary tract infection) (Acute) Hernia (Chronic) Cyst of left kidney (Acute) Painful total knee replacement, left (Acute) Sensorineural hearing loss, bilateral (Acute) Anemia (Chronic) SOB (shortness of breath) (Acute) Incisional hernia (Acute) History of arthroplasty of left knee (Acute) History of revision of total replacement of left knee joint (Acute 07/05/21) Draining postoperative wound (Acute) S/P I& Bradycardia (Acute) Bradycardia (Acute) Dizziness (Acute) Furuncle of groin (Acute) Synovitis (Acute) Arthrofibrosis of total knee arthroplasty (Acute) Medical History Atrial fibrillation CKD (chronic kidney disease), stage III Depression pt. denies this Diverticulosis of colon Fibromyalgia Gastroesophageal reflux History of tobacco use Hydronephrosis Hyperlipidemia Hypertension Intestinal adhesions NSTEMI (non-ST elevated myocardial infarction) pt. 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 Respiratory infection Systemic lupus erythematosus [place] [facility] [place] History of hysterectomy History of partial colectomy partial bowel resection-colectomy with colosotmy ad reversal, abdominal adhesions History of surgical removal of ganglion cyst both wrists History of tonsillectomy and adenoidectomy History of total right knee replacement (TKR) Hx of bilateral cataract extraction Hx of section Hx of knee surgery S/p bilateral carpal tunnel release Family History Father Heart disease Diabetes Mother Heart disease Hypertension Son Diabetes Granddaughter No problems noted. Granddaughter No problems noted. Daughter Hemochromatosis Social History Smoking/Tobacco Use Status: Former Tobacco Use Quit Date: 10/20/89 Smoking risk assessment performed?: Yes Alcohol Intake: current Alcohol Intake frequency: a few times a month Drug use: Never Substance use type: does not use Caregiver/Support person: No Household members: none Housing: house Communication Needs: Hard of Hearing and Corrective Lenses Education Level: high school Do you need help understanding health information?: Always How often do you talk on the phone with friends or family?: three or more times per week How often do you get together with friends or relatives?: three or more times per week Panel score (0-1 are the most socially isolated patients): 1 What type of physical activity do you participate in: walking and sedentary lifestyle Duration: < 15 minutes/day Special marci needs: No Seatbelt use: always Do you feel safe at home: Yes Additional Social history: lives alone-son and live next door and will be checking on patient post op Exam Const General: cooperative, healthy appearing, comfortable and no acute distress Orientation: alert, awake and oriented x3 HENMT Head: normal to inspection, normocephalic and atraumatic Face and sinus: normal facial exam Mouth: moist mucous membranes Eyes Conjunctivae: conjunctivae normal Neck Neck: normal visual inspection, full ROM, trachea midline and supple Resp Effort & Inspection: normal respiratory effort and able to speak in complete sentences Auscultation: clear to auscultation bilaterally Cardio Rate: regular rate Rhythm: abnormal rhythm irregularly irregular GI Inspection: normal to inspection and obesity Palpation: soft, not firm, no guarding, no pulsatile masses and nontender Auscultation: normal bowel sounds Rectal Exam - female: visual inspection normal, normal sphincter tone, heme positive stool Rectal exam heme positive - female: trace (Scant blood also noted) and other (Brown stool noted) Back/Spine/Pelvis Back: No back tenderness Skin General skin exam: no rashes or lesions noted Neuro General: patient alert, patient awake, moves all extremities and no focal motor deficits Sensory Exam: no sensory deficits noted Psych Appearance: grossly normal Mental Status: mental status grossly normal Course Vital Signs Vital signs: Vital Signs Temperature 36.6 C 08/08/22 13:35 Pulse 72 08/08/22 13:35 Respiratory Rate 20 08/08/22 13:35 Blood Pressure 183/72 H 08/08/22 13:35 Pulse Oximetry 98 08/08/22 13:35 Temperature 36.6 C 08/08/22 13:35 Temperature Source Temporal Artery Scan 08/08/22 13:35 Pulse 72 08/08/22 13:35 Respiratory Rate 20 08/08/22 13:35 Respiratory Effort Non-Labored 08/08/22 13:45 Blood Pressure 183/72 H 08/08/22 13:35 Blood Pressure Position Sitting 08/08/22 13:35 Pulse Oximetry 98 08/08/22 13:35 Oxygen Delivery Method Room Air 08/08/22 13:35 Oxygen Flow Rate 0 08/08/22 13:35 Pain Level 7 08/08/22 13:35
[2022-08-08 14:59] LABS: Abs Immature Grans 0.02 10^3/uL (0.0-0.06); Absolute Basophil Count 0.02 10^3/uL (0.0-0.2); Absolute Eosinophil Count 0.03 10^3/uL (0.0-0.7); Absolute Lymphocyte Count 1.23 10^3/uL (1.2-3.4); Absolute Monocyte Count 0.57 10^3/uL (0.1-0.8); Absolute Neutrophil Count 7.84 10^3/uL (1.2-6.7); Basophils % 0.2; Eosinophils % 0.3; HCT 37.4 % (36.0-46.0); HGB 12.3 g/dL (11.2-15.7); Immature Grans % 0.2; Lymphocytes % 12.7; MCH 31.8 pg (27.0-33.0); MCHC 32.9 % (32.0-36.0); MCV 97 fL (80-95); Monocytes % 5.9; Neutrophils % 80.7; Platelet Count 306 10^3/uL (130-400); RBC 3.87 10^6/uL (3.93-5.22); RDW 11.9 % (11.7-14.6); RDW-SD 42.4 fL; WBC 9.71 10^3/uL (4.4-10.8)
[2022-08-08 15:01] LABS: Bilirubin Negative (Negative); Blood Trace-intact (Negative); Clarity Cloudy (Clear); Glucose Negative (Negative); Ketones Negative (Negative); Leukocyte Esterase Small (Negative); Nitrite Positive (Negative); Urobilinogen 0.2 EU/dL (Up TO 0.2)
[2022-08-08 15:06] LABS: WBC 20-50 HPF (0-5)
[2022-08-08 15:07] LABS: Bacteria Many HPF (Negative); C & S Indicated? Yes; Casts Negative LPF (Negative); Crystals Negative HPF (Negative); Epithelial Cells Rare HPF (Negative); Mucus Negative (Negative); Other Cells Few Renal (Negative)
[2022-08-08 15:13] LABS: PTT Activated 24.6 sec (21.0-27.5)
[2022-08-08 15:21] LABS: ALT 23 U/L (14-59); AST 25 U/L (15-37); Albumin 4.2 g/dL (3.4-5.0); Alkaline Phosphatase 92 U/L (46-116); Anion Gap 10.3 mmol/L (3-11); BUN 35 mg/dL (7-18); Bilirubin, Total 0.7 mg/dL (0.2-1.0); CO2 29.7 mmol/L (21.0-32.0); CREATININE 2.1 mg/dL (0.55-1.02); Calcium 9.5 mg/dL (8.5-10.1); Chloride 103 mmol/L (98-107); Estimated GFR 23.23 (mL/min/1.73m2); Glucose 119 mg/dL (74-106); Lipase 236 U/L (73-393); Potassium 4.1 mmol/L (3.5-5.1); Sodium 143 mmol/L (136-145); Total Protein 7.8 g/dL (6.4-8.2)
[2022-08-08] MEDS: Bisacodyl 5 MG TABEC PO (15:36)
== END 2022-08-08 17:40 | disposition still patient (30) ==
PROVIDERS: Physician Assistant; Emergency Provider Physician Assistant; PCP Family Medicine
DX: K59.00 Constipation, unspecified (principal); I12.9 Hypertensive chronic kidney disease with stage 1 through stage 4 chronic kidney disease, or unspecified chronic kidney disease; N18.9 Chronic kidney disease, unspecified; R82.998 Other abnormal findings in urine
CPT/HCPCS: 36415; 80053; 83690; 87077; 99283; 81003; 81015; 85025; 85610; 85730; 87086; 87186; 99284

== ENCOUNTER 2022-08-27 11:20 | Outpatient (REF) | payer MEDICARE, SELFPAY | END 2022-08-27 11:21 | disposition home or self-care (01) | LOC: NCHCN 11:20 | PROVIDERS: PCP Family Medicine; Visit Provider Family Medicine | DX: N39.0 Urinary tract infection, site not specified (principal) | CPT/HCPCS: 87077; 87086; 87186 ==

== ENCOUNTER 2022-11-15 01:20 | Outpatient (CLI) | payer MEDICARE, SELFPAY ==
[2022-11-15 13:03] LABS: HCT 37.5 % (36.0-46.0); MCH 31.5 pg (27.0-33.0); MCV 98 fL (80-95); MPV 9.4 fL (8.0-11.0); Platelet Count 284 10^3/uL (130-400); RBC 3.81 10^6/uL (3.93-5.22); RDW 11.7 % (11.7-14.6); RDW-SD 42.4 fL; WBC 6.18 10^3/uL (4.4-10.8)
[2022-11-15 14:04] LABS: ALT 20 U/L (14-59); AST 25 U/L (15-37); Albumin 4.1 g/dL (3.4-5.0); Alkaline Phosphatase 92 U/L (46-116); Anion Gap 7.8 mmol/L (3-11); BUN 28 mg/dL (7-18); Bilirubin, Total 0.6 mg/dL (0.2-1.0); CO2 30.2 mmol/L (21.0-32.0); CREATININE 2.2 mg/dL (0.55-1.02); Calcium 9.6 mg/dL (8.5-10.1); Chloride 103 mmol/L (98-107); Estimated GFR 21.97 (mL/min/1.73m2); Glucose 120 mg/dL (74-106); Magnesium 2.2 mg/dL (1.8-2.4); Potassium 4.2 mmol/L (3.5-5.1); Sodium 141 mmol/L (136-145); Total Protein 7.5 g/dL (6.4-8.2)
== END 2022-11-15 01:21 | disposition home or self-care (01) ==
LOC: LBO 01:20
PROVIDERS: PCP Family Medicine; Visit Provider Family Medicine
DX: D64.9 Anemia, unspecified (principal); I10 Essential (primary) hypertension; F32.89 Other specified depressive episodes; K21.9 Gastro-esophageal reflux disease without esophagitis; L29.8 Other pruritus; I48.91 Unspecified atrial fibrillation; Z79.01 Long term (current) use of anticoagulants
CPT/HCPCS: 36415; 80053; 85027; 83735

== ENCOUNTER 2023-02-18 02:03 | Outpatient (CLI) | payer MEDICARE, SELFPAY ==
--- NOTE | 2023-02-18 11:00 | DI.RAD_ITS ---
Exam(s) XR LUMBAR SPINE COMPLETE EXAM: XR LUMBAR SPINE COMPLETE CLINICAL HISTORY: LBP, M54.50. TECHNIQUE: 2D digital imaging was performed. COMPARISON: No exams were available for comparison FINDINGS: Five views: No evidence of acute fracture or listhesis. There is advanced multilevel disc space narrowing and va cuum phenomenon at L3-4, L4-5, and L5-S1 levels. Also T12-L1. Modic type sub endplate marrow edema changes at these levels. Mild scoliosis. No osseous lesions. Multilevel facet arthropathy. Sacroi liac joints unremarkable. No osseous lesions. Facet arthropathy noted. IMPRESSION: Advanced multilevel degenerative changes and degenerative disc disease. If clinically indicated follow-up MRI can be performed. DATA REPOSITORY: RADIATION DOSE DELIVERED:
== END 2023-02-18 02:23 ==
LOC: DI 02:09
PROVIDERS: PCP Family Medicine; Visit Provider Family Medicine
DX: M54.50 Low back pain, unspecified (principal); Z96.652 Presence of left artificial knee joint
CPT/HCPCS: 72110

== ENCOUNTER 2023-03-19 04:32 | Outpatient (CLI) | payer MEDICARE, SELFPAY ==
[2023-03-19 12:58] LABS: HCT 36.3 % (36.0-46.0); HGB 11.8 g/dL (11.2-15.7); MCH 31.4 pg (27.0-33.0); MCHC 32.5 % (32.0-36.0); MCV 97 fL (80-95); MPV 9.6 fL (8.0-11.0); Platelet Count 284 10^3/uL (130-400); RBC 3.76 10^6/uL (3.93-5.22); RDW-SD 42.8 fL; WBC 6.27 10^3/uL (4.4-10.8)
[2023-03-19 13:08] LABS: Hemoglobin A1C 5.5 % (<5.7)
[2023-03-19 13:31] LABS: ALT 17 U/L (14-59); AST 17 U/L (15-37); Albumin 3.8 g/dL (3.4-5.0); Alkaline Phosphatase 97 U/L (46-116); Anion Gap 8.7 mmol/L (3-11); BUN 44 mg/dL (7-18); Bilirubin, Total 0.5 mg/dL (0.2-1.0); CO2 28.3 mmol/L (21.0-32.0); CREATININE 2.8 mg/dL (0.55-1.02); Chloride 105 mmol/L (98-107); Estimated GFR 16.45 (mL/min/1.73m2); Glucose 140 mg/dL (74-106); Magnesium 2.1 mg/dL (1.8-2.4); Potassium 4.4 mmol/L (3.5-5.1); Sodium 142 mmol/L (136-145); TSH (W/Ref FT4) 1.21 uIU/mL (0.36-3.74); Total Protein 7.4 g/dL (6.4-8.2)
== END 2023-03-19 04:33 | disposition home or self-care (01) ==
LOC: LBO 04:32
PROVIDERS: PCP Family Medicine; Visit Provider Family Medicine
DX: R11.2 Nausea with vomiting, unspecified (principal)
CPT/HCPCS: 36415; 80053; 85027; 83036; 83735; 84443

== ENCOUNTER 2023-03-27 15:13 | Outpatient (REF) | payer MEDICARE, SELFPAY ==
[2023-03-27 18:38] LABS: ESR 28 mm/hr (0-30)
[2023-03-27 18:51] LABS: ALT 21 U/L (14-59); AST 30 U/L (15-37); Albumin 3.7 g/dL (3.4-5.0); Alkaline Phosphatase 96 U/L (46-116); Anion Gap 11.1 mmol/L (3-11); BUN 30 mg/dL (7-18); Bilirubin, Total 0.5 mg/dL (0.2-1.0); C-Reactive Protein 3.87 mg/dL (0.0-0.3); CO2 24.9 mmol/L (21.0-32.0); CREATININE 1.8 mg/dL (0.55-1.02); Calcium 9.1 mg/dL (8.5-10.1); Chloride 105 mmol/L (98-107); Estimated GFR 27.96 (mL/min/1.73m2); Glucose 112 mg/dL (74-106); Lipase 63 U/L (16-77); Potassium 4.1 mmol/L (3.5-5.1); Sodium 141 mmol/L (136-145); Total Protein 6.9 g/dL (6.4-8.2)
== END 2023-03-27 15:14 | disposition home or self-care (01) ==
LOC: NCHCN 15:13
PROVIDERS: PCP Family Medicine; Visit Provider Family Medicine
DX: R11.2 Nausea with vomiting, unspecified (principal); R10.9 Unspecified abdominal pain; M32.9 Systemic lupus erythematosus, unspecified
CPT/HCPCS: 80053; 83690; 85652; 86140

== ENCOUNTER → 2023-04-01 13:49 | Outpatient (BNVA) | payer MEDICARE, SELFPAY | PROVIDERS: PCP Family Medicine; Referring Provider Family Medicine; Visit Provider Surgery | DX: K82.8 Other specified diseases of gallbladder (principal); K43.2 Incisional hernia without obstruction or gangrene; I48.91 Unspecified atrial fibrillation; Z79.01 Long term (current) use of anticoagulants; I50.32 Chronic diastolic (congestive) heart failure; J96.11 Chronic respiratory failure with hypoxia; Z99.89 Dependence on other enabling machines and devices | CPT/HCPCS: 99212; 99214 ==

== ENCOUNTER 2023-06-10 12:44 | Outpatient (REF) | payer MEDICARE, SELFPAY ==
[2023-06-10 14:59] LABS: HCT 34.9 % (36.0-46.0); HGB 11.4 g/dL (11.2-15.7); MCH 31.6 pg (27.0-33.0); MCHC 32.7 % (32.0-36.0); MCV 97 fL (80-95); MPV 10.2 fL (8.0-11.0); Platelet Count 300 10^3/uL (130-400); RBC 3.61 10^6/uL (3.93-5.22); RDW 12.1 % (11.7-14.6); RDW-SD 43.1 fL
[2023-06-10 15:24] LABS: ALT 19 U/L (14-59); AST 24 U/L (15-37); Albumin 3.8 g/dL (3.4-5.0); Alkaline Phosphatase 96 U/L (46-116); Anion Gap 8.5 mmol/L (3-11); BUN 37 mg/dL (7-18); Bilirubin, Total 0.5 mg/dL (0.2-1.0); CO2 28.5 mmol/L (21.0-32.0); CREATININE 2.4 mg/dL (0.55-1.02); Calcium 9.2 mg/dL (8.5-10.1); Chloride 103 mmol/L (98-107); Estimated GFR 19.79 (mL/min/1.73m2); Glucose 112 mg/dL (74-106); Potassium 4.3 mmol/L (3.5-5.1); Sodium 140 mmol/L (136-145)
== END 2023-06-10 12:45 | disposition home or self-care (01) ==
LOC: NCHCN 12:44
PROVIDERS: PCP Family Medicine; Visit Provider Family Medicine
DX: R11.2 Nausea with vomiting, unspecified (principal); N18.9 Chronic kidney disease, unspecified; I48.91 Unspecified atrial fibrillation; Z79.01 Long term (current) use of anticoagulants; K43.9 Ventral hernia without obstruction or gangrene
CPT/HCPCS: 80053; 85027

== ENCOUNTER 2023-06-13 07:44 | Outpatient (CLI) | payer MEDICARE, SELFPAY ==
--- NOTE | 2023-06-13 07:30 | RT.EKG_ITS ---
APPROVED REPORT Exam: Resting ECG Reason for Exam: atrial fib, bradycardia Patient Location: O HR:60 bpm ECG Measurements Heart Rate 60 AXIS NY 253 P 0 QRSd 124 QRS -26 QT 476 T 59 QTc 476 Conclusion Sinus rhythm...normal P axis, V-rate 50- 99 Prolonged NY interval...NY >220, V-rate 50- 90 Left bundle branch block...QRSd>120, broad/notched R Baseline wander in lead(s) V1,V2
== END 2023-06-13 07:45 | disposition home or self-care (01) ==
LOC: DI.CARD 07:45
PROVIDERS: PCP Family Medicine; Visit Provider Internal Medicine Cardiovascular Disease
DX: I48.0 Paroxysmal atrial fibrillation (principal); R00.1 Bradycardia, unspecified
CPT/HCPCS: 93010

== ENCOUNTER → 2023-06-13 13:53 | Outpatient (BNVA) | payer MEDICARE, SELFPAY | PROVIDERS: PCP Family Medicine; Referring Provider Family Medicine; Visit Provider Internal Medicine Cardiovascular Disease | DX: I50.32 Chronic diastolic (congestive) heart failure (principal); I48.0 Paroxysmal atrial fibrillation | CPT/HCPCS: 93005; 99203; 99214 ==

== ENCOUNTER → 2023-10-22 01:55 | Outpatient (CLI) | payer MEDICARE, SELFPAY ==
--- NOTE | 2023-10-22 13:00 | DI.RAD_ITS ---
Exam(s) XR FOOT RT COMPLETE EXAM: XR FOOT RT COMPLETE CLINICAL HISTORY: pain to right foot m79.674 pain rt toe m20.41 hammer toe rt foot. TECHNIQUE: 2D digital imaging was performed. Three views. COMPARISON: CR XR FOOT LT COMPLETE from 10/22/2023 FINDINGS: BONES: No acute fracture is present. No bony destructive lesion is seen. Prominent heel spurs. Ossi priscila dorsal to the talus. JOINTS: No dislocation present. Degenerative changes intertarsal and tarsal metatarsal regions. Ham mertoe deformity of the 2nd toe. SOFT TISSUE: Normal. IMPRESSION: Hammertoe deformity of 2nd toe. Prominent heel spurs. DATA REPOSITORY: RADIATION DOSE DELIVERED:
--- NOTE | 2023-10-22 13:00 | DI.RAD_ITS ---
Exam(s) XR FOOT LT COMPLETE EXAM: XR FOOT LT COMPLETE CLINICAL HISTORY: Painful left hammer toe, lt foot pain, M79.672, M20.42. TECHNIQUE: 2D digital imaging was performed. Three views. COMPARISON: No exams were available for comparison FINDINGS: BONES: No acute fracture is present. No bony destructive lesion is seen. Prominent heel spurs. Lesley or amputation of the 2nd toe. JOINTS: No dislocation present. Moderate hallux valgus. Degenerative changes greatest at tarsal meta tarsal joints. SOFT TISSUE: Normal. IMPRESSION: Hallux valgus and prominent heel spurs. DATA REPOSITORY: RADIATION DOSE DELIVERED:
== END ==
PROVIDERS: PCP Family Medicine; Visit Provider Podiatrist
DX: M20.41 Other hammer toe(s) (acquired), right foot (principal); M79.674 Pain in right toe(s); M20.42 Other hammer toe(s) (acquired), left foot; M79.672 Pain in left foot
CPT/HCPCS: 73630

== ENCOUNTER 2023-11-05 09:11 | Observation (INO) | payer MEDICARE, SELFPAY ==
[2023-11-05] VITALS (57 sets, daily range): BP systolic 121–194; BP diastolic 69–96; PULSE 60–100; RESP 8–26; TEMP 36.3–37.6; O2SAT 77–100
--- NOTE | 2023-11-05 09:45 | RT.EKG_ITS ---
APPROVED REPORT Exam: Resting ECG Reason for Exam: weakness Patient Location: E HR:75 bpm ECG Measurements Heart Rate 75 AXIS NM [id number] P [id number] QRSd 120 QRS -26 QT 437 T 49 QTc 490 Conclusion Atrial fibrillation...? atrial activity Incomplete left bundle branch block...QRSd>110mS, terminal axis(-90,-1)
--- NOTE | 2023-11-05 09:45 | DI.CT_ITS ---
Exam(s) CT HEAD WO EXAM: CT HEAD WO CLINICAL HISTORY: headache new onset. TECHNIQUE: Imaging Protocol: Axial computed tomography images with coronal and sagittal reformatted images were created and reviewed COMPARISON: CT CT HEAD WO from 01/02/2021 FINDINGS: There are no skull fractures. There is no fluid in the visualized paranasal sinuses. There is no evidence of intracranial hemorrhage, mass effect, or shift of midline structures. There are no extra-axial fluid collections. The ventricles are not enlarged or shifted and there is no blo od within the ventricular system nor within the basal cisterns. There is mild bilateral periventricular hypodensity consistent with chronic small vessel disease. Al so some asymmetric hypodensity is again noted in the lateral aspect of the left cerebellar hemisphere , unchanged from CT scan of December 2020 possibly related to prior ischemic event at that level. IMPRESSION: No acute intracranial findings on this noninfused CT scan of the brain. 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 RADIATION DOSE DELIVERED: 753.32mGy.cm Total DLP DATA REPOSITORY: All CT scans at this facility are submitted to the National Radiology Data Registry (NRDR) Dose Index Registry (DIR) with the [employer] (ACR). RADIATION OPTIMIZATION: All CT scans at this facility use at least one of these dose optimization te chniques: automated exposure control; mA and/or kV adjustment per patient size (includes targeted exa ms where dose is matched to clinical indication); or iterative reconstruction.
--- NOTE | 2023-11-05 09:45 | DI.RAD_ITS ---
Exam(s) XR CHEST 2V PA LATERAL EXAM: XR CHEST 2V PA LATERAL CLINICAL HISTORY: weakness. TECHNIQUE: 2D digital imaging was performed. COMPARISON: CT CT CHEST/ABD/PEL WO from 07/13/2021 CR,XR XR CHEST 2V PA LATERAL from 07/16/2021 CR XR PORTABLE CHEST AP from 08/15/[address] ABDOMEN PELVIS WO from 11/05/2023 FINDINGS: 2 views: Heart size is upper normal. The mediastinum is not widened. No significant lung findings on the PA view. However, on the lateral view there are 2 densities proj ected over the heart shadow which may be subtle infiltrates either in the right middle lobe, lingular segment of the left lung, or both. Other possibility would be for pericardiac fat pad extensions wh ich are seen on today's abdominal CT scan upper images. However, these were not evident on the later al chest x-ray of 07/17/2021. The chest x-ray of 08/15/2021 was a single frontal portable view. There are no pleural effusions. No pulmonary edema. IMPRESSION: Findings on the lateral view as described above, possibly significant with respect to infiltrates whi ch are not evident on the frontal view. However, the uppermost images of today's abdominal CT scan d o not reveal infiltrates at this location but instead revealed benign bilateral pericardiac fat pad e xtensions which may explain this finding. DATA REPOSITORY: RADIATION DOSE DELIVERED:
--- NOTE | 2023-11-05 09:57 | DI.CT_ITS ---
Exam(s) CT ABDOMEN PELVIS WO EXAM: CT ABDOMEN PELVIS WO CLINICAL HISTORY: abd pain, vomiting, fever. TECHNIQUE: Imaging Protocol: Axial computed tomography images with coronal and sagittal reformatted images were created and reviewed CONTRAST MATERIAL: Intravenous: none Oral: None COMPARISON: CT CT CHEST/ABD/PEL WO from 07/13/2021 FINDINGS: VISUALIZED LUNG BASES: No nodules nor pleural effusions evident. ABDOMEN: There is no ascites. LIVER: There are no obvious focal hepatic lesions evident of this noninfused study. GALLBLADDER/BILIARY: No obvious gallbladder pathology. CBD is not dilated. PANCREAS: There is mild streaking around the pancreatic head, possibly indicating pancreatitis. Ther e is no obvious pancreatic head mass. Pancreatic duct is not dilated no streaking seen in the fat carrillo rrounding the pancreatic body and tail. SPLEEN: Spleen is not enlarged. No obvious intrasplenic lesions. ADRENALS: There are no new significant adrenal masses. KIDNEYS:Previously described finding in the posterior aspect of the upper pole the left kidney as inc reased in size, presently measuring 1.5 by 1.5 cm. This presently has appearance of a benign simple cyst, exhibiting fluid internal density. There is a small density on the dependent wall of this cyst which may be mild remnant hemorrhage or calcification in the wall.. In the opposite-right kidney th ere is a cortical cyst noted posteriorly in the uppermost kidney, measuring 1.8 x 1.8 cm and probably a cyst. There is also a single nonocclusive calculus in the right kidney which measures 3 mm. ABDOMINAL AORTA: Calcified but not enlarged. Iliac arteries also calcified but not enlarged. LYMPH NODES: There is no retroperitoneal nor paraaortic adenopathy. ABDOMINAL WALL: The previously present right of center Isabell umbilical level hernia has been fixed PE there is no evidence of significant anterior abdominal hernia at this to. Also no evidence of signif icant inguinal hernia. GI: Again noted is evidence of right-sided small bowel loops surgery. Anastomosis appears unremarkab le.. There is also again noted evidence of partial low sigmoid resection, also without significant a bnormality at this level nor dilatation above this level. There is no evidence of bowel obstruction, free air, nor abscess. PELVIS: LYMPH NODES: There is no intrapelvic nor inguinal adenopathy. GI: No evidence of appendicitis.No evidence of sigmoid diverticulitis. URINARY BLADDER: No calculi nor obvious masses evident REPRODUCTIVE: Uterus is surgically absent. There are no abnormal adnexal masses. No free fluid OSSEOUS: No significant osseous lesions. No osseous lesions. The degenerative disc disease in the l umbar spine noted, most prominent at L3-4 level. IMPRESSION: 1. Compared to CT scan of 07/13/2021 there is again noted evidence of partial small bowel obstruction right side and partial low sigmoid resection. Also evidence of previous hysterectomy. There is no evidence of bowel obstruction, free air, nor abscess in the abdomen and pelvis. 2. No evidence of anterior abdominal wall hernia at this time. This has undergone repair since last study listed above. 3. Nonobstructive 3 millimeter calculus in the right kidney noted. 4. Very mild streaking around the pancreatic head possibly indicating inflammation such as pancreati tis. No distinct fluid collection. No mass. No dilatation of the pancreatic duct. Other findings as above. Discussed by phone with ER provider. RADIATION DOSE DELIVERED: 985.3mGy.cm Total DLP DATA REPOSITORY: All CT scans at this facility are submitted to the National Radiology Data Registry (NRDR) Dose Index Registry (DIR) with the [employer] (ACR). RADIATION OPTIMIZATION: All CT scans at this facility use at least one of these dose optimization te chniques: automated exposure control; mA and/or kV adjustment per patient size (includes targeted exa ms where dose is matched to clinical indication); or iterative reconstruction.
[2023-11-05] MEDS: Prochlorperazine 10 MG/2 ML VIAL 5 MG IVP (10:25)
[2023-11-05] MEDS: ACETAMINOPHEN 1,000 MG/100 ML BTL 400 MG IVPB (10:26)
[2023-11-05] MEDS: Lactated Ringers 1,000 ML 1000 ML IV (10:27)
[2023-11-05 10:46] LABS: Abs Immature Grans 0.03 10^3/uL (0.0-0.06); Absolute Basophil Count 0.01 10^3/uL (0.0-0.2); Absolute Eosinophil Count 0.11 10^3/uL (0.0-0.7); Absolute Monocyte Count 1.01 10^3/uL (0.1-0.8); Basophils % 0.1; HCT 36.3 % (36.0-46.0); HGB 12.2 g/dL (11.2-15.7); Immature Grans % 0.3; Lymphocytes % 9.8; MCH 31.4 pg (27.0-33.0); MCHC 33.6 % (32.0-36.0); MCV 93 fL (80-95); MPV 9.8 fL (8.0-11.0); Monocytes % 8.8; Platelet Count 272 10^3/uL (130-400); RBC 3.89 10^6/uL (3.93-5.22); RDW 12.4 % (11.7-14.6); RDW-SD 42.4 fL; WBC 11.48 10^3/uL (4.4-10.8)
[2023-11-05 10:47] LABS: Absolute Lymphocyte Count 1.13 10^3/uL (1.2-3.4); Absolute Neutrophil Count 9.18 10^3/uL (1.2-6.7)
--- NOTE | 2023-11-05 10:49 | W.ED.GENAD ---
HPI General Date/Time Provider Initiated Documentation: 11/05/23 09:29. HPI Narrative: This 83-year-old female presents with nausea, high blood pressure, headache. Denies any chest pain or new shortness of breath. She states she has felt unwell since around [place] time. She states he was diagnosed with flu and pneumonia at that time. She states her headaches have been gradually worsening. Denies any chest pain or significant shortness of breath. Has discontinued antibiotics for several weeks. Denies any diarrhea or fever. Related Data Home Medications Medication Instructions Recorded Confirmed amiodarone 200 mg tablet (Pacerone) 200 mg PO DAILY #0 tabs 11/14/19 11/05/23 acetaminophen 500 mg tablet 500 mg PO Q6H PRN #90 tabs 07/04/21 11/05/23 (Tylenol Extra Strength) albuterol sulfate 2.5 mg/3 mL 2.5 mg inhalation Q4H PRN 07/16/21 11/05/23 (0.083 %) solution for nebulization nitroglycerin 0.4 mg sublingual 0.4 mg sublingual Q5-15M PRN 08/15/21 11/05/23 tablet metoprolol succinate 50 mg 25 mg (1/2 x 50 mg) PO DAILY #0 08/17/21 11/05/23 tablet,extended release 24 hr tabs apixaban 2.5 mg tablet (Eliquis) 2.5 mg PO BID 10/08/21 11/05/23 docusate calcium 240 mg capsule 240 mg PO BID 03/31/23 11/05/23 furosemide 40 mg tablet (Lasix) 40 mg PO BID 03/31/23 11/05/23 losartan 50 mg tablet 25 mg PO DAILY 03/31/23 11/05/23 milnacipran 50 mg tablet (Savella) 50 mg PO BID 03/31/23 11/05/23 famotidine 20 mg tablet 20 mg PO .COMPLEX 04/01/23 11/05/23 tramadol 50 mg tablet (Ultram) 50 mg PO BID PRN 06/09/23 11/05/23 calcitriol 0.25 mcg capsule 0.25 mcg PO Q OTHER DAY 06/13/23 11/05/23 marce root extract 15 mg chewable 15 mg PO .PO 10/22/23 11/05/23 tablet polyethylene glycol 3350 17 17 g PO DAILY PRN 10/22/23 11/05/23 gram/dose oral powder (Miralax) Oxygen 11/05/23 11/05/23 fluticasone furoate 100 1 inh inhalation DAILY 11/05/23 11/05/23 mcg/actuation blister powder for inhalation (Arnuity Ellipta) hydroxychloroquine 200 mg tablet 200 mg PO DAILY 11/05/23 11/05/23 melatonin 10 mg capsule 10 mg PO QHS 11/05/23 11/05/23 Previous Rx's Medication Instructions Recorded amiodarone 200 mg tablet (Pacerone) 200 mg PO DAILY #0 tabs 11/14/19 acetaminophen 500 mg tablet 500 mg PO Q6H PRN #90 tabs 07/04/21 (Tylenol Extra Strength) metoprolol succinate 50 mg 25 mg (1/2 x 50 mg) PO DAILY #0 08/17/21 tablet,extended release 24 hr tabs Allergies Allergy/AdvReac Type Severity Reaction Status Date / Time atorvastatin Allergy Severe Verified 11/05/23 09:28 Iodinated Contrast Media Allergy Severe Hives Verified 11/05/23 09:28 doxycycline Allergy Intermediate vomiting Verified 11/05/23 09:28 pantoprazole Allergy Intermediate abd pain, Verified 11/05/23 09:28 nausea, vomiting Sulfa (Sulfonamide AdvReac vomiting Verified 11/05/23 09:28 Antibiotics) General Stated Complaint: GenMedical COURT: 3 PFSH All Active Problems (Updated 11/05/23 @ 14:49 by KANCHAN Mancini) Acute pancreatitis (Acute) Pre-syncope (Acute) Pancreatitis (Chronic) Elevated troponin (Acute) Peripheral vascular disease, unspecified (Chronic) Toe pain, right (Acute) Hammer toe of right foot (Acute) Pain of right great toe (Acute) Chronic kidney disease (CKD) stage G4/A3, severely decreased glomerular filtration rate (GFR) between 15-29 mL/min/1.73 square meter and albuminuria creatinine ratio greater than 300 mg/g (Acute) eGFR 19 in 05/2023. Monitoring for long-term anticoagulant use (Acute) Restless legs (Acute) Edema (Acute) Basal cell carcinoma of skin (Acute) Idiopathic peripheral neuropathy (Acute) Hyperuricemia without signs inflammatory arthritis/tophaceous disease (Acute) Adjustment disorder (Chronic) Acquired cystic kidney disease (Acute) Systemic lupus erythematosus (Chronic) F/U with / Ram[place] [facility] [facility] [place] Hypertension (Chronic) Hyperlipidemia (Acute) Gastroesophageal reflux (Chronic) Fibromyalgia (Acute) CKD (chronic kidney disease), stage III (Acute) Atrial fibrillation (Chronic) Impairment of speech discrimination (Acute) GLADYS (obstructive sleep apnea) (Chronic) Biliary dyskinesia (Acute) COPD (chronic obstructive pulmonary disease) (Chronic) Abnormal biliary HIDA scan (Acute) Hammertoe of second toe of left foot (Acute) Paroxysmal atrial fibrillation (Chronic) Hyperlipidemia (Acute) Acute on chronic diastolic CHF (congestive heart failure), NYHA class 1 (Acute) Chronic diastolic CHF (congestive heart failure) (Acute) Chronic respiratory failure with hypoxia (Chronic) Pulmonary hypertension (Acute) Normocytic anemia (Chronic) Ambulatory dysfunction (Chronic) POLST (Physician Orders for Life-Sustaining Treatment) (Acute) done 02/16/20 DNR (do not resuscitate) (Acute) DNI (do not intubate) (Acute) Cyst of left kidney (Acute) Sensorineural hearing loss, bilateral (Acute) History of revision of total replacement of left knee joint (Acute 07/05/21) Bradycardia (Acute) Arthrofibrosis of total knee arthroplasty (Acute) Medical History (Updated 11/05/23 @ 14:49 by KANCHAN Mancini) Palliative care patient Brachial plexus disorders Low back pain Anemia Gallbladder Problem Nausea & vomiting Synovitis Furuncle of groin Dizziness Incisional hernia SOB (shortness of breath) Painful total knee replacement, left Hernia UTI (urinary tract infection) COVID-19 ruled out Goals of care, counseling/discussion Fall Discharge planning issues DVT prophylaxis NSTEMI (non-ST elevated myocardial infarction) pt. denies this Respiratory infection Hydronephrosis History of tobacco use Diverticulosis of colon Depression pt. denies this Intestinal adhesions Surgical History Draining postoperative wound S/P I& History of arthroplasty of left knee Status post total right knee replacement (~1997) Status post total left knee replacement (~1999) History of total right knee replacement (TKR) Hx of bilateral cataract extraction Hx of knee surgery History of partial colectomy partial bowel resection-colectomy with colosotmy ad reversal, abdominal adhesions S/p bilateral carpal tunnel release History of surgical removal of ganglion cyst both wrists History of hysterectomy Hx of section History of tonsillectomy and adenoidectomy Family History Father Heart disease Diabetes Mother Heart disease Hypertension Son Diabetes Granddaughter No problems noted. Granddaughter No problems noted. Daughter Hemochromatosis Social History Smoking/Tobacco Use Status: Former Tobacco Use Quit Date: 10/20/89 Smoking risk assessment performed?: Yes Alcohol Intake: current Alcohol Intake frequency: a few times a month Drug use: Never Substance use type: does not use Caregiver/Support person: No Household members: none Housing: house Communication Needs: Hard of Hearing and Corrective Lenses Education Level: high school Do you need help understanding health information?: Always Current gender identity: female How often do you talk on the phone with friends or family?: three or more times per week How often do you get together with friends or relatives?: three or more times per week Panel score (0-1 are the most socially isolated patients): 1 What type of physical activity do you participate in: walking and sedentary lifestyle Duration: < 15 minutes/day Special marci needs: No Seatbelt use: always Do you feel safe at home: Yes Additional Social history: lives alone-son and live next door and will be checking on patient post op Course Vital Signs Vital signs: Vital Signs Temperature 36.3 C L 11/05/23 09:24 Pulse 100 H 11/05/23 09:24 Respiratory Rate 24 11/05/23 09:24 Blood Pressure 170/83 H 11/05/23 09:24 Pulse Oximetry 97 11/05/23 09:24 Temperature 36.3 C L 11/05/23 10:00 Temperature Source Skin 11/05/23 10:00 Pulse 66 11/05/23 10:33 Pulse 77 11/05/23 10:40 Respiratory Rate 8 L 11/05/23 10:40 Respiratory Effort Normal, Non-Labored 11/05/23 10:46 Respiratory Depth Normal 11/05/23 10:46 Respiratory Pattern Normal 11/05/23 10:46 Blood Pressure 143/76 H 11/05/23 10:33 Blood Pressure Mean 99 11/05/23 10:33 Blood Pressure Position Sitting 11/05/23 10:00 Pulse Oximetry 97 11/05/23 10:00 Oxygen Delivery Method Room Air 11/05/23 10:00 Oxygen Flow Rate 0 11/05/23 10:00 Pain Level 4 11/05/23 10:26 Lab/Test Results Lab/Test Results: Laboratory Tests Range/Units 11/05/23 10:33 WBC (4.4-10.8) 10^3/uL 11.48 H RBC (3.93-5.22) 10^6/uL 3.89 L Hgb (11.2-15.7) g/dL 12.2 Hct (36.0-46.0) % 36.3 MCV (80-95) fL 93 MCH (27.0-33.0) pg 31.4 MCHC (32.0-36.0) % 33.6 RDW (11.7-14.6) % 12.4 Plt Count (130-400) 10^3/uL 272 MPV (8.0-11.0) fL 9.8 Immature Gran % 0.3 Neutrophils % 80.0 Lymphocytes % 9.8 Monocytes % 8.8 Eosinophils % 1.0 Basophils % 0.1 Nucleated RBC % (0.0-0.3) % 0.0 Absolute Neutrophils (1.2-6.7) 10^3/uL 9.18 H Absolute Lymphocytes (1.2-3.4) 10^3/uL 1.13 L Absolute Monocytes (0.1-0.8) 10^3/uL 1.01 H Absolute Eosinophils (0.0-0.7) 10^3/uL 0.11 Absolute Basophils (0.0-0.2) 10^3/uL 0.01 Medical Decision Making Lyubov is an 83-year-old female who is presenting with abdominal pain, diaphoresis, nausea, palpitations, and presyncopal symptoms, she states she has been sick since prior to and was tested positive for influenza and developed bacterial or suspected bacterial pneumonia, completed antibiotics and Tamiflu several weeks ago Feeling worse this week and this morning secondary to feeling like she might pass out called EMS She is reporting with headaches, left upper quadrant pain, denies any chest pain Electrolytes stable, vitals stable for patient Troponin minimally elevated at 65, repeat 3 hours later 66, no change in EKG [place] syncope placed patient at risk for serious outcome, recommendation for observation for dysrhythmia, patient is on amiodarone, she has been in normal sinus rhythm with a EKG that is largely unchanged from prior when compared At this time she still feels nauseous and generally unwell, she is agreeable to admission for observation overnight She will be given fluids for acute pancreatitis with stranding on her CT scan She will be on a clear liquid diet Case is discussed with Dr. Miles, he is agreeable to admission for telemetry monitoring and IV fluid resuscitation for acute pancreatitis Patient is DNR/DNI status Quality:[facility] Health Related Social Needs: No Data to Display Discharge Plan Disposition Patient Disposition: Admit to [facility] Condition: Stable Discharge Details Clinical Impression: Systemic lupus erythematosus, CKD (chronic kidney disease), stage III, Pre-syncope, Elevated troponin, Acute pancreatitis Primary Care Provider: Lyubov Tee V ED Provider: Yoanna Jha Home Meds and New Rx's Prescriptions: No Action famotidine 20 mg tablet 20 mg PO .COMPLEX Rx Instructions: 20 mg PO 5 days a week per patient Eliquis 2.5 mg tablet 2.5 mg PO BID calcitriol 0.25 mcg capsule 0.25 mcg PO Q OTHER DAY marce root extract 15 mg tablet,chewable 15 mg PO .PO polyethylene glycol 3350 [Miralax] 17 gram/dose powder 17 g PO DAILY PRN losartan 50 mg tablet 25 mg PO DAILY furosemide [Lasix] 40 mg tablet 40 mg PO BID Savella 50 mg tablet 50 mg PO BID docusate calcium 240 mg capsule 240 mg PO BID tramadol [Ultram] 50 mg tablet 50 mg PO BID PRN amiodarone [Pacerone] 200 mg Tablet 200 mg PO DAILY Qty: 0 0RF Arnuity Ellipta 100 mcg/actuation blister with device 1 inh INHALATION DAILY Patient Comments: INHALE ONE PUFF BY MOUTH EVERY DAY hydroxychloroquine 200 mg tablet 200 mg PO DAILY Patient Comments: TAKE ONE TABLET BY MOUTH EVERY DAY melatonin 10 mg capsule 10 mg PO QHS (DME) Oxygen Tank See Rx Instructions .ROUTE Patient Comments: Pt uses at night and throughout the day as needed. Rx Instructions: As directed acetaminophen [Tylenol Extra Strength] 500 mg tablet 500 mg PO Q6H PRNQty: 90 0RF albuterol sulfate 2.5 mg /3 mL (0.083 %) Solution For Nebulization 2.5 mg inhalation Q4H PRN nitroglycerin 0.4 mg Tablet, Sublingual 0.4 mg SUBLINGUAL Q5-15M PRN metoprolol succinate 50 mg tablet extended release 24 hr 25 mg PO DAILY Qty: 0 0RF
[2023-11-05 11:10] LABS: ALT 19 U/L (14-59); AST 21 U/L (15-37); Albumin 3.2 g/dL (3.4-5.0); Alkaline Phosphatase 93 U/L (46-116); Anion Gap 5.2 mmol/L (3-11); BUN 28 mg/dL (7-18); Bilirubin, Total 0.9 mg/dL (0.2-1.0); CO2 32.8 mmol/L (21.0-32.0); CREATININE 2.5 mg/dL (0.55-1.02); Calcium 9.4 mg/dL (8.5-10.1); Chloride 101 mmol/L (98-107); Estimated GFR 18.73 (mL/min/1.73m2); Glucose 125 mg/dL (74-106); Magnesium 2.2 mg/dL (1.8-2.4); Sodium 139 mmol/L (136-145); Total Protein 7.1 g/dL (6.4-8.2)
[2023-11-05 11:13] LABS: Troponin I 65 ng/L (< or =60)
[2023-11-05 11:17] LABS: TSH (W/Ref FT4) 1.32 uIU/mL (0.36-3.74)
--- NOTE | 2023-11-05 12:15 | RT.EKG_ITS ---
APPROVED REPORT Exam: Resting ECG Reason for Exam: Chest Pain Patient Location: E HR:82 bpm ECG Measurements Heart Rate 82 AXIS DE [id number] P [id number] QRSd 120 QRS -30 QT 412 T 27 QTc 483 Conclusion Atrial fibrillation...? atrial activity Incomplete left bundle branch block...QRSd>110mS, terminal axis(-90,-1)
[2023-11-05 13:01] LABS: Troponin I 66 ng/L (< or =60)
[2023-11-05 13:28] LABS: Lipase 343 U/L (16-77)
--- NOTE | 2023-11-05 14:26 | W.PM.HP.N ---
Date of service: 11/05/23 Time of Service: 14:43 Assessment and Plan Assessment and plan (1) Elevated troponin: Status: Acute Assessment and plan: - Emergency room PA patient to be admitted under observation status for an elevated troponin of 65 that went to 66 on repeat, despite normal EKG without changes, and patient denying any active or recent history of chest pain -Will follow-up a.m. troponin (2) Pancreatitis: Status: Chronic Assessment and plan: - Patient did complain of nausea, did have mildly elevated lipase of about 300 -, Liver, while in the emergency department she has not required any pain medications or antiemetics, and is tolerating p.o. intake -Continue to encourage p.o. fluid intake (3) Chronic kidney disease (CKD) stage G4/A3, severely decreased glomerular filtration rate (GFR) between 15-29 mL/min/1.73 square meter and albuminuria creatinine ratio greater than 300 mg/g: Status: Acute (4) Peripheral vascular disease, unspecified: Status: Chronic Assessment and plan: - Continue home regimen (5) Gastroesophageal reflux: Status: Chronic Assessment and plan: - Continue home regimen (6) Atrial fibrillation: Status: Chronic Assessment and plan: - Continue home regimen History of Present Illness History of Present Illness Chief Complaint: Nausea, high blood pressure, headache Narrative: 83-year-old female with past medical history of A-fib on amiodarone and half dose Eliquis who presents to the emergency department complaints of nausea, high blood pressure and headache. Patient states that she has felt unwell since around Jah at that time she was diagnosed with flu and pneumonia and was treated as an outpatient. She states that her headaches have been getting progressively worse and that she has been nauseous but has not experienced any, lightheadedness, dizziness, chest pain, shortness of breath, vomiting or diarrhea. In the emergency department the patient was noted as having normal vital signs, normal physical exam. She had a CT head chest abdomen pelvis which not show any acute findings. However, while CBC and CMP were unremarkable, she had a lipase of 300 and initial troponin of 65 which increased to 66 on repeat. EKG was unchanged and again patient denied any chest pain. However, emergency room PA paged hospitalist for admission for patient with elevated troponin who will require observation overnight. Review of Systems All systems reviewed & are unremarkable except as noted in HPI and below PFSH All Active Problems (Updated 11/05/23 @ 14:49 by KANCHAN Mancini) Acute pancreatitis (Acute) Pre-syncope (Acute) Pancreatitis (Chronic) Elevated troponin (Acute) Peripheral vascular disease, unspecified (Chronic) Toe pain, right (Acute) Hammer toe of right foot (Acute) Pain of right great toe (Acute) Chronic kidney disease (CKD) stage G4/A3, severely decreased glomerular filtration rate (GFR) between 15-29 mL/min/1.73 square meter and albuminuria creatinine ratio greater than 300 mg/g (Acute) eGFR 19 in 05/2023. Monitoring for long-term anticoagulant use (Acute) Restless legs (Acute) Edema (Acute) Basal cell carcinoma of skin (Acute) Idiopathic peripheral neuropathy (Acute) Hyperuricemia without signs inflammatory arthritis/tophaceous disease (Acute) Adjustment disorder (Chronic) Acquired cystic kidney disease (Acute) Systemic lupus erythematosus (Chronic) F/U with / Ramona @ [facility] [place] Hypertension (Chronic) Hyperlipidemia (Acute) Gastroesophageal reflux (Chronic) Fibromyalgia (Acute) CKD (chronic kidney disease), stage III (Acute) Atrial fibrillation (Chronic) Impairment of speech discrimination (Acute) GLADYS (obstructive sleep apnea) (Chronic) Biliary dyskinesia (Acute) COPD (chronic obstructive pulmonary disease) (Chronic) Abnormal biliary HIDA scan (Acute) Hammertoe of second toe of left foot (Acute) Paroxysmal atrial fibrillation (Chronic) Hyperlipidemia (Acute) Acute on chronic diastolic CHF (congestive heart failure), NYHA class 1 (Acute) Chronic diastolic CHF (congestive heart failure) (Acute) Chronic respiratory failure with hypoxia (Chronic) Pulmonary hypertension (Acute) Normocytic anemia (Chronic) Ambulatory dysfunction (Chronic) POLST (Physician Orders for Life-Sustaining Treatment) (Acute) done 02/16/20 DNR (do not resuscitate) (Acute) DNI (do not intubate) (Acute) Cyst of left kidney (Acute) Sensorineural hearing loss, bilateral (Acute) History of revision of total replacement of left knee joint (Acute 07/05/21) Bradycardia (Acute) Arthrofibrosis of total knee arthroplasty (Acute) Medical History (Updated 11/05/23 @ 14:49 by KANCHAN Mancini) Palliative care patient Brachial plexus disorders Low back pain Anemia Gallbladder Problem Nausea & vomiting Synovitis Furuncle of groin Dizziness Incisional hernia SOB (shortness of breath) Painful total knee replacement, left Hernia UTI (urinary tract infection) COVID-19 ruled out Goals of care, counseling/discussion Fall Discharge planning issues DVT prophylaxis NSTEMI (non-ST elevated myocardial infarction) pt. denies this Respiratory infection Hydronephrosis History of tobacco use Diverticulosis of colon Depression pt. denies this Intestinal adhesions Surgical History Draining postoperative wound S/P I& History of arthroplasty of left knee Status post total right knee replacement (~1997) Status post total left knee replacement (~1999) History of total right knee replacement (TKR) Hx of bilateral cataract extraction Hx of knee surgery History of partial colectomy partial bowel resection-colectomy with colosotmy ad reversal, abdominal adhesions S/p bilateral carpal tunnel release History of surgical removal of ganglion cyst both wrists History of hysterectomy Hx of section History of tonsillectomy and adenoidectomy Family History Father Heart disease Diabetes Mother Heart disease Hypertension Son Diabetes Granddaughter No problems noted. Granddaughter No problems noted. Daughter Hemochromatosis Social History Smoking/Tobacco Use Status: Former Tobacco Use Quit Date: 10/20/89 Smoking risk assessment performed?: Yes Alcohol Intake: current Alcohol Intake frequency: a few times a month Drug use: Never Substance use type: does not use Caregiver/Support person: No Household members: none Housing: apartment Communication Needs: Hard of Hearing and Corrective Lenses Education Level: high school Do you need help understanding health information?: Always Current gender identity: female How often do you talk on the phone with friends or family?: three or more times per week How often do you get together with friends or relatives?: three or more times per week Panel score (0-1 are the most socially isolated patients): 1 What type of physical activity do you participate in: walking and sedentary lifestyle Duration: < 15 minutes/day Special marci needs: No Seatbelt use: always Do you feel safe at home: Yes Additional Social history: lives alone-son and live next door and will be checking on patient post op Meds Allergies and Home Medications Allergies Allergy/AdvReac Type Severity Reaction Status Date / Time atorvastatin Allergy Severe Verified 11/05/23 09:28 Iodinated Contrast Media Allergy Severe Hives Verified 11/05/23 09:28 doxycycline Allergy Intermediate vomiting Verified 11/05/23 09:28 pantoprazole Allergy Intermediate abd pain, Verified 11/05/23 09:28 nausea, vomiting Sulfa (Sulfonamide AdvReac vomiting Verified 11/05/23 09:28 Antibiotics) Home Medications Medication Instructions Recorded Confirmed Type amiodarone 200 mg tablet (Pacerone) 200 mg PO DAILY #0 tabs 11/14/19 11/05/23 Rx acetaminophen 500 mg tablet 500 mg PO Q6H PRN #90 tabs 07/04/21 11/05/23 Rx (Tylenol Extra Strength) albuterol sulfate 2.5 mg/3 mL 2.5 mg inhalation Q4H PRN 07/16/21 11/05/23 History (0.083 %) solution for nebulization nitroglycerin 0.4 mg sublingual 0.4 mg sublingual Q5-15M PRN 08/15/21 11/05/23 History tablet metoprolol succinate 50 mg 25 mg (1/2 x 50 mg) PO DAILY #0 08/17/21 11/05/23 Rx tablet,extended release 24 hr tabs apixaban 2.5 mg tablet (Eliquis) 2.5 mg PO BID 10/08/21 11/05/23 History docusate calcium 240 mg capsule 240 mg PO BID 03/31/23 11/05/23 History furosemide 40 mg tablet (Lasix) 40 mg PO BID 03/31/23 11/05/23 History losartan 50 mg tablet 25 mg PO DAILY 03/31/23 11/05/23 History milnacipran 50 mg tablet (Savella) 50 mg PO BID 03/31/23 11/05/23 History famotidine 20 mg tablet 20 mg PO .COMPLEX 04/01/23 11/05/23 History tramadol 50 mg tablet (Ultram) 50 mg PO BID PRN 06/09/23 11/05/23 History calcitriol 0.25 mcg capsule 0.25 mcg PO Q OTHER DAY 06/13/23 11/05/23 History marce root extract 15 mg chewable 15 mg PO .PO 10/22/23 11/05/23 History tablet polyethylene glycol 3350 17 17 g PO DAILY PRN 10/22/23 11/05/23 History gram/dose oral powder (Miralax) Oxygen 11/05/23 11/05/23 History fluticasone furoate 100 1 inh inhalation DAILY 11/05/23 11/05/23 History mcg/actuation blister powder for inhalation (Arnuity Ellipta) hydroxychloroquine 200 mg tablet 200 mg PO DAILY 11/05/23 11/05/23 History melatonin 10 mg capsule 10 mg PO QHS 11/05/23 11/05/23 History metoprolol succinate 25 mg 25 mg PO DAILY 11/05/23 11/05/23 History tablet,extended release 24 hr Exam Narrative Exam Narrative: Well-appearing older female laying in bed in no acute distress, ANO x 4, heart regular rhythm, lungs clear to auscultation bilaterally, abdomen soft, nontender, nondistended Results Labs 11/05/23 10:33 11/05/23 10:33 Labs: Laboratory Results - last 24 hr 11/05/23 11/05/23 10:33 12:30 WBC 11.48 H RBC 3.89 L Hgb 12.2 Hct 36.3 MCV 93 MCH 31.4 MCHC 33.6 RDW 12.4 Plt Count 272 MPV 9.8 Immature Gran % 0.3 Neutrophils % 80.0 Lymphocytes % 9.8 Monocytes % 8.8 Eosinophils % 1.0 Basophils % 0.1 Nucleated RBC % 0.0 Absolute Neutrophils 9.18 H Absolute Lymphocytes 1.13 L Absolute Monocytes 1.01 H Absolute Eosinophils 0.11 Absolute Basophils 0.01 Sodium 139 Potassium 4.0 Chloride 101 Carbon Dioxide 32.8 H Anion Gap 5.2 BUN 28 H Creatinine 2.5 H Est GFR (CKD-EPI 2020) 18.73 Glucose 125 H Calcium 9.4 Magnesium 2.2 Total Bilirubin 0.9 AST 21 ALT 19 Alkaline Phosphatase 93 Troponin I 65 H* 66 H* Total Protein 7.1 Albumin 3.2 L Lipase 343 H TSH 1.32 Last Vital Signs Temp 97.3 F L 11/05/23 10:00 Pulse 67 11/05/23 14:01 Resp 21 11/05/23 14:10 BP 194/93 H 11/05/23 14:01 Pulse Ox 98 11/05/23 14:01 Time Spent Time spent with Patient: >75 minutes Time was spent: preparing to see the patient(eg.review tests), obtaining and/or reviewing separately otained hiistory, ordering medications,tests, procedures, referring, communicating with other health intensive care unit nurse, indepentently interpreting results, counseling the patient and care coordination
--- NOTE | 2023-11-05 15:22 | W.ED.GENAD ---
HPI General Date/Time Provider Initiated Documentation: 11/05/23 09:29. HPI Narrative: This 83-year-old female presents with report of dry heaves, blood pressure, headache. This Related Data Home Medications Medication Instructions Recorded Confirmed amiodarone 200 mg tablet (Pacerone) 200 mg PO DAILY #0 tabs 11/14/19 11/05/23 acetaminophen 500 mg tablet 500 mg PO Q6H PRN #90 tabs 07/04/21 11/05/23 (Tylenol Extra Strength) albuterol sulfate 2.5 mg/3 mL 2.5 mg inhalation Q4H PRN 07/16/21 11/05/23 (0.083 %) solution for nebulization nitroglycerin 0.4 mg sublingual 0.4 mg sublingual Q5-15M PRN 08/15/21 11/05/23 tablet metoprolol succinate 50 mg 25 mg (1/2 x 50 mg) PO DAILY #0 08/17/21 11/05/23 tablet,extended release 24 hr tabs apixaban 2.5 mg tablet (Eliquis) 2.5 mg PO BID 10/08/21 11/05/23 docusate calcium 240 mg capsule 240 mg PO BID 03/31/23 11/05/23 furosemide 40 mg tablet (Lasix) 40 mg PO BID 03/31/23 11/05/23 losartan 50 mg tablet 25 mg PO DAILY 03/31/23 11/05/23 milnacipran 50 mg tablet (Savella) 50 mg PO BID 03/31/23 11/05/23 famotidine 20 mg tablet 20 mg PO .COMPLEX 04/01/23 11/05/23 tramadol 50 mg tablet (Ultram) 50 mg PO BID PRN 06/09/23 11/05/23 calcitriol 0.25 mcg capsule 0.25 mcg PO Q OTHER DAY 06/13/23 11/05/23 marce root extract 15 mg chewable 15 mg PO .PO 10/22/23 11/05/23 tablet polyethylene glycol 3350 17 17 g PO DAILY PRN 10/22/23 11/05/23 gram/dose oral powder (Miralax) Oxygen 11/05/23 11/05/23 fluticasone furoate 100 1 inh inhalation DAILY 11/05/23 11/05/23 mcg/actuation blister powder for inhalation (Arnuity Ellipta) hydroxychloroquine 200 mg tablet 200 mg PO DAILY 11/05/23 11/05/23 melatonin 10 mg capsule 10 mg PO QHS 11/05/23 11/05/23 Previous Rx's Medication Instructions Recorded amiodarone 200 mg tablet (Pacerone) 200 mg PO DAILY #0 tabs 11/14/19 acetaminophen 500 mg tablet 500 mg PO Q6H PRN #90 tabs 07/04/21 (Tylenol Extra Strength) metoprolol succinate 50 mg 25 mg (1/2 x 50 mg) PO DAILY #0 08/17/21 tablet,extended release 24 hr tabs Allergies Allergy/AdvReac Type Severity Reaction Status Date / Time atorvastatin Allergy Severe Verified 11/05/23 09:28 Iodinated Contrast Media Allergy Severe Hives Verified 11/05/23 09:28 doxycycline Allergy Intermediate vomiting Verified 11/05/23 09:28 pantoprazole Allergy Intermediate abd pain, Verified 11/05/23 09:28 nausea, vomiting Sulfa (Sulfonamide AdvReac vomiting Verified 11/05/23 09:28 Antibiotics) General Stated Complaint: GenMedical COURT: 3 PFSH All Active Problems (Updated 11/05/23 @ 14:49 by KANCHAN Mancini) Acute pancreatitis (Acute) Pre-syncope (Acute) Pancreatitis (Chronic) Elevated troponin (Acute) Peripheral vascular disease, unspecified (Chronic) Toe pain, right (Acute) Hammer toe of right foot (Acute) Pain of right great toe (Acute) Chronic kidney disease (CKD) stage G4/A3, severely decreased glomerular filtration rate (GFR) between 15-29 mL/min/1.73 square meter and albuminuria creatinine ratio greater than 300 mg/g (Acute) eGFR 19 in 05/2023. Monitoring for long-term anticoagulant use (Acute) Restless legs (Acute) Edema (Acute) Basal cell carcinoma of skin (Acute) Idiopathic peripheral neuropathy (Acute) Hyperuricemia without signs inflammatory arthritis/tophaceous disease (Acute) Adjustment disorder (Chronic) Acquired cystic kidney disease (Acute) Systemic lupus erythematosus (Chronic) F/U with / Ramona @ [facility] [place] Hypertension (Chronic) Hyperlipidemia (Acute) Gastroesophageal reflux (Chronic) Fibromyalgia (Acute) CKD (chronic kidney disease), stage III (Acute) Atrial fibrillation (Chronic) Impairment of speech discrimination (Acute) GLADYS (obstructive sleep apnea) (Chronic) Biliary dyskinesia (Acute) COPD (chronic obstructive pulmonary disease) (Chronic) Abnormal biliary HIDA scan (Acute) Hammertoe of second toe of left foot (Acute) Paroxysmal atrial fibrillation (Chronic) Hyperlipidemia (Acute) Acute on chronic diastolic CHF (congestive heart failure), NYHA class 1 (Acute) Chronic diastolic CHF (congestive heart failure) (Acute) Chronic respiratory failure with hypoxia (Chronic) Pulmonary hypertension (Acute) Normocytic anemia (Chronic) Ambulatory dysfunction (Chronic) POLST (Physician Orders for Life-Sustaining Treatment) (Acute) done 02/16/20 DNR (do not resuscitate) (Acute) DNI (do not intubate) (Acute) Cyst of left kidney (Acute) Sensorineural hearing loss, bilateral (Acute) History of revision of total replacement of left knee joint (Acute 07/05/21) Bradycardia (Acute) Arthrofibrosis of total knee arthroplasty (Acute) Medical History (Updated 11/05/23 @ 14:49 by KANCHAN Mancini) Palliative care patient Brachial plexus disorders Low back pain Anemia Gallbladder Problem Nausea & vomiting Synovitis Furuncle of groin Dizziness Incisional hernia SOB (shortness of breath) Painful total knee replacement, left Hernia UTI (urinary tract infection) COVID-19 ruled out Goals of care, counseling/discussion Fall Discharge planning issues DVT prophylaxis NSTEMI (non-ST elevated myocardial infarction) pt. denies this Respiratory infection Hydronephrosis History of tobacco use Diverticulosis of colon Depression pt. denies this Intestinal adhesions Surgical History Draining postoperative wound S/P I& History of arthroplasty of left knee Status post total right knee replacement (~1997) Status post total left knee replacement (~1999) History of total right knee replacement (TKR) Hx of bilateral cataract extraction Hx of knee surgery History of partial colectomy partial bowel resection-colectomy with colosotmy ad reversal, abdominal adhesions S/p bilateral carpal tunnel release History of surgical removal of ganglion cyst both wrists History of hysterectomy Hx of section History of tonsillectomy and adenoidectomy Family History Father Heart disease Diabetes Mother Heart disease Hypertension Son Diabetes Granddaughter No problems noted. Granddaughter No problems noted. Daughter Hemochromatosis Social History Smoking/Tobacco Use Status: Former Tobacco Use Quit Date: 10/20/89 Smoking risk assessment performed?: Yes Alcohol Intake: current Alcohol Intake frequency: a few times a month Drug use: Never Substance use type: does not use Caregiver/Support person: No Household members: none Housing: house Communication Needs: Hard of Hearing and Corrective Lenses Education Level: high school Do you need help understanding health information?: Always Current gender identity: female How often do you talk on the phone with friends or family?: three or more times per week How often do you get together with friends or relatives?: three or more times per week Panel score (0-1 are the most socially isolated patients): 1 What type of physical activity do you participate in: walking and sedentary lifestyle Duration: < 15 minutes/day Special marci needs: No Seatbelt use: always Do you feel safe at home: Yes Additional Social history: lives alone-son and live next door and will be checking on patient post op Course Vital Signs Vital signs: Vital Signs Temperature 36.3 C L 11/05/23 09:24 Pulse 100 H 11/05/23 09:24 Respiratory Rate 24 11/05/23 09:24 Blood Pressure 170/83 H 11/05/23 09:24 Pulse Oximetry 97 11/05/23 09:24 Temperature 36.3 C L 11/05/23 10:00 Temperature Source Skin 11/05/23 10:00 Pulse 75 11/05/23 14:16 Pulse 72 11/05/23 14:20 Respiratory Rate 17 11/05/23 14:20 Respiratory Effort Normal, Non-Labored 11/05/23 10:46 Respiratory Depth Normal 11/05/23 10:46 Respiratory Pattern Normal 11/05/23 10:46 Blood Pressure 132/75 11/05/23 14:16 Blood Pressure Mean 90 11/05/23 14:16 Blood Pressure Position Sitting 11/05/23 10:00 Pulse Oximetry 99 11/05/23 14:20 Oxygen Delivery Method Room Air 11/05/23 10:00 Oxygen Flow Rate 0 11/05/23 10:00 Pain Level 4 11/05/23 10:26 Lab/Test Results Lab/Test Results: Laboratory Tests Range/Units 11/05/23 11/05/23 10:33 12:30 WBC (4.4-10.8) 10^3/uL 11.48 H RBC (3.93-5.22) 10^6/uL 3.89 L Hgb (11.2-15.7) g/dL 12.2 Hct (36.0-46.0) % 36.3 MCV (80-95) fL 93 MCH (27.0-33.0) pg 31.4 MCHC (32.0-36.0) % 33.6 RDW (11.7-14.6) % 12.4 Plt Count (130-400) 10^3/uL 272 MPV (8.0-11.0) fL 9.8 Immature Gran % 0.3 Neutrophils % 80.0 Lymphocytes % 9.8 Monocytes % 8.8 Eosinophils % 1.0 Basophils % 0.1 Nucleated RBC % (0.0-0.3) % 0.0 Absolute Neutrophils (1.2-6.7) 10^3/uL 9.18 H Absolute Lymphocytes (1.2-3.4) 10^3/uL 1.13 L Absolute Monocytes (0.1-0.8) 10^3/uL 1.01 H Absolute Eosinophils (0.0-0.7) 10^3/uL 0.11 Absolute Basophils (0.0-0.2) 10^3/uL 0.01 Sodium (136-145) mmol/L 139 Potassium (3.5-5.1) mmol/L 4.0 Chloride (98-107) mmol/L 101 Carbon Dioxide (21.0-32.0) mmol/L 32.8 H Anion Gap (3-11) mmol/L 5.2 BUN (7-18) mg/dL 28 H Creatinine (0.55-1.02) mg/dL 2.5 H Est GFR (CKD-EPI 2020) (mL/min/1.73m2) 18.73 Glucose (74-106) mg/dL 125 H Calcium (8.5-10.1) mg/dL 9.4 Magnesium (1.8-2.4) mg/dL 2.2 Total Bilirubin (0.2-1.0) mg/dL 0.9 AST (15-37) U/L 21 ALT (14-59) U/L 19 Alkaline Phosphatase (46-116) U/L 93 Troponin I (< or =60) ng/L 65 H* 66 H* Total Protein (6.4-8.2) g/dL 7.1 Albumin (3.4-5.0) g/dL 3.2 L Lipase (16-77) U/L 343 H TSH (0.36-3.74) uIU/mL 1.32 Medical Decision Making Quality:SDOH Health Related Social Needs: No Data to Display Discharge Plan Disposition Patient Disposition: Admit to [facility] Condition: Stable Discharge Details Clinical Impression: Systemic lupus erythematosus, CKD (chronic kidney disease), stage III, Pre-syncope, Elevated troponin, Acute pancreatitis Primary Care Provider: Lyubov Tee V ED Provider: Yoanna Jha Home Meds and New Rx's Prescriptions: No Action famotidine 20 mg tablet 20 mg PO .COMPLEX Rx Instructions: 20 mg PO 5 days a week per patient Eliquis 2.5 mg tablet 2.5 mg PO BID calcitriol 0.25 mcg capsule 0.25 mcg PO Q OTHER DAY marce root extract 15 mg tablet,chewable 15 mg PO .PO polyethylene glycol 3350 [Miralax] 17 gram/dose powder 17 g PO DAILY PRN losartan 50 mg tablet 25 mg PO DAILY furosemide [Lasix] 40 mg tablet 40 mg PO BID Savella 50 mg tablet 50 mg PO BID docusate calcium 240 mg capsule 240 mg PO BID tramadol [Ultram] 50 mg tablet 50 mg PO BID PRN amiodarone [Pacerone] 200 mg Tablet 200 mg PO DAILY Qty: 0 0RF Arnuity Ellipta 100 mcg/actuation blister with device 1 inh INHALATION DAILY Patient Comments: INHALE ONE PUFF BY MOUTH EVERY DAY hydroxychloroquine 200 mg tablet 200 mg PO DAILY Patient Comments: TAKE ONE TABLET BY MOUTH EVERY DAY melatonin 10 mg capsule 10 mg PO QHS (DME) Oxygen Tank See Rx Instructions .ROUTE Patient Comments: Pt uses at night and throughout the day as needed. Rx Instructions: As directed acetaminophen [Tylenol Extra Strength] 500 mg tablet 500 mg PO Q6H PRNQty: 90 0RF albuterol sulfate 2.5 mg /3 mL (0.083 %) Solution For Nebulization 2.5 mg inhalation Q4H PRN nitroglycerin 0.4 mg Tablet, Sublingual 0.4 mg SUBLINGUAL Q5-15M PRN metoprolol succinate 50 mg tablet extended release 24 hr 25 mg PO DAILY Qty: 0 0RF
--- NOTE | 2023-11-05 17:13 | PHA.REVIEW2 ---
Pharmacy Admission Review Admission Clinical Review Admission Pharmacy Review: (Updated 11/05/23 @ 14:49 by KANCHAN Mancini) Acute pancreatitis (Acute) Pre-syncope (Acute) Elevated troponin (Acute) Chronic kidney disease (CKD) stage G4/A3, severely decreased glomerular filtration rate (GFR) between 15-29 mL/min/1.73 square meter and albuminuria creatinine ratio greater than 300 mg/g (Acute) CKD (chronic kidney disease), stage III (Acute) atorvastatin Allergy (Severe, Verified 11/05/23 09:28) Iodinated Contrast Media Allergy (Severe, Verified 11/05/23 09:28) Hives doxycycline Allergy (Intermediate, Verified 11/05/23 09:28) vomiting pantoprazole Allergy (Intermediate, Verified 11/05/23 09:28) abd pain, nausea, vomiting Sulfa (Sulfonamide Antibiotics) Adverse Reaction (Verified 11/05/23 09:28) vomiting Resuscitation Status DNR/DNI Height 5 ft 6 in Weight 88.451 kg Pharmacy Admission Review Renal Dosing Renal Dosing: BUN 28 mg/dL (7-18) H 11/05/23 10:33 Creatinine 2.5 mg/dL (0.55-1.02) H 11/05/23 10:33 Medications needing adjustments: Reviewed (CrCl 19.44 mL/min) Anticoagulation Anticoagulation: Hgb 12.2 g/dL (11.2-15.7) 11/05/23 10:33 Hct 36.3 % (36.0-46.0) 11/05/23 10:33 Plt Count 272 10^3/uL (130-400) 11/05/23 10:33 Creatinine 2.5 mg/dL (0.55-1.02) H 11/05/23 10:33 DVT Prophylaxis: Reviewed Medications: Apixaban (2.5mg BID) Relevant Labs Relevant Labs: Sodium 139 mmol/L (136-145) 11/05/23 10:33 Potassium 4.0 mmol/L (3.5-5.1) 11/05/23 10:33 Chloride 101 mmol/L (98-107) 11/05/23 10:33 Magnesium 2.2 mg/dL (1.8-2.4) 11/05/23 10:33 Electrolytes, C-Reactive P, ESR: Reviewed (Lipase 343, albumin 3.2) Cardiac Review Cardiac Review: Blood Pressure 172/94 1613 Blood Pressure 165/90 1446 Blood Pressure 156/74 1431 Blood Pressure 132/75 1416 Blood Pressure 194/93 1401 Blood Pressure 171/90 1346 Troponin I 66 ng/L (< or =60) H* 11/05/23 12:30 BP, HR, EF%: Reviewed (HR WNL, BP 172/94, repeat troponin pending) QTc Review QTc: Reviewed (483 11/05/23) IV to PO Switch IV Medications: Reviewed Home Meds Home Med List reviewed: Intervened Relevent Home Meds Not ordered & why?: Updated home med list Takes losartan 50mg BID at home, order was entered as 25mg daily. Reached out to provider and changed order. No orders for calcitriol and milnacipran, reached out to provider who asked that orders be put in. At home inhaler Arnuity was substituted to formulary medication Asmanex Current Meds Current Medication Order Review: Reviewed
[2023-11-05 18:15] LABS: Troponin I 61 ng/L (< or =60)
[2023-11-05] MEDS: Apixaban 2.5 MG TAB PO (20:41)
[2023-11-05] MEDS: Losartan 50 MG TAB PO (20:41)
[2023-11-05] MEDS: Furosemide 40 MG TAB PO (20:41)
[2023-11-05] MEDS: Normal Saline Flush 10 ML SYR IVP (20:41)
[2023-11-06 03:17] VITALS: BP 109/70; PULSE 93; RESP 17; TEMP 36.8; O2SAT 96
[2023-11-06 06:37] LABS: HCT 33.8 % (36.0-46.0); HGB 11.5 g/dL (11.2-15.7); MCH 31.6 pg (27.0-33.0); MCV 93 fL (80-95); MPV 10.8 fL (8.0-11.0); Platelet Count 255 10^3/uL (130-400); RBC 3.64 10^6/uL (3.93-5.22); RDW 12.6 % (11.7-14.6); RDW-SD 42.8 fL; WBC 8.33 10^3/uL (4.4-10.8)
[2023-11-06 07:31] LABS: Anion Gap 4.6 mmol/L (3-11); BUN 24 mg/dL (7-18); CO2 30.4 mmol/L (21.0-32.0); CREATININE 2.2 mg/dL (0.55-1.02); Calcium 9.1 mg/dL (8.5-10.1); Chloride 103 mmol/L (98-107); Estimated GFR 21.84 (mL/min/1.73m2); Glucose 116 mg/dL (74-106); Magnesium 2.1 mg/dL (1.8-2.4); Potassium 3.9 mmol/L (3.5-5.1); Sodium 138 mmol/L (136-145)
[2023-11-06 07:32] LABS: Troponin I 63 ng/L (< or =60)
[2023-11-06 07:51] VITALS: BP 148/87; PULSE 88; RESP 16; TEMP 37; O2SAT 96
[2023-11-06] MEDS: Mometasone 220 MCG 14 DOSE INHALER 1 PUFF IH (08:04)
[2023-11-06] MEDS: Hydroxychloroquine 200 MG TAB PO (08:52)
[2023-11-06] MEDS: Calcitriol 0.25 MCG CAP PO (08:56)
[2023-11-06] MEDS: Apixaban 2.5 MG TAB PO (08:56)
[2023-11-06] MEDS: Losartan 50 MG TAB PO (09:26)
[2023-11-06] MEDS: Normal Saline Flush 10 ML SYR IVP (09:27)
[2023-11-06] MEDS: Amiodarone 200 MG TAB PO (09:27)
[2023-11-06] MEDS: Furosemide 40 MG TAB PO (09:27)
--- NOTE | 2023-11-06 10:32 | W.PM.DS.N ---
Date of service: 11/06/23 Time of Service: 10:32 DS: Diagnosis Discharge Diagnosis (1) Elevated troponin: Status: Acute Asessment and Plan: - Emergency room PA asked for patient to be admitted under observation status for an elevated troponin of 65 that went to 66 on repeat, despite normal EKG without changes, and patient denying any active or recent history of chest pain -Patient remeind asymptomatic during hospitalization -repeat trop in AM was 62 (2) Pancreatitis: Status: Chronic Asessment and Plan: - Patient did complain of nausea, did have mildly elevated lipase of about 300 -while in the emergency department she has not required any pain medications or antiemetics, and is tolerating p.o. intake -was able to tolerate PO intake without pain medications or antiemetics during hospitalization (3) Chronic kidney disease (CKD) stage G4/A3, severely decreased glomerular filtration rate (GFR) between 15-29 mL/min/1.73 square meter and albuminuria creatinine ratio greater than 300 mg/g: Status: Acute (4) Peripheral vascular disease, unspecified: Status: Chronic (5) Gastroesophageal reflux: Status: Chronic (6) Atrial fibrillation: Status: Chronic Discharge Plan Disposition Patient Disposition: Home Condition: Good Discharge Details Reason For Visit: Elevated Troponin Admit Date/Time: 11/05/23 14:21 Admit Provider: Edgar Miles Attending Provider: Edgar Miles Primary Care Provider: Lyubov Tee V Hospital Course Hospital Course: Patient was admitted for observation due to her mildly elevated troponin of 65 upon arrival to the emergency department and increased to 66. Patient denies any chest pain did not have any EKG changes. Additionally, on the morning of discharge her troponin was 62. The patient continued to have no chest pain, or shortness of breath, therefore was determined that she was stable for discharge home Home Meds and New Rx's Prescriptions: Continued famotidine 20 mg tablet 20 mg PO .COMPLEX Rx Instructions: 20 mg PO 5 days a week per patient Eliquis 2.5 mg tablet 2.5 mg PO BID calcitriol 0.25 mcg capsule 0.25 mcg PO Q OTHER DAY marce root extract 15 mg tablet,chewable 15 mg PO .PO polyethylene glycol 3350 [Miralax] 17 gram/dose powder 17 g PO DAILY PRN losartan 50 mg tablet 25 mg PO DAILY furosemide [Lasix] 40 mg tablet 40 mg PO BID Savella 50 mg tablet 50 mg PO BID docusate calcium 240 mg capsule 240 mg PO BID tramadol [Ultram] 50 mg tablet 50 mg PO BID PRN amiodarone [Pacerone] 200 mg Tablet 200 mg PO DAILY Qty: 0 0RF Arnuity Ellipta 100 mcg/actuation blister with device 1 inh INHALATION DAILY Patient Comments: INHALE ONE PUFF BY MOUTH EVERY DAY hydroxychloroquine 200 mg tablet 200 mg PO DAILY Patient Comments: TAKE ONE TABLET BY MOUTH EVERY DAY melatonin 10 mg capsule 10 mg PO QHS (DME) Oxygen Tank See Rx Instructions .ROUTE Patient Comments: Pt uses at night and throughout the day as needed. Rx Instructions: As directed metoprolol succinate 25 mg tablet extended release 24 hr 25 mg PO DAILY Patient Comments: TAKE ONE TABLET BY MOUTH EVERY DAY acetaminophen [Tylenol Extra Strength] 500 mg tablet 500 mg PO Q6H PRNQty: 90 0RF albuterol sulfate 2.5 mg /3 mL (0.083 %) Solution For Nebulization 2.5 mg inhalation Q4H PRN nitroglycerin 0.4 mg Tablet, Sublingual 0.4 mg SUBLINGUAL Q5-15M PRN Discharge Instructions Activity:: Activity as Tolerated Equipment/Supplies:: No Equipment Needed Diet:: As Tolerated Discharge Orders Discharge Orders: Discharge Order (Routine); Ordered 11/06/23 Ordered By: Edgar Miles DS: Summary Time Spent with Patient providing and/or coordinating discharge services: Greater than 30 minutes Status at Discharge Functional status at discharge: independent ambulation Overall status at discharge: patient is back to baseline Mental Status: mental status grossly normal Speech and Movement: speech and movement normal Mood: congruent mood Affect: normal affect Quality:SDOH Health Related Social Needs: No Data to Display Exam Narrative Exam Narrative: Well-appearing older female laying in bed in no acute distress, ANO x 4, heart regular rhythm, lungs clear to auscultation bilaterally, abdomen soft, nontender, nondistended Psych Mental Status: mental status grossly normal Speech and Movement: speech and movement normal Mood: congruent mood Affect: normal affect DS: Data Vitals/I&O Vitals and I&O: Vital Signs Temperature 98.6 F 11/06/23 07:51 Temperature Source Tympanic 11/06/23 07:51 Pulse 88 11/06/23 07:51 Pulse Rhythm Irregular 11/06/23 08:45 Pulse 72 11/05/23 15:50 Respiratory Rate 16 11/06/23 07:51 Respiratory Effort Normal, Non-Labored, Short of Breath 11/06/23 08:45 Respiratory Depth Normal 11/06/23 08:45 Respiratory Pattern Normal 11/06/23 08:45 Blood Pressure 148/87 H 11/06/23 07:51 Blood Pressure Mean 118 11/05/23 14:46 Blood Pressure Position Sitting 11/05/23 10:00 Pulse Oximetry 96 11/06/23 07:51 Oxygen Delivery Method Room Air 11/06/23 07:51 Oxygen Flow Rate 0 11/06/23 07:51 Pain Level 0 11/06/23 07:51 Intake & Output 11/05/23 11/06/23 11/06/23 17:59 05:59 17:59 Intake Total 1110 / 1110 570 / 1680 Balance 1110 / 1110 570 / 1680 Weight 195 lb Intake: IV 1110 / 1110 Oral 570 / 570 Other: Urine Color Yellow Yellow Urine Appearance Clear Clear Urine Odor None Comment pt ambulates to bathroom independantly pT stated she voided. Stool Size Moderate Stool Characteristics Formed Brown Voiding Methods Toilet Toilet Data Completed and Pending Labs on day of discharge: Labs from last 24 hours 11/06/23 11/06/23 11/05/23 07:07 05:53 17:40 WBC 8.33 RBC 3.64 L Hgb 11.5 Hct 33.8 L MCV 93 MCH 31.6 MCHC 34.0 RDW 12.6 Plt Count 255 MPV 10.8 Immature Gran % Neutrophils % Lymphocytes % Monocytes % Eosinophils % Basophils % Nucleated RBC % Absolute Neutrophils Absolute Lymphocytes Absolute Monocytes Absolute Eosinophils Absolute Basophils Sodium 138 Cancelled Potassium 3.9 Cancelled Chloride 103 Cancelled Carbon Dioxide 30.4 Cancelled Anion Gap 4.6 Cancelled BUN 24 H Cancelled Creatinine 2.2 H Cancelled Est GFR (CKD-EPI 2020) 21.84 Cancelled Glucose 116 H Cancelled Calcium 9.1 Cancelled Magnesium 2.1 Cancelled Total Bilirubin AST ALT Alkaline Phosphatase Troponin I 63 H* Cancelled 61 H Total Protein Albumin Lipase TSH 11/05/23 11/05/23 12:30 10:33 WBC 11.48 H RBC 3.89 L Hgb 12.2 Hct 36.3 MCV 93 MCH 31.4 MCHC 33.6 RDW 12.4 Plt Count 272 MPV 9.8 Immature Gran % 0.3 Neutrophils % 80.0 Lymphocytes % 9.8 Monocytes % 8.8 Eosinophils % 1.0 Basophils % 0.1 Nucleated RBC % 0.0 Absolute Neutrophils 9.18 H Absolute Lymphocytes 1.13 L Absolute Monocytes 1.01 H Absolute Eosinophils 0.11 Absolute Basophils 0.01 Sodium 139 Potassium 4.0 Chloride 101 Carbon Dioxide 32.8 H Anion Gap 5.2 BUN 28 H Creatinine 2.5 H Est GFR (CKD-EPI 2020) 18.73 Glucose 125 H Calcium 9.4 Magnesium 2.2 Total Bilirubin 0.9 AST 21 ALT 19 Alkaline Phosphatase 93 Troponin I 66 H* 65 H* Total Protein 7.1 Albumin 3.2 L Lipase 343 H TSH 1.32 PFSH All Active Problems (Updated 11/05/23 @ 14:49 by KANCHAN Mancini) Acute pancreatitis (Acute) Pre-syncope (Acute) Pancreatitis (Chronic) Elevated troponin (Acute) Peripheral vascular disease, unspecified (Chronic) Toe pain, right (Acute) Hammer toe of right foot (Acute) Pain of right great toe (Acute) Chronic kidney disease (CKD) stage G4/A3, severely decreased glomerular filtration rate (GFR) between 15-29 mL/min/1.73 square meter and albuminuria creatinine ratio greater than 300 mg/g (Acute) eGFR 19 in 05/2023. Monitoring for long-term anticoagulant use (Acute) Restless legs (Acute) Edema (Acute) Basal cell carcinoma of skin (Acute) Idiopathic peripheral neuropathy (Acute) Hyperuricemia without signs inflammatory arthritis/tophaceous disease (Acute) Adjustment disorder (Chronic) Acquired cystic kidney disease (Acute) Systemic lupus erythematosus (Chronic) [place] [facility] [place]pertension (Chronic) Hyperlipidemia (Acute) Gastroesophageal reflux (Chronic) Fibromyalgia (Acute) CKD (chronic kidney disease), stage III (Acute) Atrial fibrillation (Chronic) Impairment of speech discrimination (Acute) GLADYS (obstructive sleep apnea) (Chronic) Biliary dyskinesia (Acute) COPD (chronic obstructive pulmonary disease) (Chronic) Abnormal biliary HIDA scan (Acute) Hammertoe of second toe of left foot (Acute) Paroxysmal atrial fibrillation (Chronic) Hyperlipidemia (Acute) Acute on chronic diastolic CHF (congestive heart failure), NYHA class 1 (Acute) Chronic diastolic CHF (congestive heart failure) (Acute) Chronic respiratory failure with hypoxia (Chronic) Pulmonary hypertension (Acute) Normocytic anemia (Chronic) Ambulatory dysfunction (Chronic) POLST (Physician Orders for Life-Sustaining Treatment) (Acute) done 02/16/20 DNR (do not resuscitate) (Acute) DNI (do not intubate) (Acute) Cyst of left kidney (Acute) Sensorineural hearing loss, bilateral (Acute) History of revision of total replacement of left knee joint (Acute 07/05/21) Bradycardia (Acute) Arthrofibrosis of total knee arthroplasty (Acute) Medical History (Updated 11/05/23 @ 14:49 by KANCHAN Mancini) Palliative care patient Brachial plexus disorders Low back pain Anemia Gallbladder Problem Nausea & vomiting Synovitis Furuncle of groin Dizziness Incisional hernia SOB (shortness of breath) Painful total knee replacement, left Hernia UTI (urinary tract infection) COVID-19 ruled out Goals of care, counseling/discussion Fall Discharge planning issues DVT prophylaxis NSTEMI (non-ST elevated myocardial infarction) pt. denies this Respiratory infection Hydronephrosis History of tobacco use Diverticulosis of colon Depression pt. denies this Intestinal adhesions Surgical History Draining postoperative wound S/P I& History of arthroplasty of left knee Status post total right knee replacement (~1997) Status post total left knee replacement (~1999) History of total right knee replacement (TKR) Hx of bilateral cataract extraction Hx of knee surgery History of partial colectomy partial bowel resection-colectomy with colosotmy ad reversal, abdominal adhesions S/p bilateral carpal tunnel release History of surgical removal of ganglion cyst both wrists History of hysterectomy Hx of section History of tonsillectomy and adenoidectomy Family History Father Heart disease Diabetes Mother Heart disease Hypertension Son Diabetes Granddaughter No problems noted. Granddaughter No problems noted. Daughter Hemochromatosis Social History Smoking/Tobacco Use Status: Former Tobacco Use Quit Date: 10/20/89 Smoking risk assessment performed?: Yes Alcohol Intake: current Alcohol Intake frequency: a few times a month Drug use: Never Substance use type: does not use Caregiver/Support person: No Household members: none Housing: apartment Communication Needs: Hard of Hearing and Corrective Lenses Education Level: high school Do you need help understanding health information?: Always Current gender identity: female How often do you talk on the phone with friends or family?: three or more times per week How often do you get together with friends or relatives?: three or more times per week Panel score (0-1 are the most socially isolated patients): 1 What type of physical activity do you participate in: walking and sedentary lifestyle Duration: < 15 minutes/day Special marci needs: No Seatbelt use: always Do you feel safe at home: Yes Additional Social history: lives alone-son and live next door and will be checking on patient post op Time Spent with Patient Time Spent with Patient: <45 minutes Time was spent: preparing to see the patient(eg.review tests), obtaining and/or reviewing separately otained hiistory, ordering medications,tests, procedures, referring, communicating with other health field care manager, indepentently interpreting results, counseling the patient and care coordination
[2023-11-06 11:22] VITALS: BP 152/80; PULSE 96; RESP 16; TEMP 36.2; O2SAT 97
[2023-11-06] MEDS: Ondansetron O.D.T. 4 MG TABEF PO (11:27)
== END 2023-11-06 13:24 | disposition home or self-care (01) ==
LOC: ER 15:04 → MS 16:01
PROVIDERS: Admitting Provider Family Medicine; Emergency Provider Physician Assistant; PCP Family Medicine; Visit Provider Family Medicine
DX: R11.0 Nausea (principal); R51.9 Headache, unspecified; R74.8 Abnormal levels of other serum enzymes; K85.90 Acute pancreatitis without necrosis or infection, unspecified; I73.9 Peripheral vascular disease, unspecified; N18.4 Chronic kidney disease, stage 4 (severe); K21.9 Gastro-esophageal reflux disease without esophagitis; Z79.899 Other long term (current) drug therapy; Z79.01 Long term (current) use of anticoagulants; J44.9 Chronic obstructive pulmonary disease, unspecified; G47.33 Obstructive sleep apnea (adult) (pediatric); H90.3 Sensorineural hearing loss, bilateral; J96.11 Chronic respiratory failure with hypoxia; I50.32 Chronic diastolic (congestive) heart failure; I48.0 Paroxysmal atrial fibrillation; D64.9 Anemia, unspecified; Z66 Do not resuscitate; Z96.652 Presence of left artificial knee joint; E78.5 Hyperlipidemia, unspecified; M79.7 Fibromyalgia; I27.20 Pulmonary hypertension, unspecified; G62.9 Polyneuropathy, unspecified
CPT/HCPCS: 00123; 36415; 80048; 80053; 83690; 85027; 93005; 94640; 96361; 96365; 96375; 99285; 70450; 71046; 74176; 83735; 84443; 84484; 85025; 93010; 99223; 99239; G0378; J0131; J0780

== ENCOUNTER → 2023-11-21 10:24 | Outpatient (BNVA) | payer MEDICARE, SELFPAY | PROVIDERS: PCP Nurse Practitioner Family; Referring Provider Family Medicine; Visit Provider Physical Therapy Assistant | DX: I73.9 Peripheral vascular disease, unspecified (principal) | CPT/HCPCS: 93922 ==

== ENCOUNTER 2023-12-05 02:54 | Outpatient (CLI) | payer MEDICARE, SELFPAY ==
[2023-12-05 16:02] LABS: ALT 18 U/L (14-59); AST 20 U/L (15-37); Alkaline Phosphatase 89 U/L (46-116); Anion Gap 12.2 mmol/L (3-11); BUN 32 mg/dL (7-18); Bilirubin, Total 0.6 mg/dL (0.2-1.0); CO2 28.8 mmol/L (21.0-32.0); CREATININE 2.4 mg/dL (0.55-1.02); Calcium 9.6 mg/dL (8.5-10.1); Chloride 103 mmol/L (98-107); Estimated GFR 19.67 (mL/min/1.73m2); Glucose 162 mg/dL (74-106); Lipase 72 U/L (16-77); Potassium 3.8 mmol/L (3.5-5.1); Sodium 144 mmol/L (136-145); Total Protein 7.5 g/dL (6.4-8.2)
[2023-12-05 16:17] LABS: Iron 108 ug/dL (50-170); Total Iron Binding Capacity 280 ug/dL (250-450); Transferrin Sat 39 % (15-50)
[2023-12-05 22:21] LABS: Parathyroid Hormone,Intact 223 pg/mL (19-88)
[2023-12-08 11:14] LABS: Kappa Free Light Chain 4.53 mg/dL (0.33-1.94); Lambda Free Light Chain 2.24 mg/dL (0.57-2.63)
== END 2023-12-05 02:55 | disposition home or self-care (01) ==
LOC: LBO 02:54
PROVIDERS: PCP Nurse Practitioner Family; Visit Provider Internal Medicine Nephrology
DX: D64.9 Anemia, unspecified (principal); R11.2 Nausea with vomiting, unspecified
CPT/HCPCS: 36415; 80053; 83690; 82043; 82570; 83540; 83550; 83883; 83970; 84100

== ENCOUNTER 2023-12-06 15:30 | Outpatient (REF) | payer MEDICARE, SELFPAY ==
[2023-12-09 10:41] LABS: Albumin, Random Ur 96.5 mg/L; Albumin/Creatinine Ratio 52 mg/g (<25)
== END 2023-12-06 15:31 | disposition home or self-care (01) ==
LOC: LBN 15:30
PROVIDERS: PCP Nurse Practitioner Family; Visit Provider Internal Medicine Nephrology
DX: N18.4 Chronic kidney disease, stage 4 (severe) (principal)
CPT/HCPCS: 82043; 82570

== ENCOUNTER → 2023-12-11 13:00 | Outpatient (BNVA) | payer MEDICARE, SELFPAY | PROVIDERS: PCP Nurse Practitioner Family; Referring Provider Family Medicine; Visit Provider Internal Medicine Cardiovascular Disease | DX: I48.91 Unspecified atrial fibrillation (principal); I10 Essential (primary) hypertension | CPT/HCPCS: 99213 ==

== ENCOUNTER → 2023-12-15 09:01 | Outpatient (BNVA) | payer MEDICARE, SELFPAY | PROVIDERS: PCP Nurse Practitioner Family; Referring Provider Nurse Practitioner Family; Visit Provider Podiatrist | DX: M20.41 Other hammer toe(s) (acquired), right foot; M79.674 Pain in right toe(s); G60.9 Hereditary and idiopathic neuropathy, unspecified; I73.9 Peripheral vascular disease, unspecified | CPT/HCPCS: 99214 ==

== ENCOUNTER 2024-01-09 01:45 | Outpatient (CLI) | payer MEDICARE, SELFPAY ==
[2024-01-09 12:21] LABS: Abs Immature Grans 0.02 10^3/uL (0.0-0.06); Absolute Basophil Count 0.03 10^3/uL (0.0-0.2); Absolute Eosinophil Count 0.19 10^3/uL (0.0-0.7); Absolute Lymphocyte Count 1.19 10^3/uL (1.2-3.4); Absolute Monocyte Count 0.51 10^3/uL (0.1-0.8); Absolute Neutrophil Count 4.08 10^3/uL (1.2-6.7); Basophils % 0.5; Eosinophils % 3.2; HCT 35.7 % (36.0-46.0); HGB 11.6 g/dL (11.2-15.7); Immature Grans % 0.3; Lymphocytes % 19.8; MCH 32.3 pg (27.0-33.0); MCHC 32.5 % (32.0-36.0); MCV 99 fL (80-95); Monocytes % 8.5; Neutrophils % 67.7; Platelet Count 338 10^3/uL (130-400); RBC 3.59 10^6/uL (3.93-5.22); RDW 12.9 % (11.7-14.6); RDW-SD 46.9 fL; WBC 6.02 10^3/uL (4.4-10.8)
[2024-01-09 12:59] LABS: ALT 20 U/L (14-59); AST 19 U/L (15-37); Albumin 3.9 g/dL (3.4-5.0); Alkaline Phosphatase 104 U/L (46-116); Anion Gap 10.4 mmol/L (3-11); BUN 32 mg/dL (7-18); Bilirubin, Total 0.4 mg/dL (0.2-1.0); CO2 29.6 mmol/L (21.0-32.0); CREATININE 2.4 mg/dL (0.55-1.02); Calcium 9.2 mg/dL (8.5-10.1); Calculated LDL 183 mg/dL (<100); Chloride 106 mmol/L (98-107); Cholesterol 284 mg/dL (<200); Estimated GFR 19.67 (mL/min/1.73m2); Glucose 129 mg/dL (74-106); HDL Cholesterol 62 mg/dL (40-60); Potassium 3.8 mmol/L (3.5-5.1); Sodium 146 mmol/L (136-145); Total Protein 7.4 g/dL (6.4-8.2); Triglyceride 197 mg/dL (<150)
[2024-01-09 18:45] LABS: Hepatitis C Ab w Rflx HCV PCR Negative (Negative)
[2024-01-11 20:44] LABS: Lab Add On Test DONE
[2024-01-11 21:24] LABS: Ferritin 136 ng/mL (8-252); Vitamin B12 1532 pg/mL (193-986)
[2024-01-11 21:25] LABS: Folate > 20.0 ng/mL (8.6-20.0)
[2024-01-11 21:34] LABS: Uric Acid 8.9 mg/dL (2.6-6.0)
== END 2024-01-09 01:46 | disposition home or self-care (01) ==
LOC: LOS 01:46
PROVIDERS: PCP Nurse Practitioner Family; Visit Provider Nurse Practitioner Family
DX: J96.11 Chronic respiratory failure with hypoxia (principal); E79.0 Hyperuricemia without signs of inflammatory arthritis and tophaceous disease; D64.9 Anemia, unspecified
CPT/HCPCS: 36415; 80053; 80061; 86803; 82607; 82728; 82746; 84550; 85025

== ENCOUNTER 2024-02-13 01:14 | Outpatient (CLI) | payer MEDICARE, SELFPAY ==
[2024-02-13 12:42] LABS: Abs Immature Grans 0.03 10^3/uL (0.0-0.06); Absolute Basophil Count 0.02 10^3/uL (0.0-0.2); Absolute Eosinophil Count 0.11 10^3/uL (0.0-0.7); Absolute Lymphocyte Count 1.58 10^3/uL (1.2-3.4); Absolute Monocyte Count 0.58 10^3/uL (0.1-0.8); Absolute Neutrophil Count 5.45 10^3/uL (1.2-6.7); Basophils % 0.3; Eosinophils % 1.4; HCT 35.4 % (36.0-46.0); HGB 11.9 g/dL (11.2-15.7); Immature Grans % 0.4; Lymphocytes % 20.3; MCH 32.1 pg (27.0-33.0); MCHC 33.6 % (32.0-36.0); MCV 95 fL (80-95); MPV 9.7 fL (8.0-11.0); Monocytes % 7.5; Neutrophils % 70.1; Platelet Count 302 10^3/uL (130-400); RBC 3.71 10^6/uL (3.93-5.22); RDW 12.3 % (11.7-14.6); RDW-SD 43.2 fL; WBC 7.77 10^3/uL (4.4-10.8)
[2024-02-13 13:15] LABS: Albumin 3.8 g/dL (3.4-5.0); BUN 36 mg/dL (7-18); CREATININE 2.1 mg/dL (0.55-1.02); Calcium 9.3 mg/dL (8.5-10.1); Chloride 103 mmol/L (98-107); Estimated GFR 23.09 (mL/min/1.73m2); Glucose 120 mg/dL (74-106); PHOSPHORUS 3.7 mg/dL (2.6-4.7); Potassium 4.1 mmol/L (3.5-5.1); Sodium 143 mmol/L (136-145); Uric Acid 7.9 mg/dL (2.6-6.0)
[2024-02-13 13:56] LABS: COMMENT (LAB VIEW ONLY) 130.46 mg/dL; PROTEIN 54.7 mg/dL; Prot/Crea Ur Ratio 0.41
[2024-02-13 22:34] LABS: Parathyroid Hormone,Intact 139 pg/mL (19-88)
== END 2024-02-13 01:15 | disposition home or self-care (01) ==
LOC: LBO 01:14
PROVIDERS: PCP Nurse Practitioner Family; Visit Provider Internal Medicine Nephrology
DX: N18.4 Chronic kidney disease, stage 4 (severe) (principal)
CPT/HCPCS: 36415; 80048; 82040; 82565; 83970; 84100; 84156; 84550; 85025

== ENCOUNTER → 2024-03-11 13:43 | Outpatient (BNVA) | payer MEDICARE, SELFPAY | PROVIDERS: PCP Nurse Practitioner Family; Visit Provider Internal Medicine Cardiovascular Disease | DX: I48.0 Paroxysmal atrial fibrillation (principal); N18.4 Chronic kidney disease, stage 4 (severe); R06.09 Other forms of dyspnea | CPT/HCPCS: 99213 ==

== ENCOUNTER 2024-03-17 10:57 | Outpatient (REF) | payer MEDICARE, SELFPAY ==
[2024-03-17 12:40] LABS: Bilirubin Negative (Negative); Blood Negative (Negative); Clarity Clear (Clear); Glucose Negative (Negative); Ketones Negative (Negative); Leukocyte Esterase Trace (Negative); Nitrite Negative (Negative); Urobilinogen 0.2 mg/dL (Up to 0.2); pH 5.5 (5-8)
[2024-03-17 14:40] LABS: Epithelial Cells Moderate HPF (Negative); RBC Negative HPF (0-2)
[2024-03-17 14:41] LABS: Bacteria Rare HPF (Negative); Crystals Negative HPF (Negative); Mucus Negative (Negative); Other Cells Few Renal (Negative)
[2024-03-17 14:42] LABS: C & S Indicated? No/Sq. Contamination; Casts 0-2 Hyaline LPF (Negative)
== END 2024-03-17 10:58 | disposition home or self-care (01) ==
LOC: LBN 10:57
PROVIDERS: PCP Nurse Practitioner Family; Visit Provider Nurse Practitioner Family
DX: N39.0 Urinary tract infection, site not specified (principal)
CPT/HCPCS: 81003; 81015

== ENCOUNTER 2024-04-10 12:51 | Outpatient (REF) | payer MEDICARE, SELFPAY ==
[2024-04-11 20:20] LABS: Campylobacter PCR Negative (Negative); Salmonella PCR Negative (Negative); Shiga Toxin PCR Negative (Negative); Shigella/Enteroinvasive Ecoli Negative (Negative)
[2024-04-13 14:30] LABS: Helicobacter pylori Ag, Feces Negative (Negative)
== END 2024-04-10 12:52 | disposition home or self-care (01) ==
LOC: LBN 12:51
PROVIDERS: PCP Nurse Practitioner Family; Visit Provider Nurse Practitioner Family
DX: R19.7 Diarrhea, unspecified (principal)
CPT/HCPCS: 87329; 87338; 87505; 83630

== ENCOUNTER 2024-04-26 03:28 | Outpatient (CLI) | payer MEDICARE, SELFPAY ==
[2024-04-27 09:48] LABS: HBs Antibody, Quant <3.1 mIU/mL (See Note); Hep B Surface Ab Negative (See Note); Hepatitis B Core Antibody Negative (Negative); Hepatitis B Surface Antigen Negative (Negative)
[2024-04-27 10:48] LABS: Hep A Total Ab w Rflx IgM Negative (Negative)
[2024-04-27 11:17] LABS: IgA 279 mg/dL (85-499); Interpretation (See Note); Tissue Transglutaminase IgA <4.0 CU (<20.0)
== END 2024-04-26 03:29 | disposition home or self-care (01) ==
LOC: LBO 03:28
PROVIDERS: PCP Nurse Practitioner Family; Visit Provider Nurse Practitioner Family
DX: R11.2 Nausea with vomiting, unspecified (principal); R19.7 Diarrhea, unspecified; Z11.59 Encounter for screening for other viral diseases
CPT/HCPCS: 36415; 82784; 83516; 86704; 86706; 86709; 87340

== ENCOUNTER → 2024-04-28 00:15 | Outpatient (CLI) | payer MEDICARE, SELFPAY ==
--- NOTE | 2024-04-28 07:15 | DI.US_ITS ---
Exam(s) US THYROID EXAM: US THYROID CLINICAL HISTORY: hx of thyroid nodules,NONTOXIC MULTINODULAR GOITER,E04.2. TECHNIQUE: Ultrasound thyroid performed using standard protocol. US THYROID ULTRASOUND from 02/12/2010 US RENAL ULTRASOUND from 08/20/2011 CR XR CHEST 2V PA LATERAL from 11/05/2023 FINDINGS: ISTHMUS: 4 mm RIGHT LOBE: Size: 4.6 x 1.5 x 1.5 cm Echogenicity: Heterogeneous. Vascularity: Normal. Nodules: 0.71 centimeter solid nodule lower pole no follow-up recommended. 1.1 x 0.7 x 0.7 centimete r solid isoechoic nodule mid right lobe, TR 3, no follow-up recommended. LEFT LOBE: Size: 4.6 x 1.4 x 1.9 cm Echogenicity: Heterogeneous. Vascularity: Normal. Nodules: Nodule mid left lobe 1.2 x 1.1 x 1.2 cm spongiform appearance. Smaller nodule lower pole me asuring 1.0 x 0.8 x 0.8 cm, solid, circumscribed hyperechoic no echogenic foci. TR 3. No follow-up recommended. Not significantly changed from prior. OTHER FINDINGS: No adenopathy. IMPRESSION: Small bilateral thyroid nodules. Mildly heterogeneous thyroid gland. No suspicious nodules. DATA REPOSITORY:
== END ==
PROVIDERS: PCP Nurse Practitioner Family; Visit Provider Nurse Practitioner Family
DX: E04.2 Nontoxic multinodular goiter (principal)
CPT/HCPCS: 76536

== ENCOUNTER → 2024-06-08 14:24 | Outpatient (BNVA) | payer MEDICARE, SELFPAY | PROVIDERS: PCP Nurse Practitioner Family; Referring Provider Nurse Practitioner Family; Visit Provider Podiatrist | DX: M79.674 Pain in right toe(s) (principal); M20.41 Other hammer toe(s) (acquired), right foot; G60.9 Hereditary and idiopathic neuropathy, unspecified; I73.9 Peripheral vascular disease, unspecified; I87.2 Venous insufficiency (chronic) (peripheral) | CPT/HCPCS: 99213 ==

== ENCOUNTER 2024-06-24 09:55 | Outpatient (RCR) | payer MEDICARE, SELFPAY ==
--- NOTE | 2024-06-24 11:00 | HOLTER_ITS ---
APPROVED REPORT Conclusion This is a 48-hour Holter monitor Predominant rhythm was atrial fibrillation with an average heart rate of 88. Minimum was 69, maximum 129 There were rare premature ventricular contractions There were no pauses greater than 3 seconds, no high-grade AV block Symptoms were reported none of which sounded cardiac and had no correlation to any dysrhythmia
== END 2024-07-19 23:59 | disposition home or self-care (01) ==
LOC: CARDOPNVT 09:55
PROVIDERS: PCP Nurse Practitioner Family; Visit Provider Internal Medicine Cardiovascular Disease
DX: I48.0 Paroxysmal atrial fibrillation (principal)
CPT/HCPCS: 93227; 93225; 93226

== ENCOUNTER 2024-07-29 16:22 | Outpatient (CLI) | payer MEDICARE, SELFPAY ==
[2024-07-29 15:47] LABS: Abs Immature Grans 0.02 10^3/uL (0.0-0.06); Absolute Basophil Count 0.03 10^3/uL (0.0-0.2); Absolute Eosinophil Count 0.19 10^3/uL (0.0-0.7); Absolute Lymphocyte Count 1.83 10^3/uL (1.2-3.4); Absolute Monocyte Count 0.67 10^3/uL (0.1-0.8); Absolute Neutrophil Count 5.44 10^3/uL (1.2-6.7); Basophils % 0.4 %; Eosinophils % 2.3 %; HCT 37.8 % (36.0-46.0); HGB 12.1 g/dL (11.2-15.7); Immature Grans % 0.2 %; Lymphocytes % 22.4 %; MCH 31.8 pg (27.0-33.0); MCV 99 fL (80-95); MPV 9.5 fL (8.0-11.0); Monocytes % 8.2 %; Neutrophils % 66.5 %; Platelet Count 332 10^3/uL (130-400); RBC 3.81 10^6/uL (3.93-5.22); RDW-SD 43.7 fL; WBC 8.18 10^3/uL (4.4-10.8)
[2024-07-29 17:24] LABS: Albumin 3.9 g/dL (3.4-5.0); Anion Gap 13.4 mmol/L (3-11); BUN 47 mg/dL (7-18); CO2 25.6 mmol/L (21.0-32.0); CREATININE 2.5 mg/dL (0.55-1.02); Chloride 104 mmol/L (98-107); Estimated GFR 18.61 (mL/min/1.73m2); Glucose 120 mg/dL (74-106); PHOSPHORUS 3.9 mg/dL (2.6-4.7); Potassium 4.4 mmol/L (3.5-5.1); Sodium 143 mmol/L (136-145)
[2024-07-29 18:36] LABS: Vitamin D 25 Total 32.2 ng/mL (30-100)
[2024-07-29 23:06] LABS: Parathyroid Hormone,Intact 227 pg/mL (19-88)
== END 2024-07-29 16:23 | disposition home or self-care (01) ==
LOC: LBO 16:22
PROVIDERS: PCP Nurse Practitioner Family; Visit Provider Internal Medicine Nephrology
DX: N18.4 Chronic kidney disease, stage 4 (severe) (principal); E83.52 Hypercalcemia
CPT/HCPCS: 36415; 80048; 82306; 82040; 83970; 84100; 84550; 85025

== ENCOUNTER → 2024-09-10 12:39 | Outpatient (BNVA) | payer MEDICARE, SELFPAY | PROVIDERS: PCP Nurse Practitioner Family; Visit Provider Internal Medicine Cardiovascular Disease | DX: I48.0 Paroxysmal atrial fibrillation (principal) | CPT/HCPCS: 99213 ==

== ENCOUNTER → 2024-10-05 13:35 | Outpatient (BNVA) | payer MEDICARE, SELFPAY | PROVIDERS: PCP Nurse Practitioner Family; Referring Provider Nurse Practitioner Family; Visit Provider Podiatrist | DX: M20.41 Other hammer toe(s) (acquired), right foot (principal); G60.9 Hereditary and idiopathic neuropathy, unspecified; I73.89 Other specified peripheral vascular diseases; I87.2 Venous insufficiency (chronic) (peripheral); N18.4 Chronic kidney disease, stage 4 (severe); R09.89 Other specified symptoms and signs involving the circulatory and respiratory systems; R60.0 Localized edema; R20.8 Other disturbances of skin sensation; L53.8 Other specified erythematous conditions; B35.1 Tinea unguium; I50.32 Chronic diastolic (congestive) heart failure; I70.223 Atherosclerosis of native arteries of extremities with rest pain, bilateral legs; R25.2 Cramp and spasm | CPT/HCPCS: 11719; 11720 ==

== ENCOUNTER 2024-10-21 11:29 | Observation (INO) | payer MEDICARE, SELFPAY ==
[2024-10-21] VITALS (50 sets, daily range): BP systolic 164–220; BP diastolic 81–156; PULSE 69–135; RESP 10–28; TEMP 36.3–37.2; O2SAT 88–99
--- NOTE | 2024-10-21 11:30 | RT.EKG_ITS ---
APPROVED REPORT Exam: Resting ECG Reason for Exam: SOB Patient Location: E HR:118 bpm ECG Measurements Heart Rate 118 AXIS DC [id number] P [id number] QRSd 113 QRS -19 QT 343 T 73 QTc 480 Conclusion Atrial fibrillation...? atrial activity Incomplete left bundle branch block...QRSd>110mS, terminal axis(-90,-1) Consider anterior infarct...Q >30mS in V2-V5
--- NOTE | 2024-10-21 12:00 | DI.RAD_ITS ---
Exam(s) XR CHEST 2V PA LATERAL EXAM: XR CHEST 2V PA LATERAL CLINICAL HISTORY: cough, SOB TECHNIQUE: 2D digital imaging was performed. Two views. COMPARISON: CR XR CHEST 2V PA LATERAL from 11/05/2023 FINDINGS: HEART: Mildly enlarged. Aorta: Not dilated. Calcified. PULMONARY VASCULATURE: Mildly prominent. MEDIASTINUM: Unremarkable. LUNGS: No focal infiltrate. Mildly increased interstitial markings. PLEURAL SPACE: Minimal blunting at the costophrenic angles. No pneumothorax. BONE:Unremarkable for age. SOFT TISSUES: Unremarkable. IMPRESSION: Tiny bilateral pleural effusions, vascular prominence and mildly increased interstitial markings coul d indicate mild CHF. No focal infiltrate. DATA REPOSITORY: RADIATION DOSE DELIVERED:
--- NOTE | 2024-10-21 12:02 | W.ED.GENAD ---
Discharge Plan Disposition Patient Disposition: Admit to [facility] Condition: Improving Discharge Details Chief Complaint: SOB Clinical Impression: Hypertension, Atrial fibrillation, Elevated troponin, CHF (congestive heart failure), Breath shortness Admit Date/Time: 10/21/24 15:20 Admit Provider: Robert Chandra Attending Provider: Robert Chandra Primary Care Provider: Alejandra Irving ED Provider: Kerline Garcia Discharge Data Discharge Date/Time-TO BE ENTERED AT DEPARTURE: 10/21/24 15:53 HPI General Date/Time Provider Initiated Documentation: 10/21/24 11:31. Limitations to Documentation: no limitations. Information obtained by: patient, RN notes reviewed and old records reviewed. History of Present Illness 84 year old F presents to the emergency department with the chief complaint of SOB, wheezing, LE edema, fatigue, difficulty swallowing medications, described as moderate, Quality is described as other (denies pain at this time), Patient started experiencing this month(s) and it has been constant. Immobilization improves symptom(s), Movement worsens symptoms . Patient notes cough; denies chest pain, fever/chills, headaches, loss of appetite, nausea/vomiting and rash. Related Data Home Medications ?Medication ?Instructions ?Recorded ?Confirmed acetaminophen 500 mg tablet 500 mg PO Q6H PRN #90 tabs 07/04/21 10/21/24 (Tylenol Extra Strength) nitroglycerin 0.4 mg sublingual 0.4 mg sublingual Q5-15M PRN 08/15/21 10/21/24 tablet docusate calcium 240 mg capsule 240 mg PO BID 03/31/23 10/21/24 milnacipran 50 mg tablet (Savella) 50 mg PO BID 03/31/23 10/21/24 tramadol 50 mg tablet (Ultram) 50 mg PO BID PRN 06/09/23 10/21/24 calcitriol 0.25 mcg capsule 0.25 mcg PO Q OTHER DAY 06/13/23 10/21/24 marce root extract 15 mg chewable 15 mg PO .PO 10/22/23 10/21/24 tablet polyethylene glycol 3350 17 17 g PO DAILY PRN 10/22/23 10/21/24 gram/dose oral powder (Miralax) losartan 50 mg tablet 50 mg PO BID 01/07/24 10/21/24 apixaban 2.5 mg tablet (Eliquis) 2.5 mg PO BID #180 tabs 02/09/24 10/21/24 furosemide 40 mg tablet (Lasix) 40 mg PO BID #180 tabs 02/09/24 10/21/24 estradiol 0.01% (0.1 mg/gram) 0.5 g vaginal .Twice a week #42.5 03/17/24 10/21/24 vaginal cream grams melatonin 10 mg capsule 10 mg PO QHS PRN 03/17/24 10/21/24 metoprolol succinate 25 mg 25 mg PO DAILY #90 tabs 05/12/24 10/21/24 tablet,extended release 24 hr metoprolol succinate 50 mg 50 mg PO DAILY #90 tabs 05/12/24 10/21/24 tablet,extended release 24 hr cetirizine 10 mg capsule (Zyrtec) 5 mg PO DAILY PRN 06/10/24 10/21/24 cetirizine 5 mg tablet (Allergy 5 mg PO DAILY PRN 10/21/24 10/21/24 Relief (cetirizine)) Previous Rx's ?Medication ?Instructions ?Recorded acetaminophen 500 mg tablet 500 mg PO Q6H PRN #90 tabs 07/04/21 (Tylenol Extra Strength) apixaban 2.5 mg tablet (Eliquis) 2.5 mg PO BID #180 tabs 02/09/24 furosemide 40 mg tablet (Lasix) 40 mg PO BID #180 tabs 02/09/24 estradiol 0.01% (0.1 mg/gram) 0.5 g vaginal .Twice a week #42.5 03/17/24 vaginal cream grams metoprolol succinate 25 mg 25 mg PO DAILY #90 tabs 05/12/24 tablet,extended release 24 hr metoprolol succinate 50 mg 50 mg PO DAILY #90 tabs 05/12/24 tablet,extended release 24 hr Allergies Allergy/AdvReac Type Severity Reaction Status Date / Time atorvastatin Allergy Severe Other (See Verified 10/21/24 10:58 Comment) Iodinated Contrast Media Allergy Severe Hives Verified 10/21/24 10:58 doxycycline Allergy Intermediate vomiting Verified 10/21/24 10:58 Sulfa (Sulfonamide AdvReac vomiting Verified 10/21/24 10:58 Antibiotics) General Stated Complaint: SOB COURT: 2 Review of Systems Constitutional Constitutional: Reports as per HPI, Denies chills, Denies fever(s), Denies headache(s) and Denies poor appetite Eyes Eyes: Denies change in vision ENT Ears, Nose, Mouth, and Throat: Denies dizziness and Denies headache(s) Cardiovascular Cardiovascular: Reports as per HPI Respiratory Respiratory: Reports as per HPI, Denies chest congestion, Denies pain on inspiration and Denies pain with cough Gastrointestinal Gastrointestinal: Reports as per HPI, Denies abdominal pain, Denies diarrhea, Denies nausea and Denies vomiting Musculoskeletal Musculoskeletal: Reports as per HPI and Denies back pain Integumentary/Breasts Skin/Breast: Reports as per HPI and Denies rash Neurologic Neurologic: Reports as per HPI, Denies dizziness and Denies headache(s) Exam Const General: cooperative, healthy appearing, comfortable, no acute distress and well developed Nutritional Appearance: well nourished and overweight Orientation: alert, awake and oriented x3 HENMT Head: normal to inspection Ears: hearing grossly normal bilaterally Mouth: moist mucous membranes Chest Chest: normal inspection of the chest, normal palpation of entire chest wall and no crepitus Resp Effort & Inspection: normal respiratory effort, able to speak in complete sentences and no respiratory distress Auscultation: no rales, no rhonchi and wheezes scattered wheezes Cardio Rate: regular rate Rhythm: regular rhythm Heart Sounds: S1 normal and S2 normal GI Inspection: normal to inspection, no edema and non-distended Palpation: soft, no hepatosplenomegaly, not firm, no guarding, not rigid and nontender Auscultation: normal bowel sounds Back/Spine/Pelvis Back: no CVA tenderness Thoracic/Lumbar Spine: thoracic and lumbar spine normal to inspection Skin General skin exam: no rashes or lesions noted Trauma: no lacerations or abrasions Neuro General: patient alert, patient awake and patient oriented x3 Cognition: normal cognition Speech: speech normal Extrem General: normal to inspection, capillary refill normal, no calf tenderness and edema Laterality: bilateral (2+ pitting edema) Course Vital Signs Vital signs: Vital Signs Temperature 37.2 C 10/21/24 11:33 Pulse 135 H 10/21/24 11:33 Respiratory Rate 22 10/21/24 11:33 Blood Pressure 212/88 H 10/21/24 11:33 Pulse Oximetry 95 10/21/24 11:33 Temperature 37.2 C 10/21/24 11:33 Temperature Source Temporal Artery Scan 10/21/24 11:33 Pulse 135 H 10/21/24 11:33 Respiratory Rate 22 10/21/24 11:33 Blood Pressure 212/88 H 10/21/24 11:33 Pulse Oximetry 95 10/21/24 11:33 Oxygen Delivery Method Room Air 10/21/24 11:33 Oxygen Flow Rate 0 10/21/24 11:33 Medical Decision Making Patient is a pleasant 84-year-old female presenting today with few different complaints including shortness of breath, cough, congestion, inability to swallow pills, inability to be compliant with her medical care, difficulty with ambulation. Past medical history significant for pancreatitis, A-fib, venous insufficiency, stage IV CKD, SLE, chronic diastolic CHF, SANCHEZ, pulmonary hypertension, GLADYS, hypertension, hyperlipidemia, anemia, GERD, fibromyalgia, obesity. Patient links to the symptoms beginning with a upper endoscopy that she had a [facility], reported by patient to have been in August. Reviewed to the GI note noting that this motility of her esophagus was appreciated and associated with tramadol.. Patient reports that time the EGD she had 2 biopsies taken, unclear on the results. Patient states that since then she has been having nasal congestion, rhinorrhea, dysphagia. She states that when she is trying to take her pills, she can then began vomiting particularly when she is taking this on empty stomach. On exam, patient appears nontoxic. Resting comfortably no acute distress. She remains tachycardic and hypertensive but this is downtrending compared to her initial. She has scant wheezing, will give a nebulizer. She is not in any respiratory distress, no oxygen demand. She does have 2+ pitting edema in her bilateral lower extremities which she reports has been increasing recently. I am primarily concerned about the patient's lower extremity edema, blood pressure and uncontrolled A-fib. These are all likely associated with medication noncompliance. Will begin to diurese the patient as I am concerned this may be driving her shortness of breath made worse with exertion. She is not having any chest pain but I also considered ACS although I do find this less likely. Will also give an antihypertensive that will help with patient's heart rate and A-fib. I am concerned about the patient's medication management at home. Will assess like she is able to swallow, she can have difficulty with this with medications and to find some to cause GI upset particular when taken on empty stomach. Patient may need to transition to liquid medications or medications that may be crushed to be able to be taken easier. I had Labs reviewed. No leukocytosis. Patient is anemic with a hemoglobin of 9.8 patient has been within normal limits recently but does have a history of anemia. Platelets are normal. CMP significant for a creatinine of 1.8 which appears to be baseline for the patient. Here TSH is within normal limits. On review, patient's thyroid has always been within normal limits however, her PTH was elevated despite normal calcium. Patient's troponin is elevated at 78. However, patient does appear to always had elevated troponin, this may be associated with her chronic kidney disease. She is not endorsing any type of chest pain, patient is anticoagulated. Will ensure that she is taking these medications. Her BNP is quite high at 5526 which is higher than patient's been in the past. This is likely driving because of her fatigue and shortness of breath, she did receive 40 mg IV Lasix and does seem to be diuresing well. Her uncontrolled A-fib with RVR, hypertension as well as CKD is likely with contributing to her elevated troponin is more likely to be a type II elevation rather than a type I. Patient did ambulate to commode. Initially did quite well but easily became winded with O2 dropping into the high 80s. Patient I discussed admission which she is agreeable to. Questioning formal heparinization of the patient versus continuing her on her baseline apixaban so we will hold off until repeat troponin which is due shortly prior to beginning this. BP initially responded quite well to IV metoprolol, will give her dosing of p.o. metoprolol. Repeat troponin is 82, fairly flat compared to the initial again, primarily concern for type II elevation. Will give Eliquis. I did speak with hospitalist regarding admission, he agrees to admission and agrees with the choice of continuing patient on home apixaban. CXR reviewed by radiologist: IMPRESSION: Tiny bilateral pleural effusions, vascular prominence and mildly increased interstitial markings could indicate mild CHF. No focal infiltrate Discussed disposition with the patient, she agrees to admission with continued diuresis and management. consulted with hospitalist who agrees to admission. This documentation was generated using [employer]eb[employer] system, please disregard any oddities of phrase or misspellings. Quality:SDOH Health Related Social Needs: Health related social needs housing instability, housed, with risk of homelessness (Z59.811) PFSH All Active Problems (Updated 10/21/24 @ 17:26 by KANCHAN Xiao) Breath shortness (Acute) CHF (congestive heart failure) (Chronic) Discharge planning issues (Acute) Chronic kidney disease (CKD) stage G4/A3, severely decreased glomerular filtration rate (GFR) between 15-29 mL/min/1.73 square meter and albuminuria creatinine ratio greater than 300 mg/g (Acute) Elevated troponin (Acute) Atrial fibrillation (Chronic) Acute on chronic heart failure with preserved ejection fraction (HFpEF) (Acute) Atrial fibrillation with RVR (Acute) Venous insufficiency (Acute) Nausea vomiting and diarrhea (Acute) Recurrent UTI (Acute) CKD (chronic kidney disease) stage 4, GFR 15-29 ml/min (Acute) Systemic lupus erythematosus (Chronic) Chronic diastolic CHF (congestive heart failure) (Chronic) Atrial fibrillation (Chronic) Chronic respiratory failure with hypoxia (Chronic) Dyspnea on exertion (Chronic) Followed by [facility] Pulmonology. Normal PFTs. 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) Obesity (BMI 30-39.9) (Chronic) Medical History Pancreatitis Basal cell carcinoma of skin Surgical History Status post amputation of toe of left foot Left second toe for hammer toe S/P small bowel resection (~2013) Sigmoid colectomy with diverting loop ileostomy then eventual ileostomy reversal for diverticulitis S/P repair of ventral hernia (06/25/23) History of revision of total replacement of left knee joint (07/05/21) History of arthroplasty of left knee History of total right knee replacement (TKR) Status post total right knee replacement (~1997) Status post total left knee replacement (~1999) Hx of bilateral cataract extraction Hx of knee surgery S/p bilateral carpal tunnel release History of surgical removal of ganglion cyst both wrists History of hysterectomy Hx of section History of tonsillectomy and adenoidectomy Family History Mother Heart disease Hypertension Father , [place] in 40s Heart disease Myocardial infarction Brother Prostate cancer Heart disease Son Type 1 diabetes mellitus Son , at No problems noted. Daughter Depression Alcohol use disorder Substance use disorder Hemochromatosis Maternal Grandfather No problems noted. Maternal Grandmother No problems noted. Paternal Grandfather No problems noted. Paternal Grandmother No problems noted. Social History Smoking/Tobacco Use Status: Former Tobacco Use Quit Date: 10/20/89 Pack-years: 40 Smoking risk assessment performed?: Yes Alcohol Intake: current Alcohol Intake frequency: a few times a month Drug use: Never Substance use type: does not use Caregiver/Support person: No Household members: none Housing: house Communication Needs: Hard of Hearing and Corrective Lenses Education Level: high school Do you need help understanding health information?: Always Current gender identity: female How often do you talk on the phone with friends or family?: three or more times per week How often do you get together with friends or relatives?: three or more times per week Panel score (0-1 are the most socially isolated patients): 1 What type of physical activity do you participate in: walking and sedentary lifestyle Duration: < 15 minutes/day Special marci needs: No Seatbelt use: always Do you feel safe at home: Yes Additional Social history: lives alone-son and live next door and will be checking on patient post op
[2024-10-21 12:15] LABS: Abs Immature Grans 0.03 10^3/uL (0.0-0.06); Absolute Basophil Count 0.03 10^3/uL (0.0-0.2); Absolute Lymphocyte Count 0.96 10^3/uL (1.2-3.4); Absolute Monocyte Count 0.76 10^3/uL (0.1-0.8); Absolute Neutrophil Count 6.38 10^3/uL (1.2-6.7); Basophils % 0.4 %; Eosinophils % 1.2 %; HCT 30.1 % (36.0-46.0); HGB 9.8 g/dL (11.2-15.7); Immature Grans % 0.4 %; Lymphocytes % 11.6 %; MCH 31.6 pg (27.0-33.0); MCHC 32.6 % (32.0-36.0); MCV 97 fL (80-95); MPV 9.4 fL (8.0-11.0); Monocytes % 9.2 %; Neutrophils % 77.2 %; Platelet Count 303 10^3/uL (130-400); RDW 12.3 % (11.7-14.6); RDW-SD 43.8 fL; WBC 8.26 10^3/uL (4.4-10.8)
[2024-10-21 12:39] LABS: ALT 16 U/L (14-59); AST 21 U/L (15-37); Albumin 3.5 g/dL (3.4-5.0); Alkaline Phosphatase 93 U/L (46-116); Anion Gap 10.8 mmol/L (3-11); BUN 24 mg/dL (7-18); Bilirubin, Total 0.85 mg/dL (0.2-1.0); CO2 24.2 mmol/L (21.0-32.0); CREATININE 1.8 mg/dL (0.55-1.02); Calcium 9.6 mg/dL (8.5-10.1); Chloride 108 mmol/L (98-107); Estimated GFR 27.61 (mL/min/1.73m2); Glucose 124 mg/dL (74-106); Magnesium 2.2 mg/dL (1.8-2.4); Potassium 4.2 mmol/L (3.5-5.1); Sodium 143 mmol/L (136-145); Total Protein 7.1 g/dL (6.4-8.2)
[2024-10-21] MEDS: Furosemide 40 MG/4 ML VIAL IVP (12:39)
[2024-10-21] MEDS: Metoprolol 5 MG/5 ML VIAL IVP (12:39)
[2024-10-21] MEDS: Albuterol/Ipratropium 3 ML UPD VIAL UPD (12:39)
[2024-10-21 12:41] LABS: Troponin I 78 ng/L (<or=51)
[2024-10-21 12:47] LABS: NT-proBNP 5526 pg/mL (<300)
[2024-10-21 13:20] LABS: Bilirubin Negative (Negative); Blood Negative (Negative); Clarity Sl Cloudy (Clear); Glucose Negative (Negative); Ketones Negative (Negative); Leukocyte Esterase Trace (Negative); Nitrite Positive (Negative); Specific Gravity 1.015 (1.005-1.025); Urobilinogen 0.2 mg/dL (Up to 0.2); pH 5.5 (5-8)
[2024-10-21 13:26] LABS: Epithelial Cells Few HPF (Negative); RBC 0-2 HPF (0-2); WBC 20-50 HPF (0-5)
[2024-10-21 13:27] LABS: Bacteria Many HPF (Negative); C & S Indicated? Yes; Casts Negative LPF (Negative); Crystals Negative HPF (Negative); Mucus Negative (Negative)
[2024-10-21] MEDS: Aspirin 81 MG CHEW 324 MG CH (13:34)
[2024-10-21] MEDS: Metoprolol CR 50 MG TABCR PO (13:34)
[2024-10-21 13:59] LABS: Troponin I 82 ng/L (<or=51)
[2024-10-21] MEDS: Apixaban 2.5 MG TAB PO ×2 (14:23→20:48)
--- NOTE | 2024-10-21 15:21 | W.PM.HP.N ---
Date of service: 10/21/24 Time of Service: 15:21 Assessment and Plan Assessment and plan (1) Acute on chronic heart failure with preserved ejection fraction (HFpEF): Status: Acute Assessment and plan: Received IV Lasix in the emergency department Continue IV diuresis BID, watching electrolytes and kidney function closely Intake and output, daily weights Update echocardiogram (2) Elevated troponin: Status: Acute Assessment and plan: Have remained flat with no ischemic EKG changes No further surveillance needed at this time (3) Chronic kidney disease (CKD) stage G4/A3, severely decreased glomerular filtration rate (GFR) between 15-29 mL/min/1.73 square meter and albuminuria creatinine ratio greater than 300 mg/g: Status: Acute Assessment and plan: Creatinine is below baseline of 2.2-2.5 at 1.8 Avoid nephrotoxic drugs renally dose as needed (4) Peripheral vascular disease, unspecified: Status: Chronic Assessment and plan: - awaiting appointment with vascular. no active issues chronic neuropathy at baseline avoid andrzej hose (5) Gastroesophageal reflux: Status: Chronic Assessment and plan: - Continue home regimen (6) Atrial fibrillation: Status: Chronic Assessment and plan: -rate better controlled after given metoprolol in ED resume home meds continue apixaban (7) Discharge planning issues: Status: Acute Assessment and plan: DVT prophylaxis- is anticoagulated on apixaban which has been resumed, avoid andrzej hose in setting of PAD Case management for discharge planning Physical therapy for discharge recommendations Case discussed with Dr. Chandra History of Present Illness History of Present Illness Chief Complaint: shortness of breath Narrative: This is an 84-year-old female patient significant past medical history for atrial fibrillation stage IV chronic kidney disease diastolic heart failure, pulmonary hypertension, obstructive sleep apnea, pancreatitis who presented to the emergency with complaints of shortness of breath cough, and difficulty ambulation. She states her symptoms started prior to the holidays with shortness of breath. She states that she was unable to take her usual home medications because when she gets very short of breath this causes nausea and she did not want to further complicate her symptoms. She states that she did not alert anyone because it was the holidays. She went to go see her primary care provider today who did refer her to the emergency department. Her workup in the emergency department was most concerning for congestive heart failure. She did receive IV Lasix for which she responded well to. Her labs also showed elevated troponin at 80 but no ischemic EKG changes and repeat troponins have remained flat. She has had no reports of chest pain. She she reports improvement in her symptoms since having received the Lasix. hospitalist services was contacted for admission request for further management and evaluation Review of Systems All systems reviewed & are unremarkable except as noted in HPI and below PFSH All Active Problems (Updated 10/21/24 @ 16:19 by Bebe Cline NP) Discharge planning issues (Acute) Chronic kidney disease (CKD) stage G4/A3, severely decreased glomerular filtration rate (GFR) between 15-29 mL/min/1.73 square meter and albuminuria creatinine ratio greater than 300 mg/g (Acute) Elevated troponin (Acute) Atrial fibrillation (Chronic) Acute on chronic heart failure with preserved ejection fraction (HFpEF) (Acute) Atrial fibrillation with RVR (Acute) Venous insufficiency (Acute) Nausea vomiting and diarrhea (Acute) Recurrent UTI (Acute) CKD (chronic kidney disease) stage 4, GFR 15-29 ml/min (Acute) Systemic lupus erythematosus (Chronic) Chronic diastolic CHF (congestive heart failure) (Chronic) Atrial fibrillation (Chronic) Chronic respiratory failure with hypoxia (Chronic) Dyspnea on exertion (Chronic) [place] [facility] Normal PFTs. 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) Obesity (BMI 30-39.9) (Chronic) Medical History Pancreatitis Basal cell carcinoma of skin Surgical History Status post amputation of toe of left foot Left second toe for hammer toe S/P small bowel resection (~2013) Sigmoid colectomy with diverting loop ileostomy then eventual ileostomy reversal for diverticulitis S/P repair of ventral hernia (06/25/23) History of revision of total replacement of left knee joint (07/05/21) History of arthroplasty of left knee History of total right knee replacement (TKR) Status post total right knee replacement (~1997) Status post total left knee replacement (~1999) Hx of bilateral cataract extraction Hx of knee surgery S/p bilateral carpal tunnel release History of surgical removal of ganglion cyst both wrists History of hysterectomy Hx of section History of tonsillectomy and adenoidectomy Family History Mother Heart disease Hypertension Father , [place] in 40s Heart disease Myocardial infarction Brother Prostate cancer Heart disease Son Type 1 diabetes mellitus Son , at No problems noted. Daughter Depression Alcohol use disorder Substance use disorder Hemochromatosis Maternal Grandfather No problems noted. Maternal Grandmother No problems noted. Paternal Grandfather No problems noted. Paternal Grandmother No problems noted. Social History Smoking/Tobacco Use Status: Former Tobacco Use Quit Date: 10/20/89 Pack-years: 40 Smoking risk assessment performed?: Yes Alcohol Intake: current Alcohol Intake frequency: a few times a month Drug use: Never Substance use type: does not use Caregiver/Support person: No Household members: none Housing: apartment Communication Needs: Hard of Hearing and Corrective Lenses Education Level: high school Do you need help understanding health information?: Always Current gender identity: female How often do you talk on the phone with friends or family?: three or more times per week How often do you get together with friends or relatives?: three or more times per week Panel score (0-1 are the most socially isolated patients): 1 What type of physical activity do you participate in: walking and sedentary lifestyle Duration: < 15 minutes/day Special marci needs: No Seatbelt use: always Do you feel safe at home: Yes Additional Social history: lives alone-son and live next door and will be checking on patient post op Meds Allergies and Home Medications Allergies Allergy/AdvReac Type Severity Reaction Status Date / Time atorvastatin Allergy Severe Other (See Verified 10/21/24 10:58 Comment) Iodinated Contrast Media Allergy Severe Hives Verified 10/21/24 10:58 doxycycline Allergy Intermediate vomiting Verified 10/21/24 10:58 Sulfa (Sulfonamide AdvReac vomiting Verified 10/21/24 10:58 Antibiotics) Home Medications ?Medication ?Instructions ?Recorded ?Confirmed ?Type acetaminophen 500 mg tablet 500 mg PO Q6H PRN #90 tabs 07/04/21 10/21/24 Rx (Tylenol Extra Strength) nitroglycerin 0.4 mg sublingual 0.4 mg sublingual Q5-15M PRN 08/15/21 10/21/24 History tablet docusate calcium 240 mg capsule 240 mg PO BID 03/31/23 10/21/24 History milnacipran 50 mg tablet (Savella) 50 mg PO BID 03/31/23 10/21/24 History tramadol 50 mg tablet (Ultram) 50 mg PO BID PRN 06/09/23 10/21/24 History calcitriol 0.25 mcg capsule 0.25 mcg PO Q OTHER DAY 06/13/23 10/21/24 History marce root extract 15 mg chewable 15 mg PO .PO 10/22/23 10/21/24 History tablet polyethylene glycol 3350 17 17 g PO DAILY PRN 10/22/23 10/21/24 History gram/dose oral powder (Miralax) losartan 50 mg tablet 50 mg PO BID 01/07/24 10/21/24 History apixaban 2.5 mg tablet (Eliquis) 2.5 mg PO BID #180 tabs 02/09/24 10/21/24 Rx furosemide 40 mg tablet (Lasix) 40 mg PO BID #180 tabs 02/09/24 10/21/24 Rx estradiol 0.01% (0.1 mg/gram) 0.5 g vaginal .Twice a week #42.5 03/17/24 10/21/24 Rx vaginal cream grams melatonin 10 mg capsule 10 mg PO QHS PRN 03/17/24 10/21/24 History metoprolol succinate 25 mg 25 mg PO DAILY #90 tabs 05/12/24 10/21/24 Rx tablet,extended release 24 hr metoprolol succinate 50 mg 50 mg PO DAILY #90 tabs 05/12/24 10/21/24 Rx tablet,extended release 24 hr cetirizine 10 mg capsule (Zyrtec) 5 mg PO DAILY PRN 06/10/24 10/21/24 History cetirizine 5 mg tablet (Allergy 5 mg PO DAILY PRN 10/21/24 10/21/24 History Relief (cetirizine)) Exam Const General: cooperative, comfortable and no acute distress Nutritional Appearance: obese Orientation: alert, awake and oriented x3 [facility] Head: normal to inspection, normocephalic and atraumatic Face and sinus: normal facial exam Eyes General: appearance normal, both eyes and all related structures Pupils: PERRL EOM: EOM intact bilaterally Neck Neck: normal visual inspection Chest Chest: normal inspection of the chest Resp Effort & Inspection: normal respiratory effort Auscultation: clear to auscultation bilaterally and rales (fine, bases bilaterally no wheezing) bilaterally Cardio Rate: regular rate GI Inspection: normal to inspection Palpation: soft and nontender Skin General skin exam: no rashes or lesions noted Neuro General: patient alert, patient awake and patient oriented x3 Cognition: normal cognition Speech: speech normal Extrem General: normal to inspection, full ROM and edema (lower, chronic) Laterality: bilateral Psych Appearance: grossly normal Mental Status: mental status grossly normal Speech and Movement: speech and movement normal Affect: normal affect Results Labs 10/21/24 12:06 10/21/24 12:06 Labs: Laboratory Results - last 24 hr 10/21/24 10/21/24 10/21/24 12:06 12:57 13:29 WBC 8.26 RBC 3.10 L Hgb 9.8 L Hct 30.1 L MCV 97 H MCH 31.6 MCHC 32.6 RDW 12.3 Plt Count 303 MPV 9.4 Immature Gran % 0.4 Neutrophils % 77.2 Lymphocytes % 11.6 Monocytes % 9.2 Eosinophils % 1.2 Basophils % 0.4 Nucleated RBC % 0.0 Absolute Neutrophils 6.38 Absolute Lymphocytes 0.96 L Absolute Monocytes 0.76 Absolute Eosinophils 0.10 Absolute Basophils 0.03 Sodium 143 Potassium 4.2 Chloride 108 H Carbon Dioxide 24.2 Anion Gap 10.8 BUN 24 H Creatinine 1.8 H Est GFR (CKD-EPI 2020) 27.61 Glucose 124 H Calcium 9.6 Magnesium 2.2 Total Bilirubin 0.85 AST 21 ALT 16 Alkaline Phosphatase 93 Troponin I 78 H* 82 H* NT-Pro-B Natriuret Pep 5526 H Total Protein 7.1 Albumin 3.5 TSH 1.10 Urine Color Yellow Urine Clarity Sl Cloudy Urine pH 5.5 Ur Specific Aguilar 1.015 Urine Protein Negative Urine Ketones Negative Urine Blood Negative Urine Nitrite Positive H Urine Bilirubin Negative Urine Urobilinogen 0.2 Ur Leukocyte Esterase Trace H Urine RBC 0-2 Urine WBC 20-50 H Ur Epithelial Cells Few Urine Crystals Negative Urine Bacteria Many Urine Casts Negative Urine Mucus Negative Ur Culture Indicated? Yes Urine Glucose Negative Last Vital Signs Temp 37.2 C 10/21/24 12:14 Pulse 88 10/21/24 14:16 Resp 22 10/21/24 14:20 BP 166/104 H 10/21/24 14:16 Pulse Ox 96 10/21/24 14:20 Time Spent Time spent with Patient: 55-74 minutes Time was spent: preparing to see the patient(eg.review tests), obtaining and/or reviewing separately otained hiistory, ordering medications,tests, procedures, referring, communicating with other health patient care technician instructor, indepentently interpreting results and counseling the patient
--- NOTE | 2024-10-21 15:45 | W.PC.ACHO ---
Registration Status: Primary Language: Preferred Language: ED Information & Data Chief Complaint SOB 10/21/24 12:30 Triage Note started few weeks ago with 10/21/24 11:33 SOB, cough, nasal congestion , has not been able to sleep , x1 weeks ago all symptoms started to increase Medical / Surgical History (Last Reviewed 10/05/24 @ 15:39 by Chandni Gallegos DPM) Pancreatitis Basal cell carcinoma of skin (Last Reviewed 10/05/24 @ 15:39 by Chandni Gallegos DPM) Status post amputation of toe of left foot S/P small bowel resection (~2013) S/P repair of ventral hernia (06/25/23) History of revision of total replacement of left knee joint (07/05/21) History of arthroplasty of left knee Status post total right knee replacement (~1997) Status post total left knee replacement (~1999) History of total right knee replacement (TKR) Hx of bilateral cataract extraction Hx of knee surgery S/p bilateral carpal tunnel release History of surgical removal of ganglion cyst History of hysterectomy Hx of section History of tonsillectomy and adenoidectomy Most Recent Vital Signs Temperature 37.2 C 10/21/24 12:14 Temperature Source Temporal Artery Scan 10/21/24 12:14 Pulse 86 10/21/24 15:31 Pulse 92 H 10/21/24 15:40 Respiratory Rate 19 10/21/24 15:40 Respiratory Effort Short of Breath, Labored 10/21/24 12:14 Respiratory Depth Normal 10/21/24 12:14 Respiratory Pattern Normal 10/21/24 12:14 Blood Pressure 199/100 H 10/21/24 15:31 Blood Pressure Mean 121 10/21/24 15:31 Pulse Oximetry 96 10/21/24 14:46 Oxygen Delivery Method Room Air 10/21/24 12:14 Oxygen Flow Rate 0 10/21/24 12:14 Allergies atorvastatin Allergy (Severe, Verified 10/21/24 10:58) Other (See Comment) Iodinated Contrast Media Allergy (Severe, Verified 10/21/24 10:58) Hives doxycycline Allergy (Intermediate, Verified 10/21/24 10:58) vomiting Sulfa (Sulfonamide Antibiotics) Adverse Reaction (Verified 10/21/24 10:58) vomiting Precautions Isolation Standard precaution 10/21/24 12:12 IV IV Catheter Type [Left Saline Lock Antecubital] IV Catheter Gauge [Left 18 Antecubital] Diagnostics 10/21/24 10/21/24 10/21/24 Range/Units 15:02 13:29 12:57 WBC (4.4-10.8) 10^3/uL RBC (3.93-5.22) 10^6/uL Hgb (11.2-15.7) g/dL Hct (36.0-46.0) % MCV (80-95) fL MCH (27.0-33.0) pg MCHC (32.0-36.0) % RDW (11.7-14.6) % Plt Count (130-400) 10^3/uL MPV (8.0-11.0) fL Immature Gran % % Neutrophils % % Lymphocytes % % Monocytes % % Eosinophils % % Basophils % % Nucleated RBC % (0.0-0.3) % Absolute Neutrophils (1.2-6.7) 10^3/uL Absolute Lymphocytes (1.2-3.4) 10^3/uL Absolute Monocytes (0.1-0.8) 10^3/uL Absolute Eosinophils (0.0-0.7) 10^3/uL Absolute Basophils (0.0-0.2) 10^3/uL Sodium (136-145) mmol/L Potassium (3.5-5.1) mmol/L Chloride (98-107) mmol/L Carbon Dioxide (21.0-32.0) mmol/L Anion Gap (3-11) mmol/L BUN (7-18) mg/dL Creatinine (0.55-1.02) mg/dL Est GFR (CKD-EPI 2020) (mL/min/1.73m2) Glucose (74-106) mg/dL Calcium (8.5-10.1) mg/dL Magnesium (1.8-2.4) mg/dL Total Bilirubin (0.2-1.0) mg/dL AST (15-37) U/L ALT (14-59) U/L Alkaline Phosphatase (46-116) U/L Troponin I Pending 82 H* (<or=51) ng/L NT-Pro-B Natriuret Pep (<300) pg/mL Total Protein (6.4-8.2) g/dL Albumin (3.4-5.0) g/dL TSH (0.36-3.74) uIU/mL Urine Color Yellow (Yellow) Urine Clarity Sl Cloudy (Clear) Urine pH 5.5 (5-8) Ur Specific Regan 1.015 (1.005-1.025) Urine Protein Negative (Neg-Trace) mg/dL Urine Ketones Negative (Negative) mg/dL Urine Blood Negative (Negative) Urine Nitrite Positive H (Negative) Urine Bilirubin Negative (Negative) Urine Urobilinogen 0.2 (Up to 0.2) mg/dL Ur Leukocyte Esterase Trace H (Negative) Urine RBC 0-2 (0-2) HPF Urine WBC 20-50 H (0-5) HPF Ur Epithelial Cells Few (Negative) HPF Urine Crystals Negative (Negative) HPF Urine Bacteria Many (Negative) HPF Urine Casts Negative (Negative) LPF Urine Mucus Negative (Negative) Ur Culture Indicated? Yes Urine Glucose Negative (Negative) mg/dL 10/21/24 Range/Units 12:06 WBC 8.26 (4.4-10.8) 10^3/uL RBC 3.10 L (3.93-5.22) 10^6/uL Hgb 9.8 L (11.2-15.7) g/dL Hct 30.1 L (36.0-46.0) % MCV 97 H (80-95) fL MCH 31.6 (27.0-33.0) pg MCHC 32.6 (32.0-36.0) % RDW 12.3 (11.7-14.6) % Plt Count 303 (130-400) 10^3/uL MPV 9.4 (8.0-11.0) fL Immature Gran % 0.4 % Neutrophils % 77.2 % Lymphocytes % 11.6 % Monocytes % 9.2 % Eosinophils % 1.2 % Basophils % 0.4 % Nucleated RBC % 0.0 (0.0-0.3) % Absolute Neutrophils 6.38 (1.2-6.7) 10^3/uL Absolute Lymphocytes 0.96 L (1.2-3.4) 10^3/uL Absolute Monocytes 0.76 (0.1-0.8) 10^3/uL Absolute Eosinophils 0.10 (0.0-0.7) 10^3/uL Absolute Basophils 0.03 (0.0-0.2) 10^3/uL Sodium 143 (136-145) mmol/L Potassium 4.2 (3.5-5.1) mmol/L Chloride 108 H (98-107) mmol/L Carbon Dioxide 24.2 (21.0-32.0) mmol/L Anion Gap 10.8 (3-11) mmol/L BUN 24 H (7-18) mg/dL Creatinine 1.8 H (0.55-1.02) mg/dL Est GFR (CKD-EPI 2020) 27.61 (mL/min/1.73m2) Glucose 124 H (74-106) mg/dL Calcium 9.6 (8.5-10.1) mg/dL Magnesium 2.2 (1.8-2.4) mg/dL Total Bilirubin 0.85 (0.2-1.0) mg/dL AST 21 (15-37) U/L ALT 16 (14-59) U/L Alkaline Phosphatase 93 (46-116) U/L Troponin I 78 H* (<or=51) ng/L NT-Pro-B Natriuret Pep 5526 H (<300) pg/mL Total Protein 7.1 (6.4-8.2) g/dL Albumin 3.5 (3.4-5.0) g/dL TSH 1.10 (0.36-3.74) uIU/mL Urine Color (Yellow) Urine Clarity (Clear) Urine pH (5-8) Ur Specific Regan (1.005-1.025) Urine Protein (Neg-Trace) mg/dL Urine Ketones (Negative) mg/dL Urine Blood (Negative) Urine Nitrite (Negative) Urine Bilirubin (Negative) Urine Urobilinogen (Up to 0.2) mg/dL Ur Leukocyte Esterase (Negative) Urine RBC (0-2) HPF Urine WBC (0-5) HPF Ur Epithelial Cells (Negative) HPF Urine Crystals (Negative) HPF Urine Bacteria (Negative) HPF Urine Casts (Negative) LPF Urine Mucus (Negative) Ur Culture Indicated? Urine Glucose (Negative) mg/dL 10/21/24 12:57 Urine Culture - Pending Urine - Reflex from Ua Intake and Output - 24 Hour Total 10/21/24 11:29 thru 10/21/24 12:08 Intake Total 10 Balance 10 Weight 96 kg Intake: IV 10 Falls Risk Assessment History of Falls Previous History 10/21/24 12:12 Contributing Factors Impairments 10/21/24 12:12 Ambulatory Aids Uses ambulatory device 10/21/24 12:12 Tubes/Lines W/no contributing factors 10/21/24 12:12 Gait Evaluation W/no contributing factors 10/21/24 12:12 Fall Total Score 53 10/21/24 12:12 Level of Risk High Risk 10/21/24 12:12 v v v v v v v v v Sending and/or Receiving Nurses: Please use comment section below to note any information pertinent to the patient hand-off not included above. Information / Comments: Report received from Bindu at 1544 Report received from:
[2024-10-21 16:45] LABS: Troponin I 80 ng/L (<or=51)
--- NOTE | 2024-10-21 20:43 | NUR.NOTE ---
Nursing Note: Patient family brought in home medication, labelled Savella 50mg tablets. Pharmacy not in house to create label/confirm medication overnight. Per assistant housekeeping manager, two RN verification using pill identifier to confirm medication acceptable for HS administration of first dose. This RN and RN FlorinR. utilized pill identifier, identified tablet with [place] imprinted on side A, 50 imprinted on side B, white and oval shaped. Per pill identifier, medication confirmed as Savella 50mg. HS dose administered per MAR, bulk bottle brought to pharmacy for their verification for further dosing.
[2024-10-21] MEDS: Losartan 50 MG TAB PO (20:47)
[2024-10-22 03:13] VITALS: BP 156/95
[2024-10-22 06:14] LABS: Abs Immature Grans 0.03 10^3/uL (0.0-0.06); Absolute Basophil Count 0.02 10^3/uL (0.0-0.2); Absolute Eosinophil Count 0.15 10^3/uL (0.0-0.7); Absolute Lymphocyte Count 1.39 10^3/uL (1.2-3.4); Absolute Monocyte Count 0.78 10^3/uL (0.1-0.8); Absolute Neutrophil Count 6.35 10^3/uL (1.2-6.7); Basophils % 0.2 %; Eosinophils % 1.7 %; HCT 29.3 % (36.0-46.0); HGB 9.3 g/dL (11.2-15.7); Immature Grans % 0.3 %; Lymphocytes % 15.9 %; MCH 30.9 pg (27.0-33.0); MCHC 31.7 % (32.0-36.0); MCV 97 fL (80-95); MPV 9.5 fL (8.0-11.0); Monocytes % 8.9 %; Platelet Count 281 10^3/uL (130-400); RBC 3.01 10^6/uL (3.93-5.22); RDW 12.3 % (11.7-14.6); RDW-SD 43.7 fL; WBC 8.72 10^3/uL (4.4-10.8)
[2024-10-22 06:20] LABS: Anion Gap 9.8 mmol/L (3-11); BUN 28 mg/dL (7-18); CO2 27.2 mmol/L (21.0-32.0); Calcium 9.1 mg/dL (8.5-10.1); Chloride 106 mmol/L (98-107); Estimated GFR 24.33 (mL/min/1.73m2); Glucose 104 mg/dL (74-106); Potassium 4.2 mmol/L (3.5-5.1); Sodium 143 mmol/L (136-145)
[2024-10-22 07:49] VITALS: BP 179/92; PULSE 78; RESP 18; TEMP 36.6; O2SAT 97
[2024-10-22] MEDS: Metoprolol CR 25 MG TABCR 75 MG PO (07:58)
[2024-10-22] MEDS: Losartan 50 MG TAB PO ×2 (07:58→20:56)
[2024-10-22] MEDS: Apixaban 2.5 MG TAB PO ×2 (07:58→20:56)
[2024-10-22] MEDS: Furosemide 40 MG TAB PO ×2 (08:12→13:04)
--- NOTE | 2024-10-22 08:55 | PDOC.CMIN ---
Date of service: 10/22/24 Time of Service: 08:55 Care Management Initial Assmt Initial Assessment Reason for Hospitalization: CHF Functional Status/Living Situation Patient Presentation: Chandni was sitting up in a chair when CM met with her. She was very pleasant and easily engaged in conversation with CM. Chandni lives in an in-law apartment in her son's home in [place]. Her son, his and 13 year old daughter live in the main house. Chandni has one other child, a daughter, that she has been estranged from for the past 10 years. Chandni is independent with ADLs and uses a cane and walker for ambulation. She does not receive any community services. Chandni was admitted with CHF. She admitted that she waited too long to come to the hospital because of the holidays; she didn't want to inconvenience her family. She informed CM that she is feeling much better today. She was quite tachycardic (afib) yesterday but her heart rate has been in the 80s for most of today. Her oxygen saturation has been in the upper 90s on room air. Chandni talked a lot about her family today. She became weepy several times when talking about loved ones she has lost such as her husbands and her father. She shared that she never cries and is not sure what is bringing this on. She did state that she had a couple of periods last week when she was feeling so ill that she thought she might not make it until morning. She acknowledged that that may have had some effect. Town of Residence: [place] Resides with: Child (in-law apartment in son's home) Significant Other/Family: Local Employment Status: Retired (worked at [employer] for over 20 years) Instrumental Activities of Daily Living (ADLs): Independent Medications Medication Management: No Issues/Barriers identified Physical Functioning/Mobility Assistive Device: cane and walker Advance Directives Advance Directives: Do you have an Advance Directive: Y 06/27/22 14:32 AD On File at [facility]: Y 06/27/22 14:32 Date Asked 10/21/24 10/21/24 11:40 AD Date Reviewed 04/23/24 04/23/24 07:57 COLST On File at [facility] Yes 06/27/22 14:32 COLST Date Scanned 02/17/20 06/27/22 14:32 Code Status Resuscitation Status DNR/DNI Portal Pt does not currently have a portal and education provided: Yes Insurance Coverage/Financial Issues Insurance: [employer] Medicare replacement Care Team Visit Care Team Role Provider Type Alejandra Irving NP Primary Care Provider NURSE PRACTITIONER InPatient Daniel Walter Other Providers OTHER KANCHAN Xiao Emergency Provider PHYSICIANS SQL DATABASE ADMINISTRATOR Robert Chandra MD Admit Provider MD JENSEN STAFF PHYSICIAN Attending Provider Discharge Potential Discharge Needs: PCP F/U Appt Anticipated Barriers to Discharge: None Identified Patient/Family Education Needs: Review discharge instructions, discuss Ask Me Three Transportation: Private vehicle Plan: Anticipate Chandni will be discharged home with new home health services for nursing. She will follow up with her community providers and plan of care and transport with family. CM will follow and continue to assess for discharge needs. Social Determinants of Health Screening Social Determinants of Health last assessed: 12/24/24 Will the Patient Participate in the Screening?: Yes Do you worry about having a steady place to live?: no Problems where you live: no known problems In the past 12 months, have you had to go without electric, gas, oil or water in your home?: no Have you or anyone in your house had to go without enough food to eat?: no Has lack of transportation kept you from medical appointments or from doing things needed for daily living?: no Has anyone in your life made you feel unsafe or unsupported?: no How hard is it for you to pay for the very basics like food, housing, medical care, and heating? Would you say it is:: Not hard at all Do you want help finding or keeping work or a job?: I do not need or want help If for any reason you need help with day-to-day activities such as bathing, preparing meals, shopping, managing finances, etc., do you get the help you need?: I don?t need any help How often do you feel lonely or isolated from those around you?: Never Do you speak a language other than British at home?: No Does the patient want assistance with any of the above?: No PFSH All Active Problems (Updated 11/24/24 @ 12:04 by Cherelle Tirado NP) Nausea and vomiting (Acute) Incomplete bladder emptying (Acute) Impaired instrumental activities of daily living (Acute) ACP (advance care planning) (Acute) Palliative care status (Acute) PAD (peripheral artery disease) (Acute) [facility] Vascular - 11/10/24; Mild RLE arterial dx, Mild L foot arterial dx Chronic heart failure with preserved ejection fraction (Chronic) CKD (chronic kidney disease) stage 4, GFR 15-29 ml/min (Chronic) Atrial fibrillation (Chronic) Dyspnea on exertion (Chronic) Followed by [facility] Pulmonology. Normal PFTs, chest imaging. 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) Diverticulosis of colon (Chronic) 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) Obesity (BMI 30-39.9) (Chronic) Medical History Systemic lupus erythematosus Pancreatitis Basal cell carcinoma of skin Surgical History Status post amputation of toe of left foot Left second toe for hammer toe S/P small bowel resection (~2013) Sigmoid colectomy with diverting loop ileostomy then eventual ileostomy reversal for diverticulitis S/P repair of ventral hernia (06/25/23) History of revision of total replacement of left knee joint (07/05/21) History of arthroplasty of left knee Status post total right knee replacement (~1997) Status post total left knee replacement (~1999) History of total right knee replacement (TKR) Hx of bilateral cataract extraction Hx of knee surgery S/p bilateral carpal tunnel release History of surgical removal of ganglion cyst both wrists History of hysterectomy Hx of section History of tonsillectomy and adenoidectomy Family History Mother Heart disease Hypertension Father , [place] in 40s Heart disease Myocardial infarction Brother Prostate cancer Heart disease Son Type 1 diabetes mellitus Son , at No problems noted. Daughter Depression Alcohol use disorder Substance use disorder Hemochromatosis Maternal Grandfather No problems noted. Maternal Grandmother No problems noted. Paternal Grandfather No problems noted. Paternal Grandmother No problems noted. Social History Smoking/Tobacco Use Status: Former Tobacco Use Quit Date: 10/20/89 Pack-years: 40 Smoking risk assessment performed?: Yes Alcohol Intake: current Alcohol Intake frequency: a few times a month Drug use: Never Substance use type: does not use Caregiver/Support person: No Household members: none Housing: house Communication Needs: Hard of Hearing and Corrective Lenses Education Level: high school Do you need help understanding health information?: Always Current gender identity: female How often do you talk on the phone with friends or family?: three or more times per week How often do you get together with friends or relatives?: three or more times per week Panel score (0-1 are the most socially isolated patients): 1 What type of physical activity do you participate in: walking and sedentary lifestyle Duration: < 15 minutes/day Special marci needs: No Seatbelt use: always Do you feel safe at home: Yes Additional Social history: lives alone-son and live next door and will be checking on patient post op
--- NOTE | 2024-10-22 09:05 | PT.INIE ---
PT Notes Visit Reasons: Heart Failure Physical Therapy Inpatient Initial Evaluation Date: 10/22/2024 Referring Doctor: Bebe Cline NP PT Orders: PT CONSULT: Eval/Treat Precautions: Fall. Standard. Activity as tolerated. Patient Profile/Admitting Diagnosis: Chandni is a 84-year-old female who presented to the ED on 10/21/2024 due to shortness of breath, cough, wheezing, L LE edema, fatigue, difficulty swallowing and ambulation. Patient is admitted for management of acute on chroninc HFpEF, CKD, PVD, and AF with PT referral sent for safe D/C recommendation. PMHX: All Active Problems (Updated 10/21/24 @ 16:19 by Bebe Cline NP) Discharge planning issues (Acute) Chronic kidney disease (CKD) stage G4/A3, severely decreased glomerular filtration rate (GFR) between 15-29 mL/min/1.73 square meter and albuminuria creatinine ratio greater than 300 mg/g (Acute) Elevated troponin (Acute) Atrial fibrillation (Chronic) Acute on chronic heart failure with preserved ejection fraction (HFpEF) (Acute) Atrial fibrillation with RVR (Acute) Venous insufficiency (Acute) Nausea vomiting and diarrhea (Acute) Recurrent UTI (Acute) CKD (chronic kidney disease) stage 4, GFR 15-29 ml/min (Acute) Systemic lupus erythematosus (Chronic) Chronic diastolic CHF (congestive heart failure) (Chronic) Atrial fibrillation (Chronic) Chronic respiratory failure with hypoxia (Chronic) Dyspnea on exertion (Chronic) [place] [facility] [place]. Normal PFTs. 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) Obesity (BMI 30-39.9) (Chronic) Medical History Pancreatitis Basal cell carcinoma of skin Surgical History Status post amputation of toe of left foot Left second toe for hammer toe S/P small bowel resection (~2013) Sigmoid colectomy with diverting loop ileostomy then eventual ileostomy reversal for diverticulitis S/P repair of ventral hernia (06/25/23) History of revision of total replacement of left knee joint (07/05/21) History of arthroplasty of left knee History of total right knee replacement (TKR) Status post total right knee replacement (~1997) Status post total left knee replacement (~1999) Hx of bilateral cataract extraction Hx of knee surgery S/p bilateral carpal tunnel release History of surgical removal of ganglion cyst both wrists History of hysterectomy Hx of section History of tonsillectomy and adenoidectomy Social History/Home Situation: Lives with son and [id number] in a private home with 2 steps to enter with 1 rail. Independent with all mobility ADL performance without AD prior to admission. Equipment Owned/DME: FWW Subjective: Agreeable to PT consult. Patient with 2 episodes of large watery stools during PT session which GROUP UNDERWRITER Brookelyn and housekeeping were called for to assist. Patient has complained of problem with taking in medications as they have caused her to vomit and unable to consistently take them at home. Patient reported being weak and fatigued with the littlest of movement. Tired after first bowel movement but was able to walk back to chair without device. Objective: General Observation: Resting on chair. Dyspneic at rest. No lines. Did not have a big breakfast. Mental Status: Alert and oriented as to person, place, time, and purpose. Able to pay attention, focus, and respond appropriately. Pain: Denies ROM: Right Upper Extremity: Shoulder Flexion WFL. Shoulder abduction WFL. Elbow flexion WFL. Wrist flexion WFL. Functional opening and closing of hand WFL. Left Upper Extremity: Shoulder Flexion WFL. Shoulder abduction WFL. Elbow flexion WFL. Wrist flexion WFL. Functional opening and closing of hand WFL. Right Lower Extremity: Hip flexion WFL. Hip abduction WFL. Knee flexion WFL. Ankle dorsiflexion WFL. Ankle plantarflexion WFL. Left Lower Extremity: Hip flexion WFL. Hip abduction WFL. Knee flexion WFL. Ankle dorsiflexion WFL. Ankle plantarflexion WFL. Strength: Right Upper Extremity: Shoulder flexors 4-/5. Shoulder abductors 4-/5. Elbow flexors 4-/5. Elbow extensors 4-/5. Pattern Scratcher strong. Left Upper Extremity: Shoulder flexors 4-/5. Shoulder abductors 4-/5. Elbow flexors 4-/5. Elbow extensors 4-/5. Pattern Scratcher strong. Right Lower Extremity: Hip flexors 3+/5. Hip abductors 3+/5. Knee flexors 4/5. Knee extensors 3+/5. Ankle dorsiflexors 3+/5. Ankle plantarflexors 4-/5. Left Lower Extremity: Hip flexors 3+/5. Hip abductors 3+/5. Knee flexors 4/5. Knee extensors 3+/5. Ankle dorsiflexors 3+/5. Ankle plantarflexors 4-/5. Bed Mobility/Transfers: Sit to stand supervision without AD Stand to sit supervision without AD Reclining chair to toilet seat chair supervision without AD toilet seat to reclining chair supervision without AD Gait: In room ambulation only due to two episodes of diarrhea and arrival of heart machine maintenance technician. No assistive device needed. Supervision only. Step through gait pattern. Denies headache, chest pain, and dizziness throughout ambulation activity. Balance: Static Sitting: Normal Dynamic Sitting: Normal Static Standing: good Dynamic Standing: Fair Special Tests: Mobility Limitations Standardized Measure [facility] 6 clicks Basic Mobility Inpatient Short Form: Raw Score: 23 [facility] Score: 11% deficit 4-Stage Balance Test: Feet together 10 sceonds Semi-tandem 10 seconds Full tandem <10 sesonds One-legged stance unable Informed Consent/Education: Patient was instructed in purpose of PT consult and plan of care. Agreeable to proceed with established PT POC to achieve personal goals. Assessment: Patient presents with clinical signs and symptoms consistent with current/admitting diagnoses that have resulted to mobility limitations, gait instability, generalized weakness, and overall ADL decline as demonstrated by the following impairment level findings: 1. Decreased strength to B UE/LE major muscle groups 2. Impaired standing balance 3. Impaired activity tolerance 4. Dyspneic at rest Impairments are contributing to the following functional limitations: 1. Impaired dynamic standing balance 2. Increased completion time for mobility ADL performance 3. Increased risk for falls 4. Difficulty with managing steps alone safely Patient is assessed as a 93560 complexity based on the following: History: 84-year-old female with past medical history as indicated above Examination: Demonstrable impairment in strength, balance, and mobility level with underlying impairments and functional limitations as exhibited above as well as deficit score of 11 % utilizing the [facility] Mobility Inpatient Short Form Presentation: Evolving Decision Makin moderate complexity Goals: Goals X1 week 1. Stand-Sit independent without AD 2. Bed-Chair independent without AD 3. Chair-Bed independent without AD 4. Independent gait on level surface with use of FWW for at least 300 feet without report of pain nor dyspnea 5. Independent stair negotiation while holding onto 1 rail for at least 2 steps without report of pain nor dyspnea 6. Independent with home exercise program 7. Gooddynamic standing balance/tolerance Plan of Care/Treatment Plan: 1-2x/day, 7 days/week x 1 week. Plan of care has been reviewed with the AUDIO VIDEO TECH providing the service under Physical Therapy direction. Initiate Physical Therapy intervention for pain management as needed, strengthening, bed mobility, transfers, gait, stairs, balance training, and use of assistive device. DISCHARGE RECOMMENDATIONS: Patient will benefit from home health PT services in order to progress mobility level using least restrictive assistive ambulatory device, assess home safety, identify additional equipment needs, and establish a functional maintenance program that will increase ability of patient to remain at home. TREATMENT CODE/TIME: 71876 x 20 minutes for 1 unit, 54985 x 10 minutes for 1 unit (9:05-9:35). Thank you for the opportunity to participate in the care of this patient. Milana Byrd PT, DPT, CLT [facility] [place], [place]
--- NOTE | 2024-10-22 09:45 | DI.US_ITS ---
APPROVED REPORT EXAM: Comprehensive 2D, Doppler, and color-flow Echocardiogram Patient Location: In-Patient Room/Bed: 209 Marketing Operations Consultant: Natalya Valencia RDCS (AE) Indications: Heart failure, A Fib, SOB Other Information Study Quality: Adequate. Technically limited study due to exam done bedside. Conclusion Mild concentric left ventricular hypertrophy. Ejection fraction is 55 to 60%. No segmental wall mot ion abnormalities are identified. Patient is in atrial fibrillation with [id number] variation Normal right ventricular size and function Both atria are mildly enlarged There are no structural valvular abnormalities Moderate mitral regurgitation Estimated right ventricular systolic pressure is 37 mmHg Wall motion Left Ventricle The left ventricle is normal size. The overall left ventricular systolic function appears normal. Aneta t to beat variation due to arrhythmia throughout exam. Mild concentric left ventricular hypertrophy. Regional wall motion is grossly normal. There is no ventricular septal defect visualized. LVEF is 56% . Right Ventricle The right ventricle is normal size. The right ventricular systolic function is normal Atria The left atrium size is mildly dilated The right atrium is mildly dilated The interatrial septum is i ntact with no evidence for an atrial septal defect. Aortic Valve The aortic valve is normal in structure. Aortic valve is trileaflet. There is no aortic valvular sten osis. No aortic regurgitation is present. Mitral Valve The mitral valve is normal in structure. No evidence of mitral valve stenosis. Moderate mitral regurg itation. Tricuspid Valve The tricuspid valve is normal in structure. There is no tricuspid valve stenosis. Mild tricuspid regu rgitation. The RVSP is 37.2_ mmHg. Pulmonic Valve The pulmonary valve is normal in structure. There is no pulmonic valvular stenosis. Trace pulmonic re gurgitation. Great Vessels The aortic root is normal in size. The ascending aorta is borderline dilated. Aortic arch is not well visualized. IVC is normal in size and collapses >50% with inspiration. Pericardium There is no pericardial effusion. 2D Dimensions IVSD d PLAX 1.10 cm F: 0.6-1.0 Ao Root d 2.85 cm F: 2.7 - 3.3 LVPW d PLAX 1.10 cm F: 0.6 - 1.0 Ao Asc Diam d 3.32 cm F: 2.3 - 3.1 LVID d PLAX 5.01 cm F: 3.8 - 5.2 LVDs 3.54 cm F: 2.2 - 3.5 LV EF Teichholz 56.0 % FS 29.35 % LV EDV (Teich) 118.5 mL LV ESV (Teich) 52.1 mL M-Mode TAPSE 1.46 cm (M/F) >1.7 LA Volume LA Length A4C 6.0 cm LA Length A2C 6.6 cm LA Area A4C s 23.09 cm2 LA Area A2C s 20.63 cm2 LA Vol A4C A-L 75.48 mL LA Vol A2C A-L 54.61 mL LA Vol Biplane A-L 67.4 mL LA Vol/BSA A4C A-L LA Vol/BSA A2C A-L LA Vol/BSA BP A-L 32.9 mL/m2 LA Vol A4C MOD 71.5 mL LA Vol A2C MOD 52.5 mL LA Vol BP MOD 64.1 mL RA Volume RA Area A4C 16.2 cm2 RA ESV A4C (A-L) 41.7mL RA Vol/BSA A4C A-L RA Length A4C 5.4 cm RA ESV A4C (MOD) 40.5mL LV Diastology MV E' medial 0.098 (>0.07 m/s) MV E Vmax 1.16 (0.4-1.3 m/s) MV E/E' MED 11.82 (<14) MV E' lateral 0.125 (>0.1 m/s) MV E/E' LAT 9.28 (<14) MV E' Average 0.111 m/s MV E/E'(average) 10.40 Aortic Valve AoV Vmax 1.45 m/s LVOT Vmax 0.97 m/s AoV Peak Grad 8.4 mmHg LVOT Peak Grad 3.7 mmHg AoV Area (Vmax) 1.90 cm2 LVOT VTI 0.191 m AoV VTI 0.283 m LVOT Mean Grad 2.6 mmHg AoV Mean Toño. 1.03 m/s LVOT SV 54.44 mL AoV Mean Grad 4.8 mmHg LVOT Diam s 1.90 cm AoV Area (VTI) 1.92 cm2 AV Regurg Peak Gr. 8.36 mmHg Velocity Ratio 0.67 Mitral Valve MV DT 175 (160-240 msec) MV Vmax TIPS 1.10 m/s MV Mean Grad 1.8 (<2mmHg) MV VTI 0.217 m Pulmonary Valve PV Vmax 1.09 (0.5-1.5 m/s) RVOT Vmax 0.95 m/s PV Peak Grad 4.8 mmHg RVOT Peak Gr. 3.6 mmHg PV Mean Toño 0.68 m/s RVOT VTI 0.179 m PV Mean Grad 2.1 mmHg RVOT Mean Gr. 1.8 mmHg Tricuspid Valve RA Pressure 3.00 mmHg TR Vmax 2.92 m/s TV S' 0.14 m/s TR Peak Grad 34.1 mmHg RVSP (TR) 37.2 mmHg
--- NOTE | 2024-10-22 09:59 | W.PM.PROGNOT ---
Date of Service Date of service: 10/22/24 Time of Service: 09:59 Assessment and Plan Assessment and plan (1) Acute on chronic heart failure with preserved ejection fraction (HFpEF): Status: Acute Assessment and plan: Received IV Lasix in the emergency department IV diuresis BID transitioned to a higher dose of oral home dose d/t lost IV access- might have to reinsert IV if not effective BMP in AM Cr 2.0 from 1.8 on arrival - has been over 2.0 in the past Continue intake and output, daily weights Echocardiogram completed: (2) Elevated troponin: Status: Acute Assessment and plan: troponin levels: 78 ,82,80 - asymptomatic- flat levels with no ischemic EKG changes No further surveillance needed at this time (3) Chronic kidney disease (CKD) stage G4/A3, severely decreased glomerular filtration rate (GFR) between 15-29 mL/min/1.73 square meter and albuminuria creatinine ratio greater than 300 mg/g: Status: Acute Assessment and plan: Creatinine is below baseline of 2.2-2.5 at 2.0 Avoid nephrotoxic drugs - renal dosing when pertinent (4) Peripheral vascular disease, unspecified: Status: Chronic Assessment and plan: Outpatient f/u with vascular pending no exacerbation at this time - ongoing chronic neuropathy at baseline continue to avoid YESI's hose (5) Gastroesophageal reflux: Status: Chronic Assessment and plan: - No current home regimen -In the setting of vomiting on 10/21/24 and reported intermittent epigastric tenderness will initiate oral PPI- no IV access Nutrition consult (6) Atrial fibrillation: Status: Chronic Assessment and plan: Better rate control s/p metoprolol XL administration in ED- HR today 69-107 Continue home Toprol XL 75 mg PO daily On home dose apixaban (7) On deep vein thrombosis (DVT) prophylaxis: Status: Acute Assessment and plan: Fully anticoagulated on Eliquis (8) Hypertension: Status: Chronic Assessment and plan: On ARB at home dosing BP on admit >190/100 - then as per point 1. (9) Discharge planning issues: Status: Acute Assessment and plan: Care management for discharge planning w recommendation for HH nursing- non compliance to Rx Physical therapy for discharge recommendations- PT Palliative care consult for goal of care discussion Case discussed with Dr. Chandra Subjective Subjective Patient reports: feels better, tolerating liquids well, tolerating a regular diet, voiding w/o difficulty, diarrhea, nausea, vomiting (X1 last night,w intermittent tenderness epigastric region- tolerated BF well ) and shortness of breath (with ambulation ); denies fever Exam Narrative Exam Narrative: Constitutional The patient is in bed comfortable, well groomed without acute distress and has an obese body habitus HENMT: Facial structures with normal appearance Eyes: Well aligned Neck: no JVD Neuro:alert and oriented x3, No neurological focal deficit Chest:Chest is symmetrical and normal appearance Resp: speaks in short sentences, unlabored breathing in bed, clear upper lung bilaterally,minimal upper airway exp. wheezing on deep breathing Cardio: regular rhythm, S1, S2, no murmur, , bilateral radial and dorsalis pedis pulses are positive GI: Abdomen is not distended, soft and non-tender , bowel sounds are present Integumentary: No skin lesions or rash on exposed skin Psych: RASS 0, congruent mood and normal affect. Objective Last Vital Signs Temp 36.6 C 10/22/24 07:49 Pulse 78 10/22/24 07:49 Resp 18 10/22/24 07:49 BP 179/92 H 10/22/24 07:49 Pulse Ox 97 10/22/24 07:49 Laboratory Results - last 24 hr 10/21/24 10/21/24 10/21/24 12:06 12:57 13:29 WBC 8.26 RBC 3.10 L Hgb 9.8 L Hct 30.1 L MCV 97 H MCH 31.6 MCHC 32.6 RDW 12.3 Plt Count 303 MPV 9.4 Immature Gran % 0.4 Neutrophils % 77.2 Lymphocytes % 11.6 Monocytes % 9.2 Eosinophils % 1.2 Basophils % 0.4 Nucleated RBC % 0.0 Absolute Neutrophils 6.38 Absolute Lymphocytes 0.96 L Absolute Monocytes 0.76 Absolute Eosinophils 0.10 Absolute Basophils 0.03 Sodium 143 Potassium 4.2 Chloride 108 H Carbon Dioxide 24.2 Anion Gap 10.8 BUN 24 H Creatinine 1.8 H Est GFR (CKD-EPI 2020) 27.61 Glucose 124 H Calcium 9.6 Magnesium 2.2 Total Bilirubin 0.85 AST 21 ALT 16 Alkaline Phosphatase 93 Troponin I 78 H* 82 H* NT-Pro-B Natriuret Pep 5526 H Total Protein 7.1 Albumin 3.5 TSH 1.10 Urine Color Yellow Urine Clarity Sl Cloudy Urine pH 5.5 Ur Specific [place] 1.015 Urine Protein Negative Urine Ketones Negative Urine Blood Negative Urine Nitrite Positive H Urine Bilirubin Negative Urine Urobilinogen 0.2 Ur Leukocyte Esterase Trace H Urine RBC 0-2 Urine WBC 20-50 H Ur Epithelial Cells Few Urine Crystals Negative Urine Bacteria Many Urine Casts Negative Urine Mucus Negative Ur Culture Indicated? Yes Urine Glucose Negative 10/21/24 10/22/24 15:46 05:55 WBC 8.72 RBC 3.01 L Hgb 9.3 L Hct 29.3 L MCV 97 H MCH 30.9 MCHC 31.7 L RDW 12.3 Plt Count 281 MPV 9.5 Immature Gran % 0.3 Neutrophils % 73.0 Lymphocytes % 15.9 Monocytes % 8.9 Eosinophils % 1.7 Basophils % 0.2 Nucleated RBC % 0.0 Absolute Neutrophils 6.35 Absolute Lymphocytes 1.39 Absolute Monocytes 0.78 Absolute Eosinophils 0.15 Absolute Basophils 0.02 Sodium 143 Potassium 4.2 Chloride 106 Carbon Dioxide 27.2 Anion Gap 9.8 BUN 28 H Creatinine 2.0 H Est GFR (CKD-EPI 2020) 24.33 Glucose 104 Calcium 9.1 Magnesium Total Bilirubin AST ALT Alkaline Phosphatase Troponin I 80 H* NT-Pro-B Natriuret Pep Total Protein Albumin TSH Urine Color Urine Clarity Urine pH Ur Specific [place] Urine Protein Urine Ketones Urine Blood Urine Nitrite Urine Bilirubin Urine Urobilinogen Ur Leukocyte Esterase Urine RBC Urine WBC Ur Epithelial Cells Urine Crystals Urine Bacteria Urine Casts Urine Mucus Ur Culture Indicated? Urine Glucose Time Spent with Patient Time Spent with Patient: >50 minutes Time was spent: preparing to see the patient(eg.review tests), obtaining and/or reviewing separately otained hiistory, ordering medications,tests, procedures, referring, communicating with other health career technology teacher, indepentently interpreting results, counseling the patient and care coordination
--- NOTE | 2024-10-22 14:51 | PTTR_ITS ---
PT Notes Visit Reasons: Heart Failure Date: 10/22/2024 PRECAUTIONS: Fall. Standard. Activity as tolerated. SUBJECTIVE: Pt in recliner when approached for therapy this afternoon, pt reports she agrees to participate with therapy but is concerned about her tendency to have vomiting urges and uncontrollable BM. pt agrees to parti cipating with therapy as long as we stay close to the toilet. OBJECTIVE: ?no lines, ? PAIN: denies VITALS: monitored by nursing ? Therapeutic Activities 46141: Direct one-on-one instruction in dynamic activities to improve functional performance. ?? BED MOBILITY/TRANSFERS? Rolling L/R: supervision Supine-sit: ?supervision ? Sit-supine: ?supervision ? Sit-stand: ?supervision ? Stand-sit: ??supervision ? Bed-Chair:? ?supervision ? Chair-bed: supervision Provided skilled cues and instruction on performance and technique throughout. Gait Training 04557: Direct one-on-one instruction and skilled instruction in: Employing an assistive device Movement sequencing Turning and movement with proper form Provided instruction in gait pattern Patient education regarding pacing and breathing techniques to maximize activity tolerance? GAIT? Assistive Device: ??FWW? Weight bearing: FWB Assist: ? Supervision? Distance:?? ?80'x1, 40'x1 ? Deviation: ? Unremarkable ( stayed inside pt room for easy access to the toilet just incase pt had the urge to go)? Therapeutic Exercises 39447: Direct one-on-one instruction in therapeutic exercises to develop strength, endurance, range of motion and flexibility. Exercises: Sit to stand [id number] Seated marching [id number] Seated LAQ [id number] Seated SAQ [id number] Seated hip External rotation [id number] Standing hip 3way [id number] Standing squats FWW [id number] Provided skilled instruction in proper exercise performance Provided skilled manual cues to facilitate proper muscle recruitment and/or form: ASSESSMENT:?Pt tolerated activity well, pt able to complete session without having the urge to vomit or do a BM. PLAN: Continue with balance training, global strengthening and general conditioning for improved safety, mobility and activity tolerance until pt is ready for DC. TREATMENT CODE/TIME: 97225g2, 92777v2 30mins (1:40-2:10pm)
[2024-10-22] MEDS: Pantoprazole 40 MG TABCR PO (15:12)
[2024-10-22] MEDS: Acetaminophen 500 MG TAB PO (15:13)
[2024-10-22] MEDS: Loperamide 2 MG CAP PO (15:13)
[2024-10-22 15:33] VITALS: BP 156/93; PULSE 74; RESP 16; TEMP 36.7; O2SAT 97
[2024-10-22] MEDS: Furosemide 40 MG TAB 80 MG PO (15:42)
[2024-10-22 20:44] VITALS: BP 138/81; PULSE 70; RESP 20; TEMP 36.5; O2SAT 97
--- NOTE | 2024-10-23 06:03 | W.NUTRFU ---
Date of service: 10/22/24 Time of Service: 14:30 Nutrition Note NOTE: Received nutrition consult request regarding food choices. Jessica sitting up in chair at my visit. Jessica is 84yo female admitted for CHF exacerbation and a history which includes CKD (GFR 24 1/3),Afib, venous insufficiency, recurrent UTI, HTN, HLD, GERD. wt loss of 4.4 kg this admission from diuresis. Appetite good with 100% of meals consumed on average. Time Spent in Nutritional Counseling and Treatment: 25 minutes
[2024-10-23 06:51] LABS: Abs Immature Grans 0.03 10^3/uL (0.0-0.06); Absolute Basophil Count 0.03 10^3/uL (0.0-0.2); Absolute Eosinophil Count 0.24 10^3/uL (0.0-0.7); Absolute Lymphocyte Count 1.45 10^3/uL (1.2-3.4); Absolute Monocyte Count 0.64 10^3/uL (0.1-0.8); Absolute Neutrophil Count 4.42 10^3/uL (1.2-6.7); Basophils % 0.4 %; Eosinophils % 3.5 %; HCT 31.6 % (36.0-46.0); HGB 10.2 g/dL (11.2-15.7); Immature Grans % 0.4 %; Lymphocytes % 21.3 %; MCH 30.5 pg (27.0-33.0); MCHC 32.3 % (32.0-36.0); MCV 95 fL (80-95); MPV 9.5 fL (8.0-11.0); Monocytes % 9.4 %; Platelet Count 344 10^3/uL (130-400); RBC 3.34 10^6/uL (3.93-5.22); RDW 12.1 % (11.7-14.6); RDW-SD 42.2 fL; WBC 6.81 10^3/uL (4.4-10.8)
[2024-10-23 07:05] LABS: Anion Gap 7.8 mmol/L (3-11); BUN 30 mg/dL (7-18); CO2 29.2 mmol/L (21.0-32.0); Calcium 9.4 mg/dL (8.5-10.1); Chloride 102 mmol/L (98-107); Estimated GFR 24.33 (mL/min/1.73m2); Glucose 100 mg/dL (74-106); Magnesium 2.1 mg/dL (1.8-2.4); Potassium 3.6 mmol/L (3.5-5.1); Sodium 139 mmol/L (136-145)
[2024-10-23 07:40] VITALS: BP 153/88; PULSE 74; RESP 15; TEMP 36; O2SAT 98
[2024-10-23] MEDS: Furosemide 40 MG TAB 80 MG PO (09:22)
[2024-10-23] MEDS: Loperamide 2 MG CAP PO (09:22)
[2024-10-23] MEDS: Losartan 50 MG TAB PO (09:22)
[2024-10-23] MEDS: Metoprolol CR 25 MG TABCR 75 MG PO (09:23)
[2024-10-23] MEDS: Acetaminophen 500 MG TAB PO (09:23)
[2024-10-23] MEDS: Apixaban 2.5 MG TAB PO (09:23)
[2024-10-23] MEDS: Normal Saline Flush 10 ML SYR IVP (09:25)
--- NOTE | 2024-10-23 11:39 | W.PM.DS.N ---
Date of service: 10/23/24 Time of Service: 11:39 DS: Diagnosis Discharge Diagnosis (1) Acute on chronic heart failure with preserved ejection fraction (HFpEF): Status: Acute Asessment and Plan: improved after diuresis (2) Elevated troponin: Status: Acute Asessment and Plan: remained flat with no EKG changes. (3) Chronic kidney disease (CKD) stage G4/A3, severely decreased glomerular filtration rate (GFR) between 15-29 mL/min/1.73 square meter and albuminuria creatinine ratio greater than 300 mg/g: Status: Acute Asessment and Plan: stable and at baseline. 2.0 on discharge (4) Peripheral vascular disease, unspecified: Status: Chronic Asessment and Plan: needs vascular follow up, has been referred by outpatient team (5) Gastroesophageal reflux: Status: Chronic (6) Atrial fibrillation: Status: Chronic (7) Hypertension: Status: Chronic (8) UTI (urinary tract infection): Status: Acute Asessment and Plan: urine culture going MDR e coli, will treat with fosfomycin one dose prior to discharge no dysuria, frequency or urgency Discharge Plan Disposition Patient Disposition: Home W/Home Health Services Condition: Improving Discharge Details Reason For Visit: Heart Failure Admit Date/Time: 10/21/24 15:20 Admit Provider: Robert Chandra Attending Provider: Robert Chandra Primary Care Provider: [facility] Hospital Course: This is an 84-year-old female patient complex past medical history including atrial fibrillation heart failure with preserved ejection fraction peripheral arterial disease hypertension dyslipidemia presented to the emergency department with complaints of shortness of breath found to be in congestive heart failure she received IV diuresis referred to hospitalist service for admission for further management and monitoring. Her creatinine remained below baseline at 2.0 on discharge. Respiratory status improved after diuresis with no oxygen requirements. Incidentally found to have a urinary tract infection growing greater than 100,000 colony of multidrug resistant E. coli treated with fosfomycin prior to discharge. She is stable for discharge to home she will be discharged with new home health services including nursing PT OT and medical laboratory assistant. discharge discussed with DR Chandra Home Meds and New Rx's Prescriptions: Continued calcitriol 0.25 mcg capsule 0.25 mcg PO Q OTHER DAY marce root extract 15 mg tablet,chewable 15 mg PO .PO polyethylene glycol 3350 [Miralax] 17 gram/dose powder 17 g PO DAILY PRN losartan 50 mg tablet 50 mg PO BID estradiol 0.01 % (0.1 mg/gram) cream 0.5 g vaginal .Twice a week Qty: 42.5 4RF cetirizine [Allergy Relief (cetirizine)] 5 mg tablet 5 mg PO DAILY PRN Savella 50 mg tablet 50 mg PO BID docusate calcium 240 mg capsule 240 mg PO BID tramadol [Ultram] 50 mg tablet 50 mg PO BID PRN Eliquis 2.5 mg tablet 2.5 mg PO BID Qty: 180 3RF furosemide [Lasix] 40 mg tablet 40 mg PO BID Qty: 180 3RF metoprolol succinate 50 mg tablet extended release 24 hr 50 mg PO DAILY Qty: 90 3RF Rx Instructions: Take 1 daily in addition to the 25mg tablet metoprolol succinate 25 mg tablet extended release 24 hr 25 mg PO DAILY Qty: 90 3RF Rx Instructions: Take 1 daily in addition to the 50mg tablet Zyrtec 10 mg capsule 5 mg PO DAILY PRN melatonin 10 mg capsule 10 mg PO QHS PRN acetaminophen [Tylenol Extra Strength] 500 mg tablet 500 mg PO Q6H PRNQty: 90 0RF nitroglycerin 0.4 mg Tablet, Sublingual 0.4 mg SUBLINGUAL Q5-15M PRN Discharge Instructions Instructions: Heart failure Additional Instructions: resume usual medications as directed your were treated for a urinary tract infection, there are no further antibiotics needed at discharge. please notify your doctor if you have any symptoms of burning, urgency or frequency or any back pain, fever or other symptoms immediately. drink 6-8 glasses of water daily to stay well hydrated. Stand Alone Forms: Nursing Discharge Form Referrals: Alejandra Irving NP [Primary Care Provider] - Activity:: Activity as Tolerated Equipment/Supplies:: No Equipment Needed Diet:: Low Sodium Discharge Orders Discharge Orders: Discharge Order (Routine); Ordered 10/23/24 Ordered By: Bebe Cline DS: Summary Time Spent with Patient providing and/or coordinating discharge services: Greater than 30 minutes Status at Discharge Functional status at discharge: uses cane/walker Overall status at discharge: patient is progressing back to baseline Mental Status: mental status grossly normal Speech and Movement: speech and movement normal Mood: congruent mood Affect: normal affect Quality:SDOH Health Related Social Needs: Health related social needs housing instability, housed, with risk of homelessness (Z59.811) Exam Const General: cooperative, comfortable and no acute distress Nutritional Appearance: obese Orientation: alert, awake and oriented x3 HENMT Head: normal to inspection, normocephalic and atraumatic Eyes General: appearance normal, both eyes and all related structures Pupils: PERRL EOM: EOM intact bilaterally Neck Neck: normal visual inspection Chest Chest: normal inspection of the chest Resp Effort & Inspection: normal respiratory effort Auscultation: clear to auscultation bilaterally and rales (fine, bases bilaterally no wheezing) bilaterally Cardio Rate: regular rate GI Inspection: normal to inspection Palpation: soft and nontender Skin General skin exam: no rashes or lesions noted Neuro General: patient alert, patient awake and patient oriented x3 Cognition: normal cognition Speech: speech normal Extrem General: normal to inspection, full ROM and edema (lower, chronic) Laterality: bilateral Psych Appearance: grossly normal Mental Status: mental status grossly normal Speech and Movement: speech and movement normal Mood: congruent mood Affect: normal affect DS: Data Vitals/I&O Vitals and I&O: Vital Signs Temperature 36.0 C L 10/23/24 07:40 Temperature Source Temporal Artery Scan 10/23/24 07:40 Pulse 74 10/23/24 07:40 Pulse Rhythm Irregular 10/21/24 16:52 Pulse 92 H 10/21/24 15:40 Respiratory Rate 15 10/23/24 07:40 Respiratory Effort Normal, Non-Labored 10/21/24 16:52 Respiratory Depth Normal 10/21/24 16:52 Respiratory Pattern Normal 10/21/24 16:52 Blood Pressure 153/88 H 10/23/24 07:40 Blood Pressure Mean 121 10/21/24 15:31 Pulse Oximetry 98 10/23/24 07:40 Oxygen Delivery Method Room Air 10/23/24 07:40 Oxygen Flow Rate 0 10/23/24 07:40 Pain Level 5 10/23/24 09:23 Comment MAP 128 10/21/24 23:33 Intake & Output 10/22/24 10/22/24 10/23/24 11:59 23:59 11:59 Intake Total 360 / 860 500 / 860 360 / 360 Output Total 1450 / 1450 1400 / 1400 Balance 360 / -590 -950 / -590 -1040 / -1040 Weight 90.4 kg 89 kg Intake: Oral 360 / 860 500 / 860 360 / 360 Output: Urine 1250 / 1250 1400 / 1400 Stool 200 / 200 Other: Urine Color Yellow Pale Yellow Urine Appearance Clear Clear Urine Odor None Foul Comment pt voided x1 collected from hat in toilet Stool Size Small Small Stool Characteristics Liquid Liquid Emesis Description None Data Completed and Pending Labs on day of discharge: Labs from last 24 hours 10/23/24 06:25 WBC 6.81 RBC 3.34 L Hgb 10.2 L Hct 31.6 L MCV 95 MCH 30.5 MCHC 32.3 RDW 12.1 Plt Count 344 MPV 9.5 Immature Gran % 0.4 Neutrophils % 65.0 Lymphocytes % 21.3 Monocytes % 9.4 Eosinophils % 3.5 Basophils % 0.4 Nucleated RBC % 0.0 Absolute Neutrophils 4.42 Absolute Lymphocytes 1.45 Absolute Monocytes 0.64 Absolute Eosinophils 0.24 Absolute Basophils 0.03 Sodium 139 Potassium 3.6 Chloride 102 Carbon Dioxide 29.2 Anion Gap 7.8 BUN 30 H Creatinine 2.0 H Est GFR (CKD-EPI 2020) 24.33 Glucose 100 Calcium 9.4 Magnesium 2.1 PFSH All Active Problems (Updated 10/23/24 @ 11:40 by Bebe Cline NP) UTI (urinary tract infection) (Acute) On deep vein thrombosis (DVT) prophylaxis (Acute) Breath shortness (Acute) CHF (congestive heart failure) (Chronic) Discharge planning issues (Acute) Chronic kidney disease (CKD) stage G4/A3, severely decreased glomerular filtration rate (GFR) between 15-29 mL/min/1.73 square meter and albuminuria creatinine ratio greater than 300 mg/g (Acute) Elevated troponin (Acute) Atrial fibrillation (Chronic) Acute on chronic heart failure with preserved ejection fraction (HFpEF) (Acute) Atrial fibrillation with RVR (Acute) Venous insufficiency (Acute) Nausea vomiting and diarrhea (Acute) Recurrent UTI (Acute) CKD (chronic kidney disease) stage 4, GFR 15-29 ml/min (Acute) Systemic lupus erythematosus (Chronic) Chronic diastolic CHF (congestive heart failure) (Chronic) Atrial fibrillation (Chronic) Chronic respiratory failure with hypoxia (Chronic) Dyspnea on exertion (Chronic) Followed by [facility] Pulmonology. Normal PFTs. 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) Obesity (BMI 30-39.9) (Chronic) Medical History Pancreatitis Basal cell carcinoma of skin Surgical History Status post amputation of toe of left foot Left second toe for hammer toe S/P small bowel resection (~2013) Sigmoid colectomy with diverting loop ileostomy then eventual ileostomy reversal for diverticulitis S/P repair of ventral hernia (06/25/23) History of revision of total replacement of left knee joint (07/05/21) History of arthroplasty of left knee History of total right knee replacement (TKR) Status post total right knee replacement (~1997) Status post total left knee replacement (~1999) Hx of bilateral cataract extraction Hx of knee surgery S/p bilateral carpal tunnel release History of surgical removal of ganglion cyst both wrists History of hysterectomy Hx of section History of tonsillectomy and adenoidectomy Family History Mother Heart disease Hypertension Father , [place] in 40s Heart disease Myocardial infarction Brother Prostate cancer Heart disease Son Type 1 diabetes mellitus Son , at No problems noted. Daughter Depression Alcohol use disorder Substance use disorder Hemochromatosis Maternal Grandfather No problems noted. Maternal Grandmother No problems noted. Paternal Grandfather No problems noted. Paternal Grandmother No problems noted. Social History Smoking/Tobacco Use Status: Former Tobacco Use Quit Date: 10/20/89 Pack-years: 40 Smoking risk assessment performed?: Yes Alcohol Intake: current Alcohol Intake frequency: a few times a month Drug use: Never Substance use type: does not use Caregiver/Support person: No Household members: none Housing: house Communication Needs: Hard of Hearing and Corrective Lenses Education Level: high school Do you need help understanding health information?: Always Current gender identity: female How often do you talk on the phone with friends or family?: three or more times per week How often do you get together with friends or relatives?: three or more times per week Panel score (0-1 are the most socially isolated patients): 1 What type of physical activity do you participate in: walking and sedentary lifestyle Duration: < 15 minutes/day Special marci needs: No Seatbelt use: always Do you feel safe at home: Yes Additional Social history: lives alone-son and live next door and will be checking on patient post op Time Spent with Patient Time Spent with Patient: 45-69 minutes Time was spent: preparing to see the patient(eg.review tests), obtaining and/or reviewing separately otained hiistory, referring, communicating with other health dog day care attendant, indepentently interpreting results and counseling the patient
[2024-10-23] MEDS: Fosfomycin Tromethamine 3 GM PACKET PO (12:15)
--- NOTE | 2024-10-23 12:20 | PT.INTREAT ---
PT Notes Visit Reasons: Heart Failure Date: 10/22/2024 PRECAUTIONS: Fall. Standard. Activity as tolerated. SUBJECTIVE: Pt in recliner when approached for therapy this afternoon, and was agreeable to PT. OBJECTIVE: ?no lines, ? PAIN: denies VITALS: monitored by nursing ? Therapeutic Activities 44604 x1: Direct one-on-one instruction in dynamic activities to improve functional performance. ?? BED MOBILITY/TRANSFERS? Sit to stand and stand to sit x 4: pt required verbal instruction for correct hand placement. Repositioning: pt was able to independently boost herself back in the chair Assist: Supervision and verbal instruction Provided skilled cues and instruction on performance and technique throughout. Gait Training 05955 x1: Direct one-on-one instruction and skilled instruction in: Employing an assistive device Movement sequencing Turning and movement with proper form Provided instruction in gait pattern Patient education regarding pacing and breathing techniques to maximize activity tolerance? GAIT?Training: ? Assistive Device: ??FWW? Weight bearing: FWB Assist: ? Supervision? Distance:?? ?200'x1, 400'x1 ? ? Returned to room to rest between walking, one rest break in standing during longer walk. ? Deviation: ? Unremarkable ? ASSESSMENT:?Pt was short of breath but able to take a standing break and then resume ambulation. PLAN: Continue with balance training, global strengthening and general conditioning for improved safety, mobility and activity tolerance until pt is ready for DC. TREATMENT CODE/TIME: Gait Training? 68020 x 1, Therapeutic Activities 11470 x 1 25 mins (10:05-10:30)
--- NOTE | 2024-10-23 12:35 | PDOC.HHF2F ---
Home Health Referral Home Health Orders Medical diagnosis necessitation home health referral: Acute on chronic congestive heart failure, urinary tract infection Registered Nurse: Check all that apply Instruct on new or changed medication(s)/assess compliance: Ordered Assess for exacerbation of medical condition, instruct patient/caregivers on signs and symptoms to report for early detection: Ordered Physical Therapist: Check all that apply Increase strength & endurance for safe mobility at home: Ordered To design/establish home maintenance program: Ordered Fall reduction therapy program for patient with history of frequent falls: Ordered Home safety evaluation and teaching/gait training including stair management (if applicable): Ordered Occupational Therapist: Evaluate and treat for patient unable to perform ADL/IADL/self-care: Ordered Upper extremity strengthening, range and motion: Ordered Interior Decorator Paperhanging: Assist with community resources: Ordered Assist with vermin exterminator care planning: Ordered Home Bound Status Requires the aid of supportive device (check all that apply): Walker Describe why leaving home would require a considerable and taxing effort: Requires frequent rest periods Encounter Date and Reason: I certify that a FTF encounter for this patient was performed on October 23, 2024 and that such encounter was related to the primary reason the patient requires home health services. The encounter was conducted in the following manner: By me as the certifying physician, HOSPITAL CHIEF FINANCIAL OFFICER, PA or By an inpatient physician, HOSPITAL CHIEF FINANCIAL OFFICER or PA during an inpatient stay who communicated findings to me, Certification And Authentication I certify that I composed the above information based on my clinical judgment relating to this patient's medical condition and, if applicable, clinical findings communicated to me by the NPP or inpatient physician who performed the FTF encounter. Name of Provider that will be monitoring home health services: Alejandra Irving
[2024-10-23 13:52] VITALS: BP 137/66; PULSE 93; RESP 18; TEMP 36.2; O2SAT 97
--- NOTE | 2024-10-23 14:04 | PDOC.CMDIS ---
Date of service: 10/23/24 Time of Service: 14:04 LACE Index Scoring Tool Questions: Length of Stay (in days): 2 Was the patient admitted via the E.D.?: Yes Comorbidities: Congestive Heart Failure, Chronic Pulmonary Disease and Liver or Renal Disease E.D. Visits: 0 Answers: Total Score: 10 Risk of Readmission: High Risk Care Management Discharge Plan Reason for Hospitalization: Heart Failure Discharge Plan: Chandni will return home today with new orders for HH RN, PT, OT, STEAMTABLE WORKER. She will transport home via private vehicle by family. She will follow up with her PCP and discharge plan of care. Patient/Family Education Needs: Review discharge instructions and limitations, discussion of self care needs including ask me three. Services Needed at Discharge: Home Health Care Services (new HH RN, PT, OT, STEAMTABLE WORKER) SDOH Health Related Social Needs: Health related social needs housing instability, housed, with risk of homelessness (Z59.811)
== END 2024-10-23 15:01 | disposition home health service (06) ==
LOC: ER 11:45 → MS 17:26
PROVIDERS: Nurse Practitioner Acute Care; Admitting Provider Hospitalist; Emergency Provider Physician Assistant; PCP Nurse Practitioner Family; Visit Provider Hospitalist
DX: I13.0 Hypertensive heart and chronic kidney disease with heart failure and stage 1 through stage 4 chronic kidney disease, or unspecified chronic kidney disease (principal); I50.33 Acute on chronic diastolic (congestive) heart failure; N18.4 Chronic kidney disease, stage 4 (severe); J96.11 Chronic respiratory failure with hypoxia; N39.0 Urinary tract infection, site not specified; Z16.24 Resistance to multiple antibiotics; I48.91 Unspecified atrial fibrillation; R74.8 Abnormal levels of other serum enzymes; I87.2 Venous insufficiency (chronic) (peripheral); I27.20 Pulmonary hypertension, unspecified; G47.33 Obstructive sleep apnea (adult) (pediatric); E78.5 Hyperlipidemia, unspecified; D64.9 Anemia, unspecified; K21.9 Gastro-esophageal reflux disease without esophagitis; M79.7 Fibromyalgia; E66.9 Obesity, unspecified; I73.9 Peripheral vascular disease, unspecified; G47.00 Insomnia, unspecified; K57.30 Diverticulosis of large intestine without perforation or abscess without bleeding; H90.3 Sensorineural hearing loss, bilateral; E04.2 Nontoxic multinodular goiter; G60.8 Other hereditary and idiopathic neuropathies; Z96.653 Presence of artificial knee joint, bilateral; Z90.49 Acquired absence of other specified parts of digestive tract; Z98.0 Intestinal bypass and anastomosis status; L93.0 Discoid lupus erythematosus; B96.29 Other Escherichia coli [E. coli] as the cause of diseases classified elsewhere
CPT/HCPCS: 00123; 36415; 80048; 80053; 87077; 93005; 93306; 94640; 96374; 96375; 97110; 97116; 97162; 97530; 99285; 71046; 81003; 81015; 83735; 83880; 84443; 84484; 85025; 87086; 87186; 93010; 99223; 99233; 99239; G0378; J1940; J3490; J7620

== ENCOUNTER → 2024-11-05 10:37 | Outpatient (BNVA) | payer MEDICARE, SELFPAY | PROVIDERS: PCP Nurse Practitioner Family; Referring Provider Nurse Practitioner Family; Visit Provider Internal Medicine Cardiovascular Disease | DX: I50.32 Chronic diastolic (congestive) heart failure (principal); N18.4 Chronic kidney disease, stage 4 (severe); I48.0 Paroxysmal atrial fibrillation | CPT/HCPCS: 99213 ==

== ENCOUNTER 2024-11-08 15:06 | Outpatient (REF) | payer MEDICARE, SELFPAY ==
[2024-11-08 14:05] LABS: Bilirubin Negative (Negative); Blood Trace-intact (Negative); Clarity Sl Cloudy (Clear); Glucose Negative (Negative); Ketones Negative (Negative); Leukocyte Esterase Moderate (Negative); Nitrite Negative (Negative); Specific Gravity 1.015 (1.005-1.025); Urobilinogen 0.2 mg/dL (Up to 0.2)
[2024-11-08 14:14] LABS: Bacteria Few HPF (Negative); C & S Indicated? Yes; Casts Negative LPF (Negative); Crystals Negative HPF (Negative); Epithelial Cells Few HPF (Negative); Mucus Negative (Negative)
== END 2024-11-08 15:07 | disposition home or self-care (01) ==
LOC: LBN 15:06
PROVIDERS: PCP Nurse Practitioner Family; Visit Provider Nurse Practitioner Family
DX: R30.0 Dysuria (principal); R82.89 Other abnormal findings on cytological and histological examination of urine
CPT/HCPCS: 81003; 81015; 87086

== ENCOUNTER → 2024-11-12 09:44 | Outpatient (BNVA) | payer MEDICARE, SELFPAY | PROVIDERS: PCP Nurse Practitioner Family; Referring Provider Nurse Practitioner Family; Visit Provider Internal Medicine Cardiovascular Disease | DX: I50.32 Chronic diastolic (congestive) heart failure (principal); I48.0 Paroxysmal atrial fibrillation; N18.4 Chronic kidney disease, stage 4 (severe) | CPT/HCPCS: 99213 ==

== ENCOUNTER 2024-11-12 15:04 | Outpatient (REF) | payer MEDICARE, SELFPAY ==
[2024-11-12 15:38] LABS: Bilirubin Negative (Negative); Blood Negative (Negative); Clarity Cloudy (Clear); Glucose Negative (Negative); Ketones Negative (Negative); Leukocyte Esterase Moderate (Negative); Nitrite Negative (Negative); Specific Gravity 1.015 (1.005-1.025); Urobilinogen 0.2 mg/dL (Up to 0.2); pH 5.5 (5-8)
[2024-11-12 16:08] LABS: Bacteria Few HPF (Negative); C & S Indicated? Yes; Epithelial Cells Negative HPF (Negative); RBC Negative HPF (0-2); WBC >50 HPF (0-5)
[2024-11-12 16:09] LABS: Crystals Negative HPF (Negative); Mucus Negative (Negative)
== END 2024-11-12 15:05 | disposition home or self-care (01) ==
LOC: LBN 15:04
PROVIDERS: PCP Nurse Practitioner Family; Visit Provider Nurse Practitioner Family
DX: R30.0 Dysuria (principal)
CPT/HCPCS: 87077; 81003; 81015; 87086; 87186

== ENCOUNTER 2024-12-13 03:15 | Outpatient (CLI) | payer MEDICARE, SELFPAY ==
[2024-12-13 14:00] LABS: Abs Immature Grans 0.03 10^3/uL (0.0-0.06); Absolute Basophil Count 0.03 10^3/uL (0.0-0.2); Absolute Eosinophil Count 0.22 10^3/uL (0.0-0.7); Absolute Lymphocyte Count 1.89 10^3/uL (1.2-3.4); Absolute Monocyte Count 0.98 10^3/uL (0.1-0.8); Absolute Neutrophil Count 7.27 10^3/uL (1.2-6.7); Basophils % 0.3 %; Eosinophils % 2.1 %; HCT 35.4 % (36.0-46.0); HGB 11.1 g/dL (11.2-15.7); Immature Grans % 0.3 %; Lymphocytes % 18.1 %; MCH 29.9 pg (27.0-33.0); MCHC 31.4 % (32.0-36.0); MCV 95 fL (80-95); MPV 9.7 fL (8.0-11.0); Monocytes % 9.4 %; Neutrophils % 69.8 %; Platelet Count 374 10^3/uL (130-400); RBC 3.71 10^6/uL (3.93-5.22); RDW 13.1 % (11.7-14.6); WBC 10.42 10^3/uL (4.4-10.8)
[2024-12-13 15:15] LABS: Albumin 3.7 g/dL (3.4-5.0); Anion Gap 9.1 mmol/L (3-11); BUN 38 mg/dL (7-18); CO2 30.9 mmol/L (21.0-32.0); CREATININE 2.5 mg/dL (0.55-1.02); Calcium 9.6 mg/dL (8.5-10.1); Chloride 103 mmol/L (98-107); Estimated GFR 18.61 (mL/min/1.73m2); Glucose 123 mg/dL (74-106); PHOSPHORUS 4.3 mg/dL (2.6-4.7); Sodium 143 mmol/L (136-145); Uric Acid 9.3 mg/dL (2.6-6.0)
[2024-12-13 16:11] LABS: COMMENT (LAB VIEW ONLY) 62.81 mg/dL; PROTEIN 19.9 mg/dL; Prot/Crea Ur Ratio 0.31
[2024-12-13 23:24] LABS: Parathyroid Hormone,Intact 260.7 pg/mL (19.0-88.0)
[2024-12-14 13:09] LABS: Bilirubin Negative (Negative); Blood Negative (Negative); Clarity Clear (Clear); Glucose Negative (Negative); Ketones Negative (Negative); Leukocyte Esterase Moderate (Negative); Nitrite Negative (Negative); Specific Gravity 1.015 (1.005-1.025); Urobilinogen 0.2 mg/dL (Up to 0.2)
[2024-12-14 13:35] LABS: WBC >50 HPF (0-5)
[2024-12-14 13:38] LABS: C & S Indicated? Yes
== END 2024-12-13 03:16 | disposition home or self-care (01) ==
LOC: LBO 03:15
PROVIDERS: PCP Nurse Practitioner Family; Visit Provider Internal Medicine Nephrology
DX: N18.4 Chronic kidney disease, stage 4 (severe) (principal); R33.9 Retention of urine, unspecified; R30.0 Dysuria
CPT/HCPCS: 80048; 87077; 81003; 81015; 82040; 82565; 83970; 84100; 84156; 84550; 85025; 87086; 87186

== ENCOUNTER 2024-12-23 01:44 | Outpatient (CLI) | payer MEDICARE, SELFPAY ==
--- NOTE | 2024-12-23 | DI.RAD_ITS ---
Exam(s) XR HIP PELVIS ADULT BL EXAM: XR HIP PELVIS ADULT BL CLINICAL HISTORY: BILAT GROIN PAIN WITH WT bearing,oa,m15.9,lupus,m32.9. TECHNIQUE: 2D digital imaging was performed. Three views. COMPARISON: No exams were available for comparison FINDINGS: BONES: No acute fracture is present. No bony destructive lesion is seen. Enthesophytes are noted at the iliac wings and greater trochanters. JOINTS: No dislocation present. The hip joint spaces are maintained. There is moderate bilateral spu rring from the femoral heads and mild acetabular spurring. SI joints and pubic symphysis show mild d egenerative changes. SOFT TISSUE: Normal. IMPRESSION: Mild degenerative changes of the bilateral hips. DATA REPOSITORY: RADIATION DOSE DELIVERED:
== END 2024-12-23 02:04 ==
LOC: DI 01:44
PROVIDERS: PCP Nurse Practitioner Family; Visit Provider Internal Medicine Rheumatology
DX: M16.0 Bilateral primary osteoarthritis of hip (principal)
CPT/HCPCS: 73521

== ENCOUNTER → 2025-02-16 14:23 | Outpatient (BNVA) | payer MEDICARE, SELFPAY | PROVIDERS: PCP Nurse Practitioner Family; Referring Provider Nurse Practitioner Family; Visit Provider Podiatrist | DX: L60.3 Nail dystrophy (principal); B35.1 Tinea unguium; N18.4 Chronic kidney disease, stage 4 (severe); G60.9 Hereditary and idiopathic neuropathy, unspecified; I73.89 Other specified peripheral vascular diseases; I87.2 Venous insufficiency (chronic) (peripheral); R09.89 Other specified symptoms and signs involving the circulatory and respiratory systems; R60.0 Localized edema; R20.8 Other disturbances of skin sensation; I83.93 Asymptomatic varicose veins of bilateral lower extremities; R23.8 Other skin changes; L53.8 Other specified erythematous conditions; L65.9 Nonscarring hair loss, unspecified; L60.2 Onychogryphosis; R25.2 Cramp and spasm | CPT/HCPCS: 11719; 11720 ==

== ENCOUNTER 2025-03-08 00:56 | Outpatient (CLI) | payer MEDICARE, SELFPAY ==
--- NOTE | 2025-03-08 13:15 | DI.US_ITS ---
APPROVED REPORT EXAM: Comprehensive 2D, Doppler, and color-flow Echocardiogram Patient Location: Out-Patient Director Medical Economics: Natalya Valencia RDCS (AE) Indications: LV function, A Fib Other Information Study Quality: Fair. Technically limited study due to body habitus. Conclusion Mild concentric left ventricular hypertrophy. Ejection fraction is 55 to 60%. There are no segmenta l wall motion abnormalities Right ventricle is not well-visualized but appears grossly normal in size Both atria are mildly enlarged Trileaflet aortic valve without stenosis or regurgitation Mitral annular calcification. Moderate mitral regurgitation Normal tricuspid valve with mild regurgitation. Estimated right ventricular systolic pressure is 38 mmHg Borderline dilated ascending aorta measuring 3.37 cm Patient was in atrial fibrillation throughout, mildly tachycardic Wall motion Left Ventricle The left ventricle is normal size. The overall left ventricular systolic function appears normal. Aneta t to beat variation due to arrhythmia. Mild left ventricular hypertrophy Regional wall motion is jen sly normal. There is no ventricular septal defect visualized. LVEF is 55%. Right Ventricle Right ventricle is not well visualized. Right ventricular systolic function is grossly normal. Atria Left atrium is mildly dilated. Right atrium is mildly dilated. The interatrial septum is intact with no evidence for an atrial septal defect. Aortic Valve The aortic valve is normal in structure. Aortic valve is trileaflet. There is no aortic valvular sten osis. No aortic regurgitation is present. Mitral Valve Mild mitral annular calcification. No evidence of mitral valve stenosis. Moderate mitral regurgitati on. Tricuspid Valve The tricuspid valve is normal in structure. There is no tricuspid valve stenosis. Mild tricuspid reg urgitation. The RVSP is 37.9 mmHg. Pulmonic Valve The pulmonary valve is normal in structure. There is no pulmonic valvular stenosis. Trace pulmonic re gurgitation. Great Vessels The aortic root is normal in size. The ascending aorta is mildly dilated. IVC is normal in size and c ollapses >50% with inspiration. Pericardium There is no pericardial effusion. 2D Dimensions IVSD d PLAX 0.96 cm F: 0.6-1.0 Ao Root d 2.61 cm F: 2.7 - 3.3 LVPW d PLAX 0.99 cm F: 0.6 - 1.0 Ao Asc Diam d 3.37 cm F: 2.3 - 3.1 LVID d PLAX 4.97 cm F: 3.8 - 5.2 LVDs 3.55 cm F: 2.2 - 3.5 LV EF Teichholz 54.9 % FS 28.58 % LV EDV (Teich) 116.5 mL LV ESV (Teich) 52.6 mL M-Mode TAPSE 1.69 cm (M/F) >1.7 LA Volume LA Length A4C 5.3 cm LA Length A2C 5.8 cm LA Area A4C s 17.86 cm2 LA Area A2C s 17.56 cm2 LA Vol A4C A-L 50.95 mL LA Vol A2C A-L 45.33 mL LA Vol Biplane A-L 50.1 mL LA Vol/BSA A4C A-L LA Vol/BSA A2C A-L LA Vol/BSA BP A-L 25.3 mL/m2 LA Vol A4C MOD 48.6 mL LA Vol A2C MOD 43.0 mL LA Vol BP MOD 47.6 mL RA Volume RA Area A4C 12.6 cm2 RA ESV A4C (A-L) 29.1mL RA Vol/BSA A4C A-L RA Length A4C 4.6 cm RA ESV A4C (MOD) 28.8mL LV Diastology MV E' medial 0.056 (>0.07 m/s) MV E Vmax 1.06 (0.4-1.3 m/s) MV E/E' MED 18.88 (<14) MV A Vmax 0.40 (0.4-1.3 m/s) MV E' lateral 0.113 (>0.1 m/s) E/A Ratio 2.7 MV E/E' LAT 9.36 (<14) MV E' Average 0.085 m/s MV E/E'(average) 12.51 Aortic Valve AoV Vmax 1.56 m/s LVOT Vmax 1.05 m/s AoV Peak Grad 9.7 mmHg LVOT Peak Grad 4.4 mmHg AoV Area (Vmax) 2.04 cm2 LVOT VTI 0.177 m AoV VTI 0.336 m LVOT Mean Grad 2.4 mmHg AoV Mean Toño. 1.13 m/s LVOT SV 53.67 mL AoV Mean Grad 5.7 mmHg LVOT Diam s 1.95 cm AoV Area (VTI) 1.60 cm2 AV Regurg Peak Gr. 9.73 mmHg Velocity Ratio 0.67 Mitral Valve MV DT 187 (160-240 msec) MV Vmax TIPS 0.97 m/s MV Mean Grad 1.7 (<2mmHg) MV VTI 0.172 m Tricuspid Valve RA Pressure 3.00 mmHg TR Vmax 2.95 m/s TV S' 0.15 m/s TR Peak Grad 34.9 mmHg RVSP (TR) 37.9 mmHg
== END 2025-03-08 01:16 ==
LOC: DI 00:56
PROVIDERS: PCP Nurse Practitioner Family; Visit Provider Internal Medicine Cardiovascular Disease
DX: I48.91 Unspecified atrial fibrillation (principal); I51.7 Cardiomegaly
CPT/HCPCS: 93306

== ENCOUNTER → 2025-03-11 12:54 | Outpatient (BNVA) | payer MEDICARE, SELFPAY | PROVIDERS: PCP Nurse Practitioner Family; Referring Provider Nurse Practitioner Family; Visit Provider Internal Medicine Cardiovascular Disease | DX: I48.21 Permanent atrial fibrillation (principal); I50.32 Chronic diastolic (congestive) heart failure; Z79.01 Long term (current) use of anticoagulants; N18.4 Chronic kidney disease, stage 4 (severe) | CPT/HCPCS: 99213 ==

== ENCOUNTER 2025-04-12 02:57 | Outpatient (CLI) | payer MEDICARE, SELFPAY ==
[2025-04-12 11:33] LABS: Abs Immature Grans 0.03 10^3/uL (0.0-0.06); Absolute Basophil Count 0.01 10^3/uL (0.0-0.2); Absolute Eosinophil Count 0.13 10^3/uL (0.0-0.7); Absolute Lymphocyte Count 1.53 10^3/uL (1.2-3.4); Absolute Monocyte Count 0.81 10^3/uL (0.1-0.8); Absolute Neutrophil Count 5.47 10^3/uL (1.2-6.7); Basophils % 0.1 %; Eosinophils % 1.6 %; HCT 35.7 % (36.0-46.0); HGB 11.6 g/dL (11.2-15.7); Immature Grans % 0.4 %; Lymphocytes % 19.2 %; MCH 30.9 pg (27.0-33.0); MCHC 32.5 % (32.0-36.0); MCV 95 fL (80-95); MPV 9.5 fL (8.0-11.0); Monocytes % 10.2 %; Neutrophils % 68.5 %; Platelet Count 342 10^3/uL (130-400); RBC 3.75 10^6/uL (3.93-5.22); RDW 12.3 % (11.7-14.6); WBC 7.98 10^3/uL (4.4-10.8)
[2025-04-12 11:40] LABS: Albumin 3.8 g/dL (3.4-5.0); Anion Gap 14.4 mmol/L (3-11); BUN 44 mg/dL (7-18); CO2 24.6 mmol/L (21.0-32.0); CREATININE 2.7 mg/dL (0.55-1.02); Calcium 9.9 mg/dL (8.5-10.1); Chloride 101 mmol/L (98-107); Estimated GFR 16.97 (mL/min/1.73m2); Glucose 162 mg/dL (74-106); PHOSPHORUS 3.5 mg/dL (2.6-4.7); Potassium 3.8 mmol/L (3.5-5.1); Sodium 140 mmol/L (136-145); Uric Acid 8.9 mg/dL (2.6-6.0)
[2025-04-12 12:13] LABS: Vitamin D 25 Total 26 ng/mL (30-100)
[2025-04-12 19:09] LABS: Parathyroid Hormone,Intact 206 pg/mL (19-88)
== END 2025-04-12 02:58 | disposition home or self-care (01) ==
LOC: LBO 02:58
PROVIDERS: PCP Nurse Practitioner Family; Visit Provider Internal Medicine Nephrology
DX: N18.4 Chronic kidney disease, stage 4 (severe) (principal)
CPT/HCPCS: 36415; 80048; 82306; 82040; 83970; 84100; 84550; 85025

== ENCOUNTER 2025-05-26 19:00 | Inpatient (IN) | payer MEDICARE, SELFPAY ==
[2025-05-26] VITALS (52 sets, daily range): BP systolic 96–191; BP diastolic 57–122; PULSE 63–125; RESP 13–48; TEMP 35.4; O2SAT 97–100
--- NOTE | 2025-05-26 19:00 | RT.EKG_ITS ---
APPROVED REPORT Exam: Resting ECG Reason for Exam: SOB Patient Location: E HR:80 bpm ECG Measurements Heart Rate 80 AXIS [place] [id number] P [id number] QRSd 112 QRS -38 QT 395 T [id number] QTc 464 Conclusion Atrial fibrillation...V-rate 66-106, irreg A-activity Incomplete left bundle branch block...QRSd>110mS, terminal axis(-90,-1) no ST segment or T wave abnormalities to suggest occlusive ID
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
[2025-05-26 19:50] LABS: Abs Immature Grans 0.05 10^3/uL (0.0-0.06); HCT 31.1 % (36.0-46.0); HGB 9.8 g/dL (11.2-15.7); Immature Grans % 0.6 %; MCH 30.9 pg (27.0-33.0); MCHC 31.5 % (32.0-36.0); MCV 98 fL (80-95); MPV 9.3 fL (8.0-11.0); Platelet Count 304 10^3/uL (130-400); RBC 3.17 10^6/uL (3.93-5.22); RDW 13.6 % (11.7-14.6); RDW-SD 49.9 fL; WBC 8.92 10^3/uL (4.4-10.8)
--- NOTE | 2025-05-26 19:54 | DI.RAD_ITS ---
Exam(s) XR CHEST 2V PA LATERAL EXAM: XR CHEST 2V PA LATERAL CLINICAL HISTORY: dyspnea. TECHNIQUE: 2D digital imaging was performed. COMPARISON: CR XR CHEST 2V PA LATERAL from 10/21/2024 FINDINGS: 2 views: Mild cardiomegaly. The mediastinum is not widened. No infiltrates nor pleural effusions. No pulmonary edema. IMPRESSION: No acute pulmonary findings.Mild cardiomegaly. DATA REPOSITORY: RADIATION DOSE DELIVERED:
--- NOTE | 2025-05-26 20:08 | DI.VRAD_ITS ---
PROCEDURE INFORMATION: Exam: XR Chest Exam date and time: 05/26/2025 7:54 PM Age: 84 years old Clinical indication: Dyspnea TECHNIQUE: Imaging protocol: Radiologic exam of the chest. Views: 2 views. COMPARISON: CR XR CHEST 2V PA LATERAL 10/21/2024 1:10 PM FINDINGS: Lungs: Hyperinflation without focal airspace disease, similar to prior. Pleural spaces: No pleural effusion. No pneumothorax. Heart/Mediastinum: Mild cardiomegaly without significant vascular congestion for technique, similar to prior. Bones/joints: Chronic bony changes with no acute fracture. IMPRESSION: 1. Hyperinflation without focal airspace disease, similar to prior. 2. Mild cardiomegaly without significant vascular congestion for technique, similar to prior. Dictated and Authenticated by: Niru Roca MD. Orderin Abhijeet Lenz MD
[2025-05-26 20:17] LABS: ALT 27 U/L (14-59); AST 17 U/L (15-37); Albumin 3.1 g/dL (3.4-5.0); Alkaline Phosphatase 94 U/L (46-116); Anion Gap 7.5 mmol/L (3-11); BUN 48 mg/dL (7-18); Bilirubin, Total 0.4 mg/dL (0.2-1.0); CO2 30.5 mmol/L (21.0-32.0); Calcium 9.0 mg/dL (8.5-10.1); Chloride 102 mmol/L (98-107); Estimated GFR 15.58 (mL/min/1.73m2); Glucose 112 mg/dL (74-106); NT-proBNP 2448 pg/mL (<300); Potassium 3.9 mmol/L (3.5-5.1); Sodium 140 mmol/L (136-145); Total Protein 6.9 g/dL (6.4-8.2)
[2025-05-26 20:18] LABS: Troponin I 56 ng/L (<or=51)
[2025-05-26 20:18] LABS: Glucose Negative (Negative)
[2025-05-26 20:21] LABS: Magnesium 2.4 mg/dL (1.8-2.4); TSH (W/Ref FT4) 1.52 uIU/mL (0.36-3.74)
[2025-05-26 20:26] LABS: C & S Indicated? Yes; RBC Negative HPF (0-2); WBC >50 HPF (0-5)
[2025-05-26] MEDS: Furosemide 100 MG/10 ML VIAL 80 MG IVP (20:51)
[2025-05-26] MEDS: cefTRIAXone 1 GM/50 ML BAG IVPB (20:52)
[2025-05-26 21:15] LABS: Abs Immature Grans 0.05 10^3/uL (0.0-0.06); HCT 29.2 % (36.0-46.0); HGB 9.2 g/dL (11.2-15.7); Immature Grans % 0.6 %; MCH 30.7 pg (27.0-33.0); MCHC 31.5 % (32.0-36.0); MCV 97 fL (80-95); MPV 9.4 fL (8.0-11.0); Platelet Count 283 10^3/uL (130-400); RBC 3.00 10^6/uL (3.93-5.22); RDW 13.6 % (11.7-14.6); RDW-SD 49.0 fL; WBC 8.85 10^3/uL (4.4-10.8)
[2025-05-26 21:38] LABS: Troponin I 52 ng/L (<or=51)
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
[2025-05-27] VITALS (9 sets, daily range): BP systolic 117–159; BP diastolic 52–85; PULSE 67–105; RESP 14–22; TEMP 35.9–36.9; O2SAT 94–98
--- NOTE | 2025-05-27 00:06 | W.PC.ACHO ---
Registration Status: REG ER Primary Language: Preferred Language: Estonian ED Information & Data Chief Complaint SOB 05/26/25 19:09 Chief Complaint SOB 05/26/25 19:03 Triage Note pt arrives via POV coming 05/26/25 19:03 from [facility], SOB w/ increased work of breathing, worse from her baseline. 3+ BLE edema worsening over despite taking lasix and elevating her feet. last week. toes are turning purple. Denies chest pain, n /v. on thinners. hx chf Medical / Surgical History (Last Reviewed 05/26/25 @ 23:03 by Matheus Mejia) Pancreatitis Basal cell carcinoma of skin (Last Reviewed 05/26/25 @ 23:03 by Matheus Mejia) Status post amputation of toe of left foot S/P small bowel resection (~2013) S/P repair of ventral hernia (06/25/23) History of revision of total replacement of left knee joint (07/05/21) History of arthroplasty of left knee Status post total right knee replacement (~1997) Status post total left knee replacement (~1999) History of total right knee replacement (TKR) Hx of bilateral cataract extraction Hx of knee surgery S/p bilateral carpal tunnel release History of surgical removal of ganglion cyst History of hysterectomy Hx of section History of tonsillectomy and adenoidectomy Most Recent Vital Signs Temperature 35.4 C L 05/26/25 19:09 Temperature Source Oral 05/26/25 19:09 Pulse 80 05/26/25 23:46 Pulse 81 05/27/25 00:00 Respiratory Rate 15 05/27/25 00:04 Respiratory Effort Short of Breath 05/26/25 21:51 Respiratory Depth Normal 05/26/25 21:51 Respiratory Pattern Normal 05/26/25 21:51 Blood Pressure 164/73 H 05/26/25 23:46 Blood Pressure Mean 90 05/26/25 23:46 Blood Pressure Position Supine 05/26/25 19:09 Pulse Oximetry 99 05/26/25 23:46 Oxygen Delivery Method Room Air 05/26/25 19:09 Oxygen Flow Rate 0 05/26/25 19:03 Pain Level 0 05/26/25 19:09 Allergies atorvastatin Allergy (Severe, Verified 05/26/25 19:11) Other (See Comment) Iodinated Contrast Media Allergy (Severe, Verified 05/26/25 19:11) Hives doxycycline Allergy (Intermediate, Verified 05/26/25 19:11) vomiting Sulfa (Sulfonamide Antibiotics) Adverse Reaction (Verified 05/26/25 19:11) vomiting Precautions Isolation Standard precaution 05/26/25 19:09 IV IV Catheter Type [Left Saline Lock Antecubital] IV Catheter Gauge [Left 20 Antecubital] Diagnostics 05/26/25 05/26/25 05/26/25 Range/Units 23:30 21:06 19:58 WBC 8.85 (4.4-10.8) 10^3/uL RBC 3.00 L (3.93-5.22) 10^6/uL Hgb 9.2 L (11.2-15.7) g/dL Hct 29.2 L (36.0-46.0) % MCV 97 H (80-95) fL MCH 30.7 (27.0-33.0) pg MCHC 31.5 L (32.0-36.0) % RDW 13.6 (11.7-14.6) % Plt Count 283 (130-400) 10^3/uL MPV 9.4 (8.0-11.0) fL Immature Gran % 0.6 % Neutrophils % 68.1 % Lymphocytes % 20.3 % Monocytes % 9.7 % Eosinophils % 1.1 % Basophils % 0.2 % Nucleated RBC % 0.0 (0.0-0.3) % Absolute Neutrophils 6.02 (1.2-6.7) 10^3/uL Absolute Lymphocytes 1.80 (1.2-3.4) 10^3/uL Absolute Monocytes 0.86 H (0.1-0.8) 10^3/uL Absolute Eosinophils 0.10 (0.0-0.7) 10^3/uL Absolute Basophils 0.02 (0.0-0.2) 10^3/uL Sodium (136-145) mmol/L Potassium (3.5-5.1) mmol/L Chloride (98-107) mmol/L Carbon Dioxide (21.0-32.0) mmol/L Anion Gap (3-11) mmol/L BUN (7-18) mg/dL Creatinine (0.55-1.02) mg/dL Est GFR (CKD-EPI 2020) (mL/min/1.73m2) Glucose (74-106) mg/dL Calcium (8.5-10.1) mg/dL Magnesium (1.8-2.4) mg/dL Total Bilirubin (0.2-1.0) mg/dL AST (15-37) U/L ALT (14-59) U/L Alkaline Phosphatase (46-116) U/L Troponin I 52 H* (<or=51) ng/L NT-Pro-B Natriuret Pep (<300) pg/mL Total Protein (6.4-8.2) g/dL Albumin (3.4-5.0) g/dL TSH (0.36-3.74) uIU/mL Urine Color Yellow (Yellow) Urine Clarity Sl Cloudy (Clear) Urine pH 6.0 (5-8) Ur Specific [place] 1.015 (1.005-1.025) Urine Protein Trace (Neg-Trace) mg/dL Urine Ketones Negative (Negative) mg/dL Urine Blood Trace-lysed H (Negative) Urine Nitrite Negative (Negative) Urine Bilirubin Negative (Negative) Urine Urobilinogen 0.2 (Up to 0.2) mg/dL Ur Leukocyte Esterase Large H (Negative) Urine RBC Negative (0-2) HPF Urine WBC >50 H (0-5) HPF Ur Epithelial Cells Few (Negative) HPF Urine Crystals Negative (Negative) HPF Urine Bacteria Many (Negative) HPF Urine Casts 0-2 Hyaline (Negative) LPF Urine Mucus Trace (Negative) Ur Culture Indicated? Yes Urine Glucose Negative (Negative) mg/dL COVID-19 Source Pending SARS-CoV-2 (PCR) Pending Influenza Type A (PCR) Pending Influenza Type B (PCR) Pending RSV (PCR) Pending ABO/Rh O Positive Antibody Screen NEGATIVE 05/26/25 Range/Units 19:43 WBC 8.92 (4.4-10.8) 10^3/uL RBC 3.17 L (3.93-5.22) 10^6/uL Hgb 9.8 L (11.2-15.7) g/dL Hct 31.1 L (36.0-46.0) % MCV 98 H (80-95) fL MCH 30.9 (27.0-33.0) pg MCHC 31.5 L (32.0-36.0) % RDW 13.6 (11.7-14.6) % Plt Count 304 (130-400) 10^3/uL MPV 9.3 (8.0-11.0) fL Immature Gran % 0.6 % Neutrophils % 66.6 % Lymphocytes % 20.5 % Monocytes % 10.8 % Eosinophils % 1.3 % Basophils % 0.2 % Nucleated RBC % 0.0 (0.0-0.3) % Absolute Neutrophils 5.94 (1.2-6.7) 10^3/uL Absolute Lymphocytes 1.83 (1.2-3.4) 10^3/uL Absolute Monocytes 0.96 H (0.1-0.8) 10^3/uL Absolute Eosinophils 0.12 (0.0-0.7) 10^3/uL Absolute Basophils 0.02 (0.0-0.2) 10^3/uL Sodium 140 (136-145) mmol/L Potassium 3.9 (3.5-5.1) mmol/L Chloride 102 (98-107) mmol/L Carbon Dioxide 30.5 (21.0-32.0) mmol/L Anion Gap 7.5 (3-11) mmol/L BUN 48 H (7-18) mg/dL Creatinine 2.9 H (0.55-1.02) mg/dL Est GFR (CKD-EPI 2020) 15.58 (mL/min/1.73m2) Glucose 112 H (74-106) mg/dL Calcium 9.0 (8.5-10.1) mg/dL Magnesium 2.4 (1.8-2.4) mg/dL Total Bilirubin 0.4 (0.2-1.0) mg/dL AST 17 (15-37) U/L ALT 27 (14-59) U/L Alkaline Phosphatase 94 (46-116) U/L Troponin I 56 H* (<or=51) ng/L NT-Pro-B Natriuret Pep 2448 H (<300) pg/mL Total Protein 6.9 (6.4-8.2) g/dL Albumin 3.1 L (3.4-5.0) g/dL TSH 1.52 (0.36-3.74) uIU/mL Urine Color (Yellow) Urine Clarity (Clear) Urine pH (5-8) Ur Specific [place] (1.005-1.025) Urine Protein (Neg-Trace) mg/dL Urine Ketones (Negative) mg/dL Urine Blood (Negative) Urine Nitrite (Negative) Urine Bilirubin (Negative) Urine Urobilinogen (Up to 0.2) mg/dL Ur Leukocyte Esterase (Negative) Urine RBC (0-2) HPF Urine WBC (0-5) HPF Ur Epithelial Cells (Negative) HPF Urine Crystals (Negative) HPF Urine Bacteria (Negative) HPF Urine Casts (Negative) LPF Urine Mucus (Negative) Ur Culture Indicated? Urine Glucose (Negative) mg/dL COVID-19 Source SARS-CoV-2 (PCR) Influenza Type A (PCR) Influenza Type B (PCR) RSV (PCR) ABO/Rh Antibody Screen 05/26/25 19:58 Urine Culture - Pending Urine - Reflex from Ua Intake and Output - 24 Hour Total 05/26/25 19:00 thru 05/26/25 23:27 Intake Total 50 Output Total 750 Balance -700 Weight 99.79 kg Intake: IV 50 Output: Urine 750 Falls Risk Assessment History of Falls Previous History 05/26/25 19:09 Contributing Factors No Factors 05/26/25 19:09 Ambulatory Aids Uses ambulatory device + 05/26/25 19:09 Tubes/Lines With any additional score 05/26/25 19:09 Gait Evaluation W/any additional score 05/26/25 19:09 Cognition No cognitive impairment 05/26/25 19:09 Fall Total Score 85 05/26/25 19:09 Level of Risk Maximum Risk 05/26/25 19:09 Problems (Last Reviewed 05/26/25 @ 23:03 by Matheus Mejia) Chronic pain (Chronic) CHF exacerbation (Acute) CKD (chronic kidney disease) stage 4, GFR 15-29 ml/min (Chronic) Atrial fibrillation (Chronic) Pulmonary hypertension (Chronic) GLADYS (obstructive sleep apnea) (Chronic) Hypertension (Chronic) Anemia of chronic disease (Chronic) Recurrent UTI (Acute) Idiopathic peripheral neuropathy (Chronic) v v v v v v v v v Sending and/or Receiving Nurses: Please use comment section below to note any information pertinent to the patient hand-off not included above. Information / Comments:Received report from jose manuel HERRERA nurse around [id number].This database report writer is on standby waiting for the pt. Report received from:Jose Manuel
[2025-05-27 00:12] LABS: COVID-19 PCR Negative (Negative); RSV PCR Negative (Negative)
[2025-05-27 06:40] LABS: HCT 30.0 % (36.0-46.0); HGB 9.6 g/dL (11.2-15.7); MCH 31.1 pg (27.0-33.0); MCHC 32.0 % (32.0-36.0); MCV 97 fL (80-95); MPV 9.5 fL (8.0-11.0); Platelet Count 296 10^3/uL (130-400); RBC 3.09 10^6/uL (3.93-5.22); RDW 13.8 % (11.7-14.6); RDW-SD 49.3 fL; WBC 7.82 10^3/uL (4.4-10.8)
[2025-05-27 07:00] LABS: ALT 25 U/L (14-59); AST 15 U/L (15-37); Albumin 2.8 g/dL (3.4-5.0); Alkaline Phosphatase 76 U/L (46-116); Anion Gap 8.9 mmol/L (3-11); BUN 43 mg/dL (7-18); Bilirubin, Total 0.4 mg/dL (0.2-1.0); CO2 30.1 mmol/L (21.0-32.0); Calcium 8.8 mg/dL (8.5-10.1); Chloride 102 mmol/L (98-107); Estimated GFR 17.76 (mL/min/1.73m2); Glucose 107 mg/dL (74-106); Magnesium 2.5 mg/dL (1.8-2.4); Potassium 3.6 mmol/L (3.5-5.1); Sodium 141 mmol/L (136-145); Total Protein 6.6 g/dL (6.4-8.2); Troponin I 44 ng/L (<or=51)
[2025-05-27] MEDS: Furosemide 100 MG/10 ML VIAL 80 MG IVP ×2 (08:39→18:09)
[2025-05-27] MEDS: Docusate Sodium 100 MG/10 ML CUP 240 MG PO ×2 (08:43→20:00)
[2025-05-27] MEDS: Metoprolol CR 50 MG TABCR PO (08:44)
[2025-05-27] MEDS: Apixaban 2.5 MG TAB PO ×2 (08:44→20:00)
[2025-05-27] MEDS: Losartan 50 MG TAB 75 MG PO (08:44)
[2025-05-27] MEDS: Metoprolol CR 25 MG TABCR PO (08:44)
[2025-05-27] MEDS: Gabapentin 100 MG CAP PO ×2 (08:45→20:00)
[2025-05-27] MEDS: Normal Saline Flush 10 ML SYR IVP ×2 (08:46→20:02)
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
--- NOTE | 2025-05-27 12:33 | CHAPLAIN ---
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 She currently lives in an apartment in her son's house and is talking with Cherelle Tirado from Palliative Care about plans for when she isn't well enough to live alone. Chandni said she isn't afraid to talk about needing hospice care because she's been supported by hospice before, when she was caring for her . She is frustrated about being slowed down by her current health issues because she is used to being on the go.
--- NOTE | 2025-05-27 15:17 | PGE_ITS ---
Date of Service Date of service: 05/27/25 Time of Service: 15:17 Assessment and Plan Assessment and plan (1) CHF exacerbation: Start date: 05/26/25 Status: Acute Assessment and plan: Clinically in CHF Down about a liter overnight Preserved LVEF 2.5 months ago, but pHTN as below. Responding to furosemide, continue (2) Recurrent UTI: Start date: 05/26/25 Status: Acute Assessment and plan: Patient without UTI symptoms,though u/a positive. Has chronic incomplete emptying. Started on Rocephin 1 g IV daily. I don't think this should be continued. (3) CKD (chronic kidney disease) stage 4, GFR 15-29 ml/min: Status: Chronic Assessment and plan: This appears stable/stlight improved. Follow BMPs with diuresis. (4) Anemia of chronic disease: Status: Chronic Assessment and plan: Slight worsening from baseline, but increased overnight. No apparent bleeding. (5) Atrial fibrillation: Status: Chronic Assessment and plan: Continue apixaban and metoprolol. Patient is DNR/DNI and cardiac monitoring will be done because of atrial fibrillation and elevated troponins but appears stable. Patient does have occasional retrosternal chest pain for which she takes nitroglycerin sublingually and there is relief. He has no overt history of CAD but this appears to be stable angina pectoris. (6) Pulmonary hypertension: Status: Chronic Assessment and plan: 03/13 echocardiogram with pHTN noted, normal size RV but function not clear. Diursing as above. (7) Idiopathic peripheral neuropathy: Status: Chronic Assessment and plan: Continue outpatient neuropathy treatment with gabapentin. Patient also is on hydrocodone chronically which was increased from tramadol in the recent past. She does have chronic pain. continue. UDS ordered but not done yet (8) Hypertension: Status: Chronic Assessment and plan: Continue outpatient medical therapy. Subjective Subjective Patient reports: tolerating a regular diet, voiding w/o difficulty and shortness of breath; denies nausea, vomiting or fever Interval history since last seen: She is feeling okay. Still feels like she has too much fluid. Not SOB at rest but has SANCHEZ. Exam Narrative Exam Narrative: General: She is alert and oriented, NAD sitting up in chair. Lungs: CTAB, normal effort at rest, No expiratory wheeze.. Heart: Regular rhythm with some fluctuation of rate, no murmur or gallop. Abdomen: soft and nontender to palpation Extremities: 1-2+ slightly pitting edema legs and feet with chronic skin changes having atrophy and loss of hair but no hyperpigmentation. Fair capillary refill. No clubbing or cyanosis. Objective Last Vital Signs Temp 36.1 C L 05/27/25 15:13 Pulse 67 05/27/25 15:13 Resp 16 05/27/25 15:13 BP 117/52 L 05/27/25 15:13 Pulse Ox 84 L 05/27/25 15:13 Laboratory Results - last 24 hr 05/26/25 05/26/25 05/26/25 19:43 19:58 21:06 WBC 8.92 8.85 RBC 3.17 L 3.00 L Hgb 9.8 L 9.2 L Hct 31.1 L 29.2 L MCV 98 H 97 H MCH 30.9 30.7 MCHC 31.5 L 31.5 L RDW 13.6 13.6 Plt Count 304 283 MPV 9.3 9.4 Immature Gran % 0.6 0.6 Neutrophils % 66.6 68.1 Lymphocytes % 20.5 20.3 Monocytes % 10.8 9.7 Eosinophils % 1.3 1.1 Basophils % 0.2 0.2 Nucleated RBC % 0.0 0.0 Absolute Neutrophils 5.94 6.02 Absolute Lymphocytes 1.83 1.80 Absolute Monocytes 0.96 H 0.86 H Absolute Eosinophils 0.12 0.10 Absolute Basophils 0.02 0.02 Sodium 140 Potassium 3.9 Chloride 102 Carbon Dioxide 30.5 Anion Gap 7.5 BUN 48 H Creatinine 2.9 H Est GFR (CKD-EPI 2020) 15.58 Glucose 112 H Calcium 9.0 Magnesium 2.4 Total Bilirubin 0.4 AST 17 ALT 27 Alkaline Phosphatase 94 Troponin I 56 H* 52 H* NT-Pro-B Natriuret Pep 2448 H Total Protein 6.9 Albumin 3.1 L TSH 1.52 Urine Color Yellow Urine Clarity Sl Cloudy Urine pH 6.0 Ur Specific [place] 1.015 Urine Protein Trace Urine Ketones Negative Urine Blood Trace-lysed H Urine Nitrite Negative Urine Bilirubin Negative Urine Urobilinogen 0.2 Ur Leukocyte Esterase Large H Urine RBC Negative Urine WBC >50 H Ur Epithelial Cells Few Urine Crystals Negative Urine Bacteria Many Urine Casts 0-2 Hyaline Urine Mucus Trace Ur Culture Indicated? Yes Urine Glucose Negative COVID-19 Source SARS-CoV-2 (PCR) Influenza Type A (PCR) Influenza Type B (PCR) RSV (PCR) ABO/Rh O Positive Antibody Screen NEGATIVE 05/26/25 05/27/25 23:30 06:08 WBC 7.82 RBC 3.09 L Hgb 9.6 L Hct 30.0 L MCV 97 H MCH 31.1 MCHC 32.0 RDW 13.8 Plt Count 296 MPV 9.5 Immature Gran % Neutrophils % Lymphocytes % Monocytes % Eosinophils % Basophils % Nucleated RBC % Absolute Neutrophils Absolute Lymphocytes Absolute Monocytes Absolute Eosinophils Absolute Basophils Sodium 141 Potassium 3.6 Chloride 102 Carbon Dioxide 30.1 Anion Gap 8.9 BUN 43 H Creatinine 2.6 H Est GFR (CKD-EPI 2020) 17.76 Glucose 107 H Calcium 8.8 Magnesium 2.5 H Total Bilirubin 0.4 AST 15 ALT 25 Alkaline Phosphatase 76 Troponin I 44 NT-Pro-B Natriuret Pep Total Protein 6.6 Albumin 2.8 L TSH Urine Color Urine Clarity Urine pH Ur Specific [place] Urine Protein Urine Ketones Urine Blood Urine Nitrite Urine Bilirubin Urine Urobilinogen Ur Leukocyte Esterase Urine RBC Urine WBC Ur Epithelial Cells Urine Crystals Urine Bacteria Urine Casts Urine Mucus Ur Culture Indicated? Urine Glucose COVID-19 Source Nasopharynx SARS-CoV-2 (PCR) Negative Influenza Type A (PCR) Negative Influenza Type B (PCR) Negative RSV (PCR) Negative ABO/Rh Antibody Screen Time Spent with Patient Time Spent with Patient: 35-49 minutes Time was spent: preparing to see the patient(eg.review tests), obtaining and/or reviewing separately otained hiistory, ordering medications,tests, procedures, referring, communicating with other health career services representative, indepentently interpreting results, counseling the patient and care coordination
[2025-05-27] MEDS: HYDROcodone 5/Acetaminophen 325 TAB PO (22:46)
[2025-05-28 03:19] LABS: Cannabinoids THC Negative (Negative); METHADONE URINE SCREEN Negative (Negative)
[2025-05-28 06:49] LABS: HGB 9.2 g/dL (11.2-15.7)
[2025-05-28 07:06] LABS: Anion Gap 8.6 mmol/L (3-11); BUN 46 mg/dL (7-18); CO2 30.4 mmol/L (21.0-32.0); Calcium 8.8 mg/dL (8.5-10.1); Chloride 102 mmol/L (98-107); Estimated GFR 17.76 (mL/min/1.73m2); Glucose 126 mg/dL (74-106); Magnesium 2.5 mg/dL (1.8-2.4); Potassium 3.8 mmol/L (3.5-5.1); Sodium 141 mmol/L (136-145)
[2025-05-28 07:31] VITALS: BP 147/73; PULSE 79; RESP 16; TEMP 36; O2SAT 98
[2025-05-28 07:49] LABS: Iron 46 ug/dL (50-170); Total Iron Binding Capacity 250 ug/dL (250-450); Transferrin Sat 18 % (15-50)
--- NOTE | 2025-05-28 08:22 | IN_ITS ---
PT Notes Visit Reasons: Exacerbation CHF, UTI Inpatient Physical Therapy Evaluation Certification Period:? From 05/28/25?? Through 06/11/25 I certify the need for these services as being medically necessary and skilled as furnished under this plan of treatment while under my care. Please sign and return within 14 days if you agree with the plan of care listed below.? Thank you for this referral! ? Referring Physician? Date Referring Doctor:? PT Orders: PT CONSULT for Safety Consult for D/C Precautions: Patient Profile/Admitting Diagnosis:? The patient is a 84 yo female admitted on 05/26/25 via ED with worsening SOB related to her CHF. She was referred to PT for evaluation for assistive device and safety consult. Patient lives in a [id number] apartment in her son's home. She has 2 steps with a railing on the right side to enter her home which she states she can do independently. She has been receiving outpatient physical therapy for pelvic health and has been driving herself to these appointments. She has been using a rolling walker for ambulation due to balance issues. Patient has both a rolling walker and a cane at home. Past Medical History: [facility] All Active Problems (Updated 05/26/25 @ 23:11 by Matheus Mejia) Chronic pain (Chronic) CHF exacerbation (Acute) Itching (Acute) Nausea & vomiting (Acute) Incontinence (Acute) Pain (Acute) Palliative care status (Chronic) Chronic heart failure with preserved ejection fraction (Chronic) CKD (chronic kidney disease) stage 4, GFR 15-29 ml/min (Chronic) Atrial fibrillation (Chronic) Systemic lupus erythematosus (Chronic) Dyspnea on exertion (Chronic) [place] [facility] [place] Normal PFTs, chest imaging. Suspected secondary to pulmonary HTN, CHFPulmonary hypertension (Chronic) PAD (peripheral artery disease) (Chronic) Mild, asymptomatic, no routine vascular [facility] [place] (Chronic) Uses as needed, not dependentOSA (obstructive sleep apnea) (Chronic) Nausea vomiting and diarrhea (Chronic) Followed [place] [facility] GIHypertension (Chronic) Hyperlipidemia (Chronic) Insomnia (Chronic) Anemia of chronic disease (Chronic) Recurrent UTI (Acute) Incomplete bladder emptying (Chronic) Gastroesophageal reflux (Chronic) Fibromyalgia (Chronic) Sensorineural hearing loss, bilateral (Chronic) Idiopathic peripheral neuropathy (Chronic) 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) Diverticulosis of colon (Chronic) Obesity (BMI 30-39.9) (Chronic) Medical History Pancreatitis Basal cell carcinoma of skin Surgical History Status post amputation of toe of left foot Left second toe for hammer toeS/P small bowel resection (~2013) Sigmoid colectomy with diverting loop ileostomy then eventual ileostomy reversal for diverticulitisS/P repair of ventral hernia (06/25/23) History of revision of total replacement of left knee joint (07/05/21) History of arthroplasty of left knee Status post total right knee replacement (~1997) Status post total left knee replacement (~1999) History of total right knee replacement (TKR) Hx of bilateral cataract extraction Hx of knee surgery S/p bilateral carpal tunnel release History of surgical removal of ganglion cyst both wrists History of hysterectomy Hx of section History of tonsillectomy and adenoidectomy Social History/Home Situation: Pt lives in an in-law apartment at her son's house. Subjective: Chandni she reports that she has been having some trouble with her balance and has been using a walker at home. She notices when she uses her walker she has less shortness of breath. Objective: Mental Status: Patient is alert and oriented. Pain: None ROM/Strength: Upper extremities: ROM (B) UE WFL Strength (B) UE grossly 4/5 Lower extremities: ROM WFL (B) LE Strength (B) LE grossly 4+/5-5/5 ROM Tranfers: Sit to stand supervision of 1 Gait: Ambulated feet 250 feet with front wheeled rolling walker and contact- guard to standby assist of 1. Patient required skilled instruction for navigat ion of assistive device especially for turning corners. Balance: Sitting Balance: static sitting (I) dynamic sitting balance (I) Standing balance: Static standing balance independent with bilateral upper extremity support dynamic standing balance close supervision supervision to contact-guard [facility] AM-PAC 6 clicks Basic Mobility Inpatient Short Form: Raw Score: 23? CMS Score: 11.2% Informed Consent/Education:? Patient instructed in purpose of PT consult and plan of care and is agreeable Assessment:? Patient is a?84year old female admitted on 05/26/25 for SOB related to worsening CHF. ? Patient presents with pain, decreased strength, decreased functional mobility, decreased balance and difficulty with ambulation. The patient would benefit from skilled inpatient services to improve these impairments to maximize function and safety. Patient is assessed as:?Moderate 98382?? History: Patient has a recently been receiving outpatient PT services for pelvic floor. Examination: see above Presentation: Stable and uncomplicated? Evolving clinical presentation? Unstable/unpredictable? Decision Making:? Moderate (1-2 history, 2-3 exam, evolving, mod-30 mins) Physical Therapy Goals: 1 week Able to get in/out of bed with supervision only. Able to perform sit to/from stand with supervision only. Able to walk feet with rolling walker with supervision only. Able to go up and down 2-3 steps with 1 rail with contact guard assist only. Independent with home exercise program Plan of Care/Treatment Plan: 1-2x/day, 7 days/week x 1 week. Plan of care has been reviewed with the WET PROCESS OPERATOR providing the service under Physical Therapy direction. Initiate Physical Therapy intervention for strengthening, bed mobility, transfers, gait, stairs, balance training, use of assistive device. DISCHARGE RECOMMENDATIONS: Resume outpatient PT. Would also recommend outpatient physical therapy for strengthening and work on increasing endurance. If patient requires home health nursing would change that recommendation to home health PT. Patient has a rolling walker and a cane at home. Billing Charges: Treatment Units Time Duration Manual Therapy(08453) Hands-on techniques to modulate pain increase joint range of motion reduce or eliminate soft tissue swelling, inflammation, or restriction facilitate relaxation and improve contractile and non-contractile tissue extensibility ? ? Therapeutic Procedures (14099) Instruction in therapeutic exercises to develop strength and endurance, range of motion and flexibility. HEP instruction and review: Provided skilled instruction in proper exercise performance: Provided skilled manual cues to facilitate proper muscle recruitment and/or movement pattern Neurological Re-Education(09102) To improve balance, coordination, kinesthetic and proprioceptive sensations. ? ? Ultrasound(30731) To promote healing. ? ? Gait Training(03595) ?1 ?8 Therapeutic Activity(25093) Instruction in dynamic activities with one on one patient contact by the provider to improve functional performance as follows: ? ? Self Care Training(29451) ? ? E-Stim (Attended)(10307) ? ? Low IE(55879) Mod IE(48294) ?1 30 ? High IE(10647) ? ? Time Coded Treatment Time ? 8 Total Treatment Time ? 38 Informed consent Prior to the start and throughout the course of the examination and treatment, patient was made aware of the specifics and purpose of the physical assessment and treatment procedures. Appropriate draping procedures were utilized to protect modesty where applicable.
[2025-05-28] MEDS: Losartan 50 MG TAB 75 MG PO (08:54)
[2025-05-28] MEDS: Furosemide 100 MG/10 ML VIAL 80 MG IVP (08:55)
[2025-05-28] MEDS: Apixaban 2.5 MG TAB PO (08:56)
[2025-05-28] MEDS: Metoprolol CR 50 MG TABCR PO (08:56)
[2025-05-28] MEDS: Metoprolol CR 25 MG TABCR PO (08:56)
[2025-05-28] MEDS: Normal Saline Flush 10 ML SYR IVP (08:57)
[2025-05-28] MEDS: Gabapentin 100 MG CAP PO (08:58)
[2025-05-28] MEDS: Docusate Sodium 100 MG CAP PO (10:18)
[2025-05-28 10:56] VITALS: BP 160/71; PULSE 82; RESP 24; TEMP 36; O2SAT 98
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
== END 2025-05-28 14:26 | disposition home or self-care (01) | DRG 291 ==
LOC: ER 23:32 → MS 05-27 00:23
PROVIDERS: Admitting Provider Family Medicine; Emergency Provider Physician Assistant; PCP Nurse Practitioner Family; Responsible Provider Family Medicine; Visit Provider Family Medicine
DX: I13.0 Hypertensive heart and chronic kidney disease with heart failure and stage 1 through stage 4 chronic kidney disease, or unspecified chronic kidney disease (principal); I50.33 Acute on chronic diastolic (congestive) heart failure; N39.0 Urinary tract infection, site not specified; N18.4 Chronic kidney disease, stage 4 (severe); I48.0 Paroxysmal atrial fibrillation; D63.1 Anemia in chronic kidney disease; G60.9 Hereditary and idiopathic neuropathy, unspecified; G89.29 Other chronic pain; B96.4 Proteus (mirabilis) (morganii) as the cause of diseases classified elsewhere; R09.02 Hypoxemia; Z66 Do not resuscitate; Z96.653 Presence of artificial knee joint, bilateral; Z79.01 Long term (current) use of anticoagulants; L93.0 Discoid lupus erythematosus; I27.20 Pulmonary hypertension, unspecified; I73.9 Peripheral vascular disease, unspecified; M79.7 Fibromyalgia; K21.9 Gastro-esophageal reflux disease without esophagitis; R33.9 Retention of urine, unspecified; H90.3 Sensorineural hearing loss, bilateral; K57.30 Diverticulosis of large intestine without perforation or abscess without bleeding; E66.9 Obesity, unspecified; Z87.440 Personal history of urinary (tract) infections; R45.89 Other symptoms and signs involving emotional state
CPT/HCPCS: 00123; 36415; 80048; 80053; 80307; 85027; 86850; 86900; 86901; 87077; 87637; 93005; 96365; 96375; 97116; 97161; 99285; 71046; 81003; 81015; 83540; 83550; 83735; 83880; 84443; 84484; 85018; 85025; 87086; 87186; 93010; 99223; 99232; 99239; J0696; J1938

== ENCOUNTER → 2025-05-30 13:22 | Outpatient (BNVA) | payer MEDICARE, SELFPAY | PROVIDERS: PCP Nurse Practitioner Family; Referring Provider Nurse Practitioner Family; Visit Provider Podiatrist | DX: R60.0 Localized edema (principal); G60.9 Hereditary and idiopathic neuropathy, unspecified; I73.89 Other specified peripheral vascular diseases; I87.2 Venous insufficiency (chronic) (peripheral); N18.4 Chronic kidney disease, stage 4 (severe) | CPT/HCPCS: 99214 ==

== ENCOUNTER 2025-06-03 07:44 | Outpatient (CLI) | payer MEDICARE, SELFPAY ==
[2025-06-03 12:41] LABS: HCT 30.3 % (36.0-46.0); HGB 9.5 g/dL (11.2-15.7); MCH 30.9 pg (27.0-33.0); MCHC 31.4 % (32.0-36.0); MCV 99 fL (80-95); MPV 9.5 fL (8.0-11.0); Platelet Count 383 10^3/uL (130-400); RBC 3.07 10^6/uL (3.93-5.22); RDW 13.9 % (11.7-14.6); RDW-SD 49.5 fL; WBC 9.21 10^3/uL (4.4-10.8)
[2025-06-03 13:12] LABS: Anion Gap 10.6 mmol/L (3-11); BUN 35 mg/dL (7-18); CO2 31.4 mmol/L (21.0-32.0); Calcium 9.5 mg/dL (8.5-10.1); Chloride 101 mmol/L (98-107); Estimated GFR 17.76 (mL/min/1.73m2); Ferritin 144 ng/mL (8-252); Glucose 116 mg/dL (74-106); Magnesium 2.6 mg/dL (1.8-2.4); Potassium 3.9 mmol/L (3.5-5.1); Sodium 143 mmol/L (136-145)
== END 2025-06-03 07:45 | disposition home or self-care (01) ==
PROVIDERS: PCP Nurse Practitioner Family; Referring Provider Nurse Practitioner Family; Visit Provider Nurse Practitioner Family
DX: I50.32 Chronic diastolic (congestive) heart failure (principal); N18.4 Chronic kidney disease, stage 4 (severe); D63.8 Anemia in other chronic diseases classified elsewhere
CPT/HCPCS: 36415; 80048; 85027; 82728; 83735

== ENCOUNTER → 2025-06-21 13:22 | Outpatient (BNVA) | payer MEDICARE, SELFPAY | PROVIDERS: PCP Nurse Practitioner Family; Referring Provider Nurse Practitioner Family; Visit Provider Podiatrist | DX: I73.89 Other specified peripheral vascular diseases (principal); I87.2 Venous insufficiency (chronic) (peripheral); N18.4 Chronic kidney disease, stage 4 (severe); G60.9 Hereditary and idiopathic neuropathy, unspecified; M20.41 Other hammer toe(s) (acquired), right foot; R09.89 Other specified symptoms and signs involving the circulatory and respiratory systems; R60.0 Localized edema; R20.8 Other disturbances of skin sensation; I83.93 Asymptomatic varicose veins of bilateral lower extremities; R23.4 Changes in skin texture; L60.8 Other nail disorders; L53.8 Other specified erythematous conditions; L65.9 Nonscarring hair loss, unspecified; L60.2 Onychogryphosis; L85.8 Other specified epidermal thickening | CPT/HCPCS: 11056; 11719; 11720 ==

== ENCOUNTER 2025-07-20 03:35 | Outpatient (CLI) | payer MEDICARE, SELFPAY ==
--- NOTE | 2025-07-20 07:30 | DI.CT_ITS ---
Exam(s) CT HEAD WO EXAM: CT HEAD WO CLINICAL HISTORY: fall, headache, on eliquis,Z79.01,R51.9,W19.XXXA. TECHNIQUE: Imaging Protocol: Axial computed tomography images with coronal and sagittal reformatted images were created and reviewed COMPARISON: CT CT HEAD WO from 11/05/2023 FINDINGS: Ventricles and Extra axial spaces: Normal in size and morphology for the patient's age. Hemorrhage: None. Cerebral parenchyma: No evidence of acute infarct or mass. Moderate atrophy. White matter changes consistent with small vessel disease. Stable appearance from prior. Midline shift: None. Brainstem/Cerebellum: Normal. Bones: No skull or facial fractures. Visualized Paranasal sinuses:Clear. Mastoids: Clear. Soft Tissues: Unremarkable. ORBITS: Unremarkable. PITUITARY: Not enlarged. IMPRESSION: No acute intracranial process. RADIATION DOSE DELIVERED: 871.95mGy.cm Total DLP DATA REPOSITORY: All CT scans at this facility are submitted to the National Radiology Data Registry (NRDR) Dose Index Registry (DIR) with the [employer] (A[employer]). RADIATION OPTIMIZATION: All CT scans at this facility use at least one of these dose optimization techniques: automated exposure control; mA and/or kV adjustment per patient size (includes targeted exams where dose is matched to clinical indication); or iterative reconstruction.
== END 2025-07-20 03:55 ==
LOC: DI 03:35
PROVIDERS: PCP Nurse Practitioner Family; Visit Provider Nurse Practitioner Family
DX: R51.9 Headache, unspecified (principal); Z79.01 Long term (current) use of anticoagulants; W19.XXXA Unspecified fall, initial encounter
CPT/HCPCS: 70450

== ENCOUNTER 2025-08-29 13:43 | Emergency (ER) | payer MEDICARE, SELFPAY ==
[2025-08-29 13:48] VITALS: BP 137/71; PULSE 95; RESP 18; TEMP 36.8; O2SAT 93
--- NOTE | 2025-08-29 14:00 | DI.RAD_ITS ---
Exam(s) XR PELVIS AP XR KNEE LT 3V AP,LAT,ROBERTH XR FEMUR LT EXAM: XR FEMUR LT CLINICAL HISTORY: fall, hip pain. TECHNIQUE: 2D digital imaging was performed. Three views. COMPARISON: None. FINDINGS: Exam is limited by overlying clothing. BONES: No acute fracture is present. No bony destructive lesion is seen. Enthesophytes are present at the iliac wings and greater trochanters. There are severe degenerative changes in the lower lumbar spine. JOINTS: No dislocation present. Mild bilateral hip joint space narrowing and periarticular spurring. Revised knee prosthesis appears unchanged. There is mild spurring at the SI joints and pubic symphysis. SOFT TISSUE: Anastomotic suture material and surgical clips in the pelvis. Lower leg edema. IMPRESSION: No evidence of acute fracture, dislocation, or subluxation. Stable appearance of revised knee prosthesis. DATA REPOSITORY: RADIATION DOSE DELIVERED:
--- NOTE | 2025-08-29 14:00 | DI.CT_ITS ---
Exam(s) CT HEAD CERVICAL SPINE WO EXAM: CT HEAD CERVICAL SPINE WO CLINICAL HISTORY: fall, head strike, L. leg and hand sensory change. TECHNIQUE: Imaging Protocol: Axial computed tomography images with coronal and sagittal reformatted images were created and reviewed COMPARISON: CT CT HEAD CERVICAL SPINE WO from 05/17/[address] HEAD WO from 07/20/2025 FINDINGS: Head CT Ventricles and Extra axial spaces: Normal in size and morphology for the patient's age. Hemorrhage: None. Cerebral parenchyma: No evidence of mass or acute infarct. Moderate atrophy. Moderate white matter changes of microvascular disease. Midline shift: None. Brainstem/Cerebellum: Normal. Calvarium: Normal. Visualized Paranasal sinuses/Mastoids: Clear. Soft tissues: Unremarkable. Cervical Spine CT BONES: Vertebral body heights are maintained. Degenerative reversal of the normal cervical lordosis. There is no evidence of acute fracture. Degenerative disc changes and facet degenerative changes are seen, greatest at C5-6 and C6-7. Advanced degenerative changes also present C1-2. Degenerative bony densities are noted superior to dens with articulation at the skull base. SOFT TISSUES: No paraspinal hematoma. The airway appears intact. No pneumothorax is seen at the lung apices. IMPRESSION: Head CT: No acute abnormality. C-spine CT: Degenerative changes, no acute abnormality. RADIATION DOSE DELIVERED: Total DLP DATA REPOSITORY: All CT scans at this facility are submitted to the National Radiology Data Registry (NRDR) Dose Index Registry (DIR) with the [employer] (ACR). RADIATION OPTIMIZATION: All CT scans at this facility use at least one of these dose optimization techniques: automated exposure control; mA and/or kV adjustment per patient size (includes targeted exams where dose is matched to clinical indication); or iterative reconstruction.
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
--- NOTE | 2025-08-29 15:00 | DI.CT_ITS ---
Exam(s) CT PELVIC WO EXAM: CT PELVIC WO CLINICAL HISTORY: L. hip pain, eval occult fx. TECHNIQUE: Imaging Protocol: Axial computed tomography images with coronal and sagittal reformatted images were created and reviewed. CONTRAST MATERIAL: Oral: no COMPARISON: CR XR PELVIS AP from 08/29/2025 FINDINGS: Bladder: Symmetric distention, no gross wall thickening. Bowel: No obstruction or bowel wall thickening. Anastomosis at the rectosigmoid. Appendix normal Peritoneal cavity: No ascites, collection or mesenteric inflammatory response. Reproductive: Hysterectomy. Bones: No fracture. Advanced degenerative changes in the lower lumbar spine. Degenerative changes of both hips. Enthesophytes at the greater trochanters and iliac wings. Soft tissues: Unremarkable. IMPRESSION: Degenerative changes. No acute abnormality. RADIATION DOSE DELIVERED: Total DLP DATA REPOSITORY: All CT scans at this facility are submitted to the National Radiology Data Registry (NRDR) Dose Index Registry (DIR) with the [employer] (A[employer]). RADIATION OPTIMIZATION: All CT scans at this facility use at least one of these dose optimization techniques: automated exposure control; mA and/or kV adjustment per patient size (includes targeted exams where dose is matched to clinical indication); or iterative reconstruction.
[2025-08-29 17:23] VITALS: PULSE 78; RESP 18; O2SAT 97
== END 2025-08-29 17:24 | disposition home or self-care (01) ==
PROVIDERS: Emergency Provider Emergency Medicine; PCP Nurse Practitioner Family
DX: S70.02XA Contusion of left hip, initial encounter (principal); M16.12 Unilateral primary osteoarthritis, left hip; Z60.8 Other problems related to social environment; W19.XXXA Unspecified fall, initial encounter
CPT/HCPCS: 99283; 99284; 73552; 73562; 70450; 72125; 72170; 72192

== ENCOUNTER 2025-09-09 12:32 | Outpatient (CLI) | payer MEDICARE, SELFPAY ==
--- NOTE | 2025-09-09 12:30 | RT.EKG_ITS ---
APPROVED REPORT Exam: Resting ECG Reason for Exam: tachycardia Patient Location: O HR:106 bpm ECG Measurements Heart Rate 106 AXIS RI 190 P 252 QRSd 121 QRS -21 QT 316 T 95 QTc 420 Conclusion Sinus l tachycardia...P axis (-45,135), rate> 99 Atrial premature complex...SV complex w/ short R-R interval IVCD
== END 2025-09-09 12:33 | disposition home or self-care (01) ==
LOC: DI.CM 12:34
PROVIDERS: PCP Nurse Practitioner Family; Visit Provider Nurse Practitioner Family
DX: R00.0 Tachycardia, unspecified (principal); I44.7 Left bundle-branch block, unspecified
CPT/HCPCS: 93010

== ENCOUNTER 2025-09-09 13:46 | Emergency (ER) | payer MEDICARE, SELFPAY ==
[2025-09-09] VITALS (22 sets, daily range): BP systolic 151–221; BP diastolic 50–140; PULSE 69–145; RESP 8–20; TEMP 36.6–37.1; O2SAT 97–100
--- NOTE | 2025-09-09 13:45 | RT.EKG_ITS ---
APPROVED REPORT Exam: Resting ECG Reason for Exam: palpatations Patient Location: E HR:130 bpm ECG Measurements Heart Rate 130 AXIS LA [id number] P [id number] QRSd 109 QRS -32 QT 324 T 111 QTc 478 Conclusion Atrial fibrillation...? atrial activity Incomplete left bundle branch block...QRSd>110mS, terminal axis(-90,-1) No STEMI
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
[2025-09-09 14:22] LABS: Abs Immature Grans 0.03 10^3/uL (0.0-0.06); HCT 36.4 % (36.0-46.0); HGB 12.0 g/dL (11.2-15.7); Immature Grans % 0.3 %; MCH 30.8 pg (27.0-33.0); MCHC 33.0 % (32.0-36.0); MCV 94 fL (80-95); MPV 9.4 fL (8.0-11.0); Platelet Count 383 10^3/uL (130-400); RBC 3.89 10^6/uL (3.93-5.22); RDW 12.6 % (11.7-14.6); RDW-SD 43.2 fL; WBC 9.31 10^3/uL (4.4-10.8)
[2025-09-09] MEDS: dilTIAZem 25 MG/5 ML VIAL 20 MG IVP (14:22)
[2025-09-09] MEDS: Metoprolol CR 50 MG TABCR 75 MG PO (14:24)
[2025-09-09] MEDS: Normal Saline 500 ML 1000 ML IV (14:25)
[2025-09-09 14:36] LABS: Magnesium 2.4 mg/dL (1.6-2.6)
[2025-09-09 14:38] LABS: ALT 11 U/L (10-49); AST 23 U/L (<34); Albumin 4.9 g/dL (3.4-5.0); Alkaline Phosphatase 125 U/L (46-116); Anion Gap 13.5 mmol/L (3-11); BUN 51 mg/dL (9-23); Bilirubin, Total 0.60 mg/dL (0.2-1.2); CO2 27.7 mmol/L (20.0-31.0); Calcium 10.6 mg/dL (8.3-10.6); Chloride 100 mmol/L (98-107); Glucose 131 mg/dL (74-106); Potassium 3.6 mmol/L (3.5-5.1); Sodium 141 mmol/L (136-145); Total Protein 8.0 g/dL (5.7-8.2)
[2025-09-09 14:41] LABS: TSH (W/Ref FT4) 1.70 uIU/mL (0.55-4.78)
[2025-09-09 15:05] LABS: Troponin I 76 ng/L (<35)
[2025-09-09 15:53] LABS: Troponin I 74 ng/L (<35)
[2025-09-09] MEDS: Metoprolol CR 50 MG TABCR 25 MG PO (16:15)
[2025-09-09 21:57] LABS: Glucose Negative (Negative)
[2025-09-09 22:01] LABS: RBC 0-2 HPF (0-2)
== END 2025-09-09 18:17 | disposition home or self-care (01) ==
PROVIDERS: Nurse Practitioner Family; Student in an Organized Health Care Education/Training Program; Emergency Provider General Practice; PCP Nurse Practitioner Family
DX: R00.2 Palpitations (principal); I48.0 Paroxysmal atrial fibrillation; I44.7 Left bundle-branch block, unspecified; I12.9 Hypertensive chronic kidney disease with stage 1 through stage 4 chronic kidney disease, or unspecified chronic kidney disease; N18.4 Chronic kidney disease, stage 4 (severe); E78.5 Hyperlipidemia, unspecified; Z99.81 Dependence on supplemental oxygen; Z87.891 Personal history of nicotine dependence
CPT/HCPCS: 36415; 80053; 93005; 96361; 96374; 99284; 81003; 81015; 83735; 84443; 84484; 85025; 93010

== ENCOUNTER 2025-09-21 15:33 | Outpatient (REF) | payer MEDICARE, SELFPAY ==
[2025-09-21 17:07] LABS: Glucose Negative (Negative)
[2025-09-21 17:30] LABS: RBC 0-2 HPF (0-2); WBC >50 HPF (0-5)
[2025-09-21 17:31] LABS: C & S Indicated? Yes
== END 2025-09-21 15:34 | disposition home or self-care (01) ==
LOC: LBN 15:33
PROVIDERS: PCP Nurse Practitioner Family; Visit Provider Nurse Practitioner Family
DX: R30.0 Dysuria (principal); I13.0 Hypertensive heart and chronic kidney disease with heart failure and stage 1 through stage 4 chronic kidney disease, or unspecified chronic kidney disease; N18.4 Chronic kidney disease, stage 4 (severe); D63.1 Anemia in chronic kidney disease
CPT/HCPCS: 87077; 81003; 81015; 87086; 87186

== ENCOUNTER → 2025-09-27 11:13 | Outpatient (BNVA) | payer MEDICARE, SELFPAY | PROVIDERS: PCP Nurse Practitioner Family; Referring Provider Nurse Practitioner Family; Visit Provider Podiatrist | DX: N18.4 Chronic kidney disease, stage 4 (severe) (principal); G60.9 Hereditary and idiopathic neuropathy, unspecified; I73.89 Other specified peripheral vascular diseases; I87.2 Venous insufficiency (chronic) (peripheral); L60.3 Nail dystrophy; B35.1 Tinea unguium; L60.2 Onychogryphosis; Z89.422 Acquired absence of other left toe(s); R09.89 Other specified symptoms and signs involving the circulatory and respiratory systems; R60.0 Localized edema; R20.8 Other disturbances of skin sensation; I83.93 Asymptomatic varicose veins of bilateral lower extremities; R23.4 Changes in skin texture; L53.8 Other specified erythematous conditions; L65.9 Nonscarring hair loss, unspecified | CPT/HCPCS: 11719; 11720 ==

== ENCOUNTER 2025-10-03 13:38 | Outpatient (CLI) | payer MEDICARE, SELFPAY ==
[2025-10-03 14:55] LABS: Lab Add On Test DONE
[2025-10-03 16:21] LABS: Abs Immature Grans 0.07 10^3/uL (0.0-0.06); HCT 32.1 % (36.0-46.0); HGB 10.5 g/dL (11.2-15.7); Immature Grans % 0.5 %; MCH 31.7 pg (27.0-33.0); MCHC 32.7 % (32.0-36.0); MCV 97 fL (80-95); MPV 10.5 fL (8.0-11.0); Platelet Count 342 10^3/uL (130-400); RBC 3.31 10^6/uL (3.93-5.22); RDW 13.2 % (11.7-14.6); RDW-SD 46.7 fL; WBC 12.92 10^3/uL (4.4-10.8)
[2025-10-03 16:35] LABS: ALT 14 U/L (10-49); AST 22 U/L (<34); Albumin 4.1 g/dL (3.2-5.0); Alkaline Phosphatase 93 U/L (46-116); Anion Gap 11.9 mmol/L (3-11); BUN 66 mg/dL (9-23); Bilirubin, Total 0.4 mg/dL (0.2-1.2); CO2 27.1 mmol/L (20.0-31.0); Calcium 9.3 mg/dL (8.3-10.6); Chloride 103 mmol/L (98-107); Glucose 133 mg/dL (74-106); Potassium 4.3 mmol/L (3.5-5.1); Sodium 142 mmol/L (136-145); Total Protein 6.3 g/dL (5.7-8.2)
[2025-10-03 16:37] LABS: Cholesterol 225 mg/dL (<200); HDL Cholesterol 51 mg/dL (>40)
== END 2025-10-03 13:39 | disposition home or self-care (01) ==
PROVIDERS: PCP Nurse Practitioner Family; Visit Provider Nurse Practitioner Family
DX: N18.4 Chronic kidney disease, stage 4 (severe) (principal); E78.5 Hyperlipidemia, unspecified
CPT/HCPCS: 36415; 80053; 80061; 85025

== ENCOUNTER → 2025-10-10 11:12 | Outpatient (BNVA) | payer MEDICARE, SELFPAY | PROVIDERS: PCP Nurse Practitioner Family; Referring Provider Nurse Practitioner Family; Visit Provider Student in an Organized Health Care Education/Training Program | DX: Z51.89 Encounter for other specified aftercare (principal); S41.102A Unspecified open wound of left upper arm, initial encounter; W18.30XA Fall on same level, unspecified, initial encounter; Y92.002 Bathroom of unspecified non-institutional (private) residence as the place of occurrence of the external cause; Z79.01 Long term (current) use of anticoagulants | CPT/HCPCS: 99213 ==